=== PATIENT | male | born 1940 | race Caucasian/White ===

== ENCOUNTER 2020-05-22 09:50 | Outpatient (REF) | payer MEDICARE, SELFPAY ==
[2020-05-22 11:51] LABS: Basophils Percent Auto 0.8 % (0-2); Eosinophils Absolute Auto 0.2 X10*3/uL (0.0-0.4); Eosinophils Percent Auto 3.9 % (0-4); Hematocrit 28.3 % (42-52); Hemoglobin 9.2 g/dl (14.0-18.0); Imm Gran Abs Auto 0.03 X10*3/uL (0.00-0.03); Imm Gran Pct Auto 0.8 % (0.0-0.4); Lymphocytes Absolute Auto 0.6 X10*3/uL (1.2-4.9); Lymphocytes Percent Auto 16.5 % (20-40); MANUAL DIFF FLAG SCAN; Mean Corpuscular HGB Conc 32.5 g/dl (31.0-36.0); Mean Corpuscular Hemoglobin 33.9 pg (27.0-33.0); Mean Corpuscular Volume 104.4 fL (80-98); Monocytes Absolute Auto 0.5 X10*3/uL (0.1-1.2); Monocytes Percent Auto 13.7 % (2-11); Neutrophils Absolute Auto 2.5 X10*3/uL (2.0-8.3); Neutrophils Percent Auto 64.3 % (45-73); Platelet Count 172 X10*3/uL (160-400); Red Blood Count 2.71 X10*6/uL (4.60-5.80); Red Cell Distribution Width 13.2 % (11.0-16.0); SCAN SMEAR FLAG 1; White Blood Count 3.9 X10*3/uL (4.8-10.8)
[2020-05-22 12:10] LABS: Alanine Aminotransferase 42 U/L (0-40); Albumin Level 3.9 g/dL (3.5-5.0); Alkaline Phosphatase 77 U/L (39-117); Anion Gap 13 (12-20); Aspartate Amino Transferase 56 U/L (5-37); Bilirubin Total 0.8 mg/dL (0.0-1.0); Blood Urea Nitrogen 24 mg/dL (9-16); Calcium 8.2 mg/dL (8.4-10.2); Carbon Dioxide 23 mmol/L (22-29); Chloride 103 mmol/L (96-108); Cholesterol 113 mg/dL; Estimated Glomerular Filt Rate 24; Glucose Fasting 160 mg/dL (60-99); HDL Cholesterol 25 mg/dL; LDL Cholesterol Calculated 61 mg/dl; Potassium 4.8 mmol/l (3.3-5.1); Sodium 134 mmol/L (135-145); Total Protein 7.3 g/dL (6.5-8.0); Triglycerides 139 mg/dL
[2020-05-22 12:13] LABS: B Type Natriuretic Peptide 275 pg/mL (<100)
[2020-05-22 12:34] LABS: Creatinine Urine 33.93 mg/dL; Microalbum/Creatinine Ratio Ur 144.4 ug/mg cr
[2020-05-22 12:36] LABS: T4 Thyroxine 9.7 ug/dL (4.5-12.0); Thyroid Stimulating Hormone 4.71 uIU/mL (0.32-4.0); Vitamin D 25-OH Total 29.8 ng/mL (>30)
[2020-05-22 12:41] LABS: Folate 3.5 ng/mL (> or = 4.0); Vitamin B12 301 pg/mL (200-900)
[2020-05-22 13:14] LABS: SLIDE REVIEW VERIFIED
[2020-05-23 12:17] LABS: Free Prostate Spec Ag 0.9 ng/mL; Percent Free Prostate Spec Ag 16 % (calc) (>25); Prostate Specific Ag Total 5.8 ng/mL (< OR = 4.0)
== END 2020-05-22 09:51 | disposition home or self-care (01) ==
LOC: HO.HMGCLDS 09:50
PROVIDERS: PCP Internal Medicine; Visit Provider Urology
DX: R94.6 Abnormal results of thyroid function studies (principal); E11.65 Type 2 diabetes mellitus with hyperglycemia; I13.0 Hypertensive heart and chronic kidney disease with heart failure and stage 1 through stage 4 chronic kidney disease, or unspecified chronic kidney disease; I50.9 Heart failure, unspecified; N18.4 Chronic kidney disease, stage 4 (severe); E11.22 Type 2 diabetes mellitus with diabetic chronic kidney disease; I25.10 Atherosclerotic heart disease of native coronary artery without angina pectoris; E66.9 Obesity, unspecified; E78.00 Pure hypercholesterolemia, unspecified; I48.91 Unspecified atrial fibrillation
CPT/HCPCS: 36415; 80053; 80061; 82043; 82306; 82607; 82746; 83880; 84153; 84436; 84443; 85025

== ENCOUNTER 2020-10-03 14:58 | Outpatient (REF) | payer MEDICARE, SELFPAY ==
--- NOTE | ~2020-10-03 | XR_ITS ---
EXAMINATION: XR CHEST XR RIBS, RIGHT CLINICAL INFORMATION: Fall, trauma, right rib pain. COMPARISON: Chest radiographs 09/15/2019, 10/12/2018 TECHNIQUE: Frontal and lateral views of the chest are obtained along with 3 views of the right ribs for a total of 5 views. FINDINGS: There is minimally displaced fracture distal end right ninth rib. There is questionable hairline fracture distal eighth rib on one of the views. A lucency overlying the distal right 11th rib on one of the views may be related to skin fold artifact rather than fracture. There is no destructive process. The lungs are clear. There is no pneumothorax or pleural reaction or effusion. No airspace consolidation. There is bipolar pacemaker again noted. The cardiac and hilar and mediastinal contours are stable. Mild degenerative changes again seen thoracic spine. XR/XR ribs RT 2V IMPRESSION: 1. Minimally displaced fracture distal end right 9th rib. Questionable hairline fracture 8th rib. Probable skin fold artifact overlying distal right 11th rib rather than fracture. 2. No pneumothorax, airspace consolidation, pleural reaction, or effusion.
--- NOTE | ~2020-10-03 | XR_ITS ---
EXAMINATION: XR CHEST XR RIBS, RIGHT CLINICAL INFORMATION: Fall, trauma, right rib pain. COMPARISON: Chest radiographs 09/15/2019, 10/12/2018 TECHNIQUE: Frontal and lateral views of the chest are obtained along with 3 views of the right ribs for a total of 5 views. FINDINGS: There is minimally displaced fracture distal end right ninth rib. There is questionable hairline fracture distal eighth rib on one of the views. A lucency overlying the distal right 11th rib on one of the views may be related to skin fold artifact rather than fracture. There is no destructive process. The lungs are clear. There is no pneumothorax or pleural reaction or effusion. No airspace consolidation. There is bipolar pacemaker again noted. The cardiac and hilar and mediastinal contours are stable. Mild degenerative changes again seen thoracic spine. XR/XR chest 2V IMPRESSION: 1. Minimally displaced fracture distal end right 9th rib. Questionable hairline fracture 8th rib. Probable skin fold artifact overlying distal right 11th rib rather than fracture. 2. No pneumothorax, airspace consolidation, pleural reaction, or effusion.
[2020-10-03 16:38] LABS: Glucose Urine UA NEG (NEG); Leukocyte Esterase Urine NEG (NEG); Nitrite Urine NEG (NEG); Urine Blood 3+ (NEG); Urine Ketones NEG (NEG); Urine Protein 1+ MG/DL (NEG-TRACE)
[2020-10-03 16:39] LABS: Appearance Urine CLEAR; Color Urine YELLOW
[2020-10-03 16:47] LABS: Basophils Percent Auto 0.5 % (0-2); Eosinophils Absolute Auto 0.1 X10*3/uL (0.0-0.4); Eosinophils Percent Auto 2.3 % (0-4); Imm Gran Abs Auto 0.05 X10*3/uL (0.00-0.03); Imm Gran Pct Auto 1.1 % (0.0-0.4); Lymphocytes Absolute Auto 0.5 X10*3/uL (1.2-4.9); MANUAL DIFF FLAG SCAN; Mean Corpuscular HGB Conc 32.7 g/dl (31.0-36.0); Mean Platelet Volume 10.5 fL (9.4-12.4); Monocytes Absolute Auto 0.8 X10*3/uL (0.1-1.2); Monocytes Percent Auto 18.8 % (2-11); Neutrophils Absolute Auto 2.9 X10*3/uL (2.0-8.3); Neutrophils Percent Auto 65.3 % (45-73); Platelet Count 102 X10*3/uL (160-400); Red Cell Distribution Width 16.3 % (11.0-16.0); SCAN SMEAR FLAG 1; White Blood Count 4.4 X10*3/uL (4.8-10.8)
[2020-10-03 16:52] LABS: Bacteria Urine TRACE /LPF; RBC Urine 30-49 /HPF (0); Squamous Epithelial Cell Urine 1+ /LPF
[2020-10-03 16:53] LABS: Mucus Urine 2+ /LPF
[2020-10-03 17:03] LABS: Alanine Aminotransferase 72 U/L (0-40); Albumin Level 3.4 g/dL (3.5-5.0); Alkaline Phosphatase 181 U/L (39-117); Anion Gap 19 (12-20); Aspartate Amino Transferase 118 U/L (5-37); Bilirubin Total 1.4 mg/dL (0.0-1.0); Blood Urea Nitrogen 36 mg/dL (9-16); Calcium 8.6 mg/dL (8.4-10.2); Carbon Dioxide 23 mmol/L (22-29); Chloride 103 mmol/L (96-108); Estimated Glomerular Filt Rate 26; Glucose Random 168 mg/dL (60-115); Potassium 4.2 mmol/L (3.3-5.1); Sodium 141 mmol/L (135-145); Total Protein 7.6 g/dL (6.5-8.0)
[2020-10-03 17:27] LABS: Creatinine Urine 77.61 mg/dL; Microalbum/Creatinine Ratio Ur 144.3 ug/mg cr
[2020-10-03 17:30] LABS: Hemoglobin 6.8 g/dl (14.0-18.0)
[2020-10-03 17:31] LABS: Hematocrit 20.8 % (42-52)
[2020-10-03 17:42] LABS: SLIDE REVIEW VERIFIED
[2020-10-04 08:09] LABS: Estimated Average Glucose 120 mg/dL; Hemoglobin A1c % 5.8 %
== END 2020-10-03 14:59 | disposition home or self-care (01) ==
LOC: HO.HMGCX 14:58
PROVIDERS: PCP Internal Medicine; Visit Provider Nurse Practitioner Family
DX: Z13.89 Encounter for screening for other disorder (principal)
CPT/HCPCS: 36415; 71046; 71100; 80053; 81001; 82043; 83036; 85025; 87086

== ENCOUNTER 2020-10-03 18:12 | Inpatient (IN) | payer MEDICARE, SELFPAY ==
[2020-10-03] VITALS (8 sets, daily range): BP systolic 113–135; BP diastolic 41–59; PULSE 90–105; RESP 16–22; TEMP 36.4–37.1; O2SAT 93–100; BMI 27.8
[2020-10-03 18:27] LABS: Glucose, Whole Blood 143 mg/dL (60-115)
--- NOTE | 2020-10-03 18:50 | ECG_ITS ---
Test Reason : RECHECK Blood Pressure : / mmHG Vent. Rate : 094 BPM Atrial Rate : 094 BPM P-R Int : 208 ms QRS Dur : 098 ms QT Int : 422 ms P-R-T Axes : 119 -01 106 degrees QTc Int : 527 ms Normal sinus rhythm Left ventricular hypertrophy with repolarization abnormality ST depression in anterior, lateral leads, LVH vs ischemia; Prolonged QT Abnormal ECG When compared with ECG of 06-MAY-2018 09:40, Sinus rhythm has replaced Electronic ventricular pacemaker Referred By: Tomasz Sarmiento Electronically Signed By:LILIYA FUENTES
--- NOTE | 2020-10-03 18:52 | ED_ITS ---
HPI - General Adult General Chief complaint: Recheck/Abnormal Lab/Rx Stated complaint: light headed Time Seen by Provider: 10/03/20 18:38 Source: patient Mode of arrival: EMS Limitations: no limitations History of Present Illness HPI narrative: Patient with history of atrial fibrillation on Eliquis with recent admission in [facility] for gross hematuria hemoccult was also positive requiring 5 units of blood transfusion patient refused colonoscopy at that time comes here from outpatient clinic for hemoglobin of 6.8 patient been feeling weak and tired for last few days denies any chest pain or shortness of breath just feels exhausted patient denies any melena or gross hematuria Patient's old records were reviewed from [facility] patient been going in and out at [facility] since July for hematuria does have a complex medical history includes hypertension hyperlipidemia congestive heart failure grade 2 diastolic dysfunction coronary artery disease status post stent placement diabetes mellitus paroxysmal AFib on Eliquis with pacemaker, chronic renal disease stage III history of bilateral renal artery stenosis post stenting history of prostate cancer status post prostatectomy nephrolithiasis with hydronephrosis status post left ureteral stent placement and gross hematuria from 08/17 till 08/27 patient also had enterococcal bacteremia during admission patient required 5 units of blood transfusion for hemoglobin of 7.6 patient discharged on Zyvox until 09/28 Related Data Home Medications Medication Instructions Recorded Confirmed albuterol sulfate 90 mcg/actuation 2 puff INHALATION Q4-6H PRN 05/29/20 10/03/20 aerosol inhaler amiodarone 200 mg tablet 200 mg PO DAILY 05/29/20 10/03/20 cetirizine 10 mg capsule 10 mg PO QPM cap 05/29/20 10/03/20 insulin degludec 100 unit/mL (3 30 unit SUBCUT DAILY ml 05/29/20 10/03/20 mL) subcutaneous pen linagliptin 5 mg tablet 5 mg PO DAILY 05/29/20 10/03/20 omega 7-tlb-wzo-fish oil 1,200 mg 1 cap PO DAILY cap 05/29/20 10/03/20 (144 mg-216 mg) capsule rosuvastatin 20 mg tablet 20 mg PO QPM 05/29/20 10/03/20 apixaban 5 mg tablet 2.5 mg PO BID tab 10/03/20 10/03/20 metoprolol succinate 100 mg 100 mg PO QAM 10/03/20 10/03/20 capsule sprinkle, ext. release 24 hr torsemide 20 mg tablet 20 mg PO BID 10/03/20 10/03/20 Previous Rx's Medication Instructions Recorded zolpidem 5 mg tablet 5 mg PO BEDTIME PRN #90 tab 05/29/20 hydrocortisone 2.5 % topical cream 1 ea KS BID-QID PRN #30 g 08/02/20 with perineal applicator Allergies Allergy/AdvReac Type Severity Reaction Status Date / Time No Known Allergies Allergy Verified 10/03/20 18:33 [No Known Allergies*] Review of Systems Review of Systems: Constitutional : No Weight loss, No Fever, No Chills weakness++ ENT/Mouth : No sore throat, No Rhinorrhea Eyes: No Eye Pain, No Swelling Cardiovascular : No Chest Pain, no palpitations Respiratory : No Cough, No Sputum, no shortness of breath Gastrointestinal : no Nausea, No Vomiting, No Diarrhea, No abdominal Pain, no black stools Genitourinary : No Dysuria, No Urinary Frequency Musculoskeletal : No joint pain, No Myalgias, No Joint Swelling Skin : No Skin Lesions, No rash Neuro : No Weakness, No Numbness, No Dizziness, No Headache Psych : No Anxiety/Panic, No Depression Heme/Lymph: No Bruising, No Lymphadenopathy Endocrine : No Polyuria, No Polydipsia All other systems reviewed and are negative [facility] Past Medical History Medical History Abdominal aortic aneurysm Atrial fibrillation Chronic kidney disease (CKD) stage G4/A1, severely decreased glomerular filtration rate (GFR) between 15-29 mL/min/1.73 square meter and albuminuria creatinine ratio less than 30 mg/g Congestive heart failure Coronary artery disease History of CVA (cerebrovascular accident) History of prostate cancer Hypercholesterolemia Hypertension Insomnia Legally blind in right eye, as defined in [place] Obesity (BMI 30-39.9) Peripheral vascular disease Renal artery stenosis Retinal detachment Type 2 diabetes mellitus with hyperglycemia Surgical History History of cataract surgery History of pacemaker History of prostatectomy History of thumb surgery History of tonsillectomy Renal calculi Family History Family History Father No problems noted. Mother No problems noted. Social History Social History Household Members: Spouse Housing: Condominium Do you presently have visiting nurse or other home services: Yes Smoking Status: Never smoker Use of substances other than those prescribed or required for medical reasons: No Have you been hit, kicked, punched, or otherwise hurt by someone within the past year? If so, by whom?: No Do you feel safe in your current relationship?: Yes Is there a partner from a previous relationship who is making you feel unsafe now?: No Are you made to feel afraid or neglected: No Advance Directives: No Advance Directives Information Provided: No Do you have thoughts of harming others: None Do you have a plan to hurt others: No Plan Recently lost weight without trying: No Physical Exam Vital Signs: Vital Signs: Last Vital Signs Temp 97.5 F 10/04/20 00:09 Pulse 90 10/04/20 00:09 Resp 16 10/04/20 00:09 BP 116/48 L 10/04/20 00:09 Pulse Ox 93 10/03/20 23:36 Body Mass Index 27.8 Const: General: no acute distress, well developed and other (Pale looking) Nutritional Appearance: well nourished HENMT: Head: Yes normocephalic and Yes atraumatic Ears: hearing grossly normal bilaterally General nose exam: Normal external nose present Mouth: Normal oral and palatal mucosa present Teeth and gingiva: dentition normal Eyes: Conjunctivae: conjunctival abnormal (Pallor) Sclerae: sclerae normal Corneas: corneas normal Pupils: Equal, round and reactive pupils present Neck: Neck: Yes normal visual inspection and Yes no JVD Thyroid: Thyroid normal Chest: Chest palpation & inspection: normal inspection of the chest Resp: Effort & Inspection: normal respiratory effort Auscultation: clear to auscultation bilaterally and crackles (Bilateral at bases) Cardio: Jugular venous distension: no JVD Palpation: normal PMI Rate: regular rate Rhythm: regular rhythm Heart sounds: S1 normal heart sound present and S2 normal heart sound present GI: Inspection: Yes normal to inspection Auscultation: normal bowel sounds Rectal Exam - Male: Yes visual inspection normal, Yes heme positive stool and Yes other (Brown stool) Neuro: Cranial nerves: Yes Equal, round and reactive pupils present Medical Decision Making MDM Narrative Medical decision making narrative: Patient with significant anemia him hemoglobin at the time of discharge from [facility] was 10.2 at that time patient deferred colonoscopy since discharge patient denies any black stool or gross hematuria and hemoglobin is still dropped with his baseline hemoglobin of about 12. Also has decreased white count and platelet count possible patient has bone marrow suppression secondary to possible medication/infection /stress /myelofibrosis Patient will receive blood transfusions and plan to see rn infusion Lab Data Lab results reviewed: Yes I reviewed the patient's lab results. Result diagrams: 10/04/20 00:52 10/04/20 00:53 Labs: Lab Results 10/03/20 10/03/20 10/03/20 Range/Units 18:24 18:49 18:49 PT (10.8-13.0) SEC INR (0.9-1.1) APTT (24.1-38.0) SEC POC Glucose 143 H (60-115) mg/dL Troponin I High Sens (<3.5-35.0) ng/L B-Natriuretic Peptide (<100) pg/mL Stool Occult Blood POSITIVE (NEGATIVE) COVID-19 (NATACHA) (Negative) [employer] Blood Type O Negative Antibody Screen NEGATIVE Crossmatch See Detail 10/03/20 10/03/20 10/03/20 Range/Units 19:10 19:10 19:10 PT 16.6 H (10.8-13.0) SEC INR 1.4 H (0.9-1.1) APTT 32.7 (24.1-38.0) SEC POC Glucose (60-115) mg/dL Troponin I High Sens 159.1 H (<3.5-35.0) ng/L B-Natriuretic Peptide (<100) pg/mL Stool Occult Blood (NEGATIVE) COVID-19 (NATACHA) Negative (Negative) [employer] See Note Blood Type Antibody Screen Crossmatch 10/03/20 Range/Units 19:10 PT (10.8-13.0) SEC INR (0.9-1.1) APTT (24.1-38.0) SEC POC Glucose (60-115) mg/dL Troponin I High Sens (<3.5-35.0) ng/L B-Natriuretic Peptide 886 H (<100) pg/mL Stool Occult Blood (NEGATIVE) COVID-19 (NATACHA) (Negative) COVID-19 Clin Com Blood Type Antibody Screen Crossmatch ECG Data Attestation: I personally reviewed and interpreted this ECG as follows: Interpretation: Normal sinus rhythm LVH heart rate 94 beats per minute normal intervals normal axis no acute ischemic changes Discharge Plan Discharge Clinical Impression: Severe anemia, Occult GI bleeding Patient Disposition: Admitted As Inpatient Interventions: Admission Worksheet (ED) Last Done: 10/04/20 00:44 Discharge Date/Time: 10/03/20 23:00
[2020-10-03] MEDS: Pantoprazole Sodium 40 MG/10 ML VIAL IVPUSH (18:59)
[2020-10-03 19:03] LABS: OBS Int Ctl Valid YES; OBS1 POSITIVE (NEGATIVE)
[2020-10-03 19:38] LABS: INTERNATIONAL NORM RATIO 1.4 (0.9-1.1); Prothrombin Time 16.6 SEC (10.8-13.0)
[2020-10-03 19:40] LABS: Partial Thromboplastin Time 32.7 SEC (24.1-38.0)
[2020-10-03 19:42] LABS: COVID-19 Test Negative (Negative)
[2020-10-03 19:47] LABS: B Type Natriuretic Peptide 886 pg/mL (<100)
[2020-10-03 20:00] LABS: Troponin-I High Sensitivity 159.1 ng/L (<3.5-35.0)
--- NOTE | 2020-10-03 20:39 | PC.NURSE ---
pt tolerating first transfusion well. skin colour improving. remains slightly sob at rest. hospitalist to bedside. awaiting bed assignment.
--- NOTE | 2020-10-03 21:40 | P.HPHOSP_ITS ---
History of Present Illness Date of Service: 10/03/20 Chief Complaint: abnormal lab This is a 80-year-old male with extensive past medical history that includes hypertension, type 2 diabetes, CHF preserved ejection fraction, AFib, CVA, prostate cancer status post prostatectomy, HLD, who presents to the hospital sta ting that he had abnormal labs. Of note patient had an extensive hospital stay at [facility] in August and in September for various reasons including in August for acute hypoxic respiratory failure secondary to decompensated CHF as well as lower GI bleed as well as hematuria secondary to left ureteral stone, he was managed with placement of ureteral stent and was sent home. In early September patient once again return to the hospital after removal of the ureteral stent resulted in hematuria but he also had sepsis secondary to Enterococcus bacteremia. Patient was discharged from the hospital on September 18 and has been doing well. He comes from home today stating that he had routine lab work done for his doctor which showed hemoglobin was low and therefore he was asked to come to the hospital. He denies any melena, he denies any martinez hematuria, denies any bright red blood per rectum. He has no hemoptysis, hematochezia, or hematemesis. He had refused colonoscopy at [facility]. He denies any nausea vomiting, no abdominal pain, no diarrhea constipation. He denies any headache, no change in vision, no chest pain or shortness of breath. He denies any cough, and no lower extremity edema. No orthopnea or PND. He has been feeling fatigued and slightly dizzy today otherwise doing well. On arrival to the ED patient's vital significant for 98.4, heart rate of 99, respiratory rate of 20, blood pressure 135/59, satting 100% on room air WBC count 3.8, hemoglobin of 6.8 status post 1 unit of PRBC in the ED, discharge hemoglobin from [facility] was 7.6 on September 18, PT of 16.6, INR 1.4, sodium of 136, potassium of 4.2, high sensitivity troponin of 159.1, and BNP of 886, UA that is positive for blood and RBC, COVID-19 negative, stool occult blood positive Past medical history as below and confirmed with patient Review of Systems Review of Systems: Yes all other systems are reviewed and are negative [facility] Medical History Abdominal aortic aneurysm Atrial fibrillation Chronic kidney disease (CKD) stage G4/A1, severely decreased glomerular filtration rate (GFR) between 15-29 mL/min/1.73 square meter and albuminuria creatinine ratio less than 30 mg/g Congestive heart failure Coronary artery disease History of CVA (cerebrovascular accident) History of prostate cancer Hypercholesterolemia Hypertension Insomnia Legally blind in right eye, as defined in [place] Obesity (BMI 30-39.9) Peripheral vascular disease Renal artery stenosis Retinal detachment Type 2 diabetes mellitus with hyperglycemia Family History Father No problems noted. Mother No problems noted. Surgical History History of cataract surgery History of pacemaker History of prostatectomy History of thumb surgery History of tonsillectomy Renal calculi Social History Household Members: Spouse [facility] Do you presently have visiting nurse or other home services: Yes Smoking Status: Never smoker Use of substances other than those prescribed or required for medical reasons: No Have you been hit, kicked, punched, or otherwise hurt by someone within the past year? If so, by whom?: No Do you feel safe in your current relationship?: Yes Is there a partner from a previous relationship who is making you feel unsafe now?: No Are you made to feel afraid or neglected: No Advance Directives: No Advance Directives Information Provided: No Do you have thoughts of harming others: None Do you have a plan to hurt others: No Plan Recently lost weight without trying: No Meds Allergies Allergy/AdvReac Type Severity Reaction Status Date / Time No Known Allergies Allergy Verified 10/03/20 18:33 [No Known Allergies*] Active Medications: Current Medications Generic Name Dose Route Start Last Admin Trade Name Freq PRN Reason Stop Dose Admin Pantoprazole Sodium 40 mg 10/04/20 06:30 Pantoprazole Sodium 40 Mg/10 Ml Vial IVPUSH [id number] [facility] Consult 1 each 10/03/20 19:43 Consult Rx Perform Med Rec MISCELLANE ONCE PRN Consult order Home Medications Medication Instructions Recorded Confirmed Last Taken Type albuterol sulfate 90 mcg/actuation 2 puff INHALATION Q4-6H PRN 05/29/20 10/03/20 Unknown History aerosol inhaler amiodarone 200 mg tablet 200 mg PO DAILY 05/29/20 10/03/20 Unknown History cetirizine 10 mg capsule 10 mg PO QPM cap 05/29/20 10/03/20 Unknown History insulin degludec 100 unit/mL (3 30 unit SUBCUT DAILY ml 05/29/20 10/03/20 Unknown History mL) subcutaneous pen linagliptin 5 mg tablet 5 mg PO DAILY 05/29/20 10/03/20 Unknown History omega 2-nhl-cli-fish oil 1,200 mg 1 cap PO DAILY cap 05/29/20 10/03/20 Unknown History (144 mg-216 mg) capsule rosuvastatin 20 mg tablet 20 mg PO QPM 05/29/20 10/03/20 Unknown History apixaban 5 mg tablet 2.5 mg PO BID tab 10/03/20 10/03/20 Unknown History metoprolol succinate 100 mg 100 mg PO QAM 10/03/20 10/03/20 Unknown History capsule sprinkle, ext. release 24 hr torsemide 20 mg tablet 20 mg PO BID 10/03/20 10/03/20 Unknown History Physical Exam Vital Signs and Narrative: Vital Signs: Last Vital Signs Temp 98.8 F 10/03/20 20:38 Pulse 97 10/03/20 20:38 Resp 22 H 10/03/20 20:38 BP 113/45 L 10/03/20 20:38 Pulse Ox 99 10/03/20 20:20 Body Mass Index 27.8 Const: General: cooperative and no acute distress Orientation/consciousness: patient oriented x3 Eyes: Other: legally blind in right eye General: appearance normal, both eyes and all related structures Resp: Effort & Inspection: normal respiratory effort and able to speak in complete sentences Auscultation: clear to auscultation bilaterally Cardio: Rate: regular rate Rhythm: regular rhythm GI: Palpation (GI): Soft to palpation Auscultation: normal bowel sounds Skin: General skin exam: no rashes or lesions noted Neuro: General: patient oriented x3 Cognition (Neuro): normal cognition Extrem: General: Yes normal to inspection and Yes no pedal edema Results Labs CBC and Chem 7: 10/04/20 00:52 10/04/20 00:53 Labs: Laboratory Results - last 24 hr 10/03/20 10/03/20 10/03/20 18:24 18:49 18:49 PT INR APTT POC Glucose 143 H Troponin I High Sens B-Natriuretic Peptide Stool Occult Blood POSITIVE COVID-19 ([facility]ACHA) COVID-19 Clin Com Blood Type O Negative Antibody Screen NEGATIVE Crossmatch See Detail 10/03/20 10/03/20 10/03/20 19:10 19:10 19:10 PT 16.6 H INR 1.4 H APTT 32.7 POC Glucose Troponin I High Sens 159.1 H B-Natriuretic Peptide Stool Occult Blood COVID-19 (NATACHA) Negative COVID-19 Clin Com See Note Blood Type Antibody Screen Crossmatch 10/03/20 19:10 PT INR APTT POC Glucose Troponin I High Sens B-Natriuretic Peptide 886 H Stool Occult Blood COVID-19 (NATACHA) COVID-19 Clin Com Blood Type Antibody Screen Crossmatch Assessment and Plan (1) Severe anemia: Status: Acute (2) Occult GI bleeding: Status: Acute (3) Acquired pancytopenia: Status: Acute 80-year-old male with past medical history of AFib on apixaban, CHF with preserved ejection fraction, hypertension, diabetes, CAD who presents to the hospital with low hemoglobin # macrocytic anemia - patient had anemia at [facility] as well but at that time refused colonoscopy - placental hemoglobin of 6.9 with positive stool occult blood - received 1 unit of PRBC in the - denies using NSAIDs, no melena, no bright red blood per rectum plan: - will consult GI - started on 40 IV of pantoprazole b.i.d. - NPO for potential EGD/colonoscopy - transfusion threshold with a hemoglobin less than 7 # pancytopenia - patient has leukopenia, platelets also low - no acute evidence of infection - will monitor with repeat CBC # GI bleed - hemodynamically stable, with no large bleed - at this time will start him on pantoprazole, consult GI, make NPO # CHF - although patient has elevated BNP, he clinically does not have any evidence of CHF - has no dyspnea, no lower extremity edema, no orthopnea, no PND - will continue home dose of torsemide 20 mg b.i.d. - daily weight, and monitor I&O # atrial fibrillation - continue metoprolol, amiodarone, hold apixaban # diabetes - hold oral antihyperglycemic - start low-dose sliding scale insulin and continue home dose of insulin degludec - diabetic diet # hypertension - stable DVT prophylaxis: SCDs
--- NOTE | 2020-10-03 22:27 | PC.NURSE ---
PT TOLERATING 2ND BLOOD TRANSFUSION WELL. CALL MADE UP TO FLOOR FOR REPORT.
--- NOTE | 2020-10-03 23:25 | PC.NURSE ---
PTTRANSPORTED TO FLOOR, BLOOD STILL INFUSING.
[2020-10-04] VITALS (13 sets, daily range): BP systolic 102–119; BP diastolic 47–55; PULSE 65–92; RESP 16–20; TEMP 36.1–37.2; O2SAT 94–99
--- NOTE | 2020-10-04 | ECG_ITS ---
Test Reason : ELEVATED TROPONIN Blood Pressure : / mmHG Vent. Rate : 089 BPM Atrial Rate : 089 BPM P-R Int : 212 ms QRS Dur : 098 ms QT Int : 444 ms P-R-T Axes : 104 -02 127 degrees QTc Int : 540 ms Sinus rhythm with 1st degree A-V block Left ventricular hypertrophy with repolarization abnormality ST depression in anterior and lateral leads- LVH vs ischemia; Prolonged QT Abnormal ECG When compared with ECG of 03-OCT-2020 20:56, No significant change was found Referred By: Tomasz Sarmiento Electronically Signed By:LILIYA FUENTES
[2020-10-04] MEDS: Furosemide 20 MG/2 ML VIAL IVPUSH (00:06)
[2020-10-04] MEDS: 0.9 % Sodium Chloride Flush 3 ML SYRINGE IVFLUSH ×4 (00:07→23:47)
[2020-10-04 00:55] LABS: Glucose, Whole Blood 149 mg/dL (60-115)
[2020-10-04 01:08] LABS: Basophils Percent Auto 0.3 % (0-2); Eosinophils Absolute Auto 0.1 X10*3/uL (0.0-0.4); Eosinophils Percent Auto 2.9 % (0-4); Hematocrit 23.5 % (42-52); Hemoglobin 7.9 g/dl (14.0-18.0); Imm Gran Abs Auto 0.08 X10*3/uL (0.00-0.03); Imm Gran Pct Auto 2.1 % (0.0-0.4); Lymphocytes Absolute Auto 0.5 X10*3/uL (1.2-4.9); Lymphocytes Percent Auto 14.2 % (20-40); MANUAL DIFF FLAG SCAN; Mean Corpuscular HGB Conc 33.6 g/dl (31.0-36.0); Mean Corpuscular Hemoglobin 32.4 pg (27.0-33.0); Mean Corpuscular Volume 96.3 fL (80-98); Mean Platelet Volume 10.3 fL (9.4-12.4); Monocytes Absolute Auto 0.7 X10*3/uL (0.1-1.2); Monocytes Percent Auto 19.4 % (2-11); Neutrophils Absolute Auto 2.3 X10*3/uL (2.0-8.3); Neutrophils Percent Auto 61.1 % (45-73); Platelet Count 89 X10*3/uL (160-400); Red Blood Count 2.44 X10*6/uL (4.60-5.80); Red Cell Distribution Width 18.5 % (11.0-16.0); SCAN SMEAR FLAG 1; White Blood Count 3.8 X10*3/uL (4.8-10.8)
[2020-10-04 01:24] LABS: SLIDE REVIEW VERIFIED
[2020-10-04 01:37] LABS: Anion Gap 17 (12-20); Blood Urea Nitrogen 32 mg/dL (9-16); Calcium 8.1 mg/dL (8.4-10.2); Carbon Dioxide 22 mmol/L (22-29); Chloride 101 mmol/L (96-108); Creatinine Clr Calc Pharmacy 26.4; Estimated Glomerular Filt Rate 27; Glucose Random 165 mg/dL (60-115); Potassium 3.6 mmol/L (3.3-5.1); Sodium 136 mmol/L (135-145)
[2020-10-04 02:26] LABS: Glucose Urine UA NEG (NEG); Leukocyte Esterase Urine NEG (NEG); Nitrite Urine NEG (NEG); Specific Gravity - Urine 1.015 (1.005-1.025); Urine Blood 1+ (NEG); Urine Ketones NEG (NEG); Urine Protein TRACE MG/DL (NEG-TRACE)
[2020-10-04 02:28] LABS: Appearance Urine CLEAR; Color Urine YELLOW
[2020-10-04 02:32] LABS: Bacteria Urine 1+ /LPF; Squamous Epithelial Cell Urine 1+ /LPF
[2020-10-04 05:02] LABS: MANUAL DIFF FLAG NO
[2020-10-04 05:06] LABS: Basophils Percent Auto 0.8 % (0-2); Eosinophils Absolute Auto 0.1 X10*3/uL (0.0-0.4); Eosinophils Percent Auto 3.3 % (0-4); Hematocrit 23.2 % (42-52); Hemoglobin 7.7 g/dl (14.0-18.0); Imm Gran Abs Auto 0.08 X10*3/uL (0.00-0.03); Lymphocytes Absolute Auto 0.8 X10*3/uL (1.2-4.9); Lymphocytes Percent Auto 20.2 % (20-40); Mean Corpuscular HGB Conc 33.2 g/dl (31.0-36.0); Mean Corpuscular Volume 96.3 fL (80-98); Mean Platelet Volume 10.2 fL (9.4-12.4); Monocytes Absolute Auto 0.7 X10*3/uL (0.1-1.2); Monocytes Percent Auto 18.7 % (2-11); Neutrophils Absolute Auto 2.2 X10*3/uL (2.0-8.3); Red Blood Count 2.41 X10*6/uL (4.60-5.80); Red Cell Distribution Width 18.6 % (11.0-16.0); White Blood Count 3.9 X10*3/uL (4.8-10.8)
[2020-10-04 05:15] LABS: Platelet Count 83 X10*3/uL (160-400)
[2020-10-04 05:51] LABS: Anion Gap 14 (12-20); Blood Urea Nitrogen 31 mg/dL (9-16); Calcium 7.8 mg/dL (8.4-10.2); Carbon Dioxide 24 mmol/L (22-29); Chloride 102 mmol/L (96-108); Creatinine Clr Calc Pharmacy 27.2; Estimated Glomerular Filt Rate 28; Glucose Random 134 mg/dL (60-115); Potassium 3.4 mmol/L (3.3-5.1); Sodium 137 mmol/L (135-145)
[2020-10-04 06:10] LABS: Troponin-I High Sensitivity 229.6 ng/L (<3.5-35.0)
[2020-10-04 06:13] LABS: Thyroid Stimulating Hormone 3.83 uIU/mL (0.32-4.0)
[2020-10-04] MEDS: Pantoprazole Sodium 40 MG/10 ML VIAL IVPUSH ×2 (06:27→16:01)
[2020-10-04 07:52] LABS: Glucose, Whole Blood 137 mg/dL (60-115)
[2020-10-04] MEDS: Amiodarone HCL 200 MG TABLET PO (07:55)
[2020-10-04] MEDS: Metoprolol Succinate ER 100 MG TAB.ER.24H PO (07:56)
[2020-10-04] MEDS: Atorvastatin Calcium 80 MG TABLET PO (07:56)
[2020-10-04] MEDS: Torsemide 20 MG TABLET PO ×2 (07:58→20:51)
[2020-10-04 08:49] LABS: Folate 2.6 ng/mL (> or = 4.0); Vitamin B12 426 pg/mL (200-900)
--- NOTE | 2020-10-04 09:00 | P.CDIC_ITS ---
CDI Concurrent Query Service Date: 10/04/20 Documentation Clarification: Please clarify if you are treating a proba ble/suspected/likely or confirmed: Acute Blood Loss Anemia No Acute Blood Loss Anemia Provider Response: Acute Blood Loss Anemia PLEASE DO NOT DELETE/MODIFY EXISTING CONTENT Additional information is needed in order to code to the highest accuracy and appropriate Severity of Illness (SOI). Please clarify the information noted below in your progress notes and discharge summary. Risk Factors/Clinical Indicators/Treatments 80 year old male admitted with abnormal labs, weak. Per H&P: Severe Anemia, Occult GIB, Acquired Pancytopenia stool occult blood + received blood transfusion, IV PPI H/H 6.8/20.8 CDS: Deb Carty RN Contact Number: [phone] Please Review the information above and exercise your independent professional judgment in responding to the query. If you concur, pleas document in the PROGRESS NOTES and DISCHARGE SUMMARY. If you do not agree with the query, please document in the query above. THIS QUERY IS PART OF THE PERMANENT MEDICAL RECORD
[2020-10-04 11:33] LABS: Glucose, Whole Blood 142 mg/dL (60-115)
--- NOTE | 2020-10-04 13:42 | MHC.CM.PN ---
IMM 10/04/20, EMR REVIEWED, PT ADMITTED W/GI BLEED, CM MET W/PT WHO IS ALERT AND ORIENTED, PT'S REPORTS HE SOUNDED CONFUSED ON THE PHONE HOWEVER PT WAS ABLE TO ANSWER ALL OF CM'S QUESTIONS EXCEPT WHICH [facility] COMPANY HE IS USING, PER PT HE LIVES W/ NEGRITO MARCUM, PT REPORTS HE IS INDEPENDENT WITH ALL CARE AT HOME, PT REPORTS HE USES A FRONT WHEELED WALKER AND HAS RAILS BY DOOR TO HOUSE FROM GARAGE AND IN BATHROOM, PT RERPORTS HE HAS WEEKLY VNA AND PER THEY ASSESS HIS VITAL SIGNS AND ASK HIM SEVERAL QUESTIONS, PLAN IS TO START PT ON HOME PT WHEN FRACTURED RIBS HAVE HEALED MORE, PT HAS NO OTHER SERVICES AT HOME. DISCHARGE PLAN: HOME W/RESUMP OF [facility]ERTIN [facility]ACHU[facility], TO TRANSPORT PCP: MU SALAZAR HCP: NEGRITO DEVI () [phone]
--- NOTE | 2020-10-04 14:03 | P.PNIM_ITS ---
Subjective Subjective Date of Service: 10/04/20 Interval History: Seen in f/u for anemia, positive occult blood, no dizziness, no chest pain and no sob at this time, transfused overnight and does feel better Review of Systems Gen: no fever Resp: no sob, no cough CV: no chest, no WRIGHT, no leg edema GI: No n/v, no abd pain, no active bleed Neuro: No confusion Physical Exam Vital Signs: Vital Signs: Last Vital Signs Temp 98.2 F 10/04/20 11:40 Pulse 76 10/04/20 11:40 Resp 19 10/04/20 11:40 BP 102/54 L 10/04/20 11:40 Pulse Ox 95 10/04/20 11:40 Body Mass Index 27.8 General: AO X 3, no acute distress Resp: CTA bilateral CVS: S1,S2,RRR GI: +BS, NT, no distention, rectal exam defered Skin: No rash Neuro: motor grossly intact Psych: appropriate affect Objective Data Current Medications Generic Name Dose Route Start Last Admin Trade Name Petersonq PRN Reason Stop Dose Admin Acetaminophen 650 mg 10/03/20 22:47 Acetaminophen 325 Mg Tablet PO Q6H PRN Pain, Mild (Pain Scale 1-3) Albuterol Sulfate 2 puff 10/03/20 22:47 Albuterol Sulfate 90 Mcg 8 Gm Inhaler INHALE Q4H PRN Wheezing Amiodarone HCl 200 mg 10/04/20 09:00 10/04/20 07:55 Amiodarone Hcl 200 Mg Tablet PO 200 mg DAILY JEANETTE Administration Atorvastatin Calcium 80 mg 10/04/20 09:00 10/04/20 07:56 Atorvastatin Calcium 80 Mg Tablet PO 80 mg DAILY JEANETTE Administration Docusate Sodium 100 mg 10/03/20 22:47 Docusate Sodium 100 Mg Capsule PO DAILY PRN Constipation Hydrocortisone 1 appl 10/03/20 22:47 Hydrocortisone 2.5 % Rectal Cr [address] QID PRN hemorrhoids Insulin Glargine 21 unit 10/04/20 09:00 10/04/20 07:58 Insulin Glargine,Hum.Rec.Anlog 100 Unit/Ml 10 Ml Vial SUBCUT Not Given DAILY [facility] Insulin Human Lispro 0 unit 10/04/20 07:30 10/04/20 11:35 Insulin Lispro 100 Unit/Ml 3 Ml Vial SUBCUT Not Given QIDACHS [facility] Protocol Loratadine 10 mg 10/03/20 22:47 10/04/20 00:08 Loratadine 10 Mg Tablet PO Not Given DAILY@1700 [facility] Metoprolol Succinate 100 mg 10/04/20 09:00 10/04/20 07:56 Metoprolol Succinate Er 100 Mg Tab.Er.24h PO 100 mg DAILY [facility] Administration Protocol Ondansetron HCl 4 mg 10/03/20 22:47 Ondansetron Hcl 4 Mg/2 Ml Vial IVPUSH Q8H PRN Nausea and Vomiting Pantoprazole Sodium 40 mg 10/04/20 06:30 10/04/20 06:27 Pantoprazole Sodium 40 Mg/10 Ml Vial IVPUSH 40 mg BID@0630,1630 [facility] Administration Pharmacy Consult 1 each 10/03/20 19:43 Consult Rx Perform Med Rec MISCELLANE ONCE PRN Consult order Sodium Chloride 3 ml 10/04/20 00:00 10/04/20 07:55 0.9 % Sodium Chloride Flush 3 Ml Syringe IVFLUSH 3 ml QSHIFT [facility] Administration Torsemide 20 mg 10/04/20 09:00 10/04/20 07:58 Torsemide 20 Mg Tablet PO 20 mg BID [facility] Administration Protocol Zolpidem Tartrate 5 mg 10/03/20 22:47 Zolpidem Tartrate 5 Mg Tablet PO BEDTIME PRN sleep Labs CBC & Chem 7: 10/04/20 04:43 10/04/20 04:43 Assessment and Plan (1) Severe anemia: Status: Acute (2) Occult GI bleeding: Status: Acute (3) Acquired pancytopenia: Status: Acute Assessment and Plan: 80-year-old male with past medical history of AFib on apixaban, CHF with preserved ejection fraction, hypertension, diabetes, CKD, CAD who presents to the hospital with much lower hemoglobin than baseline anemia # Acute blood loss anemia/macrocytic anemia/+occult blood - He has previously declined colonocopy at [facility] Presented with Hgb of 6.9 with positive stool occult blood - received 1 unit of PRBC in the and hgb now 7.7 and no active blee - denies using NSAIDs, no melena, no bright red blood per rectum - Consult GI - 40mg IV of pantoprazole b.i.d. - NPO for potential EGD/colonoscopy - transfusion threshold with a hemoglobin less than 7 # pancytopenia - patient has leukopenia, platelets also low -May benefit from outpatient heme w/u - will monitor with repeat CBC # CHF-compensated despite high BNP, continue torsemide # Atrial fibrillation - continue metoprolol, amiodarone, hold apixaban d/t anemia and likely gib # diabetes - hold oral antihyperglycemic - sliding scale insulin and continue home dose of insulin degludec - diabetic diet # hypertension - stable CKD 3, stable DVT prophylaxis: SCDs
--- NOTE | 2020-10-04 15:23 | MHC.SHP ---
Pre-Procedural Eval Section A The patient is an INPATIENT: Yes Changes since office visit: No Cold of Flu in the past 2 weeks, No New Medical Problems, No Changes in Medication and No Patient answered all questions The History & Physical has been completed within 30 days and I have reviewed it.: Yes Section B Chief Complaint: GI Bleed Allergies: Allergies Allergy/AdvReac Type Severity Reaction Status Date / Time No Known Allergies Allergy Verified 10/03/20 18:33 [No Known Allergies*] Plan I have reviewed the history and physical and performed a pertinent physical examination on my patient. No changes have occurred unless specified.
--- NOTE | 2020-10-04 15:24 | PM.EVENT ---
Event Note Date of Service: 10/04/20 Event Note: consult dictated Discussed egd/colonoscopy with patient for further evaluation of heme positive stool. He is agreeable, scheduled for 10/05.
[2020-10-04] MEDS: Loratadine 10 MG TABLET PO (16:01)
[2020-10-04 16:27] LABS: Glucose, Whole Blood 124 mg/dL (60-115)
[2020-10-04] MEDS: PEG 3350/Na Sulf,Bicarb,Cl/KCL 4,000 ML SOLN.RECON 4000 ML PO (18:01)
[2020-10-04] MEDS: Phytonadione (Vit K1) 10 MG in 0.9 % Sodium Chloride 50 ML 51 MG IV (18:07)
[2020-10-04 20:36] LABS: Glucose, Whole Blood 142 mg/dL (60-115)
--- NOTE | 2020-10-04 21:33 | CONS_ITS ---
DATE OF SERVICE: 10/04/2020 REFERRING PHYSICIAN: Deandre Kearney MD REASON FOR CONSULTATION: Anemia with Hemoccult-positive stools. HISTORY OF PRESENT ILLNESS: The patient is a pleasant 80-year-old man, who was admitted to the hospital after he was called by his provider for a low blood count. He has had a recent hospitalization at [facility] for multiple issues including congestive heart failure, kidney stone with hematuria and lower GI bleeding. He was seen in followup by his provider, who did blood work and documented a hematocrit of 20.8 and he was advised to come to the emergency room. He received 1 unit of packed red blood cells with improvement in his hematocrit to 23.5. Examination in the emergency room showed Hemoccult-positive stools. He denies any melena, hematemesis, or hematochezia. While at [facility], he did have lower GI bleeding and was seen and scheduled for colonoscopy, but could not tolerate the prep. He believes his last colonoscopy was 10 years ago or more by Dr. Ferrell. He has had no change in his bowel habits and has no upper GI symptoms. He is on Eliquis for atrial fibrillation. Last dose was 10/03 in the a.m. PAST MEDICAL HISTORY: 1. Atrial fibrillation. 2. Diabetes mellitus. 3. Hypertension. 4. Elevated cholesterol. 5. Coronary artery disease with stent placement and congestive heart failure. 6. Prostate cancer, status post prostatectomy. 7. CVA. 8. Chronic kidney disease. 9. Peripheral vascular disease with lower extremity stent placement and renal artery stent placement for renal artery stenosis. CURRENT MEDICATIONS: Current medication list is reviewed in the chart. ALLERGIES: THERE ARE NONE REPORTED. FAMILY HISTORY: This is reviewed with the patient and is positive for prostate cancer in his father. He denies any family history of GI malignancy. SOCIAL HISTORY: He does not smoke and there is no history of alcohol abuse. REVIEW OF SYSTEMS: SKIN: No pruritus. HEENT: Negative. CARDIOPULMONARY: No shortness of breath or chest pain. GASTROINTESTINAL: As above. GENITOURINARY: Negative. NEUROPSYCHIATRIC: Negative. PHYSICAL EXAMINATION: GENERAL: Shows a pleasant male, in no acute distress. VITAL SIGNS: Stable. SKIN: Pale. HEENT: Shows no scleral icterus. NECK: Without lymphadenopathy or thyromegaly. LUNGS: Clear. HEART: Irregular, S1, S2. No murmur. ABDOMEN: Soft without focal masses or tenderness. Bowel sounds are present. No organomegaly is noted. EXTREMITIES: Without edema. LABORATORY DATA: Remarkable for white blood cell count of 3.9, platelet count 83, hematocrit 23.2. IMPRESSION: Anemia with Hemoccult-positive stools. I discussed the differential diagnosis with him including GI tract blood loss from an upper or lower source. I have recommended further evaluation with endoscopy and colonoscopy. We discussed risks and benefits of both procedures today. He understands these and agrees to proceed. This will be arranged for tomorrow. I would recommend transfusing him 1 more unit of packed red blood cells given his multiple comorbid conditions. Thanks for asking me to see him. I will follow him in the hospital with you. MD GUSTABO Shukla/ALLISON / [phone]
[2020-10-05] VITALS (9 sets, daily range): BP systolic 98–127; BP diastolic 48–69; PULSE 63–84; RESP 16–20; TEMP 36.2–37.1; O2SAT 94–97
[2020-10-05] MEDS: Pantoprazole Sodium 40 MG/10 ML VIAL IVPUSH ×2 (06:03→17:03)
[2020-10-05 06:39] LABS: Hematocrit 26.7 % (42-52); Mean Corpuscular HGB Conc 33.7 g/dl (31.0-36.0); Mean Corpuscular Hemoglobin 32.1 pg (27.0-33.0); Mean Corpuscular Volume 95.4 fL (80-98); Mean Platelet Volume 10.4 fL (9.4-12.4); NRBC Pct Auto 0.7 /100WBC (0.0-0.2); Platelet Count 114 X10*3/uL (160-400); Red Cell Distribution Width 17.4 % (11.0-16.0); White Blood Count 4.4 X10*3/uL (4.8-10.8)
[2020-10-05 06:45] LABS: INTERNATIONAL NORM RATIO 1.2 (0.9-1.1); Prothrombin Time 13.8 SEC (10.8-13.0)
[2020-10-05 08:28] LABS: Glucose, Whole Blood 142 mg/dL (60-115)
[2020-10-05] MEDS: Amiodarone HCL 200 MG TABLET PO (08:34)
[2020-10-05] MEDS: Torsemide 20 MG TABLET PO ×2 (08:34→20:55)
[2020-10-05] MEDS: Metoprolol Succinate ER 100 MG TAB.ER.24H PO (08:34)
[2020-10-05] MEDS: 0.9 % Sodium Chloride Flush 3 ML SYRINGE IVFLUSH ×3 (08:35→20:56)
[2020-10-05] MEDS: Atorvastatin Calcium 80 MG TABLET PO (08:35)
--- NOTE | 2020-10-05 11:02 | P.CONAN_ITS ---
[facility] Active Problems Active Problems: All Active Problems (Updated 10/04/20 @ 01:23 by Bebeto Duque MD) Severe anemia (Acute) Occult GI bleeding (Acute) Acquired pancytopenia (Acute) Fall (Acute) Sepsis (Acute) Hypercholesterolemia (Acute) Atrial fibrillation (Acute) Obesity (BMI 30-39.9) (Acute) Chronic kidney disease (CKD) stage G4/A1, severely decreased glomerular filtration rate (GFR) between 15-29 mL/min/1.73 square meter and albuminuria creatinine ratio less than 30 mg/g (Acute) Hypertension (Acute) Type 2 diabetes mellitus with hyperglycemia (Acute) Insomnia (Acute) Congestive heart failure (Acute) Rectal bleed (Acute) Past Medical History Medical History Abdominal aortic aneurysm Atrial fibrillation Chronic kidney disease (CKD) stage G4/A1, severely decreased glomerular filtration rate (GFR) between 15-29 mL/min/1.73 square meter and albuminuria creatinine ratio less than 30 mg/g Congestive heart failure Coronary artery disease History of CVA (cerebrovascular accident) History of prostate cancer Hypercholesterolemia Hypertension Insomnia Legally blind in right eye, as defined in [place] Obesity (BMI 30-39.9) Peripheral vascular disease Renal artery stenosis Retinal detachment Type 2 diabetes mellitus with hyperglycemia Family History Family History Father No problems noted. Mother No problems noted. Surgical History Surgical History History of cataract surgery History of pacemaker History of prostatectomy History of thumb surgery History of tonsillectomy Renal calculi Social History Social History Household Members: Spouse Housing: [facility] Smoking Status: Never smoker service: Yes Current occupational status: retired Meds Allergies Allergy/AdvReac Type Severity Reaction Status Date / Time No Known Allergies Allergy Verified 10/03/20 18:33 [No Known Allergies*] Active Medications: Current Medications Generic Name Dose Route Start Last Admin Trade Name Freq PRN Reason Stop Dose Admin Acetaminophen 650 mg 10/03/20 22:47 Acetaminophen 325 Mg Tablet PO Q6H PRN Pain, Mild (Pain Scale 1-3) Albuterol Sulfate 2 puff 10/03/20 22:47 Albuterol Sulfate 90 Mcg 8 Gm Inhaler INHALE Q4H PRN Wheezing Amiodarone HCl 200 mg 10/04/20 09:00 10/05/20 08:34 Amiodarone Hcl 200 Mg Tablet PO 200 mg DAILY [facility] Administration Atorvastatin Calcium 80 mg 10/04/20 09:00 10/05/20 08:35 Atorvastatin Calcium 80 Mg Tablet PO 80 mg DAILY JEANETTE Administration Docusate Sodium 100 mg 10/03/20 22:47 Docusate Sodium 100 Mg Capsule PO DAILY PRN Constipation Hydrocortisone 1 appl 10/03/20 22:47 Hydrocortisone 2.5 % Rectal Cr 30 Gm Tube TN QID PRN hemorrhoids Insulin Glargine 21 unit 10/04/20 09:00 10/05/20 08:37 Insulin Glargine,Hum.Rec.Anlog 100 Unit/Ml 10 Ml Vial SUBCUT Not Given DAILY [facility] Insulin Human Lispro 0 unit 10/04/20 07:30 10/05/20 08:15 Insulin Lispro 100 Unit/Ml 3 Ml Vial SUBCUT Not Given QIDACHS [facility] Protocol Loratadine 10 mg 10/03/20 22:47 10/04/20 16:01 Loratadine 10 Mg Tablet PO 10 mg DAILY@1700 [facility] Administration Metoprolol Succinate 100 mg 10/04/20 09:00 10/05/20 08:34 Metoprolol Succinate Er 100 Mg Tab.Er.24h PO 100 mg DAILY [facility] Administration Protocol Ondansetron HCl 4 mg 10/03/20 22:47 Ondansetron Hcl 4 Mg/2 Ml Vial IVPUSH Q8H PRN Nausea and Vomiting Pantoprazole Sodium 40 mg 10/04/20 06:30 10/05/20 06:03 Pantoprazole Sodium 40 Mg/10 Ml Vial IVPUSH 40 mg BID@0630,1630 [facility] Administration Pharmacy Consult 1 each 10/03/20 19:43 Consult Rx Perform Med Rec MISCELLANE ONCE PRN Consult order Sodium Chloride 3 ml 10/04/20 00:00 10/05/20 08:35 0.9 % Sodium Chloride Flush 3 Ml Syringe IVFLUSH 3 ml QSHIFT [facility] Administration Torsemide 20 mg 10/04/20 09:00 10/05/20 08:34 Torsemide 20 Mg Tablet PO 20 mg BID [facility] Administration Protocol Zolpidem Tartrate 5 mg 10/03/20 22:47 Zolpidem Tartrate 5 Mg Tablet PO BEDTIME PRN sleep Home Medications Medication Instructions Recorded Confirmed Last Taken Type albuterol sulfate 90 mcg/actuation 2 puff INHALATION Q4-6H PRN 05/29/20 10/03/20 Unknown History aerosol inhaler amiodarone 200 mg tablet 200 mg PO DAILY 05/29/20 10/03/20 Unknown History cetirizine 10 mg capsule 10 mg PO QPM cap 05/29/20 10/03/20 Unknown History insulin degludec 100 unit/mL (3 30 unit SUBCUT DAILY ml 05/29/20 10/03/20 Unknown History mL) subcutaneous pen linagliptin 5 mg tablet 5 mg PO DAILY 05/29/20 10/03/20 Unknown History omega 6-nck-qmg-fish oil 1,200 mg 1 cap PO DAILY cap 05/29/20 10/03/20 Unknown History (144 mg-216 mg) capsule rosuvastatin 20 mg tablet 20 mg PO QPM 05/29/20 10/03/20 Unknown History apixaban 5 mg tablet 2.5 mg PO BID tab 10/03/20 10/03/20 Unknown History metoprolol succinate 100 mg 100 mg PO QAM 10/03/20 10/03/20 Unknown History capsule sprinkle, ext. release 24 hr torsemide 20 mg tablet 20 mg PO BID 10/03/20 10/03/20 Unknown History Exam Exam Date and Time: October 05, 2020 1102 Height,Weight and Vital Signs: Height 5 ft 7 in Weight 80.739 kg Last Vital Signs Temp 98.8 F 10/05/20 10:49 Pulse 69 10/05/20 10:49 Resp 16 10/05/20 10:49 BP 116/48 L 10/05/20 10:49 Pulse Ox 94 10/05/20 10:49 Pertinent Lab Results Pertinent Lab Results: Laboratory Tests 10/03/20 10/03/20 10/03/20 18:24 18:49 18:49 WBC RBC Hgb Hct MCV MCH MCHC RDW Plt Count MPV Immature Gran % (Auto) Neut % (Auto) Lymph % (Auto) Amelia % (Auto) Eos % (Auto) Baso % (Auto) Lymph # (Auto) Amelia # (Auto) Eos # (Auto) Baso # (Auto) Abs Immat Gran (auto) Absolute Neuts (auto) Absolute Nucleated RBC Nucleated RBC % (auto) Smear Tech's Comments PT INR APTT Sodium Potassium Chloride Carbon Dioxide Anion Gap BUN Creatinine Estim Creat Clear Calc Estimated GFR POC Glucose 143 H Random Glucose Calcium Troponin I High Sens B-Natriuretic Peptide Vitamin B12 Folate TSH Urine Color Urine Appearance Urine pH Ur Specific [place] Urine Protein Urine Glucose (UA) Urine Ketones Urine Blood Urine Nitrite Ur Leukocyte Esterase Urine RBC Urine WBC Ur Squamous Epith Cells Urine Bacteria Stool Occult Blood POSITIVE COVID-19 (NATACHA) COVID-[employer] Com Blood Type O Negative Antibody Screen NEGATIVE Crossmatch See Detail 10/03/20 10/03/20 10/03/20 19:10 19:10 19:10 WBC RBC Hgb Hct MCV MCH MCHC RDW Plt Count MPV Immature Gran % (Auto) Neut % (Auto) Lymph % (Auto) Amelia % (Auto) Eos % (Auto) Baso % (Auto) Lymph # (Auto) Amelia # (Auto) Eos # (Auto) Baso # (Auto) Abs Immat Gran (auto) Absolute Neuts (auto) Absolute Nucleated RBC Nucleated RBC % (auto) Smear Tech's Comments PT 16.6 H INR 1.4 H APTT 32.7 Sodium Potassium Chloride Carbon Dioxide Anion Gap BUN Creatinine Estim Creat Clear Calc Estimated GFR POC Glucose Random Glucose Calcium Troponin I High Sens 159.1 H B-Natriuretic Peptide Vitamin B12 Folate TSH Urine Color Urine Appearance Urine pH Ur Specific [place] Urine Protein Urine Glucose (UA) Urine Ketones Urine Blood Urine Nitrite Ur Leukocyte Esterase Urine RBC Urine WBC Ur Squamous Epith Cells Urine Bacteria Stool Occult Blood COVID-19 (NATACHA) Negative [employer] [facility] Com See Note Blood Type Antibody Screen Crossmatch 10/03/20 10/04/20 10/04/20 19:10 00:50 00:52 WBC 3.8 L RBC 2.44 L D Hgb 7.9 L Hct 23.5 L MCV 96.3 D MCH 32.4 MCHC 33.6 RDW 18.5 H Plt Count 89 L MPV 10.3 Immature Gran % (Auto) 2.1 H Neut % (Auto) 61.1 Lymph % (Auto) 14.2 L Amelia % (Auto) 19.4 H Eos % (Auto) 2.9 Baso % (Auto) 0.3 Lymph # (Auto) 0.5 L Amelia # (Auto) 0.7 Eos # (Auto) 0.1 Baso # (Auto) 0.0 Abs Immat Gran (auto) 0.08 H Absolute Neuts (auto) 2.3 Absolute Nucleated RBC 0.000 Nucleated RBC % (auto) 0.0 Smear Tech's Comments VERIFIED PT INR APTT Sodium Potassium Chloride Carbon Dioxide Anion Gap BUN Creatinine Estim Creat Clear Calc Estimated GFR POC Glucose 149 H Random Glucose Calcium Troponin I High Sens B-Natriuretic Peptide 886 H Vitamin B12 Folate TSH Urine Color Urine Appearance Urine pH Ur Specific [place] Urine Protein Urine Glucose (UA) Urine Ketones Urine Blood Urine Nitrite Ur Leukocyte Esterase Urine RBC Urine WBC Ur Squamous Epith Cells Urine Bacteria Stool Occult Blood COVID-19 (NATACHA) COVID-19 Clin Com Blood Type Antibody Screen Crossmatch 10/04/20 10/04/20 10/04/20 00:53 02:13 04:43 WBC 3.9 L RBC 2.41 L Hgb 7.7 L Hct 23.2 L MCV 96.3 MCH 32.0 MCHC 33.2 RDW 18.6 H Plt Count 83 L MPV 10.2 Immature Gran % (Auto) 2.0 H Neut % (Auto) 55.0 Lymph % (Auto) 20.2 Amelia % (Auto) 18.7 H Eos % (Auto) 3.3 Baso % (Auto) 0.8 Lymph # (Auto) 0.8 L Amelia # (Auto) 0.7 Eos # (Auto) 0.1 Baso # (Auto) 0.0 Abs Immat Gran (auto) 0.08 H Absolute Neuts (auto) 2.2 Absolute Nucleated RBC 0.000 Nucleated RBC % (auto) 0.0 Smear Tech's Comments PT INR APTT Sodium 136 Potassium 3.6 Chloride 101 Carbon Dioxide 22 Anion Gap 17 BUN 32 H Creatinine 2.34 H Estim Creat Clear Calc 26.4 Estimated GFR 27 POC Glucose Random Glucose 165 H Calcium 8.1 L Troponin I High Sens B-Natriuretic Peptide Vitamin B12 Folate TSH Urine Color YELLOW Urine Appearance CLEAR Urine pH 7.0 Ur Specific [place] 1.015 Urine Protein TRACE Urine Glucose (UA) NEG Urine Ketones NEG Urine Blood 1+ H Urine Nitrite NEG Ur Leukocyte Esterase NEG Urine RBC 5-9 H Urine WBC 1-4 Ur Squamous Epith Cells 1+ Urine Bacteria 1+ Stool Occult Blood COVID-19 (NATACHA) COVID-19 Clin Com Blood Type Antibody Screen Crossmatch 10/04/20 10/04/20 10/04/20 04:43 04:43 04:43 WBC RBC Hgb Hct MCV MCH MCHC RDW Plt Count MPV Immature Gran % (Auto) Neut % (Auto) Lymph % (Auto) Amelia % (Auto) Eos % (Auto) Baso % (Auto) Lymph # (Auto) Amelia # (Auto) Eos # (Auto) Baso # (Auto) Abs Immat Gran (auto) Absolute Neuts (auto) Absolute Nucleated RBC Nucleated RBC % (auto) Smear Tech's Comments PT INR APTT Sodium 137 Potassium 3.4 Chloride 102 Carbon Dioxide 24 Anion Gap 14 BUN 31 H Creatinine 2.27 H Estim Creat Clear Calc 27.2 Estimated GFR 28 POC Glucose Random Glucose 134 H Calcium 7.8 L Troponin I High Sens 229.6 H B-Natriuretic Peptide Vitamin B12 426 Folate 2.6 L TSH 3.83 Urine Color Urine Appearance Urine pH Ur Specific [place] Urine Protein Urine Glucose (UA) Urine Ketones Urine Blood Urine Nitrite Ur Leukocyte Esterase Urine RBC Urine WBC Ur Squamous Epith Cells Urine Bacteria Stool Occult Blood COVID-19 (NATACHA) TORCH.sh Blood Type Antibody Screen Crossmatch 10/04/20 10/04/20 10/04/20 07:27 11:28 16:18 WBC RBC Hgb Hct MCV MCH MCHC RDW Plt Count MPV Immature Gran % (Auto) Neut % (Auto) Lymph % (Auto) Amelia % (Auto) Eos % (Auto) Baso % (Auto) Lymph # (Auto) Amelia # (Auto) Eos # (Auto) Baso # (Auto) Abs Immat Gran (auto) Absolute Neuts (auto) Absolute Nucleated RBC Nucleated RBC % (auto) Smear Tech's Comments PT INR APTT Sodium Potassium Chloride Carbon Dioxide Anion Gap BUN Creatinine Estim Creat Clear Calc Estimated GFR POC Glucose 137 H 142 H 124 H Random Glucose Calcium Troponin I High Sens B-Natriuretic Peptide Vitamin B12 Folate TSH Urine Color Urine Appearance Urine pH Ur Specific [place] Urine Protein Urine Glucose (UA) Urine Ketones Urine Blood Urine Nitrite Ur Leukocyte Esterase Urine RBC Urine WBC Ur Squamous Epith Cells Urine Bacteria Stool Occult Blood COVID-19 (NATACHA) [facility] Blood Type Antibody Screen Crossmatch 10/04/20 10/05/20 10/05/20 20:30 05:50 05:50 WBC 4.4 L RBC 2.80 L Hgb 9.0 L Hct 26.7 L MCV 95.4 MCH 32.1 MCHC 33.7 RDW 17.4 H Plt Count 114 L D MPV 10.4 Immature Gran % (Auto) Neut % (Auto) Lymph % (Auto) Amelia % (Auto) Eos % (Auto) Baso % (Auto) Lymph # (Auto) Amelia # (Auto) Eos # (Auto) Baso # (Auto) Abs Immat Gran (auto) Absolute Neuts (auto) Absolute Nucleated RBC 0.030 H Nucleated RBC % (auto) 0.7 H Smear Tech's Comments PT 13.8 H INR 1.2 H APTT Sodium Potassium Chloride Carbon Dioxide Anion Gap BUN Creatinine Estim Creat Clear Calc Estimated GFR POC Glucose 142 H Random Glucose Calcium Troponin I High Sens B-Natriuretic Peptide Vitamin B12 Folate TSH Urine Color Urine Appearance Urine pH Ur Specific [place] Urine Protein Urine Glucose (UA) Urine Ketones Urine Blood Urine Nitrite Ur Leukocyte Esterase Urine RBC Urine WBC Ur Squamous Epith Cells Urine Bacteria Stool Occult Blood COVID-19 (NATACHA) [facility] Blood Type Antibody Screen Crossmatch 10/05/20 08:11 WBC RBC Hgb Hct MCV MCH MCHC RDW Plt Count MPV Immature Gran % (Auto) Neut % (Auto) Lymph % (Auto) Amelia % (Auto) Eos % (Auto) Baso % (Auto) Lymph # (Auto) Amelia # (Auto) Eos # (Auto) Baso # (Auto) Abs Immat Gran (auto) Absolute Neuts (auto) Absolute Nucleated RBC Nucleated RBC % (auto) Smear Tech's Comments PT INR APTT Sodium Potassium Chloride Carbon Dioxide Anion Gap BUN Creatinine Estim Creat Clear Calc Estimated GFR POC Glucose 142 H Random Glucose Calcium Troponin I High Sens B-Natriuretic Peptide Vitamin B12 Folate TSH Urine Color Urine Appearance Urine pH Ur Specific [place] Urine Protein Urine Glucose (UA) Urine Ketones Urine Blood Urine Nitrite Ur Leukocyte Esterase Urine RBC Urine WBC Ur Squamous Epith Cells Urine Bacteria Stool Occult Blood COVID-19 (NATACHA) [facility] Blood Type Antibody Screen Crossmatch Airway Mallampati Class: II TM Dist: >3cm Neck ROM: Full Loose/Missing/Broken Teeth: No Heart: RRR Lungs: NL Assessment and Plan Assessment Anesthesia Assessment: Anesthesia Plan Discussed and Chart Reviewed Final Anesthetic Review NPO: Yes ASA Class: IV Final Preanesthetic Review: No Changes in Pt Med Stat, Meds/Allgs Chart Reviewed, Consent Obtained/Reviewed and Anes Risks/Benef Reviewed Patient Risk: High Procedure Risk: Low Anesthetic Plan Anesthetic Plan: MAC: Disposition: Standard PACU
--- NOTE | 2020-10-05 12:04 | PM.OP ---
Brief Operative Note Date of Service: 10/05/20 Pre-op diagnosis: anemia, heme pos Post-op diagnosis: same (colon polyps) Surgeon: Vasquez Larson Anesthesia: MAC Estimated blood loss (mL): 10 Pathology: other (polyps, rectal bxs) Condition: stable Disposition: PACU
--- NOTE | 2020-10-05 12:05 | PM.EVENT ---
Event Note Date of Service: 10/05/20 Event Note: egd/colon dictated EGD basically normal multiple colon polyps, snared and biopsied rectal bxs obtained to r/o radiation proctitis advance diet hold eliquis x 1 week
--- NOTE | 2020-10-05 12:43 | OP_ITS ---
SURGEON: Vasquez Larson MD INDICATIONS: Anemia and Hemoccult-positive stools. PREOPERATIVE DIAGNOSIS: POSTOPERATIVE DIAGNOSIS: PROCEDURE PERFORMED: Upper endoscopy, colonoscopy to the terminal ileum with biopsy and snare polypectomy. ESTIMATED BLOOD LOSS: COMPLICATIONS: ANESTHESIA: ASSISTANTS: SPECIMENS: MEDICATIONS: Monitored anesthesia care. DESCRIPTION OF PROCEDURE: History and physical performed. The risks and benefits of the procedure were explained to the patient. Informed consent was obtained. The patient was placed in the left lateral decubitus position. The Olympus video gastroscope was introduced into the esophagus, stomach, and duodenum. Examination was performed and the scope was removed. He was repositioned for colonoscopy. A digital rectal exam was performed and was found to be normal. The Olympus pediatric video colonoscope was introduced into the rectum and advanced to the cecum without difficulty. The cecum was identified by transillumination, palpation, and identification of ileocecal valve. Examination was performed and the scope was removed. He tolerated both procedures well and was transferred to recovery area in stable condition. FINDINGS: UPPER ENDOSCOPY: ESOPHAGUS: The esophagus showed multiple venous lakes. There was no esophagitis. There was a nonobstructive partial Schatzki ring at the EG junction. STOMACH: The stomach was normal. DUODENUM: The bulb and second portion were normal. COLONOSCOPY: The terminal ileum was examined and appeared normal. The visualized colonic mucosa was normal. There was a large amount of liquid and formed stool present, limiting the examination for detection of small polyps. This was washed and suctioned as best possible. Multiple polyps were identified and removed using biopsy forceps and snare cautery. The largest of these measured approximately 10 mm. Polyps were located in the cecum at 70 cm, 60 cm, 45 cm, 25 cm and in the rectum. There was sigmoid diverticulosis. There appeared to be some telangiectasias in the rectum consistent with prior radiation therapy. Rectal biopsies were obtained. Retroflexed examination showed internal hemorrhoids. IMPRESSION: 1. Normal upper endoscopy. 2. Colon polyps. RECOMMENDATIONS: 1. Advanced diet. 2. Follow up the biopsy results. 3. Hold anticoagulation for 1 week. MD GUSTABO Shukal/NOAHL / [id number]
--- NOTE | 2020-10-05 13:31 | P.PNIM_ITS ---
Subjective Subjective Date of Service: 10/05/20 Interval History: Seen in f/u for anemia, positive occult blood, no dizziness, no chest pain and no sob at this time. No bleeding Review of Systems Gen: no fever Resp: no sob, no cough CV: no chest, no WRIGHT, no leg edema GI: No n/v, no abd pain, no active bleed Neuro: No confusion Physical Exam Vital Signs: Vital Signs: Last Vital Signs Temp 97.1 F 10/05/20 13:21 Pulse 68 10/05/20 13:21 Resp 17 10/05/20 13:21 BP 122/56 L 10/05/20 13:21 Pulse Ox 94 10/05/20 13:21 Body Mass Index 27.8 General: AO X 3, no acute distress Resp: CTA bilateral CVS: S1,S2,RRR GI: +BS, NT, no distention Skin: No rash Neuro: motor grossly intact Psych: appropriate affect Objective Data Current Medications Generic Name Dose Route Start Last Admin Trade Name Freq PRN Reason Stop Dose Admin Acetaminophen 650 mg 10/03/20 22:47 Acetaminophen 325 Mg Tablet PO Q6H PRN Pain, Mild (Pain Scale 1-3) Albuterol Sulfate 2 puff 10/03/20 22:47 Albuterol Sulfate 90 Mcg 8 Gm Inhaler INHALE Q4H PRN Wheezing Amiodarone HCl 200 mg 10/04/20 09:00 10/05/20 08:34 Amiodarone Hcl 200 Mg Tablet PO 200 mg DAILY JEANETTE Administration Atorvastatin Calcium 80 mg 10/04/20 09:00 10/05/20 08:35 Atorvastatin Calcium 80 Mg Tablet PO 80 mg DAILY JEANETTE Administration Docusate Sodium 100 mg 10/03/20 22:47 Docusate Sodium 100 Mg Capsule PO DAILY PRN Constipation Hydrocortisone 1 appl 10/03/20 22:47 Hydrocortisone 2.5 % Rectal Cr 30 Gm Tube ME QID PRN hemorrhoids Insulin Glargine 21 unit 10/04/20 09:00 10/05/20 08:37 Insulin Glargine,Hum.Rec.Anlog 100 Unit/Ml 10 Ml Vial SUBCUT Not Given DAILY [facility] Insulin Human Lispro 0 unit 10/04/20 07:30 10/05/20 11:20 Insulin Lispro 100 Unit/Ml 3 Ml Vial SUBCUT Not Given QIDACHS [facility] Protocol Loratadine 10 mg 10/03/20 22:47 10/04/20 16:01 Loratadine 10 Mg Tablet PO 10 mg DAILY@1700 [facility] Administration Metoprolol Succinate 100 mg 10/04/20 09:00 10/05/20 08:34 Metoprolol Succinate Er 100 Mg Tab.Er.24h PO 100 mg DAILY [facility] Administration Protocol Ondansetron HCl 4 mg 10/03/20 22:47 Ondansetron Hcl 4 Mg/2 Ml Vial IVPUSH Q8H PRN Nausea and Vomiting Pantoprazole Sodium 40 mg 10/04/20 06:30 10/05/20 06:03 Pantoprazole Sodium 40 Mg/10 Ml Vial IVPUSH 40 mg BID@0630,1630 [facility] Administration Pharmacy Consult 1 each 10/03/20 19:43 Consult Rx Perform Med Rec MISCELLANE ONCE PRN Consult order Sodium Chloride 3 ml 10/04/20 00:00 10/05/20 08:35 0.9 % Sodium Chloride Flush 3 Ml Syringe IVFLUSH 3 ml QSHIFT [facility] Administration Torsemide 20 mg 10/04/20 09:00 10/05/20 08:34 Torsemide 20 Mg Tablet PO 20 mg BID [facility] Administration Protocol Zolpidem Tartrate 5 mg 10/03/20 22:47 Zolpidem Tartrate 5 Mg Tablet PO BEDTIME PRN sleep Labs CBC & Chem 7: 10/05/20 05:50 10/04/20 04:43 Assessment and Plan (1) Severe anemia: Status: Acute (2) Occult GI bleeding: Status: Acute (3) Acquired pancytopenia: Status: Acute Assessment and Plan: 80-year-old male with past medical history of AFib on apixaban, CHF with preserved ejection fraction, hypertension, diabetes, CKD, CAD who presents to the hospital with much lower hemoglobin than baseline anemia # Acute blood loss anemia/macrocytic anemia/+occult blood - He has previously declined colonocopy at [facility] Presented with Hgb of 6.9 with positive stool occult blood - received 1 unit of PRBC in the and hgb now 7.7 and no active blee - denies using NSAIDs, no melena, no bright red blood per rectum - Consult GI did EGD today normal -Colonoscopy today showed multiple colon polyps, snared and biopsied rectal bxs obtained to r/o radiation proctitis - change to PO PPI, advance to regular diet and hold Eliquis x 1 week, H/H is better today # pancytopenia - patient has leukopenia, platelets also low -May benefit from outpatient heme w/u - will monitor with repeat CBC # CHF-compensated despite high BNP, continue torsemide # Atrial fibrillation - continue metoprolol, amiodarone, hold apixaban d/t anemia and likely gib # diabetes - hold oral antihyperglycemic - sliding scale insulin and continue home dose of insulin degludec - diabetic diet # hypertension - stable CKD 3, stable DC home later today if not tomorrow. DVT prophylaxis: SCDs
[2020-10-05 16:48] LABS: Glucose, Whole Blood 155 mg/dL (60-115)
[2020-10-05] MEDS: Insulin Lispro 100 UNIT/ML 3 ML VIAL SUBCUT (17:02)
[2020-10-05] MEDS: Loratadine 10 MG TABLET PO (17:03)
[2020-10-05 20:24] LABS: Glucose, Whole Blood 143 mg/dL (60-115)
[2020-10-06] VITALS: PULSE 16
[2020-10-06 03:51] VITALS: BP 119/55; PULSE 74; RESP 16; TEMP 37.4; O2SAT 94
[2020-10-06] MEDS: Pantoprazole Sodium 40 MG/10 ML VIAL IVPUSH (05:49)
[2020-10-06 07:31] VITALS: BP 119/52; PULSE 74; RESP 17; TEMP 37.1; O2SAT 94
[2020-10-06 07:45] LABS: Glucose, Whole Blood 150 mg/dL (60-115)
--- NOTE | 2020-10-06 08:31 | PM.DS ---
DS: Providers Provider Date of Service: 11/11/20 Date of admission: 10/03/20 21:33 Primary care physician: Cammy Rice MD Consults: 10/03/20 22:47 Consult to Gastroenterology Routine Consulting Provider: Valerie Alicea Reason for consultation: GI bleed Has provider been notified: No Consult to Gastroenterology Routine Consulting Provider: Valerie Alicea Reason for consultation: GIU bleed Has provider been notified: No DS: Diagnosis Discharge Diagnosis (1) Severe anemia: Status: Acute (2) Occult GI bleeding: Status: Acute (3) Acquired pancytopenia: Status: Acute DS: Medications Discharge Medications Home Medications: Home Medications Medication Instructions Recorded Confirmed albuterol sulfate 90 mcg/actuation 2 puff INHALATION Q4-6H PRN 05/29/20 10/03/20 aerosol inhaler amiodarone 200 mg tablet 200 mg PO DAILY 05/29/20 10/03/20 cetirizine 10 mg capsule 10 mg PO QPM cap 05/29/20 10/03/20 insulin degludec 100 unit/mL (3 30 unit SUBCUT DAILY ml 05/29/20 10/03/20 mL) subcutaneous pen linagliptin 5 mg tablet 5 mg PO DAILY 05/29/20 10/03/20 omega 6-ule-lyt-fish oil 1,200 mg 1 cap PO DAILY cap 05/29/20 10/03/20 (144 mg-216 mg) capsule rosuvastatin 20 mg tablet 20 mg PO QPM 05/29/20 10/03/20 apixaban 5 mg tablet 2.5 mg PO BID tab 10/03/20 10/03/20 metoprolol succinate 100 mg 100 mg PO QAM 10/03/20 10/03/20 capsule sprinkle, ext. release 24 hr torsemide 20 mg tablet 20 mg PO BID 10/03/20 10/03/20 Previous Rx's Medication Instructions Recorded zolpidem 5 mg tablet 5 mg PO BEDTIME PRN #90 tab 05/29/20 hydrocortisone 2.5 % topical cream 1 ea ND BID-QID PRN #30 g 08/02/20 with perineal applicator DS: Summary Hospital Course Hospital Course: Chief Complaint: abnormal lab This is a 80-year-old male with extensive past medical history that includes hypertension, type 2 diabetes, CHF preserved ejection fraction, AFib, CVA, prostate cancer status post prostatectomy, HLD, who presents to the hospital stating that he had abnormal labs. Of note patient had an extensive hospital stay at [facility] in August and in September for various reasons including in August for acute hypoxic respiratory failure secondary to decompensated CHF as well as lower GI bleed as well as hematuria secondary to left ureteral stone, he was managed with placement of ureteral stent and was sent home. In early September patient once again return to the hospital after removal of the ureteral stent resulted in hematuria but he also had sepsis secondary to Enterococcus bacteremia. Patient was discharged from the hospital on September 18 and has been doing well. He comes from home today stating that he had routine lab work done for his doctor which showed hemoglobin was low and therefore he was asked to come to the hospital. He denies any melena, he denies any martinez hematuria, denies any bright red blood per rectum. He has no hemoptysis, hematochezia, or hematemesis. He had refused colonoscopy at [facility]. He denies any nausea vomiting, no abdominal pain, no diarrhea constipation. He denies any headache, no change in vision, no chest pain or shortness of breath. He denies any cough, and no lower extremity edema. No orthopnea or PND. He has been feeling fatigued and slightly dizzy today otherwise doing well. On arrival to the ED patient's vital significant for 98.4, heart rate of 99, respiratory rate of 20, blood pressure 135/59, satting 100% on room air WBC count 3.8, hemoglobin of 6.8 status post 1 unit of PRBC in the ED, discharge hemoglobin from [facility] was 7.6 on September 18, PT of 16.6, INR 1.4, sodium of 136, potassium of 4.2, high sensitivity troponin of 159.1, and BNP of 886, UA that is positive for blood and RBC, COVID-19 negative, stool occult blood positive Hospital course: # Acute blood loss anemia/macrocytic anemia/+occult blood - He has previously declined colonocopy at [facility] Presented with Hgb of 6.9 with positive stool occult blood - received 1 unit of PRBC in the and hgb now 7.7 and no active bleed - denies using NSAIDs, no melena, no bright red blood per rectum - GI performed EGD and colonoscopy on 10/06 and noted to have multiple colon polyps, snared and biopsied rectal bxs obtained to r/o radiation proctitis .changed to PO PPI, advance to regular diet and hold Eliquis x 1 week, H/H is better today # pancytopenia - patient has leukopenia, platelets also low -May benefit from outpatient heme w/u - will monitor with repeat CBC # CHF-compensated despite high BNP, continue torsemide # Atrial fibrillation - continue metoprolol, amiodarone, hold apixaban for one week, resume October 12 # diabetes--resume home insulin # hypertension--continue metoprolol # continue rosuvastatin for hyperlipidemia CKD 3, stable Time Spent with Patient Time attestation: Total time spent providing and/or coordinating discharge services: Discharge coordination time: Greater than 30 minutes Physical Exam Vital Signs: Vital Signs: Last Vital Signs Temp 98.8 F 10/06/20 07:31 Pulse 74 10/06/20 07:31 Resp 17 10/06/20 07:31 BP 119/52 L 10/06/20 07:31 Pulse Ox 94 10/06/20 07:31 Body Mass Index 27.8 General: AO X 3, no acute distress Resp: CTA bilateral CVS: S1,S2,RRR GI: +BS, NT, no distention Skin: No rash Neuro: motor grossly intact Psych: appropriate affect DS: Data Data Completed and Pending Pending studies at discharge: Pending at discharge 10/05/20 11:39 Surgical [PTH] Routine Labs on day of discharge: Laboratory Results - last 24 hr 10/05/20 10/05/20 10/06/20 16:40 20:15 07:28 POC Glucose 155 H 143 H 150 H Discharge Plan Discharge Anticipated Discharge Date/Time: 10/06/20 08:26 Patient Disposition: Home Health Service Discharge Diagnosis: Anemia, pancytopenia Referrals: [facility] [Outside] Po,Cammy Hatfield MD [Primary Care Provider] - Discharge Medications: Continued hydrocortisone [Proctosol HC] 2.5 % cream with perineal applicator 1 ea ND BID-QID PRN (Reason: hemorrhoids) Qty: 30 RF: 5 omega 3-uzw-spn-fish oil [Fish Oil] 1,200 (144-216) mg capsule 1 cap PO DAILY RF: 0 Zyrtec 10 mg capsule 10 mg PO QPM RF: 0 albuterol sulfate 90 mcg/actuation HFA aerosol inhaler 2 puff inhalation Q4-6H PRN (Reason: Wheezing) RF: 0 rosuvastatin 20 mg tablet 20 mg PO QPM RF: 0 amiodarone 200 mg tablet 200 mg PO DAILY RF: 0 Tresiba FlexTouch U-100 100 unit/mL (3 mL) insulin pen 30 unit subcut DAILY RF: 0 Tradjenta 5 mg tablet 5 mg PO DAILY RF: 0 zolpidem [Ambien] 5 mg tablet 5 mg PO BEDTIME PRN (Reason: sleep) Qty: 90 RF: 0 metoprolol succinate 100 mg capsule,sprinkle,ER 24hr 100 mg PO QAM RF: 0 torsemide 20 mg tablet 20 mg PO BID RF: 0 Held Eliquis 5 mg tablet 2.5 mg PO BID RF: 0 Hold Instructions: Resume on 10/13/20. Hold for 1 week, start taking again on October 13 No Action omeprazole 20 mg tablet,delayed release (DR/EC) 20 mg PO DAILY Qty: 90 RF: 3 Discharge Orders: Discharge Order (Routine); Ordered 10/06/20 Ordered By: Deandre Kearney Diet: advance to usual diet Activity on Discharge: As tolerated Stand Alone Forms: Patient Portal Discharge page Care Plan Goals: follow on biopsy result and locate source of bleed Health Concerns: anemia, gib Plan of Treatment: hold Eliquis for 1 week, take Prilosec as recommended and follow up with your Doctor in a week, call for appointment Assessment: Anemia, occult blood, pancytopenia. Discharge Date/Time: 10/06/20 11:20
--- NOTE | 2020-10-06 08:39 | MHC.CM.PN ---
Addendum entered by Dayana Schwartz 10/06/20 10:23: CORRECTION - PATIENT WAS ACTIVE WITH [facility] PRIOR TO ADMISSION AND AGENCY IS WILLING TO RESUME SERVICES Original Note: PATIENT IS DISCHARGED HOME WITH NO NEED FOR SERVICES. TO TRANSPORT. RN AWARE OF PLAN. IMM 10/05 IN CHART
--- NOTE | 2020-10-06 09:02 | HO.POSTANES ---
Post Anesthesia Evaluation Post Anesthesia Evaluation Vital Signs: Vital Signs Temp Pulse Resp BP Pulse Ox 10/06/20 07:31 98.8 F 74 17 119/52 L 94 10/06/20 03:51 99.3 F 74 16 119/55 L 94 10/06/20 00:00 16 L 10/05/20 23:16 98.5 F 77 18 116/58 L 97 Anesthesia: Monitored Mental Status: Awake Pain Control: Satisfactory Hydration: Adequate Anesthesia-Related Issues: No Anes. Related Issues
[2020-10-06 09:25] LABS: Hematocrit 27.3 % (42-52); Hemoglobin 8.9 g/dl (14.0-18.0); Mean Corpuscular HGB Conc 32.6 g/dl (31.0-36.0); Mean Corpuscular Volume 98.2 fL (80-98); Mean Platelet Volume 10.2 fL (9.4-12.4); NRBC Pct Auto 0.5 /100WBC (0.0-0.2); Platelet Count 125 X10*3/uL (160-400); Red Blood Count 2.78 X10*6/uL (4.60-5.80); Red Cell Distribution Width 17.2 % (11.0-16.0); White Blood Count 4.3 X10*3/uL (4.8-10.8)
[2020-10-06] MEDS: Amiodarone HCL 200 MG TABLET PO (10:04)
[2020-10-06] MEDS: 0.9 % Sodium Chloride Flush 3 ML SYRINGE IVFLUSH (10:04)
[2020-10-06] MEDS: Atorvastatin Calcium 80 MG TABLET PO (10:05)
[2020-10-06] MEDS: Torsemide 20 MG TABLET PO (10:05)
[2020-10-06] MEDS: Metoprolol Succinate ER 100 MG TAB.ER.24H PO (10:05)
[2020-10-06] MEDS: Insulin Glargine,Hum.rec.anlog 100 UNIT/ML 10 ML VIAL 21 UNIT SUBCUT (10:05)
== END 2020-10-06 11:20 | disposition home health service (06) | DRG 378 ==
LOC: HO.ED 19:16 → HO.EDOVER 21:42 → HO.S3 22:04
PROVIDERS: Internal Medicine Gastroenterology; Admitting Provider Internal Medicine; Emergency Provider Internal Medicine; PCP Internal Medicine; Visit Provider Internal Medicine
PROC: 0DJ08ZZ Inspection of Upper Intestinal Tract, Via Natural or Artificial Opening Endoscopic (ICD-10-PCS; principal; 2020-10-05 10:50)
DX: K92.2 Gastrointestinal hemorrhage, unspecified (principal); I13.0 Hypertensive heart and chronic kidney disease with heart failure and stage 1 through stage 4 chronic kidney disease, or unspecified chronic kidney disease; I50.32 Chronic diastolic (congestive) heart failure; D61.818 Other pancytopenia; D62 Acute posthemorrhagic anemia; I48.91 Unspecified atrial fibrillation; I25.10 Atherosclerotic heart disease of native coronary artery without angina pectoris; Z95.5 Presence of coronary angioplasty implant and graft; K62.1 Rectal polyp; D12.0 Benign neoplasm of cecum; K22.2 Esophageal obstruction; K64.8 Other hemorrhoids; E11.22 Type 2 diabetes mellitus with diabetic chronic kidney disease; E78.5 Hyperlipidemia, unspecified; K62.7 Radiation proctitis; N18.30 Chronic kidney disease, stage 3 unspecified; Z20.822 Contact with and (suspected) exposure to COVID-19; Z95.0 Presence of cardiac pacemaker; Z79.4 Long term (current) use of insulin; Z79.01 Long term (current) use of anticoagulants; Z79.899 Other long term (current) drug therapy
CPT/HCPCS: 36415; 71046; 71100; 80048; 80053; 81001; 82043; 82272; 82607; 82746; 82947; 83036; 83880; 84443; 84484; 85014; 85018; 85025; 85027; 85060; 85610; 85730; 86850; 86900; 86923; 87086; 87635; 88305; 93005; 96374; 99285; J1940; J2370; J3430; P9016

== ENCOUNTER 2020-10-17 12:23 | Outpatient (REF) | payer MEDICARE, SELFPAY ==
[2020-10-17 14:12] LABS: Glucose Urine UA NEG (NEG); Leukocyte Esterase Urine TRACE (NEG); Nitrite Urine NEG (NEG); PH 6.5 (5.0-8.0); Urine Blood 1+ (NEG); Urine Ketones NEG (NEG); Urine Protein 2+ MG/DL (NEG-TRACE)
[2020-10-17 14:16] LABS: Appearance Urine CLEAR; Color Urine YELLOW
[2020-10-17 14:30] LABS: Squamous Epithelial Cell Urine TRACE /LPF; WBC Clumps Urine NOTED
[2020-10-17 14:32] LABS: Basophils Percent Auto 0.7 % (0-2); Eosinophils Absolute Auto 0.2 X10*3/uL (0.0-0.4); Eosinophils Percent Auto 3.7 % (0-4); Hematocrit 29.7 % (42-52); Hemoglobin 9.5 g/dl (14.0-18.0); Imm Gran Abs Auto 0.05 X10*3/uL (0.00-0.03); Imm Gran Pct Auto 1.2 % (0.0-0.4); Lymphocytes Absolute Auto 0.6 X10*3/uL (1.2-4.9); Lymphocytes Percent Auto 14.4 % (20-40); MANUAL DIFF FLAG SCAN; Mean Corpuscular Hemoglobin 33.5 pg (27.0-33.0); Mean Corpuscular Volume 104.6 fL (80-98); Mean Platelet Volume 10.6 fL (9.4-12.4); Monocytes Absolute Auto 0.6 X10*3/uL (0.1-1.2); Monocytes Percent Auto 14.6 % (2-11); Neutrophils Absolute Auto 2.6 X10*3/uL (2.0-8.3); Neutrophils Percent Auto 65.4 % (45-73); Platelet Count 194 X10*3/uL (160-400); Red Blood Count 2.84 X10*6/uL (4.60-5.80); SCAN SMEAR FLAG 1
[2020-10-17 14:41] LABS: Estimated Average Glucose 111 mg/dL; Hemoglobin A1c % 5.5 %
[2020-10-17 14:52] LABS: SLIDE REVIEW VERIFIED
[2020-10-17 15:05] LABS: Alanine Aminotransferase 55 U/L (0-40); Albumin Level 3.2 g/dL (3.5-5.0); Alkaline Phosphatase 184 U/L (39-117); Anion Gap 14 (12-20); Aspartate Amino Transferase 106 U/L (5-37); Bilirubin Total 1.7 mg/dL (0.0-1.0); Blood Urea Nitrogen 26 mg/dL (9-16); Calcium 8.4 mg/dL (8.4-10.2); Carbon Dioxide 27 mmol/L (22-29); Chloride 100 mmol/L (96-108); Estimated Glomerular Filt Rate 24; Glucose Random 167 mg/dL (60-115); Potassium 3.8 mmol/L (3.3-5.1); Sodium 137 mmol/L (135-145); Total Protein 7.3 g/dL (6.5-8.0)
== END 2020-10-17 12:24 | disposition home or self-care (01) ==
LOC: HO.HMGCLDS 12:23
PROVIDERS: PCP Nurse Practitioner Family; Visit Provider Nurse Practitioner Family
DX: R19.5 Other fecal abnormalities (principal); D64.9 Anemia, unspecified; N39.0 Urinary tract infection, site not specified; A41.9 Sepsis, unspecified organism
CPT/HCPCS: 36415; 80053; 81001; 83036; 85025

== ENCOUNTER 2020-10-19 10:52 | Outpatient (REF) | payer MEDICARE, SELFPAY ==
[2020-10-19 17:16] LABS: Alanine Aminotransferase 55 U/L (0-40); Albumin Level 3.1 g/dL (3.5-5.0); Alkaline Phosphatase 193 U/L (39-117); Aspartate Amino Transferase 113 U/L (5-37); Bilirubin Direct 0.9 mg/dL (0.0-0.5); Bilirubin Total 1.7 mg/dL (0.0-1.0); Gamma Glutamyl Transpeptidase 304 U/L (11-51); Total Protein 7.1 g/dL (6.5-8.0)
[2020-10-20 04:37] LABS: HBc Num1 0.27 S/CO (0.00-0.79); Hepatitis A Antibody IgM 0.25 Index (0-0.79); Hepatitis B Core Antibody Nonreactive (Nonreactive); ~HepC Num1 0.14 S/CO (0.00-0.79); ~Hepatitis A Antibody IgM Nonreactive (Nonreactive); ~Hepatitis C Antibody Nonreactive (Nonreactive)
[2020-10-20 04:59] LABS: HBS Num1 1.04 mIU/mL (0-7.99); HBsAGNum1 0.48 S/CO (0.00-0.99); Hepatitis B Surface Antigen Negative (Negative); ~Hepatitis B Surface Antibody NONREACTIVE (Nonreactive)
[2020-10-20 13:57] LABS: Alpha 1 Anti-trypsin 168 mg/dL (83-199); Ceruloplasmin 43 mg/dL (18-36)
[2020-10-20 22:42] LABS: Anti Nuclear Antibody Pattern Mitotic, Centrosome; Anti Nuclear Antibody Screen POSITIVE (NEGATIVE); Prot Elec - Albumin 3.1 g/dL (3.8-4.8); Prot Elec - Alpha1 0.4 g/dL (0.2-0.3); Prot Elec - Alpha2 0.7 g/dL (0.5-0.9); Prot Elec - Beta 1 0.5 g/dL (0.4-0.6); Prot Elec - Beta 2 0.5 g/dL (0.2-0.5); Prot Elec - Gamma 1.8 g/dL (0.8-1.7); Prot Elec - Total Protein 6.9 g/dL (6.1-8.1)
[2020-10-26 01:12] LABS: Liver Kidney Microsomal Ab <=20.0 U (<=20.0)
[2020-10-26 11:07] LABS: Smooth Muscle Antibody <20 U (<20)
== END 2020-10-19 10:53 | disposition home or self-care (01) ==
LOC: HO.LAB 10:52
PROVIDERS: PCP Internal Medicine; Visit Provider Nurse Practitioner Family
DX: N39.0 Urinary tract infection, site not specified (principal); R74.8 Abnormal levels of other serum enzymes
CPT/HCPCS: 36415; 80076; 82103; 82390; 82977; 84155; 84165; 86038; 86039; 86255; 86376; 86704; 86706; 86709; 86803; 87340

== ENCOUNTER 2020-10-20 10:12 | Outpatient (REF) | payer MEDICARE, SELFPAY ==
[2020-10-20 11:45] LABS: Glucose Urine UA NEG (NEG); Leukocyte Esterase Urine NEG (NEG); Nitrite Urine NEG (NEG); PH 7.5 (5.0-8.0); Specific Gravity - Urine 1.015 (1.005-1.025); Urine Blood TRACE (NEG); Urine Ketones NEG (NEG); Urine Protein 1+ MG/DL (NEG-TRACE)
[2020-10-20 11:53] LABS: Appearance Urine CLEAR; Color Urine YELLOW
[2020-10-20 12:08] LABS: Mucus Urine 1+ /LPF; Squamous Epithelial Cell Urine 1+ /LPF
== END 2020-10-20 10:13 | disposition home or self-care (01) ==
LOC: HO.HMGCLNP 10:12
PROVIDERS: Visit Provider Nurse Practitioner Family
DX: N39.0 Urinary tract infection, site not specified (principal)
CPT/HCPCS: 81001; 87086

== ENCOUNTER 2020-11-06 08:55 | Outpatient (REF) | payer MEDICARE, SELFPAY ==
--- NOTE | ~2020-11-06 | US_ITS ---
EXAMINATION: US ABDOMEN COMPLETE CLINICAL INFORMATION: Abdominal pain.. COMPARISON: Previous abdominal ultrasound August 2019 TECHNIQUE: Real-time imaging of the abdominal viscera. FINDINGS: PANCREAS: Normal. 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 This is similar to previous exam. INFERIOR VENA CAVA: Visualized portions are normal. LIVER: There is a 1.5 x 1.2 x 1.7 cm complex cyst in the left lobe of the liver with septations and wall calcification. The liver is normal in size, shape and contour. No other focal liver lesion is seen. There is no intrahepatic biliary duct dilatation seen. GALLBLADDER: There is a large amount of sludge seen in the gallbladder. The gallbladder is upper normal in size. The gallbladder wall is slightly thickened measuring 0.5 cm. There is no gallbladder wall edema or pericholecystic fluid. COMMON BILE DUCT: Normal in caliber measuring 0.6 cm in diameter. RIGHT KIDNEY: There is renal cortical thinning. There is a 5 mm cyst in the upper pole.. No hydronephrosis. No renal calculi. The kidney measures 10 cm in maximum dimension. LEFT KIDNEY: Renal cortical thinning. No hydronephrosis. No renal calculi or focal parenchymal lesions. The kidney measures 12.6 cm in maximum dimension. SPLEEN: The spleen is enlarged. The spleen measures 16.8 cm in maximum dimension. This is increased in size from 13 cm on prior exam. There are 2 splenules. FREE FLUID: None. US/US abdomen complete IMPRESSION: Upper normal-size gallbladder. Large amount of sludge in the gallbladder. Thickened gallbladder wall. If there is clinical suspicion of cholecystitis, HIDA scan would be recommended. Small complex cyst in the left lobe of the liver. Dilated distal abdominal aorta measuring 3.3 x 3.7 cm similar to previous exam. Enlarged spleen increased in size from previous exam.
== END 2020-11-06 08:56 | disposition home or self-care (01) ==
LOC: HO.HMGCX 08:55
PROVIDERS: PCP Nurse Practitioner Family; Visit Provider Nurse Practitioner Family
DX: R74.8 Abnormal levels of other serum enzymes (principal)
CPT/HCPCS: 76700

== ENCOUNTER 2020-11-23 13:05 | Outpatient (REF) | payer MEDICARE, SELFPAY ==
[2020-11-23 13:59] LABS: Glucose Urine UA NEG (NEG); Leukocyte Esterase Urine TRACE (NEG); Nitrite Urine NEG (NEG); PH 6.5 (5.0-8.0); Urine Blood TRACE (NEG); Urine Ketones NEG (NEG); Urine Protein TRACE MG/DL (NEG-TRACE)
[2020-11-23 14:00] LABS: Appearance Urine CLEAR; Color Urine YELLOW
[2020-11-23 14:15] LABS: Bacteria Urine TRACE /LPF; RBC Urine 0-2 /HPF (0); Squamous Epithelial Cell Urine TRACE /LPF
[2020-11-23 14:51] LABS: Prostate Specific Antigen 27.08 ng/mL (<0.05-4.0)
== END 2020-11-23 13:06 | disposition home or self-care (01) ==
LOC: HO.HMGCLDS 13:05
PROVIDERS: PCP Nurse Practitioner Family; Visit Provider Urology
DX: Z12.5 Encounter for screening for malignant neoplasm of prostate (principal); C61 Malignant neoplasm of prostate
CPT/HCPCS: 36415; 81001; 84153

== ENCOUNTER 2020-11-28 12:01 | Outpatient (REF) | payer MEDICARE, SELFPAY ==
[2020-11-28 14:29] LABS: Alanine Aminotransferase 37 U/L (0-40); Albumin Level 3.2 g/dL (3.5-5.0); Alkaline Phosphatase 159 U/L (39-117); Anion Gap 13 (12-20); Aspartate Amino Transferase 97 U/L (5-37); Bilirubin Total 1.8 mg/dL (0.0-1.0); Blood Urea Nitrogen 23 mg/dL (9-16); Calcium 8.2 mg/dL (8.4-10.2); Carbon Dioxide 25 mmol/L (22-29); Chloride 103 mmol/L (96-108); Estimated Glomerular Filt Rate 25; Glucose Random 220 mg/dL (60-115); Potassium 3.7 mmol/L (3.3-5.1); Sodium 137 mmol/L (135-145); Total Protein 7.3 g/dL (6.5-8.0)
== END 2020-11-28 12:02 | disposition home or self-care (01) ==
LOC: HO.HMGCLDS 12:01
PROVIDERS: PCP Nurse Practitioner Family; Visit Provider Nurse Practitioner Family
DX: N39.0 Urinary tract infection, site not specified (principal)
CPT/HCPCS: 36415; 80053; 87086; 87088; 87186

== ENCOUNTER 2020-12-12 09:50 | Outpatient (REF) | payer MEDICARE, SELFPAY ==
[2020-12-12 14:16] LABS: Basophils Percent Auto 0.5 % (0-2); Eosinophils Absolute Auto 0.1 X10*3/uL (0.0-0.4); Eosinophils Percent Auto 1.9 % (0-4); Hematocrit 28.3 % (42-52); Hemoglobin 9.2 g/dl (14.0-18.0); Imm Gran Abs Auto 0.04 X10*3/uL (0.00-0.03); Imm Gran Pct Auto 1.1 % (0.0-0.4); Lymphocytes Absolute Auto 0.5 X10*3/uL (1.2-4.9); MANUAL DIFF FLAG SCAN; Mean Corpuscular HGB Conc 32.5 g/dl (31.0-36.0); Mean Corpuscular Hemoglobin 35.1 pg (27.0-33.0); Mean Platelet Volume 10.5 fL (9.4-12.4); Monocytes Absolute Auto 0.5 X10*3/uL (0.1-1.2); Monocytes Percent Auto 12.5 % (2-11); Neutrophils Absolute Auto 2.7 X10*3/uL (2.0-8.3); Platelet Count 159 X10*3/uL (160-400); Red Blood Count 2.62 X10*6/uL (4.60-5.80); SCAN SMEAR FLAG 1; White Blood Count 3.8 X10*3/uL (4.8-10.8)
[2020-12-12 14:43] LABS: SLIDE REVIEW VERIFIED
[2020-12-12 14:46] LABS: Alanine Aminotransferase 38 U/L (0-40); Albumin Level 3.2 g/dL (3.5-5.0); Alkaline Phosphatase 166 U/L (39-117); Anion Gap 14 (12-20); Aspartate Amino Transferase 120 U/L (5-37); Bilirubin Total 2.6 mg/dL (0.0-1.0); Blood Urea Nitrogen 28 mg/dL (9-16); Calcium 8.5 mg/dL (8.4-10.2); Carbon Dioxide 24 mmol/L (22-29); Chloride 102 mmol/L (96-108); Estimated Glomerular Filt Rate 23; Glucose Random 178 mg/dL (60-115); Potassium 4.1 mmol/L (3.3-5.1); Sodium 136 mmol/L (135-145); Total Protein 7.5 g/dL (6.5-8.0)
[2020-12-12 15:05] LABS: Ferritin 194 ng/mL (20-250); Vitamin D 25-OH Total 38.8 ng/mL (>30)
[2020-12-12 15:15] LABS: Erythrocyte Sedimentation Rate 107 MM/HR (0-15)
[2020-12-12 15:26] LABS: Folate 8.4 ng/mL (> or = 4.0); Vitamin B12 565 pg/mL (200-900)
[2020-12-13 14:52] LABS: Immunoglobulin G 1940 mg/dL (600-1540)
[2020-12-14 19:06] LABS: Alpha 1 Anti-trypsin 198 mg/dL (83-199)
[2020-12-14 22:17] LABS: Gliadin Deamidated IgA Ab >100 Units; Gliadin Deamidated IgG Ab 4 Units
[2020-12-15 12:06] LABS: Soluble Liver Ag Autoantibody <20.1 U (0.0-20.0)
[2020-12-15 14:56] LABS: Transglutaminase Ab IgG 7 U/mL; Transglutaminase IgA 8 U/mL
[2020-12-18 12:31] LABS: Smooth Muscle Antibody 24 U (<20)
== END 2020-12-12 09:51 | disposition home or self-care (01) ==
LOC: HO.HMGCLDS 09:50
PROVIDERS: PCP Nurse Practitioner Family; Referring Provider Nurse Practitioner Family; Visit Provider Internal Medicine Gastroenterology
DX: D64.9 Anemia, unspecified (principal); R19.5 Other fecal abnormalities; R74.8 Abnormal levels of other serum enzymes; R94.5 Abnormal results of liver function studies; E11.65 Type 2 diabetes mellitus with hyperglycemia; I12.9 Hypertensive chronic kidney disease with stage 1 through stage 4 chronic kidney disease, or unspecified chronic kidney disease; E78.5 Hyperlipidemia, unspecified; C61 Malignant neoplasm of prostate; N18.9 Chronic kidney disease, unspecified; I73.9 Peripheral vascular disease, unspecified; Z86.73 Personal history of transient ischemic attack (TIA), and cerebral infarction without residual deficits
CPT/HCPCS: 36415; 80053; 82103; 82306; 82607; 82728; 82746; 82784; 83516; 83520; 85025; 85652; 86140; 86255; 99202

== ENCOUNTER 2021-01-09 09:23 | Outpatient (REF) | payer MEDICARE, SELFPAY ==
[2021-01-09 11:08] LABS: MANUAL DIFF FLAG NO
[2021-01-09 11:12] LABS: Basophils Percent Auto 0.2 % (0-2); Eosinophils Absolute Auto 0.1 X10*3/uL (0.0-0.4); Eosinophils Percent Auto 1.5 % (0-4); Hematocrit 26.1 % (42-52); Hemoglobin 8.7 g/dl (14.0-18.0); Imm Gran Abs Auto 0.02 X10*3/uL (0.00-0.03); Imm Gran Pct Auto 0.5 % (0.0-0.4); Lymphocytes Absolute Auto 0.5 X10*3/uL (1.2-4.9); Lymphocytes Percent Auto 11.9 % (20-40); Mean Corpuscular HGB Conc 33.3 g/dl (31.0-36.0); Mean Corpuscular Hemoglobin 35.1 pg (27.0-33.0); Mean Corpuscular Volume 105.2 fL (80-98); Monocytes Absolute Auto 0.5 X10*3/uL (0.1-1.2); Monocytes Percent Auto 12.7 % (2-11); Neutrophils Percent Auto 73.2 % (45-73); Platelet Count 132 X10*3/uL (160-400); Red Blood Count 2.48 X10*6/uL (4.60-5.80); Red Cell Distribution Width 14.6 % (11.0-16.0)
[2021-01-09 12:03] LABS: Erythrocyte Sedimentation Rate 108 MM/HR (0-15)
[2021-01-09 12:08] LABS: Iron 85 mcg/dL (45-160); Percent Iron Saturation 28 % (15-50); Total Iron Binding Capacity 307 mcg/dL (228-428); Unsaturated Iron Binding 222 ug/dL
[2021-01-09 12:10] LABS: Alanine Aminotransferase 41 U/L (0-40); Alkaline Phosphatase 152 U/L (39-117); Anion Gap 15 (12-20); Aspartate Amino Transferase 125 U/L (5-37); Bilirubin Total 2.4 mg/dL (0.0-1.0); Blood Urea Nitrogen 30 mg/dL (9-16); C Reactive Protein 3.03 mg/dL (< or = 0.50); Calcium 8.4 mg/dL (8.4-10.2); Carbon Dioxide 23 mmol/L (22-29); Chloride 104 mmol/L (96-108); Estimated Glomerular Filt Rate 21; Glucose Random 134 mg/dL (60-115); Potassium 4.1 mmol/L (3.3-5.1); Sodium 138 mmol/L (135-145); Total Protein 7.4 g/dL (6.5-8.0)
[2021-01-09 12:12] LABS: Thyroid Stimulating Hormone 3.67 uIU/mL (0.32-4.0)
[2021-01-09 12:22] LABS: Rheumatoid Factor < 15.0 IU/mL (<15.0)
[2021-01-09 14:02] LABS: Glucose Urine UA NEG (NEG); Leukocyte Esterase Urine NEG (NEG); Nitrite Urine NEG (NEG); Urine Blood TRACE (NEG); Urine Ketones NEG (NEG); Urine Protein TRACE MG/DL (NEG-TRACE)
[2021-01-09 14:06] LABS: Appearance Urine CLEAR; Color Urine YELLOW
[2021-01-09 14:18] LABS: Mucus Urine TRACE /LPF; RBC Urine 0-2 /HPF (0); Squamous Epithelial Cell Urine TRACE /LPF; WBC Urine 0-2 /HPF (0-4)
[2021-01-10 10:01] LABS: Thyroglobulin Antibodies <1 IU/mL (< or = 1); Thyroid Peroxidase Antibodies <1 IU/mL (<9)
[2021-01-10 12:51] LABS: Complement C3 133 mg/dL (82-185)
[2021-01-12 14:27] LABS: Anti DNA DS Antibody 1 IU/mL; Antibody to SS-A Antigen <1.0 NEG AI (<1.0 NEG); Antibody to SS-B Antigen <1.0 NEG AI (<1.0 NEG); SM/Ribonucleoprotein Ab <1.0 NEG AI (<1.0 NEG); Smith Protein <1.0 NEG AI (<1.0 NEG)
[2021-01-12 14:51] LABS: Cyclic Citrullinated Peptide <16 UNITS
[2021-01-12 16:51] LABS: Zinc 43 mcg/dL (60-130)
[2021-01-12 17:42] LABS: Vitamin K1 782 pg/mL (130-1500)
[2021-01-12 20:06] LABS: Vitamin C 0.2 mg/dL (0.2-2.1)
[2021-01-13 17:12] LABS: Vitamin B5 (Pantothenic Acid) 138 ng/mL (<275)
[2021-01-13 18:46] LABS: Nicotinamide 44 ng/mL; Vit B3 - Nicotinic Acid <20 ng/mL
[2021-01-14 20:27] LABS: Vitamin A 13 mcg/dL (38-98)
[2021-01-16 17:12] LABS: Alpha-Tocopherol 10.3 mg/L (5.7-19.9); Beta-Gamma Tocopherol 1.7 mg/L (<=4.3)
== END 2021-01-09 09:24 | disposition home or self-care (01) ==
LOC: HO.LAB 09:23
PROVIDERS: Internal Medicine Gastroenterology; PCP Nurse Practitioner Family; Visit Provider Student in an Organized Health Care Education/Training Program
DX: D64.9 Anemia, unspecified (principal); R19.5 Other fecal abnormalities; R74.8 Abnormal levels of other serum enzymes; R76.8 Other specified abnormal immunological findings in serum; Z79.899 Other long term (current) drug therapy
CPT/HCPCS: 36415; 80053; 81001; 82180; 83540; 84207; 84443; 84446; 84590; 84591; 84597; 84630; 85025; 85652; 86140; 86160; 86200; 86225; 86235; 86376; 86431; 86800; 99202

== ENCOUNTER 2021-01-11 12:45 | Day surgery (SDC) | payer MEDICARE, SELFPAY ==
[2021-01-08 10:28] VITALS: BMI 28.3
--- NOTE | 2021-01-08 13:20 | HO.ANESPROP2 ---
Documented by User: Kait Mendoza 01/08/21 15:11 HPI - Anesthesia Eval Consult details Narrative: 80yo M for Upper Endoscopy s/p Upper Endo and [place] 09/2020 with MAC GIB requiring 5+ units of PRBC Eliquis for afib Pacer in situ PMFSH Active Problems Active Problems: All Active Problems (Updated 12/12/20 @ 11:59 by Bhakti Ballard NP) Rectal bleed (Acute) Sepsis (Acute) Fall (Acute) Severe anemia (Acute) Occult GI bleeding (Acute) Acquired pancytopenia (Acute) UTI (urinary tract infection) (Acute) Elevated liver enzymes (Acute) Elevated liver enzymes (Acute) DIRK positive (Acute) Liver cyst (Acute) UTI (urinary tract infection) (Acute) Herpes zoster (Acute) Hypercholesterolemia (Acute) Atrial fibrillation (Acute) Obesity (BMI 30-39.9) (Acute) Chronic kidney disease (CKD) stage G4/A1, severely decreased glomerular filtration rate (GFR) between 15-29 mL/min/1.73 square meter and albuminuria creatinine ratio less than 30 mg/g (Acute) Hypertension (Acute) Type 2 diabetes mellitus with hyperglycemia (Acute) Insomnia (Acute) Congestive heart failure (Acute) Past Medical History Medical History AAA (abdominal aortic aneurysm) Abdominal aortic aneurysm Atrial fibrillation Chronic kidney disease (CKD) stage 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, severely decreased glomerular filtration rate (GFR) between 15-29 mL/min/1.73 square meter and albuminuria creatinine ratio less than 30 mg/g Congestive heart failure Coronary artery disease History of CVA (cerebrovascular accident) History of prostate cancer Hypercholesterolemia Hypertension Insomnia Legally blind in right eye, as defined in [place] Obesity (BMI 30-39.9) Peripheral vascular disease Renal artery stenosis Retinal detachment Sick sinus syndrome Type 2 diabetes mellitus with hyperglycemia Family History Family History Father Heart problem Diabetes Prostate cancer Mother Acute leukemia Surgical History Surgical History H/O colonoscopy H/O esophagogastroduodenoscopy History of cataract surgery History of pacemaker History of prostatectomy History of thumb surgery History of tonsillectomy Hx of cystoscopy Renal calculi Social History Social History Household Members: Spouse Housing: Condominium Do you presently have visiting nurse or other home services: Yes Patient Tobacco Use Status: Former Tobacco user Quit Date: 2004 Cigarettes Per Day: 15 Years Smoked: Cannot remember e-Cigarette/Vaping Use: Never Used Are you DNR?: No Advance Directives: No Advance Directives Information Provided: No Advance Directives on File: No service: Yes Current occupational status: retired [employer] Allergies Allergy/AdvReac Type Severity Reaction Status Date / Time No Known Allergies Allergy Verified 01/11/21 13:12 [No Known Allergies*] Home Medications Medication Instructions Recorded Confirmed Last Taken Type amiodarone 200 mg tablet 200 mg PO DAILY 05/29/20 01/09/21 Unknown History cetirizine 10 mg capsule 5 mg PO QPM PRN cap 05/29/20 01/09/21 Unknown History linagliptin 5 mg tablet 5 mg PO DAILY 05/29/20 01/09/21 Unknown History omega 3-mtm-xqz-fish oil 1,200 mg 1 cap PO DAILY cap 05/29/20 01/09/21 Unknown History (144 mg-216 mg) capsule rosuvastatin 20 mg tablet 20 mg PO QPM 05/29/20 01/09/21 Unknown History apixaban 5 mg tablet 2.5 mg PO BID tab 10/03/20 01/09/21 Unknown History metoprolol succinate 100 mg 100 mg PO QAM 10/03/20 01/09/21 Unknown History capsule sprinkle, ext. release 24 hr torsemide 20 mg tablet 20 mg PO BID 10/03/20 01/09/21 Unknown History polyethylene glycol 3350 17 17 g PO DAILY 12/12/20 01/09/21 Unknown History gram/dose oral powder insulin degludec [Tresiba 30 unit SUBCUT DAILY@1700 01/08/21 01/09/21 Unknown History FlexTouch U-100] Exam Exam Date and Time: January 08, 2021 1320 Height,Weight and Vital Signs: Height 5 ft 7 in Weight 82.1 kg Pertinent Lab Results Pertinent Lab Results: Laboratory Tests 12/12/20 12/12/20 12:08 12:08 WBC 3.8 L Hgb 9.2 L Hct 28.3 L Plt Count 159 L Sodium 136 Potassium 4.1 Chloride 102 Carbon Dioxide 24 BUN 28 H Creatinine 2.72 H Narrative Narrative: US abdomen complete 10/2020 IMPRESSION: Upper normal-size gallbladder. Large amount of sludge in the gallbladder. Thickened gallbladder wall. If there is clinical suspicion of cholecystitis, HIDA scan would be recommended. Small complex cyst in the left lobe of the liver. Dilated distal abdominal aorta measuring 3.3 x 3.7 cm similar to previous exam. Enlarged spleen increased in size from previous exam. EKG 09/2020 Vent. Rate : 089 BPM Atrial Rate : 089 BPM P-R Int : 212 ms QRS Dur : 098 ms QT Int : 444 ms P-R-T Axes : 104 -02 127 degrees QTc Int : 540 ms Sinus rhythm with 1st degree A-V block Left ventricular hypertrophy with repolarization abnormality ST depression in anterior and lateral leads- LVH vs ischemia; Prolonged QT Abnormal ECG When compared with ECG of 03-OCT-2020 20:56, No significant change was found Pacer Interr 10/2020 AAI <-> DDD, 60 Battery OK ECHO 09/2020 (per cardiac note) LV size is normal. LV wall thickness is mildly increased. The LV systolic function is normal. LVEF 55-60%. No definite R WMA. LA is severely dilated. Aortic valve appears moderately to severely thickened. AV leaflet opening is mildly decreased. There is partial fusion of the commisure between the right and left coronary cusps. There is mod AR. Mild . RV is normal in size. RV systolic function appears preserved. A pacer/ICD wire is seen in the RV RA is dilated. RA pacer lead is present. Documented by User: Caio Shields MD 01/11/21 13:23 [facility] Past Medical History Medical History AAA (abdominal aortic aneurysm) Abdominal aortic aneurysm Atrial fibrillation Chronic kidney disease (CKD) stage G4/A1, severely decreased glomerular filtration rate (GFR) between 15-29 mL/min/1.73 square meter and albuminuria creatinine ratio less than 30 mg/g Congestive heart failure Coronary artery disease History of CVA (cerebrovascular accident) History of prostate cancer Hypercholesterolemia Hypertension Insomnia Legally blind in right eye, as defined in [place] Obesity (BMI 30-39.9) Peripheral vascular disease Renal artery stenosis Retinal detachment Sick sinus syndrome Type 2 diabetes mellitus with hyperglycemia Family History Family History Father Heart problem Diabetes Prostate cancer Mother Acute leukemia Surgical History Surgical History H/O colonoscopy H/O esophagogastroduodenoscopy History of cataract surgery History of pacemaker History of prostatectomy History of thumb surgery History of tonsillectomy Hx of cystoscopy Renal calculi Social History Social History Household Members: Spouse Housing: [facility] Do you presently have visiting nurse or other home services: Yes Patient Tobacco Use Status: Former Tobacco user Quit Date: 2004 Cigarettes Per Day: 15 Years Smoked: Cannot remember e-Cigarette/Vaping Use: Never Used Are you DNR?: No Advance Directives: No Advance Directives Information Provided: No Advance Directives on File: No service: Yes Current occupational status: retired Meds Allergies Allergy/AdvReac Type Severity Reaction Status Date / Time No Known Allergies Allergy Verified 01/11/21 13:12 [No Known Allergies*] Home Medications Medication Instructions Recorded Confirmed Last Taken Type amiodarone 200 mg tablet 200 mg PO DAILY 05/29/20 01/09/21 Unknown History cetirizine 10 mg capsule 5 mg PO QPM PRN cap 05/29/20 01/09/21 Unknown History linagliptin 5 mg tablet 5 mg PO DAILY 05/29/20 01/09/21 Unknown History omega 3-yyn-rjc-fish oil 1,200 mg 1 cap PO DAILY cap 05/29/20 01/09/21 Unknown History (144 mg-216 mg) capsule rosuvastatin 20 mg tablet 20 mg PO QPM 05/29/20 01/09/21 Unknown History apixaban 5 mg tablet 2.5 mg PO BID tab 10/03/20 01/09/21 Unknown History metoprolol succinate 100 mg 100 mg PO QAM 10/03/20 01/09/21 Unknown History capsule sprinkle, ext. release 24 hr torsemide 20 mg tablet 20 mg PO BID 10/03/20 01/09/21 Unknown History polyethylene glycol 3350 17 17 g PO DAILY 12/12/20 01/09/21 Unknown History gram/dose oral powder insulin degludec [Tresiba 30 unit SUBCUT DAILY@1700 01/08/21 01/09/21 Unknown History FlexTouch U-100] Exam Airway Mallampati Class: II TM Dist: >3cm Neck ROM: Full Loose/Missing/Broken Teeth: No Heart: RRRNL Assessment and Plan Assessment Anesthesia Assessment: Anesthesia Plan Discussed and Chart Reviewed Final Anesthetic Review NPO: Yes ASA Class: IV Final Preanesthetic Review: No Changes in Pt Med Stat, Meds/Allgs Chart Reviewed, Consent Obtained/Reviewed and Anes Risks/Benef Reviewed Patient Risk: High Procedure Risk: Low Anesthetic Plan Anesthetic Plan: MAC: Disposition: Standard PACU
[2021-01-11 13:23] VITALS: BP 130/49; PULSE 60; RESP 18; TEMP 36.2; O2SAT 99
[2021-01-11] MEDS: 0.9 % Sodium Chloride 500 ML 20 ML IVCONT (13:43)
--- NOTE | 2021-01-11 13:52 | P.HPSUR_ITS ---
Pre-Procedural Eval Section A Date of Service: 01/11/21 Section B Chief Complaint: Severe anemia,Elevated Liver Enzymes,GI Bleed Details of Present Illness: concern for celiac with pos celiac Ab tests Relevant Family History (Specify if Yes): No Relevant Social History: None Present Medications: see Short Stay Collaborative assessment Medical History: Significant History (AAA (abdominal aortic aneurysm) Abdominal aortic aneurysm Atrial fibrillation Chronic kidney disease (CKD) stage G4/A1, severely decreased glomerular filtration rate (GFR) between 15-29 mL/min/1.73 square meter and albuminuria creatinine ratio less than 30 mg/g Congestive heart failure Coronary shirley) History of Previous Operations: Relevant previous surgery/procedure and date(s) (H/O colonoscopy H/O esophagogastroduodenoscopy History of cataract surgery History of pacemaker History of prostatectomy History of thumb surgery History of tonsillectomy Hx of cystoscopy Renal calculi) Allergies: Allergies Allergy/AdvReac Type Severity Reaction Status Date / Time No Known Allergies Allergy Verified 01/11/21 13:12 [No Known Allergies*] Review of Systems Sugical H&P ROS: Negative: Constitution, Cardiovascular, Respiratory, Zachariah rological, Psychiatric, Hem-Onc, Allergic/Immunologic, Gastrointestinal, Genitourinary, Musculoskeletal, Integumentary, Endocrine and Eyes/Ears/Nose/Throat Exam Surgical H&P Exam: Normal: HEENT, Normal: Heart, Normal: Lungs, Normal: Extremities, Normal: Abdomen, Normal: Skin and Normal: Neurological Plan Diagnosis/Plan: Unchanged I have reviewed the history and physical and performed a pertinent physical examination on my patient. No changes have occurred unless specified.
--- NOTE | 2021-01-11 13:54 | PM.OP ---
Brief Operative Note Date of Service: 01/11/21 Pre-op diagnosis: anemia, pos celiac Ab, EGD for bx to confirm dx Post-op diagnosis: same Procedure: see op note Surgeon: Xuan Sandhu MD Anesthesia: MAC Was an Pourer Buggy Ladle used for this Procedure?: No Estimated blood loss (mL): 0 Condition: stable Disposition: PACU
--- NOTE | 2021-01-11 13:55 | W.PM.OPN ---
Operative Note Operative Note Date of Service: 01/11/21 Narrative: Procedure Description: EGD FLEXIBLE TRANSORAL UPPER GASTROINTESTINAL ENDOSCOPY UPPER ENDOSCOPY Consent: Indications for the procedure and potential complications of bleeding, perforation, reaction to medications and missed diagnosis were discussed with the patient and informed consent was obtained. Instrument: Olympus GIF H 190 J mid size upper endoscope Monitoring: Vital signs and clinical assessment, continuous EKG monitoring, Pulse oximetry, Carbon Dioxide monitoring and blood pressure monitoring were done throughout the procedure. Procedure: The patient was placed in the left lateral decubitis position and pre-procedure medications were administered and a bite block was placed. The endoscope was inserted into the mouth and advanced under direct vision to the third part of duodenum. A careful inspection was made as the upper endoscope was withdrawn including a retroflexed examination of the proximal stomach; Findings and interventions are described below. Findings: Larynx:normal Esophagus: GE junction at 40 cm, diaphragm hiatus at 40 cm, small flat varices without any high risk stigmata noted, mild esophagitis and non obstructive schatzki ring Stomach: Patchy gastric erythema at the antrum consistent with mild gastric antral vascular ectasia (GAVE). Biopsies were obtained. Grade 2 flap valve on retroflexed examination of the cardia. Duodenum: There appear to be some mucosal atrophy, bx taken from bulb and second part of duodenum Intervention: Biopsies as noted above Impression/Findings: non obstructive schatzki ring esophageal varices esophagitis GAVE PLAN: await bx results, if neg then MRI of liver, possible liver bx
[2021-01-11 14:06] LABS: Glucose, Whole Blood 112 mg/dL (60-115)
[2021-01-11 14:27] VITALS: BP 91/40; PULSE 60; RESP 16; TEMP 36.1; O2SAT 100
[2021-01-11 14:44] VITALS: BP 104/44; PULSE 60; RESP 16; O2SAT 99
[2021-01-11 15:00] VITALS: BP 129/57; PULSE 60; RESP 16; TEMP 36.1; O2SAT 100
[2021-01-11 15:15] VITALS: BP 137/49; PULSE 60; RESP 16; O2SAT 100
[2021-01-11 15:30] VITALS: BP 130/68; PULSE 60; RESP 16; TEMP 36.1; O2SAT 100
== END 2021-01-11 16:00 | disposition home or self-care (01) ==
PROVIDERS: PCP Nurse Practitioner Family; Visit Provider Internal Medicine Gastroenterology
PROC: 0DJ08ZZ Inspection of Upper Intestinal Tract, Via Natural or Artificial Opening Endoscopic (ICD-10-PCS; CPT 43235; principal; 2021-01-11 14:10)
DX: D64.9 Anemia, unspecified (principal); R74.8 Abnormal levels of other serum enzymes; R19.5 Other fecal abnormalities; I85.00 Esophageal varices without bleeding; K44.9 Diaphragmatic hernia without obstruction or gangrene; K22.2 Esophageal obstruction; K20.80 Other esophagitis without bleeding; R76.8 Other specified abnormal immunological findings in serum; K31.819 Angiodysplasia of stomach and duodenum without bleeding; I71.4 Abdominal aortic aneurysm, without rupture; I48.91 Unspecified atrial fibrillation; I49.5 Sick sinus syndrome; E11.65 Type 2 diabetes mellitus with hyperglycemia; E11.22 Type 2 diabetes mellitus with diabetic chronic kidney disease; I13.0 Hypertensive heart and chronic kidney disease with heart failure and stage 1 through stage 4 chronic kidney disease, or unspecified chronic kidney disease; N18.4 Chronic kidney disease, stage 4 (severe); Z87.891 Personal history of nicotine dependence; Z79.4 Long term (current) use of insulin; Z79.01 Long term (current) use of anticoagulants; Z79.899 Other long term (current) drug therapy; Z86.73 Personal history of transient ischemic attack (TIA), and cerebral infarction without residual deficits; Z85.46 Personal history of malignant neoplasm of prostate; Z85.89 Personal history of malignant neoplasm of other organs and systems; Z95.0 Presence of cardiac pacemaker
CPT/HCPCS: 43239; 82947; 88305; 88342; J2370

== ENCOUNTER → 2021-01-19 08:27 | Outpatient (BNVA) | payer MEDICARE, SELFPAY | PROVIDERS: PCP Nurse Practitioner Family; Visit Provider Internal Medicine Gastroenterology | DX: R74.8 Abnormal levels of other serum enzymes (principal); R19.5 Other fecal abnormalities; D61.818 Other pancytopenia | CPT/HCPCS: Q3014 ==

== ENCOUNTER → 2021-01-25 08:32 | Outpatient (BNVA) | payer MEDICARE, SELFPAY | PROVIDERS: PCP Internal Medicine Endocrinology, Diabetes & Metabolism; Visit Provider Student in an Organized Health Care Education/Training Program | DX: R76.8 Other specified abnormal immunological findings in serum (principal) | CPT/HCPCS: 99212 ==

== ENCOUNTER 2021-01-29 09:28 | Emergency (ER) | payer MEDICARE, SELFPAY ==
--- NOTE | ~2021-01-29 | XR_ITS ---
EXAMINATION: XR CHEST CLINICAL INFORMATION: Shortness of breath. COMPARISON: 10/03/2020 chest radiographs. TECHNIQUE: Frontal view of the chest was obtained. FINDINGS: The lungs are clear. The heart and mediastinal structures are unremarkable. A left-sided dual-lead pacemaker seen with leads in the right atrium and right ventricle. XR/XR chest 1V IMPRESSION: No acute cardiopulmonary process.
[2021-01-29 09:36] VITALS: BP 141/65; PULSE 65; RESP 18; TEMP 36.9; O2SAT 97; BMI 27.4
[2021-01-29 10:22] LABS: Hematocrit 26.6 % (42-52); Hemoglobin 8.8 g/dl (14.0-18.0); Mean Corpuscular HGB Conc 33.1 g/dl (31.0-36.0); Mean Corpuscular Hemoglobin 35.1 pg (27.0-33.0); Mean Platelet Volume 9.4 fL (9.4-12.4); Platelet Count 131 X10*3/uL (160-400); Red Blood Count 2.51 X10*6/uL (4.60-5.80); Red Cell Distribution Width 14.9 % (11.0-16.0); White Blood Count 4.8 X10*3/uL (4.8-10.8)
[2021-01-29 11:01] LABS: Anion Gap 14 (12-20); Blood Urea Nitrogen 39 mg/dL (9-16); Calcium 8.5 mg/dL (8.4-10.2); Carbon Dioxide 23 mmol/L (22-29); Chloride 104 mmol/L (96-108); Creatinine Clr Calc Pharmacy 16.7; Estimated Glomerular Filt Rate 18; Glucose Random 169 mg/dL (60-115); Potassium 4.1 mmol/L (3.3-5.1); Sodium 137 mmol/L (135-145)
[2021-01-29 11:03] LABS: B Type Natriuretic Peptide 573 pg/mL (<100); Troponin-I High Sensitivity 9.6 ng/L (<3.5-35.0)
[2021-01-29 11:29] VITALS: PULSE 60
--- NOTE | 2021-01-29 11:39 | ED_ITS ---
HPI - SOB/Dyspnea General Chief Complaint: Dyspnea Stated Complaint: difficulty breathing Time Seen by Provider: 01/29/21 11:20 Source: patient and family Mode of arrival: ambulatory History of Present Illness HPI Narrative: 80-year-old male w/ past medical history of AAA, AFib on Eliquis, CKD, CHF, CAD, CVA, prostate CA, HLD, HTN, insomnia, obesity, PVD, renal artery stenosis, SSS, DM, presenting to the ED complaining of acute onset shortness of breath waking him from sleep around 3:00 a.m. Admits symptoms improved at present, was seen at [facility] and instructed to go to ED for further eval. Reports when symptoms began were exacerbated by anxiety/nerves. Denies associated CP, cough, LE edema, fever, chills, nausea/vomiting, abdominal pain, recent travel MD elicited complaint: shortness of breath Related Data Home Medications Medication Instructions Recorded Confirmed amiodarone 200 mg tablet 200 mg PO DAILY 05/29/20 01/29/21 cetirizine 10 mg capsule 5 mg PO QPM PRN cap 05/29/20 01/29/21 linagliptin 5 mg tablet 5 mg PO DAILY 05/29/20 01/29/21 omega 6-pzs-frt-fish oil 1,200 mg 1 cap PO DAILY cap 05/29/20 01/29/21 (144 mg-216 mg) capsule rosuvastatin 20 mg tablet 20 mg PO QPM 05/29/20 01/29/21 apixaban 5 mg tablet 2.5 mg PO BID tab 10/03/20 01/29/21 metoprolol succinate 100 mg 100 mg PO QAM 10/03/20 01/29/21 capsule sprinkle, ext. release 24 hr torsemide 20 mg tablet 20 mg PO BID 10/03/20 01/29/21 polyethylene glycol 3350 17 17 g PO DAILY 12/12/20 01/29/21 gram/dose oral powder insulin degludec [Tresiba 30 unit SUBCUT DAILY@1700 01/08/21 01/29/21 FlexTouch U-100] Previous Rx's Medication Instructions Recorded zolpidem 5 mg tablet 5 mg PO BEDTIME PRN #90 tab 05/29/20 hydrocortisone 2.5 % topical cream 1 ea MD BID-QID PRN #30 g 08/02/20 with perineal applicator omeprazole 20 mg capsule,delayed 20 mg PO DAILY #90 cap 11/13/20 release pen needle, diabetic 31 gauge x #100 ea 11/28/2009/26 vitamin A palmitate 10,000 unit 10,000 unit PO DAILY 28 Days #28 01/25/21 capsule cap zinc 50 mg tablet 50 mg PO BID #60 tab 01/25/21 blood sugar diagnostic #3 box 01/26/21 Allergies Allergy/AdvReac Type Severity Reaction Status Date / Time No Known Allergies Allergy Verified 01/29/21 09:08 [No Known Allergies*] Review of Systems Review of Systems: Constitutional: No Fever, No Chills, No Fatigue, No Malaise Cardiovascular: No Chest Pain, + SOB, No Dyspnea on Exertion, No Orthopnea, No Edema Respiratory: No Cough, No Dyspnea Gastrointestinal: No Nausea, No Vomiting, No Diarrhea, No Constipation, No A bdominal pain Genitourinary: No Dysuria, No Urinary Frequency, No Hematuria Musculoskeletal: No joint pain, No Myalgias Skin: No Skin Lesions, No rash Neuro: No Weakness, No Numbness, No Paresthesias, No Headache Yes all other systems are reviewed and are negative [facility] Past Medical History Attestation statement: The following information was validated with the patient. Medical History AAA (abdominal aortic aneurysm) Abdominal aortic aneurysm Atrial fibrillation Chronic kidney disease (CKD) stage G4/A1, severely decreased glomerular filtration rate (GFR) between 15-29 mL/min/1.73 square meter and albuminuria creatinine ratio less than 30 mg/g Congestive heart failure Coronary artery disease History of CVA (cerebrovascular accident) History of prostate cancer Hypercholesterolemia Hypertension Insomnia Legally blind in right eye, as defined in [place] Obesity (BMI 30-39.9) Peripheral vascular disease Renal artery stenosis Retinal detachment Sick sinus syndrome Type 2 diabetes mellitus with hyperglycemia Surgical History H/O colonoscopy H/O esophagogastroduodenoscopy History of cataract surgery History of pacemaker History of prostatectomy History of thumb surgery History of tonsillectomy Hx of cystoscopy Renal calculi Family History Family History Father Heart problem Diabetes Prostate cancer Mother Acute leukemia Social History Social History Household Members: Spouse Housing: Condominium Do you presently have visiting nurse or other home services: Yes Patient Tobacco Use Status: Former Tobacco user Quit Date: 2004 Cigarettes Per Day: 15 Years Smoked: Cannot remember e-Cigarette/Vaping Use: Never Used Advance Directives: Yes Advance Directives on File: Yes Advance Directives Date on File: 10/06/20 service: Yes Current occupational status: retired Physical Exam Vital Signs: Vital Signs: Last Vital Signs Temp 98.4 F 01/29/21 09:36 Pulse 60 01/29/21 13:55 Resp 18 01/29/21 13:55 BP 127/47 L 01/29/21 13:55 Pulse Ox 99 01/29/21 13:55 Body Mass Index 27.4 Const: General: cooperative, healthy appearing and no acute distress Orientation/consciousness: patient oriented x3 Limitations: no limitations HENMT: Head: Yes normal to inspection Ears: hearing grossly normal bilaterally General nose exam: Normal external nose present Face and sinus: Yes normal facial exam Eyes: General: appearance normal, both eyes and all related structures EOM: EOMs intact bilaterally Neck: Neck: Yes normal visual inspection and Yes no meningeal signs Resp: Effort & Inspection: normal respiratory effort Auscultation: clear to auscultation bilaterally, no rales, no rhonchi and no wheezes Cardio: Rate: regular rate Heart sounds: S1 normal heart sound present and S2 normal heart sound present GI: Inspection: Yes normal to inspection Palpation (GI): Soft to palpation, nontender, no guarding and not rigid Skin: Rashes: no rashes Wounds: no wounds Neuro: General: patient oriented x3, tone normal and no meningeal signs Extrem: Other: +1 bilateral lower extremity pitting edema General: Yes normal to inspection Course Course Course Narrative: -no leukocytosis. H&H at patient's baseline, mild BHUMIKA with a creatinine 3.3, chronically elevated but slightly worse than priors -bilirubin/AST chronically elevated. BNP 573 chronically elevated, initial troponin 9.6 >will obtain 3 hour repeat XR chest 1V IMPRESSION: No acute cardiopulmonary process. -1453--repeat troponin without 50% rise, GA unlikely. Repeat BMP with creatinine 3.1 after 500 cc IVF >> results discussed with patient and family at bedside including worrisome signs and symptoms and strict return precautions, verbalized understanding feel safe for discharge home MDM - SOB/Dyspnea MDM Narrative Medical decision making narrative: 80-year-old male w/ past medical history of AAA, AFib on Eliquis, CKD, CHF, CAD, CVA, prostate CA, HLD, HTN, insomnia, obesity, PVD, renal artery stenosis, SSS, DM, presenting to the ED complaining of acute onset shortness of breath waking him from sleep around 3:00 a.m. On exam vital signs stable, NAD, nontoxic, asymptomatic at present, lungs CTA, 1+ bilateral lower extremity pitting edema. Concern for ACS vs CHF vs sleep apnea vs ?Infectious etiology. Rule out metabolic derangements. Symptoms atypical for PE Plan: EKG, labs, CXR, troponin x2, reassessed Medical Records Attestation: I reviewed the patient's medical records. Lab Data Attestation: I reviewed the patient's lab results. Result diagrams: 01/29/21 10:16 01/29/21 14:01 Labs: Lab Results 01/29/21 01/29/21 01/29/21 Range/Units 10:16 10:16 10:16 WBC 4.8 (4.8-10.8) X10*3/uL RBC 2.51 L (4.60-5.80) X10*6/uL Hgb 8.8 L (14.0-18.0) g/dl Hct 26.6 L (42-52) % MCV 106.0 H (80-98) fL MCH 35.1 H (27.0-33.0) pg MCHC 33.1 (31.0-36.0) g/dl RDW 14.9 (11.0-16.0) % Plt Count 131 L (160-400) X10*3/uL MPV 9.4 (9.4-12.4) fL Absolute Nucleated RBC 0.000 (0.0-0.012) X10*3/uL Nucleated RBC % (auto) 0.0 (0.0-0.2) /100WBC Sodium 137 (135-145) mmol/L Potassium 4.1 (3.3-5.1) mmol/L Chloride 104 (96-108) mmol/L Carbon Dioxide 23 (22-29) mmol/L Anion Gap 14 (12-20) BUN 39 H (9-16) mg/dL Creatinine 3.31 H (0.5-1.4) mg/dL Estim Creat Clear Calc 16.7 Estimated GFR 18 Random Glucose 169 H (60-115) mg/dL Calcium 8.5 (8.4-10.2) mg/dL Magnesium 2.6 (1.6-2.6) mg/dL Total Bilirubin 2.5 H (0.0-1.0) mg/dL Direct Bilirubin 1.5 H (0.0-0.5) mg/dL AST 93 H (5-37) U/L ALT 38 (0-40) U/L Alkaline Phosphatase 148 H (39-117) U/L Troponin I High Sens 9.6 (<3.5-35.0) ng/L B-Natriuretic Peptide 573 H (<100) pg/mL Total Protein 7.7 (6.5-8.0) g/dL Albumin 3.2 L (3.5-5.0) g/dL 01/29/21 01/29/21 Range/Units 14:01 14:01 WBC (4.8-10.8) X10*3/uL RBC (4.60-5.80) X10*6/uL Hgb (14.0-18.0) g/dl Hct (42-52) % MCV (80-98) fL MCH (27.0-33.0) pg MCHC (31.0-36.0) g/dl RDW (11.0-16.0) % Plt Count (160-400) X10*3/uL MPV (9.4-12.4) fL Absolute Nucleated RBC (0.0-0.012) X10*3/uL Nucleated RBC % (auto) (0.0-0.2) /100WBC Sodium 136 (135-145) mmol/L Potassium 3.8 (3.3-5.1) mmol/L Chloride 107 (96-108) mmol/L Carbon Dioxide 18 L (22-29) mmol/L Anion Gap 15 (12-20) BUN 38 H (9-16) mg/dL Creatinine 3.11 H (0.5-1.4) mg/dL Estim Creat Clear Calc 17.8 Estimated GFR 20 Random Glucose 154 H (60-115) mg/dL Calcium 8.2 L (8.4-10.2) mg/dL Magnesium (1.6-2.6) mg/dL Total Bilirubin (0.0-1.0) mg/dL Direct Bilirubin (0.0-0.5) mg/dL AST (5-37) U/L ALT (0-40) U/L Alkaline Phosphatase (39-117) U/L Troponin I High Sens 10.1 (<3.5-35.0) ng/L B-Natriuretic Peptide (<100) pg/mL Total Protein (6.5-8.0) g/dL Albumin (3.5-5.0) g/dL ECG Data Attestation: I personally reviewed and interpreted this ECG as follows: ECG interpretation date: 01/29/21 ECG interpretation time: 11:55 Prior ECG tracings: available for review Interpretation: EKG atrial paced with prolonged AV conduction, unchanged from prior of 10/04/2020. QTC 542 Discharge Plan Discharge Clinical Impression: Dyspnea Patient Disposition: Home, Self-Care Instructions: Shortness of Breath (ED) Additional Instructions: Your chest x-ray was unremarkable Your blood work was otherwise reassuring, your kidney function is higher than normal but close to your baseline, your creatinine is 3.1, you need to follow-up with your auto radiator specialist, I will refer you to our auto radiator specialist as well, Dr. Lowe If her symptoms persist or worsen, become constant, developed chest pain, swelling in her legs, fever, chills, cough please return to the ED immediately Please call your primary care doctor for follow-up Prescriptions: No Action hydrocortisone [Proctosol HC] 2.5 % cream with perineal applicator 1 ea MD BID-QID PRN (Reason: hemorrhoids) Qty: 30 RF: 5 omeprazole 20 mg capsule,delayed release(DR/EC) 20 mg PO DAILY Qty: 90 RF: 3 vitamin A palmitate 10,000 unit capsule 10,000 unit PO DAILY 28 Days Qty: 28 RF: 0 zinc 50 mg tablet 50 mg PO BID Qty: 60 RF: 0 (DME) OneTouch Verio test strips Strip See Rx Instructions .ROUTE .MEDSUPPLY Qty: 3 RF: 3 Tresiba FlexTouch U-100 100 unit/mL (3 mL) insulin pen 30 unit subcut DAILY@1700 RF: 0 omega 1-mrl-lvm-fish oil [Fish Oil] 1,200 (144-216) mg capsule 1 cap PO DAILY RF: 0 Zyrtec 10 mg capsule 5 mg PO QPM PRN (Reason: Allergy Symptoms) RF: 0 rosuvastatin 20 mg tablet 20 mg PO QPM RF: 0 amiodarone 200 mg tablet 200 mg PO DAILY RF: 0 Tradjenta 5 mg tablet 5 mg PO DAILY RF: 0 zolpidem [Ambien] 5 mg tablet 5 mg PO BEDTIME PRN (Reason: sleep) Qty: 90 RF: 0 Eliquis 5 mg tablet 2.5 mg PO BID RF: 0 Hold Instructions: Resume on 10/13/20. Hold for 1 week, start taking again on October 13 metoprolol succinate 100 mg capsule,sprinkle,ER 24hr 100 mg PO QAM RF: 0 torsemide 20 mg tablet 20 mg PO BID RF: 0 (DME) pen needle, diabetic [BD Ultra-Fine Mini Pen Needle] 31 gauge x 3/16 needle See Rx Instructions .ROUTE .MEDSUPPLY Qty: 100 RF: 0 polyethylene glycol 3350 [Miralax] 17 gram/dose powder 17 g PO DAILY RF: 0 Referrals: Jewel Mosquera FNP-GUSTABO [Primary Care Provider] - 2 days Herve Lowe MD [Physician] - 5 days
--- NOTE | 2021-01-29 11:42 | ECG_ITS ---
Test Reason : DIFF BREATHING Blood Pressure : / mmHG Vent. Rate : 060 BPM Atrial Rate : 258 BPM P-R Int : 294 ms QRS Dur : 112 ms QT Int : 542 ms P-R-T Axes : 000 192 042 degrees QTc Int : 542 ms Atrial-paced rhythm with prolonged AV conduction Suspect limb lead reversal, interpretation assumes no reversal Nonspecific ST and T wave abnormality Prolonged QT Abnormal ECG When compared with ECG of 04-OCT-2020 05:52, Atrial-paced rhythm has replaced Normal sinus rhythm Repeat EKG with proper limb lead placement Referred By: Luanne Melvin Electronically Signed By:LISS MCLEOD MD
[2021-01-29 12:08] LABS: Alanine Aminotransferase 38 U/L (0-40); Albumin Level 3.2 g/dL (3.5-5.0); Alkaline Phosphatase 148 U/L (39-117); Aspartate Amino Transferase 93 U/L (5-37); Bilirubin Direct 1.5 mg/dL (0.0-0.5); Bilirubin Total 2.5 mg/dL (0.0-1.0); Magnesium 2.6 mg/dL (1.6-2.6); Total Protein 7.7 g/dL (6.5-8.0)
[2021-01-29] MEDS: 0.9 % Sodium Chloride 500 ML 999 ML IV (12:11)
[2021-01-29 13:55] VITALS: BP 127/47; PULSE 60; RESP 18; O2SAT 99
[2021-01-29 14:34] LABS: Anion Gap 15 (12-20); Blood Urea Nitrogen 38 mg/dL (9-16); Calcium 8.2 mg/dL (8.4-10.2); Carbon Dioxide 18 mmol/L (22-29); Chloride 107 mmol/L (96-108); Creatinine Clr Calc Pharmacy 17.8; Estimated Glomerular Filt Rate 20; Glucose Random 154 mg/dL (60-115); Potassium 3.8 mmol/L (3.3-5.1); Sodium 136 mmol/L (135-145)
[2021-01-29 14:38] LABS: Troponin-I High Sensitivity 10.1 ng/L (<3.5-35.0)
== END 2021-01-29 15:46 | disposition home or self-care (01) ==
PROVIDERS: Physician Assistant; Emergency Provider Emergency Medicine; PCP Nurse Practitioner Family
DX: R06.00 Dyspnea, unspecified (principal); R06.02 Shortness of breath; I48.91 Unspecified atrial fibrillation; I13.0 Hypertensive heart and chronic kidney disease with heart failure and stage 1 through stage 4 chronic kidney disease, or unspecified chronic kidney disease; I50.9 Heart failure, unspecified; E11.22 Type 2 diabetes mellitus with diabetic chronic kidney disease; N18.4 Chronic kidney disease, stage 4 (severe); H54.61 Unqualified visual loss, right eye, normal vision left eye; Z86.73 Personal history of transient ischemic attack (TIA), and cerebral infarction without residual deficits; Z79.4 Long term (current) use of insulin; Z79.01 Long term (current) use of anticoagulants; Z79.899 Other long term (current) drug therapy
CPT/HCPCS: 36415; 71045; 80048; 80076; 83735; 83880; 84484; 85027; 93005; 96360; 99284

== ENCOUNTER 2021-02-12 13:28 | Outpatient (REF) | payer MEDICARE, SELFPAY ==
--- NOTE | ~2021-02-12 | MR_ITS ---
EXAMINATION: MR ABDOMEN WITHOUT AND WITH CONTRAST CLINICAL INFORMATION: K76.89 - Other specified diseases of liver. Complex cyst left hepatic lobe under 2 cm on ultrasound. COMPARISON: Ultrasound abdomen 11/06/2020, 08/26/2019, CT chest noncontrast 05/06/2018 TECHNIQUE: MR abdomen was performed without and with use of 8.5 mL intravenous Gadavist gadolinium contrast. Postcontrast images are performed in multiphase dynamic sequences. Imaging was performed in 3 planes. FINDINGS: LUNG BASES: Disc atelectasis left posterior base. No airspace consolidation or effusion. LIVER, GALLBLADDER, AND BILIARY TREE: The liver is normal in size and smooth in contour and uniform in signal. There is no definite significant signal drop on out of phase imaging to suggest hepatic steatosis. There is no intrahepatic ductal dilatation. There is a benign-appearing small macrolobulated cyst left hepatic lobe measuring approximately 1.5 x 1.8 x 1.2 cm. Margins are circumscribed. Lesion is uniformly high signal on T2. There is a questionable fine thin avascular internal septation. Otherwise, no solid component or fluid fluid level. No peripheral or internal enhancement following gadolinium. In retrospect, cyst is present on CT chest 05/06/2018 with prior measurements approximately 1.3 x 1.7 x 1.0 cm. The remainder of the liver is homogeneous. There is no arterial enhancing lesion or lesion with delayed washout. There is layering sludge in the dependent gallbladder. There may be some fine gravel-like calculi as well. No gallbladder dilatation or wall thickening or pericholecystic fluid. The common duct is unremarkable. PANCREAS: Unremarkable. SPLEEN: Spleen measures 15 cm in sagittal plane and 16.4 cm in coronal plane. The parenchyma areas uniform in signal. There are 2 splenules left upper quadrant, the larger approximately 1.7 x 2.5 cm. ADRENAL GLANDS: Normal. KIDNEYS AND URETERS: The kidneys are normal in size and cortical thickness. There is no hydronephrosis. Subcentimeter cyst present lateral upper pole left kidney and lateral lower pole right kidney. GASTROINTESTINAL TRACT: No bowel obstruction. No ascites or fluid collection. ABDOMINAL WALL: No significant hernia is appreciated. LYMPH NODES: No lymphadenopathy. VASCULAR: Small distal abdominal aortic aneurysm under 4 cm, better appreciated on recent ultrasound. OSSEOUS STRUCTURES: Mild loss of height superior endplate T12 with probable Schmorl's node. No paraspinal soft tissue swelling. MR/MR abdomen wo/w con IMPRESSION: 1. Hepatic cyst left lobe under 2 cm without significant change in size from CT 05/06/2018. Question fine avascular internal septation. No solid component or enhancement. 2. Sludge in the dependent gallbladder with possible fine gravel-like calculi. No gallbladder wall thickening or ductal dilatation. 3. Mild splenomegaly. No adenopathy or ascites.
[2021-02-12 14:02] LABS: Blood Urea Nitrogen 26 mg/dL (9-16); Estimated Glomerular Filt Rate 23
== END 2021-02-12 13:29 | disposition home or self-care (01) ==
LOC: HO.MRI 13:28
PROVIDERS: PCP Nurse Practitioner Family; Visit Provider Internal Medicine Gastroenterology
DX: K76.89 Other specified diseases of liver (principal)
CPT/HCPCS: 36415; 74183; 82565; 84520; A9585

== ENCOUNTER 2021-02-20 12:00 | Outpatient (REF) | payer MEDICARE, SELFPAY ==
--- NOTE | ~2021-02-20 | XR_ITS ---
EXAMINATION: XR CHEST CLINICAL INFORMATION: Cough. COMPARISON: Chest 01/29/2021 TECHNIQUE: 2 views. FINDINGS: There is borderline cardiomegaly with a pacer electrodes in right atrium and right ventricle. Pulmonary vascularity is slightly prominent suspicious for mild congestion. The lungs are expanded and clear. There is mild superior endplate deformity T12 vertebra. It is new since previous chest x-ray 10/03/2020. XR/XR chest 2V IMPRESSION: Suspect mild pulmonary vascular congestion with mild cardiomegaly. No change in the pacer electrodes. Suspect mild compression fracture T12 vertebra. It is new since lateral chest x-ray 10/03/2020
[2021-02-20 14:11] LABS: Alanine Aminotransferase 36 U/L (0-40); Albumin Level 3.1 g/dL (3.5-5.0); Alkaline Phosphatase 190 U/L (39-117); Anion Gap 14 (12-20); Aspartate Amino Transferase 92 U/L (5-37); Blood Urea Nitrogen 25 mg/dL (9-16); Calcium 8.3 mg/dL (8.4-10.2); Carbon Dioxide 24 mmol/L (22-29); Chloride 102 mmol/L (96-108); Estimated Glomerular Filt Rate 20; Glucose Random 150 mg/dL (60-115); Potassium 3.6 mmol/L (3.3-5.1); Sodium 136 mmol/L (135-145); Total Protein 7.6 g/dL (6.5-8.0)
[2021-02-20 14:15] LABS: Estimated Average Glucose 114 mg/dL; Hemoglobin A1c % 5.6 %
[2021-02-20 14:43] LABS: B Type Natriuretic Peptide 762 pg/mL (<100)
== END 2021-02-20 12:01 | disposition home or self-care (01) ==
LOC: HO.HMGCX 12:00
PROVIDERS: PCP Nurse Practitioner Family; Visit Provider Nurse Practitioner Family
DX: R05 Cough (principal); E11.65 Type 2 diabetes mellitus with hyperglycemia
CPT/HCPCS: 36415; 71046; 80053; 83036; 83880

== ENCOUNTER 2021-02-26 12:00 | Emergency (ER) | payer MEDICARE, SELFPAY ==
[2021-02-26 12:43] VITALS: BP 114/53; PULSE 61; RESP 18; TEMP 36.7; O2SAT 100; BMI 28.1
--- NOTE | 2021-02-26 13:16 | ED_ITS ---
HPI - Skin/Abscess/Foreign Bdy General Chief complaint: Skin/Abscess/Foreign Body Stated complaint: pressure sore Time Seen by Provider: 02/26/21 13:16 Source: patient Mode of arrival: wheelchair Limitations: no limitations History of Present Illness HPI narrative: Patient brought by his for decubital ulcer on left buttock for last few days. Patient had multiple medical issues lately and been feeling weak unable to ambulate so lays in the bed or Recliner for most of the time. No fever no pus discharge no swelling no other decubs patient supposed to have visiting nurse has not arrived yet Related Data Home Medications Medication Instructions Recorded Confirmed amiodarone 200 mg tablet 200 mg PO DAILY 05/29/20 02/20/21 cetirizine 10 mg capsule (Zyrtec) 5 mg PO QPM PRN cap 05/29/20 02/20/21 omega 3-ukb-zne-fish oil 1,200 mg 1 cap PO DAILY cap 05/29/20 02/20/21 (144 mg-216 mg) capsule (Fish Oil) apixaban 5 mg tablet (Eliquis) 2.5 mg PO BID tab 10/03/20 02/20/21 metoprolol succinate 100 mg 100 mg PO QAM 10/03/20 02/20/21 capsule sprinkle, ext. release 24 hr torsemide 20 mg tablet 20 mg PO BID 10/03/20 02/20/21 polyethylene glycol 3350 17 17 g PO DAILY 12/12/20 02/20/21 gram/dose oral powder (Miralax) insulin degludec 100 unit/mL (3 30 unit SUBCUT DAILY@1700 01/08/21 02/20/21 mL) subcutaneous pen (Tresiba FlexTouch U-100 insulin) Vitamin D3 1,000 mcg PO DAILY 02/09/21 02/20/21 lancets 30 gauge (OneTouch Delica 02/20/21 Plus Lancet) Previous Rx's Medication Instructions Recorded zolpidem 5 mg tablet (Ambien) 5 mg PO BEDTIME PRN #90 tab 05/29/20 hydrocortisone 2.5 % topical cream 1 ea FL BID-QID PRN #30 g 08/02/20 with perineal applicator (Proctosol HC) omeprazole 20 mg capsule,delayed 20 mg PO DAILY #90 cap 11/13/20 release vitamin A palmitate 10,000 unit 10,000 unit PO DAILY 28 Days #28 02/06/21 capsule cap zinc 50 mg tablet 50 mg PO BID #60 tab 02/06/21 blood sugar diagnostic (OneTouch #3 02/20/21 Verio test strips) linagliptin 5 mg tablet (Tradjenta) 5 mg PO DAILY 90 Days #90 tab 02/20/21 pen needle, diabetic 31 gauge x #100 ea 02/20/2109/26 (BD Ultra-Fine Mini Pen Needle) rosuvastatin 20 mg tablet 20 mg PO QPM 90 Days #90 tab 02/20/21 cephalexin 500 mg capsule 500 mg PO BID 10 Days #20 cap 02/26/21 Allergies Allergy/AdvReac Type Severity Reaction Status Date / Time No Known Allergies Allergy Verified 02/20/21 11:32 [No Known Allergies*] Review of Systems Review of Systems: Yes all other systems are reviewed and are negative [facility] Past Medical History Medical History AAA (abdominal aortic aneurysm) Abdominal aortic aneurysm Atrial fibrillation Chronic kidney disease (CKD) stage G4/A1, severely decreased glomerular filtration rate (GFR) between 15-29 mL/min/1.73 square meter and albuminuria creatinine ratio less than 30 mg/g Congestive heart failure Coronary artery disease History of CVA (cerebrovascular accident) History of prostate cancer Hypercholesterolemia Hypertension Insomnia Legally blind in right eye, as defined in [place] Obesity (BMI 30-39.9) Peripheral vascular disease Renal artery stenosis Retinal detachment Sick sinus syndrome Type 2 diabetes mellitus with hyperglycemia Surgical History H/O colonoscopy H/O esophagogastroduodenoscopy History of cataract surgery History of pacemaker History of prostatectomy History of thumb surgery History of tonsillectomy Hx of cystoscopy Renal calculi Family History Family History Father Heart problem Diabetes Prostate cancer Mother Acute leukemia Social History Social History Household Members: Spouse Housing: Condominium Do you presently have visiting nurse or other home services: Yes Patient Tobacco Use Status: Former Tobacco user Quit Date: 2004 Years Smoked: Cannot remember e-Cigarette/Vaping Use: Never Used Advance Directives: Yes Advance Directives on File: Yes Advance Directives Date on File: 10/06/20 service: Yes Current occupational status: retired Physical Exam Vital Signs: Vital Signs: Last Vital Signs Temp 98.1 F 02/26/21 12:43 Pulse 61 02/26/21 12:43 Resp 18 02/26/21 12:43 BP 114/53 L 02/26/21 12:43 Pulse Ox 100 02/26/21 12:43 Body Mass Index 28.1 Const: General: comfortable, no acute distress and well developed HENMT: Head: Yes normocephalic Eyes: Conjunctivae: conjunctival abnormal (pallor) Neck: Neck: Yes normal visual inspection and Yes full ROM Resp: Effort & Inspection: normal respiratory effort Auscultation: clear to auscultation bilaterally Cardio: Palpation: normal PMI Rate: regular rate Rhythm: regular rhythm Heart sounds: S1 normal heart sound present and S2 normal heart sound present GI: Inspection: Yes normal to inspection Palpation (GI): Soft to palpation and nontender Auscultation: normal bowel sounds : General: Yes no CVA tenderness Back/Spine/Pelvis: Back: no CVA tenderness Thoracic/Lumbar Spine: No thoraco-lumbar spasm, No thoracic spinal tenderness and No lumbar spinal tenderness Skin: Full body images: 1. Second stage decubitus ulcer without any significant pus discharge, slight surrounding erythema MDM - Skin/Abscess/Foreign Bdy MDM Narrative Medical decision making narrative: Patient with stage II decubitus ulcer local care was provided dressing was applied patient will be following up with his diagnosis will give a short course of Keflex antibiotic Discharge Plan Discharge Clinical Impression: Decubital ulcer Qualifiers: Pressure injury location: buttock Pressure injury stage: stage 2 Laterality: left Qualified Code(s): L89.322 - Pressure ulcer of left buttock, stage 2 Patient Disposition: Home, Self-Care Instructions: How to Prevent Pressure Injuries (ED) Additional Instructions: Local care of decubitus as advised Use air tube to sit Antibiotics as prescribed Prescriptions: New cephalexin 500 mg capsule 500 mg PO BID 10 Days Qty: 20 RF: 0 No Action hydrocortisone [Proctosol HC] 2.5 % cream with perineal applicator 1 ea FL BID-QID PRN (Reason: hemorrhoids) Qty: 30 RF: 5 omeprazole 20 mg capsule,delayed release(DR/EC) 20 mg PO DAILY Qty: 90 RF: 3 zinc 50 mg tablet 50 mg PO BID Qty: 60 RF: 0 vitamin A palmitate 10,000 unit capsule 10,000 unit PO DAILY 28 Days Qty: 28 RF: 0 (DME) OneTouch Verio test strips Strip See Rx Instructions .ROUTE .MEDSUPPLY Qty: 3 RF: 3 Tradjenta 5 mg tablet 5 mg PO DAILY 90 Days Qty: 90 RF: 1 (DME) pen needle, diabetic [BD Ultra-Fine Mini Pen Needle] 31 gauge x 3/16 needle See Rx Instructions .ROUTE .MEDSUPPLY Qty: 100 RF: 0 rosuvastatin 20 mg tablet 20 mg PO QPM 90 Days Qty: 90 RF: 1 Tresiba FlexTouch U-100 100 unit/mL (3 mL) insulin pen 30 unit subcut DAILY@1700 RF: 0 Vitamin D3 1,000 mcg PO DAILY RF: 0 omega 1-zer-qqz-fish oil [Fish Oil] 1,200 (144-216) mg capsule 1 cap PO DAILY RF: 0 Zyrtec 10 mg capsule 5 mg PO QPM PRN (Reason: Allergy Symptoms) RF: 0 amiodarone 200 mg tablet 200 mg PO DAILY RF: 0 zolpidem [Ambien] 5 mg tablet 5 mg PO BEDTIME PRN (Reason: sleep) Qty: 90 RF: 0 Eliquis 5 mg tablet 2.5 mg PO BID RF: 0 Hold Instructions: Resume on 10/13/20. Hold for 1 week, start taking again on October 13 metoprolol succinate 100 mg capsule,sprinkle,ER 24hr 100 mg PO QAM RF: 0 torsemide 20 mg tablet 20 mg PO BID RF: 0 polyethylene glycol 3350 [Miralax] 17 gram/dose powder 17 g PO DAILY RF: 0 Interventions: ED Discharge Assessment Last Done: 02/26/21 14:29 Discharge Date/Time: 02/26/21 14:31
--- NOTE | 2021-02-26 13:53 | PC.NURSE ---
pt arrived to ed with complaint of wound on buttock, grade 2 pea sized opening noted on the to inner close to gluteal fold. Portective cream and allyven dsg applied, plan for dc on po abx
== END 2021-02-26 14:31 | disposition home or self-care (01) ==
PROVIDERS: Emergency Provider Internal Medicine; PCP Nurse Practitioner Family
DX: L89.322 Pressure ulcer of left buttock, stage 2 (principal); E11.22 Type 2 diabetes mellitus with diabetic chronic kidney disease; I13.0 Hypertensive heart and chronic kidney disease with heart failure and stage 1 through stage 4 chronic kidney disease, or unspecified chronic kidney disease; N18.4 Chronic kidney disease, stage 4 (severe); I50.9 Heart failure, unspecified
CPT/HCPCS: 99283

== ENCOUNTER 2021-03-05 09:30 | Outpatient (RCR) | payer MEDICARE, SELFPAY ==
[2021-02-09 13:03] VITALS: BP 122/60; PULSE 64; RESP 12; TEMP 36.2; O2SAT 98; BMI 29.2
--- NOTE | 2021-02-09 13:41 | PM.HEMONCCN ---
Subjective - Subjective Chief complaint: Low blood counts Patient: new to practice Consult date: 02/09/21 Primary Care Provider: SAMUEL Ye HPI - Consult Narrative Reason for consult: Anemia/thrombocytopenia Narrative: Florencio Rosales is a 80 year old male referred for evaluation of worsening cytopenias. Patient has multiple medical problems but most recently he developed a serious infection after surgery for kidney stones at [facility] in August 2020. Subsequently in September 2020 he was admitted to [facility] [place] with severe anemia requiring blood transfusion. He underwent both EGD and colonoscopy which revealed colonic polyps. He is on long-term anticoagulation with Eliquis for atrial fibrillation. He was found to have positive DIRK and underwent a rheumatological workup, he was ruled out for lupus and rheumatoid arthritis. Blood work showed persistent anemia with hemoglobin under 9 gram/dL. In the last year patient has had multiple problems including sepsis/bacteremia after surgery for ureteral stone. He has chronic renal insufficiency and is followed by binding machine operator. Recently he was noted to have worsening liver enzymes and elevated bilirubin, he is followed by Dr. Sandhu from Gastroenterology. He is scheduled to undergo abdominal MRI next week. Patient admits to having hematochezia almost daily which he attributes to hemorrhoids. He is using hydrocortisone cream. He is on Eliquis 2.5 mg b.i.d.. He reports easy skin bruising. He denies any chest pain or shortness of breath at this time. Review of Systems - Constitutional Reports as per HPI, Reports fatigue, Denies fever(s), Reports malaise - Cardiovascular Reports no additional cardiovascular complaints - Respiratory Reports no additional respiratory complaints - Gastrointestinal Reports no additional gastrointestinal complaints Oncology Screenings - ECOG Performance Status ECOG Performance Status: 2 [facility] Medical History: Medical History (Last Reviewed 02/09/21 @ 13:09 by Blanca Bruce) AAA (abdominal aortic aneurysm) Abdominal aortic aneurysm Atrial fibrillation Chronic kidney disease (CKD) stage G4/A1, severely decreased glomerular filtration rate (GFR) between 15-29 mL/min/1.73 square meter and albuminuria creatinine ratio less than 30 mg/g Congestive heart failure Coronary artery disease History of CVA (cerebrovascular accident) History of prostate cancer Hypercholesterolemia Hypertension Insomnia Legally blind in right eye, as defined in [place] Obesity (BMI 30-39.9) Peripheral vascular disease Renal artery stenosis Retinal detachment Sick sinus syndrome Type 2 diabetes mellitus with hyperglycemia Family History: Family History (Last Reviewed 02/09/21 @ 13:11 by Blanca Bruce) Father Heart problem Diabetes Prostate cancer Mother Acute leukemia Surgical History: Surgical History (Last Reviewed 02/09/21 @ 13:10 by Blanca Bruce) H/O colonoscopy H/O esophagogastroduodenoscopy History of cataract surgery History of pacemaker History of prostatectomy History of thumb surgery History of tonsillectomy Hx of cystoscopy Renal calculi Social History: Social History (Last Reviewed 02/09/21 @ 13:11 by Blanca Bruce) Living Situation History: Household Members: [facility] Do you presently have visiting nurse or other home services: Yes Alcohol History Details: Alcohol intake frequency: does not drink Tobacco History: Patient Tobacco Use Status: Former Tobacco user Years Smoked: Cannot remember Smoke Quit Date: 2004 e-Cigarette/Vaping Use: Never Used Advance Directives: Advance Directives Date on File: 10/06/20 Occupation Assessmet: service: Yes Current occupational status: retired Home Medications and Allergies Home Medications Medication Instructions Recorded Confirmed Type amiodarone 200 mg tablet 200 mg PO DAILY 05/29/20 02/09/21 History cetirizine 10 mg capsule (Zyrtec) 5 mg PO QPM PRN cap 05/29/20 02/09/21 History linagliptin 5 mg tablet (Tradjenta) 5 mg PO DAILY 05/29/20 02/09/21 History omega 9-kls-zxr-fish oil 1,200 mg 1 cap PO DAILY cap 05/29/20 02/09/21 History (144 mg-216 mg) capsule (Fish Oil) rosuvastatin 20 mg tablet 20 mg PO QPM 05/29/20 02/09/21 History apixaban 5 mg tablet (Eliquis) 2.5 mg PO BID tab 10/03/20 02/09/21 History metoprolol succinate 100 mg 100 mg PO QAM 10/03/20 02/09/21 History capsule sprinkle, ext. release 24 hr torsemide 20 mg tablet 20 mg PO BID 10/03/20 02/09/21 History polyethylene glycol 3350 17 17 g PO DAILY 12/12/20 02/09/21 History gram/dose oral powder (Miralax) insulin degludec 100 unit/mL (3 30 unit SUBCUT DAILY@1700 01/08/21 02/09/21 History mL) subcutaneous pen (Tresiba FlexTouch U-100 insulin) Vitamin D3 1,000 mcg PO DAILY 02/09/21 02/09/21 History Allergies Allergy/AdvReac Type Severity Reaction Status Date / Time No Known Allergies Allergy Verified 01/29/21 09:08 [No Known Allergies*] Physical Exam Vital signs: Vital Signs Temp 97.2 F 02/09/21 13:03 Pulse 64 02/09/21 13:03 Resp 12 02/09/21 13:03 BP 122/60 02/09/21 13:03 Pulse Ox 98 02/09/21 13:03 Intake & Output 02/08/21 02/09/21 02/09/21 18:59 06:59 18:59 Other: Weight 84.9 kg Weight in Grams [id number] Weight 84.9 kg - Constitutional Present: no acute distress, chronically ill appearing - Routine HEENT Exam Eye: Present: conjunctivae pale - Routine Neck Exam Present: supple. Absent: lymphadenopathy - Routine Respiratory Exam Present: CTAB - Routine Cardiovascular Exam Cardiovascular: Present: S1, S2 - Routine Extremities Exam Present: pulses intact, pedal edema Hem/Onc Consult Result - Labs CBC & Chem 7: 02/09/21 13:33 Assessment and Plan (1) Severe anemia Status: Acute 1. This is a pleasant 80-year-old male with multiple medical problems presenting with worsening macrocytic anemia. He also has mild chronic thrombocytopenia. His anemia is probably multifactorial. He has chronic kidney disease, blood loss as he is on Eliquis and has daily hematochezia, recently worsening liver functions and history of folic acid deficiency. He has never received Procrit therapy but he is a candidate for it as he has advanced chronic kidney disease. Macrocytosis could be related to his liver disease, megaloblastic anemia or underlying bone marrow disorder such as myelodysplastic syndrome. Further blood tests which includes vitamin B12, folic acid levels, serum protein electrophoresis and immunofixation has been submitted. He is already scheduled for liver MRI next week. I will transfuse blood, 1 unit today and 1 unit next week as he has a history of congestive heart failure. I have advised him to hold Eliquis for a few days until his hematochezia resolves. He was advised to go to the ER if he has any severe bleeding or new symptoms. Follow-up in 3 weeks.
[2021-02-09 13:47] LABS: MANUAL DIFF FLAG NO
[2021-02-09 13:53] LABS: Basophils Percent Auto 0.2 % (0-2); Eosinophils Absolute Auto 0.1 X10*3/uL (0.0-0.4); Eosinophils Percent Auto 2.3 % (0-4); Hematocrit 22.9 % (42-52); Hemoglobin 7.5 g/dl (14.0-18.0); Imm Gran Abs Auto 0.02 X10*3/uL (0.00-0.03); Imm Gran Pct Auto 0.5 % (0.0-0.4); Immature Retic Fraction 21.4 % (2.3-13.4); Lymphocytes Absolute Auto 0.7 X10*3/uL (1.2-4.9); Lymphocytes Percent Auto 14.8 % (20-40); Mean Corpuscular HGB Conc 32.8 g/dl (31.0-36.0); Mean Corpuscular Hemoglobin 34.9 pg (27.0-33.0); Mean Corpuscular Volume 106.5 fL (80-98); Mean Platelet Volume 9.6 fL (9.4-12.4); Monocytes Absolute Auto 0.6 X10*3/uL (0.1-1.2); Monocytes Percent Auto 13.7 % (2-11); Neutrophils Percent Auto 68.5 % (45-73); Platelet Count 140 X10*3/uL (160-400); Red Blood Count 2.15 X10*6/uL (4.60-5.80); Red Cell Distribution Width 15.3 % (11.0-16.0); Retic HGB Equivalent 36.5 pg (30.0-35.0); Reticulocyte Percent 5.1 % (0.5-1.8); Reticulocytes Absolute 0.109 X10*6/uL (0.026-0.095); White Blood Count 4.4 X10*3/uL (4.8-10.8)
[2021-02-09 14:58] VITALS: BP 124/60; PULSE 61; RESP 18; TEMP 36.3
[2021-02-09 15:07] LABS: Folate 8.9 ng/mL (> or = 4.0); Vitamin B12 637 pg/mL (200-900)
[2021-02-09 15:14] VITALS: BP 121/58; PULSE 60; RESP 18; TEMP 36.2
--- NOTE | 2021-02-09 16:20 | MHC.HEMONC ---
Hem consult with Dr. Rain. H/H 7.5/.9 order for type and screen and one unit RBCS. Consent obtained. Lungs clear, faint fine crackles to right lower base. No respiratory distress noted. No signs of transfusion reaction noted. #20 RAC. Patient to return next Friday for second unit. Patient instructed to keep blood bank band on.
[2021-02-09 17:08] VITALS: BP 138/60; PULSE 60; RESP 16; TEMP 36.2
[2021-02-09 17:24] VITALS: BP 126/59; PULSE 78; RESP 21; TEMP 36.2
[2021-02-12 09:17] VITALS: BP 152/64; PULSE 65; RESP 24; TEMP 35.9; O2SAT 100; BMI 29.0
[2021-02-12 10:28] VITALS: BP 126/59; PULSE 60; RESP 22; TEMP 36.1
[2021-02-12 13:15] VITALS: BP 128/56; PULSE 63; RESP 18; TEMP 36.1
--- NOTE | 2021-02-12 13:23 | MHC.HEMONC ---
Addendum entered by Heike Mansfield RN 02/12/21 13:56: Call placed to Dr. Grayson Rao (Weld Inspector at [facility] [phone]) Updated office that patient is currently holding Eliquis. They will inform shipping coordinator and make appt with patient. Original Note: Second unit of RBC well tolerated. No signs of transfusion reaction. VSS, no respiratory distress noted. #20RAC. Patient voided 400mls prior to discharge. IV angio left for MRI access. MRI updated and will remove after test. Patient to return in 3 weeks for follow up and labs. Patient and encouraged to call office if any new symptoms arise. Patient will continue to hold Eliquis as he reports rectal bleeding per Dr. Rain.
[2021-02-12 17:27] LABS: Erythropoietin (EPO) 46.1 mIU/mL (2.6-18.5)
--- NOTE | 2021-02-13 14:30 | HO.HEMONCPA ---
NO PA REQUIRED FOR PROCRIT. DRUG COVERED UNDER INSURANCE MEDICAL BENITS.
[2021-02-15 14:44] LABS: MANUAL DIFF FLAG NO
[2021-02-15 14:48] LABS: Basophils Percent Auto 0.2 % (0-2); Eosinophils Absolute Auto 0.1 X10*3/uL (0.0-0.4); Eosinophils Percent Auto 1.8 % (0-4); Imm Gran Abs Auto 0.03 X10*3/uL (0.00-0.03); Imm Gran Pct Auto 0.7 % (0.0-0.4); Lymphocytes Absolute Auto 0.6 X10*3/uL (1.2-4.9); Lymphocytes Percent Auto 14.3 % (20-40); Mean Corpuscular HGB Conc 33.3 g/dl (31.0-36.0); Mean Corpuscular Hemoglobin 34.1 pg (27.0-33.0); Mean Corpuscular Volume 102.3 fL (80-98); Mean Platelet Volume 9.7 fL (9.4-12.4); Monocytes Absolute Auto 0.6 X10*3/uL (0.1-1.2); Monocytes Percent Auto 14.3 % (2-11); Neutrophils Absolute Auto 3.1 X10*3/uL (2.0-8.3); Neutrophils Percent Auto 68.7 % (45-73); Platelet Count 132 X10*3/uL (160-400); Red Blood Count 2.64 X10*6/uL (4.60-5.80); Red Cell Distribution Width 17.1 % (11.0-16.0); White Blood Count 4.5 X10*3/uL (4.8-10.8)
[2021-02-15 15:15] VITALS: BP 130/50; PULSE 60; RESP 22; TEMP 36.5; O2SAT 99
[2021-02-15] MEDS: Epoetin Alfa 40,000 UNIT/ML VIAL 40000 UNIT SUBCUT (15:25)
--- NOTE | 2021-02-15 15:35 | MHC.HEMONC ---
Procrit administered to left upper arm and well tolerated. H/H 9.0/27.0- Patient to return next week for labs and possible Procrit.
[2021-02-16 11:46] LABS: IgA 892 mg/dL (70-320); IgG 1833 mg/dL (600-1540); IgM 179 mg/dL (50-300)
[2021-02-21 14:39] LABS: MANUAL DIFF FLAG NO
[2021-02-21 14:43] LABS: Basophils Percent Auto 0.2 % (0-2); Eosinophils Absolute Auto 0.1 X10*3/uL (0.0-0.4); Hematocrit 27.9 % (42-52); Hemoglobin 9.4 g/dl (14.0-18.0); Imm Gran Abs Auto 0.04 X10*3/uL (0.00-0.03); Imm Gran Pct Auto 0.9 % (0.0-0.4); Lymphocytes Absolute Auto 0.6 X10*3/uL (1.2-4.9); Lymphocytes Percent Auto 12.1 % (20-40); Mean Corpuscular HGB Conc 33.7 g/dl (31.0-36.0); Mean Corpuscular Hemoglobin 35.3 pg (27.0-33.0); Mean Corpuscular Volume 104.9 fL (80-98); Mean Platelet Volume 9.8 fL (9.4-12.4); Monocytes Absolute Auto 0.7 X10*3/uL (0.1-1.2); Monocytes Percent Auto 15.4 % (2-11); Neutrophils Absolute Auto 3.2 X10*3/uL (2.0-8.3); Neutrophils Percent Auto 69.4 % (45-73); Platelet Count 134 X10*3/uL (160-400); Red Blood Count 2.66 X10*6/uL (4.60-5.80); White Blood Count 4.6 X10*3/uL (4.8-10.8)
[2021-02-21 15:18] VITALS: BP 122/60; PULSE 60; RESP 18; TEMP 36.4; O2SAT 99
[2021-02-21] MEDS: Epoetin Alfa 40,000 UNIT/ML VIAL 40000 UNIT SUBCUT (15:18)
--- NOTE | 2021-02-21 15:26 | MHC.HEMONC ---
HGB 9.4- Procit administered to right upper arm. VSS. Patient to return in one week for injection, 2 weeks for exam.
[2021-02-28 14:14] LABS: Hematocrit 28.9 % (42-52); Hemoglobin 9.7 g/dl (14.0-18.0); Mean Corpuscular HGB Conc 33.6 g/dl (31.0-36.0); Mean Corpuscular Hemoglobin 34.5 pg (27.0-33.0); Mean Corpuscular Volume 102.8 fL (80-98); Mean Platelet Volume 9.4 fL (9.4-12.4); Platelet Count 155 X10*3/uL (160-400); Red Blood Count 2.81 X10*6/uL (4.60-5.80); Red Cell Distribution Width 15.1 % (11.0-16.0)
[2021-02-28] MEDS: Epoetin Alfa 40,000 UNIT/ML VIAL 40000 UNIT SUBCUT (14:42)
--- NOTE | 2021-02-28 15:04 | MHC.HEMONC ---
Patient arrived for Procrit injection, his was present. Hgb=9.7 and UE=101/53. Medication administered in FERNANDO, patient tolerated it well. Next injection scheduled for 03/05/21.
[2021-03-05 09:09] VITALS: BP 127/60; PULSE 64; RESP 14; TEMP 36.1; O2SAT 99
--- NOTE | 2021-03-05 09:12 | PM.HEMONCPN ---
Medical Summary - Medical Summary Date of Service: 03/05/21 Chief complaint: Follow-up Medical Summary: Diagnosis: Anemia September 2020 he was admitted to [facility] with severe anemia requiring blood transfusion. He underwent both EGD and colonoscopy which revealed colonic polyps. He is on long-term anticoagulation with Eliquis for atrial fibrillation. He was found to have positive DIRK and underwent a rheumatological workup, he was ruled out for lupus and rheumatoid arthritis. Blood work showed persistent anemia with hemoglobin under 9 gram/dL. In the last year patient has had multiple problems including sepsis/bacteremia after surgery for ureteral stone. He has chronic renal insufficiency and is followed by socket puller. In 2020 he was noted to have worsening liver enzymes and elevated bilirubin, he is followed by Dr. Sandhu from Gastroenterology. Patient admits to having hematochezia almost daily which he attributes to hemorrhoids. Interval History Interval history: Patient is here in follow-up. Other than fatigue he has no new complaints. He has been receiving Procrit injections and tolerating it well. He denies any headache, dizziness, chest pain or shortness of breath. Review of Systems - Constitutional Reports as per HPI, Reports no additional constitutional complaints, Reports fatigue - Cardiovascular Reports no additional cardiovascular complaints - Respiratory Reports no additional respiratory complaints - Gastrointestinal Reports no additional gastrointestinal complaints COUNT INCLUDES THE [facility] Medical History: Medical History (Last Reviewed 03/05/21 @ 09:10 by Blanca Bruce) AAA (abdominal aortic aneurysm) Abdominal aortic aneurysm Atrial fibrillation Chronic kidney disease (CKD) stage G4/A1, severely decreased glomerular filtration rate (GFR) between 15-29 mL/min/1.73 square meter and albuminuria creatinine ratio less than 30 mg/g Congestive heart failure Coronary artery disease History of CVA (cerebrovascular accident) History of prostate cancer Hypercholesterolemia Hypertension Insomnia Legally blind in right eye, as defined in [place] Obesity (BMI 30-39.9) Peripheral vascular disease Renal artery stenosis Retinal detachment Sick sinus syndrome Type 2 diabetes mellitus with hyperglycemia Family History: Family History (Last Reviewed 03/05/21 @ 09:10 by Blanca Bruce) Father Heart problem Diabetes Prostate cancer Mother Acute leukemia Surgical History: Surgical History (Last Reviewed 03/05/21 @ 09:10 by Blanca Bruce) H/O colonoscopy H/O esophagogastroduodenoscopy History of cataract surgery History of pacemaker History of prostatectomy History of thumb surgery History of tonsillectomy Hx of cystoscopy Renal calculi Social History: Social History (Last Reviewed 03/05/21 @ 09:10 by Blanca Bruce) Living Situation History: Household Members: Spouse Housing: Condominium Do you presently have visiting nurse or other home services: Yes Alcohol History Details: Alcohol intake frequency: does not drink Tobacco History: Patient Tobacco Use Status: Former Tobacco user Years Smoked: Cannot remember Smoke Quit Date: 2004 e-Cigarette/Vaping Use: Never Used Advance Directives: Advance Directives Date on File: 10/06/20 Occupation Assessmet: service: Yes Current occupational status: retired Oncology Screenings - ECOG Performance Status ECOG Performance Status: 2 Home Medications and Allergies Home Medications Medication Instructions Recorded Confirmed Type amiodarone 200 mg tablet 200 mg PO DAILY 05/29/20 03/05/21 History cetirizine 10 mg capsule (Zyrtec) 5 mg PO QPM PRN cap 05/29/20 03/05/21 History omega 4-cli-frx-fish oil 1,200 mg 1 cap PO DAILY cap 05/29/20 03/05/21 History (144 mg-216 mg) capsule (Fish Oil) apixaban 5 mg tablet (Eliquis) 2.5 mg PO BID tab 10/03/20 03/05/21 History metoprolol succinate 100 mg 100 mg PO QAM 10/03/20 03/05/21 History capsule sprinkle, ext. release 24 hr torsemide 20 mg tablet 20 mg PO BID 10/03/20 03/05/21 History polyethylene glycol 3350 17 17 g PO DAILY 12/12/20 03/05/21 History gram/dose oral powder (Miralax) insulin degludec 100 unit/mL (3 30 unit SUBCUT DAILY@1700 01/08/21 03/05/21 History mL) subcutaneous pen (Tresiba FlexTouch U-100 insulin) Vitamin D3 1,000 mcg PO DAILY 02/09/21 03/05/21 History Allergies Allergy/AdvReac Type Severity Reaction Status Date / Time No Known Allergies Allergy Verified 02/20/21 11:32 [No Known Allergies*] Exam Vital signs: Vital Signs Temp 97 F 03/05/21 09:09 Pulse 64 03/05/21 09:09 Resp 14 03/05/21 09:09 BP 127/60 03/05/21 09:09 Pulse Ox 99 03/05/21 09:09 Weight 84 kg Body Mass Index 29.0 - Constitutional Present: no acute distress, chronically ill appearing - Routine Respiratory Exam Present: CTAB - Routine Cardiovascular Exam Cardiovascular: Present: S1, S2 - Routine Extremities Exam Present: pulses intact, pedal edema Data - Labs CBC & Chem 7: 03/05/21 09:35 03/05/21 09:35 Labs: 02/09/21 13:33 Red Blood Cells Routine Type and Screen Routine Complete Blood Count Auto Diff Routine Erythropoietin (EPO) Routine Immunofixation Pnl, Serum Routine Reticulocyte Count Routine Vitamin B12 and Folate Routine 02/15/21 14:43 CBC W/AUTO DIFF [Complete Blood Count Auto Diff] Routine 02/15/21 15:30 Epoetin Joe [Procrit] 40,000 unit SUBCUT ONCE ONE 02/21/21 14:34 CBC W/AUTO DIFF [Complete Blood Count Auto Diff] Routine 02/21/21 15:04 Epoetin Joe [Procrit] 40,000 unit SUBCUT NOW STA 02/28/21 14:05 Complete Blood Count no Diff Routine 02/28/21 14:45 Epoetin Joe [Procrit] 40,000 unit SUBCUT ONCE ONE Laboratory Last Values WBC 5.0 X10*3/uL (4.8-10.8) 02/28/21 14:05 RBC 2.81 X10*6/uL (4.60-5.80) L 02/28/21 14:05 Hgb 9.7 g/dl (14.0-18.0) L 02/28/21 14:05 Hct 28.9 % (42-52) L 02/28/21 14:05 MCV 102.8 fL (80-98) H 02/28/21 14:05 MCH 34.5 pg (27.0-33.0) H 02/28/21 14:05 MCHC 33.6 g/dl (31.0-36.0) 02/28/21 14:05 RDW 15.1 % (11.0-16.0) 02/28/21 14:05 Plt Count 155 X10*3/uL (160-400) L 02/28/21 14:05 MPV 9.4 fL (9.4-12.4) 02/28/21 14:05 Immature Gran % (Auto) 0.9 % (0.0-0.4) H 02/21/21 14:34 Neut % (Auto) 69.4 % (45-73) 02/21/21 14:34 Lymph % (Auto) 12.1 % (20-40) L 02/21/21 14:34 [place] % (Auto) 15.4 % (2-11) H 02/21/21 14:34 Eos % (Auto) 2.0 % (0-4) 02/21/21 14:34 Baso % (Auto) 0.2 % (0-2) 02/21/21 14:34 Lymph # (Auto) 0.6 X10*3/uL (1.2-4.9) L 02/21/21 14:34 [place] # (Auto) 0.7 X10*3/uL (0.1-1.2) 02/21/21 14:34 Eos # (Auto) 0.1 X10*3/uL (0.0-0.4) 02/21/21 14:34 Baso # (Auto) 0.0 X10*3/uL (0.0-0.2) 02/21/21 14:34 Abs Immat Gran (auto) 0.04 X10*3/uL (0.00-0.03) H 02/21/21 14:34 Absolute Neuts (auto) 3.2 X10*3/uL (2.0-8.3) 02/21/21 14:34 Absolute Nucleated RBC 0.000 X10*3/uL (0.0-0.012) 02/28/21 14:05 Nucleated RBC % (auto) 0.0 /100WBC (0.0-0.2) 02/28/21 14:05 Absolute Retic 0.109 X10*6/uL (0.026-0.095) H 02/09/21 13:33 Percent Retic 5.1 % (0.5-1.8) H 02/09/21 13:33 Immature Retic Fraction 21.4 % (2.3-13.4) H 02/09/21 13:33 Retic Hgb Equivalent 36.5 pg (30.0-35.0) H 02/09/21 13:33 Erythropoietin 46.1 mIU/mL (2.6-18.5) H 02/09/21 13:33 Vitamin B12 637 pg/mL (200-900) 02/09/21 13:33 Folate 8.9 ng/mL (> or = 4.0) 02/09/21 13:33 IgG Total 1833 mg/dL (600-1540) H 02/09/21 13:33 IgA Total 892 mg/dL (70-320) H 02/09/21 13:33 IgM 179 mg/dL (50-300) 02/09/21 13:33 BIBIANA Interpretation 02/09/21 13:33 Blood Type Cancelled 02/28/21 14:05 Antibody Screen Cancelled 02/28/21 14:05 Crossmatch See Detail 02/09/21 13:33 Progress Note: A/P (1) Severe anemia Status: Acute Assessment and plan: 1. This is a pleasant 81-year-old male with multiple medical problems presenting with worsening macrocytic anemia. He also has mild chronic thrombocytopenia. His anemia is probably multifactorial. He has chronic kidney disease, blood loss as he is on Eliquis and has daily hematochezia, recently worsening liver functions and history of folic acid deficiency. Macrocytosis could be related to his liver disease, megaloblastic anemia or underlying bone marrow disorder such as myelodysplastic syndrome. Further blood tests revealed normal vitamin B12, folic acid levels, serum protein electrophoresis and immunofixation. He is on Procrit for chronic kidney disease stage 4, he is responding and anemia has improved. Administer Procrit 17301 units subQ x1 today. Follow-up in 3 weeks. - Time Spent With Patient Time Spent with Patient (in minutes): 15
[2021-03-05 09:50] LABS: Hematocrit 30.2 % (42-52); Mean Corpuscular HGB Conc 33.1 g/dl (31.0-36.0); Mean Corpuscular Hemoglobin 33.8 pg (27.0-33.0); Mean Platelet Volume 9.4 fL (9.4-12.4); Platelet Count 165 X10*3/uL (160-400); Red Blood Count 2.96 X10*6/uL (4.60-5.80); Red Cell Distribution Width 14.9 % (11.0-16.0); White Blood Count 5.5 X10*3/uL (4.8-10.8)
[2021-03-05 10:39] LABS: Anion Gap 16 (12-20); Blood Urea Nitrogen 30 mg/dL (9-16); Carbon Dioxide 24 mmol/L (22-29); Chloride 99 mmol/L (96-108); Potassium 3.5 mmol/L (3.3-5.1); Sodium 135 mmol/L (135-145)
[2021-03-05 10:40] LABS: Alanine Aminotransferase 47 U/L (0-40); Alkaline Phosphatase 189 U/L (39-117); Aspartate Amino Transferase 117 U/L (5-37); Bilirubin Total 3.5 mg/dL (0.0-1.0); Calcium 8.3 mg/dL (8.4-10.2); Creatinine Clr Calc Pharmacy 18.4; Estimated Glomerular Filt Rate 18; Glucose Random 190 mg/dL (60-115); Total Protein 7.4 g/dL (6.5-8.0)
--- NOTE | 2021-03-05 11:50 | MHC.HEMONC ---
Hgb 10.0 Dr. Rain mad aware 20,000 units procrit given and follow up booked in 3 weeks for next injection per MD.
[2021-04-02 10:44] LABS: Glucose, Whole Blood 230 mg/dL (60-115)
== END 2021-06-01 | disposition home or self-care (01) ==
LOC: HO.ONC 09:30
PROVIDERS: PCP Nurse Practitioner Family; Referring Provider Student in an Organized Health Care Education/Training Program; Visit Provider Internal Medicine
DX: N18.4 Chronic kidney disease, stage 4 (severe) (principal); D63.1 Anemia in chronic kidney disease; E11.22 Type 2 diabetes mellitus with diabetic chronic kidney disease; D69.6 Thrombocytopenia, unspecified; K92.1 Melena; I48.91 Unspecified atrial fibrillation; Z79.01 Long term (current) use of anticoagulants
CPT/HCPCS: 36415; 36430; 80053; 82607; 82668; 82746; 82784; 82947; 85025; 85027; 85045; 86334; 86850; 86900; 86901; 86923; 96372; 99204; 99214; J0885; P9016

== ENCOUNTER 2021-03-17 17:29 | Emergency (ER) | payer MEDICARE, SELFPAY ==
--- NOTE | ~2021-03-17 | XR_ITS ---
EXAMINATION: PORTABLE CHEST 1 VIEW CLINICAL INFORMATION: sob . COMPARISON: 02/20/2021. TECHNIQUE: Portable frontal view of the chest was obtained. FINDINGS: Patient is rotated to the right but otherwise the lungs are mildly hypoexpanded. No focal infiltrate, effusion, edema, or pneumothorax. Cardiac and mediastinal silhouettes are within normal limits for this degree of rotation. Dual-lead pacemaker again noted. No acute bony abnormality seen. XR/XR chest 1V IMPRESSION: Rotated and hypoexpanded but no acute process otherwise.
--- NOTE | 2021-03-17 17:39 | ED_ITS ---
HPI - General Adult General Chief complaint: Dyspnea Stated complaint: weakness Time Seen by Provider: 03/17/21 17:38 Source: patient Mode of arrival: EMS History of Present Illness HPI narrative: Patient is 81 years old male with extensive past medical history of hypertension, diabetes, CHF, AFib, CVA, prostate cancer, pancytopenia. Comes now for 3- 4 week of generalized weakness no nausea no vomiting no abdominal pain no chest pain no shortness of breath no chest pain, patient lives with his without any other help used to work with walker last time he walked was 1 month ago. Patient had labs drawn on 03/05 which shows improvement H&H was 10, BUN 30 creatinine 3.37. Related Data Home Medications Medication Instructions Recorded Confirmed amiodarone 200 mg tablet 200 mg PO DAILY 05/29/20 03/05/21 cetirizine 10 mg capsule (Zyrtec) 5 mg PO QPM PRN cap 05/29/20 03/05/21 omega 7-grq-mgn-fish oil 1,200 mg 1 cap PO DAILY cap 05/29/20 03/05/21 (144 mg-216 mg) capsule (Fish Oil) apixaban 5 mg tablet (Eliquis) 2.5 mg PO BID tab 10/03/20 03/05/21 metoprolol succinate 100 mg 100 mg PO QAM 10/03/20 03/05/21 capsule sprinkle, ext. release 24 hr torsemide 20 mg tablet 20 mg PO BID 10/03/20 03/05/21 polyethylene glycol 3350 17 17 g PO DAILY 12/12/20 03/05/21 gram/dose oral powder (Miralax) insulin degludec 100 unit/mL (3 30 unit SUBCUT DAILY@1700 01/08/21 03/05/21 mL) subcutaneous pen (Tresiba FlexTouch U-100 insulin) Vitamin D3 1,000 mcg PO DAILY 02/09/21 03/05/21 Previous Rx's Medication Instructions Recorded zolpidem 5 mg tablet (Ambien) 5 mg PO BEDTIME PRN #90 tab 05/29/20 hydrocortisone 2.5 % topical cream 1 ea HI BID-QID PRN #30 g 08/02/20 with perineal applicator (Proctosol HC) omeprazole 20 mg capsule,delayed 20 mg PO DAILY #90 cap 11/13/20 release pen needle, diabetic 31 gauge x #100 ea 02/20/21 3/16 (BD Ultra-Fine Mini Pen Needle) rosuvastatin 20 mg tablet 20 mg PO QPM 90 Days #90 tab 02/20/21 cephalexin 500 mg capsule 500 mg PO BID 10 Days #20 cap 02/26/21 vitamin A 10,000 unit capsule 1 cap PO DAILY #28 cap 02/27/21 zinc sulfate 50 mg zinc (220 mg) 50 mg PO BID #60 tab 03/01/21 tablet blood sugar diagnostic (OneTouch #3 03/05/21 Verio test strips) lancets 30 gauge (OneTouch Delica #300 ea 03/05/21 Plus Lancet) linagliptin 5 mg tablet (Tradjenta) 5 mg PO DAILY 90 Days #90 tab 03/05/21 Allergies Allergy/AdvReac Type Severity Reaction Status Date / Time No Known Allergies Allergy Verified 03/17/21 17:45 [No Known Allergies*] Review of Systems Review of Systems: Yes all other systems are reviewed and are negative [facility] Past Medical History Medical History AAA (abdominal aortic aneurysm) Abdominal aortic aneurysm Atrial fibrillation Chronic kidney disease (CKD) stage G4/A1, severely decreased glomerular filtration rate (GFR) between 15-29 mL/min/1.73 square meter and albuminuria creatinine ratio less than 30 mg/g Congestive heart failure Coronary artery disease History of CVA (cerebrovascular accident) History of prostate cancer Hypercholesterolemia Hypertension Insomnia Legally blind in right eye, as defined in [place] Obesity (BMI 30-39.9) Peripheral vascular disease Renal artery stenosis Retinal detachment Sick sinus syndrome Type 2 diabetes mellitus with hyperglycemia Surgical History H/O colonoscopy H/O esophagogastroduodenoscopy History of cataract surgery History of pacemaker History of prostatectomy History of thumb surgery History of tonsillectomy Hx of cystoscopy Renal calculi Family History Family History Father Heart problem Diabetes Prostate cancer Mother Acute leukemia Social History Social History Household Members: Spouse Housing: Condominium Do you presently have visiting nurse or other home services: Yes Alcohol intake: never Patient Tobacco Use Status: Former Tobacco user Quit Date: 2004 Years Smoked: Cannot remember e-Cigarette/Vaping Use: Never Used Use of substances other than those prescribed or required for medical reasons: No Advance Directives: Yes Advance Directives on File: Yes Advance Directives Date on File: 10/06/20 service: Yes Current occupational status: retired Physical Exam Vital Signs: Vital Signs: Last Vital Signs Temp 98.0 F 03/17/21 17:55 Pulse 63 03/17/21 17:55 Resp 22 H 03/17/21 17:55 BP 118/37 L 03/17/21 17:55 Pulse Ox 98 03/17/21 17:55 Body Mass Index 28.1 Appearance: Alert. Oriented X3. No acute distress. Eyes: PERRLA, No Nystagmus, pallor++ ENT: Pharynx normal. Oral Mucosa moist Neck: Normal inspection. Neck supple. CVS: Normal heart rate and rhythm. Pulses normal. Respiratory: No respiratory distress. Equal air entry bilateral, bilateral diffuse crackles at bases Abdomen: Soft and nontender. Bowel sounds are present, no mass palpable, no CVA tenderness Skin: Skin warm and dry. Normal skin color. Normal skin turgor. Extremities: 2+ pedal edema. No calf tenderness Neuro: Oriented X 3. No motor deficit. No sensory deficit.No cerebellar signs , cranial nerves II-XII intact Medical Decision Making MDM Narrative Medical decision making narrative: Patient with mild hyperkalemia with chronic renal failure generalized weakness for weeks and able to be managed at home per family and per himself like to go to rehab. Potassium was replaced. Will consult case management for placement Lab Data Lab results reviewed: Yes I reviewed the patient's lab results. Result diagrams: 03/17/21 18:29 03/17/21 18:29 Labs: Lab Results 03/17/21 03/17/21 03/17/21 Range/Units 18:29 18:29 18:29 WBC 4.8 (4.8-10.8) X10*3/uL RBC 2.93 L (4.60-5.80) X10*6/uL Hgb 9.8 L (14.0-18.0) g/dl Hct 29.1 L (42-52) % MCV 99.3 H (80-98) fL MCH 33.4 H (27.0-33.0) pg MCHC 33.7 (31.0-36.0) g/dl RDW 14.6 (11.0-16.0) % Plt Count 139 L (160-400) X10*3/uL MPV 10.6 (9.4-12.4) fL Immature Gran % (Auto) 0.4 (0.0-0.4) % Neut % (Auto) 74.4 H (45-73) % Lymph % (Auto) 9.9 L (20-40) % [place] % (Auto) 13.9 H (2-11) % Eos % (Auto) 1.0 (0-4) % Baso % (Auto) 0.4 (0-2) % Lymph # (Auto) 0.5 L (1.2-4.9) X10*3/uL [place] # (Auto) 0.7 (0.1-1.2) X10*3/uL Eos # (Auto) 0.1 (0.0-0.4) X10*3/uL Baso # (Auto) 0.0 (0.0-0.2) X10*3/uL Abs Immat Gran (auto) 0.02 (0.00-0.03) X10*3/uL Absolute Neuts (auto) 3.6 (2.0-8.3) X10*3/uL Absolute Nucleated RBC 0.000 (0.0-0.012) X10*3/uL Nucleated RBC % (auto) 0.0 (0.0-0.2) /100WBC Sodium 134 L (135-145) mmol/L Potassium 2.8 L (3.3-5.1) mmol/L Chloride 98 (96-108) mmol/L Carbon Dioxide 23 (22-29) mmol/L Anion Gap 16 (12-20) BUN 38 H (9-16) mg/dL Creatinine 3.07 H (0.5-1.4) mg/dL Estim Creat Clear Calc 19.9 Estimated GFR 20 Random Glucose 207 H (60-115) mg/dL Calcium 8.1 L (8.4-10.2) mg/dL Magnesium 2.9 H (1.6-2.6) mg/dL Total Bilirubin 3.5 H (0.0-1.0) mg/dL AST 153 H (5-37) U/L ALT 63 H (0-40) U/L Alkaline Phosphatase 200 H (39-117) U/L B-Natriuretic Peptide 543 H (<100) pg/mL Total Protein 6.8 (6.5-8.0) g/dL Albumin 2.7 L (3.5-5.0) g/dL TSH (0.32-4.0) uIU/mL COVID-19 (NATACHA) (Negative) COVID-19 Clin Com 03/17/21 03/17/21 Range/Units 18:29 21:50 WBC (4.8-10.8) X10*3/uL RBC (4.60-5.80) X10*6/uL Hgb (14.0-18.0) g/dl Hct (42-52) % MCV (80-98) fL MCH (27.0-33.0) pg MCHC (31.0-36.0) g/dl RDW (11.0-16.0) % Plt Count (160-400) X10*3/uL MPV (9.4-12.4) fL Immature Gran % (Auto) (0.0-0.4) % Neut % (Auto) (45-73) % Lymph % (Auto) (20-40) % [place] % (Auto) (2-11) % Eos % (Auto) (0-4) % Baso % (Auto) (0-2) % Lymph # (Auto) (1.2-4.9) X10*3/uL [place] # (Auto) (0.1-1.2) X10*3/uL Eos # (Auto) (0.0-0.4) X10*3/uL Baso # (Auto) (0.0-0.2) X10*3/uL Abs Immat Gran (auto) (0.00-0.03) X10*3/uL Absolute Neuts (auto) (2.0-8.3) X10*3/uL Absolute Nucleated RBC (0.0-0.012) X10*3/uL Nucleated RBC % (auto) (0.0-0.2) /100WBC Sodium (135-145) mmol/L Potassium (3.3-5.1) mmol/L Chloride (96-108) mmol/L Carbon Dioxide (22-29) mmol/L Anion Gap (12-20) BUN (9-16) mg/dL Creatinine (0.5-1.4) mg/dL Estim Creat Clear Calc Estimated GFR Random Glucose (60-115) mg/dL Calcium (8.4-10.2) mg/dL Magnesium (1.6-2.6) mg/dL Total Bilirubin (0.0-1.0) mg/dL AST (5-37) U/L ALT (0-40) U/L Alkaline Phosphatase (39-117) U/L B-Natriuretic Peptide (<100) pg/mL Total Protein (6.5-8.0) g/dL Albumin (3.5-5.0) g/dL TSH 3.70 (0.32-4.0) uIU/mL COVID-19 (NATACHA) Negative (Negative) COVID-19 Clin Com See Note ECG Data Attestation: I personally reviewed and interpreted this ECG as follows: Interpretation: Normal sinus rhythm heart rate 63 beats per minute first-degree heart block LVH no acute ischemic changes Discharge Plan Discharge Clinical Impression: Weakness, Hypokalemia Heart failure Qualifiers: Heart failure type: diastolic Heart failure chronicity: chronic Qualified Code(s): I50.32 - Chronic diastolic (congestive) heart failure Prescriptions: No Action hydrocortisone [Proctosol HC] 2.5 % cream with perineal applicator 1 ea HI BID-QID PRN (Reason: hemorrhoids) Qty: 30 RF: 5 omeprazole 20 mg capsule,delayed release(DR/EC) 20 mg PO DAILY Qty: 90 RF: 3 (DME) pen needle, diabetic [BD Ultra-Fine Mini Pen Needle] 31 gauge x 3/16 needle See Rx Instructions .ROUTE .MEDSUPPLY Qty: 100 RF: 0 rosuvastatin 20 mg tablet 20 mg PO QPM 90 Days Qty: 90 RF: 1 vitamin A 10,000 unit capsule 1 cap PO DAILY Qty: 28 RF: 0 zinc sulfate 50 mg zinc (220 mg) tablet 50 mg PO BID Qty: 60 RF: 0 (DME) lancets [OneTouch Delica Plus Lancet] 30 gauge misc See Rx Instructions .Route Qty: 300 RF: 0 (DME) OneTouch Verio test strips Strip See Rx Instructions .ROUTE .MEDSUPPLY Qty: 3 RF: 3 Tradjenta 5 mg tablet 5 mg PO DAILY 90 Days Qty: 90 RF: 1 Tresiba FlexTouch U-100 100 unit/mL (3 mL) insulin pen 30 unit subcut DAILY@1700 RF: 0 Vitamin D3 1,000 mcg PO DAILY RF: 0 cephalexin 500 mg capsule 500 mg PO BID 10 Days Qty: 20 RF: 0 omega 2-jmc-uor-fish oil [Fish Oil] 1,200 (144-216) mg capsule 1 cap PO DAILY RF: 0 Zyrtec 10 mg capsule 5 mg PO QPM PRN (Reason: Allergy Symptoms) RF: 0 amiodarone 200 mg tablet 200 mg PO DAILY RF: 0 zolpidem [Ambien] 5 mg tablet 5 mg PO BEDTIME PRN (Reason: sleep) Qty: 90 RF: 0 Eliquis 5 mg tablet 2.5 mg PO BID RF: 0 Hold Instructions: Resume on 10/13/20. Hold for 1 week, start taking again on October 13 metoprolol succinate 100 mg capsule,sprinkle,ER 24hr 100 mg PO QAM RF: 0 torsemide 20 mg tablet 20 mg PO BID RF: 0 polyethylene glycol 3350 [Miralax] 17 gram/dose powder 17 g PO DAILY RF: 0
[2021-03-17 17:45] VITALS: BP 118/37; BP 130/70; PULSE 63; RESP 22; TEMP 36.7; O2SAT 97; O2SAT 98; BMI 28.1
--- NOTE | 2021-03-17 17:53 | ECG_ITS ---
Test Reason : DYSPNEA Blood Pressure : / mmHG Vent. Rate : 063 BPM Atrial Rate : 063 BPM P-R Int : 222 ms QRS Dur : 120 ms QT Int : 570 ms P-R-T Axes : 106 -14 074 degrees QTc Int : 583 ms Sinus rhythm with 1st degree A-V block Left ventricular hypertrophy with QRS widening and repolarization abnormality Abnormal ECG When compared with ECG of 29-JAN-2021 11:55, Sinus rhythm has replaced Electronic atrial pacemaker QRS axis Shifted left ST now depressed in Lateral leads Referred By: Bebeto Mcwilliams Electronically Signed By:SOCORRO JACKSON
[2021-03-17 17:55] VITALS: BP 118/37; PULSE 63; RESP 22; TEMP 36.7; O2SAT 98
--- NOTE | 2021-03-17 18:01 | PC.NURSE ---
pt from home, EMS has been called to his home 3 times this week to help the pt get up from a chair and up from bed. HE states he has been increasingly weak, also states his ankles are swollen mote than baseline. EMS put pt on 2L oxygen, sats were 97%. Pt on room air on arrival to ER, sats remain 97%. Pt states he is unable to walk lately, states it has been almost a month since he was able to walk. MD to bedside
[2021-03-17 18:34] LABS: MANUAL DIFF FLAG NO
[2021-03-17 19:09] LABS: Alanine Aminotransferase 63 U/L (0-40); Albumin Level 2.7 g/dL (3.5-5.0); Alkaline Phosphatase 200 U/L (39-117); Anion Gap 16 (12-20); Aspartate Amino Transferase 153 U/L (5-37); Bilirubin Total 3.5 mg/dL (0.0-1.0); Blood Urea Nitrogen 38 mg/dL (9-16); Calcium 8.1 mg/dL (8.4-10.2); Carbon Dioxide 23 mmol/L (22-29); Chloride 98 mmol/L (96-108); Creatinine Clr Calc Pharmacy 19.9; Estimated Glomerular Filt Rate 20; Glucose Random 207 mg/dL (60-115); Magnesium 2.9 mg/dL (1.6-2.6); Potassium 2.8 mmol/L (3.3-5.1); Sodium 134 mmol/L (135-145); Total Protein 6.8 g/dL (6.5-8.0)
[2021-03-17 19:10] LABS: B Type Natriuretic Peptide 543 pg/mL (<100)
[2021-03-17 19:20] LABS: Basophils Percent Auto 0.4 % (0-2); Eosinophils Absolute Auto 0.1 X10*3/uL (0.0-0.4); Hematocrit 29.1 % (42-52); Hemoglobin 9.8 g/dl (14.0-18.0); Imm Gran Abs Auto 0.02 X10*3/uL (0.00-0.03); Imm Gran Pct Auto 0.4 % (0.0-0.4); Lymphocytes Absolute Auto 0.5 X10*3/uL (1.2-4.9); Lymphocytes Percent Auto 9.9 % (20-40); Mean Corpuscular HGB Conc 33.7 g/dl (31.0-36.0); Mean Corpuscular Hemoglobin 33.4 pg (27.0-33.0); Mean Corpuscular Volume 99.3 fL (80-98); Mean Platelet Volume 10.6 fL (9.4-12.4); Monocytes Absolute Auto 0.7 X10*3/uL (0.1-1.2); Monocytes Percent Auto 13.9 % (2-11); Neutrophils Absolute Auto 3.6 X10*3/uL (2.0-8.3); Neutrophils Percent Auto 74.4 % (45-73); Platelet Count 139 X10*3/uL (160-400); Red Blood Count 2.93 X10*6/uL (4.60-5.80); Red Cell Distribution Width 14.6 % (11.0-16.0); White Blood Count 4.8 X10*3/uL (4.8-10.8)
[2021-03-17] MEDS: Potassium Chloride/H20 10 MEQ/100 ML PIGGYBACK 100 MEQ IV (20:04)
[2021-03-17] MEDS: Potassium Bicarbonate/Cit AC 25 MEQ TABLET.EFF PO (20:06)
[2021-03-17 22:24] LABS: COVID-19 Test Negative (Negative)
[2021-03-18] VITALS (7 sets, daily range): BP systolic 111–138; BP diastolic 40–54; PULSE 60–68; RESP 14–18; TEMP 36.5–36.6; O2SAT 95–98
[2021-03-18 06:32] LABS: Anion Gap 15 (12-20); Blood Urea Nitrogen 38 mg/dL (9-16); Calcium 8.3 mg/dL (8.4-10.2); Carbon Dioxide 23 mmol/L (22-29); Chloride 102 mmol/L (96-108); Estimated Glomerular Filt Rate 20; Glucose Random 108 mg/dL (60-115); Potassium 2.8 mmol/L (3.3-5.1); Sodium 137 mmol/L (135-145)
--- NOTE | 2021-03-18 09:42 | PC.NURSE ---
pt was sleeping since 7am at this RN arrival. jaundice, visable chest rise, at 1030 wakes and stands with 2 assists. present. both aware that potassium level remained the same after supplimental potassium. Pt has no pain but c/o general weakness i couldn't take more than 2 steps skin integrity is good, bed mobility is limited. axox3.
[2021-03-18 10:27] LABS: Glucose, Whole Blood 99 mg/dL (60-115)
--- NOTE | 2021-03-18 10:47 | PC.NURSE ---
this rn has spoken with both and daughter at bedside. awaiting plan of care from MD re: low potassium.
--- NOTE | 2021-03-18 10:55 | MHC.CM.ED ---
Received case management consult overnight. Patient has been experiencing increased weakness over the past couple of weeks. Physical therapy eval is ordered and pending. Met with patient in regards to discharge planning. Patient lives with his , geetha with a walker and had no services prior to coming to the ER. PCP verified. Copy of HCP verified to be on file. Patient has been to [facility]. For the 2 weeks he was there, he only received 5 therapies sessions and does not want to return. Spoke with patient's , Sallie, via telephone. Patient received Coull vaccines on 11/02 and 11/23. List of facility choices provided from [facility] via email. Both patient and Sallie aware patient will spend the night in the ER. Continue to monitor for d/c needs.
[2021-03-18] MEDS: Amiodarone HCL 200 MG TABLET PO (11:01)
[2021-03-18] MEDS: Torsemide 20 MG TABLET PO ×2 (11:03→20:50)
[2021-03-18] MEDS: Omeprazole 20 MG CAPSULE.DR PO (11:03)
[2021-03-18] MEDS: Zinc Sulfate 220 MG CAPSULE PO (11:03)
[2021-03-18] MEDS: Cholecalciferol (Vitamin D3) 25 MCG TABLET PO (11:03)
[2021-03-18] MEDS: Metoprolol Succinate ER 100 MG TAB.ER.24H PO (11:03)
[2021-03-18] MEDS: polyethylene glycoL 3350 17 GM POWD.PACK PO (11:04)
--- NOTE | 2021-03-18 11:29 | PC.NURSE ---
md reminded to look over labs. pt is jaundice, no abd distention. eating/drinking w/o diff.
[2021-03-18] MEDS: Potassium Bicarbonate/Cit AC 25 MEQ TABLET.EFF PO ×2 (12:36→20:50)
[2021-03-18 16:58] LABS: Glucose, Whole Blood 130 mg/dL (60-115)
[2021-03-18] MEDS: Insulin Glargine,Hum.rec.anlog 100 UNIT/ML 10 ML VIAL 21 UNIT SUBCUT (17:56)
--- NOTE | 2021-03-18 17:57 | PC.NURSE ---
resting quietly. no complaints. nsr on monitor aware that he will be in ed overnight. labs and PT in the am. remains jaundice. unlaboredresp.
--- NOTE | 2021-03-18 20:08 | PC.NURSE ---
pt able to stand and pivot with assist of 1 to bedside commode. pt not interested in dinner tray, had a late lunch around 4pm.
[2021-03-18 20:42] LABS: Glucose, Whole Blood 184 mg/dL (60-115)
[2021-03-18] MEDS: Atorvastatin Calcium 80 MG TABLET PO (20:50)
[2021-03-19] VITALS: BP 106/40; PULSE 63; RESP 20; O2SAT 96
--- NOTE | 2021-03-19 05:51 | PC.NURSE ---
Pt resting quietly, no complaints, rang once to get help with repositioning. NSR on monitor, jaundice noted, unlabored respirations. Pt to have Physical Therapy eval in the morning. Will continue to monitor.
[2021-03-19 08:31] VITALS: BP 109/42; PULSE 60; RESP 17; TEMP 36.4
[2021-03-19 09:09] VITALS: BP 108/43; PULSE 61
[2021-03-19 09:09] LABS: Alanine Aminotransferase 56 U/L (0-40); Albumin Level 2.4 g/dL (3.5-5.0); Alkaline Phosphatase 146 U/L (39-117); Anion Gap 13 (12-20); Aspartate Amino Transferase 129 U/L (5-37); Bilirubin Total 3.6 mg/dL (0.0-1.0); Blood Urea Nitrogen 40 mg/dL (9-16); Calcium 8.1 mg/dL (8.4-10.2); Carbon Dioxide 24 mmol/L (22-29); Chloride 100 mmol/L (96-108); Creatinine Clr Calc Pharmacy 20.3; Estimated Glomerular Filt Rate 20; Glucose Random 182 mg/dL (60-115); Potassium 3.2 mmol/L (3.3-5.1); Sodium 134 mmol/L (135-145); Total Protein 5.9 g/dL (6.5-8.0)
[2021-03-19] MEDS: Metoprolol Succinate ER 100 MG TAB.ER.24H PO (09:09)
[2021-03-19 09:12] VITALS: BP 108/43; PULSE 60
[2021-03-19] MEDS: Omeprazole 20 MG CAPSULE.DR PO (09:12)
[2021-03-19] MEDS: Amiodarone HCL 200 MG TABLET PO (09:12)
[2021-03-19] MEDS: Cholecalciferol (Vitamin D3) 25 MCG TABLET PO (09:12)
[2021-03-19] MEDS: Potassium Bicarbonate/Cit AC 25 MEQ TABLET.EFF PO (09:15)
[2021-03-19] MEDS: Torsemide 20 MG TABLET PO ×2 (09:18→20:36)
--- NOTE | 2021-03-19 09:20 | PC.NURSE ---
Pt ate breakfast, meds given. no c/o pain/sob/dizziness/headache. Pt resting quietly. vss.
[2021-03-19 10:24] VITALS: BP 108/43; PULSE 60
--- NOTE | 2021-03-19 10:55 | MHC.CM.ED ---
Addendum entered by Jordyn Martínez 03/19/21 15:34: No bed offers could be made today. Beds are expected to open up tomorrow. Patient and Sallie aware. Patient will spend another night in the ER. Original Note: Patient remains in ER. Physical therapy eval completed. Met with patient and Sallie. Facility choices are: 1)[facility] 2) [facility] 3) [facility] [address]. Referrals made via [employer]. Continue to monitor for d/c needs.
[2021-03-19 17:10] VITALS: BP 114/41; PULSE 61; RESP 18; O2SAT 95
--- NOTE | 2021-03-19 17:12 | PC.NURSE ---
Pt resting quietly. VSS. Pt updated on plan for placement. Possible tx to SNF tomorrow pending insurance per case management.
[2021-03-19] MEDS: Insulin Glargine,Hum.rec.anlog 100 UNIT/ML 10 ML VIAL 21 UNIT SUBCUT (18:27)
[2021-03-19] MEDS: Atorvastatin Calcium 80 MG TABLET PO (20:36)
--- NOTE | 2021-03-19 20:40 | PC.NURSE ---
pt medicated as per emar. pt refused to drink K+.
[2021-03-19 22:40] LABS: Glucose, Whole Blood 173 mg/dL (60-115)
[2021-03-20 00:53] VITALS: BP 127/49; PULSE 62; RESP 18; O2SAT 97
--- NOTE | 2021-03-20 00:57 | PC.NURSE ---
PT WAS RELAXING IN RECLINER CHAIR AND RETURNS TO STRETCHER WITH ASSISTANCE. PT UNSTEADY ON FEET, PT DENIES ANY COMPLAINTS AT THIS TIME. VS OBTAINED. PT AWAITING FOR CASE MGT IN AM.
--- NOTE | 2021-03-20 01:30 | PC.NURSE ---
PT RESTING IN HOSPITAL BED IN NAD. RESPIRATIONS EASY, N/L. SKIN W/D. WILL CONTINUE TO MONITOR PT.
--- NOTE | 2021-03-20 03:58 | PC.NURSE ---
Helped pt with urinal, 200 ml. Got pt comfortable in bed again.
[2021-03-20 08:23] VITALS: BP 111/36; PULSE 60; RESP 16; TEMP 36.7; O2SAT 96
[2021-03-20] MEDS: Metoprolol Succinate ER 100 MG TAB.ER.24H PO (08:27)
[2021-03-20] MEDS: Potassium Bicarbonate/Cit AC 25 MEQ TABLET.EFF PO (08:27)
[2021-03-20] MEDS: Torsemide 20 MG TABLET PO (08:27)
[2021-03-20] MEDS: Cholecalciferol (Vitamin D3) 25 MCG TABLET PO (08:28)
[2021-03-20] MEDS: Omeprazole 20 MG CAPSULE.DR PO (08:28)
[2021-03-20] MEDS: Amiodarone HCL 200 MG TABLET PO (08:28)
[2021-03-20] MEDS: polyethylene glycoL 3350 17 GM POWD.PACK PO (08:28)
--- NOTE | 2021-03-20 10:06 | MHC.CM.ED ---
Patient remains in ER. [facility]. Continue to monitor for d/c needs.
--- NOTE | 2021-03-20 10:10 | MHC.CM.ED ---
Patient remains in ER. [facility] does not have a bed. Waiting to hear from Alhaji Johnston and [facility] on [place]. Continue to monitor for d/c needs.
[2021-03-20] MEDS: Zinc Sulfate 220 MG CAPSULE PO (10:39)
[2021-03-20 11:53] LABS: COVID-19 Test Negative (Negative); IDNOW Serial# 9DD0AD1C
--- NOTE | 2021-03-20 12:11 | MHC.CM.ED ---
[facility] is able to offer a bed today. They are requesting a new Covid swab. Ordered by Toni MCGHEE. Patient can leave at 3pm. [facility] booked. [facility] with chart. Patient aware. Attempted to let Sallie know via telephone at [phone]. Left voicemail with above information. Toni MCGHEE aware. Continue to monitor for d/c needs.
[2021-03-20 14:00] VITALS: BP 101/69; PULSE 64; RESP 14; TEMP 36.8; O2SAT 96
[2021-03-20 14:15] LABS: Glucose, Whole Blood 174 mg/dL (60-115)
== END 2021-03-20 15:03 | disposition skilled nursing facility (03) ==
PROVIDERS: Emergency Medicine Emergency Medical Services; Physician Assistant; Emergency Provider Internal Medicine; PCP Nurse Practitioner Family
DX: R53.1 Weakness (principal); E87.6 Hypokalemia; E11.22 Type 2 diabetes mellitus with diabetic chronic kidney disease; I13.0 Hypertensive heart and chronic kidney disease with heart failure and stage 1 through stage 4 chronic kidney disease, or unspecified chronic kidney disease; N18.4 Chronic kidney disease, stage 4 (severe); I50.32 Chronic diastolic (congestive) heart failure; I48.91 Unspecified atrial fibrillation; Z86.73 Personal history of transient ischemic attack (TIA), and cerebral infarction without residual deficits; Z85.46 Personal history of malignant neoplasm of prostate; Z79.01 Long term (current) use of anticoagulants; Z79.4 Long term (current) use of insulin; Z79.899 Other long term (current) drug therapy; Z20.822 Contact with and (suspected) exposure to COVID-19; Z79.02 Long term (current) use of antithrombotics/antiplatelets
CPT/HCPCS: 36415; 71045; 80048; 80053; 82947; 83735; 83880; 84443; 85025; 87635; 93005; 96365; 97162; 99285

== ENCOUNTER 2021-03-26 13:37 | Inpatient (IN) | payer MEDICARE, SELFPAY ==
[2021-03-26] VITALS (7 sets, daily range): BP systolic 99–116; BP diastolic 39–43; PULSE 60–64; RESP 14–21; TEMP 36.5–37.2; O2SAT 98–99; BMI 27.4
--- NOTE | ~2021-03-26 | CT_ITS ---
EXAMINATION: CT HEAD WITHOUT CONTRAST CLINICAL INFORMATION: Confusion COMPARISON: None TECHNIQUE: Contiguous axial imaging was performed from the skull base to vertex without intravenous administration of contrast. This CT examination was performed using dose optimization techniques as appropriate, variously including the following: *Automated exposure control *Adjustment of mA and/or kV according to patient size (this includes techniques or standardized protocols for targeted exams where dose is matched to indication/reason for exam; i.e. extremities or head) *Use of iterative reconstruction technique DLP: 759 mGy-cm FINDINGS: There is no evidence of acute intracranial hemorrhage or territorial infarction. No abnormal mass effect or midline shift is seen. Harmon to white matter differentiation is well preserved. No extra-axial fluid collections are identified. The ventricles are normal in size. Mild volume loss is noted. The osseous structures and soft tissues are normal. The mastoid air cells and visualized portions of the paranasal sinuses are well aerated. CT/CT head/brain wo con IMPRESSION: No acute intracranial pathology.
--- NOTE | ~2021-03-26 | XR_ITS ---
EXAMINATION: XR CHEST CLINICAL INFORMATION: Shortness of breath COMPARISON: 03/17/2021 TECHNIQUE: Frontal view of the chest was obtained. FINDINGS: Left-sided pacemaker lead tips overlie the right atrium and right ventricle. Lung volumes are symmetric. There is mild diffuse interstitial prominence and suggestion of mild bibasilar atelectasis. No evidence of pneumothorax or significant pleural effusion. Cardiac silhouette remains enlarged. Calcification is present at the aortic arch. No acute osseous findings are seen. XR/XR chest 1V IMPRESSION: Mild diffuse interstitial prominence may reflect a degree of vascular congestion. No dense consolidation.
--- NOTE | ~2021-03-26 | XR_ITS ---
EXAMINATION: XR CHEST CLINICAL INFORMATION: Shortness of breath COMPARISON: Previous chest x-ray most recent from earlier the same day TECHNIQUE: Frontal view of the chest was obtained. FINDINGS: The cardiac silhouette is enlarged. There is a left subclavian dual chamber pacemaker in satisfactory position. There is pulmonary venous redistribution and increased bilateral central lung markings. Findings are questionable for mild CHF versus pneumonia. There is no pleural effusion. There is no pneumothorax. XR/XR chest 1V IMPRESSION: Stable enlargement of the cardiac silhouette. Pulmonary venous redistribution and increased perihilar markings questionable for mild pulmonary edema versus pneumonia.
--- NOTE | 2021-03-26 13:49 | ED.GIBLEED ---
HPI - GI Bleed General Chief complaint: General Medical Stated complaint: BLOOD IN STOOL Time Seen by Provider: 03/26/21 13:47 Source: patient, EMS and old records reviewed Mode of arrival: EMS Limitations: no limitations History of Present Illness MD complaint: gross hematochezia Onset (ago): day(s) (2) Pain Consistency: intermittent Severity: similar to previous episodes Relieving factors: none Exacerbating factors: bowel movement Context: history of GI bleed (colon polyps in past has required blood transfusion, has not been on his eliquis for 3 weeks, also off ASA) Associated symptoms: other (diarrhea, weakness) Related Data Home Medications Medication Instructions Recorded Confirmed amiodarone 200 mg tablet 200 mg PO DAILY 05/29/20 03/18/21 omega 3-dla-tgs-fish oil 1,200 mg 1 cap PO DAILY cap 05/29/20 03/18/21 (144 mg-216 mg) capsule (Fish Oil) metoprolol succinate 100 mg 100 mg PO QAM 10/03/20 03/18/21 capsule sprinkle, ext. release 24 hr torsemide 20 mg tablet 20 mg PO BID 10/03/20 03/18/21 polyethylene glycol 3350 17 17 g PO DAILY 12/12/20 03/18/21 gram/dose oral powder (Miralax) insulin degludec 100 unit/mL (3 30 unit SUBCUT DAILY@1700 01/08/21 03/18/21 mL) subcutaneous pen (Tresiba FlexTouch U-100 insulin) Vitamin D3 1,000 mcg PO DAILY 02/09/21 03/18/21 Previous Rx's Medication Instructions Recorded zolpidem 5 mg tablet (Ambien) 5 mg PO BEDTIME PRN #90 tab 05/29/20 omeprazole 20 mg capsule,delayed 20 mg PO DAILY #90 cap 11/13/20 release pen needle, diabetic 31 gauge x #100 ea 02/20/2109/26 (BD Ultra-Fine Mini Pen Needle) rosuvastatin 20 mg tablet 20 mg PO QPM 90 Days #90 tab 02/20/21 vitamin A 10,000 unit capsule 1 cap PO DAILY #28 cap 02/27/21 zinc sulfate 50 mg zinc (220 mg) 50 mg PO BID #60 tab 03/01/21 tablet blood sugar diagnostic (OneTouch #3 03/05/21 Verio test strips) lancets 30 gauge ([employer] Cloud SuperstructureTouch Delica #300 ea 03/05/21 Plus Lancet) Allergies Allergy/AdvReac Type Severity Reaction Status Date / Time No Known Allergies Allergy Verified 03/17/21 17:45 [No Known Allergies*] Review of Systems Review of Systems: Constitutional : No Weight loss, No Fever, No Chills ENT/Mouth : No sore throat, No Rhinorrhea Eyes: No Swelling, No Redness Cardiovascular : No Chest Pain, No SOB, NoEdema Respiratory : No Cough, No Sputum, No Wheezing Gastrointestinal : no Nausea,no Vomiting, positive Diarrhea, no abdominal Pain,pos Hematochezia, No Melena Genitourinary : No Dysuria, No Urinary Frequency, No Hematuria, No Urgency Musculoskeletal : No joint pain, No Myalgias, No Joint Swelling Skin : No Skin Lesions, No rash Neuro : pos Weakness, No Numbness, No Dizziness, No Headache Psych : No Anxiety/Panic, No Depression Heme/Lymph: No Bruising, No Lymphadenopathy Endocrine : No Polyuria, No Polydipsia All other systems reviewed and are negative. [facility] Past Medical History Attestation statement: The following information was validated with the patient. Medical History AAA (abdominal aortic aneurysm) Abdominal aortic aneurysm Atrial fibrillation Chronic kidney disease (CKD) stage G4/A1, severely decreased glomerular filtration rate (GFR) between 15-29 mL/min/1.73 square meter and albuminuria creatinine ratio less than 30 mg/g Congestive heart failure Coronary artery disease History of CVA (cerebrovascular accident) History of prostate cancer Hypercholesterolemia Hypertension Insomnia Legally blind in right eye, as defined in [place] Obesity (BMI 30-39.9) Peripheral vascular disease Renal artery stenosis Retinal detachment Sick sinus syndrome Type 2 diabetes mellitus with hyperglycemia Surgical History H/O colonoscopy H/O esophagogastroduodenoscopy History of cataract surgery History of pacemaker History of prostatectomy History of thumb surgery History of tonsillectomy Hx of cystoscopy Renal calculi Family History Family History Father Heart problem Diabetes Prostate cancer Mother Acute leukemia Social History Social History Household Members: Spouse Housing: [facility] Do you presently have visiting nurse or other home services: Yes Alcohol intake: never Patient Tobacco Use Status: Former Tobacco user Quit Date: 2004 Years Smoked: Cannot remember e-Cigarette/Vaping Use: Never Used Advance Directives: Yes Advance Directives on File: Yes Advance Directives Date on File: 10/06/20 service: Yes Current occupational status: retired Physical Exam Vital Signs: Vital Signs: Last Vital Signs Temp 98.3 F 03/26/21 14:11 Pulse 61 03/26/21 14:11 Resp 15 03/26/21 14:11 BP 116/41 L 03/26/21 14:11 Pulse Ox 98 03/26/21 14:11 Body Mass Index 27.4 Appearance: Alert. Oriented X3. No acute distress. Eyes: Pupils equal, round and reactive to light. ENT: Pharynx normal. Neck: Normal inspection. Neck supple. CVS: Normal heart rate and rhythm. Pulses normal. Respiratory: No respiratory distress. Breath sounds normal. Abdomen: Soft and nontender. Rectal: grossly bloody stool noted on exam Skin: Skin warm and dry. Normal skin color. Normal skin turgor. Extremities: No lower extremity edema. No calf ttp Neuro: Oriented X 3. No motor deficit. No sensory deficit. Course Course Course Narrative: will transfuse he will need admission message to Dr. Snow - aware will follow lactic acidosis and HTN due to chronic kidney disease as well as GIB and not infection or severe sepsis MDM - GI Bleed MDM Narrative Medical decision making narrative: 81 yo male with rectal bleed in past from polyps no longer on eliquis or aspirin, anemia, CKD, HLD, UTI, PAF comes in with 2 days of gross hematochezia no clots no abd pain. He notes 3 episodes today. At this time will need labs, type and screen, likely admission to hospital sees Dr. Sandhu from GI Lab Data Result diagrams: 03/26/21 14:44 03/26/21 14:44 Labs: Lab Results 03/26/21 03/26/21 03/26/21 Range/Units 14:44 14:44 14:44 WBC 4.7 L (4.8-10.8) X10*3/uL RBC 2.14 L D (4.60-5.80) X10*6/uL Hgb 7.3 L D (14.0-18.0) g/dl Hct 21.8 L D (42-52) % MCV 101.9 H (80-98) fL MCH 34.1 H (27.0-33.0) pg MCHC 33.5 (31.0-36.0) g/dl RDW 15.4 (11.0-16.0) % Plt Count 108 L (160-400) X10*3/uL MPV 10.5 (9.4-12.4) fL Immature Gran % (Auto) 0.6 H (0.0-0.4) % Neut % (Auto) 64.5 (45-73) % Lymph % (Auto) 14.4 L (20-40) % [place] % (Auto) 18.1 H (2-11) % Eos % (Auto) 2.2 (0-4) % Baso % (Auto) 0.2 (0-2) % Lymph # (Auto) 0.7 L (1.2-4.9) X10*3/uL [place] # (Auto) 0.8 (0.1-1.2) X10*3/uL Eos # (Auto) 0.1 (0.0-0.4) X10*3/uL Baso # (Auto) 0.0 (0.0-0.2) X10*3/uL Abs Immat Gran (auto) 0.03 (0.00-0.03) X10*3/uL Absolute Neuts (auto) 3.0 (2.0-8.3) X10*3/uL Absolute Nucleated RBC 0.000 (0.0-0.012) X10*3/uL Nucleated RBC % (auto) 0.0 (0.0-0.2) /100WBC PT (9.9-13.0) SEC INR (0.9-1.1) APTT (24.1-38.0) SEC Sodium 136 (135-145) mmol/L Potassium 3.5 (3.3-5.1) mmol/L Chloride 105 (96-108) mmol/L Carbon Dioxide 22 (22-29) mmol/L Anion Gap 13 (12-20) BUN 39 H (9-16) mg/dL Creatinine 3.31 H (0.5-1.4) mg/dL Estim Creat Clear Calc 18.2 Estimated GFR 18 Random Glucose 247 H D (60-115) mg/dL Lactic Acid 2.3 H* (0.5-2.0) mmol/L Calcium 7.8 L (8.4-10.2) mg/dL Magnesium 2.5 (1.6-2.6) mg/dL Total Bilirubin 2.8 H (0.0-1.0) mg/dL Direct Bilirubin 1.8 H (0.0-0.5) mg/dL AST 120 H (5-37) U/L ALT 60 H (0-40) U/L Alkaline Phosphatase 176 H D (39-117) U/L Troponin I High Sens (<3.5-35.0) ng/L B-Natriuretic Peptide (<100) pg/mL Total Protein 5.5 L (6.5-8.0) g/dL Albumin 2.2 L (3.5-5.0) g/dL Lipase 36 (8-78) U/L Stool Occult Blood (NEGATIVE) COVID-19 (NATACHA) (Negative) COVID-19 Clin Com 03/26/21 03/26/21 03/26/21 Range/Units 14:44 14:44 14:44 WBC (4.8-10.8) X10*3/uL RBC (4.60-5.80) X10*6/uL Hgb (14.0-18.0) g/dl Hct (42-52) % MCV (80-98) fL MCH (27.0-33.0) pg MCHC (31.0-36.0) g/dl RDW (11.0-16.0) % Plt Count (160-400) X10*3/uL MPV (9.4-12.4) fL Immature Gran % (Auto) (0.0-0.4) % Neut % (Auto) (45-73) % Lymph % (Auto) (20-40) % [place] % (Auto) (2-11) % Eos % (Auto) (0-4) % Baso % (Auto) (0-2) % Lymph # (Auto) (1.2-4.9) X10*3/uL [place] # (Auto) (0.1-1.2) X10*3/uL Eos # (Auto) (0.0-0.4) X10*3/uL Baso # (Auto) (0.0-0.2) X10*3/uL Abs Immat Gran (auto) (0.00-0.03) X10*3/uL Absolute Neuts (auto) (2.0-8.3) X10*3/uL Absolute Nucleated RBC (0.0-0.012) X10*3/uL Nucleated RBC % (auto) (0.0-0.2) /100WBC PT 15.7 H (9.9-13.0) SEC INR 1.4 H (0.9-1.1) APTT 38.5 H (24.1-38.0) SEC Sodium (135-145) mmol/L Potassium (3.3-5.1) mmol/L Chloride (96-108) mmol/L Carbon Dioxide (22-29) mmol/L Anion Gap (12-20) BUN (9-16) mg/dL Creatinine (0.5-1.4) mg/dL Estim Creat Clear Calc Estimated GFR Random Glucose (60-115) mg/dL Lactic Acid (0.5-2.0) mmol/L Calcium (8.4-10.2) mg/dL Magnesium (1.6-2.6) mg/dL Total Bilirubin (0.0-1.0) mg/dL Direct Bilirubin (0.0-0.5) mg/dL AST (5-37) U/L ALT (0-40) U/L Alkaline Phosphatase (39-117) U/L Troponin I High Sens 23.7 D (<3.5-35.0) ng/L B-Natriuretic Peptide 936 H (<100) pg/mL Total Protein (6.5-8.0) g/dL Albumin (3.5-5.0) g/dL Lipase (8-78) U/L Stool Occult Blood (NEGATIVE) COVID-19 (NATACHA) (Negative) COVID-19 Clin Com 03/26/21 03/26/21 Range/Units 15:01 15:01 WBC (4.8-10.8) X10*3/uL RBC (4.60-5.80) X10*6/uL Hgb (14.0-18.0) g/dl Hct (42-52) % MCV (80-98) fL MCH (27.0-33.0) pg MCHC (31.0-36.0) g/dl RDW (11.0-16.0) % Plt Count (160-400) X10*3/uL MPV (9.4-12.4) fL Immature Gran % (Auto) (0.0-0.4) % Neut % (Auto) (45-73) % Lymph % (Auto) (20-40) % [place] % (Auto) (2-11) % Eos % (Auto) (0-4) % Baso % (Auto) (0-2) % Lymph # (Auto) (1.2-4.9) X10*3/uL [place] # (Auto) (0.1-1.2) X10*3/uL Eos # (Auto) (0.0-0.4) X10*3/uL Baso # (Auto) (0.0-0.2) X10*3/uL Abs Immat Gran (auto) (0.00-0.03) X10*3/uL Absolute Neuts (auto) (2.0-8.3) X10*3/uL Absolute Nucleated RBC (0.0-0.012) X10*3/uL Nucleated RBC % (auto) (0.0-0.2) /100WBC PT (9.9-13.0) SEC INR (0.9-1.1) APTT (24.1-38.0) SEC Sodium (135-145) mmol/L Potassium (3.3-5.1) mmol/L Chloride (96-108) mmol/L Carbon Dioxide (22-29) mmol/L Anion Gap (12-20) BUN (9-16) mg/dL Creatinine (0.5-1.4) mg/dL Estim Creat Clear Calc Estimated GFR Random Glucose (60-115) mg/dL Lactic Acid (0.5-2.0) mmol/L Calcium (8.4-10.2) mg/dL Magnesium (1.6-2.6) mg/dL Total Bilirubin (0.0-1.0) mg/dL Direct Bilirubin (0.0-0.5) mg/dL AST (5-37) U/L ALT (0-40) U/L Alkaline Phosphatase (39-117) U/L Troponin I High Sens (<3.5-35.0) ng/L B-Natriuretic Peptide (<100) pg/mL Total Protein (6.5-8.0) g/dL Albumin (3.5-5.0) g/dL Lipase (8-78) U/L Stool Occult Blood POSITIVE (NEGATIVE) COVID-19 (NATACHA) Negative (Negative) COVID-19 Clin Com See Note ECG Data Attestation: I personally reviewed and interpreted this ECG as follows: ECG interpretation date: 03/26/21 ECG interpretation time: 14:56 Interpretation: Rate: 61 Rhythm: sinus rhythm with 1st degree AV block [place]: left Normal P waves. Normal KARENA. Normal QRS complex. ST T wave : non specific ST depressions in lateral leads qTC: 543 prolonged prior studies: changed from prior 2019 The study has been interpreted contemporaneously by me. . Critical Care Time Critical Care Time Critical Care Time: Yes Total Critical Care Time: 45 Attestation: review of records, medical consult, blood transfusion I attest to this time spent taking care of the patient Discharge Plan Discharge Clinical Impression: Rectal bleed Anemia Qualifiers: Anemia type: other cause Other causes of anemia: acute posthemorrhagic Qualified Code(s): D62 - Acute posthemorrhagic anemia Patient Disposition: Admitted As Inpatient
--- NOTE | 2021-03-26 13:51 | ECG_ITS ---
Test Reason : GIB Blood Pressure : / mmHG Vent. Rate : 061 BPM Atrial Rate : 061 BPM P-R Int : 232 ms QRS Dur : 116 ms QT Int : 540 ms P-R-T Axes : 072 -07 117 degrees QTc Int : 543 ms Sinus rhythm with 1st degree A-V block Left ventricular hypertrophy with QRS widening and repolarization abnormality Prolonged QT Abnormal ECG When compared with ECG of 17-MAR-2021 18:03, T wave inversion no longer evident in Inferior leads T wave inversion now evident in Lateral leads Referred By: Flori Gomez Electronically Signed By:SOCORRO JACKSON
[2021-03-26 14:51] LABS: MANUAL DIFF FLAG NO
[2021-03-26 14:55] LABS: Basophils Percent Auto 0.2 % (0-2); Eosinophils Absolute Auto 0.1 X10*3/uL (0.0-0.4); Eosinophils Percent Auto 2.2 % (0-4); Hematocrit 21.8 % (42-52); Hemoglobin 7.3 g/dl (14.0-18.0); Imm Gran Abs Auto 0.03 X10*3/uL (0.00-0.03); Imm Gran Pct Auto 0.6 % (0.0-0.4); Lymphocytes Absolute Auto 0.7 X10*3/uL (1.2-4.9); Lymphocytes Percent Auto 14.4 % (20-40); Mean Corpuscular HGB Conc 33.5 g/dl (31.0-36.0); Mean Corpuscular Hemoglobin 34.1 pg (27.0-33.0); Mean Corpuscular Volume 101.9 fL (80-98); Mean Platelet Volume 10.5 fL (9.4-12.4); Monocytes Absolute Auto 0.8 X10*3/uL (0.1-1.2); Monocytes Percent Auto 18.1 % (2-11); Neutrophils Percent Auto 64.5 % (45-73); Platelet Count 108 X10*3/uL (160-400); Red Blood Count 2.14 X10*6/uL (4.60-5.80); Red Cell Distribution Width 15.4 % (11.0-16.0); White Blood Count 4.7 X10*3/uL (4.8-10.8)
[2021-03-26] MEDS: 0.9 % Sodium Chloride 500 ML IV (14:58)
[2021-03-26 15:00] LABS: INTERNATIONAL NORM RATIO 1.4 (0.9-1.1); Prothrombin Time 15.7 SEC (9.9-13.0)
[2021-03-26 15:03] LABS: Partial Thromboplastin Time 38.5 SEC (24.1-38.0)
[2021-03-26 15:12] LABS: OBS Int Ctl Valid YES; OBS1 POSITIVE (NEGATIVE)
[2021-03-26 15:14] LABS: B Type Natriuretic Peptide 936 pg/mL (<100); Troponin-I High Sensitivity 23.7 ng/L (<3.5-35.0)
[2021-03-26 15:16] LABS: Alanine Aminotransferase 60 U/L (0-40); Albumin Level 2.2 g/dL (3.5-5.0); Alkaline Phosphatase 176 U/L (39-117); Anion Gap 13 (12-20); Aspartate Amino Transferase 120 U/L (5-37); Bilirubin Direct 1.8 mg/dL (0.0-0.5); Bilirubin Total 2.8 mg/dL (0.0-1.0); Blood Urea Nitrogen 39 mg/dL (9-16); Calcium 7.8 mg/dL (8.4-10.2); Carbon Dioxide 22 mmol/L (22-29); Chloride 105 mmol/L (96-108); Creatinine Clr Calc Pharmacy 18.2; Estimated Glomerular Filt Rate 18; Glucose Random 247 mg/dL (60-115); Lipase 36 U/L (8-78); Magnesium 2.5 mg/dL (1.6-2.6); Potassium 3.5 mmol/L (3.3-5.1); Sodium 136 mmol/L (135-145); Total Protein 5.5 g/dL (6.5-8.0)
[2021-03-26 15:19] LABS: Lactic Acid 2.3 mmol/L (0.5-2.0)
[2021-03-26 15:25] LABS: COVID-19 Test Negative (Negative)
--- NOTE | 2021-03-26 15:32 | PM.GICN ---
History of Present Illness Data of Consult Service Date: 03/26/21 <Kate Snow MD - Last Filed: 10/20/21 15:58> Requesting physician: Flori Gomez <Kate Snow MD - Last Filed: 10/20/21 15:58> Primary Care Provider: ANGELIQUE Ye- <Kate Snow MD - Last Filed: 10/20/21 15:58> HPI Reason for consult: Recurrent acute on chronic anemia <Kate Snow MD - Last Filed: 10/20/21 15:58> 81 YM with AF, DM, HTN, HLP, prostate ca, CVA, CKD, PVD, kidney stones presented to [facility] with 2 day hx of hematochezia: Pain Consistency: intermittent Severity: similar to previous episodes Relieving factors: none Exacerbating factors: bowel movement Context: history of GI bleed (colon polyps in past has required blood transfusion, has not been on his eliquis for 3 weeks, also off ASA) Associated symptoms: other (diarrhea, weakness) Pt reports episodes of hematochezia since 03/22/21 consisting of BRBPR. He denies abdominal or rectal pain. Last episode of hematochezia was yesterday and he reports having a non bloody BM at 9 am today. Patient denies symptoms of heartburn, dysphagia, nausea, vomiting, He admits to wt loss of 5 lbs - base line weight is 180 lbs. Patient has CHF and is status post pacemaker placement for sick sinus syndrome Denies problems with anesthesia in the past. Pt was on a baby aspirin and Eliquis which were discontinued a month ago. Family history is noncontributory due to advanced age. no alcohol intake LABS:H& H of 7.3 & 21.8, (decreased from 9.8 and 29.1 on 03/17/21) Plt 108 Elevated LFTs IMAGING STUDIES: 02/12/21 ABD MRI SHOWED: 1. Hepatic cyst left lobe under 2 cm without significant change in size from CT 05/06/2018. Question fine avascular internal septation. No solid component or enhancement. 2. Sludge in the dependent gallbladder with possible fine gravel-like calculi. No gallbladder wall thickening or ductal dilatation. 3. Mild splenomegaly. No adenopathy or ascites. US 10/2020--sludge in GB, thickened GB wall, complex cyst left lobe of liver, Dilated distal abdominal aorta measuring 3.3 x 3.7 cm similar to previous exam. Enlarged spleen increased in size from previous exam. ENDOSCOPIC STUDIES: 01/11/21 EGD WAS PERFORMED BY DR EVANS: Esophagus: GE junction at 40? cm, diaphragm hiatus at 40 cm, small flat varices without any high risk stigmata noted, mild esophagitis and non obstructive schatzki ring Stomach: Patchy gastric erythema at the antrum consistent with mild gastric antral vascular ectasia (GAVE). Biopsies were obtained. Grade 2 flap valve on retroflexed examination of the cardia. Duodenum: There appear to be some mucosal atrophy, bx taken from bulb and second part of duodenum Impression/Findings: non obstructive schatzki ring esophageal varices esophagitis GAVE PLAN: await bx results, if neg then MRI of liver, possible liver bx 09/2020 EGD & Colon were performed by Dr Larson: EGD was normal, COLONOSCOPY SHOWED: There was a large amount of liquid and formed stool present, limiting the examination for detection of small polyps. This was washed and suctioned as best possible.? Multiple polyps were identified and removed using biopsy forceps and snare cautery.? The largest of these measured approximately 10 mm.? Polyps were located in the cecum at 70 cm, 60 cm, 45 cm, 25 cm and in the rectum.? There was sigmoid diverticulosis. There appeared to be some telangiectasias in the rectum consistent with prior radiation therapy.? Rectal biopsies were obtained.? Retroflexed examination showed internal hemorrhoids.colonoscopy with multiple polyps (TA and one TV polyp), fair prep <Kate Snow MD - Last Filed: 10/20/21 15:58> Review of Systems Constitutional: Constitutional: Denies fever(s), Denies headache(s) and Reports weight loss <Kate Snow MD - Last Filed: 10/20/21 15:58> Eyes: Eyes: Denies eye discharge and Denies irritation <Kate Snow MD - Last Filed: 10/20/21 15:58> ENT: Reports Normal hearing present, Denies dysphagia, Denies dizziness and Denies headache(s) <Kate Snow MD - Last Filed: 10/20/21 15:58> Cardiovascular: Cardiovascular: Denies chest pain, Denies leg edema and Reports dyspnea on exertion <Kate Snow MD - Last Filed: 10/20/21 15:58> Respiratory: Respiratory: Denies cough, Reports dyspnea on exertion and Denies wheezing <Kate Snow MD - Last Filed: 10/20/21 15:58> Gastrointestinal: Gastrointestinal: Denies abdominal pain, Reports hematochezia, Denies change in bowel habits, Denies dysphagia and Denies heartburn <Kate Snow MD - Last Filed: 10/20/21 15:58> Genitourinary: Genitourinary: Denies dysuria <Kate Snow MD - Last Filed: 10/20/21 15:58> Musculoskeletal: Musculoskeletal: Reports back pain and Denies arthralgias <Kate Snow MD - Last Filed: 10/20/21 15:58> Integumentary/Breasts: Skin/Breast: Denies pruritus, Denies rash and Denies jaundice <Kate Snow MD - Last Filed: 10/20/21 15:58> Neurologic: Reports Normal hearing present, Denies Abnormal speech present, Denies dizziness, Denies headache(s) and Denies seizure-like activity <Kate Snow MD - Last Filed: 10/20/21 15:58> Psychiatric: Psychiatric: Denies anxiety, Denies depression and Denies panic attacks <Kate Snow MD - Last Filed: 10/20/21 15:58> Endocrine: Endocrine: Denies cold intolerance, Denies flushing and Denies heat intolerance <Kate Snow MD - Last Filed: 10/20/21 15:58> Hematologic/Lymphatic: Hematologic/Lymphatic: Denies easy bleeding and Denies easy bruising <Kate Snow MD - Last Filed: 10/20/21 15:58> Allergic/Immunologic: Allergic/Immunologic: Denies wheezing <Kate Snow MD - Last Filed: 10/20/21 15:58> PMFSH Past Medical History Medical History: Medical History AAA (abdominal aortic aneurysm) Abdominal aortic aneurysm Atrial fibrillation Chronic kidney disease (CKD) stage G4/A1, severely decreased glomerular filtration rate (GFR) between 15-29 mL/min/1.73 square meter and albuminuria creatinine ratio less than 30 mg/g Congestive heart failure Coronary artery disease History of CVA (cerebrovascular accident) History of prostate cancer Hypercholesterolemia Hypertension Insomnia Legally blind in right eye, as defined in [place] Obesity (BMI 30-39.9) Peripheral vascular disease Renal artery stenosis Retinal detachment Sick sinus syndrome Type 2 diabetes mellitus with hyperglycemia Venous bleed <Kate Snow MD - Last Filed: 10/20/21 15:58> Family History Family History: Family History Father Heart problem Diabetes Prostate cancer Mother Acute leukemia <Kate Snow MD - Last Filed: 10/20/21 15:58> Surgical History Surgical History: Surgical History H/O colonoscopy H/O esophagogastroduodenoscopy History of cataract surgery History of pacemaker History of prostatectomy History of thumb surgery History of tonsillectomy Hx of cystoscopy Renal calculi <Kate Snow MD - Last Filed: 10/20/21 15:58> Social History Social History: Social History Household Members: Other Household Members Other:: SNF Housing: Custodial Do you presently have visiting nurse or other home services: Yes (fromSNF) Alcohol intake: never Patient Tobacco Use Status: Former Tobacco user Quit Date: 2005 Years Smoked: Cannot remember e-Cigarette/Vaping Use: Never Used Second Hand Smoke Exposure: No Use of substances other than those prescribed or required for medical reasons: No Currently Displaying Signs/Symptoms of Drug Intoxication Withdrawal: No Have you been hit, kicked, punched, or otherwise hurt by someone within the past year? If so, by whom?: No Do you feel safe in your current relationship?: Yes Is there a partner from a previous relationship who is making you feel unsafe now?: No Are you made to feel afraid or neglected: No Advance Directives: No Advance Directives Information Provided: No Advance Directives on File: No Advance Directives Date on File: 10/06/20 Do you have thoughts of harming others: None Do you have a plan to hurt others: No Plan Recently lost weight without trying: No How much weight loss: Not applicable Eating poorly because of decreased appetite: No Nutrition screen score: 0 Nutrition Risks: No Nutritional Risk Poor oral hygiene: No service: Yes ([employer] ABOUT [employer]) Current occupational status: retired <Kate Snow MD - Last Filed: 10/20/21 15:58> Meds Allergies/Adverse reactions: Allergies Allergy/AdvReac Type Severity Reaction Status Date / Time No Known Allergies Allergy Verified 03/17/21 17:45 [No Known Allergies*] <Kate Snow MD - Last Filed: 10/20/21 15:58> Home medications: Home Medications Medication Instructions Recorded Confirmed Last Taken Type omega 7-aqi-jbz-fish oil 1,200 mg 1 cap PO DAILY cap 05/29/20 05/18/21 03/17/21 History (144 mg-216 mg) capsule (Fish Oil) torsemide 20 mg tablet 20 mg PO BID 10/03/20 05/18/21 03/17/21 History polyethylene glycol 3350 17 17 g PO DAILY 12/12/20 05/18/21 03/17/21 History gram/dose oral powder (Miralax) insulin degludec 100 unit/mL (3 30 unit SUBCUT DAILY@1700 01/08/21 05/18/21 03/17/21 History mL) subcutaneous pen (Tresiba FlexTouch U-100 insulin) acetaminophen 325 mg tablet 650 mg PO Q4H PRN 03/26/21 05/18/21 Unknown History cetirizine 5 mg tablet 5 mg PO BEDTIME 03/26/21 05/18/21 Unknown History cholecalciferol (vitamin D3) 25 25 mcg PO DAILY 03/26/21 05/18/21 Unknown History mcg (1,000 unit) tablet docusate sodium 100 mg capsule 100 mg PO DAILY 04/28/21 05/18/21 Unknown History (Colace) hydrocortisone 2.5 % topical cream 1 appl [place] BID 04/28/21 05/19/21 Unknown History with perineal applicator (Procto-Med HC) omeprazole 20 mg capsule,delayed 40 mg PO DAILY 04/28/21 05/18/21 Unknown History release zinc sulfate 220 mg capsule 220 mg PO DAILY 04/28/21 05/19/21 Unknown History <Kate Snow MD - Last Filed: 10/20/21 15:58> Physical Exam Vital Signs: Vital Signs: Last Vital Signs Temp 98.3 F 03/26/21 14:11 Pulse 61 03/26/21 14:11 Resp 15 03/26/21 14:11 BP 116/41 L 03/26/21 14:11 Pulse Ox 98 03/26/21 14:11 Body Mass Index 27.4 <Kate Snow MD - Last Filed: 10/20/21 15:58> Const: General: no acute distress and ill appearing <Kate Snow MD - Last Filed: 10/20/21 15:58> Nutritional Appearance: overweight <Kate Snow MD - Last Filed: 10/20/21 15:58> Orientation/consciousness: patient oriented x3 <Kate Snow MD - Last Filed: 10/20/21 15:58> Limitations: no limitations <Kate Snow MD - Last Filed: 10/20/21 15:58> HENMT: Head: Yes normal to inspection <Kate Snow MD - Last Filed: 10/20/21 15:58> Ears: hearing grossly normal bilaterally <Kate Snow MD - Last Filed: 10/20/21 15:58> Mouth: Normal oral and palatal mucosa present <Kate Snow MD - Last Filed: 10/20/21 15:58> Eyes: Sclerae: sclerae normal <Kate Snow MD - Last Filed: 10/20/21 15:58> Pupils: Equal, round and reactive pupils present <Kate Snow MD - Last Filed: 10/20/21 15:58> Neck: Neck: Yes normal visual inspection <Kate Snow MD - Last Filed: 10/20/21 15:58> Chest: Chest palpation & inspection: normal inspection of the chest <Kate Snow MD - Last Filed: 10/20/21 15:58> Resp: Effort & Inspection: normal respiratory effort <Kate Snow MD - Last Filed: 10/20/21 15:58> Auscultation: clear to auscultation bilaterally <Kate Snow MD - Last Filed: 10/20/21 15:58> Cardio: Palpation: normal PMI <Kate Snow MD - Last Filed: 10/20/21 15:58> Rate: regular rate <Kate Snow MD - Last Filed: 10/20/21 15:58> Rhythm: regular rhythm <Kate Snow MD - Last Filed: 10/20/21 15:58> Heart sounds: S1 normal heart sound present, S2 normal heart sound present and no murmurs <Kate Snow MD - Last Filed: 10/20/21 15:58> GI: Palpation (GI): Soft to palpation, nontender and No hepatosplenomegaly present <Kate Snow MD - Last Filed: 10/20/21 15:58> Auscultation: normal bowel sounds <Kate Snow MD - Last Filed: 10/20/21 15:58> Rectal Exam - Male: Yes deferred <Kate Snow MD - Last Filed: 10/20/21 15:58> Skin: General skin exam: no rashes or lesions noted <Kate Snow MD - Last Filed: 10/20/21 15:58> Neuro: General: patient oriented x3, gait normal and moves all extremities <Kate Snow MD - Last Filed: 10/20/21 15:58> Cranial nerves: Yes Equal, round and reactive pupils present and Yes Normal hearing present <Kate Snow MD - Last Filed: 10/20/21 15:58> Speech: No Abnormal speech present <Kate Snow MD - Last Filed: 10/20/21 15:58> Extrem: General: Yes pedal edema (Trace pitting edema bilaterally) and Yes other (Changes of stasis dermatitis on both lower extremities.) <Kate Snow MD - Last Filed: 10/20/21 15:58> Psych: Appearance: grossly normal <Kate Snow MD - Last Filed: 10/20/21 15:58> Mental Status: mental status grossly normal <Kate Snow MD - Last Filed: 10/20/21 15:58> Results Labs CBC & Chem 7: : 04/11/21 06:16 04/12/21 05:55 <Kate Snow MD - Last Filed: 10/20/21 15:58> Labs: Short CBC 03/26/21 Range/Units 14:44 WBC 4.7 L (4.8-10.8) X10*3/uL Hgb 7.3 L D (14.0-18.0) g/dl Hct 21.8 L D (42-52) % Plt Count 108 L (160-400) X10*3/uL BMP 03/26/21 14:44 Sodium 136 Potassium 3.5 Chloride 105 Carbon Dioxide 22 BUN 39 H Creatinine 3.31 H Calcium 7.8 L Liver Function 03/26/21 Range/Units 14:44 Total Bilirubin 2.8 H (0.0-1.0) mg/dL Direct Bilirubin 1.8 H (0.0-0.5) mg/dL AST 120 H (5-37) U/L ALT 60 H (0-40) U/L Alkaline Phosphatase 176 H D (39-117) U/L Albumin 2.2 L (3.5-5.0) g/dL <Kate Snow MD - Last Filed: 10/20/21 15:58> Assessment and Plan (1) Anemia: Qualifiers: Anemia type: other cause Other causes of anemia: acute posthemorrhagic Qualified Code(s): D62 - Acute posthemorrhagic anemia <Kate Snow MD - Last Filed: 10/20/21 15:58> Status: Acute <Kate Snow MD - Last Filed: 10/20/21 15:58> (2) Rectal bleed: Status: Acute <Kate Snow MD - Last Filed: 10/20/21 15:58> (3) Elevated liver enzymes: Status: Acute <Kate Snow MD - Last Filed: 10/20/21 15:58> Plan 81 YM with AF, DM, HTN, HLP, prostate ca, CVA, CKD, PVD, kidney stones presented to [facility] with 2 day hx of hematochezia and recurrent acute on chronic anemia. Past evaluation with EGD showed early esophageal varices and GAVE. Colonoscopy - multiple colon polyps were removed and rectal telangiectasias noted suggestive of radiation proctitis. Suspect recurrent hematochezia/anemia is likely from radiation proctitis or missed polyp due to sub optimal prep during previous colonoscopy Etiology for elevated LFTs is unclear, pt has a positive DIRK - ratliff is in progress by Dr Evans (pt's primary GI) RECOMMENDATIONS: 1. Monitor H & H post blood transfusion 2. Start on a clear liquid diet and Colyte prep tomorrow afternoon for repeat Colonoscopy on 03/28/[address] Evans 3. If no source for anemia is found on repeat colon, he will likely need a Capsule Endoscopy. <Kate Snow MD - Last Filed: 10/20/21 15:58> Procedures Date of Service Date of Service: 03/26/21 <Kate Snow MD - Last Filed: 10/20/21 15:58>
[2021-03-26 16:51] LABS: Reflex Lactate? Lactic Acid Added
--- NOTE | 2021-03-26 16:58 | P.HPHOSP_ITS ---
History of Present Illness Date of Service: 03/26/21 <Irasema Moya NP - Last Filed: 03/26/21 18:15> 81-year-old man presenting to the ER with blood in his stools over the l ast 2 days. He denied abdominal pain, nausea, vomiting, chest pain, shortness of breath. He has history of GI bleed in the past With history of polyps. He also has a history of atrial fibrillation had been on Eliquis and aspirin but had stopped approximately 3 weeks ago. He reports 3 episodes of hematochezia. 1 unit of packed red blood cells was ordered. He has remained hemodynamically stable. He has a history of chronic kidney disease and chronic transaminitis. BNP is elevated 936 however he does not appear to be in fluid overload. <Irasema Moya NP - Last Filed: 03/26/21 18:15> Review of Systems Review of Systems: Denies any recent fever chills or decrease in appetite respiratory denies any shortness of breath coverage production cardiovascular is adjustment of any PND or edema gastrointestinal denies any dysphagia abdominal pain nausea vomiting or delmy rrhea genitourinary denies any dysuria frequency or hematuria musculoskeletal denies any joint pain or swelling neuropsych denies any weakness or seizures all other systems reviewed are negative <Irasema Moya NP - Last Filed: 03/26/21 18:15> [facility] Medical History: Medical History AAA (abdominal aortic aneurysm) Abdominal aortic aneurysm Atrial fibrillation Chronic kidney disease (CKD) stage G4/A1, severely decreased glomerular filtration rate (GFR) between 15-29 mL/min/1.73 square meter and albuminuria creatinine ratio less than 30 mg/g Congestive heart failure Coronary artery disease History of CVA (cerebrovascular accident) History of prostate cancer Hypercholesterolemia Hypertension Insomnia Legally blind in right eye, as defined in [place] Obesity (BMI 30-39.9) Peripheral vascular disease Renal artery stenosis Retinal detachment Sick sinus syndrome Type 2 diabetes mellitus with hyperglycemia <Irasema Moya NP - Last Filed: 03/26/21 18:15> Family History: Family History Father Heart problem Diabetes Prostate cancer Mother Acute leukemia <Irasema Moya NP - Last Filed: 03/26/21 18:15> Surgical History: Surgical History H/O colonoscopy H/O esophagogastroduodenoscopy History of cataract surgery History of pacemaker History of prostatectomy History of thumb surgery History of tonsillectomy Hx of cystoscopy Renal calculi <Irasema Moya NP - Last Filed: 03/26/21 18:15> Social History: Social History Household Members: Other Housing: Skilled Nursing Do you presently have visiting nurse or other home services: No Alcohol intake: never Patient Tobacco Use Status: Former Tobacco user Quit Date: 2004 Years Smoked: Cannot remember e-Cigarette/Vaping Use: Never Used Use of substances other than those prescribed or required for medical reasons: No Have you been hit, kicked, punched, or otherwise hurt by someone within the past year? If so, by whom?: No Do you feel safe in your current relationship?: Yes Is there a partner from a previous relationship who is making you feel unsafe now?: No Are you made to feel afraid or neglected: No Advance Directives: Yes Advance Directives on File: Yes Advance Directives Date on File: 10/06/20 Do you have thoughts of harming others: None Do you have a plan to hurt others: No Plan Recently lost weight without trying: Yes How much weight loss: Unsure Eating poorly because of decreased appetite: Yes Nutrition screen score: 5 Nutrition Risks: No Nutritional Risk service: Yes Current occupational status: retired <Irasema Moya NP - Last Filed: 03/26/21 18:15> Meds Allergies/Adverse reactions: Allergies Allergy/AdvReac Type Severity Reaction Status Date / Time No Known Allergies Allergy Verified 03/17/21 17:45 [No Known Allergies*] <Irasema Moya NP - Last Filed: 03/26/21 18:15> Home medications: Home Medications Medication Instructions Recorded Confirmed Last Taken Type amiodarone 200 mg tablet 200 mg PO DAILY 05/29/20 03/26/21 03/17/21 History omega 3-avi-yyn-fish oil 1,200 mg 1 cap PO DAILY cap 05/29/20 03/26/21 03/17/21 History (144 mg-216 mg) capsule (Fish Oil) torsemide 20 mg tablet 20 mg PO BID 10/03/20 03/26/21 03/17/21 History polyethylene glycol 3350 17 17 g PO DAILY 12/12/20 03/26/21 03/17/21 History gram/dose oral powder (Miralax) insulin degludec 100 unit/mL (3 30 unit SUBCUT DAILY@1700 01/08/21 03/26/21 03/17/21 History mL) subcutaneous pen (Tresiba FlexTouch U-100 insulin) acetaminophen 325 mg tablet 650 mg PO Q4H PRN 03/26/21 03/26/21 Unknown History cephalexin 500 mg capsule 500 mg PO BID 03/26/21 03/26/21 Unknown History cetirizine 5 mg tablet 5 mg PO BEDTIME 03/26/21 03/26/21 Unknown History cholecalciferol (vitamin D3) 25 25 mcg PO DAILY 03/26/21 03/26/21 Unknown Histor y mcg (1,000 unit) tablet dextrose 40 % oral gel (Glucose 10 g PO Q15M PRN 03/26/21 03/26/21 Unknown History Gel) hydrocortisone 2.5 % topical cream 1 appl ME DAILY PRN 03/26/21 03/26/21 Unknown History with perineal applicator (Procto-Med HC) linagliptin 5 mg tablet (Tradjenta) 1 tab PO DAILY 03/26/21 03/26/21 Unknown History metoprolol succinate 100 mg 100 mg PO DAILY 03/26/21 03/26/21 Unknown History tablet,extended release 24 hr <Irasema Moya NP - Last Filed: 03/26/21 18:15> Physical Exam Vital Signs and Narrative: Vital Signs: Last Vital Signs Temp 98.3 F 03/26/21 14:11 Pulse 64 03/26/21 16:17 Resp 18 03/26/21 16:17 BP 111/42 L 03/26/21 16:17 Pulse Ox 98 03/26/21 16:17 Body Mass Index 27.4 <Irasema Moya NP - Last Filed: 03/26/21 18:15> Appearing in no acute distress head is normocephalic atraumatic eyes pupils are PERRLA sclera is anicteric mouth throat mucous membranes are intact and moist neck is supple no lymphadenopathy, no JVD noted lung sounds are clear to auscultation heart regular rate rhythm, clear S1, S2 positive bowel sounds, abdomen is soft, nontender neuro patient is alert x3, no focal deficits <Irasema Moya NP - Last Filed: 03/26/21 18:15> Results Labs CBC and Chem 7: : 03/27/21 06:16 03/27/21 06:16 <Irasema Moya [employer] - Last Filed: 03/26/21 18:15> Labs: Laboratory Results - last 24 hr 03/26/21 03/26/21 03/26/21 14:44 14:44 14:44 MCV 101.9 H MCH 34.1 H MCHC 33.5 RDW 15.4 Plt Count 108 L MPV 10.5 Immature Gran % (Auto) 0.6 H Neut % (Auto) 64.5 Lymph % (Auto) 14.4 L [place] % (Auto) 18.1 H Eos % (Auto) 2.2 Baso % (Auto) 0.2 Lymph # (Auto) 0.7 L [place] # (Auto) 0.8 Eos # (Auto) 0.1 Baso # (Auto) 0.0 Abs Immat Gran (auto) 0.03 Absolute Neuts (auto) 3.0 Absolute Nucleated RBC 0.000 Nucleated RBC % (auto) 0.0 PT INR APTT Anion Gap 13 Estim Creat Clear Calc 18.2 Estimated GFR 18 Random Glucose 247 H D Lactic Acid 2.3 H* Calcium 7.8 L Magnesium 2.5 Total Bilirubin 2.8 H Direct Bilirubin 1.8 H AST 120 H ALT 60 H Alkaline Phosphatase 176 H D Troponin I High Sens B-Natriuretic Peptide Total Protein 5.5 L Albumin 2.2 L Lipase 36 Stool Occult Blood COVID-19 (NATACHA) COVID-19 Clin Com 03/26/21 03/26/21 03/26/21 14:44 14:44 14:44 MCV MCH MCHC RDW Plt Count MPV Immature Gran % (Auto) Neut % (Auto) Lymph % (Auto) [place] % (Auto) Eos % (Auto) Baso % (Auto) Lymph # (Auto) [place] # (Auto) Eos # (Auto) Baso # (Auto) Abs Immat Gran (auto) Absolute Neuts (auto) Absolute Nucleated RBC Nucleated RBC % (auto) PT 15.7 H INR 1.4 H APTT 38.5 H Anion Gap Estim Creat Clear Calc Estimated GFR Random Glucose Lactic Acid Calcium Magnesium Total Bilirubin Direct Bilirubin AST ALT Alkaline Phosphatase Troponin I High Sens 23.7 D B-Natriuretic Peptide 936 H Total Protein Albumin Lipase Stool Occult Blood COVID-19 (NATACHA) COVID-19 Clin Com 03/26/21 03/26/21 15:01 15:01 MCV MCH MCHC RDW Plt Count MPV Immature Gran % (Auto) Neut % (Auto) Lymph % (Auto) [place] % (Auto) Eos % (Auto) Baso % (Auto) Lymph # (Auto) [place] # (Auto) Eos # (Auto) Baso # (Auto) Abs Immat Gran (auto) Absolute Neuts (auto) Absolute Nucleated RBC Nucleated RBC % (auto) PT INR APTT Anion Gap Estim Creat Clear Calc Estimated GFR Random Glucose Lactic Acid Calcium Magnesium Total Bilirubin Direct Bilirubin AST ALT Alkaline Phosphatase Troponin I High Sens B-Natriuretic Peptide Total Protein Albumin Lipase Stool Occult Blood POSITIVE COVID-19 (NATACHA) Negative COVID-19 Clin Com See Note <Irasema Moay NP - Last Filed: 03/26/21 18:15> Assessment and Plan (1) Anemia: Qualifiers: Anemia type: other cause Other causes of anemia: acute posthemorrhagic Qualified Code(s): D62 - Acute posthemorrhagic anemia <Irasema Moya NP - Last Filed: 03/26/21 18:15> Status: Acute <Irasema Moya NP - Last Filed: 03/26/21 18:15> 81-year-old man admitted with GI bleed. GI bleed. Hematochezia at home History of esophageal varices HH 7.3/21.8 1 unit packed red blood cells ordered Check H and H post transfusion clear diet, prep tomorrow for colo on 03/28 PPI GI following CKD. Mildly elevated Follow closely Transfuse Transaminitis. Has been elevated for several months. Abdominal MRI in February showed hepatic cyst similar to previous imaging Atrial fibrillation. Controlled Hold anticoagulation Continue amiodarone Diabetes mellitus Sliding scale, clear liquid diet DVT prophylaxis with early ambulation, scd boots Attending Dr. Gutierrez <Irasema Moya NP - Last Filed: 03/26/21 18:15> 81-year-old man admitted with GI bleed. GI bleed. Hematochezia at home History of esophageal varices HH 7.3/21.8 1 unit packed red blood cells ordered Check H and H post transfusion clear diet, prep tomorrow for colo on 03/28 PPI GI following CKD. Mildly elevated Follow closely Transfuse Transaminitis. Has been elevated for several months. Abdominal MRI in February showed hepatic cyst similar to previous imaging Atrial fibrillation. Controlled Hold anticoagulation Continue amiodarone Diabetes mellitus Sliding scale, clear liquid diet DVT prophylaxis with early ambulation, scd boots Attending Dr. Gutierrez Attending Attestation: Patient seen and examined independently on 03/26/2021. I was present during devi portion of E/M service. Agree with Sary Moya NP's history, physical, ass essment, and plan. 81 yo being admitted for hematochezia. Has history of colonic polyps and esophag eal varices. Being transfused and will need GI work up <Rahul Gutierrez MD - Last Filed: 03/27/21 08:07> Quality Stroke Does the patient have a stroke diagnosis?: No <Irasema Moya NP - Last Filed: 03/26/21 18:15> VTE Prior VTE?: No <Irasema Moya NP - Last Filed: 03/26/21 18:15> VTE Risk Level:: Medical - moderate - high <Irasema Moya NP - Last Filed: 03/26/21 18:15> VTE Device Contraindication: N/A - Device Ordered <Irasema Moya NP - Last Filed: 03/26/21 18:15> VTE Drug Contraindication: Treatment Not Indicated <Irasema Moya NP - Last Filed: 03/26/21 18:15>
[2021-03-26 18:53] LABS: Appearance Urine CLEAR; Color Urine YELLOW; Glucose Urine UA NEG (NEG); Leukocyte Esterase Urine NEG (NEG); Nitrite Urine NEG (NEG); Specific Gravity - Urine 1.025 (1.005-1.025); UACC Culture Trigger NO; Urine Blood 2+ (NEG); Urine Ketones NEG (NEG); Urine Protein 1+ MG/DL (NEG-TRACE)
[2021-03-26 19:27] LABS: RBC Urine 0-2 /HPF (0); WBC Urine 0-2 /HPF (0-4)
[2021-03-26 19:28] LABS: Bacteria Urine TRACE /LPF; Granular Casts Urine 0-2 /LPF; Mucus Urine TRACE /LPF; Squamous Epithelial Cell Urine TRACE /LPF
[2021-03-26 21:27] LABS: Glucose, Whole Blood 188 mg/dL (60-115)
[2021-03-27] VITALS (8 sets, daily range): BP systolic 106–151; BP diastolic 40–66; PULSE 60–65; RESP 14–20; TEMP 36.2–37.3; O2SAT 96–99; BMI 28.3
--- NOTE | 2021-03-27 00:11 | PC.NURSE ---
Pt a&O, no sob or chest pain. Pt reports being weak and tired. Report given to receiving units.
[2021-03-27] MEDS: 0.9 % Sodium Chloride Flush 3 ML SYRINGE IVFLUSH ×4 (01:02→20:34)
[2021-03-27 06:58] LABS: MANUAL DIFF FLAG NO
[2021-03-27 07:14] LABS: Basophils Percent Auto 0.4 % (0-2); Eosinophils Absolute Auto 0.1 X10*3/uL (0.0-0.4); Eosinophils Percent Auto 2.1 % (0-4); Hematocrit 24.2 % (42-52); Imm Gran Abs Auto 0.03 X10*3/uL (0.00-0.03); Imm Gran Pct Auto 0.6 % (0.0-0.4); Lymphocytes Absolute Auto 0.8 X10*3/uL (1.2-4.9); Lymphocytes Percent Auto 17.1 % (20-40); Mean Corpuscular HGB Conc 33.1 g/dl (31.0-36.0); Mean Corpuscular Hemoglobin 32.7 pg (27.0-33.0); Mean Corpuscular Volume 98.8 fL (80-98); Mean Platelet Volume 10.6 fL (9.4-12.4); Monocytes Absolute Auto 0.7 X10*3/uL (0.1-1.2); Monocytes Percent Auto 14.8 % (2-11); Neutrophils Absolute Auto 3.1 X10*3/uL (2.0-8.3); Platelet Count 104 X10*3/uL (160-400); Red Blood Count 2.45 X10*6/uL (4.60-5.80); Red Cell Distribution Width 17.6 % (11.0-16.0); White Blood Count 4.8 X10*3/uL (4.8-10.8)
[2021-03-27 07:49] LABS: Anion Gap 11 (12-20); Blood Urea Nitrogen 37 mg/dL (9-16); Calcium 7.8 mg/dL (8.4-10.2); Carbon Dioxide 22 mmol/L (22-29); Chloride 108 mmol/L (96-108); Creatinine Clr Calc Pharmacy 21.5; Estimated Glomerular Filt Rate 22; Glucose Random 120 mg/dL (60-115); Potassium 3.6 mmol/L (3.3-5.1); Sodium 137 mmol/L (135-145)
[2021-03-27 09:46] LABS: Alanine Aminotransferase 51 U/L (0-40); Albumin Level 2.1 g/dL (3.5-5.0); Alkaline Phosphatase 150 U/L (39-117); Aspartate Amino Transferase 103 U/L (5-37); Bilirubin Direct 3.8 mg/dL (0.0-0.5); Total Protein 5.4 g/dL (6.5-8.0)
--- NOTE | 2021-03-27 10:41 | MHC.CM.PN ---
CM MET WITH PT WHO REPORTS HE LIVES AT HOME WITH HIS AND IS INDEPENDENT WITH ADLS. PT REPORTS HE USES A [employer] AND CURRENTLY HAS NO SERVICES. PT REPORTS HE HAD A VNA AFTER HIS LAST HOSPITAL DC A COUPLE MONTHS AGO, BUT DID NOT FIND THEM TO HE HELPFUL. PT REPORTS HIS PCP IS NANDO CHASE AND SAYS HE HAS A HCP PT REPORTS HE WAS DRIVING UP UNTIL AUGUST BUT STOPPED BECAUSE HIS REACTION TIMES BECAME TOO SLOW. PT REPORTS HIS CONTINUES TO DRIVE AND CAN TAKE HIM TO APPOINTMENTS CURRENT DC PLAN IS HOME WITH NO SERVICES PTS WILL TRANSPORT
--- NOTE | 2021-03-27 11:31 | PC.NURSE ---
Skin Assessment completed today. Patient's skin is jaundice with no open areas. No pressure areas noted at this time.
--- NOTE | 2021-03-27 11:55 | PM.IMPN ---
Progress Note: A&P (1) Anemia: Status: Acute (2) Rectal bleed: Status: Acute (3) Chronic kidney disease (CKD) stage G4/A1, severely decreased glomerular filtration rate (GFR) between 15-29 mL/min/1.73 square meter and albuminuria creatinine ratio less than 30 mg/g: Status: Acute Assessment and Plan: 81-year-old man admitted with GI bleed. GI bleed.? Hematochezia at home History of esophageal varices clear diet, prep tomorrow for colo on 03/28 PPI 2 espiodes of bloody stool this morning, repeat HH GI following Transaminitis.? Has been elevated for several months. Bili 8.0 today Do hemolysis workup consult heme Abdominal MRI in February showed hepatic cyst similar to previous CKD.? Mildly elevated Follow closely Transfuse Atrial fibrillation.? Controlled Hold anticoagulation Continue amiodarone Diabetes mellitus Sliding scale, clear liquid diet DVT prophylaxis with early ambulation, scd boots Attending Dr. Gutierrez Subjective Subjective Date of Service: 03/27/21 Review of Systems Follow up GI bleed Two more episodes of bleeding this morning Elevated bilirubin, noted jaundice Denies chest pain, shortness of breath, abdominal pain, nausea, vomiting, diarrhea All other systems are reviewed and are negative Physical Exam Vital Signs: Vital Signs: Last Vital Signs Temp 99.1 F 03/27/21 11:24 Pulse 61 03/27/21 11:24 Resp 18 03/27/21 11:24 BP 119/53 L 03/27/21 11:24 Pulse Ox 97 03/27/21 11:24 Body Mass Index 28.3 Appearing in no acute distress jaundice, sclera is icteric lung sounds are clear to auscultation heart regular rate rhythm, clear S1, S2 positive bowel sounds, abdomen is soft, nontender neuro patient is alert x3, no focal deficits Objective Data Current Medications Generic Name Dose Route Start Last Admin Trade Name Freq PRN Reason Stop Dose Admin Acetaminophen 650 mg 03/26/21 17:15 Acetaminophen 325 Mg Tablet PO Q6H PRN Pain, Mild (Pain Scale 1-3) Bisacodyl 10 mg 03/27/21 13:00 Bisacodyl [address] SALAZAR 03/27/21 13:01 ONCE ONE Pharmacy Consult 1 each 03/26/21 17:17 Consult Rx Perform Med Rec MISCELLANE ONCE PRN Consult order Polyethylene Glycol/Electrolytes 4,000 ml 03/27/21 14:00 Peg 3350/Na Sulf,Bicarb,Cl/Kcl 4,000 Ml Soln.Recon PO 03/27/21 14:01 ONCE ONE Sodium Chloride 3 ml 03/27/21 00:00 03/27/21 09:09 0.9 % Sodium Chloride Flush 3 Ml Syringe IVFLUSH 3 ml QSHIFT JEANETTE Administration Labs CBC & Chem 7: 03/27/21 06:16 03/27/21 06:16 Labs: Laboratory Results - last 24 hr 03/26/21 03/26/21 03/26/21 14:44 14:44 14:44 MCV 101.9 H MCH 34.1 H MCHC 33.5 RDW 15.4 Plt Count 108 L MPV 10.5 Immature Gran % (Auto) 0.6 H Neut % (Auto) 64.5 Lymph % (Auto) 14.4 L [place] % (Auto) 18.1 H Eos % (Auto) 2.2 Baso % (Auto) 0.2 Lymph # (Auto) 0.7 L [place] # (Auto) 0.8 Eos # (Auto) 0.1 Baso # (Auto) 0.0 Abs Immat Gran (auto) 0.03 Absolute Neuts (auto) 3.0 Absolute Nucleated RBC 0.000 Nucleated RBC % (auto) 0.0 PT INR APTT Anion Gap 13 Creatinine 3.31 H Estim Creat Clear Calc 18.2 Estimated GFR 18 POC Glucose Random Glucose 247 H D Lactic Acid 2.3 H* Lactic Acid Fup @ 2Hr Calcium 7.8 L Magnesium 2.5 Total Bilirubin 2.8 H Direct Bilirubin 1.8 H AST 120 H ALT 60 H Alkaline Phosphatase 176 H D Troponin I High Sens B-Natriuretic Peptide Total Protein 5.5 L Albumin 2.2 L Lipase 36 Urine Color Urine Appearance Urine pH Ur Specific [place] Urine Protein Urine Glucose (UA) Urine Ketones Urine Blood Urine Nitrite Ur Leukocyte Esterase Urine RBC Urine WBC Ur Squamous Epith Cells Urine Bacteria Granular Casts Urine Mucus Stool Occult Blood COVID-19 (NATACHA) COVID-19 Clin Com Blood Type Antibody Screen Crossmatch 03/26/21 03/26/21 03/26/21 14:44 14:44 14:44 MCV MCH MCHC RDW Plt Count MPV Immature Gran % (Auto) Neut % (Auto) Lymph % (Auto) [place] % (Auto) Eos % (Auto) Baso % (Auto) Lymph # (Auto) [place] # (Auto) Eos # (Auto) Baso # (Auto) Abs Immat Gran (auto) Absolute Neuts (auto) Absolute Nucleated RBC Nucleated RBC % (auto) PT 15.7 H INR 1.4 H APTT 38.5 H Anion Gap Creatinine Estim Creat Clear Calc Estimated GFR POC Glucose Random Glucose Lactic Acid Lactic Acid Fup @ 2Hr Calcium Magnesium Total Bilirubin Direct Bilirubin AST ALT Alkaline Phosphatase Troponin I High Sens 23.7 D B-Natriuretic Peptide 936 H Total Protein Albumin Lipase Urine Color Urine Appearance Urine pH Ur Specific [place] Urine Protein Urine Glucose (UA) Urine Ketones Urine Blood Urine Nitrite Ur Leukocyte Esterase Urine RBC Urine WBC Ur Squamous Epith Cells Urine Bacteria Granular Casts Urine Mucus Stool Occult Blood COVID-19 (NATACHA) BaiheIDSpectafy Blood Type Antibody Screen Crossmatch 03/26/21 03/26/21 03/26/21 15:01 15:01 16:34 MCV MCH MCHC RDW Plt Count MPV Immature Gran % (Auto) Neut % (Auto) Lymph % (Auto) [place] % (Auto) Eos % (Auto) Baso % (Auto) Lymph # (Auto) [place] # (Auto) Eos # (Auto) Baso # (Auto) Abs Immat Gran (auto) Absolute Neuts (auto) Absolute Nucleated RBC Nucleated RBC % (auto) PT INR APTT Anion Gap Creatinine Estim Creat Clear Calc Estimated GFR POC Glucose 188 H Random Glucose Lactic Acid Lactic Acid Fup @ 2Hr Calcium Magnesium Total Bilirubin Direct Bilirubin AST ALT Alkaline Phosphatase Troponin I High Sens B-Natriuretic Peptide Total Protein Albumin Lipase Urine Color Urine Appearance Urine pH Ur Specific [place] Urine Protein Urine Glucose (UA) Urine Ketones Urine Blood Urine Nitrite Ur Leukocyte Esterase Urine RBC Urine WBC Ur Squamous Epith Cells Urine Bacteria Granular Casts Urine Mucus Stool Occult Blood POSITIVE COVID-19 (NATACHA) Negative COVID-[employer] [facility] See Note Blood Type Antibody Screen Crossmatch 03/26/21 03/26/21 03/26/21 17:25 17:25 18:32 MCV MCH MCHC RDW Plt Count MPV Immature Gran % (Auto) Neut % (Auto) Lymph % (Auto) [place] % (Auto) Eos % (Auto) Baso % (Auto) Lymph # (Auto) [place] # (Auto) Eos # (Auto) Baso # (Auto) Abs Immat Gran (auto) Absolute Neuts (auto) Absolute Nucleated RBC Nucleated RBC % (auto) PT INR APTT Anion Gap Creatinine Estim Creat Clear Calc Estimated GFR POC Glucose Random Glucose Lactic Acid Lactic Acid Fup @ 2Hr 2.0 Calcium Magnesium Total Bilirubin Direct Bilirubin AST ALT Alkaline Phosphatase Troponin I High Sens B-Natriuretic Peptide Total Protein Albumin Lipase Urine Color YELLOW Urine Appearance CLEAR Urine pH 6.0 Ur Specific [place] 1.025 Urine Protein 1+ H Urine Glucose (UA) NEG Urine Ketones NEG Urine Blood 2+ H Urine Nitrite NEG Ur Leukocyte Esterase NEG Urine RBC 0-2 Urine WBC 0-2 Ur Squamous Epith Cells TRACE Urine Bacteria TRACE Granular Casts 0-2 Urine Mucus TRACE Stool Occult Blood COVID-19 (NATACHA) COVID-Hyperoptic Com Blood Type O Negative Antibody Screen NEGATIVE Crossmatch See Detail 03/27/21 03/27/21 06:16 06:16 MCV 98.8 H MCH 32.7 MCHC 33.1 RDW 17.6 H Plt Count 104 L MPV 10.6 Immature Gran % (Auto) 0.6 H Neut % (Auto) 65.0 Lymph % (Auto) 17.1 L [place] % (Auto) 14.8 H Eos % (Auto) 2.1 Baso % (Auto) 0.4 Lymph # (Auto) 0.8 L [place] # (Auto) 0.7 Eos # (Auto) 0.1 Baso # (Auto) 0.0 Abs Immat Gran (auto) 0.03 Absolute Neuts (auto) 3.1 Absolute Nucleated RBC 0.000 Nucleated RBC % (auto) 0.0 PT INR APTT Anion Gap 11 L Creatinine 2.85 H Estim Creat Clear Calc 21.5 Estimated GFR 22 POC Glucose Random Glucose 120 H D Lactic Acid Lactic Acid Fup @ 2Hr Calcium 7.8 L Magnesium Total Bilirubin 8.0 H Direct Bilirubin 3.8 H AST 103 H ALT 51 H Alkaline Phosphatase 150 H Troponin I High Sens B-Natriuretic Peptide Total Protein 5.4 L Albumin 2.1 L Lipase Urine Color Urine Appearance Urine pH Ur Specific [place] Urine Protein Urine Glucose (UA) Urine Ketones Urine Blood Urine Nitrite Ur Leukocyte Esterase Urine RBC Urine WBC Ur Squamous Epith Cells Urine Bacteria Granular Casts Urine Mucus Stool Occult Blood COVID-19 (NATACHA) COVID-19 [employer] Com Blood Type Antibody Screen Crossmatch Quality Stroke Does the patient have a stroke diagnosis?: No VTE Prior VTE?: No VTE Risk Level:: Medical - moderate - high VTE Device Contraindication: N/A - Device Ordered VTE Drug Contraindication: Treatment Not Indicated
[2021-03-27 12:43] LABS: Baso%MD 0.6 %; Eos%MD 1.9 %; Hematocrit 24.4 % (42-52); Hemoglobin 8.2 g/dl (14.0-18.0); IG%MD 0.6 %; Lymph%MD 12.7 %; Mean Corpuscular HGB Conc 33.6 g/dl (31.0-36.0); Mean Corpuscular Hemoglobin 33.5 pg (27.0-33.0); Mean Corpuscular Volume 99.6 fL (80-98); Mean Platelet Volume 10.6 fL (9.4-12.4); Neut%MD 68.2 %; Platelet Count 110 X10*3/uL (160-400); Red Blood Count 2.45 X10*6/uL (4.60-5.80); Red Cell Distribution Width 17.4 % (11.0-16.0); White Blood Count 4.8 X10*3/uL (4.8-10.8)
[2021-03-27 12:56] LABS: Glucose, Whole Blood 154 mg/dL (60-115)
[2021-03-27 13:03] LABS: Lactate Dehydrogenase 235 U/L (118-273)
[2021-03-27] MEDS: bisacodyL 5 MG TABLET.DR 10 MG PO (14:05)
[2021-03-27 14:22] LABS: Band Neutrophils Percent 1 % (3-5); Basophils Percent Manual 1 % (0-1); Eosinophils Absolute Manual 0.1 X10*3/UL (0.0-0.8); Eosinophils Percent Manual 2 % (0-4); Lymphocytes Absolute Manual 0.2 X10*3/uL (0.6-4.8); Lymphocytes Percent Manual 5 % (20-40); Monocytes Absolute Manual 0.4 X10*3/uL (0.0-1.2); Monocytes Percent Manual 8 % (2-11); Neutrophils Percent Manual 83 % (45-73)
[2021-03-27 14:24] LABS: Burr Cells 1+ (0-2) /OIF; Ovalocytes 1+ (5-14) /OIF; RBC Morphology NOTED
[2021-03-27 14:25] LABS: Acanthocytes 1+ (0-2) /OIF; Platelet Estimate DECREASED (NORMAL); Platelet Morphology Comment NORMAL
[2021-03-27] MEDS: PEG 3350/Na Sulf,Bicarb,Cl/KCL 4,000 ML SOLN.RECON 4000 ML PO (15:38)
[2021-03-27 16:00] LABS: Glucose, Whole Blood 151 mg/dL (60-115)
--- NOTE | 2021-03-27 18:32 | PC.NURSE ---
Patient started GoLytely Oral Solution 9905 - had three unsuccessful attempts to drink the prep. Patient was unable to keep in liquids, vomited, and refused to try after third time. Both Irasema Holcomb and Dr. Sandhu notified. Dr. Sandhu will order Miralax and Gatorade for patient to try. Patient in agreement with the plan.
[2021-03-27 20:02] LABS: Glucose, Whole Blood 132 mg/dL (60-115)
[2021-03-27] MEDS: polyethylene glycoL 3350 17 GM POWD.PACK 238 GM PO (20:34)
[2021-03-28] VITALS (11 sets, daily range): BP systolic 99–139; BP diastolic 40–63; PULSE 70–88; RESP 14–19; TEMP 36.2–37.1; O2SAT 94–98
--- NOTE | 2021-03-28 03:28 | PC.NURSE ---
Pt only tolerated 32 oz of miralax drink in prep for colonoscopy. Pt stated I just could not drink anymore. Pt has yet to have loose stool since drinking the prep.
[2021-03-28 07:14] LABS: Glucose, Whole Blood 101 mg/dL (60-115)
[2021-03-28 07:16] LABS: Hematocrit 23.5 % (42-52); Hemoglobin 7.7 g/dl (14.0-18.0); Mean Corpuscular HGB Conc 32.8 g/dl (31.0-36.0); Mean Corpuscular Hemoglobin 32.4 pg (27.0-33.0); Mean Corpuscular Volume 98.7 fL (80-98); Mean Platelet Volume 10.2 fL (9.4-12.4); Platelet Count 110 X10*3/uL (160-400); Red Blood Count 2.38 X10*6/uL (4.60-5.80); Red Cell Distribution Width 16.7 % (11.0-16.0); White Blood Count 4.4 X10*3/uL (4.8-10.8)
[2021-03-28 07:37] LABS: Alanine Aminotransferase 55 U/L (0-40); Albumin Level 2.2 g/dL (3.5-5.0); Alkaline Phosphatase 141 U/L (39-117); Anion Gap 14 (12-20); Aspartate Amino Transferase 105 U/L (5-37); Bilirubin Direct 3.1 mg/dL (0.0-0.5); Bilirubin Total 5.2 mg/dL (0.0-1.0); Blood Urea Nitrogen 33 mg/dL (9-16); Calcium 7.9 mg/dL (8.4-10.2); Carbon Dioxide 22 mmol/L (22-29); Chloride 105 mmol/L (96-108); Creatinine Clr Calc Pharmacy 23.9; Estimated Glomerular Filt Rate 24; Glucose Random 105 mg/dL (60-115); Potassium 3.6 mmol/L (3.3-5.1); Sodium 137 mmol/L (135-145); Total Protein 5.5 g/dL (6.5-8.0)
[2021-03-28] MEDS: ondansetron HCL 4 MG/2 ML VIAL IVPUSH ×2 (07:49→22:59)
[2021-03-28] MEDS: 0.9 % Sodium Chloride Flush 3 ML SYRINGE IVFLUSH ×3 (07:49→22:52)
[2021-03-28] MEDS: Sodium Phosphate,Mono-Dibasic 133 ML ENEMA 266 ML PR (11:08)
[2021-03-28 11:10] LABS: Glucose, Whole Blood 99 mg/dL (60-115)
--- NOTE | 2021-03-28 12:14 | HO.ANESPROP2 ---
PENDING SALE TO [facility] Active Problems Active Problems: All Active Problems (Updated 03/26/21 @ 15:08 by Flori Gomez DO) Anemia (Acute) Weakness (Acute) Cough (Acute) Elevated serum creatinine (Acute) Shortness of breath (Acute) Malnutrition (Acute) Rectal bleed (Acute) Sepsis (Acute) Fall (Acute) Severe anemia (Acute) Occult GI bleeding (Acute) Acquired pancytopenia (Acute) UTI (urinary tract infection) (Acute) Elevated liver enzymes (Acute) Elevated liver enzymes (Acute) DIRK positive (Acute) Liver cyst (Acute) UTI (urinary tract infection) (Acute) Herpes zoster (Acute) Hypercholesterolemia (Acute) Atrial fibrillation (Acute) Obesity (BMI 30-39.9) (Acute) Chronic kidney disease (CKD) stage G4/A1, severely decreased glomerular filtration rate (GFR) between 15-29 mL/min/1.73 square meter and albuminuria creatinine ratio less than 30 mg/g (Acute) Hypertension (Acute) Type 2 diabetes mellitus with hyperglycemia (Acute) Insomnia (Acute) Congestive heart failure (Acute) Past Medical History Medical History AAA (abdominal aortic aneurysm) Abdominal aortic aneurysm Atrial fibrillation Chronic kidney disease (CKD) stage G4/A1, severely decreased glomerular filtration rate (GFR) between 15-29 mL/min/1.73 square meter and albuminuria creatinine ratio less than 30 mg/g Congestive heart failure Coronary artery disease History of CVA (cerebrovascular accident) History of prostate cancer Hypercholesterolemia Hypertension Insomnia Legally blind in right eye, as defined in [place] Obesity (BMI 30-39.9) Peripheral vascular disease Renal artery stenosis Retinal detachment Sick sinus syndrome Type 2 diabetes mellitus with hyperglycemia Family History Family History Father Heart problem Diabetes Prostate cancer Mother Acute leukemia Family history of problems with anesthesia: No Surgical History Surgical History H/O colonoscopy H/O esophagogastroduodenoscopy History of cataract surgery History of pacemaker History of prostatectomy History of thumb surgery History of tonsillectomy Hx of cystoscopy Renal calculi History of Problems with Anesthesia: No Social History Social History Household Members: Other Housing: Assisted Do you presently have visiting nurse or other home services: No Alcohol intake: never Patient Tobacco Use Status: Former Tobacco user Quit Date: 2004 Years Smoked: Cannot remember e-Cigarette/Vaping Use: Never Used Second Hand Smoke Exposure: No Use of substances other than those prescribed or required for medical reasons: No Currently Displaying Signs/Symptoms of Drug Intoxication Withdrawal: No Have you been hit, kicked, punched, or otherwise hurt by someone within the past year? If so, by whom?: No Do you feel safe in your current relationship?: Yes Is there a partner from a previous relationship who is making you feel unsafe now?: No Are you made to feel afraid or neglected: No Are you DNR?: No Advance Directives: Yes Advance Directives Information Provided: Yes Advance Directives on File: Yes Advance Directives Date on File: 10/06/20 Do you have thoughts of harming others: None Do you have a plan to hurt others: No Plan Recently lost weight without trying: Yes How much weight loss: Unsure Eating poorly because of decreased appetite: Yes Nutrition screen score: 5 Nutrition Risks: No Nutritional Risk service: Yes (UNSURE ABOUT CONNECTION) Current occupational status: retired [employer] Allergies Allergy/AdvReac Type Severity Reaction Status Date / Time No Known Allergies Allergy Verified 03/17/21 17:45 [No Known Allergies*] Active Medications: Current Medications Generic Name Dose Route Start Last Admin Trade Name Freq PRN Reason Stop Dose Admin Acetaminophen 650 mg 03/26/21 17:15 Acetaminophen 325 Mg Tablet PO Q6H PRN Pain, Mild (Pain Scale 1-3) Ondansetron HCl 4 mg 03/28/21 07:20 03/28/21 07:49 Ondansetron Hcl 4 Mg/2 Ml Vial IVPUSH 4 mg Q4H PRN Administration GI Upset Pharmacy Consult 1 each 03/26/21 17:17 Consult Rx Perform Med Rec MISCELLANE ONCE PRN Consult order Sodium Chloride 3 ml 03/27/21 00:00 03/28/21 07:49 0.9 % Sodium Chloride Flush 3 Ml Syringe IVFLUSH 3 ml QSHIFT JEANETTE Administration Home Medications Medication Instructions Recorded Confirmed Last Taken Type amiodarone 200 mg tablet 200 mg PO DAILY 05/29/20 03/26/21 03/17/21 History omega 0-jwo-tlw-fish oil 1,200 mg 1 cap PO DAILY cap 05/29/20 03/26/21 03/17/21 History (144 mg-216 mg) capsule (Fish Oil) torsemide 20 mg tablet 20 mg PO BID 10/03/20 03/26/21 03/17/21 History polyethylene glycol 3350 17 17 g PO DAILY 12/12/20 03/26/21 03/17/21 History gram/dose oral powder (Miralax) insulin degludec 100 unit/mL (3 30 unit SUBCUT DAILY@1700 01/08/21 03/26/21 03/17/21 History mL) subcutaneous pen (Tresiba FlexTouch U-100 insulin) acetaminophen 325 mg tablet 650 mg PO Q4H PRN 03/26/21 03/26/21 Unknown History cephalexin 500 mg capsule 500 mg PO BID 03/26/21 03/26/21 Unknown History cetirizine 5 mg tablet 5 mg PO BEDTIME 03/26/21 03/26/21 Unknown History cholecalciferol (vitamin D3) 25 25 mcg PO DAILY 03/26/21 03/26/21 Unknown History mcg (1,000 unit) tablet dextrose 40 % oral gel (Glucose 10 g PO Q15M PRN 03/26/21 03/26/21 Unknown History Gel) hydrocortisone 2.5 % topical cream 1 appl [place] DAILY PRN 03/26/21 03/26/21 Unknown History with perineal applicator (Procto-Med HC) linagliptin 5 mg tablet (Tradjenta) 1 tab PO DAILY 03/26/21 03/26/21 Unknown History metoprolol succinate 100 mg 100 mg PO DAILY 03/26/21 03/26/21 Unknown History tablet,extended release 24 hr Exam Exam Date and Time: March 28, 2021 1214 Height,Weight and Vital Signs: Height 5 ft 7 in Weight 82 kg Last Vital Signs Temp 98.7 F 03/28/21 11:13 Pulse 76 03/28/21 11:13 Resp 18 03/28/21 11:13 BP 128/59 L 03/28/21 11:13 Pulse Ox 95 03/28/21 11:13 Pertinent Lab Results Pertinent Lab Results: Laboratory Tests 03/26/21 03/26/21 03/26/21 14:44 14:44 14:44 WBC 4.7 L RBC 2.14 L D Hgb 7.3 L D Hct 21.8 L D MCV 101.9 H MCH 34.1 H MCHC 33.5 RDW 15.4 Plt Count 108 L MPV 10.5 Immature Gran % (Auto) 0.6 H Neut % (Auto) 64.5 Lymph % (Auto) 14.[address] [facility] % (Auto) 18.1 H Eos % (Auto) 2.2 Baso % (Auto) 0.2 Lymph # (Auto) 0.[address] [facility] # (Auto) 0.8 Eos # (Auto) 0.1 Baso # (Auto) 0.0 Abs Immat Gran (auto) 0.03 Absolute Neuts (auto) 3.0 Absolute Nucleated RBC 0.000 Nucleated RBC % (auto) 0.0 Neutrophils % (Manual) Band Neutrophils % Lymphocytes % (Manual) Monocytes % (Manual) Eosinophils % (Manual) Basophils % (Manual) Abs Neuts (Manual) Lymphocytes # (Manual) Monocytes # (Manual) Eosinophils # (Manual) Platelet Estimate Plt Morphology Comment RBC Morphology Ovalocytes [place] Cells Acanthocytes (Spur) PT INR APTT Sodium 136 Potassium 3.5 Chloride 105 Carbon Dioxide 22 Anion Gap 13 BUN 39 H Creatinine 3.31 H Estim Creat Clear Calc 18.2 Estimated GFR 18 POC Glucose Random Glucose 247 H D Lactic Acid 2.3 H* Lactic Acid Fup @ 2Hr Calcium 7.8 L Magnesium 2.5 Total Bilirubin 2.8 H Direct Bilirubin 1.8 H AST 120 H ALT 60 H Alkaline Phosphatase 176 H D Lactate Dehydrogenase Troponin I High Sens B-Natriuretic Peptide Total Protein 5.5 L Albumin 2.2 L Lipase 36 Urine Color Urine Appearance Urine pH Ur Specific [place] Urine Protein Urine Glucose (UA) Urine Ketones Urine Blood Urine Nitrite Ur Leukocyte Esterase Urine RBC Urine WBC Ur Squamous Epith Cells Urine Bacteria Granular Casts Urine Mucus Stool Occult Blood COVID-19 (NATACHA) COVID-19 Clin Com Blood Type Antibody Screen Crossmatch 03/26/21 03/26/21 03/26/21 14:44 14:44 14:44 WBC RBC Hgb Hct MCV MCH MCHC RDW Plt Count MPV Immature Gran % (Auto) Neut % (Auto) Lymph % (Auto) [facility] % (Auto) Eos % (Auto) Baso % (Auto) Lymph # (Auto) [facility] # (Auto) Eos # (Auto) Baso # (Auto) Abs Immat Gran (auto) Absolute Neuts (auto) Absolute Nucleated RBC Nucleated RBC % (auto) Neutrophils % (Manual) Band Neutrophils % Lymphocytes % (Manual) Monocytes % (Manual) Eosinophils % (Manual) Basophils % (Manual) Abs Neuts (Manual) Lymphocytes # (Manual) Monocytes # (Manual) Eosinophils # (Manual) Platelet Estimate Plt Morphology Comment RBC Morphology Ovalocytes [place] Cells Acanthocytes (Spur) PT 15.7 H INR 1.4 H APTT 38.5 H Sodium Potassium Chloride Carbon Dioxide Anion Gap BUN Creatinine Estim Creat Clear Calc Estimated GFR POC Glucose Random Glucose Lactic Acid Lactic Acid Fup @ 2Hr Calcium Magnesium Total Bilirubin Direct Bilirubin AST ALT Alkaline Phosphatase Lactate Dehydrogenase Troponin I High Sens 23.7 D B-Natriuretic Peptide 936 H Total Protein Albumin Lipase Urine Color Urine Appearance Urine pH Ur Specific [place] Urine Protein Urine Glucose (UA) Urine Ketones Urine Blood Urine Nitrite Ur Leukocyte Esterase Urine RBC Urine WBC Ur Squamous Epith Cells Urine Bacteria Granular Casts Urine Mucus Stool Occult Blood COVID-19 (NATACHA) COVID-19 Clin [facility] Blood Type Antibody Screen Crossmatch 03/26/21 03/26/21 03/26/21 15:01 15:01 16:34 WBC RBC Hgb Hct MCV MCH MCHC RDW Plt Count MPV Immature Gran % (Auto) Neut % (Auto) Lymph % (Auto) [facility] % (Auto) Eos % (Auto) Baso % (Auto) Lymph # (Auto) [facility] # (Auto) Eos # (Auto) Baso # (Auto) Abs Immat Gran (auto) Absolute Neuts (auto) Absolute Nucleated RBC Nucleated RBC % (auto) Neutrophils % (Manual) Band Neutrophils % Lymphocytes % (Manual) Monocytes % (Manual) Eosinophils % (Manual) Basophils % (Manual) Abs Neuts (Manual) Lymphocytes # (Manual) Monocytes # (Manual) Eosinophils # (Manual) Platelet Estimate Plt Morphology Comment RBC Morphology Ovalocytes Shari Cells Acanthocytes (Spur) PT INR APTT Sodium Potassium Chloride Carbon Dioxide Anion Gap BUN Creatinine Estim Creat Clear Calc Estimated GFR POC Glucose 188 H Random Glucose Lactic Acid Lactic Acid Fup @ 2Hr Calcium Magnesium Total Bilirubin Direct Bilirubin AST ALT Alkaline Phosphatase Lactate Dehydrogenase Troponin I High Sens B-Natriuretic Peptide Total Protein Albumin Lipase Urine Color Urine Appearance Urine pH Ur Specific [place] Urine Protein Urine Glucose (UA) Urine Ketones Urine Blood Urine Nitrite Ur Leukocyte Esterase Urine RBC Urine WBC Ur Squamous Epith Cells Urine Bacteria Granular Casts Urine Mucus Stool Occult Blood POSITIVE COVID-19 (NATACHA) Negative COVID-19 Clin Com See Note Blood Type Antibody Screen Crossmatch 03/26/21 03/26/21 03/26/21 17:25 17:25 18:32 WBC RBC Hgb Hct MCV MCH MCHC RDW Plt Count MPV Immature Gran % (Auto) Neut % (Auto) Lymph % (Auto) [facility] % (Auto) Eos % (Auto) Baso % (Auto) Lymph # (Auto) [facility] # (Auto) Eos # (Auto) Baso # (Auto) Abs Immat Gran (auto) Absolute Neuts (auto) Absolute Nucleated RBC Nucleated RBC % (auto) Neutrophils % (Manual) Band Neutrophils % Lymphocytes % (Manual) Monocytes % (Manual) Eosinophils % (Manual) Basophils % (Manual) Abs Neuts (Manual) Lymphocytes # (Manual) Monocytes # (Manual) Eosinophils # (Manual) Platelet Estimate Plt Morphology Comment RBC Morphology Ovalocytes [place] Cells Acanthocytes (Spur) PT INR APTT Sodium Potassium Chloride Carbon Dioxide Anion Gap BUN Creatinine Estim Creat Clear Calc Estimated GFR POC Glucose Random Glucose Lactic Acid Lactic Acid Fup @ 2Hr 2.0 Calcium Magnesium Total Bilirubin Direct Bilirubin AST ALT Alkaline Phosphatase Lactate Dehydrogenase Troponin I High Sens B-Natriuretic Peptide Total Protein Albumin Lipase Urine Color YELLOW Urine Appearance CLEAR Urine pH 6.0 Ur Specific [place] 1.025 Urine Protein 1+ H Urine Glucose (UA) NEG Urine Ketones NEG Urine Blood 2+ H Urine Nitrite NEG Ur Leukocyte Esterase NEG Urine RBC 0-2 Urine WBC 0-2 Ur Squamous Epith Cells TRACE Urine Bacteria TRACE Granular Casts 0-2 Urine Mucus TRACE Stool Occult Blood COVID-19 (NATACHA) COVID-19 Clin Com Blood Type O Negative Antibody Screen NEGATIVE Crossmatch See Detail 03/27/21 03/27/21 03/27/21 06:16 06:16 12:25 WBC 4.8 4.8 RBC 2.45 L 2.45 L Hgb 8.0 L 8.2 L Hct 24.2 L 24.4 L MCV 98.8 H 99.6 H MCH 32.7 33.5 H MCHC 33.1 33.6 RDW 17.6 H 17.4 H Plt Count 104 L 110 L MPV 10.6 10.6 Immature Gran % (Auto) 0.6 H Neut % (Auto) 65.0 Lymph % (Auto) 17.[address] [facility] % (Auto) 14.8 H Eos % (Auto) 2.1 Baso % (Auto) 0.4 Lymph # (Auto) 0.[address] # (Auto) 0.7 Eos # (Auto) 0.1 Baso # (Auto) 0.0 Abs Immat Gran (auto) 0.03 Absolute Neuts (auto) 3.1 Absolute Nucleated RBC 0.000 0.000 Nucleated RBC % (auto) 0.0 0.0 Neutrophils % (Manual) 83 H Band Neutrophils % 1 L Lymphocytes % (Manual) 5 L Monocytes % (Manual) 8 Eosinophils % (Manual) 2 Basophils % (Manual) 1 Abs Neuts (Manual) 4.0 Lymphocytes # (Manual) 0.2 L Monocytes # (Manual) 0.4 Eosinophils # (Manual) 0.1 Platelet Estimate DECREASED Plt Morphology Comment NORMAL RBC Morphology NOTED Ovalocytes 1+ (5-14) Shari Cells 1+ (0-2) Acanthocytes (Spur) 1+ (0-2) PT INR APTT Sodium 137 Potassium 3.6 Chloride 108 Carbon Dioxide 22 Anion Gap 11 L BUN 37 H Creatinine 2.85 H Estim Creat Clear Calc 21.5 Estimated GFR 22 POC Glucose Random Glucose 120 H D Lactic Acid Lactic Acid Fup @ 2Hr Calcium 7.8 L Magnesium Total Bilirubin 8.0 H Direct Bilirubin 3.8 H AST 103 H ALT 51 H Alkaline Phosphatase 150 H Lactate Dehydrogenase Troponin I High Sens B-Natriuretic Peptide Total Protein 5.4 L Albumin 2.1 L Lipase Urine Color Urine Appearance Urine pH Ur Specific [place] Urine Protein Urine Glucose (UA) Urine Ketones Urine Blood Urine Nitrite Ur Leukocyte Esterase Urine RBC Urine WBC Ur Squamous Epith Cells Urine Bacteria Granular Casts Urine Mucus Stool Occult Blood COVID-19 (NATACHA) COVID-19 Clin Com Blood Type Antibody Screen Crossmatch 03/27/21 03/27/21 03/27/21 12:25 12:52 15:52 WBC RBC Hgb Hct MCV MCH MCHC RDW Plt Count MPV Immature Gran % (Auto) Neut % (Auto) Lymph % (Auto) [facility] % (Auto) Eos % (Auto) Baso % (Auto) Lymph # (Auto) [facility] # (Auto) Eos # (Auto) Baso # (Auto) Abs Immat Gran (auto) Absolute Neuts (auto) Absolute Nucleated RBC Nucleated RBC % (auto) Neutrophils % (Manual) Band Neutrophils % Lymphocytes % (Manual) Monocytes % (Manual) Eosinophils % (Manual) Basophils % (Manual) Abs Neuts (Manual) Lymphocytes # (Manual) Monocytes # (Manual) Eosinophils # (Manual) Platelet Estimate Plt Morphology Comment RBC Morphology Ovalocytes Shari Cells Acanthocytes (Spur) PT INR APTT Sodium Potassium Chloride Carbon Dioxide Anion Gap BUN Creatinine Estim Creat Clear Calc Estimated GFR POC Glucose 154 H 151 H Random Glucose Lactic Acid Lactic Acid Fup @ 2Hr Calcium Magnesium Total Bilirubin Direct Bilirubin AST ALT Alkaline Phosphatase Lactate Dehydrogenase 235 Troponin I High Sens B-Natriuretic Peptide Total Protein Albumin Lipase Urine Color Urine Appearance Urine pH Ur Specific [place] Urine Protein Urine Glucose (UA) Urine Ketones Urine Blood Urine Nitrite Ur Leukocyte Esterase Urine RBC Urine WBC Ur Squamous Epith Cells Urine Bacteria Granular Casts Urine Mucus Stool Occult Blood COVID-19 (NATACHA) COVID-19 Clin Com Blood Type Antibody Screen Crossmatch 03/27/21 03/28/21 03/28/21 19:59 06:28 06:28 WBC 4.4 L RBC 2.38 L Hgb 7.7 L Hct 23.5 L MCV 98.7 H MCH 32.4 MCHC 32.8 RDW 16.7 H Plt Count 110 L MPV 10.2 Immature Gran % (Auto) Neut % (Auto) Lymph % (Auto) [facility] % (Auto) Eos % (Auto) Baso % (Auto) Lymph # (Auto) [facility] # (Auto) Eos # (Auto) Baso # (Auto) Abs Immat Gran (auto) Absolute Neuts (auto) Absolute Nucleated RBC 0.000 Nucleated RBC % (auto) 0.0 Neutrophils % (Manual) Band Neutrophils % Lymphocytes % (Manual) Monocytes % (Manual) Eosinophils % (Manual) Basophils % (Manual) Abs Neuts (Manual) Lymphocytes # (Manual) Monocytes # (Manual) Eosinophils # (Manual) Platelet Estimate Plt Morphology Comment RBC Morphology Ovalocytes [place] Cells Acanthocytes (Spur) PT INR APTT Sodium 137 Potassium 3.6 Chloride 105 Carbon Dioxide 22 Anion Gap 14 BUN 33 H Creatinine 2.56 H Estim Creat Clear Calc 23.9 Estimated GFR 24 POC Glucose 132 H Random Glucose 105 Lactic Acid Lactic Acid Fup @ 2Hr Calcium 7.9 L Magnesium Total Bilirubin 5.2 H Direct Bilirubin 3.1 H AST 105 H ALT 55 H Alkaline Phosphatase 141 H Lactate Dehydrogenase Troponin I High Sens B-Natriuretic Peptide Total Protein 5.5 L Albumin 2.2 L Lipase Urine Color Urine Appearance Urine pH Ur Specific [place] Urine Protein Urine Glucose (UA) Urine Ketones Urine Blood Urine Nitrite Ur Leukocyte Esterase Urine RBC Urine WBC Ur Squamous Epith Cells Urine Bacteria Granular Casts Urine Mucus Stool Occult Blood COVID-19 (NATACHA) COVID-19 [facility] Com Blood Type Antibody Screen Crossmatch 03/28/21 03/28/21 07:02 10:59 WBC RBC Hgb Hct MCV MCH MCHC RDW Plt Count MPV Immature Gran % (Auto) Neut % (Auto) Lymph % (Auto) [facility] % (Auto) Eos % (Auto) Baso % (Auto) Lymph # (Auto) [facility] # (Auto) Eos # (Auto) Baso # (Auto) Abs Immat Gran (auto) Absolute Neuts (auto) Absolute Nucleated RBC Nucleated RBC % (auto) Neutrophils % (Manual) Band Neutrophils % Lymphocytes % (Manual) Monocytes % (Manual) Eosinophils % (Manual) Basophils % (Manual) Abs Neuts (Manual) Lymphocytes # (Manual) Monocytes # (Manual) Eosinophils # (Manual) Platelet Estimate Plt Morphology Comment RBC Morphology Ovalocytes [place] Cells Acanthocytes (Spur) PT INR APTT Sodium Potassium Chloride Carbon Dioxide Anion Gap BUN Creatinine Estim Creat Clear Calc Estimated GFR POC Glucose 101 99 Random Glucose Lactic Acid Lactic Acid Fup @ 2Hr Calcium Magnesium Total Bilirubin Direct Bilirubin AST ALT Alkaline Phosphatase Lactate Dehydrogenase Troponin I High Sens B-Natriuretic Peptide Total Protein Albumin Lipase Urine Color Urine Appearance Urine pH Ur Specific [place] Urine Protein Urine Glucose (UA) Urine Ketones Urine Blood Urine Nitrite Ur Leukocyte Esterase Urine RBC Urine WBC Ur Squamous Epith Cells Urine Bacteria Granular Casts Urine Mucus Stool Occult Blood COVID-19 (NATACHA) COVID-19 [facility] Blood Type Antibody Screen Crossmatch Airway Mallampati Class: II TM Dist: >3cm Neck ROM: Full Heart: rrr Assessment and Plan Assessment Anesthesia Assessment: Anesthesia Plan Discussed and Chart Reviewed Final Anesthetic Review Family History of Problems with Anesthesia: No History of Problems with Anesthesia: No NPO: Yes ASA Class: III Final Preanesthetic Review: No Changes in Pt Med Stat, Meds/Allgs Chart Reviewed and Consent Obtained/Reviewed Patient Risk: Intermediate Procedure Risk: Intermediate Anesthetic Plan Anesthetic Plan: MAC: Disposition: Standard PACU
--- NOTE | 2021-03-28 12:26 | MHC.SHP ---
Pre-Procedural Eval Section A Date of Service: 03/28/21 The patient is an INPATIENT: Yes The History & Physical has been completed within 30 days and I have reviewed it.: Yes Section B Chief Complaint: GI Bleed Allergies: Allergies Allergy/AdvReac Type Severity Reaction Status Date / Time No Known Allergies Allergy Verified 03/17/21 17:45 [No Known Allergies*] Plan Diagnosis/Plan: Unchanged I have reviewed the history and physical and performed a pertinent physical examination on my patient. No changes have occurred unless specified. 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
--- NOTE | 2021-03-28 12:50 | PM.IMPN ---
Progress Note: A&P (1) Anemia: Status: Acute (2) Occult GI bleeding: Status: Acute (3) Elevated liver enzymes: Status: Acute Assessment and Plan: 81-year-old man admitted with GI bleed. GI bleed.? Hematochezia at home History of esophageal varices colonoscopy PPI GI following Anemia. Secondary to GI bleed H&H down today to 7.7/23.5 Recheck H&H tomorrow it has dropped transfuse Transaminitis.? Has been elevated for several months. peak at 8.0, trending down Do hemolysis workup consult heme Abdominal MRI in February showed hepatic cyst similar to previous CKD.? Mildly elevated Follow closely Transfuse Atrial fibrillation.? Controlled Hold anticoagulation Continue amiodarone Diabetes mellitus Sliding scale, clear liquid diet DVT prophylaxis with early ambulation, scd boots Attending Dr. Gutierrez Subjective Subjective Date of Service: 03/28/21 Review of Systems Follow-up GI bleed No bleeding this morning Denies chest pain, shortness of breath, abdominal pain, nausea, vomiting, diarrhea All other systems are reviewed and are negative Physical Exam Vital Signs: Vital Signs: Last Vital Signs Temp 97.2 F 03/28/21 12:27 Pulse 74 03/28/21 12:27 Resp 16 03/28/21 12:27 BP 129/48 L 03/28/21 12:27 Pulse Ox 97 03/28/21 12:27 Body Mass Index 28.3 jaundiced, sclera icteric lung sounds are clear to auscultation heart regular rate rhythm, clear S1, S2 positive bowel sounds, abdomen is soft, nontender neuro patient is alert x3, no focal deficits Objective Data Current Medications Generic Name Dose Route Start Last Admin Trade Name Freq PRN Reason Stop Dose Admin Acetaminophen 650 mg 03/26/21 17:15 Acetaminophen 325 Mg Tablet PO Q6H PRN Pain, Mild (Pain Scale 1-3) Ondansetron HCl 4 mg 03/28/21 07:20 03/28/21 07:49 Ondansetron Hcl 4 Mg/2 Ml Vial IVPUSH 4 mg Q4H PRN Administration GI Upset Pharmacy Consult 1 each 03/26/21 17:17 Consult Rx Perform Med Rec MISCELLANE ONCE PRN Consult order Sodium Chloride 3 ml 03/27/21 00:00 03/28/21 07:49 0.9 % Sodium Chloride Flush 3 Ml Syringe IVFLUSH 3 ml QSHIFT JEANETTE Administration Labs CBC & Chem 7: 03/28/21 06:28 03/28/21 06:28 Labs: Laboratory Results - last 24 hr 03/27/21 03/27/21 03/27/21 12:25 12:25 12:52 MCV 99.6 H MCH 33.5 H MCHC 33.6 RDW 17.4 H Plt Count 110 L MPV 10.6 Absolute Nucleated RBC 0.000 Nucleated RBC % (auto) 0.0 Neutrophils % (Manual) 83 H Band Neutrophils % 1 L Lymphocytes % (Manual) 5 L Monocytes % (Manual) 8 Eosinophils % (Manual) 2 Basophils % (Manual) 1 Abs Neuts (Manual) 4.0 Lymphocytes # (Manual) 0.2 L Monocytes # (Manual) 0.4 Eosinophils # (Manual) 0.1 Platelet Estimate DECREASED Plt Morphology Comment NORMAL RBC Morphology NOTED Ovalocytes 1+ (5-14) [place] Cells 1+ (0-2) Acanthocytes (Spur) 1+ (0-2) Anion Gap Estim Creat Clear Calc Estimated GFR POC Glucose 154 H Random Glucose Calcium Total Bilirubin Direct Bilirubin AST ALT Alkaline Phosphatase Lactate Dehydrogenase 235 Total Protein Albumin 03/27/21 03/27/21 03/28/21 15:52 19:59 06:28 MCV 98.7 H MCH 32.4 MCHC 32.8 RDW 16.7 H Plt Count 110 L MPV 10.2 Absolute Nucleated RBC 0.000 Nucleated RBC % (auto) 0.0 Neutrophils % (Manual) Band Neutrophils % Lymphocytes % (Manual) Monocytes % (Manual) Eosinophils % (Manual) Basophils % (Manual) Abs Neuts (Manual) Lymphocytes # (Manual) Monocytes # (Manual) Eosinophils # (Manual) Platelet Estimate Plt Morphology Comment RBC Morphology Ovalocytes Shari Cells Acanthocytes (Spur) Anion Gap Estim Creat Clear Calc Estimated GFR POC Glucose 151 H 132 H Random Glucose Calcium Total Bilirubin Direct Bilirubin AST ALT Alkaline Phosphatase Lactate Dehydrogenase Total Protein Albumin 03/28/21 03/28/21 03/28/21 06:28 07:02 10:59 MCV MCH MCHC RDW Plt Count MPV Absolute Nucleated RBC Nucleated RBC % (auto) Neutrophils % (Manual) Band Neutrophils % Lymphocytes % (Manual) Monocytes % (Manual) Eosinophils % (Manual) Basophils % (Manual) Abs Neuts (Manual) Lymphocytes # (Manual) Monocytes # (Manual) Eosinophils # (Manual) Platelet Estimate Plt Morphology Comment RBC Morphology Ovalocytes Shari Cells Acanthocytes (Spur) Anion Gap 14 Estim Creat Clear Calc 23.9 Estimated GFR 24 POC Glucose 101 99 Random Glucose 105 Calcium 7.9 L Total Bilirubin 5.2 H Direct Bilirubin 3.1 H AST 105 H ALT 55 H Alkaline Phosphatase 141 H Lactate Dehydrogenase Total Protein 5.5 L Albumin 2.2 L Quality Stroke Does the patient have a stroke diagnosis?: No VTE Prior VTE?: No VTE Risk Level:: Medical - moderate - high VTE Device Contraindication: N/A - Device Ordered VTE Drug Contraindication: Treatment Not Indicated
--- NOTE | 2021-03-28 12:53 | P.BOP_ITS ---
Brief Operative Note Date of Service: 03/28/21 Pre-op diagnosis: anemia Post-op diagnosis: same Procedure: see op note Surgeon: Xuan Sandhu MD Anesthesia: MAC Was an Washing Machine Repairer used for this Procedure?: No Estimated blood loss (mL): 0 Condition: stable Disposition: PACU
--- NOTE | 2021-03-28 12:54 | W.PM.OPN ---
Operative Note Operative Note Date of Service: 03/28/21 Narrative: Operative Information Procedure Description: EGD, Colonoscopy FLEXIBLE TRANSORAL UPPER GASTROINTESTINAL ENDOSCOPY AND COLONOSCOPY PROCEDURE NOTE UPPER ENDOSCOPY Consent: Indications for the procedure and potential complications of bleeding, perforation, reaction to medications and missed diagnosis were discussed with the patient and informed consent was obtained. Instrument: Olympus GIF H 190 J mid size upper endoscope Monitoring: Vital signs and clinical assessment, continuous EKG monitoring, Pulse oximetry, Carbon Dioxide monitoring and blood pressure monitoring were done throughout the procedure. Procedure: The patient was placed in the left lateral decubitis position and pre-procedure medications were administered and a bite block was placed. The endoscope was inserted into the mouth and advanced under direct vision to the third part of duodenum. A careful inspection was made as the upper endoscope was withdrawn including a retroflexed examination of the proximal stomach; Findings and interventions are described below. Findings: Larynx-normal Esophagus: GE junction at 40? cm, diaphragm hiatus at 40 cm, small flat varices without any high risk stigmata noted, mild esophagitis and non obstructive schatzki ring. Few patches of white plaque consistent with marilu. Stomach: Patchy gastric erythema at the antrum consistent with mild gastric antral vascular ectasia (GAVE). Grade 2 flap valve on retroflexed examination of the cardia. Duodenum: normal No active bleeding noted. Intervention: none COLONOSCOPY Instrument: Olympus variable stiffness adult scope 190L Colonoscopy Monitoring: Vital signs and clinical assessment, continuous EKG monitoring, Pulse oximetry, Carbon Dioxide monitoring and blood pressure monitoring were done throughout the procedure. Procedure: The patient was placed in the left lateral decubitis position and pre-procedure medications were administered. After a digital rectal examination of the ano-rectum, the video colonoscope was inserted into the rectum and advanced through the colon to the ascending colon The colonoscope was slowly withdrawn in a retrograde panoramic fashion and the colon mucosa was carefully examined. Retroflexion not done. Findings and interventions are described below. Procedure Difficulty:moderate There was persistent oozing of blood from the ectatic lesions in the rectum. Some external hemorrhoids noted which were non bleeding. Marked diverticulosis noted thru out colon. Few sessile polyps noted 8-10 mm but not removed. Prep was very poor. Due to poor prep the rectal bleeding was treated with hemospray and APC was not used. Thsi appeared to be successful. Impression and Post Procedure Diagnosis: Endoscopy Findings: mild GAVE varicies candidiasis Colonoscopy Findings: actively bleeding radiation proctitis hemorrhoids polyps diverticular disease Plan: Recommend using steroid supps or proctofoam BID for 4 weeks from tomorrow if ongoing bleeding then re prep and treat with APC but i am hopeful that the hemospray will have done the trick today. Above findings were reviewed with the patient and relevant handouts were provided if indicated.
--- NOTE | 2021-03-28 14:50 | MHC.CM.PN ---
Male 81 DX GIB. No discharge today. H/H has decreased. Patient is scheduled for a colonoscopy and EGD today. CM will follow. DP is home no services family transport.
[2021-03-28] MEDS: cefTRIAXone sodium 2 GM in 0.9 % Sodium Chloride 50 ML IV (16:24)
[2021-03-28 16:34] LABS: Hemoglobin 8.1 g/dl (14.0-18.0)
[2021-03-28] MEDS: Famotidine/PF 20 MG/2 ML VIAL IVPUSH (19:36)
[2021-03-28] MEDS: Calcium Carbonate 750 MG TAB.CHEW PO (19:37)
[2021-03-28 20:25] LABS: Glucose, Whole Blood 210 mg/dL (60-115)
[2021-03-29] VITALS (9 sets, daily range): BP systolic 98–128; BP diastolic 54–66; PULSE 88–95; RESP 15–18; TEMP 35.9–36.6; O2SAT 92–98
[2021-03-29 06:47] LABS: Hemoglobin 7.5 g/dl (14.0-18.0); Mean Corpuscular HGB Conc 32.6 g/dl (31.0-36.0); Mean Corpuscular Hemoglobin 33.2 pg (27.0-33.0); Mean Corpuscular Volume 101.8 fL (80-98); Mean Platelet Volume 10.7 fL (9.4-12.4); Platelet Count 198 X10*3/uL (160-400); Red Blood Count 2.26 X10*6/uL (4.60-5.80); Red Cell Distribution Width 17.2 % (11.0-16.0); White Blood Count 12.3 X10*3/uL (4.8-10.8)
[2021-03-29 07:12] LABS: Anion Gap 20 (12-20); Blood Urea Nitrogen 40 mg/dL (9-16); Calcium 8.3 mg/dL (8.4-10.2); Carbon Dioxide 16 mmol/L (22-29); Chloride 100 mmol/L (96-108); Creatinine Clr Calc Pharmacy 20.9; Estimated Glomerular Filt Rate 21; Glucose Random 231 mg/dL (60-115); Potassium 4.1 mmol/L (3.3-5.1); Sodium 132 mmol/L (135-145)
[2021-03-29 07:20] LABS: Glucose, Whole Blood 213 mg/dL (60-115)
--- NOTE | 2021-03-29 07:24 | HO.POSTANES ---
Post Anesthesia Evaluation Post Anesthesia Evaluation Vital Signs: Vital Signs Temp Pulse Resp BP Pulse Ox 03/29/21 03:06 97.7 F 93 18 121/57 L 96 03/28/21 23:39 97.6 F 88 18 139/63 97 03/28/21 19:48 98 F 84 18 116/56 L 98 Anesthesia: Monitored Mental Status: Awake Pain Control: Satisfactory Nausea/Vomiting: None Hydration: Adequate Anesthesia-Related Issues: No Anes. Related Issues
[2021-03-29] MEDS: Famotidine/PF 20 MG/2 ML VIAL IVPUSH (08:57)
[2021-03-29] MEDS: 0.9 % Sodium Chloride Flush 3 ML SYRINGE IVFLUSH ×3 (08:57→20:44)
[2021-03-29 11:26] LABS: Glucose, Whole Blood 310 mg/dL (60-115)
[2021-03-29 11:27] LABS: Haptoglobin 44 mg/dL (43-212)
[2021-03-29] MEDS: Omeprazole 20 MG CAPSULE.DR PO (11:51)
[2021-03-29] MEDS: Insulin Lispro 100 UNIT/ML 3 ML VIAL SUBCUT ×3 (11:51→20:44)
--- NOTE | 2021-03-29 12:49 | HO.PM.IMPN ---
Subjective Subjective Date of Service: 03/29/21 Interval History: Seen and examined this morning Follow-up for GI bleed Status post EGD/colonoscopy yesterday Reporting acid reflux today. No nausea, no vomiting Review of Systems Review of Systems: Yes all other systems are reviewed and are negative Constitutional Constitutional: Denies chills and Denies fever(s) Cardiovascular Cardiovascular: Denies chest pain Respiratory Respiratory: Denies cough Gastrointestinal Gastrointestinal: Denies abdominal pain Physical Exam Vital Signs: Vital Signs: Last Vital Signs Temp 96.7 F L 03/29/21 11:48 Pulse 90 03/29/21 11:48 Resp 18 03/29/21 11:48 BP 126/66 03/29/21 11:48 Pulse Ox 98 03/29/21 11:43 Body Mass Index 28.3 Const: General: comfortable, alert and awake Nutritional Appearance: well nourished Orientation/consciousness: patient oriented x3 HENMT: Head: Yes normocephalic and Yes atraumatic Eyes: Sclerae: sclerae normal Pupils: Equal, round and reactive pupils present Chest: Chest palpation & inspection: normal inspection of the chest Resp: Effort & Inspection: normal respiratory effort and no respiratory distress Cardio: Rate: regular rate Rhythm: regular rhythm GI: Palpation (GI): Soft to palpation and nontender Neuro: General: patient oriented x3 Cranial nerves: Yes CN's II-XII intact bilaterally, Yes Equal, round and reactive pupils present and Yes Bilaterally intact EOM present Objective Data Active Medications Acetaminophen (Acetaminophen 325 Mg Tablet) 650 mg PO Q6H PRN PRN Reason: Pain, Mild (Pain Scale 1-3) Dextrose (Dextrose 50 % 25 Gm/50 Ml Vial) 25 gm IVPUSH Q15M PRN; Protocol PRN Reason: per Hypoglycemia Standing Ord. Glucose (Glucose Gel 15 Gm Gel..Gram.) 15 gm PO Q15M PRN; Protocol PRN Reason: per Hypoglycemia Standing Ord. Insulin Human Lispro (Insulin Lispro 100 Unit/Ml 3 Ml Vial) 0 unit SUBCUT QIDACHS [facility]; Protocol Last Admin: 03/29/21 11:51 Dose: 8 unit Documented by: RADHA Omeprazole (Omeprazole 20 Mg Capsule.) 20 mg PO DAILY@0630 [facility] Last Admin: 03/29/21 11:51 Dose: 20 mg Documented by: RADHA Ondansetron HCl (Ondansetron Hcl 4 Mg/2 Ml Vial) 4 mg IVPUSH Q4H PRN PRN Reason: GI Upset Last Admin: 03/28/21 07:49 Dose: 4 mg Documented by: MEGHAN Ondansetron HCl (Ondansetron Hcl 4 Mg/2 Ml Vial) 4 mg IVPUSH ONCE PRN PRN Reason: Nausea and Vomiting Last Admin: 03/28/21 22:59 Dose: 4 mg Documented by: WILL Pharmacy Consult (Consult Rx Perform Med Rec) 1 each MISCELLANE ONCE PRN PRN Reason: Consult order Sodium Chloride (0.9 % Sodium Chloride Flush 3 Ml Syringe) 3 ml IVFLUSH QSHIFT [facility] Last Admin: 03/29/21 08:57 Dose: 3 ml Documented by: RADHA Labs CBC & Chem 7: 03/29/21 05:59 03/29/21 05:59 Labs: Laboratory Results - last 24 hr 03/26/21 03/27/21 03/28/21 17:25 12:25 20:15 MCV MCH MCHC RDW Plt Count MPV Absolute Nucleated RBC Nucleated RBC % (auto) Haptoglobin 44 Anion Gap Estim Creat Clear Calc Estimated GFR POC Glucose 210 H Random Glucose Calcium Blood Type O Negative Antibody Screen NEGATIVE Crossmatch See Detail 03/29/21 03/29/21 03/29/21 05:59 05:59 07:02 MCV 101.8 H MCH 33.2 H MCHC 32.6 RDW 17.2 H Plt Count 198 D MPV 10.7 Absolute Nucleated RBC 0.000 Nucleated RBC % (auto) 0.0 Haptoglobin Anion Gap 20 Estim Creat Clear Calc 20.9 Estimated GFR 21 POC Glucose 213 H Random Glucose 231 H D Calcium 8.3 L Blood Type Antibody Screen Crossmatch 03/29/21 11:11 MCV MCH MCHC RDW Plt Count MPV Absolute Nucleated RBC Nucleated RBC % (auto) Haptoglobin Anion Gap Estim Creat Clear Calc Estimated GFR POC Glucose 310 H Random Glucose Calcium Blood Type Antibody Screen Crossmatch Assessment and Plan (1) Anemia: Status: Acute Assessment and Plan: 81-year-old man admitted with GI bleed. GI bleed.? Hematochezia at home History of esophageal varices s/p endoscopy and colonoscopy 03/29 results below Endoscopy findings showed mild GAVE, varices, candidiasis Colonoscopy findings showed actively bleeding radiation proctitis, there was persistent oozing of blood from the ectatic lesion in the rectum, rectal bleeding was treated with hemo spray -proctofoam BID x 4 weeks -follow up biopsy results to determine need for treatment for candidiasis Anemia. Secondary to GI bleed H&H down today to 7.5/23.0 Will transfuse 1 unit RBCs Follow CBC Transaminitis.? Has been elevated for several months. Abdominal MRI in February showed hepatic cyst similar to previous although the liver is normal in size, smooth and no evidence of hepatic steatosis. ?r/t amiodorone - will discuss with cardiology Consider heme evaluation as outpatient CKD4 Creatinine within baseline Atrial fibrillation.? Controlled Hold Eliquis Resume metoprolol Amiodorone on hold since admission Diabetes mellitus ADA diet, Sliding scale DVT prophylaxis with early ambulation, scd boots Attending Dr. Gutierrez Quality Stroke Does the patient have a stroke diagnosis?: No VTE Prior VTE?: No VTE Risk Level:: Medical - moderate - high VTE Device Contraindication: N/A - Device Ordered VTE Drug Contraindication: Treatment Not Indicated
[2021-03-29 16:18] LABS: Glucose, Whole Blood 258 mg/dL (60-115)
[2021-03-29 20:15] LABS: Glucose, Whole Blood 242 mg/dL (60-115)
[2021-03-30] VITALS (13 sets, daily range): BP systolic 94–114; BP diastolic 44–65; PULSE 81–98; RESP 12–19; TEMP 35.7–36.7; O2SAT 90–95
[2021-03-30] MEDS: Omeprazole 20 MG CAPSULE.DR PO (05:51)
[2021-03-30 07:10] LABS: Hematocrit 23.5 % (42-52); Hemoglobin 7.8 g/dl (14.0-18.0); Mean Corpuscular HGB Conc 33.2 g/dl (31.0-36.0); Mean Corpuscular Hemoglobin 32.9 pg (27.0-33.0); Mean Corpuscular Volume 99.2 fL (80-98); Mean Platelet Volume 10.5 fL (9.4-12.4); Platelet Count 123 X10*3/uL (160-400); Red Blood Count 2.37 X10*6/uL (4.60-5.80); Red Cell Distribution Width 16.3 % (11.0-16.0); White Blood Count 9.4 X10*3/uL (4.8-10.8)
[2021-03-30 07:25] LABS: Alanine Aminotransferase 52 U/L (0-40); Albumin Level 2.4 g/dL (3.5-5.0); Alkaline Phosphatase 153 U/L (39-117); Aspartate Amino Transferase 80 U/L (5-37); Bilirubin Direct 3.5 mg/dL (0.0-0.5); Bilirubin Total 5.6 mg/dL (0.0-1.0); Total Protein 5.7 g/dL (6.5-8.0)
[2021-03-30 07:37] LABS: Glucose, Whole Blood 217 mg/dL (60-115)
[2021-03-30] MEDS: Insulin Lispro 100 UNIT/ML 3 ML VIAL SUBCUT ×4 (08:13→21:16)
[2021-03-30] MEDS: polyethylene glycoL 3350 17 GM POWD.PACK PO (08:13)
[2021-03-30] MEDS: Cholecalciferol (Vitamin D3) 25 MCG TABLET PO (08:13)
[2021-03-30] MEDS: 0.9 % Sodium Chloride Flush 3 ML SYRINGE IVFLUSH ×3 (08:14→21:18)
[2021-03-30] MEDS: Pramoxine HCl 1 % Rectal Foam 15 GM 1 APPL PR ×2 (08:14→21:20)
[2021-03-30 12:16] LABS: Glucose, Whole Blood 221 mg/dL (60-115)
--- NOTE | 2021-03-30 12:28 | PM.CNCAR ---
History of Present Illness History of Present Illness Date of Service: 03/30/21 Requesting physician: Rahul Gutierrez Chief complaint: Abnormal LFTs, on amiodarone. Narrative: 81-year-old gentleman was background history of atrial fibrillation, chronic kidney disease, hypertension, diabetes, congestive heart failure, liver cyst and rectal bleeding. He is here with bleeding and anemia. He has radiation proctitis. His anticoagulation is on hold. He is anemic. He gets short of breath when he walks. His liver enzymes are abnormal. We have been asked whether amiodarone is a cause for that. Currently amiodarone is on hold. He is denying any orthopnea or PND. Only dyspnea with exertion. Review of Systems Review of Systems: Bleeding, shortness of breath PMFSH Past Medical History Medical History AAA (abdominal aortic aneurysm) Abdominal aortic aneurysm Atrial fibrillation Chronic kidney disease (CKD) stage G4/A1, severely decreased glomerular filtration rate (GFR) between 15-29 mL/min/1.73 square meter and albuminuria creatinine ratio less than 30 mg/g Congestive heart failure Coronary artery disease History of CVA (cerebrovascular accident) History of prostate cancer Hypercholesterolemia Hypertension Insomnia Legally blind in right eye, as defined in [place] Obesity (BMI 30-39.9) Peripheral vascular disease Renal artery stenosis Retinal detachment Sick sinus syndrome Type 2 diabetes mellitus with hyperglycemia Family History Family History Father Heart problem Diabetes Prostate cancer Mother Acute leukemia Surgical History Surgical History H/O colonoscopy H/O esophagogastroduodenoscopy History of cataract surgery History of pacemaker History of prostatectomy History of thumb surgery History of tonsillectomy Hx of cystoscopy Renal calculi Social History Social History Household Members: Other Housing: Retirement Do you presently have visiting nurse or other home services: No Alcohol intake: never Patient Tobacco Use Status: Former Tobacco user Quit Date: 2005 Years Smoked: Cannot remember e-Cigarette/Vaping Use: Never Used Second Hand Smoke Exposure: No Use of substances other than those prescribed or required for medical reasons: No Currently Displaying Signs/Symptoms of Drug Intoxication Withdrawal: No Have you been hit, kicked, punched, or otherwise hurt by someone within the past year? If so, by whom?: No Do you feel safe in your current relationship?: Yes Is there a partner from a previous relationship who is making you feel unsafe now?: No Are you made to feel afraid or neglected: No Are you DNR?: No Advance Directives: Yes Advance Directives Information Provided: Yes Advance Directives on File: Yes Advance Directives Date on File: 10/06/20 Do you have thoughts of harming others: None Do you have a plan to hurt others: No Plan Recently lost weight without trying: Yes How much weight loss: Unsure Eating poorly because of decreased appetite: Yes Nutrition screen score: 5 Nutrition Risks: No Nutritional Risk service: Yes (UNSURE ABOUT CONNECTION) Current occupational status: retired [employer] Allergies Allergy/AdvReac Type Severity Reaction Status Date / Time No Known Allergies Allergy Verified 03/17/21 17:45 [No Known Allergies*] Active Medications: Current Medications Acetaminophen (Acetaminophen 325 Mg Tablet) 650 mg PO Q6H PRN PRN Reason: Pain, Mild (Pain Scale 1-3) Dextrose (Dextrose 50 % 25 Gm/50 Ml Vial) 25 gm IVPUSH Q15M PRN; Protocol PRN Reason: per Hypoglycemia Standing Ord. Glucose (Glucose Gel 15 Gm Gel..Gram.) 15 gm PO Q15M PRN; Protocol PRN Reason: per Hypoglycemia Standing Ord. Insulin Human Lispro (Insulin Lispro 100 Unit/Ml 3 Ml Vial) 0 unit SUBCUT QIDACHS [facility]; Protocol Last Admin: 03/30/21 12:20 Dose: 4 unit Documented by: Omeprazole (Omeprazole 20 Mg Capsule.) 20 mg PO DAILY@0630 [facility] Last Admin: 03/30/21 05:51 Dose: 20 mg Documented by: Ondansetron HCl (Ondansetron Hcl 4 Mg/2 Ml Vial) 4 mg IVPUSH Q4H PRN PRN Reason: GI Upset Last Admin: 03/28/21 07:49 Dose: 4 mg Documented by: Ondansetron HCl (Ondansetron Hcl 4 Mg/2 Ml Vial) 4 mg IVPUSH ONCE PRN PRN Reason: Nausea and Vomiting Last Admin: 03/28/21 22:59 Dose: 4 mg Documented by: Pharmacy Consult (Consult Rx Perform Med Rec) 1 each MISCELLANE ONCE PRN PRN Reason: Consult order Polyethylene Glycol (Polyethylene Glycol 3350 17 Gm Powd.Pack) 17 gm PO DAILY [facility] Last Admin: 03/30/21 08:13 Dose: 17 gm Documented by: Pramoxine HCl (Pramoxine Hcl 1 % Rectal Foam 15 Gm) 1 appl UT BID [facility] Last Admin: 03/30/21 08:14 Dose: 1 appl Documented by: Sodium Chloride (0.9 % Sodium Chloride Flush 3 Ml Syringe) 3 ml IVFLUSH QSHIFT [facility] Last Admin: 03/30/21 08:14 Dose: 3 ml Documented by: Vitamin D (Cholecalciferol (Vitamin D3) 25 Mcg Tablet) 25 mcg PO DAILY [facility] Last Admin: 03/30/21 08:13 Dose: 25 mcg Documented by: Home Medications Medication Instructions Recorded Confirmed Last Taken Type amiodarone 200 mg tablet 200 mg PO DAILY 05/29/20 03/26/21 03/17/21 History omega 2-oyq-yhb-fish oil 1,200 mg 1 cap PO DAILY cap 05/29/20 03/26/21 03/17/21 History (144 mg-216 mg) capsule (Fish Oil) torsemide 20 mg tablet 20 mg PO BID 10/03/20 03/26/21 03/17/21 History polyethylene glycol 3350 17 17 g PO DAILY 12/12/20 03/26/21 03/17/21 History gram/dose oral powder (Miralax) insulin degludec 100 unit/mL (3 30 unit SUBCUT DAILY@1700 01/08/21 03/26/21 03/17/21 History mL) subcutaneous pen (Tresiba FlexTouch U-100 insulin) acetaminophen 325 mg tablet 650 mg PO Q4H PRN 03/26/21 03/26/21 Unknown History cephalexin 500 mg capsule 500 mg PO BID 03/26/21 03/26/21 Unknown History cetirizine 5 mg tablet 5 mg PO BEDTIME 03/26/21 03/26/21 Unknown History cholecalciferol (vitamin D3) 25 25 mcg PO DAILY 03/26/21 03/26/21 Unknown History mcg (1,000 unit) tablet dextrose 40 % oral gel (Glucose 10 g PO Q15M PRN 03/26/21 03/26/21 Unknown History Gel) hydrocortisone 2.5 % topical cream 1 appl UT DAILY PRN 03/26/21 03/26/21 Unknown History with perineal applicator (Procto-Med HC) linagliptin 5 mg tablet (Tradjenta) 1 tab PO DAILY 03/26/21 03/26/21 Unknown History metoprolol succinate 100 mg 100 mg PO DAILY 03/26/21 03/26/21 Unknown History tablet,extended release 24 hr Physical Exam Vital Signs: Vital Signs: Last Vital Signs Temp 98.1 F 03/30/21 11:42 Pulse 86 03/30/21 11:42 Resp 19 03/30/21 11:42 BP 99/44 L 03/30/21 11:42 Pulse Ox 91 L 03/30/21 11:42 Body Mass Index 28.3 GENERAL APPEARANCE: in no acute distress, pleasant. NECK: no carotid bruit, no jugular venous distention. SKIN: no suspicious lesions, warm and dry. HEART: no murmurs, irregular rate and rhythm. LUNGS: clear to auscultation bilaterally. ABDOMEN: soft, nontender. EXTREMITIES: no edema. PERIPHERAL PULSES: equal. NEUROLOGIC: No gross deficits, AAO X 3 Results Labs and Meds Result diagrams: 03/30/21 06:58 03/29/21 05:59 Lab results: Laboratory Results - last 24 hr 03/29/21 03/29/21 03/30/21 16:06 20:00 06:58 WBC 9.4 RBC 2.37 L Hgb 7.8 L Hct 23.5 L MCV 99.2 H MCH 32.9 MCHC 33.2 RDW 16.3 H Plt Count 123 L D MPV 10.5 Absolute Nucleated RBC 0.000 Nucleated RBC % (auto) 0.0 POC Glucose 258 H 242 H Total Bilirubin Direct Bilirubin AST ALT Alkaline Phosphatase Total Protein Albumin 03/30/21 03/30/21 03/30/21 06:58 07:21 12:13 WBC RBC Hgb Hct MCV MCH MCHC RDW Plt Count MPV Absolute Nucleated RBC Nucleated RBC % (auto) POC Glucose 217 H 221 H Total Bilirubin 5.6 H Direct Bilirubin 3.5 H AST 80 H ALT 52 H Alkaline Phosphatase 153 H Total Protein 5.7 L Albumin 2.4 L Assessment and Plan (1) Anemia: Qualifiers: Anemia type: other cause Other causes of anemia: acute posthemorrhagic Qualified Code(s): D62 - Acute posthemorrhagic anemia Status: Acute (2) Elevated liver enzymes: Status: Acute (3) Malnutrition: Status: Acute (4) Atrial fibrillation: Qualifiers: Atrial fibrillation type: paroxysmal Qualified Code(s): I48.0 - Paroxysmal atrial fibrillation Status: Acute Pleasant 81-year-old gentleman with background of atrial fibrillation and has been on amiodarone and Eliquis. He is presenting with rectal bleeding due to radiation proctitis and anemia. He has some dyspnea on exertion which is likely due to anemia but overall not in congestive heart failure. I think it is this is appropriate to hold his Eliquis at this stage. He had elevated liver enzymes. I think we should hold amiodarone for now. Amiodarone has a long half-life. I think we should repeat LFTs to see if they were improving because if they improve is a next few days then there are unlikely to be related with amiodarone because amiodarone has a long half-life for approximately 60 days and is still present in his body. Thank you for allowing me to participate in the care of your patient. Please feel free to contact me if you have any questions. Procedures Date of Service Date of Service: 03/30/21
--- NOTE | 2021-03-30 12:39 | P.PNIM_ITS ---
Subjective Subjective Date of Service: 03/30/21 Interval History: Seen and examined this morning, follow up for GI bleeding Had some blood streaks on toilet paper earlier this morning Urine noticed to be rust colored, no urinary symptoms Patient reports improvement in epigastric abdominal pain Review of Systems Review of Systems: Yes all other systems are reviewed and are negative Constitutional Constitutional: Denies chills and Denies fever(s) Cardiovascular Cardiovascular: Denies chest pain Respiratory Respiratory: Denies cough Gastrointestinal Gastrointestinal: Denies abdominal pain Physical Exam Vital Signs: Vital Signs: Last Vital Signs Temp 98.1 F 03/30/21 11:42 Pulse 86 03/30/21 11:42 Resp 19 03/30/21 11:42 BP 99/44 L 03/30/21 11:42 Pulse Ox 91 L 03/30/21 11:42 Body Mass Index 28.3 Const: General: comfortable, alert and awake Nutritional Appearance: well nourished Orientation/consciousness: patient oriented x3 HENMT: Head: Yes normocephalic and Yes atraumatic Eyes: Sclerae: sclerae normal Pupils: Equal, round and reactive pupils present Chest: Chest palpation & inspection: normal inspection of the chest Resp: Effort & Inspection: normal respiratory effort and no respiratory distress Cardio: Rate: regular rate Rhythm: regular rhythm GI: Palpation (GI): Soft to palpation and nontender Skin: Other: pale Neuro: General: patient oriented x3 Cranial nerves: Yes CN's II-XII intact bilaterally, Yes Equal, round and reactive pupils present and Yes Bilaterally intact EOM present Objective Data Active Medications Acetaminophen (Acetaminophen 325 Mg Tablet) 650 mg PO Q6H PRN PRN Reason: Pain, Mild (Pain Scale 1-3) Dextrose (Dextrose 50 % 25 Gm/50 Ml Vial) 25 gm IVPUSH Q15M PRN; Protocol PRN Reason: per Hypoglycemia Standing Ord. Glucose (Glucose Gel 15 Gm Gel..Gram.) 15 gm PO Q15M PRN; Protocol PRN Reason: per Hypoglycemia Standing Ord. Insulin Human Lispro (Insulin Lispro 100 Unit/Ml 3 Ml Vial) 0 unit SUBCUT QIDACHS [facility]; Protocol Last Admin: 03/30/21 12:20 Dose: 4 unit Documented by: RADHA Omeprazole (Omeprazole 20 Mg Alex.) 20 mg PO DAILY@0630 [facility] Last Admin: 03/30/21 05:51 Dose: 20 mg Documented by: MARILIN Ondansetron HCl (Ondansetron Hcl 4 Mg/2 Ml Vial) 4 mg IVPUSH Q4H PRN PRN Reason: GI Upset Last Admin: 03/28/21 07:49 Dose: 4 mg Documented by: MEGHAN Ondansetron HCl (Ondansetron Hcl 4 Mg/2 Ml Vial) 4 mg IVPUSH ONCE PRN PRN Reason: Nausea and Vomiting Last Admin: 03/28/21 22:59 Dose: 4 mg Documented by: WILL Pharmacy Consult (Consult Rx Perform Med Rec) 1 each MISCELLANE ONCE PRN PRN Reason: Consult order Polyethylene Glycol (Polyethylene Glycol 3350 17 Gm Powd.Pack) 17 gm PO DAILY [facility] Last Admin: 03/30/21 08:13 Dose: 17 gm Documented by: RADHA Pramoxine HCl (Pramoxine Hcl 1 % Rectal Foam 15 Gm) 1 appl NM BID [facility] Last Admin: 03/30/21 08:14 Dose: 1 appl Documented by: RADHA Sodium Chloride (0.9 % Sodium Chloride Flush 3 Ml Syringe) 3 ml IVFLUSH QSHIFT [facility] Last Admin: 03/30/21 08:14 Dose: 3 ml Documented by: RADHA Vitamin D (Cholecalciferol (Vitamin D3) 25 Mcg Tablet) 25 mcg PO DAILY [facility] Last Admin: 03/30/21 08:13 Dose: 25 mcg Documented by: RADHA Labs CBC & Chem 7: 03/30/21 06:58 03/29/21 05:59 Labs: Laboratory Results - last 24 hr 03/29/21 03/29/21 03/30/21 16:06 20:00 06:58 MCV 99.2 H MCH 32.9 MCHC 33.2 RDW 16.3 H Plt Count 123 L D MPV 10.5 Absolute Nucleated RBC 0.000 Nucleated RBC % (auto) 0.0 POC Glucose 258 H 242 H Total Bilirubin Direct Bilirubin AST ALT Alkaline Phosphatase Total Protein Albumin 03/30/21 03/30/21 03/30/21 06:58 07:21 12:13 MCV MCH MCHC RDW Plt Count MPV Absolute Nucleated RBC Nucleated RBC % (auto) POC Glucose 217 H 221 H Total Bilirubin 5.6 H Direct Bilirubin 3.5 H AST 80 H ALT 52 H Alkaline Phosphatase 153 H Total Protein 5.7 L Albumin 2.4 L Assessment and Plan (1) Anemia: Status: Acute (2) Rectal bleed: Status: Acute (3) Elevated liver enzymes: Status: Acute Assessment and Plan: 81-year-old man admitted with GI bleed. GI bleed.? H/H trending down s/p endoscopy and colonoscopy 03/29 results below Endoscopy findings showed mild GAVE, varices, candidiasis Colonoscopy findings showed actively bleeding radiation proctitis, there was persistent oozing of blood from the ectatic lesion in the rectum, rectal bleeding was treated with hemo spray -proctofoam BID x 4 weeks -follow up biopsy results to determine need for treatment for candidiasis If H&H continues to trend down despite transfusion, GI recommends re-prep on Friday night for repeat colonoscopy on Friday Anemia. Secondary to GI bleed H&H similar to yesterday despite blood transfusion on 03/29 Will transfuse 2 units Follow CBC Transaminitis.? Has been elevated for several months. Abdominal MRI in February showed hepatic cyst similar to previous although the liver is normal in size, smooth and no evidence of hepatic steatosis. May be r/t amiodorone use - cardiology recommends to continue to hold amio Consider heme evaluation as outpatient CKD4 Creatinine within baseline Follow BMP Atrial fibrillation.? Controlled Hold Eliquis Hold metoprolol due to soft BP Amiodorone on hold since admission Diabetes mellitus ADA diet, Sliding scale DVT prophylaxis with early ambulation, scd boots Attending Dr. Gutierrez Quality Stroke Does the patient have a stroke diagnosis?: No VTE Prior VTE?: No VTE Risk Level:: Medical - moderate - high VTE Device Contraindication: N/A - Device Ordered VTE Drug Contraindication: Treatment Not Indicated
--- NOTE | 2021-03-30 12:55 | MHC.CM.PN ---
per tommy ,pt is bleeding and not ready for dc
[2021-03-30 17:03] LABS: Glucose, Whole Blood 232 mg/dL (60-115)
[2021-03-30 20:33] LABS: Glucose, Whole Blood 273 mg/dL (60-115)
--- NOTE | 2021-03-30 23:44 | P.EN_ITS ---
Event Note Date of Service: 03/30/21 Event Note: Confusion: Question . Will obtain CT head. Fall preca utions. Spoke to the RN for safety precautions.
--- NOTE | 2021-03-30 23:44 | PM.EVENT ---
Event Note Date of Service: 03/30/21 Event Note: Confusion: Question . Will obtain CT head. Fall precautions. Spoke to the RN for safety precautions.
[2021-03-31 04:00] VITALS: BP 101/53; PULSE 84; RESP 18; TEMP 36.6; O2SAT 93
[2021-03-31] MEDS: Omeprazole 20 MG CAPSULE.DR PO (05:51)
[2021-03-31 06:31] LABS: Hematocrit 27.4 % (42-52); Hemoglobin 9.3 g/dl (14.0-18.0); Mean Corpuscular HGB Conc 33.9 g/dl (31.0-36.0); Mean Corpuscular Volume 97.2 fL (80-98); Mean Platelet Volume 10.4 fL (9.4-12.4); NRBC Pct Auto 0.2 /100WBC (0.0-0.2); Platelet Count 115 X10*3/uL (160-400); Red Blood Count 2.82 X10*6/uL (4.60-5.80); Red Cell Distribution Width 15.9 % (11.0-16.0); White Blood Count 8.2 X10*3/uL (4.8-10.8)
[2021-03-31 06:56] LABS: Appearance Urine HAZY; Color Urine DK YELLOW; Glucose Urine UA NEG (NEG); Leukocyte Esterase Urine NEG (NEG); Nitrite Urine NEG (NEG); PH 5.5 (5.0-8.0); Specific Gravity - Urine 1.025 (1.005-1.025); UACC Culture Trigger NO; Urine Blood NEG (NEG); Urine Ketones NEG (NEG); Urine Protein 1+ MG/DL (NEG-TRACE)
[2021-03-31 07:03] LABS: Anion Gap 15 (12-20); Blood Urea Nitrogen 55 mg/dL (9-16); Calcium 8.6 mg/dL (8.4-10.2); Carbon Dioxide 20 mmol/L (22-29); Chloride 97 mmol/L (96-108); Creatinine Clr Calc Pharmacy 19.9; Estimated Glomerular Filt Rate 20; Glucose Random 238 mg/dL (60-115); Potassium 4.1 mmol/L (3.3-5.1); Sodium 128 mmol/L (135-145)
[2021-03-31 07:11] LABS: RBC Urine 0-2 /HPF (0); WBC Urine 0 /HPF (0-4)
[2021-03-31 07:12] LABS: Amorphous Sediment Urine 1+ /LPF
[2021-03-31 07:22] VITALS: BP 105/53; PULSE 84; RESP 18; TEMP 36.1; O2SAT 91
[2021-03-31 07:22] LABS: Glucose, Whole Blood 254 mg/dL (60-115)
[2021-03-31] MEDS: polyethylene glycoL 3350 17 GM POWD.PACK PO (07:54)
[2021-03-31] MEDS: 0.9 % Sodium Chloride Flush 3 ML SYRINGE IVFLUSH ×2 (07:54→17:22)
[2021-03-31] MEDS: Insulin Lispro 100 UNIT/ML 3 ML VIAL SUBCUT ×4 (07:54→21:42)
[2021-03-31] MEDS: Cholecalciferol (Vitamin D3) 25 MCG TABLET PO (07:54)
[2021-03-31] MEDS: Pramoxine HCl 1 % Rectal Foam 15 GM 1 APPL PR ×2 (07:54→21:44)
[2021-03-31 10:50] LABS: Osmolality, Serum 300 mosm/kg (281-305)
[2021-03-31] MEDS: 0.9 % Sodium Chloride 1,000 ML 75 ML IVCONT ×2 (10:50→21:46)
[2021-03-31 11:15] LABS: Anion Gap 15 (12-20); Blood Urea Nitrogen 54 mg/dL (9-16); Calcium 8.3 mg/dL (8.4-10.2); Carbon Dioxide 20 mmol/L (22-29); Chloride 96 mmol/L (96-108); Creatinine Clr Calc Pharmacy 19.8; Estimated Glomerular Filt Rate 20; Glucose Random 256 mg/dL (60-115); Potassium 4.3 mmol/L (3.3-5.1); Sodium 127 mmol/L (135-145)
[2021-03-31 11:15] LABS: Glucose, Whole Blood 225 mg/dL (60-115)
[2021-03-31 11:25] VITALS: BP 100/48; PULSE 85; RESP 18; TEMP 36.2; O2SAT 92
--- NOTE | 2021-03-31 13:09 | P.PNIM_ITS ---
Progress Note: A&P (1) Anemia: Status: Acute (2) Occult GI bleeding: Status: Acute Assessment and Plan: 81-year-old man admitted with GI bleed. GI bleed.? H/H better today s/p endoscopy and colonoscopy 03/29 results below Endoscopy findings showed mild GAVE, varices, candidiasis Colonoscopy findings showed actively bleeding radiation proctitis, there was persistent oozing of blood from the ectatic lesion in the rectum, rectal ble eding was treated with hemo spray -proctofoam BID x 4 weeks -follow up biopsy results to determine need for treatment for candidiasis If H&H continues to trend down despite transfusion, GI recommends re-prep on Friday night for repeat colonoscopy on Friday Anemia.? Secondary to GI bleed Has received 5 units of packed red blood cells since admission Follow CBC and transfuse as necessary Transaminitis.? Has been elevated for several months. Abdominal MRI in February showed hepatic cyst similar to previous although the liver is normal in size, smooth and no evidence of hepatic steatosis. May be r/t amiodorone use - cardiology recommends to continue to hold amio Consider heme evaluation as outpatient CKD4 Creatinine within baseline Follow BMP Atrial fibrillation.? Controlled Hold Eliquis Hold metoprolol due to soft BP Amiodorone on hold since admission Diabetes mellitus ADA diet, Sliding scale DVT prophylaxis with early ambulation, scd boots Attending Dr. Kearney Subjective Subjective Date of Service: 04/01/21 Review of Systems Follow up GI bleed, anemia Feeling okay today Denies chest pain, shortness of breath, nausea, vomiting, diarrhea, abdominal pain Physical Exam Vital Signs: Vital Signs: Last Vital Signs Temp 97.1 F 03/31/21 11:25 Pulse 85 03/31/21 11:25 Resp 18 03/31/21 11:25 BP 100/48 L 03/31/21 11:25 Pulse Ox 92 03/31/21 11:25 Body Mass Index 28.3 Appearing in no acute distress lung sounds are clear to auscultation heart regular rate rhythm, clear S1, S2 positive bowel sounds, abdomen is soft, nontender neuro patient is alert x3, no focal deficits Objective Data Current Medications Acetaminophen (Acetaminophen 325 Mg Tablet) 650 mg PO Q6H PRN PRN Reason: Pain, Mild (Pain Scale 1-3) Dextrose (Dextrose 50 % 25 Gm/50 Ml Vial) 25 gm IVPUSH Q15M PRN; Protocol PRN Reason: per Hypoglycemia Standing Ord. Glucose (Glucose Gel 15 Gm Gel..Gram.) 15 gm PO Q15M PRN; Protocol PRN Reason: per Hypoglycemia Standing Ord. Sodium Chloride (Ns) 1,000 mls @ 75 mls/hr IVCONT .[id number] [facility] Last Admin: 03/31/21 10:50 Dose: 75 mls/hr Documented by: Insulin Human Lispro (Insulin Lispro 100 Unit/Ml 3 Ml Vial) 0 unit SUBCUT QIDACHS [facility]; Protocol Last Admin: 03/31/21 12:00 Dose: 6 unit Documented by: Omeprazole (Omeprazole 20 Mg Capsule.Dr) 20 mg PO DAILY@0630 [facility] Last Admin: 03/31/21 05:51 Dose: 20 mg Documented by: Ondansetron HCl (Ondansetron Hcl 4 Mg/2 Ml Vial) 4 mg IVPUSH Q4H PRN PRN Reason: GI Upset Last Admin: 03/28/21 07:49 Dose: 4 mg Documented by: Ondansetron HCl (Ondansetron Hcl 4 Mg/2 Ml Vial) 4 mg IVPUSH ONCE PRN PRN Reason: Nausea and Vomiting Last Admin: 03/28/21 22:59 Dose: 4 mg Documented by: Pharmacy Consult (Consult Rx Perform Med Rec) 1 each MISCELLANE ONCE PRN PRN Reason: Consult order Polyethylene Glycol (Polyethylene Glycol 3350 17 Gm Powd.Pack) 17 gm PO DAILY [facility] Last Admin: 03/31/21 07:54 Dose: 17 gm Documented by: Pramoxine HCl (Pramoxine Hcl 1 % Rectal Foam 15 Gm) 1 appl [place] BID [facility] Last Admin: 03/31/21 07:54 Dose: 1 appl Documented by: Sodium Chloride (0.9 % Sodium Chloride Flush 3 Ml Syringe) 3 ml IVFLUSH QSHIFT [facility] Last Admin: 03/31/21 07:54 Dose: 3 ml Documented by: Vitamin D (Cholecalciferol (Vitamin D3) 25 Mcg Tablet) 25 mcg PO DAILY [facility] Last Admin: 03/31/21 07:54 Dose: 25 mcg Documented by: Labs CBC & Chem 7: 04/01/21 08:36 04/01/21 08:36 Labs: Laboratory Results - last 24 hr 03/30/21 03/30/21 03/30/21 13:01 16:37 20:26 MCV MCH MCHC RDW Plt Count MPV Absolute Nucleated RBC Nucleated RBC % (auto) Anion Gap Estim Creat Clear Calc Estimated GFR POC Glucose 232 H 273 H Random Glucose Osmolality Calcium Urine Color Urine Appearance Urine pH Ur Specific [place] Urine Protein Urine Glucose (UA) Urine Ketones Urine Blood Urine Nitrite Ur Leukocyte Esterase Urine RBC Urine WBC Ur Squamous Epith Cells Amorphous Sediment Urine Bacteria Granular Casts Blood Type O Negative Antibody Screen NEGATIVE Crossmatch See Detail 03/31/21 03/31/21 03/31/21 06:00 06:05 06:05 MCV 97.2 MCH 33.0 MCHC 33.9 RDW 15.9 Plt Count 115 L MPV 10.4 Absolute Nucleated RBC 0.020 H Nucleated RBC % (auto) 0.2 Anion Gap 15 Estim Creat Clear Calc 19.9 Estimated GFR 20 POC Glucose Random Glucose 238 H Osmolality Calcium 8.6 Urine Color DK YELLOW Urine Appearance HAZY Urine pH 5.5 Ur Specific [place] 1.025 Urine Protein 1+ H Urine Glucose (UA) NEG Urine Ketones NEG Urine Blood NEG Urine Nitrite NEG Ur Leukocyte Esterase NEG Urine RBC 0-2 Urine WBC 0 Ur Squamous Epith Cells NONE Amorphous Sediment 1+ Urine Bacteria NONE Granular Casts 1-4 Blood Type Antibody Screen Crossmatch 03/31/21 03/31/21 03/31/21 06:05 07:04 10:38 MCV MCH MCHC RDW Plt Count MPV Absolute Nucleated RBC Nucleated RBC % (auto) Anion Gap 15 Estim Creat Clear Calc 19.8 Estimated GFR 20 POC Glucose 254 H Random Glucose 256 H Osmolality 300 Calcium 8.3 L Urine Color Urine Appearance Urine pH Ur Specific [place] Urine Protein Urine Glucose (UA) Urine Ketones Urine Blood Urine Nitrite Ur Leukocyte Esterase Urine RBC Urine WBC Ur Squamous Epith Cells Amorphous Sediment Urine Bacteria Granular Casts Blood Type Antibody Screen Crossmatch 03/31/21 11:01 MCV MCH MCHC RDW Plt Count MPV Absolute Nucleated RBC Nucleated RBC % (auto) Anion Gap Estim Creat Clear Calc Estimated GFR POC Glucose 225 H Random Glucose Osmolality Calcium Urine Color Urine Appearance Urine pH Ur Specific [place] Urine Protein Urine Glucose (UA) Urine Ketones Urine Blood Urine Nitrite Ur Leukocyte Esterase Urine RBC Urine WBC Ur Squamous Epith Cells Amorphous Sediment Urine Bacteria Granular Casts Blood Type Antibody Screen Crossmatch Quality Stroke Does the patient have a stroke diagnosis?: No VTE Prior VTE?: No VTE Risk Level:: Medical - moderate - high VTE Device Contraindication: N/A - Device Ordered VTE Drug Contraindication: Treatment Not Indicated
[2021-03-31 15:21] LABS: Anion Gap 13 (12-20); Blood Urea Nitrogen 52 mg/dL (9-16); Calcium 8.1 mg/dL (8.4-10.2); Carbon Dioxide 20 mmol/L (22-29); Chloride 97 mmol/L (96-108); Creatinine Clr Calc Pharmacy 20.6; Estimated Glomerular Filt Rate 20; Glucose Random 218 mg/dL (60-115); Potassium 3.9 mmol/L (3.3-5.1); Sodium 126 mmol/L (135-145)
[2021-03-31 16:00] VITALS: BP 107/54; PULSE 84; RESP 18; TEMP 36.4; O2SAT 93
[2021-03-31 17:03] LABS: Glucose, Whole Blood 219 mg/dL (60-115)
[2021-03-31 20:00] VITALS: BP 108/54; PULSE 85; RESP 20; TEMP 36.8; O2SAT 94
[2021-03-31 21:08] LABS: Glucose, Whole Blood 213 mg/dL (60-115)
[2021-03-31 23:29] VITALS: BP 108/51; PULSE 84; RESP 14; TEMP 36.9; O2SAT 92
[2021-04-01 03:27] VITALS: BP 112/56; PULSE 86; RESP 18; TEMP 36.9; O2SAT 94
[2021-04-01 04:44] LABS: Potassium Urine Random 44.1 mmol/L; Sodium Urine Random < 20.0 mmol/L
[2021-04-01 04:48] LABS: Osmolality Urine 521 mosm/kg (373-1093)
[2021-04-01 05:08] LABS: Chloride Urine Random < 20.0 mmol/L
[2021-04-01] MEDS: Omeprazole 20 MG CAPSULE.DR PO (06:16)
[2021-04-01 07:08] LABS: Glucose, Whole Blood 132 mg/dL (60-115)
[2021-04-01 07:21] VITALS: BP 110/56; PULSE 84; RESP 18; O2SAT 93
--- NOTE | 2021-04-01 07:42 | PC.NURSE ---
Overnight, patient became SOB while talking. O2 sat 94%. Fine crackles in the bases. BL LE +1 pitting edema. Hx of CHF. Patient had NS running at 75mls/hr, which began yesterday for a low sodium. MD notified, IV fluids paused and stat chest xray ordered
[2021-04-01 08:57] LABS: Hematocrit 27.6 % (42-52); Hemoglobin 9.2 g/dl (14.0-18.0); Mean Corpuscular HGB Conc 33.3 g/dl (31.0-36.0); Mean Corpuscular Hemoglobin 33.2 pg (27.0-33.0); Mean Corpuscular Volume 99.6 fL (80-98); Mean Platelet Volume 10.8 fL (9.4-12.4); Platelet Count 119 X10*3/uL (160-400); Red Blood Count 2.77 X10*6/uL (4.60-5.80); Red Cell Distribution Width 16.1 % (11.0-16.0); White Blood Count 8.2 X10*3/uL (4.8-10.8)
[2021-04-01 09:19] LABS: Alanine Aminotransferase 45 U/L (0-40); Albumin Level 2.4 g/dL (3.5-5.0); Alkaline Phosphatase 192 U/L (39-117); Anion Gap 13 (12-20); Aspartate Amino Transferase 73 U/L (5-37); Bilirubin Direct 4.4 mg/dL (0.0-0.5); Bilirubin Total 6.6 mg/dL (0.0-1.0); Blood Urea Nitrogen 54 mg/dL (9-16); Calcium 8.2 mg/dL (8.4-10.2); Carbon Dioxide 21 mmol/L (22-29); Chloride 98 mmol/L (96-108); Estimated Glomerular Filt Rate 22; Glucose Random 180 mg/dL (60-115); Potassium 4.5 mmol/L (3.3-5.1); Sodium 127 mmol/L (135-145); Total Protein 5.8 g/dL (6.5-8.0)
[2021-04-01 09:24] LABS: B Type Natriuretic Peptide 4448 pg/mL (<100)
[2021-04-01] MEDS: Cholecalciferol (Vitamin D3) 25 MCG TABLET PO (09:52)
[2021-04-01] MEDS: Furosemide 20 MG/2 ML VIAL IVPUSH ×2 (09:52→17:07)
[2021-04-01] MEDS: 0.9 % Sodium Chloride Flush 3 ML SYRINGE IVFLUSH ×3 (09:53→21:29)
[2021-04-01] MEDS: Pramoxine HCl 1 % Rectal Foam 15 GM 1 APPL PR ×2 (09:53→21:13)
[2021-04-01 11:08] LABS: Glucose, Whole Blood 161 mg/dL (60-115)
[2021-04-01 11:10] VITALS: BP 111/53; PULSE 86; RESP 18; TEMP 36.3; O2SAT 94
--- NOTE | 2021-04-01 12:27 | P.PNIM_ITS ---
Progress Note: A&P (1) Anemia: Status: Acute (2) Acute congestive heart failure: Status: Acute (3) Hyponatremia: Status: Acute (4) Rectal bleed: Status: Acute Assessment and Plan: 81-year-old man admitted with GI bleed. Acute congestive heart failure. Likely from IV fluids Lasix 20 mg IV twice daily Follow intake and output closely Daily weights echo Hyponatremia. May be secondary to heart failure. Continue diuresis and follow BMP closely GI bleed.? H/H better today, reports 1 episode of bloody stool today s/p endoscopy and colonoscopy 03/29 results below Endoscopy findings showed mild GAVE, varices, candidiasis Colonoscopy findings showed actively bleeding radiation proctitis, there was persistent oozing of blood from the ectatic lesion in the rectum, rectal bleeding was treated with hemo spray -proctofoam BID x 4 weeks -follow up biopsy results to determine need for treatment for candidiasis If H&H continues to trend down despite transfusion, GI recommends re-prep on Friday night for repeat colonoscopy on Friday Anemia.? Secondary to GI bleed Has received 5 units of packed red blood cells since admission Follow CBC and transfuse as necessary Transaminitis.? Has been elevated for several months. Abdominal MRI in February showed hepatic cyst similar to previous although the liver is normal in size, smooth and no evidence of hepatic steatosis. May be r/t amiodorone use - cardiology recommends to continue to hold amio Consider heme evaluation as outpatient CKD4 Creatinine within baseline Follow BMP Atrial fibrillation.? Controlled Hold Eliquis, discussed with GI when to continue Hold metoprolol due to soft BP Amiodorone on hold since admission Diabetes mellitus ADA diet, Sliding scale DVT prophylaxis with early ambulation, scd boots Attending Dr. Kearney Subjective Subjective Date of Service: 04/01/21 Review of Systems follow-up anemia, GI bleed, Hyponatremia, now with congestive heart failure Had some shortness of breath Denied chest pain, nausea, vomiting, diarrhea Physical Exam Vital Signs: Vital Signs: Last Vital Signs Temp 97.4 F 04/01/21 11:10 Pulse 86 04/01/21 11:10 Resp 18 04/01/21 11:10 BP 111/53 L 04/01/21 11:10 Pulse Ox 94 04/01/21 11:10 Body Mass Index 28.3 Appearing in no acute distress lung sounds rales heart regular rate rhythm, clear S1, S2 positive bowel sounds, abdomen is soft, nontender neuro patient is alert x3, no focal deficits Objective Data Current Medications Acetaminophen (Acetaminophen 325 Mg Tablet) 650 mg PO Q6H PRN PRN Reason: Pain, Mild (Pain Scale 1-3) Dextrose (Dextrose 50 % 25 Gm/50 Ml Vial) 25 gm IVPUSH Q15M PRN; Protocol PRN Reason: per Hypoglycemia Standing Ord. Furosemide (Furosemide 20 Mg/2 Ml Vial) 20 mg IVPUSH BID@0900,1800 [facility]; Protoco l Glucose (Glucose Gel 15 Gm Gel..Gram.) 15 gm PO Q15M PRN; Protocol PRN Reason: per Hypoglycemia Standing Ord. Insulin Human Lispro (Insulin Lispro 100 Unit/Ml 3 Ml Vial) 0 unit SUBCUT QIDACHS [facility]; Protocol Last Admin: 04/01/21 11:25 Dose: Not Given Documented by: Omeprazole (Omeprazole 20 Mg Capsule.) 20 mg PO DAILY@0630 [facility] Last Admin: 04/01/21 06:16 Dose: 20 mg Documented by: Ondansetron HCl (Ondansetron Hcl 4 Mg/2 Ml Vial) 4 mg IVPUSH Q4H PRN PRN Reason: GI Upset Last Admin: 03/28/21 07:49 Dose: 4 mg Documented by: Ondansetron HCl (Ondansetron Hcl 4 Mg/2 Ml Vial) 4 mg IVPUSH ONCE PRN PRN Reason: Nausea and Vomiting Last Admin: 03/28/21 22:59 Dose: 4 mg Documented by: Pharmacy Consult (Consult Rx Perform Med Rec) 1 each MISCELLANE ONCE PRN PRN Reason: Consult order Polyethylene Glycol (Polyethylene Glycol 3350 17 Gm Powd.Pack) 17 gm PO DAILY [facility] Last Admin: 04/01/21 09:53 Dose: Not Given Documented by: Pramoxine HCl (Pramoxine Hcl 1 % Rectal Foam 15 Gm) 1 appl [place] BID [facility] Last Admin: 04/01/21 09:53 Dose: 1 appl Documented by: Sodium Chloride (0.9 % Sodium Chloride Flush 3 Ml Syringe) 3 ml IVFLUSH QSHIFT [facility] Last Admin: 04/01/21 09:53 Dose: 3 ml Documented by: Vitamin D (Cholecalciferol (Vitamin D3) 25 Mcg Tablet) 25 mcg PO DAILY [facility] Last Admin: 04/01/21 09:52 Dose: 25 mcg Documented by: Labs CBC & Chem 7: 04/01/21 08:36 04/01/21 08:36 Labs: Laboratory Results - last 24 hr 03/31/21 03/31/21 03/31/21 14:56 16:55 20:37 MCV MCH MCHC RDW Plt Count MPV Absolute Nucleated RBC Nucleated RBC % (auto) Anion Gap 13 Estim Creat Clear Calc 20.6 Estimated GFR 20 POC Glucose 219 H 213 H Random Glucose 218 H Calcium 8.1 L Total Bilirubin Direct Bilirubin AST ALT Alkaline Phosphatase B-Natriuretic Peptide Total Protein Albumin Urine Osmolality Ur Random Sodium Ur Random Potassium Ur Random Chloride 04/01/21 04/01/21 04/01/21 03:20 03:20 06:56 MCV MCH MCHC RDW Plt Count MPV Absolute Nucleated RBC Nucleated RBC % (auto) Anion Gap Estim Creat Clear Calc Estimated GFR POC Glucose 132 H Random Glucose Calcium Total Bilirubin Direct Bilirubin AST ALT Alkaline Phosphatase B-Natriuretic Peptide Total Protein Albumin Urine Osmolality 521 Ur Random Sodium < 20.0 Ur Random Potassium 44.1 Ur Random Chloride < 20.0 04/01/21 04/01/21 04/01/21 08:36 08:36 08:36 MCV 99.6 H MCH 33.2 H MCHC 33.3 RDW 16.1 H Plt Count 119 L MPV 10.8 Absolute Nucleated RBC 0.000 Nucleated RBC % (auto) 0.0 Anion Gap 13 Estim Creat Clear Calc 22.0 Estimated GFR 22 POC Glucose Random Glucose 180 H Calcium 8.2 L Total Bilirubin 6.6 H Direct Bilirubin 4.4 H AST 73 H ALT 45 H Alkaline Phosphatase 192 H D B-Natriuretic Peptide 4448 H Total Protein 5.8 L Albumin 2.4 L Urine Osmolality Ur Random Sodium Ur Random Potassium Ur Random Chloride 04/01/21 10:57 MCV MCH MCHC RDW Plt Count MPV Absolute Nucleated RBC Nucleated RBC % (auto) Anion Gap Estim Creat Clear Calc Estimated GFR POC Glucose 161 H Random Glucose Calcium Total Bilirubin Direct Bilirubin AST ALT Alkaline Phosphatase B-Natriuretic Peptide Total Protein Albumin Urine Osmolality Ur Random Sodium Ur Random Potassium Ur Random Chloride Quality Stroke Does the patient have a stroke diagnosis?: No VTE Prior VTE?: No VTE Risk Level:: Medical - moderate - high VTE Device Contraindication: N/A - Device Ordered VTE Drug Contraindication: Treatment Not Indicated
[2021-04-01 15:07] VITALS: BP 109/57; PULSE 85; RESP 20; TEMP 36.3; O2SAT 94
[2021-04-01 16:50] LABS: Glucose, Whole Blood 184 mg/dL (60-115)
[2021-04-01] MEDS: Insulin Lispro 100 UNIT/ML 3 ML VIAL SUBCUT (17:07)
[2021-04-01 19:22] VITALS: BP 106/52; PULSE 82; RESP 18; TEMP 36.4; O2SAT 95
[2021-04-01 20:22] LABS: Glucose, Whole Blood 143 mg/dL (60-115)
[2021-04-02] VITALS (9 sets, daily range): BP systolic 99–129; BP diastolic 46–61; PULSE 81–92; RESP 17–20; TEMP 36.7–37.2; O2SAT 93–97
[2021-04-02 05:48] LABS: Hematocrit 27.3 % (42-52); Hemoglobin 9.2 g/dl (14.0-18.0); Mean Corpuscular HGB Conc 33.7 g/dl (31.0-36.0); Mean Corpuscular Hemoglobin 33.5 pg (27.0-33.0); Mean Corpuscular Volume 99.3 fL (80-98); Mean Platelet Volume 10.5 fL (9.4-12.4); Platelet Count 124 X10*3/uL (160-400); Red Blood Count 2.75 X10*6/uL (4.60-5.80); Red Cell Distribution Width 17.2 % (11.0-16.0)
[2021-04-02 06:04] LABS: Anion Gap 13 (12-20); B Type Natriuretic Peptide 3839 pg/mL (<100); Blood Urea Nitrogen 51 mg/dL (9-16); Carbon Dioxide 20 mmol/L (22-29); Chloride 98 mmol/L (96-108); Creatinine Clr Calc Pharmacy 22.8; Estimated Glomerular Filt Rate 23; Glucose Random 210 mg/dL (60-115); Potassium 4.4 mmol/L (3.3-5.1); Sodium 127 mmol/L (135-145)
[2021-04-02] MEDS: Omeprazole 20 MG CAPSULE.DR PO (06:26)
[2021-04-02 07:33] LABS: Glucose, Whole Blood 174 mg/dL (60-115)
[2021-04-02] MEDS: 0.9 % Sodium Chloride Flush 3 ML SYRINGE IVFLUSH ×3 (08:01→20:38)
[2021-04-02] MEDS: Insulin Lispro 100 UNIT/ML 3 ML VIAL SUBCUT ×4 (08:01→20:37)
[2021-04-02] MEDS: Furosemide 20 MG/2 ML VIAL IVPUSH ×2 (08:02→17:42)
[2021-04-02] MEDS: Cholecalciferol (Vitamin D3) 25 MCG TABLET PO (08:02)
[2021-04-02] MEDS: Pramoxine HCl 1 % Rectal Foam 15 GM 1 APPL PR ×2 (08:14→20:37)
--- NOTE | 2021-04-02 11:27 | PM.IMPN ---
Progress Note: A&P (1) Hyponatremia: Status: Acute (2) Acute congestive heart failure: Status: Acute (3) Anemia: Status: Acute (4) Rectal bleed: Status: Acute Assessment and Plan: 81-year-old man admitted with GI bleed. Acute congestive heart failure.? Likely from IV fluids Lasix 20 mg IV twice daily Follow intake and output closely Daily weights echo cardio to follow Hyponatremia.? May be secondary to heart failure.? Continue diuresis and follow BMP closely Nephrology consult GI bleed.? H/H better today s/p endoscopy and colonoscopy 03/29 results below Endoscopy findings showed mild GAVE, varices, candidiasis Colonoscopy findings showed actively bleeding radiation proctitis, there was persistent oozing of blood from the ectatic lesion in the rectum, rectal bleeding was treated with hemo spray -proctofoam BID x 4 weeks -follow up biopsy results to determine need for treatment for candidiasis If H&H continues to trend down despite transfusion, GI recommends re-prep on Friday night for repeat colonoscopy on Friday Anemia.? Secondary to GI bleed. Stable HH Has received 5 units of packed red blood cells since admission Follow CBC and transfuse as necessary Transaminitis.? Has been elevated for several months. Abdominal MRI in February showed hepatic cyst similar to previous although the liver is normal in size, smooth and no evidence of hepatic steatosis. May be r/t amiodorone use - cardiology recommends to continue to hold amio Consider heme evaluation as outpatient CKD4 Creatinine within baseline Follow BMP Atrial fibrillation.? Controlled Hold Eliquis, discussed with GI when to continue Hold metoprolol due to soft BP Amiodorone on hold since admission Diabetes mellitus ADA diet, Sliding scale DVT prophylaxis with early ambulation, scd boots Attending Dr. Gutierrez Subjective Subjective Date of Service: 04/02/21 Review of Systems Follow up GI bleed, hyponatremia, congestive heart failure Feeling better today, not short of breath Denies chest pain, abdominal pain, nausea, vomiting, diarrhea Physical Exam Vital Signs: Vital Signs: Last Vital Signs Temp 98.6 F 04/02/21 10:57 Pulse 82 04/02/21 10:57 Resp 18 04/02/21 10:57 BP 105/53 L 04/02/21 10:57 Pulse Ox 97 04/02/21 10:57 Body Mass Index 28.3 Appearing in no acute distress JVD lung sounds are clear to auscultation heart regular rate rhythm, clear S1, S2 positive bowel sounds, abdomen is soft, nontender neuro patient is alert x3, no focal deficits LE edema Objective Data Current Medications Acetaminophen (Acetaminophen 325 Mg Tablet) 650 mg PO Q6H PRN PRN Reason: Pain, Mild (Pain Scale 1-3) Dextrose (Dextrose 50 % 25 Gm/50 Ml Vial) 25 gm IVPUSH Q15M PRN; Protocol PRN Reason: per Hypoglycemia Standing Ord. Furosemide (Furosemide 20 Mg/2 Ml Vial) 20 mg IVPUSH BID@0900,1800 [facility]; Protocol Last Admin: 04/02/21 08:02 Dose: 20 mg Documented by: Glucose (Glucose Gel 15 Gm Gel..Gram.) 15 gm PO Q15M PRN; Protocol PRN Reason: per Hypoglycemia Standing Ord. Insulin Human Lispro (Insulin Lispro 100 Unit/Ml 3 Ml Vial) 0 unit SUBCUT QIDACHS [facility]; Protocol Last Admin: 04/02/21 08:01 Dose: 2 unit Documented by: Omeprazole (Omeprazole 20 Mg Capsule.) 20 mg PO DAILY@0630 [facility] Last Admin: 04/02/21 06:26 Dose: 20 mg Documented by: Ondansetron HCl (Ondansetron Hcl 4 Mg/2 Ml Vial) 4 mg IVPUSH Q4H PRN PRN Reason: GI Upset Last Admin: 03/28/21 07:49 Dose: 4 mg Documented by: Ondansetron HCl (Ondansetron Hcl 4 Mg/2 Ml Vial) 4 mg IVPUSH ONCE PRN PRN Reason: Nausea and Vomiting Last Admin: 03/28/21 22:59 Dose: 4 mg Documented by: Pharmacy Consult (Consult Rx Perform Med Rec) 1 each MISCELLANE ONCE PRN PRN Reason: Consult order Polyethylene Glycol (Polyethylene Glycol 3350 17 Gm Powd.Pack) 17 gm PO DAILY [facility] Last Admin: 04/02/21 08:13 Dose: Not Given Documented by: Pramoxine HCl (Pramoxine Hcl 1 % Rectal Foam 15 Gm) 1 appl [place] BID [facility] Last Admin: 04/02/21 08:14 Dose: 1 appl Documented by: Sodium Chloride (0.9 % Sodium Chloride Flush 3 Ml Syringe) 3 ml IVFLUSH QSHIFT [facility] Last Admin: 04/02/21 08:01 Dose: 3 ml Documented by: Vitamin D (Cholecalciferol (Vitamin D3) 25 Mcg Tablet) 25 mcg PO DAILY [facility] Last Admin: 04/02/21 08:02 Dose: 25 mcg Documented by: Labs CBC & Chem 7: 04/02/21 05:24 04/02/21 05:24 Labs: Laboratory Results - last 24 hr 04/01/21 04/01/21 04/02/21 16:44 20:18 05:24 MCV 99.3 H MCH 33.5 H MCHC 33.7 RDW 17.2 H Plt Count 124 L MPV 10.5 Absolute Nucleated RBC 0.000 Nucleated RBC % (auto) 0.0 Anion Gap Estim Creat Clear Calc Estimated GFR POC Glucose 184 H 143 H Random Glucose Calcium B-Natriuretic Peptide 04/02/21 04/02/21 04/02/21 05:24 05:24 07:10 MCV MCH MCHC RDW Plt Count MPV Absolute Nucleated RBC Nucleated RBC % (auto) Anion Gap 13 Estim Creat Clear Calc 22.8 Estimated GFR 23 POC Glucose 174 H Random Glucose 210 H Calcium 8.0 L B-Natriuretic Peptide 3839 H Quality Stroke Does the patient have a stroke diagnosis?: No VTE Prior VTE?: No VTE Risk Level:: Medical - moderate - high VTE Device Contraindication: N/A - Device Ordered VTE Drug Contraindication: Treatment Not Indicated
[2021-04-02 12:15] LABS: Glucose, Whole Blood 153 mg/dL (60-115)
--- NOTE | 2021-04-02 13:34 | MHC.CM.PN ---
per rounds no expected dc date at this time pt remains in heart failure and low sodium
[2021-04-02 13:36] LABS: Glucose, Whole Blood 157 mg/dL (60-115)
[2021-04-02 16:16] LABS: Glucose, Whole Blood 240 mg/dL (60-115)
[2021-04-02 20:06] LABS: Glucose, Whole Blood 196 mg/dL (60-115)
[2021-04-02] MEDS: Benzonatate 100 MG CAPSULE PO (20:37)
[2021-04-02] MEDS: ondansetron HCL 4 MG/2 ML VIAL IVPUSH (22:02)
[2021-04-03] VITALS (7 sets, daily range): BP systolic 113–122; BP diastolic 56–62; PULSE 18–85; RESP 18–20; TEMP 36.5–37.2; O2SAT 94–97
[2021-04-03] MEDS: Omeprazole 20 MG CAPSULE.DR PO (06:22)
[2021-04-03] MEDS: Benzonatate 100 MG CAPSULE PO ×2 (06:22→14:59)
[2021-04-03 06:23] LABS: Hematocrit 27.8 % (42-52); Hemoglobin 9.5 g/dl (14.0-18.0); Mean Corpuscular HGB Conc 34.2 g/dl (31.0-36.0); Mean Corpuscular Hemoglobin 34.1 pg (27.0-33.0); Mean Corpuscular Volume 99.6 fL (80-98); Mean Platelet Volume 10.4 fL (9.4-12.4); Platelet Count 110 X10*3/uL (160-400); Red Blood Count 2.79 X10*6/uL (4.60-5.80); Red Cell Distribution Width 17.1 % (11.0-16.0); White Blood Count 6.2 X10*3/uL (4.8-10.8)
[2021-04-03 06:32] LABS: Anion Gap 13 (12-20); Blood Urea Nitrogen 49 mg/dL (9-16); Calcium 7.9 mg/dL (8.4-10.2); Carbon Dioxide 20 mmol/L (22-29); Chloride 100 mmol/L (96-108); Creatinine Clr Calc Pharmacy 25.3; Estimated Glomerular Filt Rate 26; Glucose Random 140 mg/dL (60-115); Potassium 4.2 mmol/L (3.3-5.1); Sodium 129 mmol/L (135-145)
[2021-04-03 06:36] LABS: B Type Natriuretic Peptide 3389 pg/mL (<100)
[2021-04-03 07:38] LABS: Glucose, Whole Blood 126 mg/dL (60-115)
--- NOTE | 2021-04-03 08:30 | CA_ITS ---
Transthoracic Echocardiogram Patient (Last, First, Middle): Florencio Rosales T Gender: Male Date of : 1940 Age: 81 Procedure Date: 04/03/2021 Procedure Type: Transthoracic Echocardiogram [place] [facility] [place]: 170.18 cm Weight: 81.65 kg BSA: 1.93 m2 Heart Rate: bpm BP: 115 / 58 mmHg Commercial Producer: ISAI Referring MD: Irasema Moya NP Lab Clerk: Kyler Horn MD Symptoms: chf Study Quality: Fair ECG Rhythm: Sinus Conclusions: - 1. Normal LV systolic function with pseudonormal filling pattern 2. Severely dilated left atrium 3. Mild aortic and mitral regurgitation 4. Moderate aortic stenosis 5. Mildly elevated right ventricular systolic pressure 6. No gross pericardial effusion Findings Left Ventricle Normal left ventricular size and systolic function. There is mildly increased left ventricular wall thickness. The visually estimated ejection fraction is between 55-60%. Spectral Doppler is indicative of a pseudonormal filling pattern. E/E prime ratio is >15, consistent with elevated filling pressures. Evidence suggests grade II (moderate) diastolic dysfunction. Right Ventricle Normal right ventricular cavity size and systolic function. There is a pacemaker wire seen in the right ventricle. Atria The left atrium is severely dilated. Interatrial shunt cannot be excluded. The right atrium is mildly dilated. A pacemaker wire is identified in the right atrium. Aortic Valve There is moderate calcification of the aortic valve. There is moderate thickening of the aortic valve. There is moderate aortic valve stenosis. The peak aortic gradient is 31 mmHg.The mean gradient is 15 mmHg. The aortic valve area is 1.30 cm2. There is mild aortic valve regurgitation. Mitral Valve There is mild anterior and posterior mitral leaflet thickening. There is mild mitral annular calcification. There is mild mitral valve regurgitation. There is no mitral valve stenosis. Pulmonic Valve The pulmonic valve is likely normal. There is trace to mild pulmonic valve regurgitation. Tricuspid Valve There is mild tricuspid valve regurgitation. The right ventricular systolic pressure is 41 mmHg. Mildly elevated right atrial pressure. Mild pulmonary hypertension is present. Great Vessels All visible segments of the aorta are normal in size. The pulmonary artery was not well visualized. Venous The inferior vena cava is normal in size and collapses greater than 50% with inspiration. Pericardium/Pleural There is no evidence of pericardial effusion. Measurements 2D Linear Measurements IVSd: 1.30 0.6-0.9/0.6-1.0 cm LVIDd: 5.18 3.9-5.3/4.2-5.9 cm LVIDd Index: 2.68 2.4-3.2/2.2-3.1 cm/m2 LVIDs: 3.52 2.0-3.6 cm LVPWd: 1.32 0.7-1.1 cm Ao Root: 3.70 2.1-3.5 cm LA Diam: 5.10 2.7-3.8/3.0-4.0 cm LAIDs Index: 2.64 1.5-2.3 cm/m2 LV Mass: 348.98 67-162/88-224 g LV Mass Index: 180.82 43-95/49-115 g/m2 LVOT Diam: 2.00 3.0+(-)1.3 cm 2D Systolic Function EF 4C: 56.90 >55% EF 2C: 58.90 >55% EF BiP: 56.00 >55% Mitral Valve MV VTI: 0.47 MV Pk Niko: 1.72 MV Mn Niko: 0.83 MV Pk Grad: 12.00 MV Mn Grad: 4.00 MV Pk E: 1.05 MV PK A: 0.72 MV Decel Time: 181.00 E/A: 1.50 E'Lateral: 11.70 E'Medial: 4.68 E/E' Med: 22.40 E/E' Lat: 9.00 PHT: 53.00 MVA PHT: 4.15 MVA Continuity: 1.60 Decel [place]: 5.82 Aortic Valve AoV Pk Niko: 2.77 AoV Mn Niko: 1.76 AoV VTI: 0.58 AoV Pk Grad: 31.00 Aov Mn Grad: 15.00 SHANNAN Cont.VTI: 1.30 AI Pk Niko: 3.61 AI [place]: 3.17 LVOT LVOT Pk Niko: 1.02 LVOT Mn Niko: 0.68 LVOT VTI: 0.24 LVOT Pk Grad: 4.00 LVOT Mn Grad: 2.00 LVOT Diam: 2.00 LVOT Area: 3.14 Diastolic Function MV Pk E: 1.05 MV Pk A: 0.72 E/A: 1.50 E'Medial: 4.68 E/E' Med: 22.40 E' Laterial: 11.70 E/E' Lat: 9.00 Tricuspid Valve TR Pk Niko: 2.87 TR Pk Grad: 33.00 RA Press: 8.00 RVSP: 41.00 Great Vessels Aorta Ao Root-2D: 3.70 2.0-3.7 cm Ao Asc: 3.80 2.1-3.4 cm Pulmonary Valve PV Pk Niko: 0.83 Peak PV Grad: 3.00 Updated in Other Vendor System with Status of Final Kyler Horn MD electronically signed on 04/03/2021 4:05:48 PM with status of Final
--- NOTE | 2021-04-03 08:43 | PM.PNNEP ---
Subjective Subjective Date of Service: 04/03/21 Interval history: Events noted Lying flat and comfortable Physical Exam Vital Signs: Vital Signs: Last Vital Signs Temp 98.3 F 04/03/21 08:00 Pulse 76 04/03/21 08:00 Resp 20 04/03/21 08:00 BP 113/56 L 04/03/21 08:00 Pulse Ox 95 04/03/21 08:00 Body Mass Index 28.3 Const: General: comfortable Neck: Neck: Yes supple and Yes no JVD Cardio: Jugular venous distension: no JVD Palpation: no palpable S3 Heart sounds: no rubs GI: Inspection: Yes normal to inspection Palpation (GI): Soft to palpation Auscultation: normal bowel sounds Neuro: Motor exam (neuro): No Asterixis during motor activity present Objective Data Labs CBC & Chem 7: 04/03/21 05:40 04/03/21 05:40 Labs: Laboratory Results - last 24 hr 04/02/21 04/02/21 04/02/21 10:55 12:12 16:10 WBC RBC Hgb Hct MCV MCH MCHC RDW Plt Count MPV Absolute Nucleated RBC Nucleated RBC % (auto) Sodium Potassium Chloride Carbon Dioxide Anion Gap BUN Creatinine Estim Creat Clear Calc Estimated GFR POC Glucose 157 H 153 H 240 H Random Glucose Calcium B-Natriuretic Peptide 04/02/21 04/03/21 04/03/21 20:03 05:40 05:40 WBC 6.2 RBC 2.79 L Hgb 9.5 L Hct 27.8 L MCV 99.6 H MCH 34.1 H MCHC 34.2 RDW 17.1 H Plt Count 110 L MPV 10.4 Absolute Nucleated RBC 0.000 Nucleated RBC % (auto) 0.0 Sodium 129 L Potassium 4.2 Chloride 100 Carbon Dioxide 20 L Anion Gap 13 BUN 49 H Creatinine 2.42 H Estim Creat Clear Calc 25.3 Estimated GFR 26 POC Glucose 196 H Random Glucose 140 H Calcium 7.9 L B-Natriuretic Peptide 04/03/21 04/03/21 05:40 07:25 WBC RBC Hgb Hct MCV MCH MCHC RDW Plt Count MPV Absolute Nucleated RBC Nucleated RBC % (auto) Sodium Potassium Chloride Carbon Dioxide Anion Gap BUN Creatinine Estim Creat Clear Calc Estimated GFR POC Glucose 126 H Random Glucose Calcium B-Natriuretic Peptide 3389 H Procedures Date of Service Date of Service: 04/03/21 Assessment & Plan Assessment and plan (1) Hyponatremia: Status: Acute Assessment and Plan: Hypervolemic hyponatremia Keep Lasix and O > I Restrict PO Water intake (2) Chronic kidney disease (CKD) stage G4/A1, severely decreased glomerular filtration rate (GFR) between 15-29 mL/min/1.73 square meter and albuminuria creatinine ratio less than 30 mg/g: Status: Acute Assessment and Plan: Renal function is marginally better No indication for dialysis Time Spent With Patient Time: Total time spent is greater than 50% in coordination of care (as documented) at patient's floor/unit and/or counseling patient: Progress Note: Quality Stroke Does the patient have a stroke diagnosis?: No
[2021-04-03] MEDS: Furosemide 20 MG/2 ML VIAL IVPUSH (10:09)
[2021-04-03] MEDS: Cholecalciferol (Vitamin D3) 25 MCG TABLET PO (10:09)
[2021-04-03] MEDS: 0.9 % Sodium Chloride Flush 3 ML SYRINGE IVFLUSH ×3 (10:09→23:50)
[2021-04-03] MEDS: polyethylene glycoL 3350 17 GM POWD.PACK PO (10:09)
[2021-04-03] MEDS: Pramoxine HCl 1 % Rectal Foam 15 GM 1 APPL PR ×2 (10:10→21:01)
--- NOTE | 2021-04-03 11:20 | CONS_ITS ---
DATE OF SERVICE: 04/02/2021 REASON FOR CONSULTATION: I was called to see this patient to assist in the management of acute kidney injury. HISTORY OF PRESENT ILLNESS: To summarize, Florencio is a 81-year-old man who is known to my associate and he is being actively followed for chronic kidney disease. He has a history of atrial fibrillation, diabetes mellitus, hypertension, chronic kidney disease and a history of bilateral renal artery stenosis status post intervention, actually participant in the CORAL trial. He had stenting of the renal arteries. He comes in because of GI bleed and is currently being managed for the same in the meantime. During this admission, he developed acute kidney injury. His serum creatinine was 3.37 in February and at present it is 2.69. He also developed hyponatremia with a serum sodium of 127 and at the time of admission, sodium was 137 mmol. He did receive some IV fluids. At present, he has fluid overload, IV fluids have been discontinued and this consultation is requested. PAST MEDICAL HISTORY: Ongoing medical problems include history of chronic kidney disease stage 4, renal artery stenosis status post stent placement, hypertension, atrial fibrillation, status post pacemaker placement, diabetes mellitus, stroke. PAST SURGICAL HISTORY: Include prostatectomy, tonsillectomy, and bilateral renal artery stenosis with stent placement. FAMILY HISTORY: Noncontributory to this admission. MEDICATIONS: No other home medications reviewed. Current medications were reviewed as well. REVIEW OF SYSTEMS: Revealed leg edema. No Shortness of breath, no chest pain, nausea, vomiting. No abdominal pain. All other systems were reviewed. PHYSICAL EXAMINATION: GENERAL: Florencio is a 81-year-old man who is lying flat, comfortable, not in any distress. NECK: Supple. LUNGS: Few basilar crackles. HEART: S1, S2 irregular, no gallop. ABDOMEN: Soft, nontender. EXTREMITIES: With 1+ edema bilaterally. No rash. No clubbing. VITAL SIGNS: Blood pressure today was 105/53, pulse 82, temperature 98.6. All the current medications are reviewed. LABORATORY DATA: Sodium 127, potassium 4.4, BUN 51, creatinine 2.69. Hemoglobin 9.2 and platelets 124,000. IMPRESSION: A 81-year-old man with acute kidney injury superimposed on chronic kidney disease with hyponatremia. Florencio has stage 4 chronic kidney disease, renal function close to baseline at this point. Hyponatremia due to excessive free water. I would check the urine for sodium, creatinine osmolality and serum osmolality. RECOMMENCATIONS: My recommendation would be to obtain the above lab work and keep on oral free water restriction of 1 L per 24 hours. I would keep on the loop diuretics, Lasix to increase a free water clearance and to keep him on a slight negative fluid balance, continue to avoid hypotension. We will follow him closely along with the team. Jorje Anne MD BPA/MODL / [phone]
--- NOTE | 2021-04-03 11:26 | PM.IMPN ---
Progress Note: A&P (1) Hyponatremia: Status: Acute (2) Acute congestive heart failure: Status: Acute (3) Anemia: Status: Acute Assessment and Plan: 81-year-old man admitted with GI bleed. Acute congestive heart failure.? Likely from IV fluids Still needs more diuresis, cardio rec lasix 5mg/hr continuous Follow intake and output closely Daily weights echo cardio to follow Hyponatremia.? May be secondary to heart failure.? Continue diuresis and follow BMP closely Nephrology consult GI bleed.? H/H better today s/p endoscopy and colonoscopy 03/29 results below Endoscopy findings showed mild GAVE, varices, candidiasis Colonoscopy findings showed actively bleeding radiation proctitis, there was persistent oozing of blood from the ectatic lesion in the rectum, rectal bleeding was treated with hemo spray -proctofoam BID x 4 weeks -follow up biopsy results to determine need for treatment for candidiasis If H&H continues to trend down despite transfusion, GI recommends re-prep on Friday night for repeat colonoscopy on Friday Anemia.? Secondary to GI bleed. Stable HH Has received 5 units of packed red blood cells since admission Follow CBC and transfuse as necessary Transaminitis.? Has been elevated for several months. Abdominal MRI in February showed hepatic cyst similar to previous although the liver is normal in size, smooth and no evidence of hepatic steatosis. May be r/t amiodorone use - cardiology recommends to continue to hold amio Consider heme evaluation as outpatient CKD4 Creatinine within baseline Follow BMP Atrial fibrillation.? Controlled Hold Eliquis, discussed with GI when to continue Hold metoprolol due to soft BP Amiodorone on hold since admission Diabetes mellitus ADA diet, Sliding scale DVT prophylaxis with early ambulation, scd boots Attending Dr. Gutierrez Subjective Subjective Date of Service: 04/03/21 Review of Systems follow-up anemia, GI bleed, congestive heart failure Still was some mild shortness of breath Feels tired today Denies chest pain, abdominal pain, nausea, vomiting, fever Physical Exam Vital Signs: Vital Signs: Last Vital Signs Temp 98.3 F 04/03/21 08:00 Pulse 76 04/03/21 10:00 Resp 20 04/03/21 08:00 BP 113/56 L 04/03/21 10:00 Pulse Ox 95 04/03/21 10:00 Body Mass Index 28.3 Appearing in no acute distress lung sounds rales heart regular rate rhythm, clear S1, S2 positive bowel sounds, abdomen is soft, nontender neuro patient is alert x3, no focal deficits Objective Data Current Medications Acetaminophen (Acetaminophen 325 Mg Tablet) 650 mg PO Q6H PRN PRN Reason: Pain, Mild (Pain Scale 1-3) Benzonatate (Benzonatate 100 Mg Capsule) 100 mg PO TID PRN PRN Reason: Cough Last Admin: 04/03/21 06:22 Dose: 100 mg Documented by: Dextrose (Dextrose 50 % 25 Gm/50 Ml Vial) 25 gm IVPUSH Q15M PRN; Protocol PRN Reason: per Hypoglycemia Standing Ord. Furosemide (Furosemide 20 Mg/2 Ml Vial) 20 mg IVPUSH BID@0900,1800 [facility]; Protocol Last Admin: 04/03/21 10:09 Dose: 20 mg Documented by: Glucose (Glucose Gel 15 Gm Gel..Gram.) 15 gm PO Q15M PRN; Protocol PRN Reason: per Hypoglycemia Standing Ord. Insulin Human Lispro (Insulin Lispro 100 Unit/Ml 3 Ml Vial) 0 unit SUBCUT QIDACHS [facility]; Protocol Last Admin: 04/03/21 07:43 Dose: Not Given Documented by: Omeprazole (Omeprazole 20 Mg Capsule.) 20 mg PO DAILY@0630 [facility] Last Admin: 04/03/21 06:22 Dose: 20 mg Documented by: Ondansetron HCl (Ondansetron Hcl 4 Mg/2 Ml Vial) 4 mg IVPUSH Q4H PRN PRN Reason: GI Upset Last Admin: 04/02/21 22:02 Dose: 4 mg Documented by: Ondansetron HCl (Ondansetron Hcl 4 Mg/2 Ml Vial) 4 mg IVPUSH ONCE PRN PRN Reason: Nausea and Vomiting Last Admin: 03/28/21 22:59 Dose: 4 mg Documented by: Pharmacy Consult (Consult Rx Perform Med Rec) 1 each MISCELLANE ONCE PRN PRN Reason: Consult order Polyethylene Glycol (Polyethylene Glycol 3350 17 Gm Powd.Pack) 17 gm PO DAILY [facility] Last Admin: 04/03/21 10:09 Dose: 17 gm Documented by: Pramoxine HCl (Pramoxine Hcl 1 % Rectal Foam 15 Gm) 1 appl [place] BID [facility] Last Admin: 04/03/21 10:10 Dose: 1 appl Documented by: Sodium Chloride (0.9 % Sodium Chloride Flush 3 Ml Syringe) 3 ml IVFLUSH QSHIFT [facility] Last Admin: 04/03/21 10:09 Dose: 3 ml Documented by: Vitamin D (Cholecalciferol (Vitamin D3) 25 Mcg Tablet) 25 mcg PO DAILY [facility] Last Admin: 04/03/21 10:09 Dose: 25 mcg Documented by: Labs CBC & Chem 7: 04/03/21 05:40 04/03/21 05:40 Labs: Laboratory Results - last 24 hr 04/02/21 04/02/21 04/02/21 10:55 12:12 16:10 MCV MCH MCHC RDW Plt Count MPV Absolute Nucleated RBC Nucleated RBC % (auto) Anion Gap Estim Creat Clear Calc Estimated GFR POC Glucose 157 H 153 H 240 H Random Glucose Calcium B-Natriuretic Peptide 04/02/21 04/03/21 04/03/21 20:03 05:40 05:40 MCV 99.6 H MCH 34.1 H MCHC 34.2 RDW 17.1 H Plt Count 110 L MPV 10.4 Absolute Nucleated RBC 0.000 Nucleated RBC % (auto) 0.0 Anion Gap 13 Estim Creat Clear Calc 25.3 Estimated GFR 26 POC Glucose 196 H Random Glucose 140 H Calcium 7.9 L B-Natriuretic Peptide 04/03/21 04/03/21 05:40 07:25 MCV MCH MCHC RDW Plt Count MPV Absolute Nucleated RBC Nucleated RBC % (auto) Anion Gap Estim Creat Clear Calc Estimated GFR POC Glucose 126 H Random Glucose Calcium B-Natriuretic Peptide 3389 H Quality Stroke Does the patient have a stroke diagnosis?: No VTE Prior VTE?: No VTE Risk Level:: Medical - moderate - high VTE Device Contraindication: N/A - Device Ordered VTE Drug Contraindication: Treatment Not Indicated
[2021-04-03 11:41] LABS: Glucose, Whole Blood 153 mg/dL (60-115)
--- NOTE | 2021-04-03 11:41 | PM.PNCARD ---
Subjective Subjective Date of Service: 04/03/21 <ELE Gil - Last Filed: 04/03/21 12:49> 04/03/21 <Kyler Horn MD - Last Filed: 04/03/21 14:20> Principal diagnosis: CHF, PAF, GIB, anemia <ELE Gil - Last Filed: 04/03/21 12:49> Interval history: Cardiology follow up for CHF. Seen at 1030. Today he reports that he has sob with movement. His breathing is comfortable at rest. No chest pains, palpitations, dizziness. Denies abdominal discomfort. Has bilateral leg edema. Denies known active bleeding at present. Tells me he has never had hx of CHF. Has hx of prior coronary angioplasty, pacemaker and newer diagnosis of atrial fibrillation. <ELE Gil - Last Filed: 04/03/21 12:49> Review of Systems Review of Systems as above <ELE Gil - Last Filed: 04/03/21 12:49> Yes all other systems are reviewed and are negative <ELE Gil - Last Filed: 04/03/21 12:49> Physical Exam Vital Signs: Last Vital Signs Temp 98.3 F 04/03/21 08:00 Pulse 76 04/03/21 10:00 Resp 20 04/03/21 08:00 BP 113/56 L 04/03/21 10:00 Pulse Ox 95 04/03/21 10:00 Body Mass Index 28.3 <ELE Gil - Last Filed: 04/03/21 12:49> Const General: cooperative, no acute distress, alert and awake <ELE Gil - Last Filed: 04/03/21 12:49> Orientation/consciousness: patient oriented x3 <ELE Gil - Last Filed: 04/03/21 12:49> Neck Neck: Yes JVD <ELE Gil - Last Filed: 04/03/21 12:49> Resp Effort & Inspection: normal respiratory effort and able to speak in complete sentences <ELE Gil - Last Filed: 04/03/21 12:49> Auscultation: rales (lower lobes bilaterally), no rhonchi and no wheezes <Daniellechadd Echevarria [facility] - Last Filed: 04/03/21 12:49> Cardio Jugular venous distension: JVD present and JVD <Danielle Swathi [facility] - Last Filed: 04/03/21 12:49> Palpation: normal PMI <Danielle Swathi [facility] - Last Filed: 04/03/21 12:49> Rate: regular rate <[facility] Swathi [facility] Last Filed: 04/03/21 12:49> Rhythm: regular rhythm <[facility] Swathi [facility] - Last Filed: 04/03/21 12:49> Heart sounds: S1 normal heart sound present and S2 normal heart sound present <[facility] Swathi [facility] - Last Filed: 04/03/21 12:49> Peripheral pulses: Peripheral pulses 2+ throughout <[facility] Swathi [facility] Last Filed: 04/03/21 12:49> GI Inspection: Yes normal to inspection <[facility] Swathi [facility] - Last Filed: 04/03/21 12:49> Skin Other: jaundice <[facility] Swathi [facility] Last Filed: 04/03/21 12:49> Neuro General: patient oriented x3 <Danielle Swathi [facility] Last Filed: 04/03/21 12:49> Extrem Other: Pitting edema to legs bilaterally to level above knee, posterior thigh <Danielle Swathi [facility] - Last Filed: 04/03/21 12:49> Results Labs and Meds Result diagrams: : 04/03/21 05:40 04/03/21 05:40 <Danielle Swathi [facility] - Last Filed: 04/03/21 12:49> Lab results: Laboratory Results - last 24 hr 04/02/21 04/02/21 04/02/21 10:55 12:12 16:10 WBC RBC Hgb Hct MCV MCH MCHC RDW Plt Count MPV Absolute Nucleated RBC Nucleated RBC % (auto) Sodium Potassium Chloride Carbon Dioxide Anion Gap BUN Creatinine Estim Creat Clear Calc Estimated GFR POC Glucose 157 H 153 H 240 H Random Glucose Calcium B-Natriuretic Peptide 04/02/21 04/03/21 04/03/21 20:03 05:40 05:40 WBC 6.2 RBC 2.79 L Hgb 9.5 L Hct 27.8 L MCV 99.6 H MCH 34.1 H MCHC 34.2 RDW 17.1 H Plt Count 110 L MPV 10.4 Absolute Nucleated RBC 0.000 Nucleated RBC % (auto) 0.0 Sodium 129 L Potassium 4.2 Chloride 100 Carbon Dioxide 20 L Anion Gap 13 BUN 49 H Creatinine 2.42 H Estim Creat Clear Calc 25.3 Estimated GFR 26 POC Glucose 196 H Random Glucose 140 H Calcium 7.9 L B-Natriuretic Peptide 04/03/21 04/03/21 04/03/21 05:40 07:25 11:34 WBC RBC Hgb Hct MCV MCH MCHC RDW Plt Count MPV Absolute Nucleated RBC Nucleated RBC % (auto) Sodium Potassium Chloride Carbon Dioxide Anion Gap BUN Creatinine Estim Creat Clear Calc Estimated GFR POC Glucose 126 H 153 H Random Glucose Calcium B-Natriuretic Peptide 3389 H <ELE Gil - Last Filed: 04/03/21 12:49> Progress Note: A&P Assessment and plan (1) Acute congestive heart failure: Status: Acute <ELE Gil - Last Filed: 04/03/21 12:49> Assessment and Plan: Admit with GIB, anemia. During this admit he has developed fluid overload, acute CHF. Notes indicate he has received 5 units of packed cells. BNP had gone from 500s on admit, up to 4448. He denies any known hx of CHF or CMP in past. He does take torsemide at home. He is currently being diuresed with low dose IV lasix and fluid balance remains positive. He has shorntess of breath with movement. + JVD, rales and edema on exam. Will change Lasix to a drip at 5mg / hr. Ongoing strict I+O monitoring. Close monitoring of electrolyte and kidney function. Electrolyte replacement as warranted. Echo is pending. We will follow. <ANASTASIYA GilC - Last Filed: 04/03/21 12:49> Admit with GIB, anemia. During this admit he has developed fluid overload, acute CHF. Notes indicate he has received 5 units of packed cells. BNP had gone from 500s on admit, up to 4448. He denies any known hx of CHF or CMP in past. He does take torsemide at home. He is currently being diuresed with low dose IV lasix and fluid balance remains positive. He has shorntess of breath with movement. + JVD, rales and edema on exam. Will change Lasix to a drip at 5mg / hr. Ongoing strict I+O monitoring. Close monitoring of electrolyte and kidney function. Electrolyte replacement as warranted. Echo is pending. We will follow. Patient seen and examined. Case discussed with Danielle Echevarria. Patient developed fluid overload related to aggressive hydration as well as blood transfusions. Clinically in heart failure with significantly elevated BNP. Start on Lasix drip 5 mg an hour. Strict intake and output chart. Blood pressure is optimized. Echocardiogram to assess LV systolic and diastolic function. Continue monitor hematocrit. <Kyler Horn MD - Last Filed: 04/03/21 14:20> (2) Hyponatremia: Status: Acute <ELE Gil - Last Filed: 04/03/21 12:49> Assessment and Plan: Nephrology has evaluated. We are starting Lasix drip <ELE Gil - Last Filed: 04/03/21 12:49> (3) Atrial fibrillation: Status: Acute <ELE Gil - Last Filed: 04/03/21 12:49> Assessment and Plan: Hx of PAF. Had been on Amiodarone and Metoprolol. Amiodarone stopped due to elevated LFTs. He levels have improved some since admit. He has elevated Bilirubin and has jaundice on exam today. GI is already following for his GIB. of note, abominal MRI from 02/12/21 shows Sludge in the dependent gallbladder with possible fine gravel-like calculi. No gallbladder wall thickening or ductal dilatation . LFT elevation seems less likely to be related to Amiodarone. Since his levels are still abnormal - will continue to hold Amiodarone at this time. He is off his Metoprolol at present, unclear why, could be related to BPs on the low side. Continue to hold at present. He is off Eliquis due to GIB. 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 Can plan to restart Eliquis only if clear by GI to do so. May need to consider Watchman device in future if he is unable to tolerate anticoagulation. Tele has been showing only SR, controlled rates. Ongoing tele monitoring. <ELE Gil - Last Filed: 04/03/21 12:49> Hx of PAF. Had been on Amiodarone and Metoprolol. Amiodarone stopped due to elevated LFTs. He levels have improved some since admit. He has elevated Bilirubin and has jaundice on exam today. GI is already following for his GIB. of note, abominal MRI from 02/12/21 shows Sludge in the dependent gallbladder with possible fine gravel-like calculi. No gallbladder wall thickening or ductal dilatation . LFT elevation seems less likely to be related to Amiodarone. Since his levels are still abnormal - will continue to hold Amiodarone at this time. He is off his Metoprolol at present, unclear why, could be related to BPs on the low side. Continue to hold at present. He is off Eliquis due to GIB. 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 Can plan to restart Eliquis only if clear by GI to do so. May need to consider Watchman device in future if he is unable to tolerate anticoagulation. Tele has been showing only SR, controlled rates. Ongoing tele monitoring. Paroxysmal atrial fibrillation. Currently suppressed. Off amiodarone therapy due to elevated liver enzymes. Continue to hold off on the same. Echo cardiograms above. Significant GI bleed related to radiation proctitis. Avoid oral anticoagulant therapy. Will need to discuss alternative therapy such as Watchman device as outpatient. Will follow the patient. <Kyler Horn MD - Last Filed: 04/03/21 14:20> (4) Elevated liver enzymes: Status: Acute <ELE Gil - Last Filed: 04/03/21 12:49> Fall Risk Details Current Medications: Current Medications Acetaminophen (Acetaminophen 325 Mg Tablet) 650 mg PO Q6H PRN PRN Reason: Pain, Mild (Pain Scale 1-3) Benzonatate (Benzonatate 100 Mg Capsule) 100 mg PO TID PRN PRN Reason: Cough Last Admin: 04/03/21 06:22 Dose: 100 mg Documented by: Dextrose (Dextrose 50 % 25 Gm/50 Ml Vial) 25 gm IVPUSH Q15M PRN; Protocol PRN Reason: per Hypoglycemia Standing Ord. Furosemide (Furosemide 20 Mg/2 Ml Vial) 20 mg IVPUSH BID@0900,1800 [facility]; Protocol Last Admin: 04/03/21 10:09 Dose: 20 mg Documented by: Glucose (Glucose Gel 15 Gm Gel..Gram.) 15 gm PO Q15M PRN; Protocol PRN Reason: per Hypoglycemia Standing Ord. Insulin Human Lispro (Insulin Lispro 100 Unit/Ml 3 Ml Vial) 0 unit SUBCUT QIDACHS [facility]; Protocol Last Admin: 04/03/21 07:43 Dose: Not Given Documented by: Omeprazole (Omeprazole 20 Mg Capsule.Dr) 20 mg PO DAILY@0630 [facility] Last Admin: 04/03/21 06:22 Dose: 20 mg Documented by: Ondansetron HCl (Ondansetron Hcl 4 Mg/2 Ml Vial) 4 mg IVPUSH Q4H PRN PRN Reason: GI Upset Last Admin: 04/02/21 22:02 Dose: 4 mg Documented by: Ondansetron HCl (Ondansetron Hcl 4 Mg/2 Ml Vial) 4 mg IVPUSH ONCE PRN PRN Reason: Nausea and Vomiting Last Admin: 03/28/21 22:59 Dose: 4 mg Documented by: Pharmacy Consult (Consult Rx Perform Med Rec) 1 each MISCELLANE ONCE PRN PRN Reason: Consult order Polyethylene Glycol (Polyethylene Glycol 3350 17 Gm Powd.Pack) 17 gm PO DAILY [facility] Last Admin: 04/03/21 10:09 Dose: 17 gm Documented by: Pramoxine HCl (Pramoxine Hcl 1 % Rectal Foam 15 Gm) 1 appl [place] BID [facility] Last Admin: 04/03/21 10:10 Dose: 1 appl Documented by: Sodium Chloride (0.9 % Sodium Chloride Flush 3 Ml Syringe) 3 ml IVFLUSH QSHIFT [facility] Last Admin: 04/03/21 10:09 Dose: 3 ml Documented by: Vitamin D (Cholecalciferol (Vitamin D3) 25 Mcg Tablet) 25 mcg PO DAILY [facility] Last Admin: 04/03/21 10:09 Dose: 25 mcg Documented by: <ELE Gil - Last Filed: 04/03/21 12:49> Time Spent With Patient Time: Total time spent is greater than 50% in coordination of care (as documented) at patient's floor/unit and/or counseling patient: <ELE Gil - Last Filed: 04/03/21 12:49> Time with patient: 15 - 24 minutes <ELE Gil - Last Filed: 04/03/21 12:49> Progress Note: Quality Stroke Does the patient have a stroke diagnosis?: No <ELE Gil - Last Filed: 04/03/21 12:49> Procedures Date of Service Date of Service: 04/03/21 <ELE Gil - Last Filed: 04/03/21 12:49>
[2021-04-03] MEDS: Insulin Lispro 100 UNIT/ML 3 ML VIAL SUBCUT ×3 (12:53→20:58)
[2021-04-03] MEDS: Furosemide 200 MG in 0.9 % Sodium Chloride 80 ML IVCONT (14:59)
[2021-04-03 16:35] LABS: Glucose, Whole Blood 164 mg/dL (60-115)
[2021-04-03 20:50] LABS: Glucose, Whole Blood 189 mg/dL (60-115)
[2021-04-04] VITALS (7 sets, daily range): BP systolic 107–116; BP diastolic 51–57; PULSE 73–81; RESP 18–20; TEMP 36.4–36.9; O2SAT 93–97
--- NOTE | 2021-04-04 | ECG_ITS ---
Test Reason : QTC CHECK Blood Pressure : / mmHG Vent. Rate : 078 BPM Atrial Rate : 078 BPM P-R Int : 232 ms QRS Dur : 112 ms QT Int : 456 ms P-R-T Axes : 067 -12 158 degrees QTc Int : 519 ms Sinus rhythm with 1st degree A-V block Left ventricular hypertrophy with repolarization abnormality Abnormal ECG When compared with ECG of 26-MAR-2021 14:44, QT has shortened Referred By: Danielle Echevarria Electronically Signed By:SOCORRO JACKSON
[2021-04-04] MEDS: Omeprazole 20 MG CAPSULE.DR PO (06:07)
[2021-04-04 07:29] LABS: Glucose, Whole Blood 136 mg/dL (60-115)
--- NOTE | 2021-04-04 10:06 | P.PNIM_ITS ---
Subjective Subjective Date of Service: 04/04/21 Interval History: seen and examined this AM just waking up no issues reported by nurse staff community health Review of Systems denies cp, sob reports breathing improved denies any gi bleeding Review of Systems: Yes all other systems are reviewed and are negative Physical Exam Vital Signs: Vital Signs: Last Vital Signs Temp 98.4 F 04/04/21 07:45 Pulse 73 04/04/21 07:45 Resp 20 04/04/21 07:45 BP 109/53 L 04/04/21 07:45 Pulse Ox 95 04/04/21 07:45 Body Mass Index 28.3 Const: Other: General - no acute distress, appears comfortable Cardiovascular - s1s2; +JVD; 2+ b/l pitting edema Lungs - trace rales Abdomen - soft, nontender, no rebound or guarding Extremities - no edema bilaterally Neuro - awake and alert, no focal deficits Objective Data Active Medications Acetaminophen (Acetaminophen 325 Mg Tablet) 650 mg PO Q6H PRN PRN Reason: Pain, Mild (Pain Scale 1-3) Benzonatate (Benzonatate 100 Mg Capsule) 100 mg PO TID PRN PRN Reason: Cough Last Admin: 04/03/21 14:59 Dose: 100 mg Documented by: SUZY Dextrose (Dextrose 50 % 25 Gm/50 Ml Vial) 25 gm IVPUSH Q15M PRN; Protocol PRN Reason: per Hypoglycemia Standing Ord. Glucose (Glucose Gel 15 Gm Gel..Gram.) 15 gm PO Q15M PRN; Protocol PRN Reason: per Hypoglycemia Standing Ord. Furosemide 200 mg/ Sodium (Chloride) 100 mls @ 2.5 mls/hr IVCONT .Q24H [facility] [place] Last Admin: 04/03/21 14:59 Dose: 5 mg/hr, 2.5 mls/hr Documented by: SUZY Insulin Human Lispro (Insulin Lispro 100 Unit/Ml 3 Ml Vial) 0 unit SUBCUT QIDACHS [facility] [place]; Protocol Last Admin: 04/04/21 07:56 Dose: Not Given Documented by: CHANDRIKA Non-Admin Reason: No Insulin Coverage Omeprazole (Omeprazole 20 Mg Alex.) 20 mg PO DAILY@0630 [facility] [place] Last Admin: 04/04/21 06:07 Dose: 20 mg Documented by: RADHA Ondansetron HCl (Ondansetron Hcl 4 Mg/2 Ml Vial) 4 mg IVPUSH Q4H PRN PRN Reason: GI Upset Last Admin: 04/02/21 22:02 Dose: 4 mg Documented by: KAREN Ondansetron HCl (Ondansetron Hcl 4 Mg/2 Ml Vial) 4 mg IVPUSH ONCE PRN PRN Reason: Nausea and Vomiting Last Admin: 03/28/21 22:59 Dose: 4 mg Documented by: WILL Pharmacy Consult (Consult Rx Perform Med Rec) 1 each MISCELLANE ONCE PRN PRN Reason: Consult order Polyethylene Glycol (Polyethylene Glycol 3350 17 Gm Powd.Pack) 17 gm PO DAILY [facility] [place] Last Admin: 04/03/21 10:09 Dose: 17 gm Documented by: SUZY Pramoxine HCl (Pramoxine Hcl 1 % Rectal Foam 15 Gm) 1 appl MA BID [facility] [place] Last Admin: 04/03/21 21:01 Dose: 1 appl Documented by: TUMASY Sodium Chloride (0.9 % Sodium Chloride Flush 3 Ml Syringe) 3 ml IVFLUSH QSHIFT [facility] [place] Last Admin: 04/03/21 23:50 Dose: 3 ml Documented by: RADHA Vitamin D (Cholecalciferol (Vitamin D3) 25 Mcg Tablet) 25 mcg PO DAILY [facility] [place] Last Admin: 04/03/21 10:09 Dose: 25 mcg Documented by: SUZY Labs CBC & Chem 7: 04/03/21 05:40 04/03/21 05:40 Labs: Laboratory Results - last 24 hr 04/03/21 04/03/21 04/03/21 11:34 16:13 20:37 POC Glucose 153 H 164 H 189 H 04/04/21 07:10 POC Glucose 136 H Assessment and Plan (1) Acute congestive heart failure: Status: Acute Assessment and Plan: 81 yo M who initially presented on 03/26 with complaints of lower GI bleed. His course has been complicated by multiple issues. Acute on Chronic HFpEF suspected secondary to multiple PRBCs with baseline of chronic HF + A. 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 Fib rates controlled without any rate controlling drugs -- add rate control drugs if rec. by cardiology not on OAC currently due to Gi bleed Hepatitis chronic, cause unclear follows with GI -- will need OP f/u Full Code DVT pptx, Mechanical due to GI bleed. Quality Stroke Does the patient have a stroke diagnosis?: No VTE Prior VTE?: No VTE Risk Level:: Medical - moderate - high VTE Device Contraindication: N/A - Device Ordered VTE Drug Contraindication: Treatment Not Indicated
[2021-04-04 10:20] LABS: Anion Gap 14 (12-20); Blood Urea Nitrogen 44 mg/dL (9-16); Calcium 7.7 mg/dL (8.4-10.2); Carbon Dioxide 22 mmol/L (22-29); Chloride 101 mmol/L (96-108); Creatinine Clr Calc Pharmacy 27.2; Estimated Glomerular Filt Rate 28; Glucose Random 153 mg/dL (60-115); Sodium 133 mmol/L (135-145)
--- NOTE | 2021-04-04 10:30 | PM.PNCARD ---
Subjective Subjective Date of Service: 04/04/21 <ELE Gil - Last Filed: 04/04/21 11:16> 04/04/21 <Kyler Horn MD - Last Filed: 04/04/21 11:32> Principal diagnosis: CHF, PAF, GIB, anemia <ELE Gil - Last Filed: 04/04/21 11:16> Interval history: Cardiology follow up for CHF. Seen at 0840. Today he reports breathing comfortable at rest. He has not been up yet to eval sob with activity. No chest pains, palpitations, dizziness. He is oriented but upset over hurting the babies which may have been a dream he had. Legs still have swelling. Voiding into urinal. <ELE Gil - Last Filed: 04/04/21 11:16> Review of Systems Review of Systems as above <ELE Gil - Last Filed: 04/04/21 11:16> Yes all other systems are reviewed and are negative <ELE Gil - Last Filed: 04/04/21 11:16> Physical Exam Vital Signs: Last Vital Signs Temp 98.4 F 04/04/21 07:45 Pulse 73 04/04/21 07:45 Resp 20 04/04/21 07:45 BP 109/53 L 04/04/21 07:45 Pulse Ox 95 04/04/21 07:45 Body Mass Index 28.3 <ELE Gil - Last Filed: 04/04/21 11:16> Const Other: oriented to questions, some mild confusion which could be a dream he had <ELE Gil - Last Filed: 04/04/21 11:16> General: cooperative, no acute distress, alert and awake <ELE Gil - Last Filed: 04/04/21 11:16> Orientation/consciousness: patient oriented x3 <ELE Gil - Last Filed: 04/04/21 11:16> HENMT Other: facial, mild scleral jaundice <ELE Gil - Last Filed: 04/04/21 11:16> Head: Yes normal to inspection <ANASTASIYA Gil - Last Filed: 04/04/21 11:16> Neck Neck: Yes normal visual inspection and Yes JVD <ANASTASIYA Gil - Last Filed: 04/04/21 11:16> Resp Effort & Inspection: normal respiratory effort, able to speak in complete sentences and not labored <ANASTASIYA iGl - Last Filed: 04/04/21 11:16> Auscultation: rales (each lower lobe), no rhonchi and no wheezes <Danielle Echevarria NP - Last Filed: 04/04/21 11:16> Cardio Jugular venous distension: JVD present <ANASTASIYA Gil - Last Filed: 04/04/21 11:16> Palpation: normal PMI <ANASTASIYA Gil - Last Filed: 04/04/21 11:16> Rate: regular rate <ANASTASIYA Gli - Last Filed: 04/04/21 11:16> Rhythm: regular rhythm <Danielle Echevarria NP - Last Filed: 04/04/21 11:16> Heart sounds: S1 normal heart sound present and S2 normal heart sound present <Danielle Echevarria NP- - Last Filed: 04/04/21 11:16> Peripheral pulses: Peripheral pulses 2+ throughout <ANASTASIYA Gil - Last Filed: 04/04/21 11:16> GI Inspection: Yes normal to inspection <ANASTASIYA Gil - Last Filed: 04/04/21 11:16> Skin General skin exam: no rashes or lesions noted <Danielle Echevarria NP - Last Filed: 04/04/21 11:16> Neuro General: patient oriented x3 <ANASTASIYA Gil - Last Filed: 04/04/21 11:16> Extrem Other: pitting edema to level of posterior lower thighs <Danielle Echevarria NP- - Last Filed: 04/04/21 11:16> Results Labs and Meds Result diagrams: : 04/03/21 05:40 04/04/21 09:45 <Danielle Echevarria [employer]LECTION [employer]ENT - Last Filed: 04/04/21 11:16> Lab results: Laboratory Results - last 24 hr 04/03/21 04/03/21 04/03/21 11:34 16:13 20:37 Sodium Potassium Chloride Carbon Dioxide Anion Gap BUN Creatinine Estim Creat Clear Calc Estimated GFR POC Glucose 153 H 164 H 189 H Random Glucose Calcium 04/04/21 04/04/21 07:10 09:45 Sodium 133 L Potassium 4.0 Chloride 101 Carbon Dioxide 22 Anion Gap 14 BUN 44 H Creatinine 2.25 H Estim Creat Clear Calc 27.2 Estimated GFR 28 POC Glucose 136 H Random Glucose 153 H Calcium 7.7 L <ELE Gil - Last Filed: 04/04/21 11:16> Progress Note: A&P Assessment and plan (1) Acute congestive heart failure: Status: Acute <ELE Gil - Last Filed: 04/04/21 11:16> Assessment and Plan: Admit with GIB, anemia. During this admit he has developed fluid overload, acute CHF. Notes indicate he has received 5 units of packed cells. BNP had gone from 500s on admit, up to 4448. He denies any known hx of CHF or CMP in past. He does take torsemide at home. He is currently being diuresed with IV Lasix drip at 5mg/hr. Fluid balance Neg 1 liter yesterday. Still has signs of fluid overload with JVD, rales and edema on exam. Echo yesterday shows normal EF, Mod , mild increase RVSP, grade II diastolic dysfunction. Acute diastolic HF. Continue Lasix drip. Ongoing strict I+O monitoring. Close monitoring of electrolyte and kidney function. Electrolyte replacement as warranted. Echo is pending. We will follow. <ELE Gil - Last Filed: 04/04/21 11:16> Admit with GIB, anemia. During this admit he has developed fluid overload, acute CHF. Notes indicate he has received 5 units of packed cells. BNP had gone from 500s on admit, up to 4448. He denies any known hx of CHF or CMP in past. He does take torsemide at home. He is currently being diuresed with IV Lasix drip at 5mg/hr. Fluid balance Neg 1 liter yesterday. Still has signs of fluid overload with JVD, rales and edema on exam. Echo yesterday shows normal EF, Mod , mild increase RVSP, grade II diastolic dysfunction. Acute diastolic HF. Continue Lasix drip. Ongoing strict I+O monitoring. Close monitoring of electrolyte and kidney function. Electrolyte replacement as warranted. We will follow. Patient seen and examined. Case discussed with Danielle. Patient remains in heart failure. Continue diuresis with Lasix drip. Strict intake and output chart is very important. Continue to monitor BMP. Continue monitor blood pressure which is well optimized. Low-salt diet. Does have underlying diastolic dysfunction and had received significant amount of fluid as well as packed RBCs. Continue rhythm control approach. Currently amiodarone has been withheld due to elevated LFTs. <Kyler Horn MD - Last Filed: 04/04/21 11:32> (2) Atrial fibrillation: Status: Acute <ELE Gil - Last Filed: 04/04/21 11:16> Assessment and Plan: Hx of PAF. Had been on Amiodarone and Metoprolol. Amiodarone stopped on admit due to elevated LFTs. Tele showing SR, rates 70 up to 120. Will continue to hold Amiodarone at this time.?He is off his Metoprolol at present, unclear why, could be related to BPs on the low side. Can restart if needed for elevated HR..? He is off Eliquis due to GIB. 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 Can plan to restart Eliquis Only if clear by GI to do so. May need to discuss Watchman device in future if he is unable to tolerate anticoagulation. Ongoing tele monitoring. - He follows with Dr Melton as outpt <ELE Gil - Last Filed: 04/04/21 11:16> Hx of PAF. Had been on Amiodarone and Metoprolol. Amiodarone stopped on admit due to elevated LFTs. Tele showing SR, rates 70 up to 120. Will continue to hold Amiodarone at this time.?He is off his Metoprolol at present, unclear why, could be related to BPs on the low side. Can restart if needed for elevated HR..? He is off Eliquis due to GIB. 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 Can plan to restart Eliquis Only if clear by GI to do so. May need to discuss Watchman device in future if he is unable to tolerate anticoagulation. Ongoing tele monitoring. - He follows with Dr Melton as outpt Patient remains in sinus rhythm. Off amiodarone therapy. Off oral anticoagulation due to GI bleed with significant anemia. Will need to discuss options as outpatient. <Kyler Horn MD - Last Filed: 04/04/21 11:32> (3) Aortic stenosis: Status: Acute <ELE Gil - Last Filed: 04/04/21 11:16> Assessment and Plan: Moderate on echo. mean gradiant 15mmhg, SHANNAN 1.3 cm2. Needs to be followed as outpt <ELE Gil - Last Filed: 04/04/21 11:16> (4) Prolonged Q-T interval on ECG: Status: Acute <ELE Gil - Last Filed: 04/04/21 11:16> Assessment and Plan: EKG 03/26/21 shows QTc 543ms. Tele monitor visably showing long QT. Labs this am show K 4.0. Mg 2.5 on 03/26. Will recheck Mg today. Will order EKG for today. Avoid meds that prolong QT interval. <ELE Gil - Last Filed: 04/04/21 11:16> Fall Risk Details Current Medications: Current Medications Acetaminophen (Acetaminophen 325 Mg Tablet) 650 mg PO Q6H PRN PRN Reason: Pain, Mild (Pain Scale 1-3) Benzonatate (Benzonatate 100 Mg Capsule) 100 mg PO TID PRN PRN Reason: Cough Last Admin: 04/03/21 14:59 Dose: 100 mg Documented by: Dextrose (Dextrose 50 % 25 Gm/50 Ml Vial) 25 gm IVPUSH Q15M PRN; Protocol PRN Reason: per Hypoglycemia Standing Ord. Glucose (Glucose Gel 15 Gm Gel..Gram.) 15 gm PO Q15M PRN; Protocol PRN Reason: per Hypoglycemia Standing Ord. Furosemide 200 mg/ Sodium (Chloride) 100 mls @ 2.5 mls/hr IVCONT .Q24H [facility] Last Admin: 04/03/21 14:59 Dose: 5 mg/hr, 2.5 mls/hr Documented by: Insulin Human Lispro (Insulin Lispro 100 Unit/Ml 3 Ml Vial) 0 unit SUBCUT QIDACHS [facility]; Protocol Last Admin: 04/04/21 07:56 Dose: Not Given Documented by: Omeprazole (Omeprazole 20 Mg Capsule.) 20 mg PO DAILY@0630 [facility] Last Admin: 04/04/21 06:07 Dose: 20 mg Documented by: Ondansetron HCl (Ondansetron Hcl 4 Mg/2 Ml Vial) 4 mg IVPUSH Q4H PRN PRN Reason: GI Upset Last Admin: 04/02/21 22:02 Dose: 4 mg Documented by: Ondansetron HCl (Ondansetron Hcl 4 Mg/2 Ml Vial) 4 mg IVPUSH ONCE PRN PRN Reason: Nausea and Vomiting Last Admin: 03/28/21 22:59 Dose: 4 mg Documented by: Pharmacy Consult (Consult Rx Perform Med Rec) 1 each MISCELLANE ONCE PRN PRN Reason: Consult order Polyethylene Glycol (Polyethylene Glycol 3350 17 Gm Powd.Pack) 17 gm PO DAILY [facility] Last Admin: 04/03/21 10:09 Dose: 17 gm Documented by: Pramoxine HCl (Pramoxine Hcl 1 % Rectal Foam 15 Gm) 1 appl SC BID [facility] Last Admin: 04/03/21 21:01 Dose: 1 appl Documented by: Sodium Chloride (0.9 % Sodium Chloride Flush 3 Ml Syringe) 3 ml IVFLUSH QSHIFT [facility] Last Admin: 04/03/21 23:50 Dose: 3 ml Documented by: Vitamin D (Cholecalciferol (Vitamin D3) 25 Mcg Tablet) 25 mcg PO DAILY [facility] Last Admin: 04/03/21 10:09 Dose: 25 mcg Documented by: <ELE Gil - Last Filed: 04/04/21 11:16> Time Spent With Patient Time: Total time spent is greater than 50% in coordination of care (as documented) at patient's floor/unit and/or counseling patient: <ELE Gil - Last Filed: 04/04/21 11:16> Time with patient: 25 - 35 minutes <ELE Gil - Last Filed: 04/04/21 11:16> Progress Note: Quality Stroke Does the patient have a stroke diagnosis?: No <ELE Gil - Last Filed: 04/04/21 11:16> Procedures Date of Service Date of Service: 04/04/21 <ELE Gil - Last Filed: 04/04/21 11:16>
--- NOTE | 2021-04-04 11:25 | PM.PNNEP ---
Subjective Subjective Date of Service: 04/04/21 Principal diagnosis: CHF, PAF, GIB, anemia Interval history: Evens noted Responding to IV LAsix Physical Exam Vital Signs: Vital Signs: Last Vital Signs Temp 98.4 F 04/04/21 07:45 Pulse 73 04/04/21 07:45 Resp 20 04/04/21 07:45 BP 109/53 L 04/04/21 07:45 Pulse Ox 95 04/04/21 07:45 Body Mass Index 28.3 Const: General: comfortable Neck: Neck: Yes supple and Yes no JVD Cardio: Jugular venous distension: no JVD Palpation: no palpable S3 Heart sounds: no rubs GI: Inspection: Yes normal to inspection Palpation (GI): Soft to palpation Auscultation: normal bowel sounds Neuro: Motor exam (neuro): No Asterixis during motor activity present Objective Data Labs CBC & Chem 7: 04/03/21 05:40 04/04/21 09:45 Labs: Laboratory Results - last 24 hr 04/03/21 04/03/21 04/03/21 11:34 16:13 20:37 Sodium Potassium Chloride Carbon Dioxide Anion Gap BUN Creatinine Estim Creat Clear Calc Estimated GFR POC Glucose 153 H 164 H 189 H Random Glucose Calcium 04/04/21 04/04/21 07:10 09:45 Sodium 133 L Potassium 4.0 Chloride 101 Carbon Dioxide 22 Anion Gap 14 BUN 44 H Creatinine 2.25 H Estim Creat Clear Calc 27.2 Estimated GFR 28 POC Glucose 136 H Random Glucose 153 H Calcium 7.7 L Procedures Date of Service Date of Service: 04/04/21 Assessment & Plan Assessment and plan (1) Hyponatremia: Status: Acute Assessment and Plan: Hypervolemic hyponatremia Na is improving Keep Lasix and O > I Restrict PO Water intake (2) Chronic kidney disease (CKD) stage G4/A1, severely decreased glomerular filtration rate (GFR) between 15-29 mL/min/1.73 square meter and albuminuria creatinine ratio less than 30 mg/g: Status: Acute Assessment and Plan: Renal function is better No indication for dialysis Time Spent With Patient Time with patient: 15 - 24 minutes Progress Note: Quality Stroke Does the patient have a stroke diagnosis?: No
[2021-04-04 11:27] LABS: Glucose, Whole Blood 161 mg/dL (60-115)
[2021-04-04] MEDS: Pramoxine HCl 1 % Rectal Foam 15 GM 1 APPL PR ×2 (11:27→21:06)
[2021-04-04] MEDS: 0.9 % Sodium Chloride Flush 3 ML SYRINGE IVFLUSH (11:31)
[2021-04-04] MEDS: polyethylene glycoL 3350 17 GM POWD.PACK PO (11:31)
[2021-04-04] MEDS: Cholecalciferol (Vitamin D3) 25 MCG TABLET PO (11:31)
[2021-04-04] MEDS: Insulin Lispro 100 UNIT/ML 3 ML VIAL SUBCUT ×3 (11:59→21:05)
--- NOTE | 2021-04-04 15:21 | MHC.CM.PN ---
per rounds possible dc 1 to 2 days pt is recommending str spoke with pt and his 1st [facility] where is was recently dcd from then luz and mona to[facility]
[2021-04-04 16:29] LABS: Glucose, Whole Blood 215 mg/dL (60-115)
[2021-04-04 20:24] LABS: Glucose, Whole Blood 207 mg/dL (60-115)
[2021-04-04] MEDS: Furosemide 200 MG in 0.9 % Sodium Chloride 80 ML IVCONT (21:06)
[2021-04-05] VITALS (8 sets, daily range): BP systolic 102–139; BP diastolic 51–65; PULSE 67–80; RESP 16–17; TEMP 35.8–37.3; O2SAT 92–96
[2021-04-05] MEDS: Omeprazole 20 MG CAPSULE.DR PO (06:25)
[2021-04-05 06:50] LABS: Hemoglobin 9.7 g/dl (14.0-18.0); Mean Platelet Volume 10.1 fL (9.4-12.4); PLT CLUMP 1; Red Cell Distribution Width 17.3 % (11.0-16.0)
[2021-04-05 06:52] LABS: Hematocrit 28.3 % (42-52); Mean Corpuscular HGB Conc 34.3 g/dl (31.0-36.0); Mean Corpuscular Hemoglobin 34.5 pg (27.0-33.0); Mean Corpuscular Volume 100.7 fL (80-98); Platelet Count 110 X10*3/uL (160-400); Red Blood Count 2.81 X10*6/uL (4.60-5.80); White Blood Count 5.6 X10*3/uL (4.8-10.8)
[2021-04-05 07:10] LABS: B Type Natriuretic Peptide 1888 pg/mL (<100)
[2021-04-05 07:12] LABS: Anion Gap 13 (12-20); Blood Urea Nitrogen 41 mg/dL (9-16); Calcium 7.6 mg/dL (8.4-10.2); Carbon Dioxide 23 mmol/L (22-29); Chloride 100 mmol/L (96-108); Creatinine Clr Calc Pharmacy 30.2; Estimated Glomerular Filt Rate 32; Glucose Random 141 mg/dL (60-115); Potassium 3.6 mmol/L (3.3-5.1); Sodium 132 mmol/L (135-145)
[2021-04-05 07:36] LABS: Glucose, Whole Blood 134 mg/dL (60-115)
--- NOTE | 2021-04-05 08:30 | P.PNCA_ITS ---
Subjective Subjective Date of Service: 04/05/21 <ELE Gil - Last Filed: 04/05/21 10:09> 04/05/21 <Kyler Horn MD - Last Filed: 04/05/21 12:17> Principal diagnosis: CHF, PAF, GIB, anemia <ELE Gil - Last Filed: 04/05/21 10:09> Interval history: Cardiology follow up for the CHF, PAF hx. Seen at 0815. Today he reports feeling OK. He states he slept well. Breathing comfortable at rest. He recalls having some sob when getting up to a chair yesterday. No chest pains, palpitations. Still has leg swelling but less. Able to feed self breakfast. Oriented and appropriate this am. <ELE Gil - Last Filed: 04/05/21 10:09> Review of Systems Review of Systems as above <ELE Gil - Last Filed: 04/05/21 10:09> Yes all other systems are reviewed and are negative <ELE Gil - Last Filed: 04/05/21 10:09> Physical Exam Vital Signs: Last Vital Signs Temp 96.4 F L 04/05/21 07:16 Pulse 77 04/05/21 07:16 Resp 17 04/05/21 04:00 BP 139/65 04/05/21 07:16 Pulse Ox 95 04/05/21 07:16 Body Mass Index 28.3 <ELE Gil - Last Filed: 04/05/21 10:09> Const General: cooperative, no acute distress, alert and awake <ELE Gil - Last Filed: 04/05/21 10:09> Orientation/consciousness: patient oriented x3 <ELE Gil - Last Filed: 04/05/21 10:09> HENMT Other: Seems to have less jaundice then prior days <ELE Gil - Last Filed: 04/05/21 10:09> Neck Neck: Yes normal visual inspection and Yes JVD (mild elevation, improving) <ELE Gil - Last Filed: 04/05/21 10:09> Resp Effort & Inspection: normal respiratory effort, able to speak in complete sentences and not labored <Danielle Echevarria NP-C - Last Filed: 04/05/21 10:09> Auscultation: clear to auscultation bilaterally, rales (Left base, less in right base), no rhonchi and no wheezes <Danielle Echevarria NPC - Last Filed: 04/05/21 10:09> Cardio Jugular venous distension: JVD present <Danielle Echevarria NPC - Last Filed: 04/05/21 10:09> Palpation: normal PMI <[facility]varria [facility] - Last Filed: 04/05/21 10:09> Rate: regular rate <Danielle Echevarria NP - Last Filed: 04/05/21 10:09> Rhythm: regular rhythm <Danielle Echevarria NP - Last Filed: 04/05/21 10:09> Heart sounds: S1 normal heart sound present, S2 normal heart sound present and Murmur heart sound present (systolic) <Danielle Echevarria NP-C - Last Filed: 04/05/21 10:09> Peripheral pulses: Peripheral pulses 2+ throughout <Danielle Echevarria [employer]ISTH[employer] INSTRUCTOR-C - Last Filed: 04/05/21 10:09> GI Inspection: Yes normal to inspection <Danielle Echevarria NP-C - Last Filed: 04/05/21 10:09> Neuro General: patient oriented x3 <Danielle Echevarria NPC - Last Filed: 04/05/21 10:09> Extrem Other: soft pitting edema to posterior thighs - less overall <Danielle Echevarria NP-C - Last Filed: 04/05/21 10:09> Results Labs and Meds Result diagrams: : 04/05/21 05:45 04/05/21 05:45 <Danielle Echevarria NP - Last Filed: 04/05/21 10:09> Lab results: Laboratory Results - last 24 hr 04/04/21 04/04/21 04/04/21 09:45 11:10 16:24 WBC RBC Hgb Hct MCV MCH MCHC RDW Plt Count MPV Absolute Nucleated RBC Nucleated RBC % (auto) Sodium 133 L Potassium 4.0 Chloride 101 Carbon Dioxide 22 Anion Gap 14 BUN 44 H Creatinine 2.25 H Estim Creat Clear Calc 27.2 Estimated GFR 28 POC Glucose 161 H 215 H Random Glucose 153 H Calcium 7.7 L Magnesium 2.0 B-Natriuretic Peptide 04/04/21 04/05/21 04/05/21 20:10 05:45 05:45 WBC 5.6 RBC 2.81 L Hgb 9.7 L Hct 28.3 L MCV 100.7 H MCH 34.5 H MCHC 34.3 RDW 17.3 H Plt Count 110 L MPV 10.1 Absolute Nucleated RBC 0.000 Nucleated RBC % (auto) 0.0 Sodium 132 L Potassium 3.6 Chloride 100 Carbon Dioxide 23 Anion Gap 13 BUN 41 H Creatinine 2.03 H Estim Creat Clear Calc 30.2 Estimated GFR 32 POC Glucose 207 H Random Glucose 141 H Calcium 7.6 L Magnesium B-Natriuretic Peptide 04/05/21 04/05/21 05:45 07:26 WBC RBC Hgb Hct MCV MCH MCHC RDW Plt Count MPV Absolute Nucleated RBC Nucleated RBC % (auto) Sodium Potassium Chloride Carbon Dioxide Anion Gap BUN Creatinine Estim Creat Clear Calc Estimated GFR POC Glucose 134 H Random Glucose Calcium Magnesium B-Natriuretic Peptide 1888 H <ELE Gil - Last Filed: 04/05/21 10:09> Progress Note: A&P Assessment and plan (1) Congestive heart failure: Status: Acute <ELE Gil - Last Filed: 04/05/21 10:09> Assessment and Plan: Acute on Chronic diastolic CHF following IV fluids and blood transfusions earlier this admit. Being diuresed with IV lasix drip 5 mg hr. Urine outpts inaccurate - he tells me that he wet the bed during the night. BNP down to 1888 this am, from 4448 04/01. His BNP had been in 500s on admit. JVD, edema, rales are less, but still present. O2 sat 95% on RA. Cr down to 2.03 today, from 2.25 yesterday. Echo shows normal EF, mild increase in RSVP, grade II diastolic dysfunction. Needs ongoing diuresis with IV Lasix drip. Strict I+O monitoring. Recommend use of Condom catheter to assist with accurate I+Os. Close monitoring of electrolyte and kidney function with electrolyte replacement as warranted. Today he does tell me that he now recalls having a history of CHF. We will follow. <ELE Gil - Last Filed: 04/05/21 10:09> Acute on Chronic diastolic CHF following IV fluids and blood transfusions earlier this admit. Being diuresed with IV lasix drip 5 mg hr. Urine outpts inaccurate - he tells me that he wet the bed during the night. BNP down to 1888 this am, from 4448 04/01. His BNP had been in 500s on admit. JVD, edema, rales are less, but still present. O2 sat 95% on RA. Cr down to 2.03 today, from 2.25 yesterday. Echo shows normal EF, mild increase in RSVP, grade II diastolic dysfunction. Needs ongoing diuresis with IV Lasix drip. Strict I+O monitoring. Recommend use of Condom catheter to assist with accurate I+Os. Close monitoring of electrolyte and kidney function with electrolyte replacement as wa rranted. Today he does tell me that he now recalls having a history of CHF. We will follow. Patient seen and examined. Case discussed with Danielle Echevarria. Patient continues to remain fluid overloaded heart failure. Continue IV diuresis with Lasix. Strict intake and output chart needs to be pursued, output is not well maintain on this gentleman. Importance of this was discussed with the staff. Blood pressure is optimized. Start low-dose metoprolol therapy. Continue Lasix drip. Follow BMP and BNP. Out of bed to chair. Replace electrolytes as needed. <Kyler Horn MD - Last Filed: 04/05/21 12:17> (2) Atrial fibrillation: Status: Acute <ELE Gil - Last Filed: 04/05/21 10:09> Assessment and Plan: Hx of PAF. Had been on Amiodarone and Metoprolol. Amiodarone stopped on admit due to elevated LFTs. Tele showing SR, rates 70 to 80s. Metoprolol has been held, likely due to soft BP and CHF. Will now restart on low dose Metoprolol tartrate 12.5mg bid. His Eliquis remains on hold due to GIB on admit. He has bleeding from radiation proctitis. Has recieved transfusions this admit. Hgb 9.7 Plan to restart Eliquis ONLY if cleared by GI to do so. May need to discuss Watchman device as outpt if unable to take anticoagulation. Stroke with while off anticoagulation reviewed with him. <ELE Gil - Last Filed: 04/05/21 10:09> Hx of PAF. Had been on Amiodarone and Metoprolol. Amiodarone stopped on admit due to elevated LFTs. Tele showing SR, rates 70 to 80s. Metoprolol has been held, likely due to soft BP and CHF. Will now restart on low dose Metoprolol tartrate 12.5mg bid. His Eliquis remains on hold due to GIB on admit. He has bleeding from radiation proctitis. Has recieved transfusions this admit. Hgb 9.7 Plan to restart Eliquis ONLY if cleared by GI to do so. May need to discuss Watchman device as outpt if unable to take anticoagulation. Stroke with while off anticoagulation reviewed with him. Atrial fibrillation currently suppressed. Start metoprolol therapy, low-dose. Off anticoagulation due to significant GI bleed and anemia. Need GI input in to initiation of oral anticoagulants. <Kyler Horn MD - Last Filed: 04/05/21 12:17> (3) Prolonged Q-T interval on ECG: Status: Acute <ELE Gil - Last Filed: 04/05/21 10:09> Assessment and Plan: EKG 03/26/21 shows QTc 543ms.? EKG yesterday shows SR, ist degree avb, QTc 519ms. Labs this am show K 3.7, Mg 2. Keep off amiodarone. Avoid meds that prolong QT interval.? <ELE Gil - Last Filed: 04/05/21 10:09> (4) Aortic stenosis: Status: Acute <ELE Gil - Last Filed: 04/05/21 10:09> Assessment and Plan: Moderate on echo. mean gradiant 15mmhg, SHANNAN 1.3 cm2.? Needs to be followed as outpt. Follows with Dr Melton. <ELE Gil - Last Filed: 04/05/21 10:09> (5) Anemia: Status: Acute <Danielle Echevarria ELE - Last Filed: 04/05/21 10:09> (6) Elevated liver enzymes: Status: Acute <Danielle Echevarria NPMadeleine - Last Filed: 04/05/21 10:09> Assessment and Plan: Elevated LFT, including bilirubin on admit. Recommend further evaluation. <Danielle Echevarria ELE - Last Filed: 04/05/21 10:09> Fall Risk Details Current Medications: Current Medications Acetaminophen (Acetaminophen 325 Mg Tablet) 650 mg PO Q6H PRN PRN Reason: Pain, Mild (Pain Scale 1-3) Benzonatate (Benzonatate 100 Mg Capsule) 100 mg PO TID PRN PRN Reason: Cough Last Admin: 04/03/21 14:59 Dose: 100 mg Documented by: Dextrose (Dextrose 50 % 25 Gm/50 Ml Vial) 25 gm IVPUSH Q15M PRN; Protocol PRN Reason: per Hypoglycemia Standing Ord. Glucose (Glucose Gel 15 Gm Gel..Gram.) 15 gm PO Q15M PRN; Protocol PRN Reason: per Hypoglycemia Standing Ord. Furosemide 200 mg/ Sodium (Chloride) 100 mls @ 2.5 mls/hr IVCONT .Q24H [facility] Last Admin: 04/04/21 21:06 Dose: 5 mg/hr, 2.5 mls/hr Documented by: Insulin Human Lispro (Insulin Lispro 100 Unit/Ml 3 Ml Vial) 0 unit SUBCUT QIDACHS [facility]; Protocol Last Admin: 04/05/21 07:43 Dose: Not Given Documented by: Omeprazole (Omeprazole 20 Mg Capsule.) 20 mg PO DAILY@0630 [facility] Last Admin: 04/05/21 06:25 Dose: 20 mg Documented by: Ondansetron HCl (Ondansetron Hcl 4 Mg/2 Ml Vial) 4 mg IVPUSH Q4H PRN PRN Reason: GI Upset Last Admin: 04/02/21 22:02 Dose: 4 mg Documented by: Ondansetron HCl (Ondansetron Hcl 4 Mg/2 Ml Vial) 4 mg IVPUSH ONCE PRN PRN Reason: Nausea and Vomiting Last Admin: 03/28/21 22:59 Dose: 4 mg Documented by: Pharmacy Consult (Consult Rx Perform Med Rec) 1 each MISCELLANE ONCE PRN PRN Reason: Consult order Polyethylene Glycol (Polyethylene Glycol 3350 17 Gm Powd.Pack) 17 gm PO DAILY [facility] Last Admin: 04/04/21 11:31 Dose: 17 gm Documented by: Pramoxine HCl (Pramoxine Hcl 1 % Rectal Foam 15 Gm) 1 appl NV BID [facility] Last Admin: 04/04/21 21:06 Dose: 1 appl Documented by: Sodium Chloride (0.9 % Sodium Chloride Flush 3 Ml Syringe) 3 ml IVFLUSH QSHIFT [facility] Last Admin: 04/04/21 21:08 Dose: Not Given Documented by: Vitamin D (Cholecalciferol (Vitamin D3) 25 Mcg Tablet) 25 mcg PO DAILY [facility] Last Admin: 04/04/21 11:31 Dose: 25 mcg Documented by: <ELE Gil - Last Filed: 04/05/21 10:09> Time Spent With Patient Time: Total time spent is greater than 50% in coordination of care (as documented) at patient's floor/unit and/or counseling patient: <ELE Gil - Last Filed: 04/05/21 10:09> Time with patient: 25 - 35 minutes <ELE Gil - Last Filed: 04/05/21 10:09> Progress Note: Quality Stroke Does the patient have a stroke diagnosis?: No <ELE Gil - Last Filed: 04/05/21 10:09> Procedures Date of Service Date of Service: 04/05/21 <ELE Gil - Last Filed: 04/05/21 10:09>
[2021-04-05] MEDS: Cholecalciferol (Vitamin D3) 25 MCG TABLET PO (09:42)
[2021-04-05] MEDS: Pramoxine HCl 1 % Rectal Foam 15 GM 1 APPL PR ×2 (09:42→21:42)
[2021-04-05 11:06] LABS: Glucose, Whole Blood 154 mg/dL (60-115)
[2021-04-05] MEDS: Metoprolol Tartrate 12.5 MG HALFTAB PO ×2 (11:43→21:37)
[2021-04-05] MEDS: Insulin Lispro 100 UNIT/ML 3 ML VIAL SUBCUT ×3 (11:44→21:38)
--- NOTE | 2021-04-05 12:43 | HO.PM.IMPN ---
Subjective Subjective Date of Service: 04/05/21 Interval History: Seen examined Follow-up for CHF, still with lower extremity edema. Reports feeling short of breath when getting up to the chair yesterday. No shortness of breath at rest. Denies shortness of breath overnight although always sleeps slightly elevated. Denies chest pain Review of Systems Review of Systems: Yes all other systems are reviewed and are negative Constitutional Constitutional: Denies chills and Denies fever(s) Cardiovascular Cardiovascular: Denies chest pain Respiratory Respiratory: Denies cough Gastrointestinal Gastrointestinal: Denies abdominal pain Physical Exam Vital Signs: Vital Signs: Last Vital Signs Temp 98.6 F 04/05/21 11:22 Pulse 77 04/05/21 11:43 Resp 17 04/05/21 04:00 BP 121/59 L 04/05/21 11:43 Pulse Ox 94 04/05/21 11:22 Body Mass Index 28.3 Const: General: alert, awake and ill appearing Nutritional Appearance: well nourished Orientation/consciousness: patient oriented x3 HENMT: Head: Yes normocephalic and Yes atraumatic Eyes: Sclerae: sclerae normal Pupils: Equal, round and reactive pupils present Chest: Chest palpation & inspection: normal inspection of the chest Resp: Effort & Inspection: normal respiratory effort and no respiratory distress Auscultation: rales Cardio: Jugular venous distension: JVD Rate: regular rate Rhythm: regular rhythm GI: Palpation (GI): Soft to palpation and nontender Neuro: General: patient oriented x3 Cranial nerves: Yes CN's II-XII intact bilaterally, Yes Equal, round and reactive pupils present and Yes Bilaterally intact EOM present Extrem: Other: Bilateral leg edema Objective Data Active Medications Acetaminophen (Acetaminophen 325 Mg Tablet) 650 mg PO Q6H PRN PRN Reason: Pain, Mild (Pain Scale 1-3) Benzonatate (Benzonatate 100 Mg Capsule) 100 mg PO TID PRN PRN Reason: Cough Last Admin: 04/03/21 14:59 Dose: 100 mg Documented by: SUZY Dextrose (Dextrose 50 % 25 Gm/50 Ml Vial) 25 gm IVPUSH Q15M PRN; Protocol PRN Reason: per Hypoglycemia Standing Ord. Glucose (Glucose Gel 15 Gm Gel..Gram.) 15 gm PO Q15M PRN; Protocol PRN Reason: per Hypoglycemia Standing Ord. Furosemide 200 mg/ Sodium (Chloride) 100 mls @ 2.5 mls/hr IVCONT .Q24H [facility] Last Admin: 04/04/21 21:06 Dose: 5 mg/hr, 2.5 mls/hr Documented by: RADHA Insulin Human Lispro (Insulin Lispro 100 Unit/Ml 3 Ml Vial) 0 unit SUBCUT QIDACHS [facility]; Protocol Last Admin: 04/05/21 11:44 Dose: 2 unit Documented by: SZUY Metoprolol Tartrate (Metoprolol Tartrate 12.5 Mg Halftab) 12.5 mg PO BID [facility]; Protocol Last Admin: 04/05/21 11:43 Dose: 12.5 mg Documented by: SUZY Omeprazole (Omeprazole 20 Mg Capsule.Dr) 20 mg PO DAILY@0630 [facility] Last Admin: 04/05/21 06:25 Dose: 20 mg Documented by: RADHA Ondansetron HCl (Ondansetron Hcl 4 Mg/2 Ml Vial) 4 mg IVPUSH Q4H PRN PRN Reason: GI Upset Last Admin: 04/02/21 22:02 Dose: 4 mg Documented by: KAREN Ondansetron HCl (Ondansetron Hcl 4 Mg/2 Ml Vial) 4 mg IVPUSH ONCE PRN PRN Reason: Nausea and Vomiting Last Admin: 03/28/21 22:59 Dose: 4 mg Documented by: WILL Pharmacy Consult (Consult Rx Perform Med Rec) 1 each MISCELLANE ONCE PRN PRN Reason: Consult order Polyethylene Glycol (Polyethylene Glycol 3350 17 Gm Powd.Pack) 17 gm PO DAILY [facility] Last Admin: 04/05/21 09:41 Dose: Not Given Documented by: SUZY Non-Admin Reason: Patient Refused Pramoxine HCl (Pramoxine Hcl 1 % Rectal Foam 15 Gm) 1 appl NC BID [facility] Last Admin: 04/05/21 09:42 Dose: 1 appl Documented by: SUZY Sodium Chloride (0.9 % Sodium Chloride Flush 3 Ml Syringe) 3 ml IVFLUSH QSHIFT [facility] Last Admin: 04/05/21 09:43 Dose: Not Given Documented by: SUZY Non-Admin Reason: IV Running Vitamin D (Cholecalciferol (Vitamin D3) 25 Mcg Tablet) 25 mcg PO DAILY [facility] Last Admin: 04/05/21 09:42 Dose: 25 mcg Documented by: SUZY Labs CBC & Chem 7: 04/05/21 05:45 04/05/21 05:45 Labs: Laboratory Results - last 24 hr 04/04/21 04/04/21 04/05/21 16:24 20:10 05:45 MCV MCH MCHC RDW Plt Count MPV Absolute Nucleated RBC Nucleated RBC % (auto) Anion Gap 13 Estim Creat Clear Calc 30.2 Estimated GFR 32 POC Glucose 215 H 207 H Random Glucose 141 H Calcium 7.6 L B-Natriuretic Peptide 04/05/21 04/05/21 04/05/21 05:45 05:45 07:26 MCV 100.7 H MCH 34.5 H MCHC 34.3 RDW 17.3 H Plt Count 110 L MPV 10.1 Absolute Nucleated RBC 0.000 Nucleated RBC % (auto) 0.0 Anion Gap Estim Creat Clear Calc Estimated GFR POC Glucose 134 H Random Glucose Calcium B-Natriuretic Peptide 1888 H 04/05/21 10:50 MCV MCH MCHC RDW Plt Count MPV Absolute Nucleated RBC Nucleated RBC % (auto) Anion Gap Estim Creat Clear Calc Estimated GFR POC Glucose 154 H Random Glucose Calcium B-Natriuretic Peptide Assessment and Plan (1) Acute congestive heart failure: Status: Acute (2) Severe anemia: Status: Acute Assessment and Plan: 81 yo M who initially presented on 03/26 with complaints of lower GI bleed. His course has been complicated by multiple issues. Acute on Chronic HFpEF suspected secondary to multiple PRBCs with baseline of chronic HF + A. fib on lasix gtt at 5mg/hr improving, but clinically still overloaded i/o, daily labs cardiology following HypoNa suspected hypervoluemic improving with diuresis monitor prolonged qt amiodorone on hold Avoid QT prolonging medication Acute blood loss anemia due to GI bleed -- see GI notes for full details s/p EGD (mild GAVE, varices + cadidiasis (no biposy seen -- will d/w GI) + Colonoscopy (which showed active bleeding from radiation proc. site) h/h stable >48 hours now with no clinical evidence of blood loss proctofoam BID x 4 weeks per GI CKD4 renal function improving with diuretics, monitor daily Nephrology input appreciated A. Fib rates controlled without any rate controlling drugs -- add rate control drugs if rec. by cardiology not on OAC currently due to Gi bleed Hepatitis chronic, cause unclear possibly r/t amiodorone, on hold per cardiology rec follows with GI -- will need OP f/u Full Code DVT pptx, Mechanical due to GI bleed. Attending-Dr. Gutierrez Quality Stroke Does the patient have a stroke diagnosis?: No VTE Prior VTE?: No VTE Risk Level:: Medical - moderate - high VTE Device Contraindication: N/A - Device Ordered VTE Drug Contraindication: Treatment Not Indicated
--- NOTE | 2021-04-05 13:30 | PM.PNNEP ---
Subjective Subjective Date of Service: 04/05/21 Principal diagnosis: CHF, PAF, GIB, anemia Interval history: Seen examined Follow-up for CHF, still with lower extremity edema. Reports feeling short of breath when getting up to the chair yesterday. No shortness of breath at rest. Denies shortness of breath overnight although always sleeps slightly elevated. Denies chest pain Physical Exam Vital Signs: Vital Signs: Last Vital Signs Temp 98.6 F 04/05/21 11:22 Pulse 77 04/05/21 11:43 Resp 17 04/05/21 04:00 BP 121/59 L 04/05/21 11:43 Pulse Ox 94 04/05/21 11:22 Body Mass Index 28.3 Const: General: comfortable Neck: Neck: Yes supple and Yes no JVD Cardio: Jugular venous distension: no JVD Palpation: no palpable S3 Heart sounds: no rubs GI: Inspection: Yes normal to inspection Palpation (GI): Soft to palpation Auscultation: normal bowel sounds Neuro: Motor exam (neuro): No Asterixis during motor activity present Objective Data Labs CBC & Chem 7: 04/05/21 05:45 04/05/21 05:45 Labs: Laboratory Results - last 24 hr 04/04/21 04/04/21 04/05/21 16:24 20:10 05:45 WBC RBC Hgb Hct MCV MCH MCHC RDW Plt Count MPV Absolute Nucleated RBC Nucleated RBC % (auto) Sodium 132 L Potassium 3.6 Chloride 100 Carbon Dioxide 23 Anion Gap 13 BUN 41 H Creatinine 2.03 H Estim Creat Clear Calc 30.2 Estimated GFR 32 POC Glucose 215 H 207 H Random Glucose 141 H Calcium 7.6 L B-Natriuretic Peptide 04/05/21 04/05/21 04/05/21 05:45 05:45 07:26 WBC 5.6 RBC 2.81 L Hgb 9.7 L Hct 28.3 L MCV 100.7 H MCH 34.5 H MCHC 34.3 RDW 17.3 H Plt Count 110 L MPV 10.1 Absolute Nucleated RBC 0.000 Nucleated RBC % (auto) 0.0 Sodium Potassium Chloride Carbon Dioxide Anion Gap BUN Creatinine Estim Creat Clear Calc Estimated GFR POC Glucose 134 H Random Glucose Calcium B-Natriuretic Peptide 1888 H 04/05/21 10:50 WBC RBC Hgb Hct MCV MCH MCHC RDW Plt Count MPV Absolute Nucleated RBC Nucleated RBC % (auto) Sodium Potassium Chloride Carbon Dioxide Anion Gap BUN Creatinine Estim Creat Clear Calc Estimated GFR POC Glucose 154 H Random Glucose Calcium B-Natriuretic Peptide Procedures Date of Service Date of Service: 04/05/21 Assessment & Plan Assessment and plan (1) Hyponatremia: Status: Acute Assessment and Plan: Hypervolemic hyponatremia Na is improving Keep Lasix and O > I Can switch to intermitent LASIX Restrict PO Water intake (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
[2021-04-05 16:10] LABS: Glucose, Whole Blood 207 mg/dL (60-115)
[2021-04-05 20:06] LABS: Glucose, Whole Blood 180 mg/dL (60-115)
[2021-04-05] MEDS: Benzonatate 100 MG CAPSULE PO (21:37)
[2021-04-06] VITALS (8 sets, daily range): BP systolic 106–121; BP diastolic 55–68; PULSE 63–70; RESP 14–18; TEMP 36.7–36.9; O2SAT 94–97
[2021-04-06] MEDS: Omeprazole 20 MG CAPSULE.DR PO (05:14)
[2021-04-06 06:45] LABS: Hemoglobin 9.4 g/dl (14.0-18.0); Mean Corpuscular HGB Conc 33.6 g/dl (31.0-36.0); Mean Corpuscular Hemoglobin 33.8 pg (27.0-33.0); Mean Corpuscular Volume 100.7 fL (80-98); Mean Platelet Volume 10.2 fL (9.4-12.4); Platelet Count 102 X10*3/uL (160-400); Red Blood Count 2.78 X10*6/uL (4.60-5.80); Red Cell Distribution Width 17.4 % (11.0-16.0); White Blood Count 5.4 X10*3/uL (4.8-10.8)
[2021-04-06 06:53] LABS: Anion Gap 12 (12-20); Blood Urea Nitrogen 42 mg/dL (9-16); Calcium 7.4 mg/dL (8.4-10.2); Carbon Dioxide 22 mmol/L (22-29); Chloride 102 mmol/L (96-108); Creatinine Clr Calc Pharmacy 30.3; Estimated Glomerular Filt Rate 32; Glucose Random 145 mg/dL (60-115); Potassium 3.3 mmol/L (3.3-5.1); Sodium 133 mmol/L (135-145)
[2021-04-06 07:38] LABS: Glucose, Whole Blood 137 mg/dL (60-115)
[2021-04-06] MEDS: Metoprolol Tartrate 12.5 MG HALFTAB PO ×2 (09:21→22:17)
[2021-04-06] MEDS: polyethylene glycoL 3350 17 GM POWD.PACK PO (09:21)
[2021-04-06] MEDS: Cholecalciferol (Vitamin D3) 25 MCG TABLET PO (09:22)
[2021-04-06] MEDS: Pramoxine HCl 1 % Rectal Foam 15 GM 1 APPL PR ×2 (09:23→22:20)
[2021-04-06 11:26] LABS: Glucose, Whole Blood 148 mg/dL (60-115)
--- NOTE | 2021-04-06 11:38 | PM.PNNEP ---
Subjective Subjective Date of Service: 04/06/21 Principal diagnosis: CHF, PAF, GIB, anemia Interval history: Seen examined Follow-up for CHF, still with lower extremity edema. Reports feeling short of breath when getting up to the chair yesterday. No shortness of breath at rest. Denies shortness of breath overnight although always sleeps slightly elevated. Denies chest pain Physical Exam Vital Signs: Vital Signs: Last Vital Signs Temp 98.4 F 04/06/21 11:14 Pulse 63 04/06/21 11:19 Resp 18 04/06/21 11:14 BP 113/56 L 04/06/21 11:19 Pulse Ox 95 04/06/21 11:19 Body Mass Index 28.3 Const: General: comfortable Neck: Neck: Yes supple and Yes no JVD Cardio: Jugular venous distension: no JVD Palpation: no palpable S3 Heart sounds: no rubs GI: Inspection: Yes normal to inspection Palpation (GI): Soft to palpation Auscultation: normal bowel sounds Neuro: Motor exam (neuro): No Asterixis during motor activity present Objective Data Labs CBC & Chem 7: 04/06/21 06:05 04/06/21 06:05 Labs: Laboratory Results - last 24 hr 04/05/21 04/05/21 04/06/21 16:07 20:02 06:05 WBC 5.4 RBC 2.78 L Hgb 9.4 L Hct 28.0 L MCV 100.7 H MCH 33.8 H MCHC 33.6 RDW 17.4 H Plt Count 102 L MPV 10.2 Absolute Nucleated RBC 0.000 Nucleated RBC % (auto) 0.0 Sodium Potassium Chloride Carbon Dioxide Anion Gap BUN Creatinine Estim Creat Clear Calc Estimated GFR POC Glucose 207 H 180 H Random Glucose Calcium 04/06/21 04/06/21 04/06/21 06:05 07:31 11:16 WBC RBC Hgb Hct MCV MCH MCHC RDW Plt Count MPV Absolute Nucleated RBC Nucleated RBC % (auto) Sodium 133 L Potassium 3.3 Chloride 102 Carbon Dioxide 22 Anion Gap 12 BUN 42 H Creatinine 2.02 H Estim Creat Clear Calc 30.3 Estimated GFR 32 POC Glucose 137 H 148 H Random Glucose 145 H Calcium 7.4 L Procedures Date of Service Date of Service: 04/06/21 Assessment & Plan Assessment and plan (1) Hyponatremia: Status: Acute Assessment and Plan: Hypervolemic hyponatremia Na is improving Keep Lasix and O > I Can switch to intermitent LASIX Restrict PO Water intake (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
--- NOTE | 2021-04-06 12:44 | MHC.CM.PN ---
per multi dis rounds pt not expected to dc till possible friday
[2021-04-06] MEDS: Furosemide 200 MG in 0.9 % Sodium Chloride 80 ML IVCONT (12:49)
--- NOTE | 2021-04-06 13:03 | P.PNCA_ITS ---
Subjective Subjective Date of Service: 04/06/21 Principal diagnosis: CHF, PAF, GIB, anemia Interval history: Patient denying any significant symptoms. No palpitations. Remains in sinus rhythm. Still getting Lasix 5 mg an hour. Output chart incontinent. Review of Systems Constitutional: Reports no additional constitutional complaints Cardiovascular: Reports no additional cardiovascular complaints Respiratory: Reports no additional respiratory complaints Gastrointestinal: Reports no additional gastrointestinal complaints Musculoskeletal: Reports no additional musculoskeletal complaints Reports system reviewed and no additional complaints, except as documented Psychiatric: Reports no additional psychiatric complaints Endocrine: Reports no additional endocrine complaints Hematologic/Lymphatic: Reports no additional hematologic/lymphatic complaints Physical Exam Vital Signs: Last Vital Signs Temp 98.4 F 04/06/21 11:14 Pulse 63 04/06/21 11:19 Resp 18 04/06/21 11:14 BP 113/56 L 04/06/21 11:19 Pulse Ox 95 04/06/21 11:19 Body Mass Index 28.3 Const Orientation/consciousness: patient oriented x3 Neck Neck: Yes normal visual inspection, Yes trachea midline, Yes supple and Yes JVD Resp Effort & Inspection: decreased respiratory effort Auscultation: crackles bilateral 1/[address] way up Cardio Jugular venous distension: JVD Palpation: normal PMI Rate: regular rate Rhythm: regular rhythm Heart sounds: S1 normal heart sound present, S2 normal heart sound present, no click, no gallops and Murmur heart sound present systolic mid, decrescendo and crescendo GI Auscultation: normal bowel sounds Neuro General: patient oriented x3 and no focal motor deficits Extrem General: No clubbing, No cyanosis and Yes edema Results Labs and Meds Result diagrams: 04/06/21 06:05 04/06/21 06:05 Lab results: Laboratory Results - last 24 hr 04/05/21 04/05/21 04/06/21 16:07 20:02 06:05 WBC 5.4 RBC 2.78 L Hgb 9.4 L Hct 28.0 L MCV 100.7 H MCH 33.8 H MCHC 33.6 RDW 17.4 H Plt Count 102 L MPV 10.2 Absolute Nucleated RBC 0.000 Nucleated RBC % (auto) 0.0 Sodium Potassium Chloride Carbon Dioxide Anion Gap BUN Creatinine Estim Creat Clear Calc Estimated GFR POC Glucose 207 H 180 H Random Glucose Calcium 04/06/21 04/06/21 04/06/21 06:05 07:31 11:16 WBC RBC Hgb Hct MCV MCH MCHC RDW Plt Count MPV Absolute Nucleated RBC Nucleated RBC % (auto) Sodium 133 L Potassium 3.3 Chloride 102 Carbon Dioxide 22 Anion Gap 12 BUN 42 H Creatinine 2.02 H Estim Creat Clear Calc 30.3 Estimated GFR 32 POC Glucose 137 H 148 H Random Glucose 145 H Calcium 7.4 L Progress Note: A&P Assessment and plan (1) Acute congestive heart failure: Status: Acute Assessment and Plan: Patient with congestive heart failure still has crackles and signs of fluid overload. However output chart is poorly maintain due to patient's inconti nence. This is difficult to manage. Not sure as to overall diuretic will continue IV diuresis with Lasix drip. Strict intake and output chart needs to be pursued. Continue to trend BMP and BNP which may be a way to monitor his heart failure response. Blood pressure is optimized. Maintaining sinus rhythm. (2) Atrial fibrillation: Status: Acute Assessment and Plan: Atrial fibrillation maintaining sinus rhythm. Check LFTs. If LFTs are improved, may need to consider amiodarone therapy again if he has recurrent atrial fibrillation. Not a candidate for oral anticoagulation due to admission with GI bleed and possible active source of bleeding from radiation proctitis. Consider GI input on this matter. Hold off on oral anticoagulation therapy. Will need to consider outpatient follow-up with Cardiology in consideration for Watchman device. Will follow the patient Fall Risk Details Current Medications: Current Medications Acetaminophen (Acetaminophen 325 Mg Tablet) 650 mg PO Q6H PRN PRN Reason: Pain, Mild (Pain Scale 1-3) Benzonatate (Benzonatate 100 Mg Capsule) 100 mg PO TID PRN PRN Reason: Cough Last Admin: 04/05/21 21:37 Dose: 100 mg Documented by: Dextrose (Dextrose 50 % 25 Gm/50 Ml Vial) 25 gm IVPUSH Q15M PRN; Protocol PRN Reason: per Hypoglycemia Standing Ord. Glucose (Glucose Gel 15 Gm Gel..Gram.) 15 gm PO Q15M PRN; Protocol PRN Reason: per Hypoglycemia Standing Ord. Furosemide 200 mg/ Sodium (Chloride) 100 mls @ 2.5 mls/hr IVCONT .Q24H [facility] Last Admin: 04/06/21 12:49 Dose: 5 mg/hr, 2.5 mls/hr Documented by: Insulin Human Lispro (Insulin Lispro 100 Unit/Ml 3 Ml Vial) 0 unit SUBCUT QI [facility]; Protocol Last Admin: 04/06/21 12:35 Dose: Not Given Documented by: Metoprolol Tartrate (Metoprolol Tartrate 12.5 Mg Halftab) 12.5 mg PO BID REPLACED BY [facility]; Protocol Last Admin: 04/06/21 09:21 Dose: 12.5 mg Documented by: Omeprazole (Omeprazole 20 Mg Capsule.) 20 mg PO DAILY@0630 REPLACED BY [facility] Last Admin: 04/06/21 05:14 Dose: 20 mg Documented by: Ondansetron HCl (Ondansetron Hcl 4 Mg/2 Ml Vial) 4 mg IVPUSH Q4H PRN PRN Reason: GI Upset Last Admin: 04/02/21 22:02 Dose: 4 mg Documented by: Ondansetron HCl (Ondansetron Hcl 4 Mg/2 Ml Vial) 4 mg IVPUSH ONCE PRN PRN Reason: Nausea and Vomiting Last Admin: 03/28/21 22:59 Dose: 4 mg Documented by: Pharmacy Consult (Consult Rx Perform Med Rec) 1 each MISCELLANE ONCE PRN PRN Reason: Consult order Polyethylene Glycol (Polyethylene Glycol 3350 17 Gm Powd.Pack) 17 gm PO DAILY REPLACED BY [facility] Last Admin: 04/06/21 09:21 Dose: 17 gm Documented by: Pramoxine HCl (Pramoxine Hcl 1 % Rectal Foam 15 Gm) 1 appl [place] BID REPLACED BY [facility] Last Admin: 04/06/21 09:23 Dose: 1 appl Documented by: Sodium Chloride (0.9 % Sodium Chloride Flush 3 Ml Syringe) 3 ml IVFLUSH QSHIFT REPLACED BY [facility] Last Admin: 04/06/21 09:23 Dose: Not Given Documented by: Vitamin D (Cholecalciferol (Vitamin D3) 25 Mcg Tablet) 25 mcg PO DAILY REPLACED BY [facility] Last Admin: 04/06/21 09:22 Dose: 25 mcg Documented by: Time Spent With Patient Time: Total time spent is greater than 50% in coordination of care (as documented) at patient's floor/unit and/or counseling patient: Time with patient: 25 - 35 minutes Progress Note: Quality Stroke Does the patient have a stroke diagnosis?: No Procedures Date of Service Date of Service: 04/06/21
--- NOTE | 2021-04-06 13:12 | HO.PM.IMPN ---
Subjective Subjective Date of Service: 04/06/21 Interval History: Seen and examined this morning Follow-up for GI bleed, CHF No further GI bleeding. Continues with IV Lasix drip. No chest pain. Was not out of bed yesterday, no shortness of breath at rest Review of Systems Review of Systems: Yes all other systems are reviewed and are negative Constitutional Constitutional: Denies chills and Denies fever(s) Cardiovascular Cardiovascular: Denies chest pain Respiratory Respiratory: Denies cough Gastrointestinal Gastrointestinal: Denies abdominal pain Physical Exam Vital Signs: Vital Signs: Last Vital Signs Temp 98.4 F 04/06/21 11:14 Pulse 63 04/06/21 11:19 Resp 18 04/06/21 11:14 BP 113/56 L 04/06/21 11:19 Pulse Ox 95 04/06/21 11:19 Body Mass Index 28.3 Const: General: comfortable, alert, awake and ill appearing Nutritional Appearance: well nourished Orientation/consciousness: patient oriented x3 HENMT: Head: Yes normocephalic and Yes atraumatic Eyes: Sclerae: sclerae normal Pupils: Equal, round and reactive pupils present Chest: Chest palpation & inspection: normal inspection of the chest Resp: Effort & Inspection: normal respiratory effort and no respiratory distress Auscultation: rales Cardio: Rate: regular rate Rhythm: regular rhythm Heart sounds: Murmur heart sound present GI: Palpation (GI): Soft to palpation and nontender Skin: Other: pale Neuro: General: patient oriented x3 Cranial nerves: Yes CN's II-XII intact bilaterally, Yes Equal, round and reactive pupils present and Yes Bilaterally intact EOM present Extrem: Other: Bilateral leg edema, improving Objective Data Active Medications Acetaminophen (Acetaminophen 325 Mg Tablet) 650 mg PO Q6H PRN PRN Reason: Pain, Mild (Pain Scale 1-3) Benzonatate (Benzonatate 100 Mg Capsule) 100 mg PO TID PRN PRN Reason: Cough Last Admin: 04/05/21 21:37 Dose: 100 mg Documented by: MELLISSA Dextrose (Dextrose 50 % 25 Gm/50 Ml Vial) 25 gm IVPUSH Q15M PRN; Protocol PRN Reason: per Hypoglycemia Standing Ord. Glucose (Glucose Gel 15 Gm Gel..Gram.) 15 gm PO Q15M PRN; Protocol PRN Reason: per Hypoglycemia Standing Ord. Furosemide 200 mg/ Sodium (Chloride) 100 mls @ 2.5 mls/hr IVCONT .Q24H [facility] Last Admin: 04/06/21 12:49 Dose: 5 mg/hr, 2.5 mls/hr Documented by: STEVEN Insulin Human Lispro (Insulin Lispro 100 Unit/Ml 3 Ml Vial) 0 unit SUBCUT QIDACHS [facility]; Protocol Last Admin: 04/06/21 12:35 Dose: Not Given Documented by: SUZY Non-Admin Reason: No Insulin Coverage Metoprolol Tartrate (Metoprolol Tartrate 12.5 Mg Halftab) 12.5 mg PO BID [facility]; Protocol Last Admin: 04/06/21 09:21 Dose: 12.5 mg Documented by: STEVEN Omeprazole (Omeprazole 20 Mg Capsule.Dr) 20 mg PO DAILY@0630 [facility] Last Admin: 04/06/21 05:14 Dose: 20 mg Documented by: MELLISSA Ondansetron HCl (Ondansetron Hcl 4 Mg/2 Ml Vial) 4 mg IVPUSH Q4H PRN PRN Reason: GI Upset Last Admin: 04/02/21 22:02 Dose: 4 mg Documented by: KAREN Ondansetron HCl (Ondansetron Hcl 4 Mg/2 Ml Vial) 4 mg IVPUSH ONCE PRN PRN Reason: Nausea and Vomiting Last Admin: 03/28/21 22:59 Dose: 4 mg Documented by: WILL Pharmacy Consult (Consult Rx Perform Med Rec) 1 each MISCELLANE ONCE PRN PRN Reason: Consult order Polyethylene Glycol (Polyethylene Glycol 3350 17 Gm Powd.Pack) 17 gm PO DAILY [facility] Last Admin: 04/06/21 09:21 Dose: 17 gm Documented by: STEVEN Pramoxine HCl (Pramoxine Hcl 1 % Rectal Foam 15 Gm) 1 appl [place] BID [facility] Last Admin: 04/06/21 09:23 Dose: 1 appl Documented by: STEVEN Sodium Chloride (0.9 % Sodium Chloride Flush 3 Ml Syringe) 3 ml IVFLUSH QSHIFT [facility] Last Admin: 04/06/21 09:23 Dose: Not Given Documented by: STEEVN Non-Admin Reason: IV Running Vitamin D (Cholecalciferol (Vitamin D3) 25 Mcg Tablet) 25 mcg PO DAILY [facility] Last Admin: 04/06/21 09:22 Dose: 25 mcg Documented by: STEVEN Labs CBC & Chem 7: 04/06/21 06:05 04/06/21 06:05 Labs: Laboratory Results - last 24 hr 04/05/21 04/05/21 04/06/21 16:07 20:02 06:05 MCV 100.7 H MCH 33.8 H MCHC 33.6 RDW 17.4 H Plt Count 102 L MPV 10.2 Absolute Nucleated RBC 0.000 Nucleated RBC % (auto) 0.0 Anion Gap Estim Creat Clear Calc Estimated GFR POC Glucose 207 H 180 H Random Glucose Calcium 04/06/21 04/06/21 04/06/21 06:05 07:31 11:16 MCV MCH MCHC RDW Plt Count MPV Absolute Nucleated RBC Nucleated RBC % (auto) Anion Gap 12 Estim Creat Clear Calc 30.3 Estimated GFR 32 POC Glucose 137 H 148 H Random Glucose 145 H Calcium 7.4 L Assessment and Plan (1) Prolonged Q-T interval on ECG: Status: Acute Assessment and Plan: 81 yo M who initially presented on 03/26 with complaints of lower GI bleed. His course has been complicated by multiple issues. Acute on Chronic HFpEF suspected secondary to multiple PRBCs with baseline of chronic HF + A. fib still with evidence of fluid overload continue lasix gtt at 5mg/hr i/o, daily labs cardiology following HypoNa suspected hypervoluemic improving with diuresis monitor prolonged qt amiodorone on hold Avoid QT prolonging medication Acute blood loss anemia due to GI bleed -- see GI notes for full details s/p EGD (mild GAVE, varices + cadidiasis (no biposy seen -- will d/w GI) + Colonoscopy (which showed active bleeding from radiation proc. site) h/h stable >48 hours now with no clinical evidence of blood loss proctofoam BID x 4 weeks per GI CKD4 renal function improving with diuretics, monitor daily Nephrology input appreciated A. Fib continue metoprolol not on OAC currently due to Gi bleed. will discuss with GI regarding resuming anticoagulation. As an alternative may need Watchman in the future Hepatitis chronic, cause unclear possibly r/t amiodorone, on hold per cardiology rec will repeat LFTs follows with GI -- will need OP f/u Full Code DVT pptx, Mechanical due to GI bleed. Attending-Dr. Gutierrez Quality Stroke Does the patient have a stroke diagnosis?: No VTE Prior VTE?: No VTE Risk Level:: Medical - moderate - high VTE Device Contraindication: N/A - Device Ordered VTE Drug Contraindication: Treatment Not Indicated
[2021-04-06 13:50] LABS: Alanine Aminotransferase 39 U/L (0-40); Albumin Level 2.2 g/dL (3.5-5.0); Alkaline Phosphatase 182 U/L (39-117); Aspartate Amino Transferase 82 U/L (5-37); Bilirubin Direct 2.6 mg/dL (0.0-0.5); Bilirubin Total 4.2 mg/dL (0.0-1.0); Total Protein 5.4 g/dL (6.5-8.0)
[2021-04-06 16:18] LABS: Glucose, Whole Blood 162 mg/dL (60-115)
[2021-04-06] MEDS: Insulin Lispro 100 UNIT/ML 3 ML VIAL SUBCUT ×2 (16:45→22:19)
[2021-04-06 20:19] LABS: Glucose, Whole Blood 180 mg/dL (60-115)
[2021-04-07] VITALS (9 sets, daily range): BP systolic 96–118; BP diastolic 40–58; PULSE 66–80; RESP 18–20; TEMP 36.1–36.9; O2SAT 93–98
[2021-04-07] MEDS: Omeprazole 20 MG CAPSULE.DR PO (05:31)
[2021-04-07 07:38] LABS: Glucose, Whole Blood 147 mg/dL (60-115)
[2021-04-07 09:21] LABS: Hematocrit 32.1 % (42-52); Hemoglobin 10.6 g/dl (14.0-18.0); Mean Corpuscular Volume 102.9 fL (80-98); Mean Platelet Volume 10.3 fL (9.4-12.4); Platelet Count 130 X10*3/uL (160-400); Red Blood Count 3.12 X10*6/uL (4.60-5.80); Red Cell Distribution Width 17.8 % (11.0-16.0); White Blood Count 7.2 X10*3/uL (4.8-10.8)
[2021-04-07 09:33] LABS: B Type Natriuretic Peptide 1882 pg/mL (<100)
[2021-04-07 09:37] LABS: Anion Gap 16 (12-20); Blood Urea Nitrogen 41 mg/dL (9-16); Calcium 7.6 mg/dL (8.4-10.2); Carbon Dioxide 22 mmol/L (22-29); Chloride 101 mmol/L (96-108); Creatinine Clr Calc Pharmacy 31.1; Estimated Glomerular Filt Rate 33; Glucose Random 141 mg/dL (60-115); Potassium 3.5 mmol/L (3.3-5.1); Sodium 135 mmol/L (135-145)
--- NOTE | 2021-04-07 10:32 | PM.PNNEP ---
Subjective Subjective Date of Service: 04/07/21 Principal diagnosis: CHF, PAF, GIB, anemia Interval history: Seen and examined this morning Follow-up for GI bleed, CHF No further GI bleeding. Continues with IV Lasix drip. No chest pain. Was not out of bed yesterday, no shortness of breath at rest Feels much better Physical Exam Vital Signs: Vital Signs: Last Vital Signs Temp 97.7 F 04/07/21 08:00 Pulse 68 04/07/21 08:00 Resp 19 04/07/21 08:00 BP 113/55 L 04/07/21 08:00 Pulse Ox 95 04/07/21 08:00 Body Mass Index 28.3 Const: General: comfortable Neck: Neck: Yes supple and Yes no JVD Cardio: Jugular venous distension: no JVD Palpation: no palpable S3 Heart sounds: no rubs GI: Inspection: Yes normal to inspection Palpation (GI): Soft to palpation Auscultation: normal bowel sounds Neuro: Motor exam (neuro): No Asterixis during motor activity present Objective Data Labs CBC & Chem 7: 04/07/21 07:57 04/07/21 07:57 Labs: Laboratory Results - last 24 hr 04/06/21 04/06/21 04/06/21 06:05 11:16 16:13 WBC RBC Hgb Hct MCV MCH MCHC RDW Plt Count MPV Absolute Nucleated RBC Nucleated RBC % (auto) Sodium Potassium Chloride Carbon Dioxide Anion Gap BUN Creatinine Estim Creat Clear Calc Estimated GFR POC Glucose 148 H 162 H Random Glucose Calcium Total Bilirubin 4.2 H Direct Bilirubin 2.6 H AST 82 H ALT 39 Alkaline Phosphatase 182 H B-Natriuretic Peptide Total Protein 5.4 L Albumin 2.2 L 04/06/21 04/07/21 04/07/21 20:15 07:14 07:57 WBC 7.2 RBC 3.12 L Hgb 10.6 L Hct 32.1 L MCV 102.9 H MCH 34.0 H MCHC 33.0 RDW 17.8 H Plt Count 130 L D MPV 10.3 Absolute Nucleated RBC 0.000 Nucleated RBC % (auto) 0.0 Sodium Potassium Chloride Carbon Dioxide Anion Gap BUN Creatinine Estim Creat Clear Calc Estimated GFR POC Glucose 180 H 147 H Random Glucose Calcium Total Bilirubin Direct Bilirubin AST ALT Alkaline Phosphatase B-Natriuretic Peptide Total Protein Albumin 04/07/21 04/07/21 07:57 07:57 WBC RBC Hgb Hct MCV MCH MCHC RDW Plt Count MPV Absolute Nucleated RBC Nucleated RBC % (auto) Sodium 135 Potassium 3.5 Chloride 101 Carbon Dioxide 22 Anion Gap 16 BUN 41 H Creatinine 1.97 H Estim Creat Clear Calc 31.1 Estimated GFR 33 POC Glucose Random Glucose 141 H Calcium 7.6 L Total Bilirubin Direct Bilirubin AST ALT Alkaline Phosphatase B-Natriuretic Peptide 1882 H Total Protein Albumin Procedures Date of Service Date of Service: 04/07/21 Assessment & Plan Assessment and plan (1) Hyponatremia: Status: Acute Assessment and Plan: Hypervolemic hyponatremia Na is improving Keep Lasix and O > I Can switch to intermitent LASIX Restrict PO Water intake (2) Chronic kidney disease (CKD) stage G4/A1, severely decreased glomerular filtration rate (GFR) between 15-29 mL/min/1.73 square meter and albuminuria creatinine ratio less than 30 mg/g: Status: Acute Assessment and Plan: Renal function is better No indication for dialysis Time Spent With Patient Time with patient: 15 - 24 minutes Progress Note: Quality Stroke Does the patient have a stroke diagnosis?: No
[2021-04-07] MEDS: Metoprolol Tartrate 12.5 MG HALFTAB PO (10:48)
[2021-04-07] MEDS: Cholecalciferol (Vitamin D3) 25 MCG TABLET PO (10:49)
[2021-04-07] MEDS: polyethylene glycoL 3350 17 GM POWD.PACK PO (10:49)
[2021-04-07 11:47] LABS: Glucose, Whole Blood 146 mg/dL (60-115)
[2021-04-07] MEDS: Furosemide 200 MG in 0.9 % Sodium Chloride 80 ML IVCONT (13:21)
--- NOTE | 2021-04-07 13:35 | P.PNCA_ITS ---
Subjective Subjective Date of Service: 04/07/21 Principal diagnosis: CHF, PAF, GIB, anemia Interval history: Patient continues to remain short of breath. His output has been very difficult to measure. He is incontinent. His BNP has not but periods his creatinine is stable. Still remains short of breath and has crackles and leg edema. Review of Systems Constitutional: Reports no additional constitutional complaints Cardiovascular: Denies chest pain, Reports leg edema, Denies palpitations and Reports dyspnea Respiratory: Reports no additional respiratory complaints and Reports dyspnea Gastrointestinal: Reports no additional gastrointestinal complaints Musculoskeletal: Reports no additional musculoskeletal complaints Skin/Breast: Reports system reviewed and no additional complaints, except as docu Reports system reviewed and no additional complaints, except as documented Endocrine: Denies palpitations Physical Exam Vital Signs: Last Vital Signs Temp 97.3 F 04/07/21 11:24 Pulse 68 04/07/21 11:24 Resp 20 04/07/21 11:24 BP 118/47 L 04/07/21 11:24 Pulse Ox 97 04/07/21 11:24 Body Mass Index 28.3 Const General: cooperative, comfortable and tired appearing Nutritional Appearance: overweight Orientation/consciousness: patient oriented x3 Neck Neck: Yes trachea midline, Yes supple and Yes JVD Resp Effort & Inspection: normal respiratory effort Auscultation: rales bilateral Cardio Jugular venous distension: JVD Rate: regular rate Rhythm: regular rhythm Heart sounds: S1 normal heart sound present, S2 normal heart sound present, no click, no gallops and Murmur heart sound present systolic mid, decrescendo and crescendo Neuro General: patient oriented x3 Extrem General: No clubbing, No cyanosis and Yes edema Results Labs and Meds Result diagrams: 04/07/21 07:57 04/07/21 07:57 Lab results: Laboratory Results - last 24 hr 04/06/21 04/06/21 04/06/21 06:05 16:13 20:15 WBC RBC Hgb Hct MCV MCH MCHC RDW Plt Count MPV Absolute Nucleated RBC Nucleated RBC % (auto) Sodium Potassium Chloride Carbon Dioxide Anion Gap BUN Creatinine Estim Creat Clear Calc Estimated GFR POC Glucose 162 H 180 H Random Glucose Calcium Total Bilirubin 4.2 H Direct Bilirubin 2.6 H AST 82 H ALT 39 Alkaline Phosphatase 182 H B-Natriuretic Peptide Total Protein 5.4 L Albumin 2.2 L 04/07/21 04/07/2104/07/21 07:14 07:57 07:57 WBC 7.2 RBC 3.12 L Hgb 10.6 L Hct 32.1 L MCV 102.9 H MCH 34.0 H MCHC 33.0 RDW 17.8 H Plt Count 130 L D MPV 10.3 Absolute Nucleated RBC 0.000 Nucleated RBC % (auto) 0.0 Sodium 135 Potassium 3.5 Chloride 101 Carbon Dioxide 22 Anion Gap 16 BUN 41 H Creatinine 1.97 H Estim Creat Clear Calc 31.1 Estimated GFR 33 POC Glucose 147 H Random Glucose 141 H Calcium 7.6 L Total Bilirubin Direct Bilirubin AST ALT Alkaline Phosphatase B-Natriuretic Peptide Total Protein Albumin 04/07/21 04/07/21 07:57 11:08 WBC RBC Hgb Hct MCV MCH MCHC RDW Plt Count MPV Absolute Nucleated RBC Nucleated RBC % (auto) Sodium Potassium Chloride Carbon Dioxide Anion Gap BUN Creatinine Estim Creat Clear Calc Estimated GFR POC Glucose 146 H Random Glucose Calcium Total Bilirubin Direct Bilirubin AST ALT Alkaline Phosphatase B-Natriuretic Peptide 1882 H Total Protein Albumin Progress Note: A&P Assessment and plan (1) Acute congestive heart failure: Status: Acute Assessment and Plan: Patient with persistent leg edema and crackles with poor response to 5 mg of Lasix with BNP not improving. Creatinine is stable. Will maximize Lasix to 10 mg an hour. Better output needs to be monitored. Strict intake and output ch art. Continue to trend BMP. Blood pressure is well optimized. Continue low- dose metoprolol therapy. Prognosis overall guarded. (2) Atrial fibrillation: Status: Acute Assessment and Plan: Atrial fibrillation which has remained suppressed despite being of amiodarone therapy. Will continue to maintain rhythm control as much as possible. Aggressive management of heart failure as above. Continue metoprolol therapy. Off oral anticoagulation due to GI bleeding and severe anemia. Discussed with GI about resumption of oral anticoagulation therapy. Will follow with the patient Fall Risk Details Current Medications: Current Medications Acetaminophen (Acetaminophen 325 Mg Tablet) 650 mg PO Q6H PRN PRN Reason: Pain, Mild (Pain Scale 1-3) Benzonatate (Benzonatate 100 Mg Capsule) 100 mg PO TID PRN PRN Reason: Cough Last Admin: 04/05/21 21:37 Dose: 100 mg Documented by: Dextrose (Dextrose 50 % 25 Gm/50 Ml Vial) 25 gm IVPUSH Q15M PRN; Protocol PRN Reason: per Hypoglycemia Standing Ord. Glucose (Glucose Gel 15 Gm Gel..Gram.) 15 gm PO Q15M PRN; Protocol PRN Reason: per Hypoglycemia Standing Ord. Furosemide 200 mg/ Sodium (Chloride) 100 mls @ 2.5 mls/hr IVCONT .Q24H [facility] Last Admin: 04/07/21 13:21 Dose: 5 mg/hr, 2.5 mls/hr Documented by: Insulin Human Lispro (Insulin Lispro 100 Unit/Ml 3 Ml Vial) 0 unit SUBCUT QIDACHS [facility]; Protocol Last Admin: 04/07/21 12:10 Dose: Not Given Documented by: Metoprolol Tartrate (Metoprolol Tartrate 12.5 Mg Halftab) 12.5 mg PO BID [facility]; Protocol Last Admin: 04/07/21 10:48 Dose: 12.5 mg Documented by: Omeprazole (Omeprazole 20 Mg Capsule.Dr) 20 mg PO DAILY@0630 [facility] Last Admin: 04/07/21 05:31 Dose: 20 mg Documented by: Ondansetron HCl (Ondansetron Hcl 4 Mg/2 Ml Vial) 4 mg IVPUSH Q4H PRN PRN Reason: GI Upset Last Admin: 04/02/21 22:02 Dose: 4 mg Documented by: Ondansetron HCl (Ondansetron Hcl 4 Mg/2 Ml Vial) 4 mg IVPUSH ONCE PRN PRN Reason: Nausea and Vomiting Last Admin: 03/28/21 22:59 Dose: 4 mg Documented by: Pharmacy Consult (Consult Rx Perform Med Rec) 1 each MISCELLANE ONCE PRN PRN Reason: Consult order Polyethylene Glycol (Polyethylene Glycol 3350 17 Gm Powd.Pack) 17 gm PO DAILY [facility] Last Admin: 04/07/21 10:49 Dose: 17 gm Documented by: Pramoxine HCl (Pramoxine Hcl 1 % Rectal Foam 15 Gm) 1 appl [place] BID [facility] Last Admin: 04/06/21 22:20 Dose: 1 appl Documented by: Sodium Chloride (0.9 % Sodium Chloride Flush 3 Ml Syringe) 3 ml IVFLUSH QSHIFT [facility] Last Admin: 04/07/21 10:49 Dose: Not Given Documented by: Vitamin D (Cholecalciferol (Vitamin D3) 25 Mcg Tablet) 25 mcg PO DAILY [facility] Last Admin: 04/07/21 10:49 Dose: 25 mcg Documented by: Time Spent With Patient Time: Total time spent is greater than 50% in coordination of care (as documented) at patient's floor/unit and/or counseling patient: Time with patient: 15 - 24 minutes Progress Note: Quality Stroke Does the patient have a stroke diagnosis?: No Procedures Date of Service Date of Service: 04/07/21
--- NOTE | 2021-04-07 14:04 | HO.PM.IMPN ---
Subjective Subjective Date of Service: 04/07/21 <TAZ Massey - Last Filed: 04/07/21 14:48> 04/07/21 <Daniel Pearce MD - Last Filed: 04/07/21 16:19> Interval History: Seen and examined this morning Follow-up for CHF, GI bleed Up and walking around yesterday, reports feeling good No further bleeding No shortness of breath <TAZ Massey - Last Filed: 04/07/21 14:48> Review of Systems Review of Systems: Yes all other systems are reviewed and are negative <TAZ Massey - Last Filed: 04/07/21 14:48> Constitutional Constitutional: Denies chills and Denies fever(s) <TAZ Massey - Last Filed: 04/07/21 14:48> Cardiovascular Cardiovascular: Denies chest pain <TAZ Massey - Last Filed: 04/07/21 14:48> Respiratory Respiratory: Denies cough <TAZ Massey - Last Filed: 04/07/21 14:48> Gastrointestinal Gastrointestinal: Denies abdominal pain <TAZ Massey - Last Filed: 04/07/21 14:48> Physical Exam Vital Signs: Vital Signs: Last Vital Signs Temp 97.3 F 04/07/21 11:24 Pulse 68 04/07/21 11:24 Resp 20 04/07/21 11:24 BP 118/47 L 04/07/21 11:24 Pulse Ox 97 04/07/21 11:24 Body Mass Index 28.3 <TAZ Massey - Last Filed: 04/07/21 14:48> Const: General: comfortable, alert, awake and ill appearing <TAZ Massey Last Filed: 04/07/21 14:48> Nutritional Appearance: well nourished <TAZ Massey Last Filed: 04/07/21 14:48> Orientation/consciousness: patient oriented x3 <TAZ Massey Last Filed: 04/07/21 14:48> HENMT: Head: Yes normocephalic and Yes atraumatic <TAZ Massey - Last Filed: 04/07/21 14:48> Eyes: Sclerae: sclerae normal <TAZ Massey - Last Filed: 04/07/21 14:48> Pupils: Equal, round and reactive pupils present <TAZ Massey - Last Filed: 04/07/21 14:48> Chest: Chest palpation & inspection: normal inspection of the chest <TAZ Massey Last Filed: 04/07/21 14:48> Resp: Effort & Inspection: normal respiratory effort and no respiratory distress <TAZ Massey - Last Filed: 04/07/21 14:48> Auscultation: rales <TAZ Massey - Last Filed: 04/07/21 14:48> Cardio: Jugular venous distension: JVD <TAZ Massey Last Filed: 04/07/21 14:48> Rate: regular rate <TAZ Massey Last Filed: 04/07/21 14:48> Rhythm: regular rhythm <TAZ Massey Last Filed: 04/07/21 14:48> Heart sounds: Murmur heart sound present <TAZ Massey Last Filed: 04/07/21 14:48> GI: Palpation (GI): Soft to palpation and nontender <TAZ aMssey Last Filed: 04/07/21 14:48> Skin: Other: pale <TAZ Massey Last Filed: 04/07/21 14:48> Neuro: General: patient oriented x3 <TAZ Massey Last Filed: 04/07/21 14:48> Cranial nerves: Yes CN's II-XII intact bilaterally, Yes Equal, round and reactive pupils present and Yes Bilaterally intact EOM present <TAZ Massye - Last Filed: 04/07/21 14:48> Extrem: Other: Bilateral leg edema, improving <TAZ Massey - Last Filed: 04/07/21 14:48> Objective Data Active Medications Acetaminophen (Acetaminophen 325 Mg Tablet) 650 mg PO Q6H PRN PRN Reason: Pain, Mild (Pain Scale 1-3) Benzonatate (Benzonatate 100 Mg Capsule) 100 mg PO TID PRN PRN Reason: Cough Last Admin: 04/05/21 21:37 Dose: 100 mg Documented by: MELLISSA Dextrose (Dextrose 50 % 25 Gm/50 Ml Vial) 25 gm IVPUSH Q15M PRN; Protocol PRN Reason: per Hypoglycemia Standing Ord. Glucose (Glucose Gel 15 Gm Gel..Gram.) 15 gm PO Q15M PRN; Protocol PRN Reason: per Hypoglycemia Standing Ord. Furosemide 200 mg/ Sodium (Chloride) 100 mls @ 5 mls/hr IVCONT .Q20H [facility] Last Infusion: 04/07/21 13:47 Dose: 10 mg/hr, 5 mls/hr Documented by: PHILIP Insulin Human Lispro (Insulin Lispro 100 Unit/Ml 3 Ml Vial) 0 unit SUBCUT QIDACHS [facility]; Protocol Last Admin: 04/07/21 12:10 Dose: Not Given Documented by: PHILIP Non-Admin Reason: No Insulin Coverage Metoprolol Tartrate (Metoprolol Tartrate 12.5 Mg Halftab) 12.5 mg PO BID [facility]; Protocol Last Admin: 04/07/21 10:48 Dose: 12.5 mg Documented by: KIRSTEN Omeprazole (Omeprazole 20 Mg Capsule.Dr) 20 mg PO DAILY@0630 [facility] Last Admin: 04/07/21 05:31 Dose: 20 mg Documented by: MARILIN Ondansetron HCl (Ondansetron Hcl 4 Mg/2 Ml Vial) 4 mg IVPUSH Q4H PRN PRN Reason: GI Upset Last Admin: 04/02/21 22:02 Dose: 4 mg Documented by: KAREN Ondansetron HCl (Ondansetron Hcl 4 Mg/2 Ml Vial) 4 mg IVPUSH ONCE PRN PRN Reason: Nausea and Vomiting Last Admin: 03/28/21 22:59 Dose: 4 mg Documented by: WILL Pharmacy Consult (Consult Rx Perform Med Rec) 1 each MISCELLANE ONCE PRN PRN Reason: Consult order Polyethylene Glycol (Polyethylene Glycol 3350 17 Gm Powd.Pack) 17 gm PO DAILY [facility] Last Admin: 04/07/21 10:49 Dose: 17 gm Documented by: KIRSTEN Pramoxine HCl (Pramoxine Hcl 1 % Rectal Foam 15 Gm) 1 appl MA BID [facility] Last Admin: 04/06/21 22:20 Dose: 1 appl Documented by: MARILIN Sodium Chloride (0.9 % Sodium Chloride Flush 3 Ml Syringe) 3 ml IVFLUSH QSHIFT [facility] Last Admin: 04/07/21 10:49 Dose: Not Given Documented by: KIRSTEN Non-Admin Reason: IV Running Vitamin D (Cholecalciferol (Vitamin D3) 25 Mcg Tablet) 25 mcg PO DAILY [facility] Last Admin: 04/07/21 10:49 Dose: 25 mcg Documented by: KIRSTEN <TAZ Massey - Last Filed: 04/07/21 14:48> Labs CBC & Chem 7: : 04/07/21 07:57 04/07/21 07:57 <TAZ Massey - Last Filed: 04/07/21 14:48> Labs: Laboratory Results - last 24 hr 04/06/21 04/06/21 04/07/21 16:13 20:15 07:14 MCV MCH MCHC RDW Plt Count MPV Absolute Nucleated RBC Nucleated RBC % (auto) Anion Gap Estim Creat Clear Calc Estimated GFR POC Glucose 162 H 180 H 147 H Random Glucose Calcium B-Natriuretic Peptide 04/07/21 04/07/21 04/07/21 07:57 07:57 07:57 MCV 102.9 H MCH 34.0 H MCHC 33.0 RDW 17.8 H Plt Count 130 L D MPV 10.3 Absolute Nucleated RBC 0.000 Nucleated RBC % (auto) 0.0 Anion Gap 16 Estim Creat Clear Calc 31.1 Estimated GFR 33 POC Glucose Random Glucose 141 H Calcium 7.6 L B-Natriuretic Peptide 1882 H 04/07/21 11:08 MCV MCH MCHC RDW Plt Count MPV Absolute Nucleated RBC Nucleated RBC % (auto) Anion Gap Estim Creat Clear Calc Estimated GFR POC Glucose 146 H Random Glucose Calcium B-Natriuretic Peptide <TAZ Massey - Last Filed: 04/07/21 14:48> Assessment and Plan (1) Acute congestive heart failure: Status: Acute <TAZ Massey - Last Filed: 04/07/21 14:48> (2) Anemia: Status: Acute <TAZ Massey - Last Filed: 04/07/21 14:48> Assessment and Plan: 81 yo M who initially presented on 03/26 with complaints of lower GI bleed. His course has been complicated by multiple issues. Acute on Chronic HFpEF suspected secondary to multiple PRBCs with baseline of chronic HF + A. 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 Fib continue metoprolol not on OAC currently due to Gi bleed. ok to resume per GI but risk of bleeding. Patient does not want to resume AC at this time. May need eval for Watchman in the future CKD4 renal function improving with diuretics, monitor daily Nephrology input appreciated HypoNa resolved monitor Hepatitis chronic, cause unclear possibly r/t amiodorone, on hold per cardiology rec will repeat LFTs follows with GI -- will need OP f/u Thrombocytopenia Improving Follow CBC Full Code DVT pptx, Mechanical due to GI bleed. Attending-Dr. Pearce <TAZ Massey - Last Filed: 04/07/21 14:48> Quality Stroke Does the patient have a stroke diagnosis?: No <TAZ Massey - Last Filed: 04/07/21 14:48> VTE Prior VTE?: No <TAZ Massey - Last Filed: 04/07/21 14:48> VTE Risk Level:: Medical - moderate - high <TAZ Massey Last Filed: 04/07/21 14:48> VTE Device Contraindication: N/A - Device Ordered <TAZ Massey Last Filed: 04/07/21 14:48> VTE Drug Contraindication: Treatment Not Indicated <TAZ Massey - Last Filed: 04/07/21 14:48>
[2021-04-07 15:54] LABS: Glucose, Whole Blood 209 mg/dL (60-115)
[2021-04-07] MEDS: Pramoxine HCl 1 % Rectal Foam 15 GM 1 APPL PR ×2 (17:49→22:01)
[2021-04-07 21:14] LABS: Glucose, Whole Blood 192 mg/dL (60-115)
[2021-04-07] MEDS: Insulin Lispro 100 UNIT/ML 3 ML VIAL SUBCUT (22:00)
[2021-04-07] MEDS: 0.9 % Sodium Chloride Flush 3 ML SYRINGE IVFLUSH (22:02)
[2021-04-08] VITALS (9 sets, daily range): BP systolic 104–126; BP diastolic 44–67; PULSE 66–77; RESP 16–20; TEMP 36.2–37.2; O2SAT 93–97
[2021-04-08] MEDS: Omeprazole 20 MG CAPSULE.DR PO (05:33)
[2021-04-08 07:37] LABS: B Type Natriuretic Peptide 1579 pg/mL (<100)
[2021-04-08 07:46] LABS: Anion Gap 14 (12-20); Blood Urea Nitrogen 40 mg/dL (9-16); Calcium 7.7 mg/dL (8.4-10.2); Carbon Dioxide 23 mmol/L (22-29); Chloride 100 mmol/L (96-108); Estimated Glomerular Filt Rate 35; Glucose Random 142 mg/dL (60-115); Potassium 3.3 mmol/L (3.3-5.1); Sodium 134 mmol/L (135-145)
[2021-04-08 08:06] LABS: Glucose, Whole Blood 136 mg/dL (60-115)
[2021-04-08] MEDS: polyethylene glycoL 3350 17 GM POWD.PACK PO (09:44)
[2021-04-08] MEDS: Cholecalciferol (Vitamin D3) 25 MCG TABLET PO (09:44)
[2021-04-08] MEDS: Metoprolol Tartrate 12.5 MG HALFTAB PO ×2 (09:44→20:35)
[2021-04-08] MEDS: Pramoxine HCl 1 % Rectal Foam 15 GM 1 APPL PR ×2 (09:45→20:36)
[2021-04-08] MEDS: 0.9 % Sodium Chloride Flush 3 ML SYRINGE IVFLUSH ×3 (09:45→20:36)
--- NOTE | 2021-04-08 09:49 | PM.PNNEP ---
Subjective Subjective Date of Service: 04/08/21 Principal diagnosis: CHF, PAF, GIB, anemia Interval history: Events ntoed c/o abdominal discomfort Difficulty urinating Penile edema Bladder scan shows 400 cc Physical Exam Vital Signs: Vital Signs: Last Vital Signs Temp 97.2 F 04/08/21 07:14 Pulse 71 04/08/21 09:44 Resp 17 04/08/21 07:14 BP 111/54 L 04/08/21 09:44 Pulse Ox 96 04/08/21 07:14 Body Mass Index 28.3 Const: General: comfortable Neck: Neck: Yes supple and Yes no JVD Cardio: Jugular venous distension: no JVD Palpation: no palpable S3 Heart sounds: no rubs GI: Inspection: Yes normal to inspection and Yes distended Palpation (GI): Soft to palpation Auscultation: normal bowel sounds : Penis: edematous Neuro: Motor exam (neuro): No Asterixis during motor activity present Objective Data Labs CBC & Chem 7: 04/07/21 07:57 04/08/21 06:17 Labs: Laboratory Results - last 24 hr 04/07/21 04/07/21 04/07/21 11:08 15:47 19:46 Sodium Potassium Chloride Carbon Dioxide Anion Gap BUN Creatinine Estim Creat Clear Calc Estimated GFR POC Glucose 146 H 209 H 192 H Random Glucose Calcium B-Natriuretic Peptide 04/08/21 04/08/21 04/08/21 06:17 06:17 07:17 Sodium 134 L Potassium 3.3 Chloride 100 Carbon Dioxide 23 Anion Gap 14 BUN 40 H Creatinine 1.86 H Estim Creat Clear Calc 33.0 Estimated GFR 35 POC Glucose 136 H Random Glucose 142 H Calcium 7.7 L B-Natriuretic Peptide 1579 H Procedures Date of Service Date of Service: 04/08/21 Assessment & Plan Assessment and plan (1) Hyponatremia: Status: Acute Assessment and Plan: Hypervolemic hyponatremia Na is improving Keep Lasix and O > I IV LASIX Restrict PO Water intake Insert prado due to retention (2) Chronic kidney disease (CKD) stage G4/A1, severely decreased glomerular filtration rate (GFR) between 15-29 mL/min/1.73 square meter and albuminuria creatinine ratio less than 30 mg/g: Status: Acute Assessment and Plan: Renal function is better No indication for dialysis Time Spent With Patient Time: Total time spent is greater than 50% in coordination of care (as documented) at patient's floor/unit and/or counseling patient: Time with patient: 15 - 24 minutes Progress Note: Quality Stroke Does the patient have a stroke diagnosis?: No
[2021-04-08] MEDS: Furosemide 200 MG in 0.9 % Sodium Chloride 80 ML IVCONT (10:02)
[2021-04-08 11:16] LABS: Glucose, Whole Blood 166 mg/dL (60-115)
--- NOTE | 2021-04-08 12:10 | P.PNIM_ITS ---
Subjective Subjective Date of Service: 04/08/21 <TAZ Massey - Last Filed: 04/08/21 12:29> 04/08/21 <Daniel Pearce MD - Last Filed: 04/08/21 18:29> Interval History: Seen and examined this morning Follow-up for CHF, GI bleed This morning patient complains of scrotal and penile pain. Unable to urinate. States that his breathing is unchanged but appears more short of breath <TAZ Massey - Last Filed: 04/08/21 12:29> Review of Systems Review of Systems: Yes all other systems are reviewed and are negative <TAZ Massey - Last Filed: 04/08/21 12:29> Constitutional Constitutional: Denies chills and Denies fever(s) <TAZ Massey - Last Filed: 04/08/21 12:29> Cardiovascular Cardiovascular: Denies chest pain <TAZ Massey - Last Filed: 04/08/21 12:29> Respiratory Respiratory: Denies cough <TAZ Massey - Last Filed: 04/08/21 12:29> Gastrointestinal Gastrointestinal: Denies abdominal pain <TAZ Massey - Last Filed: 04/08/21 12:29> Physical Exam Vital Signs: Vital Signs: Last Vital Signs Temp 97.2 F 04/08/21 07:14 Pulse 71 04/08/21 09:44 Resp 17 04/08/21 07:14 BP 111/54 L 04/08/21 09:44 Pulse Ox 96 04/08/21 07:14 Body Mass Index 28.3 <TAZ Massey - Last Filed: 04/08/21 12:29> Const: General: comfortable, alert, awake and ill appearing <TAZ Massey Last Filed: 04/08/21 12:29> Nutritional Appearance: well nourished <TAZ Massey - Last Filed: 04/08/21 12:29> Orientation/consciousness: patient oriented x3 <TAZ Massey Last Filed: 04/08/21 12:29> HENMT: Head: Yes normocephalic and Yes atraumatic <TAZ Massey - Last Filed: 04/08/21 12:29> Eyes: Sclerae: sclerae normal <TAZ Massey - Last Filed: 03/15 01/01 12:29> Pupils: Equal, round and reactive pupils present <TAZ Massey - Last Filed: 04/08/21 12:29> Chest: Chest palpation & inspection: normal inspection of the chest <TAZ Massey - Last Filed: 04/08/21 12:29> Resp: Effort & Inspection: no cough and labored <TAZ Massey - Last Filed: 04/08/21 12:29> Auscultation: rales <TAZ Massey - Last Filed: 04/08/21 12:29> Cardio: Jugular venous distension: JVD <ATZ Massey - Last Filed: 04/08/21 12:29> Rate: regular rate <TAZ Massey - Last Filed: 04/08/21 12:29> Rhythm: regular rhythm <TAZ Massey - Last Filed: 04/08/21 12:29> Heart sounds: Murmur heart sound present <TAZ Massey - Last Filed: 04/08/21 12:29> GI: Palpation (GI): Soft to palpation and nontender <TAZ Massey - Last Filed: 04/08/21 12:29> Skin: Other: pale <TAZ Massey - Last Filed: 04/08/21 12:29> Neuro: General: patient oriented x3 <TAZ Massey - Last Filed: 04/08/21 12:29> Cranial nerves: Yes CN's II-XII intact bilaterally, Yes Equal, round and reactive pupils present and Yes Bilaterally intact EOM present <TAZ Massey - Last Filed: 04/08/21 12:29> Extrem: Other: Bilateral leg edema <TAZ Massey - Last Filed: 04/08/21 12:29> Objective Data Active Medications Acetaminophen (Acetaminophen 325 Mg Tablet) 650 mg PO Q6H PRN PRN Reason: Pain, Mild (Pain Scale 1-3) Benzonatate (Benzonatate 100 Mg Capsule) 100 mg PO TID PRN PRN Reason: Cough Last Admin: 04/05/21 21:37 Dose: 100 mg Documented by: MELLISSA Dextrose (Dextrose 50 % 25 Gm/50 Ml Vial) 25 gm IVPUSH Q15M PRN; Protocol PRN Reason: per Hypoglycemia Standing Ord. Glucose (Glucose Gel 15 Gm Gel..Gram.) 15 gm PO Q15M PRN; Protocol PRN Reason: per Hypoglycemia Standing Ord. Furosemide 200 mg/ Sodium (Chloride) 100 mls @ 5 mls/hr IVCONT .Q20H [facility] Last Admin: 04/08/21 10:02 Dose: 10 mg/hr, 5 mls/hr Documented by: PHILIP Insulin Human Lispro (Insulin Lispro 100 Unit/Ml 3 Ml Vial) 0 unit SUBCUT QIDACHS [facility]; Protocol Last Admin: 04/08/21 08:12 Dose: Not Given Documented by: PHILIP Non-Admin Reason: No Insulin Coverage Metoprolol Tartrate (Metoprolol Tartrate 12.5 Mg Halftab) 12.5 mg PO BID [facility]; Protocol Last Admin: 04/08/21 09:44 Dose: 12.5 mg Documented by: PHILIP Nystatin (Nystatin Powder 15 Gm Bottle) 1 appl TOPICAL BID [facility]; Protocol Omeprazole (Omeprazole 20 Mg Capsule.Dr) 20 mg PO DAILY@0630 [facility] Last Admin: 04/08/21 05:33 Dose: 20 mg Documented by: MARILIN Ondansetron HCl (Ondansetron Hcl 4 Mg/2 Ml Vial) 4 mg IVPUSH Q4H PRN PRN Reason: GI Upset Last Admin: 04/02/21 22:02 Dose: 4 mg Documented by: KAREN Ondansetron HCl (Ondansetron Hcl 4 Mg/2 Ml Vial) 4 mg IVPUSH ONCE PRN PRN Reason: Nausea and Vomiting Last Admin: 03/28/21 22:59 Dose: 4 mg Documented by: WILL Pharmacy Consult (Consult Rx Perform Med Rec) 1 each MISCELLANE ONCE PRN PRN Reason: Consult order Polyethylene Glycol (Polyethylene Glycol 3350 17 Gm Powd.Pack) 17 gm PO DAILY [facility] Last Admin: 04/08/21 09:44 Dose: 17 gm Documented by: PHILIP Pramoxine HCl (Pramoxine Hcl 1 % Rectal Foam 15 Gm) 1 appl MO BID [facility] Last Admin: 04/08/21 09:45 Dose: 1 appl Documented by: PHILIP Sodium Chloride (0.9 % Sodium Chloride Flush 3 Ml Syringe) 3 ml IVFLUSH QSHIFT [facility] Last Admin: 04/08/21 09:45 Dose: 3 ml Documented by: PHILIP Vitamin D (Cholecalciferol (Vitamin D3) 25 Mcg Tablet) 25 mcg PO DAILY [facility] Last Admin: 04/08/21 09:44 Dose: 25 mcg Documented by: PHILIP <TAZ Massey - Last Filed: 04/08/21 12:29> Labs CBC & Chem 7: : 04/07/21 07:57 04/08/21 06:17 <TAZ Massey - Last Filed: 04/08/21 12:29> Labs: Laboratory Results - last 24 hr 04/07/21 04/07/21 04/08/21 15:47 19:46 06:17 Anion Gap 14 Estim Creat Clear Calc 33.0 Estimated GFR 35 POC Glucose 209 H 192 H Random Glucose 142 H Calcium 7.7 L B-Natriuretic Peptide 04/08/21 04/08/21 04/08/21 06:17 07:17 10:58 Anion Gap Estim Creat Clear Calc Estimated GFR POC Glucose 136 H 166 H Random Glucose Calcium B-Natriuretic Peptide 1579 H <TAZ Massey - Last Filed: 04/08/21 12:29> Assessment and Plan (1) Urinary retention: Status: Acute <TAZ Massey - Last Filed: 04/08/21 12:29> Assessment and Plan: 81 yo M who initially presented on 03/26 with complaints of lower GI bleed. His course has been complicated by multiple issues. Acute on Chronic HFpEF suspected secondary to multiple PRBCs with baseline of chronic HF + A. 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 Fib continue metoprolol not on OAC currently due to Gi bleed. ok to resume per GI but risk of bleeding. Patient does not want to resume AC at this time. May need eval for Watchman in t he future CKD4 renal function improving with diuretics, monitor daily Nephrology input appreciated HypoNa resolved monitor Hepatitis chronic, cause unclear possibly r/t amiodorone, on hold per cardiology rec LFTs trending up and down since admission. Component of hepatic congestion likely follows with GI -- will need OP f/u Thrombocytopenia Improving Follow CBC Full Code DVT pptx, Mechanical due to GI bleed. Attending-Dr. Pearce <TAZ Massey - Last Filed: 04/08/21 12:29> Quality Stroke Does the patient have a stroke diagnosis?: No <TAZ Massey - Last Filed: 04/08/21 12:29> VTE Prior VTE?: No <TAZ Massey - Last Filed: 04/08/21 12:29> VTE Risk Level:: Medical - moderate - high <TAZ Massey - Last Filed: 04/08/21 12:29> VTE Device Contraindication: N/A - Device Ordered <TAZ Massey - Last Filed: 04/08/21 12:29> VTE Drug Contraindication: Treatment Not Indicated <TAZ Massey - Last Filed: 04/08/21 12:29>
--- NOTE | 2021-04-08 12:14 | PM.PNCARD ---
Subjective Subjective Date of Service: 04/08/21 Principal diagnosis: CHF, PAF, GIB, anemia Interval history: Patient continues to remain short of breath, however has diuresed better with higher dose of Lasix. BNP is finally somewhat down trending. Still having lot of difficulty monitoring his eyes and nose. He had urinary retention this morning is not feeling well because of that. No chest pain or palpitations. Overnight remains in sinus rhythm. Review of Systems Constitutional: Reports no additional constitutional complaints Cardiovascular: Denies chest pain, Denies lightheadedness, Denies palpitations and Reports dyspnea Respiratory: Reports dyspnea Gastrointestinal: Reports no additional gastrointestinal complaints Genitourinary: Reports difficulty urinating Musculoskeletal: Reports no additional musculoskeletal complaints Reports system reviewed and no additional complaints, except as documented Psychiatric: Reports no additional psychiatric complaints Endocrine: Reports no additional endocrine complaints and Denies palpitations Physical Exam Vital Signs: Last Vital Signs Temp 97.2 F 04/08/21 07:14 Pulse 71 04/08/21 09:44 Resp 17 04/08/21 07:14 BP 111/54 L 04/08/21 09:44 Pulse Ox 96 04/08/21 07:14 Body Mass Index 28.3 Const General: cooperative, comfortable, alert, awake and tired appearing Orientation/consciousness: patient oriented x3 Neck Neck: Yes trachea midline, Yes supple and Yes JVD Resp Effort & Inspection: normal respiratory effort Auscultation: crackles bilateral at the base Cardio Jugular venous distension: JVD Palpation: normal PMI Rate: regular rate Rhythm: regular rhythm Heart sounds: S1 normal heart sound present, S2 normal heart sound present and Murmur heart sound present systolic mid, decrescendo and crescendo GI Auscultation: normal bowel sounds Skin General skin exam: no rashes or lesions noted Neuro General: patient oriented x3 and no focal motor deficits Extrem General: No clubbing, No cyanosis and Yes edema Results Labs and Meds Result diagrams: 04/07/21 07:57 04/08/21 06:17 Lab results: Laboratory Results - last 24 hr 04/07/21 04/07/21 04/08/21 15:47 19:46 06:17 Sodium 134 L Potassium 3.3 Chloride 100 Carbon Dioxide 23 Anion Gap 14 BUN 40 H Creatinine 1.86 H Estim Creat Clear Calc 33.0 Estimated GFR 35 POC Glucose 209 H 192 H Random Glucose 142 H Calcium 7.7 L B-Natriuretic Peptide 04/08/21 04/08/21 04/08/21 06:17 07:17 10:58 Sodium Potassium Chloride Carbon Dioxide Anion Gap BUN Creatinine Estim Creat Clear Calc Estimated GFR POC Glucose 136 H 166 H Random Glucose Calcium B-Natriuretic Peptide 1579 H Progress Note: A&P Assessment and plan (1) Acute congestive heart failure: Status: Acute Assessment and Plan: Congestive heart failure, resistant to IV diuretic therapy. Has responded better to higher dose of Lasix. BNP is down trending, however remains fluid overloaded. Give a dose of metolazone today. Continue strict intake and output chart which has been difficult in his case. Continue to trend BMP and BNP. Will follow with you tomorrow. Continue low-dose metoprolol therapy and rhythm management. Replace electrolytes. (2) Atrial fibrillation: Status: Acute Assessment and Plan: Atrial fibrillation has remained in sinus rhythm. Off amiodarone therapy. Continue metoprolol therapy. Off oral anticoagulation due to significant GI bleed and anemia. 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 Will follow with you juan Fall Risk Details Current Medications: Current Medications Acetaminophen (Acetaminophen 325 Mg Tablet) 650 mg PO Q6H PRN PRN Reason: Pain, Mild (Pain Scale 1-3) Benzonatate (Benzonatate 100 Mg Capsule) 100 mg PO TID PRN PRN Reason: Cough Last Admin: 04/05/21 21:37 Dose: 100 mg Documented by: Dextrose (Dextrose 50 % 25 Gm/50 Ml Vial) 25 gm IVPUSH Q15M PRN; Protocol PRN Reason: per Hypoglycemia Standing Ord. Glucose (Glucose Gel 15 Gm Gel..Gram.) 15 gm PO Q15M PRN; Protocol PRN Reason: per Hypoglycemia Standing Ord. Furosemide 200 mg/ Sodium (Chloride) 100 mls @ 5 mls/hr IVCONT .Q20H [facility] Last Admin: 04/08/21 10:02 Dose: 10 mg/hr, 5 mls/hr Documented by: Insulin Human Lispro (Insulin Lispro 100 Unit/Ml 3 Ml Vial) 0 unit SUBCUT QIDACHS [facility]; Protocol Last Admin: 04/08/21 08:12 Dose: Not Given Documented by: Metoprolol Tartrate (Metoprolol Tartrate 12.5 Mg Halftab) 12.5 mg PO BID [facility]; Protocol Last Admin: 04/08/21 09:44 Dose: 12.5 mg Documented by: Nystatin (Nystatin Powder 15 Gm Bottle) 1 appl TOPICAL BID [facility]; Protocol Omeprazole (Omeprazole 20 Mg Capsule.Dr) 20 mg PO DAILY@0630 [facility] Last Admin: 04/08/21 05:33 Dose: 20 mg Documented by: Ondansetron HCl (Ondansetron Hcl 4 Mg/2 Ml Vial) 4 mg IVPUSH Q4H PRN PRN Reason: GI Upset Last Admin: 04/02/21 22:02 Dose: 4 mg Documented by: Ondansetron HCl (Ondansetron Hcl 4 Mg/2 Ml Vial) 4 mg IVPUSH ONCE PRN PRN Reason: Nausea and Vomiting Last Admin: 03/28/21 22:59 Dose: 4 mg Documented by: Pharmacy Consult (Consult Rx Perform Med Rec) 1 each MISCELLANE ONCE PRN PRN Reason: Consult order Polyethylene Glycol (Polyethylene Glycol 3350 17 Gm Powd.Pack) 17 gm PO DAILY [facility] Last Admin: 04/08/21 09:44 Dose: 17 gm Documented by: Pramoxine HCl (Pramoxine Hcl 1 % Rectal Foam 15 Gm) 1 appl [place] BID [facility] Last Admin: 04/08/21 09:45 Dose: 1 appl Documented by: Sodium Chloride (0.9 % Sodium Chloride Flush 3 Ml Syringe) 3 ml IVFLUSH QSHIFT [facility] Last Admin: 04/08/21 09:45 Dose: 3 ml Documented by: Vitamin D (Cholecalciferol (Vitamin D3) 25 Mcg Tablet) 25 mcg PO DAILY [facility] Last Admin: 04/08/21 09:44 Dose: 25 mcg Documented by: Time Spent With Patient Time: Total time spent is greater than 50% in coordination of care (as documented) at patient's floor/unit and/or counseling patient: Time with patient: 25 - 35 minutes Progress Note: Quality Stroke Does the patient have a stroke diagnosis?: No Procedures Date of Service Date of Service: 04/08/21
[2021-04-08] MEDS: Insulin Lispro 100 UNIT/ML 3 ML VIAL SUBCUT ×3 (12:20→20:35)
[2021-04-08] MEDS: metOLazone 2.5 MG TABLET PO (12:20)
[2021-04-08 16:26] LABS: Glucose, Whole Blood 165 mg/dL (60-115)
[2021-04-08] MEDS: Nystatin Powder 15 GM BOTTLE 1 APPL TOPICAL (20:36)
[2021-04-08 20:43] LABS: Glucose, Whole Blood 182 mg/dL (60-115)
[2021-04-09] VITALS (8 sets, daily range): BP systolic 102–131; BP diastolic 40–62; PULSE 71–88; RESP 18–19; TEMP 36.4–37.3; O2SAT 90–96
[2021-04-09] MEDS: Furosemide 200 MG in 0.9 % Sodium Chloride 80 ML IVCONT ×2 (02:16→21:46)
[2021-04-09] MEDS: Omeprazole 20 MG CAPSULE.DR PO (05:48)
[2021-04-09 07:34] LABS: Glucose, Whole Blood 143 mg/dL (60-115)
[2021-04-09] MEDS: Cholecalciferol (Vitamin D3) 25 MCG TABLET PO ×2 (08:59→09:05)
[2021-04-09] MEDS: polyethylene glycoL 3350 17 GM POWD.PACK PO (08:59)
[2021-04-09] MEDS: Metoprolol Tartrate 12.5 MG HALFTAB PO ×2 (09:04→20:59)
[2021-04-09] MEDS: Nystatin Powder 15 GM BOTTLE 1 APPL TOPICAL ×2 (09:06→21:00)
[2021-04-09] MEDS: Pramoxine HCl 1 % Rectal Foam 15 GM 1 APPL PR ×2 (09:06→21:00)
--- NOTE | 2021-04-09 10:42 | HO.PM.IMPN ---
Subjective Subjective Date of Service: 04/09/21 Interval History: cc: blood in stools interval history: denies further bleeding, denies sob, feeling terrible , lower extremity edema Cardiovascular Cardiovascular: Reports no additional cardiovascular complaints Respiratory Respiratory: Reports no additional respiratory complaints Physical Exam Vital Signs: Vital Signs: Last Vital Signs Temp 97.5 F 04/09/21 07:39 Pulse 75 04/09/21 09:04 Resp 18 04/09/21 07:39 BP 131/53 L 04/09/21 09:04 Pulse Ox 93 04/09/21 07:39 Body Mass Index 28.3 Const General:?comfortable, alert, awake and ill appearing Nutritional Appearance:?well nourished Orientation/consciousness:?[facility]:?Yes normocephalic and Yes atraumatic Eyes Sclerae:?sclerae normal Pupils:?Equal, round and reactive pupils present Chest Chest palpation & inspection:?normal inspection of the chest Resp Effort & Inspection:?no cough and labored Auscultation:?rales Cardio Jugular venous distension:?JVD Rate:?regular rate Rhythm:?regular rhythm Heart sounds:?Murmur heart sound present GI Palpation (GI):?Soft to palpation and nontender Skin Other:?pale Neuro General:?patient oriented x3 Cranial nerves:?Yes CN's II-XII intact bilaterally, Yes Equal, round and reactive pupils present and Yes Bilaterally intact EOM present Extrem Other:?Bilateral leg edema Objective Data Active Medications Acetaminophen (Acetaminophen 325 Mg Tablet) 650 mg PO Q6H PRN PRN Reason: Pain, Mild (Pain Scale 1-3) Benzonatate (Benzonatate 100 Mg Capsule) 100 mg PO TID PRN PRN Reason: Cough Last Admin: 04/05/21 21:37 Dose: 100 mg Documented by: MELLISSA Dextrose (Dextrose 50 % 25 Gm/50 Ml Vial) 25 gm IVPUSH Q15M PRN; Protocol PRN Reason: per Hypoglycemia Standing Ord. Glucose (Glucose Gel 15 Gm Gel..Gram.) 15 gm PO Q15M PRN; Protocol PRN Reason: per Hypoglycemia Standing Ord. Furosemide 200 mg/ Sodium (Chloride) 100 mls @ 5 mls/hr IVCONT .Q20H [facility] Last Admin: 04/09/21 02:16 Dose: 10 mg/hr, 5 mls/hr Documented by: NANETTE Insulin Human Lispro (Insulin Lispro 100 Unit/Ml 3 Ml Vial) 0 unit SUBCUT QIDACHS [facility]; Protocol Last Admin: 04/09/21 09:00 Dose: Not Given Documented by: EDWIGE Non-Admin Reason: GLUCOSE OUT of range Metoprolol Tartrate (Metoprolol Tartrate 12.5 Mg Halftab) 12.5 mg PO BID [facility]; Protocol Last Admin: 04/09/21 09:04 Dose: 12.5 mg Documented by: EDWIGE Nystatin (Nystatin Powder 15 Gm Bottle) 1 appl TOPICAL BID [facility]; Protocol Last Admin: 04/09/21 09:06 Dose: 1 appl Documented by: EDWIGE Omeprazole (Omeprazole 20 Mg Capsule.Dr) 20 mg PO DAILY@0630 [facility] Last Admin: 04/09/21 05:48 Dose: 20 mg Documented by: NANETTE Ondansetron HCl (Ondansetron Hcl 4 Mg/2 Ml Vial) 4 mg IVPUSH Q4H PRN PRN Reason: GI Upset Last Admin: 04/02/21 22:02 Dose: 4 mg Documented by: KAREN Ondansetron HCl (Ondansetron Hcl 4 Mg/2 Ml Vial) 4 mg IVPUSH ONCE PRN PRN Reason: Nausea and Vomiting Last Admin: 03/28/21 22:59 Dose: 4 mg Documented by: WILL Pharmacy Consult (Consult Rx Perform Med Rec) 1 each MISCELLANE ONCE PRN PRN Reason: Consult order Polyethylene Glycol (Polyethylene Glycol 3350 17 Gm Powd.Pack) 17 gm PO DAILY [facility] Last Admin: 04/09/21 08:59 Dose: 17 gm Documented by: EDWIGE Pramoxine HCl (Pramoxine Hcl 1 % Rectal Foam 15 Gm) 1 appl HI BID [facility] Last Admin: 04/09/21 09:06 Dose: 1 appl Documented by: EDWIGE Sodium Chloride (0.9 % Sodium Chloride Flush 3 Ml Syringe) 3 ml IVFLUSH QSHIFT [facility] Last Admin: 04/09/21 09:04 Dose: Not Given Documented by: EDWIGE Non-Admin Reason: iv lasix infusing Vitamin D (Cholecalciferol (Vitamin D3) 25 Mcg Tablet) 25 mcg PO DAILY [facility] Last Admin: 04/09/21 09:05 Dose: 25 mcg Documented by: EDWIGE Labs CBC & Chem 7: 04/07/21 07:57 04/08/21 06:17 Labs: Laboratory Results - last 24 hr 03/26/21 03/27/21 03/28/21 14:44 06:16 06:28 Creatinine 3.31 H 2.85 H 2.56 H POC Glucose 03/29/21 03/31/21 03/31/21 05:59 06:05 10:38 Creatinine 2.93 H 3.07 H 3.09 H POC Glucose 03/31/21 04/01/21 04/02/21 14:56 08:36 05:24 Creatinine 2.98 H 2.78 H 2.69 H POC Glucose 04/03/21 04/04/21 04/05/21 05:40 09:45 05:45 Creatinine 2.42 H 2.25 H 2.03 H POC Glucose 04/06/21 04/07/21 04/08/21 06:05 07:57 06:17 Creatinine 2.02 H 1.97 H 1.86 H POC Glucose 04/08/21 04/08/21 04/08/21 10:58 16:05 20:26 Creatinine POC Glucose 166 H 165 H 182 H 04/09/21 07:01 Creatinine POC Glucose 143 H Assessment and Plan (1) Urinary retention: Status: Acute Assessment and Plan: 81 yo M who initially presented on 03/26 with complaints of lower GI bleed. His course has been complicated by multiple issues. 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 Fib continue metoprolol not on OAC currently due to Gi bleed. ok to resume per GI but risk of bleeding. Patient does not want to resume AC at this time. May need eval for Watchman in the future Thad on CKD4 renal function improving with diuretics, monitor daily Nephrology input appreciated was 3.31 on admission, now 1.86 HypoNa resolved monitor Hepatitis chronic, cause unclear, had varix on EGD possibly r/t amiodorone, on hold per cardiology rec LFTs trending up and down since admission. Component of hepatic congestion likely follows with GI -- will need OP f/u Thrombocytopenia Improving Follow CBC Full Code DVT pptx, Mechanical due to GI bleed. Quality Stroke Does the patient have a stroke diagnosis?: No VTE Prior VTE?: No VTE Risk Level:: Medical - moderate - high VTE Device Contraindication: N/A - Device Ordered VTE Drug Contraindication: Treatment Not Indicated
[2021-04-09] MEDS: Insulin Lispro 100 UNIT/ML 3 ML VIAL SUBCUT ×2 (11:25→20:59)
[2021-04-09 11:35] LABS: Glucose, Whole Blood 169 mg/dL (60-115)
--- NOTE | 2021-04-09 12:15 | MHC.CM.PN ---
Per rounds no dc date at this time pt needs to diuressed cm will continue to follow
[2021-04-09] MEDS: 0.9 % Sodium Chloride Flush 3 ML SYRINGE IVFLUSH ×2 (16:06→21:00)
[2021-04-09 17:07] LABS: Glucose, Whole Blood 146 mg/dL (60-115)
--- NOTE | 2021-04-09 19:20 | PM.PNNEP ---
Subjective Subjective Date of Service: 04/09/21 Principal diagnosis: CHF, PAF, GIB, anemia Interval history: cc: blood in stools interval history: denies further bleeding, denies sob, feeling terrible , lower extremity edema Physical Exam Vital Signs: Vital Signs: Last Vital Signs Temp 99.1 F 04/09/21 19:12 Pulse 72 04/09/21 19:12 Resp 18 04/09/21 19:12 BP 108/55 L 04/09/21 19:12 Pulse Ox 93 04/09/21 19:12 Body Mass Index 28.3 Const: General: comfortable Neck: Neck: Yes supple and Yes no JVD Cardio: Jugular venous distension: no JVD Palpation: no palpable S3 Heart sounds: no rubs GI: Inspection: Yes normal to inspection and Yes distended Palpation (GI): Soft to palpation Auscultation: normal bowel sounds : Penis: edematous Neuro: Motor exam (neuro): No Asterixis during motor activity present Objective Data Labs CBC & Chem 7: 04/07/21 07:57 04/08/21 06:17 Labs: Laboratory Results - last 24 hr 04/08/21 04/09/21 04/09/21 20:26 07:01 10:56 POC Glucose 182 H 143 H 169 H 04/09/21 16:56 POC Glucose 146 H Procedures Date of Service Date of Service: 04/09/21 Assessment & Plan Assessment and plan (1) Hyponatremia: Status: Acute Assessment and Plan: Hypervolemic hyponatremia Sna improved Keep Lasix and O > I IV LASIX Restrict PO Water intake CKD JOELLEN: f/u Renal ( Carol ) as outpt Insert [facility] due to retention (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
[2021-04-09 19:48] LABS: Glucose, Whole Blood 162 mg/dL (60-115)
[2021-04-09] MEDS: ondansetron HCL 4 MG/2 ML VIAL IVPUSH (21:03)
[2021-04-10] VITALS (9 sets, daily range): BP systolic 97–113; BP diastolic 44–56; PULSE 65–107; RESP 12–20; TEMP 36.3–36.8; O2SAT 90–97
[2021-04-10] MEDS: Omeprazole 20 MG CAPSULE.DR PO (06:06)
[2021-04-10 06:52] LABS: Hematocrit 29.1 % (42-52); Hemoglobin 9.8 g/dl (14.0-18.0); Mean Corpuscular HGB Conc 33.7 g/dl (31.0-36.0); Mean Corpuscular Hemoglobin 33.4 pg (27.0-33.0); Mean Corpuscular Volume 99.3 fL (80-98); Mean Platelet Volume 10.6 fL (9.4-12.4); Platelet Count 134 X10*3/uL (160-400); Red Blood Count 2.93 X10*6/uL (4.60-5.80); Red Cell Distribution Width 17.3 % (11.0-16.0); White Blood Count 6.3 X10*3/uL (4.8-10.8)
[2021-04-10 07:24] LABS: Anion Gap 16 (12-20); Blood Urea Nitrogen 41 mg/dL (9-16); Calcium 7.7 mg/dL (8.4-10.2); Carbon Dioxide 30 mmol/L (22-29); Chloride 92 mmol/L (96-108); Creatinine Clr Calc Pharmacy 29.9; Estimated Glomerular Filt Rate 31; Glucose Fasting 149 mg/dL (60-99); Potassium 3.1 mmol/L (3.3-5.1); Sodium 135 mmol/L (135-145)
[2021-04-10 07:34] LABS: Glucose, Whole Blood 141 mg/dL (60-115)
[2021-04-10] MEDS: 0.9 % Sodium Chloride Flush 3 ML SYRINGE IVFLUSH ×3 (07:56→21:31)
[2021-04-10] MEDS: Furosemide 40 MG/4 ML VIAL IVPUSH ×2 (09:27→16:44)
[2021-04-10] MEDS: Potassium Chloride ER 20 MEQ TAB.ER.PRT 40 MEQ PO (09:27)
[2021-04-10] MEDS: polyethylene glycoL 3350 17 GM POWD.PACK PO (09:28)
[2021-04-10] MEDS: Nystatin Powder 15 GM BOTTLE 1 APPL TOPICAL ×2 (09:28→21:31)
[2021-04-10] MEDS: Metoprolol Tartrate 12.5 MG HALFTAB PO ×2 (09:28→21:31)
[2021-04-10] MEDS: Pramoxine HCl 1 % Rectal Foam 15 GM 1 APPL PR ×2 (09:28→21:32)
--- NOTE | 2021-04-10 09:54 | HO.PM.IMPN ---
Subjective Subjective Date of Service: 04/10/21 Interval History: cc: gi bleed interval: feeling better, edema down Respiratory Respiratory: Reports no additional respiratory complaints Gastrointestinal Gastrointestinal: Reports no additional gastrointestinal complaints Physical Exam Vital Signs: Vital Signs: Last Vital Signs Temp 98.3 F 04/10/21 07:05 Pulse 76 04/10/21 09:28 Resp 17 04/10/21 07:05 BP 113/56 L 04/10/21 09:28 Pulse Ox 91 L 04/10/21 09:23 Body Mass Index 28.3 Objective Data Active Medications Acetaminophen (Acetaminophen 325 Mg Tablet) 650 mg PO Q6H PRN PRN Reason: Pain, Mild (Pain Scale 1-3) Benzonatate (Benzonatate 100 Mg Capsule) 100 mg PO TID PRN PRN Reason: Cough Last Admin: 04/05/21 21:37 Dose: 100 mg Documented by: MELLISSA Dextrose (Dextrose 50 % 25 Gm/50 Ml Vial) 25 gm IVPUSH Q15M PRN; Protocol PRN Reason: per Hypoglycemia Standing Ord. Furosemide (Furosemide 40 Mg/4 Ml Vial) 40 mg IVPUSH BID@0900,1800 [facility]; Protocol Last Admin: 04/10/21 09:27 Dose: 40 mg Documented by: CAMERON Glucose (Glucose Gel 15 Gm Gel..Gram.) 15 gm PO Q15M PRN; Protocol PRN Reason: per Hypoglycemia Standing Ord. Insulin Human Lispro (Insulin Lispro 100 Unit/Ml 3 Ml Vial) 0 unit SUBCUT QIDACHS [facility]; Protocol Last Admin: 04/10/21 07:43 Dose: Not Given Documented by: CAMERON Non-Admin Reason: No Insulin Coverage Metoprolol Tartrate (Metoprolol Tartrate 12.5 Mg Halftab) 12.5 mg PO BID [facility]; Protocol Last Admin: 04/10/21 09:28 Dose: 12.5 mg Documented by: CAMERON Nystatin (Nystatin Powder 15 Gm Bottle) 1 appl TOPICAL BID [facility]; Protocol Last Admin: 04/10/21 09:28 Dose: 1 appl Documented by: CAMERON Omeprazole (Omeprazole 20 Mg Capsule.) 20 mg PO DAILY@0630 [facility] Last Admin: 04/10/21 06:06 Dose: 20 mg Documented by: NANETTE Ondansetron HCl (Ondansetron Hcl 4 Mg/2 Ml Vial) 4 mg IVPUSH Q4H PRN PRN Reason: GI Upset Last Admin: 04/09/21 21:03 Dose: 4 mg Documented by: NANETTE Ondansetron HCl (Ondansetron Hcl 4 Mg/2 Ml Vial) 4 mg IVPUSH ONCE PRN PRN Reason: Nausea and Vomiting Last Admin: 03/28/21 22:59 Dose: 4 mg Documented by: WILL Pharmacy Consult (Consult Rx Perform Med Rec) 1 each MISCELLANE ONCE PRN PRN Reason: Consult order Polyethylene Glycol (Polyethylene Glycol 3350 17 Gm Powd.Pack) 17 gm PO DAILY [facility] Last Admin: 04/10/21 09:28 Dose: 17 gm Documented by: CAMERON Pramoxine HCl (Pramoxine Hcl 1 % Rectal Foam 15 Gm) 1 appl [place] BID [facility] Last Admin: 04/10/21 09:28 Dose: 1 appl Documented by: CAMERON Sodium Chloride (0.9 % Sodium Chloride Flush 3 Ml Syringe) 3 ml IVFLUSH QSHIFT [facility] Last Admin: 04/10/21 07:56 Dose: 3 ml Documented by: CAMERON Vitamin D (Cholecalciferol (Vitamin D3) 25 Mcg Tablet) 25 mcg PO DAILY [facility] Last Admin: 04/09/21 09:05 Dose: 25 mcg Documented by: EDWIGE Labs CBC & Chem 7: 04/10/21 06:03 04/10/21 06:03 Labs: Laboratory Results - last 24 hr 04/09/21 04/09/21 04/09/21 10:56 16:56 19:45 MCV MCH MCHC RDW Plt Count MPV Absolute Nucleated RBC Nucleated RBC % (auto) Anion Gap Estim Creat Clear Calc Estimated GFR POC Glucose 169 H 146 H 162 H Fasting Glucose Calcium 04/10/21 04/10/21 04/10/21 06:03 06:03 07:09 MCV 99.3 H MCH 33.4 H MCHC 33.7 RDW 17.3 H Plt Count 134 L MPV 10.6 Absolute Nucleated RBC 0.000 Nucleated RBC % (auto) 0.0 Anion Gap 16 Estim Creat Clear Calc 29.9 Estimated GFR 31 POC Glucose 141 H Fasting Glucose 149 H Calcium 7.7 L Assessment and Plan (1) Urinary retention: Status: Acute Assessment and Plan: 81 yo M who initially presented on 03/26 with complaints of lower GI bleed. His course has been complicated by multiple issues. 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 Fib continue metoprolol not on OAC currently due to Gi bleed. ok to resume per GI but risk of bleeding. Patient does not want to resume AC at this time. May need eval for Watchman in the future Thad on CKD4 renal function improving with diuretics, monitor daily Nephrology input appreciated was 3.31 on admission, now 2.05 HypoNa resolved monitor Hepatitis chronic, cause unclear, had varix on EGD possibly r/t amiodorone, on hold per cardiology rec LFTs trending up and down since admission. Component of hepatic congestion likely follows with GI -- will need OP f/u Thrombocytopenia Improving Follow CBC Full Code DVT pptx, Mechanical due to GI bleed. Quality Stroke Does the patient have a stroke diagnosis?: No VTE Prior VTE?: No VTE Risk Level:: Medical - moderate - high VTE Device Contraindication: N/A - Device Ordered VTE Drug Contraindication: Treatment Not Indicated
--- NOTE | 2021-04-10 10:44 | PM.PNNEP ---
Subjective Subjective Date of Service: 04/10/21 Principal diagnosis: CHF, PAF, GIB, anemia Interval history: Seen and examined, events noted Physical Exam Vital Signs: Vital Signs: Last Vital Signs Temp 98.3 F 04/10/21 07:05 Pulse 76 04/10/21 09:28 Resp 17 04/10/21 07:05 BP 113/56 L 04/10/21 09:28 Pulse Ox 91 L 04/10/21 09:23 Body Mass Index 28.3 Const: General: comfortable Neck: Neck: Yes supple and Yes no JVD Cardio: Jugular venous distension: no JVD Palpation: no palpable S3 Heart sounds: no rubs GI: Inspection: Yes normal to inspection and Yes distended Palpation (GI): Soft to palpation Auscultation: normal bowel sounds : Penis: edematous Neuro: Motor exam (neuro): No Asterixis during motor activity present Objective Data Labs CBC & Chem 7: 04/10/21 06:03 04/10/21 06:03 Labs: Laboratory Results - last 24 hr 04/09/21 04/09/21 04/09/21 10:56 16:56 19:45 WBC RBC Hgb Hct MCV MCH MCHC RDW Plt Count MPV Absolute Nucleated RBC Nucleated RBC % (auto) Sodium Potassium Chloride Carbon Dioxide Anion Gap BUN Creatinine Estim Creat Clear Calc Estimated GFR POC Glucose 169 H 146 H 162 H Fasting Glucose Calcium 04/10/21 04/10/21 04/10/21 06:03 06:03 07:09 WBC 6.3 RBC 2.93 L Hgb 9.8 L Hct 29.1 L MCV 99.3 H MCH 33.4 H MCHC 33.7 RDW 17.3 H Plt Count 134 L MPV 10.6 Absolute Nucleated RBC 0.000 Nucleated RBC % (auto) 0.0 Sodium 135 Potassium 3.1 L Chloride 92 L Carbon Dioxide 30 H Anion Gap 16 BUN 41 H Creatinine 2.05 H Estim Creat Clear Calc 29.9 Estimated GFR 31 POC Glucose 141 H Fasting Glucose 149 H Calcium 7.7 L Procedures Date of Service Date of Service: 04/10/21 Assessment & Plan Assessment and plan (1) Hyponatremia: Status: Acute Assessment and Plan: Hypervolemic hyponatremia Sna improved Keep Lasix and O > I IV LASIX Restrict PO Water intake CKD JOELLEN: f/u Renal ( Carol ) as outpt REC: replaceK., avoid NToxins, f/u as outpt with Dr Medina ( I will arrange) (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
[2021-04-10 11:06] LABS: Glucose, Whole Blood 152 mg/dL (60-115)
--- NOTE | 2021-04-10 11:10 | PC.NURSE ---
Skin assessment completed today. Patient has a skin tear to left arm, Woundres gel applied covered with foam dressing. Triad cream to groin and buttocks. No other skin issues at this time.
[2021-04-10] MEDS: Insulin Lispro 100 UNIT/ML 3 ML VIAL SUBCUT ×3 (11:35→21:31)
[2021-04-10 16:43] LABS: Glucose, Whole Blood 169 mg/dL (60-115)
[2021-04-10 21:00] LABS: Glucose, Whole Blood 194 mg/dL (60-115)
[2021-04-10] MEDS: Benzonatate 100 MG CAPSULE PO (21:31)
[2021-04-11] VITALS (9 sets, daily range): BP systolic 100–117; BP diastolic 47–55; PULSE 64–99; RESP 12–19; TEMP 36.1–37; O2SAT 91–98; BMI 29.0
[2021-04-11 06:30] LABS: Hematocrit 28.9 % (42-52); Hemoglobin 9.8 g/dl (14.0-18.0); Mean Corpuscular HGB Conc 33.9 g/dl (31.0-36.0); Mean Corpuscular Hemoglobin 34.3 pg (27.0-33.0); Mean Platelet Volume 10.2 fL (9.4-12.4); Platelet Count 128 X10*3/uL (160-400); Red Blood Count 2.86 X10*6/uL (4.60-5.80); Red Cell Distribution Width 17.4 % (11.0-16.0); White Blood Count 5.3 X10*3/uL (4.8-10.8)
[2021-04-11] MEDS: Omeprazole 20 MG CAPSULE.DR PO (06:35)
[2021-04-11 06:51] LABS: B Type Natriuretic Peptide 1296 pg/mL (<100)
[2021-04-11 07:05] LABS: Alanine Aminotransferase 32 U/L (0-40); Albumin Level 2.2 g/dL (3.5-5.0); Alkaline Phosphatase 144 U/L (39-117); Aspartate Amino Transferase 75 U/L (5-37); Bilirubin Direct 3.2 mg/dL (0.0-0.5); Blood Urea Nitrogen 44 mg/dL (9-16); Calcium 7.9 mg/dL (8.4-10.2); Creatinine Clr Calc Pharmacy 29.5; Estimated Glomerular Filt Rate 31; Glucose Fasting 147 mg/dL (60-99); Magnesium 2.1 mg/dL (1.6-2.6); Total Protein 5.8 g/dL (6.5-8.0)
[2021-04-11 07:21] LABS: Anion Gap 15 (12-20); Carbon Dioxide 32 mmol/L (22-29); Chloride 93 mmol/L (96-108); Potassium 2.8 mmol/L (3.3-5.1); Sodium 137 mmol/L (135-145)
[2021-04-11 08:27] LABS: Glucose, Whole Blood 134 mg/dL (60-115)
[2021-04-11] MEDS: Cholecalciferol (Vitamin D3) 25 MCG TABLET PO (10:09)
[2021-04-11] MEDS: Potassium Chloride ER 20 MEQ TAB.ER.PRT 40 MEQ PO ×2 (10:09→16:05)
[2021-04-11] MEDS: polyethylene glycoL 3350 17 GM POWD.PACK PO (10:09)
[2021-04-11] MEDS: Metoprolol Tartrate 12.5 MG HALFTAB PO ×2 (10:09→21:39)
[2021-04-11] MEDS: 0.9 % Sodium Chloride Flush 3 ML SYRINGE IVFLUSH ×3 (10:09→21:40)
[2021-04-11] MEDS: Pramoxine HCl 1 % Rectal Foam 15 GM 1 APPL PR ×2 (10:10→21:44)
[2021-04-11] MEDS: Nystatin Powder 15 GM BOTTLE 1 APPL TOPICAL ×2 (10:10→21:44)
--- NOTE | 2021-04-11 10:20 | HO.PM.IMPN ---
Subjective Subjective Date of Service: 04/11/21 Interval History: cc: gi bleed interval history: continues to feel better, improved edema Cardiovascular Cardiovascular: Reports no additional cardiovascular complaints Respiratory Respiratory: Reports no additional respiratory complaints Physical Exam Vital Signs: Vital Signs: Last Vital Signs Temp 98.6 F 04/11/21 07:32 Pulse 64 04/11/21 10:09 Resp 18 04/11/21 07:32 BP 117/52 L 04/11/21 10:09 Pulse Ox 98 04/11/21 07:32 Body Mass Index 29.0 General: AO X 3, no acute distress, juandiced Resp: CTA bilateral, no accessory muscles used CVS: S1,S2,RRR, edema improved GI: soft, non tender, non distended Neuro: motor grossly intact, alert Psych: appropriate affect, appropriate insight Objective Data Active Medications Acetaminophen (Acetaminophen 325 Mg Tablet) 650 mg PO Q6H PRN PRN Reason: Pain, Mild (Pain Scale 1-3) Benzonatate (Benzonatate 100 Mg Capsule) 100 mg PO TID PRN PRN Reason: Cough Last Admin: 04/10/21 21:31 Dose: 100 mg Documented by: OTIS Dextrose (Dextrose 50 % 25 Gm/50 Ml Vial) 25 gm IVPUSH Q15M PRN; Protocol PRN Reason: per Hypoglycemia Standing Ord. Glucose (Glucose Gel 15 Gm Gel..Gram.) 15 gm PO Q15M PRN; Protocol PRN Reason: per Hypoglycemia Standing Ord. Insulin Human Lispro (Insulin Lispro 100 Unit/Ml 3 Ml Vial) 0 unit SUBCUT QIDACHS [facility]; Protocol Last Admin: 04/11/21 08:28 Dose: Not Given Documented by: BRIT Non-Admin Reason: No Insulin Coverage Metoprolol Tartrate (Metoprolol Tartrate 12.5 Mg Halftab) 12.5 mg PO BID [facility]; Protocol Last Admin: 04/11/21 10:09 Dose: 12.5 mg Documented by: BRIT Nystatin (Nystatin Powder 15 Gm Bottle) 1 appl TOPICAL BID [facility]; Protocol Last Admin: 04/11/21 10:10 Dose: 1 appl Documented by: BIRT Omeprazole (Omeprazole 20 Mg Capsule.) 20 mg PO DAILY@0630 [facility] Last Admin: 04/11/21 06:35 Dose: 20 mg Documented by: OTIS Ondansetron HCl (Ondansetron Hcl 4 Mg/2 Ml Vial) 4 mg IVPUSH Q4H PRN PRN Reason: GI Upset Last Admin: 04/09/21 21:03 Dose: 4 mg Documented by: NANETTE Ondansetron HCl (Ondansetron Hcl 4 Mg/2 Ml Vial) 4 mg IVPUSH ONCE PRN PRN Reason: Nausea and Vomiting Last Admin: 03/28/21 22:59 Dose: 4 mg Documented by: WILL Pharmacy Consult (Consult Rx Perform Med Rec) 1 each MISCELLANE ONCE PRN PRN Reason: Consult order Polyethylene Glycol (Polyethylene Glycol 3350 17 Gm Powd.Pack) 17 gm PO DAILY [facility] Last Admin: 04/11/21 10:09 Dose: 17 gm Documented by: BRIT Potassium Chloride (Potassium Chloride Er 20 Meq Tab.Er.Prt) 40 meq PO ONCE ONE Stop: 04/11/21 16:01 Pramoxine HCl (Pramoxine Hcl 1 % Rectal Foam 15 Gm) 1 appl [place] BID [facility] Last Admin: 04/11/21 10:10 Dose: 1 appl Documented by: BRIT Sodium Chloride (0.9 % Sodium Chloride Flush 3 Ml Syringe) 3 ml IVFLUSH QSHIFT [facility] Last Admin: 04/11/21 10:09 Dose: 3 ml Documented by: BRIT Torsemide (Torsemide 20 Mg Tablet) 20 mg PO BID [facility]; Protocol Vitamin D (Cholecalciferol (Vitamin D3) 25 Mcg Tablet) 25 mcg PO DAILY [facility] Last Admin: 04/11/21 10:09 Dose: 25 mcg Documented by: BRIT Labs CBC & Chem 7: 04/11/21 06:16 04/11/21 06:16 Labs: Laboratory Results - last 24 hr 04/10/21 04/10/21 04/10/21 10:52 16:36 20:44 MCV MCH MCHC RDW Plt Count MPV Absolute Nucleated RBC Nucleated RBC % (auto) Anion Gap Estim Creat Clear Calc Estimated GFR POC Glucose 152 H 169 H 194 H Fasting Glucose Calcium Magnesium Total Bilirubin Direct Bilirubin AST ALT Alkaline Phosphatase B-Natriuretic Peptide Total Protein Albumin 04/11/21 04/11/21 04/11/21 06:16 06:16 06:16 MCV 101.0 H MCH 34.3 H MCHC 33.9 RDW 17.4 H Plt Count 128 L MPV 10.2 Absolute Nucleated RBC 0.000 Nucleated RBC % (auto) 0.0 Anion Gap 15 Estim Creat Clear Calc 29.5 Estimated GFR 31 POC Glucose Fasting Glucose 147 H Calcium 7.9 L Magnesium 2.1 Total Bilirubin 5.0 H Direct Bilirubin 3.2 H AST 75 H ALT 32 Alkaline Phosphatase 144 H D B-Natriuretic Peptide 1296 H Total Protein 5.8 L Albumin 2.2 L 04/11/21 08:09 MCV MCH MCHC RDW Plt Count MPV Absolute Nucleated RBC Nucleated RBC % (auto) Anion Gap Estim Creat Clear Calc Estimated GFR POC Glucose 134 H Fasting Glucose Calcium Magnesium Total Bilirubin Direct Bilirubin AST ALT Alkaline Phosphatase B-Natriuretic Peptide Total Protein Albumin Assessment and Plan (1) Urinary retention: Status: Acute Assessment and Plan: 81 yo M who initially presented on 03/26 with complaints of lower GI bleed. His course has been complicated by multiple issues. 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 Fib continue metoprolol not on OAC currently due to Gi bleed. ok to resume per GI but risk of bleeding. Patient does not want to resume AC at this time. May need eval for Watchman in the future Thad on CKD4 renal function improving with diuretics, monitor daily Nephrology input appreciated was 3.31 on admission, now 2.05 HypoNa resolved monitor Hepatitis chronic, cause unclear, had varix on EGD possibly r/t amiodorone, on hold per cardiology rec LFTs trending up and down since admission. Component of hepatic congestion likely follows with GI -- will need OP f/u Thrombocytopenia Improving Follow CBC Full Code DVT pptx, Mechanical due to GI bleed. Quality Stroke Does the patient have a stroke diagnosis?: No VTE Prior VTE?: No VTE Risk Level:: Medical - moderate - high VTE Device Contraindication: N/A - Device Ordered VTE Drug Contraindication: Treatment Not Indicated
--- NOTE | 2021-04-11 11:27 | P.PNNP_ITS ---
Subjective Subjective Date of Service: 04/11/21 Principal diagnosis: CHF, PAF, GIB, anemia Interval history: Seen and examined, events noted Physical Exam Vital Signs: Vital Signs: Last Vital Signs Temp 98.6 F 04/11/21 07:32 Pulse 64 04/11/21 10:17 Resp 18 04/11/21 07:32 BP 117/52 L 04/11/21 10:17 Pulse Ox 98 04/11/21 07:32 Body Mass Index 29.0 Const: General: comfortable Neck: Neck: Yes supple and Yes no JVD Cardio: Jugular venous distension: no JVD Palpation: no palpable S3 Heart sounds: no rubs GI: Inspection: Yes normal to inspection and Yes distended Palpation (GI): Soft to palpation Auscultation: normal bowel sounds : Penis: edematous Neuro: Motor exam (neuro): No Asterixis during motor activity present Objective Data Labs CBC & Chem 7: 04/11/21 06:16 04/11/21 06:16 Labs: Laboratory Results - last 24 hr 04/10/21 04/10/21 04/11/21 16:36 20:44 06:16 WBC 5.3 RBC 2.86 L Hgb 9.8 L Hct 28.9 L MCV 101.0 H MCH 34.3 H MCHC 33.9 RDW 17.4 H Plt Count 128 L MPV 10.2 Absolute Nucleated RBC 0.000 Nucleated RBC % (auto) 0.0 Sodium Potassium Chloride Carbon Dioxide Anion Gap BUN Creatinine Estim Creat Clear Calc Estimated GFR POC Glucose 169 H 194 H Fasting Glucose Calcium Magnesium Total Bilirubin Direct Bilirubin AST ALT Alkaline Phosphatase B-Natriuretic Peptide Total Protein Albumin 04/11/21 04/11/21 04/11/21 06:16 06:16 08:09 WBC RBC Hgb Hct MCV MCH MCHC RDW Plt Count MPV Absolute Nucleated RBC Nucleated RBC % (auto) Sodium 137 Potassium 2.8 L Chloride 93 L Carbon Dioxide 32 H Anion Gap 15 BUN 44 H Creatinine 2.10 H Estim Creat Clear Calc 29.5 Estimated GFR 31 POC Glucose 134 H Fasting Glucose 147 H Calcium 7.9 L Magnesium 2.1 Total Bilirubin 5.0 H Direct Bilirubin 3.2 H AST 75 H ALT 32 Alkaline Phosphatase 144 H D B-Natriuretic Peptide 1296 H Total Protein 5.8 L Albumin 2.2 L Procedures Date of Service Date of Service: 04/11/21 Assessment & Plan Assessment and plan (1) Hyponatremia: Status: Acute Assessment and Plan: CKD 3 JOELLEN: f/u Renal ( Carol ) as outpt HypoK:d/c lasix;getting replaced REC: replace K., d/c lasix; avoid NToxins, f/u as outpt with Dr Medina ( I will arrange) (2) Chronic kidney disease (CKD) stage G4/A1, severely decreased glomerular filtration rate (GFR) between 15-29 mL/min/1.73 square meter and albuminuria creatinine ratio less than 30 mg/g: Start date: 04/11/21 Start time: 11:31 Status: Acute Assessment and Plan: Renal function is better No indication for dialysis Time Spent With Patient Time: Total time spent is greater than 50% in coordination of care (as document ed) at patient's floor/unit and/or counseling patient: Progress Note: Quality Stroke Does the patient have a stroke diagnosis?: No
--- NOTE | 2021-04-11 11:41 | MHC.CM.PN ---
per kristin pt will be dcd to [facility] where he has been accepted will need covid which said he would order tomorrow
[2021-04-11 12:18] LABS: Glucose, Whole Blood 143 mg/dL (60-115)
--- NOTE | 2021-04-11 13:00 | PM.CNGS ---
History of Present Illness Consult details Consult date: 04/11/21 Narrative: 81-year-old male referred for bleeding from the scrotal skin. He was admitted 2 weeks ago for hematochezia. Was noted to have radiation proctitis on flexible sigmoidoscopy. He had to be transfused because of martinez anemia. He was also noted to have elevated LFTs consistent with hepatitis with the etiology of this is uncertain. He he has other multiple medical problems including CHF, aortic stenosis and atrial fibrillation and had been on anticoagulation recently. This morning, he was noted to have some area of bleeding on the scrotal skin. This appeared to be brisk as reported by the nurse. I was therefore asked to consult. Review of Systems Constitutional: Constitutional: Denies chills and Denies fever(s) Cardiovascular: Cardiovascular: Denies chest pain and Denies dyspnea on exertion Respiratory: Respiratory: Denies cough and Denies dyspnea on exertion Gastrointestinal: Gastrointestinal: Denies abdominal pain and Reports hematochezia Genitourinary: Genitourinary: Denies hematuria Musculoskeletal: Musculoskeletal: Denies abnormal gait Neurologic: Denies abnormal gait [facility] Past Medical History Medical History (Updated 04/11/21 @ 13:04 by Renato Mayes MD) AAA (abdominal aortic aneurysm) Abdominal aortic aneurysm Atrial fibrillation Chronic kidney disease (CKD) stage G4/A1, severely decreased glomerular filtration rate (GFR) between 15-29 mL/min/1.73 square meter and albuminuria creatinine ratio less than 30 mg/g Congestive heart failure Coronary artery disease History of CVA (cerebrovascular accident) History of prostate cancer Hypercholesterolemia Hypertension Insomnia Legally blind in right eye, as defined in [place] Obesity (BMI 30-39.9) Peripheral vascular disease Renal artery stenosis Retinal detachment Sick sinus syndrome Type 2 diabetes mellitus with hyperglycemia Venous bleed Family History Family History Father Heart problem Diabetes Prostate cancer Mother Acute leukemia Surgical History Surgical History H/O colonoscopy H/O esophagogastroduodenoscopy History of cataract surgery History of pacemaker History of prostatectomy History of thumb surgery History of tonsillectomy Hx of cystoscopy Renal calculi Social History Social History Household Members: Other Housing: Prison Do you presently have visiting nurse or other home services: No Alcohol intake: never Patient Tobacco Use Status: Former Tobacco user Quit Date: 2004 Years Smoked: Cannot remember e-Cigarette/Vaping Use: Never Used Second Hand Smoke Exposure: No Use of substances other than those prescribed or required for medical reasons: No Currently Displaying Signs/Symptoms of Drug Intoxication Withdrawal: No Have you been hit, kicked, punched, or otherwise hurt by someone within the past year? If so, by whom?: No Do you feel safe in your current relationship?: Yes Is there a partner from a previous relationship who is making you feel unsafe now?: No Are you made to feel afraid or neglected: No Are you DNR?: No Advance Directives: Yes Advance Directives Information Provided: Yes Advance Directives on File: Yes Advance Directives Date on File: 10/06/20 Do you have thoughts of harming others: None Do you have a plan to hurt others: No Plan Recently lost weight without trying: Yes How much weight loss: Unsure Eating poorly because of decreased appetite: Yes Nutrition screen score: 5 Nutrition Risks: No Nutritional Risk service: Yes (UNSURE ABOUT CONNECTION) Current occupational status: retired [employer] Allergies Allergy/AdvReac Type Severity Reaction Status Date / Time No Known Allergies Allergy Verified 03/17/21 17:45 [No Known Allergies*] Active Medications: Current Medications Acetaminophen (Acetaminophen 325 Mg Tablet) 650 mg PO Q6H PRN PRN Reason: Pain, Mild (Pain Scale 1-3) Benzonatate (Benzonatate 100 Mg Capsule) 100 mg PO TID PRN PRN Reason: Cough Last Admin: 04/10/21 21:31 Dose: 100 mg Documented by: Dextrose (Dextrose 50 % 25 Gm/50 Ml Vial) 25 gm IVPUSH Q15M PRN; Protocol PRN Reason: per Hypoglycemia Standing Ord. Glucose (Glucose Gel 15 Gm Gel..Gram.) 15 gm PO Q15M PRN; Protocol PRN Reason: per Hypoglycemia Standing Ord. Insulin Human Lispro (Insulin Lispro 100 Unit/Ml 3 Ml Vial) 0 unit SUBCUT QIDACHS [facility]; Protocol Last Admin: 04/11/21 12:22 Dose: Not Given Documented by: Metoprolol Tartrate (Metoprolol Tartrate 12.5 Mg Halftab) 12.5 mg PO BID [facility]; Protocol Last Admin: 04/11/21 10:09 Dose: 12.5 mg Documented by: Nystatin (Nystatin Powder 15 Gm Bottle) 1 appl TOPICAL BID JEANETTE; Protocol Last Admin: 04/11/21 10:10 Dose: 1 appl Documented by: Omeprazole (Omeprazole 20 Mg Capsule.) 20 mg PO DAILY@0630 [facility] Last Admin: 04/11/21 06:35 Dose: 20 mg Documented by: Ondansetron HCl (Ondansetron Hcl 4 Mg/2 Ml Vial) 4 mg IVPUSH Q4H PRN PRN Reason: GI Upset Last Admin: 04/09/21 21:03 Dose: 4 mg Documented by: Ondansetron HCl (Ondansetron Hcl 4 Mg/2 Ml Vial) 4 mg IVPUSH ONCE PRN PRN Reason: Nausea and Vomiting Last Admin: 03/28/21 22:59 Dose: 4 mg Documented by: Pharmacy Consult (Consult Rx Perform Med Rec) 1 each MISCELLANE ONCE PRN PRN Reason: Consult order Polyethylene Glycol (Polyethylene Glycol 3350 17 Gm Powd.Pack) 17 gm PO DAILY [facility] Last Admin: 04/11/21 10:09 Dose: 17 gm Documented by: Potassium Chloride (Potassium Chloride Er 20 Meq Tab.Er.Prt) 40 meq PO ONCE ONE Stop: 04/11/21 16:01 Pramoxine HCl (Pramoxine Hcl 1 % Rectal Foam 15 Gm) 1 appl [place] BID [facility] Last Admin: 04/11/21 10:10 Dose: 1 appl Documented by: Sodium Chloride (0.9 % Sodium Chloride Flush 3 Ml Syringe) 3 ml IVFLUSH QSHIFT [facility] Last Admin: 04/11/21 10:09 Dose: 3 ml Documented by: Torsemide (Torsemide 20 Mg Tablet) 20 mg PO BID [facility]; Protocol Vitamin D (Cholecalciferol (Vitamin D3) 25 Mcg Tablet) 25 mcg PO DAILY [facility] Last Admin: 04/11/21 10:09 Dose: 25 mcg Documented by: Home Medications Medication Instructions Recorded Confirmed Last Taken Type amiodarone 200 mg tablet 200 mg PO DAILY 05/29/20 03/26/21 03/17/21 History omega 3-smf-wkf-fish oil 1,200 mg 1 cap PO DAILY cap 05/29/20 03/26/21 03/17/21 History (144 mg-216 mg) capsule (Fish Oil) torsemide 20 mg tablet 20 mg PO BID 10/03/20 03/26/21 03/17/21 History polyethylene glycol 3350 17 17 g PO DAILY 12/12/20 03/26/21 03/17/21 History gram/dose oral powder (Miralax) insulin degludec 100 unit/mL (3 30 unit SUBCUT DAILY@1700 01/08/21 03/26/21 03/17/21 History mL) subcutaneous pen (Tresiba FlexTouch U-100 insulin) acetaminophen 325 mg tablet 650 mg PO Q4H PRN 03/26/21 03/26/21 Unknown History cephalexin 500 mg capsule 500 mg PO BID 03/26/21 03/26/21 Unknown History cetirizine 5 mg tablet 5 mg PO BEDTIME 03/26/21 03/26/21 Unknown History cholecalciferol (vitamin D3) 25 25 mcg PO DAILY 03/26/21 03/26/21 Unknown History mcg (1,000 unit) tablet dextrose 40 % oral gel (Glucose 10 g PO Q15M PRN 03/26/21 03/26/21 Unknown History Gel) hydrocortisone 2.5 % topical cream 1 appl [place] DAILY PRN 03/26/21 03/26/21 Unknown History with perineal applicator (Procto-Med HC) linagliptin 5 mg tablet (Tradjenta) 1 tab PO DAILY 03/26/21 03/26/21 Unknown History metoprolol succinate 100 mg 100 mg PO DAILY 03/26/21 03/26/21 Unknown History tablet,extended release 24 hr Physical Exam Vital Signs: Vital Signs: Last Vital Signs Temp 98.6 F 04/11/21 07:32 Pulse 64 04/11/21 10:17 Resp 18 04/11/21 07:32 BP 117/52 L 04/11/21 10:17 Pulse Ox 98 04/11/21 07:32 Body Mass Index 29.0 Const: Other: Appears jaundiced General: comfortable and no acute distress Orientation/consciousness: patient oriented x3 Neck: Neck: Yes no lymphadenopathy Resp: Auscultation: clear to auscultation bilaterally Cardio: Rhythm: abnormal rhythm GI: Palpation (GI): Soft to palpation, nontender and no guarding : Other: Scrotal skin on the left- stigmata of a recent skin break, no active bleeding, no cellulitis, no induration Neuro: General: patient oriented x3 Results Labs Result diagrams: 04/11/21 06:16 04/11/21 06:16 Labs: Abnormal lab results 04/10/21 04/10/21 04/11/21 Range/Units 16:36 20:44 06:16 RBC 2.86 L (4.60-5.80) X10*6/uL Hgb 9.8 L (14.0-18.0) g/dl Hct 28.9 L (42-52) % MCV 101.0 H (80-98) fL MCH 34.3 H (27.0-33.0) pg RDW 17.4 H (11.0-16.0) % Plt Count 128 L (160-400) X10*3/uL Potassium (3.3-5.1) mmol/L Chloride (96-108) mmol/L Carbon Dioxide (22-29) mmol/L BUN (9-16) mg/dL Creatinine (0.5-1.4) mg/dL POC Glucose 169 H 194 H (60-115) mg/dL Fasting Glucose (60-99) mg/dL Calcium (8.4-10.2) mg/dL Total Bilirubin (0.0-1.0) mg/dL Direct Bilirubin (0.0-0.5) mg/dL AST (5-37) U/L Alkaline Phosphatase (39-117) U/L B-Natriuretic Peptide (<100) pg/mL Total Protein (6.5-8.0) g/dL Albumin (3.5-5.0) g/dL 04/11/21 04/11/21 04/11/21 Range/Units 06:16 06:16 08:09 RBC (4.60-5.80) X10*6/uL Hgb (14.0-18.0) g/dl Hct (42-52) % MCV (80-98) fL MCH (27.0-33.0) pg RDW (11.0-16.0) % Plt Count (160-400) X10*3/uL Potassium 2.8 L (3.3-5.1) mmol/L Chloride 93 L (96-108) mmol/L Carbon Dioxide 32 H (22-29) mmol/L BUN 44 H (9-16) mg/dL Creatinine 2.10 H (0.5-1.4) mg/dL POC Glucose 134 H (60-115) mg/dL Fasting Glucose 147 H (60-99) mg/dL Calcium 7.9 L (8.4-10.2) mg/dL Total Bilirubin 5.0 H (0.0-1.0) mg/dL Direct Bilirubin 3.2 H (0.0-0.5) mg/dL AST 75 H (5-37) U/L Alkaline Phosphatase 144 H D (39-117) U/L B-Natriuretic Peptide 1296 H (<100) pg/mL Total Protein 5.8 L (6.5-8.0) g/dL Albumin 2.2 L (3.5-5.0) g/dL 04/11/21 Range/Units 11:50 RBC (4.60-5.80) X10*6/uL Hgb (14.0-18.0) g/dl Hct (42-52) % MCV (80-98) fL MCH (27.0-33.0) pg RDW (11.0-16.0) % Plt Count (160-400) X10*3/uL Potassium (3.3-5.1) mmol/L Chloride (96-108) mmol/L Carbon Dioxide (22-29) mmol/L BUN (9-16) mg/dL Creatinine (0.5-1.4) mg/dL POC Glucose 143 H (60-115) mg/dL Fasting Glucose (60-99) mg/dL Calcium (8.4-10.2) mg/dL Total Bilirubin (0.0-1.0) mg/dL Direct Bilirubin (0.0-0.5) mg/dL AST (5-37) U/L Alkaline Phosphatase (39-117) U/L B-Natriuretic Peptide (<100) pg/mL Total Protein (6.5-8.0) g/dL Albumin (3.5-5.0) g/dL Short CBC 04/11/21 Range/Units 06:16 WBC 5.3 (4.8-10.8) X10*3/uL Hgb 9.8 L (14.0-18.0) g/dl Hct 28.9 L (42-52) % Plt Count 128 L (160-400) X10*3/uL BMP 04/11/21 06:16 Sodium 137 Potassium 2.8 L Chloride 93 L Carbon Dioxide 32 H BUN 44 H Creatinine 2.10 H Calcium 7.9 L Liver Function 04/11/21 Range/Units 06:16 Total Bilirubin 5.0 H (0.0-1.0) mg/dL Direct Bilirubin 3.2 H (0.0-0.5) mg/dL AST 75 H (5-37) U/L ALT 32 (0-40) U/L Alkaline Phosphatase 144 H D (39-117) U/L Albumin 2.2 L (3.5-5.0) g/dL Urine 03/26/21 03/31/21 Range/Units 18:32 06:00 Urine Color YELLOW DK YELLOW Urine Appearance CLEAR HAZY Urine pH 6.0 5.5 (5.0-8.0) Ur Specific [place] 1.025 1.025 (1.005-1.025) Urine Protein 1+ H 1+ H (NEG-TRACE) MG/DL Urine Glucose (UA) NEG NEG (NEG) MG/DL All other labs normal. Assessment and Plan (1) Venous bleed: Status: Acute The area that had blood earlier this currently dry and not bleeding. This appears to be a hemorrhagic superficial skin bulla that may have ruptured earlier today. There are no obvious lesions or any induration at this time. He does not appear to require any surgical intervention to control bleeding nor to remove a lesion at this time. He may keep this current dressing on for at least 24 hours. This may be changed daily. Thank you for the courtesy of the referral. Procedures Date of Service Date of Service: 04/11/21
[2021-04-11 16:27] LABS: Glucose, Whole Blood 205 mg/dL (60-115)
[2021-04-11] MEDS: Insulin Lispro 100 UNIT/ML 3 ML VIAL SUBCUT ×2 (16:44→21:40)
[2021-04-11 19:59] LABS: Glucose, Whole Blood 192 mg/dL (60-115)
[2021-04-11] MEDS: Benzonatate 100 MG CAPSULE PO (21:40)
[2021-04-11] MEDS: Torsemide 20 MG TABLET PO (21:40)
[2021-04-12 03:49] VITALS: BP 103/53; PULSE 67; RESP 18; TEMP 36.6; O2SAT 91
[2021-04-12] MEDS: Omeprazole 20 MG CAPSULE.DR PO (05:40)
[2021-04-12 05:52] VITALS: BMI 28.2
[2021-04-12 07:10] VITALS: BP 110/56; PULSE 66; RESP 16; TEMP 36.9; O2SAT 91
[2021-04-12 07:43] LABS: Glucose, Whole Blood 137 mg/dL (60-115)
[2021-04-12 07:59] LABS: Anion Gap 14 (12-20); Blood Urea Nitrogen 43 mg/dL (9-16); Carbon Dioxide 31 mmol/L (22-29); Chloride 94 mmol/L (96-108); Creatinine Clr Calc Pharmacy 28.5; Estimated Glomerular Filt Rate 30; Glucose Fasting 145 mg/dL (60-99); Magnesium 2.2 mg/dL (1.6-2.6); Potassium 3.5 mmol/L (3.3-5.1); Sodium 135 mmol/L (135-145)
[2021-04-12] MEDS: Torsemide 20 MG TABLET PO (09:30)
[2021-04-12] MEDS: 0.9 % Sodium Chloride Flush 3 ML SYRINGE IVFLUSH (09:30)
[2021-04-12 09:35] VITALS: BP 110/56; PULSE 66
[2021-04-12] MEDS: Metoprolol Tartrate 12.5 MG HALFTAB PO (09:35)
[2021-04-12] MEDS: Nystatin Powder 15 GM BOTTLE 1 APPL TOPICAL (09:35)
[2021-04-12] MEDS: Cholecalciferol (Vitamin D3) 25 MCG TABLET PO (09:35)
[2021-04-12] MEDS: Pramoxine HCl 1 % Rectal Foam 15 GM 1 APPL PR (09:36)
[2021-04-12 11:13] LABS: Glucose, Whole Blood 167 mg/dL (60-115)
--- NOTE | 2021-04-12 11:13 | MHC.CM.PN ---
Patient has been medically cleared for dc to [facility] today. Patient will dc to [facility] today at 2PM, via [facility]. Patient and his /Sallie @ [phone] are aware of and in agreement with the dc plan. Last IMM addressed on 04/10/21.
--- NOTE | 2021-04-12 11:14 | P.DS_ITS ---
DS: Providers Provider Date of Service: 04/12/21 Date of admission: 03/26/21 17:15 Primary care physician: SAMUEL Ye Consults: 03/26/21 15:24 Consult to Gastroenterology Routine Consulting Provider: Kate Snow Reason for consultation: GIB Has provider been notified: Yes 03/26/21 17:15 Consult to Gastroenterology Routine Consulting Provider: Xuan Sandhu Reason for consultation: GI bleed Has provider been notified: No 03/29/21 13:43 Consult to Cardiology Routine Consulting Provider: Jack Cronin Reason for consultation: abnormal LFTs ?r/t amiodorone Has provider been notified: No 04/02/21 08:26 Consult to Nephrology Routine Consulting Provider: Orestes Jenkins Reason for consultation: hyponatremia 04/03/21 07:37 Consult to Cardiology Routine Consulting Provider: Kyler Horn Reason for consultation: CHF Has provider been notified: No DS: Diagnosis Discharge Diagnosis (1) Venous bleed: Status: Acute (2) Acute congestive heart failure: Status: Acute (3) Elevated liver enzymes: Status: Acute DS: Summary Hospital Course Hospital Course: Patient prolonged course, for full summary please see medical record. Patient was admitted for complaints of lower GI bleed found to have acute blood loss anemia, required multiple blood transfusions. Underwent EGD which showed mild gave, varices, candidiasis and colonoscopy which showed active bleeding from radiation proctitis. Recommendations were for Proctofoam b.i.d. for 4 weeks. His hemoglobin remained stable the rest of course. Course was then complicated by acute on chronic heart failure with preserved ejection fraction and moderate aortic stenosis and grade 2 diastolic dysfunction. Patient was diuresed with IV Lasix and metolazone. Symptoms significantly improved and he was transitioned back to p.o. torsemide. Patient had acute kidney injury on CKD 4. It was 3.31 on admission, creatinine down to 2.15 at discharge. For patient's atrial fibrillation is metoprolol was decreased to Lopressor 12.5 mg b.i.d., He is not on anticoagulation due to GI bleed, per GI okay to rechallenge however patient is not interested. Patient was noted to have elevated transaminases and bilirubin. This was felt to be possibly due to amiodarone toxicity which was discontinued. Patient is now medically stable and will be [facility] to [facility]. Time Spent with Patient Time attestation: Total time spent providing and/or coordinating discharge services: Discharge coordination time: Greater than 30 minutes Quality: Stroke Does the patient have a stroke diagnosis?: No Physical Exam Vital Signs: Vital Signs: Last Vital Signs Temp 98.4 F 04/12/21 07:10 Pulse 66 04/12/21 09:35 Resp 16 04/12/21 07:10 BP 110/56 L 04/12/21 09:35 Pulse Ox 91 L 04/12/21 07:10 Body Mass Index 28.2 Const Other:?Appears jaundiced General:?comfortable and no acute distress Orientation/consciousness:?patient oriented x3 Neck Neck:?Yes no lymphadenopathy Resp Auscultation:?clear to auscultation bilaterally Cardio Rhythm:?abnormal rhythm GI Palpation (GI):?Soft to palpation, nontender and no guarding Other:?Scrotal skin on the left- stigmata of a recent skin break, no active bleeding, no cellulitis, no induration Neuro General:?patient oriented x3 DS: Data Data Completed and Pending Completed studies during hospitalization [Text1]: Procedures Excision of Cecum, Via Natural or Artificial Opening Endoscopic, Diagnostic (10/03/20) Excision of Rectum, Via Natural or Artificial Opening Endoscopic, Diagnostic (10/03/20) Inspection of Upper Intestinal Tract, Via Natural or Artificial Opening Endoscopic (10/03/20) Transfusion of Nonautologous Red Blood Cells into Peripheral Vein, Percutaneous Approach (10/03/20) Labs on day of discharge: Laboratory Results - last 24 hr 04/11/21 04/11/21 04/11/21 11:50 16:17 19:29 Sodium Potassium Chloride Carbon Dioxide Anion Gap BUN Creatinine Estim Creat Clear Calc Estimated GFR POC Glucose 143 H 205 H 192 H Fasting Glucose Calcium Magnesium 04/12/21 04/12/21 04/12/21 05:55 07:15 11:01 Sodium 135 Potassium 3.5 D Chloride 94 L Carbon Dioxide 31 H Anion Gap 14 BUN 43 H Creatinine 2.15 H Estim Creat Clear Calc 28.5 Estimated GFR 30 POC Glucose 137 H 167 H Fasting Glucose 145 H Calcium 8.0 L Magnesium 2.2 Discharge Plan Discharge Patient Disposition: [facility] Discharge Diagnosis: gi bleed, chf Referrals: [facility] [place] [Outside] - 1 Week Jewel Mosquera FNP- [Primary Care Provider] - 1 Week Discharge Medications: New metoprolol tartrate 25 mg tablet 12.5 mg PO BID Qty: 60 RF: 0 Continued omeprazole 20 mg capsule,delayed release(DR/EC) 20 mg PO DAILY Qty: 90 RF: 3 (DME) pen needle, diabetic [BD Ultra-Fine Mini Pen Needle] 31 gauge x 3/16 needle See Rx Instructions .ROUTE .MEDSUPPLY Qty: 100 RF: 0 zinc sulfate 50 mg zinc (220 mg) tablet 50 mg PO BID Qty: 60 RF: 0 (DME) lancets [OneTouch Delica Plus Lancet] 30 gauge misc See Rx Instructions .Route Qty: 300 RF: 0 (DME) OneTouch Verio test strips Strip See Rx Instructions .ROUTE .MEDSUPPLY Qty: 3 RF: 3 vitamin A 10,000 unit capsule 1 cap PO DAILY Qty: 28 RF: 0 Tresiba FlexTouch U-100 100 unit/mL (3 mL) insulin pen 30 unit subcut DAILY@1700 RF: 0 Tradjenta 5 mg tablet 1 tab PO DAILY RF: 0 acetaminophen 325 mg Tablet 650 mg PO Q4H PRN (Reason: Pain (Scale Score 1-3)) RF: 0 cetirizine 5 mg Tablet 5 mg PO BEDTIME RF: 0 dextrose [Glucose Gel] 40 % Gel 10 g PO Q15M PRN (Reason: Hypoglycemia) RF: 0 hydrocortisone [Procto-Med HC] 2.5 % Cream With Perineal Applicator [address] DAILY PRN (Reason: Hemorrhoids) RF: 0 cholecalciferol (vitamin D3) 25 mcg (1,000 unit) Tablet 25 mcg PO DAILY RF: 0 omega 6-zml-vsz-fish oil [Fish Oil] 1,200 (144-216) mg capsule 1 cap PO DAILY RF: 0 zolpidem [Ambien] 5 mg tablet 5 mg PO BEDTIME PRN (Reason: sleep) Qty: 90 RF: 0 torsemide 20 mg tablet 20 mg PO BID RF: 0 polyethylene glycol 3350 [Miralax] 17 gram/dose powder 17 g PO DAILY RF: 0 Discontinued metoprolol succinate 100 mg Tablet Extended Release 24 Hr 100 mg PO DAILY RF: 0 cephalexin 500 mg Capsule 500 mg PO BID RF: 0 amiodarone 200 mg tablet 200 mg PO DAILY RF: 0 Discharge Orders: Discharge Order (Routine); Ordered 04/12/21 Ordered By: Joshua Snow Activity on Discharge: As tolerated Stand Alone Forms: Patient Portal Discharge page Care Plan Goals: recovery Health Concerns: chf, gi bleed, hepatitis Plan of Treatment: stop amio, decrease metoprolol, rehab Assessment: see above
[2021-04-12 11:36] VITALS: BP 113/57; PULSE 65; RESP 16; O2SAT 93
[2021-04-12] MEDS: Insulin Lispro 100 UNIT/ML 3 ML VIAL SUBCUT (12:32)
[2021-04-12 12:33] LABS: COVID-19 Test Negative (Negative)
== END 2021-04-12 14:51 | disposition skilled nursing facility (03) | DRG 377 ==
LOC: HO.ED 15:08 → HO.EDOVER 17:26 → HO.IMC 23:10
PROVIDERS: Family Medicine; Internal Medicine Gastroenterology; Nurse Practitioner Family; Physician Assistant Medical; Admitting Provider Nurse Practitioner Acute Care; Emergency Provider Emergency Medicine; PCP Nurse Practitioner Family; Visit Provider Internal Medicine
PROC: 0DJD8ZZ Inspection of Lower Intestinal Tract, Via Natural or Artificial Opening Endoscopic (ICD-10-PCS; CPT 45378; principal; 2021-03-28 12:40)
DX: K57.31 Diverticulosis of large intestine without perforation or abscess with bleeding (principal); I50.33 Acute on chronic diastolic (congestive) heart failure; D62 Acute posthemorrhagic anemia; I85.00 Esophageal varices without bleeding; B37.81 Candidal esophagitis; N18.4 Chronic kidney disease, stage 4 (severe); I13.0 Hypertensive heart and chronic kidney disease with heart failure and stage 1 through stage 4 chronic kidney disease, or unspecified chronic kidney disease; E87.1 Hypo-osmolality and hyponatremia; K62.7 Radiation proctitis; K31.811 Angiodysplasia of stomach and duodenum with bleeding; I48.0 Paroxysmal atrial fibrillation; E11.22 Type 2 diabetes mellitus with diabetic chronic kidney disease; R94.31 Abnormal electrocardiogram [ECG] [EKG]; D69.6 Thrombocytopenia, unspecified; K73.9 Chronic hepatitis, unspecified; R23.8 Other skin changes; I35.0 Nonrheumatic aortic (valve) stenosis; I49.5 Sick sinus syndrome; K64.4 Residual hemorrhoidal skin tags; K63.5 Polyp of colon; Z20.822 Contact with and (suspected) exposure to COVID-19; Z95.0 Presence of cardiac pacemaker; Z87.891 Personal history of nicotine dependence; Z79.899 Other long term (current) drug therapy
CPT/HCPCS: 36415; 36430; 70450; 71045; 80048; 80076; 81001; 82272; 82436; 82947; 83010; 83605; 83615; 83690; 83735; 83880; 83930; 83935; 84133; 84300; 84484; 85007; 85014; 85018; 85025; 85027; 85610; 85730; 86850; 86900; 86901; 86923; 87635; 93005; 93306; 96360; 97110; 97116; 97162; 99284; 99291; J0696; J1940; J2405; P9016

== ENCOUNTER 2021-04-28 03:52 | Inpatient (IN) | payer MEDICARE, SELFPAY ==
[2021-04-28] VITALS (9 sets, daily range): BP systolic 93–138; BP diastolic 37–90; PULSE 60–122; RESP 12–18; TEMP 36.3–36.7; O2SAT 94–97; BMI 27.2
--- NOTE | ~2021-04-28 | US_ITS ---
EXAMINATION: US LIVER BIOPSY CLINICAL INFORMATION: Liver failure. COMPARISON: None. TECHNIQUE: Following explaining ultrasound-guided liver biopsy procedure, benefits and risks, a written consent was obtained. Patient was placed supine on ultrasound stretcher and preliminary ultrasound imaging was obtained and recorded through the liver. An optimal site was selected along the right lateral upper abdomen and the site was marked. The marked site was cleaned and draped with 2% chlorhexidine solution. 1% lidocaine was injected at the puncture site. Through a small skin incision, a 20-gauge guide needle was advanced into the right hepatic lobe. Coaxially, a biopsy gun was inserted and a 2-pass core biopsy of the liver was performed. Adequate sample was collected. The guide needle was withdrawn and complete hemostasis was achieved at the puncture site. Sterile dressing was applied postprocedure. Patient tolerated the procedure extremely well. Conscious sedation was administered by IR nursing and patient monitored during the exam. SEDATION TIME: 10 minutes. FINDINGS: On preliminary ultrasound imaging, there is diffuse echogenic liver. No focal lesion seen. No intrahepatic ductal dilatation. Ultrasound-guided right hepatic lobe. 2 core biopsies performed. Adequate tissue sampling was collected and sent to lab for further analysis. US/US biopsy liver IMPRESSION: Successful ultrasound-guided right hepatic lobe core biopsy performed x 2.
--- NOTE | ~2021-04-28 | XR_ITS ---
EXAMINATION: XR CHEST CLINICAL INFORMATION: Cough COMPARISON: 04/01/2021 TECHNIQUE: Frontal view of the chest was obtained. FINDINGS: Stably enlarged cardiac silhouette. Pulmonary venous congestion without overt edema. There is prominence of the axial interstitium with bilateral perihilar bronchial wall thickening. Patchy opacity at left lung base partially obscures left hemidiaphragm. No pleural effusion or pneumothorax. XR/XR chest 1V IMPRESSION: * Bilateral parahilar bronchial wall thickening and prominence of the axial interstitium could be compatible with bronchitis or early interstitial edema. * Stably enlarged cardiac silhouette with pulmonary venous congestion. * Focal opacity at the left lung base partially obscuring the left hemidiaphragm could represent subsegmental atelectasis or infiltrate.
--- NOTE | 2021-04-28 04:37 | ECG_ITS ---
Test Reason : GENERAL Blood Pressure : / mmHG Vent. Rate : 074 BPM Atrial Rate : 000 BPM P-R Int : 000 ms QRS Dur : 098 ms QT Int : 520 ms P-R-T Axes : 000 004 164 degrees QTc Int : 577 ms Normal sinus rhythm with 1st degree A-V block RSR' or QR pattern in V1 suggests right ventricular conduction delay ST & T wave abnormality, consider inferior ischemia ST & T wave abnormality, consider anterolateral ischemia Prolonged QT Abnormal ECG No significant changes seen Referred By: Ana Santo Electronically Signed By:EMERY CEVALLOS MD
[2021-04-28 05:36] LABS: Basophils Percent Auto 0.3 % (0-2); Eosinophils Absolute Auto 0.1 X10*3/uL (0.0-0.4); Eosinophils Percent Auto 1.2 % (0-4); Hematocrit 25.3 % (42-52); Hemoglobin 8.3 g/dl (14.0-18.0); Imm Gran Abs Auto 0.02 X10*3/uL (0.00-0.03); Imm Gran Pct Auto 0.3 % (0.0-0.4); Lymphocytes Absolute Auto 0.6 X10*3/uL (1.2-4.9); Lymphocytes Percent Auto 9.8 % (20-40); MANUAL DIFF FLAG NO; Mean Corpuscular HGB Conc 32.8 g/dl (31.0-36.0); Mean Corpuscular Volume 106.8 fL (80-98); Mean Platelet Volume 10.1 fL (9.4-12.4); Monocytes Absolute Auto 0.8 X10*3/uL (0.1-1.2); Monocytes Percent Auto 14.3 % (2-11); Neutrophils Absolute Auto 4.3 X10*3/uL (2.0-8.3); Neutrophils Percent Auto 74.1 % (45-73); Platelet Count 116 X10*3/uL (160-400); Red Blood Count 2.37 X10*6/uL (4.60-5.80); Red Cell Distribution Width 19.4 % (11.0-16.0); White Blood Count 5.8 X10*3/uL (4.8-10.8)
[2021-04-28 05:50] LABS: INTERNATIONAL NORM RATIO 1.4 (0.9-1.1); Prothrombin Time 15.5 SEC (9.9-13.0)
[2021-04-28 05:54] LABS: Alanine Aminotransferase 23 U/L (0-40); Albumin Level 2.4 g/dL (3.5-5.0); Alkaline Phosphatase 131 U/L (39-117); Anion Gap 16 (12-20); Aspartate Amino Transferase 73 U/L (5-37); Bilirubin Total 6.3 mg/dL (0.0-1.0); Blood Urea Nitrogen 31 mg/dL (9-16); Calcium 8.1 mg/dL (8.4-10.2); Carbon Dioxide 24 mmol/L (22-29); Chloride 103 mmol/L (96-108); Creatinine Clr Calc Pharmacy 22.3; Estimated Glomerular Filt Rate 25; Glucose Random 127 mg/dL (60-115); Potassium 3.7 mmol/L (3.3-5.1); Sodium 139 mmol/L (135-145); Total Protein 6.4 g/dL (6.5-8.0)
[2021-04-28 05:56] LABS: B Type Natriuretic Peptide 1661 pg/mL (<100)
[2021-04-28 06:18] LABS: Influenza A PCR NEGATIVE (Negative); Influenza B PCR NEGATIVE (Negative); Resp Syncy Virus RNA Qual PCR NEGATIVE (Negative); SARS COV2 PCR INHOUSE NEGATIVE (Negative)
--- NOTE | 2021-04-28 06:27 | ED_ITS ---
HPI - General Adult General Chief complaint: General Medical Stated complaint: LOW O2 SAT Time Seen by Provider: 04/28/21 04:37 Source: patient Mode of arrival: EMS History of Present Illness HPI narrative: 81-year-old male brought in by EMS from rehab facility for staff complaints low oxygenation. On questioning the patient patient denies any feelings of shortness of breath, chest pain/palpitations, dizziness, headache, abdominal pain/nausea/vomiting/diarrhea. Patient also denies any sore throat, cough, fevers, or chills. Related Data Home Medications Medication Instructions Recorded Confirmed omega 2-nck-lne-fish oil 1,200 mg 1 cap PO DAILY cap 05/29/20 03/26/21 (144 mg-216 mg) capsule (Fish Oil) torsemide 20 mg tablet 20 mg PO BID 10/03/20 03/26/21 polyethylene glycol 3350 17 17 g PO DAILY 12/12/20 03/26/21 gram/dose oral powder (Miralax) insulin degludec 100 unit/mL (3 30 unit SUBCUT DAILY@1700 01/08/21 03/26/21 mL) subcutaneous pen (Tresiba FlexTouch U-100 insulin) acetaminophen 325 mg tablet 650 mg PO Q4H PRN 03/26/21 03/26/21 cetirizine 5 mg tablet 5 mg PO BEDTIME 03/26/21 03/26/21 cholecalciferol (vitamin D3) 25 25 mcg PO DAILY 03/26/21 03/26/21 mcg (1,000 unit) tablet dextrose 40 % oral gel (Glucose 10 g PO Q15M PRN 03/26/21 03/26/21 Gel) hydrocortisone 2.5 % topical cream 1 appl NV DAILY PRN 03/26/21 03/26/21 with perineal applicator (Procto-Med HC) linagliptin 5 mg tablet (Tradjenta) 1 tab PO DAILY 03/26/21 03/26/21 Previous Rx's Medication Instructions Recorded zolpidem 5 mg tablet (Ambien) 5 mg PO BEDTIME PRN #90 tab 05/29/20 omeprazole 20 mg capsule,delayed 20 mg PO DAILY #90 cap 11/13/20 release pen needle, diabetic 31 gauge x #100 ea 02/20/2109/26 (BD Ultra-Fine Mini Pen Needle) zinc sulfate 50 mg zinc (220 mg) 50 mg PO BID #60 tab 03/01/21 tablet blood sugar diagnostic (O&P ProTouch #3 03/05/21 Verio test strips) lancets 30 gauge (OneTouch Delica #300 ea 03/05/21 Plus Lancet) vitamin A 10,000 unit capsule 1 cap PO DAILY #28 cap 03/27/21 metoprolol tartrate 25 mg tablet 12.5 mg PO BID #60 tab 04/12/21 pramoxine 1 % topical foam 1 appl NV BID #15 g 04/12/21 Allergies Allergy/AdvReac Type Severity Reaction Status Date / Time No Known Allergies Allergy Verified 03/17/21 17:45 [No Known Allergies*] Review of Systems Review of Systems: Pertinent positives and negatives as stated in HPI 10 point review of systems is otherwise negative. [facility] Past Medical History Source: nursing notes reviewed Medical History AAA (abdominal aortic aneurysm) Abdominal aortic aneurysm Atrial fibrillation Chronic kidney disease (CKD) stage G4/A1, severely decreased glomerular filtration rate (GFR) between 15-29 mL/min/1.73 square meter and albuminuria creatinine ratio less than 30 mg/g Congestive heart failure Coronary artery disease History of CVA (cerebrovascular accident) History of prostate cancer Hypercholesterolemia Hypertension Insomnia Legally blind in right eye, as defined in [place] Obesity (BMI 30-39.9) Peripheral vascular disease Renal artery stenosis Retinal detachment Sick sinus syndrome Type 2 diabetes mellitus with hyperglycemia Venous bleed Surgical History H/O colonoscopy H/O esophagogastroduodenoscopy History of cataract surgery History of pacemaker History of prostatectomy History of thumb surgery History of tonsillectomy Hx of cystoscopy Renal calculi Family History Family History Father Heart problem Diabetes Prostate cancer Mother Acute leukemia Social History Social History Household Members: Other Housing: [facility] Do you presently have visiting nurse or other home services: No Alcohol intake: never Patient Tobacco Use Status: Former Tobacco user Quit Date: 2004 Years Smoked: Cannot remember e-Cigarette/Vaping Use: Never Used Second Hand Smoke Exposure: No Advance Directives: No Advance Directives Date on File: 10/06/20 service: Yes (UNSURE ABOUT CONNECTION) Current occupational status: retired Physical Exam Vital Signs: Vital Signs: Last Vital Signs Temp 97.7 F 04/28/21 05:39 Pulse 73 04/28/21 05:39 Resp 15 04/28/21 05:39 BP 98/44 L 04/28/21 05:39 Pulse Ox 95 04/28/21 05:39 Body Mass Index 27.2 VITAL SIGNS: Reviewed. GENERAL: Well developed, well nourished, in no acute distress. HEAD: Normocephalic/atraumatic EYES: PERRLA, EOMI with icterus OROPHARYNX: no oral lesions noted, posterior pharynx clear NECK: Supple, no adenopathy LUNGS: Good inspiratory effort and noted rales without wheeze, no tachypnea. SpO2<95> on room air CARDIOVASCULAR: Regular rate and rhythm without noted murmurs, no JVD and no bilateral lower extremity swelling ABDOMEN: Soft, non-tender, non-distended with bowel sounds. MUSCULOSKELETAL: No tenderness, deformities, or effusions noted on gross inspection. EXTREMITIES: No cyanosis, clubbing or edema. SKIN: Inspection of the skin reveals no rashes,jaundice NEUROLOGIC: Alert and oriented x 4. Strength and sensation to light touch were g rossly intact x 4. Course Course Course Narrative: 81-year-old male with history and clinical presentation in consistent with reports of patient's hypoxic episode and patient very upset that he was brought into the emergency room. He is however quite jaundice, but states that this is been an ongoing problem and he recently spent multiple days in this hospital for bleeding and subsequent weakness. Review of all investigations consistent with mild CHF with borderline blood pressure and diuretics were not administered anemia has mildly worsened with an BHUMIKA. This case was discussed with the inpatient hospitalist. Medical Decision Making Lab Data Result diagrams: 04/28/21 05:31 04/28/21 05:31 Labs: Lab Results 04/28/21 04/28/21 04/28/21 Range/Units 05:31 05:31 05:31 WBC 5.8 (4.8-10.8) X10*3/uL RBC 2.37 L (4.60-5.80) X10*6/uL Hgb 8.3 L (14.0-18.0) g/dl Hct 25.3 L (42-52) % MCV 106.8 H (80-98) fL MCH 35.0 H (27.0-33.0) pg MCHC 32.8 (31.0-36.0) g/dl RDW 19.4 H (11.0-16.0) % Plt Count 116 L (160-400) X10*3/uL MPV 10.1 (9.4-12.4) fL Immature Gran % (Auto) 0.3 (0.0-0.4) % Neut % (Auto) 74.1 H (45-73) % Lymph % (Auto) 9.8 L (20-40) % [place] % (Auto) 14.3 H (2-11) % Eos % (Auto) 1.2 (0-4) % Baso % (Auto) 0.3 (0-2) % Lymph # (Auto) 0.6 L (1.2-4.9) X10*3/uL [place] # (Auto) 0.8 (0.1-1.2) X10*3/uL Eos # (Auto) 0.1 (0.0-0.4) X10*3/uL Baso # (Auto) 0.0 (0.0-0.2) X10*3/uL Abs Immat Gran (auto) 0.02 (0.00-0.03) X10*3/uL Absolute Neuts (auto) 4.3 (2.0-8.3) X10*3/uL Absolute Nucleated RBC 0.000 (0.0-0.012) X10*3/uL Nucleated RBC % (auto) 0.0 (0.0-0.2) /100WBC PT (9.9-13.0) SEC INR (0.9-1.1) Sodium 139 (135-145) mmol/L Potassium 3.7 (3.3-5.1) mmol/L Chloride 103 (96-108) mmol/L Carbon Dioxide 24 (22-29) mmol/L Anion Gap 16 (12-20) BUN 31 H (9-16) mg/dL Creatinine 2.51 H (0.5-1.4) mg/dL Estim Creat Clear Calc 22.3 Estimated GFR 25 Random Glucose 127 H (60-115) mg/dL Calcium 8.1 L (8.4-10.2) mg/dL Magnesium 2.6 (1.6-2.6) mg/dL Total Bilirubin 6.3 H (0.0-1.0) mg/dL AST 73 H (5-37) U/L ALT 23 (0-40) U/L Alkaline Phosphatase 131 H (39-117) U/L B-Natriuretic Peptide 1661 H (<100) pg/mL Total Protein 6.4 L (6.5-8.0) g/dL Albumin 2.4 L (3.5-5.0) g/dL Coronavirus (PCR) (Negative) Influenza Type A (PCR) (Negative) Influenza Type B (PCR) (Negative) RSV RNA Qual (PCR) (Negative) 04/28/21 04/28/21 Range/Units 05:31 05:39 WBC (4.8-10.8) X10*3/uL RBC (4.60-5.80) X10*6/uL Hgb (14.0-18.0) g/dl Hct (42-52) % MCV (80-98) fL MCH (27.0-33.0) pg MCHC (31.0-36.0) g/dl RDW (11.0-16.0) % Plt Count (160-400) X10*3/uL MPV (9.4-12.4) fL Immature Gran % (Auto) (0.0-0.4) % Neut % (Auto) (45-73) % Lymph % (Auto) (20-40) % [place] % (Auto) (2-11) % Eos % (Auto) (0-4) % Baso % (Auto) (0-2) % Lymph # (Auto) (1.2-4.9) X10*3/uL [place] # (Auto) (0.1-1.2) X10*3/uL Eos # (Auto) (0.0-0.4) X10*3/uL Baso # (Auto) (0.0-0.2) X10*3/uL Abs Immat Gran (auto) (0.00-0.03) X10*3/uL Absolute Neuts (auto) (2.0-8.3) X10*3/uL Absolute Nucleated RBC (0.0-0.012) X10*3/uL Nucleated RBC % (auto) (0.0-0.2) /100WBC PT 15.5 H (9.9-13.0) SEC INR 1.4 H (0.9-1.1) Sodium (135-145) mmol/L Potassium (3.3-5.1) mmol/L Chloride (96-108) mmol/L Carbon Dioxide (22-29) mmol/L Anion Gap (12-20) BUN (9-16) mg/dL Creatinine (0.5-1.4) mg/dL Estim Creat Clear Calc Estimated GFR Random Glucose (60-115) mg/dL Calcium (8.4-10.2) mg/dL Magnesium (1.6-2.6) mg/dL Total Bilirubin (0.0-1.0) mg/dL AST (5-37) U/L ALT (0-40) U/L Alkaline Phosphatase (39-117) U/L B-Natriuretic Peptide (<100) pg/mL Total Protein (6.5-8.0) g/dL Albumin (3.5-5.0) g/dL Coronavirus (PCR) NEGATIVE (Negative) Influenza Type A (PCR) NEGATIVE (Negative) Influenza Type B (PCR) NEGATIVE (Negative) RSV RNA Qual (PCR) NEGATIVE (Negative) Discharge Plan Discharge Clinical Impression: CHF exacerbation, Anemia, BHUMIKA (acute kidney injury) Patient Disposition: Admitted As Inpatient Prescriptions: No Action omeprazole 20 mg capsule,delayed release(DR/EC) 20 mg PO DAILY Qty: 90 RF: 3 (DME) pen needle, diabetic [BD Ultra-Fine Mini Pen Needle] 31 gauge x 3/16 needle See Rx Instructions .ROUTE .MEDSUPPLY Qty: 100 RF: 0 zinc sulfate 50 mg zinc (220 mg) tablet 50 mg PO BID Qty: 60 RF: 0 (DME) lancets [OneTouch Delica Plus Lancet] 30 gauge misc See Rx Instructions .Route Qty: 300 RF: 0 (DME) OneTouch Verio test strips Strip See Rx Instructions .ROUTE .MEDSUPPLY Qty: 3 RF: 3 vitamin A 10,000 unit capsule 1 cap PO DAILY Qty: 28 RF: 0 Tresiba FlexTouch U-100 100 unit/mL (3 mL) insulin pen 30 unit subcut DAILY@1700 RF: 0 Tradjenta 5 mg tablet 1 tab PO DAILY RF: 0 acetaminophen 325 mg Tablet 650 mg PO Q4H PRN (Reason: Pain (Scale Score 1-3)) RF: 0 cetirizine 5 mg Tablet 5 mg PO BEDTIME RF: 0 dextrose [Glucose Gel] 40 % Gel 10 g PO Q15M PRN (Reason: Hypoglycemia) RF: 0 hydrocortisone [Procto-Med HC] 2.5 % Cream With Perineal Applicator 1 appl NV DAILY PRN (Reason: Hemorrhoids) RF: 0 cholecalciferol (vitamin D3) 25 mcg (1,000 unit) Tablet 25 mcg PO DAILY RF: 0 metoprolol tartrate 25 mg tablet 12.5 mg PO BID Qty: 60 RF: 0 pramoxine 1 % Foam 1 appl NV BID Qty: 15 RF: 0 omega 6-lro-ecc-fish oil [Fish Oil] 1,200 (144-216) mg capsule 1 cap PO DAILY RF: 0 zolpidem [Ambien] 5 mg tablet 5 mg PO BEDTIME PRN (Reason: sleep) Qty: 90 RF: 0 torsemide 20 mg tablet 20 mg PO BID RF: 0 polyethylene glycol 3350 [Miralax] 17 gram/dose powder 17 g PO DAILY RF: 0
[2021-04-28 06:51] LABS: Magnesium 2.6 mg/dL (1.6-2.6)
--- NOTE | 2021-04-28 08:57 | PC.NURSE ---
pt is a/o x 3, no sob/yordy noted, non-prod cough. pt skin is slightly jaundiced. voided 200ml in urinal and xlarge amt urine on bed sheets and hosp garmentmd aware.
--- NOTE | 2021-04-28 10:07 | PHA.MEDREC ---
Pharmacy Consult ? Medication Reconciliation Pharmacy has completed the medication reconciliation. There are no remarkable issues for provider's attention. Patient came from [facility][1]. Jade Bauer, RdD
--- NOTE | 2021-04-28 12:03 | P.HPHOSP_ITS ---
History of Present Illness Date of Service: 04/28/21 Chief Complaint: hypoxia 81M sent in from rehab facility for hypoxia. unclear the exact measurment. patient himself is vague but denies sob or any other symptoms. 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 in ED patient no longer hypoxic but noted to have bilateral opacities on CXR, elevated BNP, concern for chf. Review of Systems Review of Systems: Constitutional: Denies fever, denies Chills Eyes: denies blurry vision ENT: denies sore throat CVS: denies chest pain Respiratory: Denies dyspnea GI: no abdominal pain : denies dysuria MSK: denies neck pain Skin: denies rash Neuro: denies specific motor weakness Psych: denies suicidal ideation Endocrine: denies heat/cold intolerance Hematologic: denies easy bleeding Allergy: denies hives [facility] Medical History AAA (abdominal aortic aneurysm) Abdominal aortic aneurysm Atrial fibrillation Chronic kidney disease (CKD) stage 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, severely decreased glomerular filtration rate (GFR) between 15-29 mL/min/1.73 square meter and albuminuria creatinine ratio less than 30 mg/g Congestive heart failure Coronary artery disease History of CVA (cerebrovascular accident) History of prostate cancer Hypercholesterolemia Hypertension Insomnia Legally blind in right eye, as defined in [place] Obesity (BMI 30-39.9) Peripheral vascular disease Renal artery stenosis Retinal detachment Sick sinus syndrome Type 2 diabetes mellitus with hyperglycemia Venous bleed Family History Father Heart problem Diabetes Prostate cancer Mother Acute leukemia Pertinent family history: . Surgical History H/O colonoscopy H/O esophagogastroduodenoscopy History of cataract surgery History of pacemaker History of prostatectomy History of thumb surgery History of tonsillectomy Hx of cystoscopy Renal calculi Social History Household Members: Other Housing: [facility] Do you presently have visiting nurse or other home services: No Alcohol intake: never Patient Tobacco Use Status: Former Tobacco user Quit Date: 2004 Years Smoked: Cannot remember e-Cigarette/Vaping Use: Never Used Second Hand Smoke Exposure: No Advance Directives: No Advance Directives Date on File: 10/06/20 service: Yes (UNSURE ABOUT CONNECTION) Current occupational status: retired Meds Allergies Allergy/AdvReac Type Severity Reaction Status Date / Time No Known Allergies Allergy Verified 03/17/21 17:45 [No Known Allergies*] Active Medications: Current Medications Dextrose (Dextrose 50 % 25 Gm/50 Ml Vial) 25 gm IVPUSH Q15M PRN; Protocol PRN Reason: per Hypoglycemia Standing Ord. Docusate Sodium (Docusate Sodium 100 Mg Capsule) 100 mg PO DAILY COUNT [facility]CLUDES [facility] Furosemide (Furosemide 40 Mg/4 Ml Vial) 40 mg IVPUSH BID@0900,1800 [facility]CLUDES [facility]; Protocol Glucose (Glucose Gel 15 Gm Gel..Gram.) 15 gm PO Q15M PRN; Protocol PRN Reason: per Hypoglycemia Standing Ord. Heparin Sodium (Porcine) (Heparin Sodium,Porcine 5,000 Unit/Ml Vial) 5,000 unit SUBCUT Q8H COUNT INCLUDES THE [facility] Hydrocortisone (Hydrocortisone 2.5 % Rectal Cr 30 Gm Tube) 1 appl [place] BID COUNT INCLUDES THE [facility] Insulin Glargine (Insulin Glargine,Hum.Rec.Anlog 100 Unit/Ml 10 Ml Vial) 10 unit SUBCUT BEDTIME JEANETTE Insulin Human Lispro (Insulin Lispro 100 Unit/Ml 3 Ml Vial) 0 unit SUBCUT QIDACHS COUNT INCLUDES THE [facility]; Protocol Loratadine (Loratadine 10 Mg Tablet) 10 mg PO BEDTIME COUNT INCLUDES THE [facility] Metoprolol Tartrate (Metoprolol Tartrate 12.5 Mg Halftab) 12.5 mg PO BID COUNT INCLUDES THE [facility]; Protocol Non-Formulary Medication (Zinc Sulfate) 220 mg PO DAILY COUNT INCLUDES THE [facility] Non-Formulary Medication (Vitamin A) 1 cap PO DAILY COUNT INCLUDES THE [facility] Omeprazole (Omeprazole 40 Mg Capsule.Dr) 40 mg PO DAILY COUNT INCLUDES THE [facility] Pharmacy Consult (Consult Rx Perform Med Rec) 1 each MISCELLANE ONCE PRN PRN Reason: Consult order Polyethylene Glycol (Polyethylene Glycol 3350 17 Gm Powd.Pack) 17 gm PO DAILY COUNT INCLUDES THE [facility] Sodium Chloride (0.9 % Sodium Chloride Flush 3 Ml Syringe) 3 ml IVFLUSH QSHIFT COUNT INCLUDES THE [facility] Vitamin D (Cholecalciferol (Vitamin D3) 25 Mcg Tablet) 25 mcg PO DAILY COUNT INCLUDES THE [facility] Home Medications Medication Instructions Recorded Confirmed Last Taken Type omega 4-zhr-icd-fish oil 1,200 mg 1 cap PO DAILY cap 1104/28/21 03/17/21 History (144 mg-216 mg) capsule (Fish Oil) torsemide 20 mg tablet 20 mg PO BID 10/03/20 04/28/21 03/17/21 History polyethylene glycol 3350 17 17 g PO DAILY 12/12/20 04/28/21 03/17/21 History gram/dose oral powder (Miralax) insulin degludec 100 unit/mL (3 30 unit SUBCUT DAILY@1700 01/08/21 04/28/21 03/17/21 History mL) subcutaneous pen (Tresiba FlexTouch U-100 insulin) acetaminophen 325 mg tablet 650 mg PO Q4H PRN 03/26/21 04/28/21 Unknown History cetirizine 5 mg tablet 5 mg PO BEDTIME 03/26/21 04/28/21 Unknown History cholecalciferol (vitamin D3) 25 25 mcg PO DAILY 03/26/21 04/28/21 Unknown History mcg (1,000 unit) tablet docusate sodium 100 mg capsule 100 mg PO DAILY 04/28/21 04/28/21 Unknown History (Colace) hydrocortisone 2.5 % topical cream 1 appl PA BID 04/28/21 04/28/21 Unknown History with perineal applicator (Procto-Med HC) omeprazole 20 mg capsule,delayed 40 mg PO DAILY 04/28/21 04/28/21 Unknown History release zinc sulfate 220 mg capsule 220 mg PO DAILY 04/28/21 04/28/21 Unknown History Physical Exam Vital Signs and Narrative: Vital Signs: Last Vital Signs Temp 97.7 F 04/28/21 11:19 Pulse 68 04/28/21 11:19 Resp 16 04/28/21 11:19 BP 103/40 L 04/28/21 11:19 Pulse Ox 94 04/28/21 11:19 Body Mass Index 27.2 General: no acute distress HEENT: atraumatic Neck: normal to visual inspection CVS: S1, S2, RRR, murmur Resp: Crackles at bases Chest: non tender GI: soft, non tender, non distended : no CVA tenderness Skin: juandiced Extremities: no edema Neuro: Oriented X3, grossly intact Psych: cooperative Results Labs CBC and Chem 7: 04/28/21 05:31 04/28/21 05:31 Labs: Laboratory Results - last 24 hr 04/28/21 04/28/21 04/28/21 05:31 05:31 05:31 MCV 106.8 H MCH 35.0 H MCHC 32.8 RDW 19.4 H Plt Count 116 L MPV 10.1 Immature Gran % (Auto) 0.3 Neut % (Auto) 74.1 H Lymph % (Auto) 9.8 L [place] % (Auto) 14.3 H Eos % (Auto) 1.2 Baso % (Auto) 0.3 Lymph # (Auto) 0.6 L [place] # (Auto) 0.8 Eos # (Auto) 0.1 Baso # (Auto) 0.0 Abs Immat Gran (auto) 0.02 Absolute Neuts (auto) 4.3 Absolute Nucleated RBC 0.000 Nucleated RBC % (auto) 0.0 PT INR Anion Gap 16 Estim Creat Clear Calc 22.3 Estimated GFR 25 Random Glucose 127 H Calcium 8.1 L Magnesium 2.6 Total Bilirubin 6.3 H AST 73 H ALT 23 Alkaline Phosphatase 131 H B-Natriuretic Peptide 1661 H Total Protein 6.4 L Albumin 2.4 L Coronavirus (PCR) Influenza Type A (PCR) Influenza Type B (PCR) RSV RNA Qual (PCR) 04/28/21 04/28/21 05:31 05:39 MCV MCH MCHC RDW Plt Count MPV Immature Gran % (Auto) Neut % (Auto) Lymph % (Auto) Sevier % (Auto) Eos % (Auto) Baso % (Auto) Lymph # (Auto) [place] # (Auto) Eos # (Auto) Baso # (Auto) Abs Immat Gran (auto) Absolute Neuts (auto) Absolute Nucleated RBC Nucleated RBC % (auto) PT 15.5 H INR 1.4 H Anion Gap Estim Creat Clear Calc Estimated GFR Random Glucose Calcium Magnesium Total Bilirubin AST ALT Alkaline Phosphatase B-Natriuretic Peptide Total Protein Albumin Coronavirus (PCR) NEGATIVE Influenza Type A (PCR) NEGATIVE Influenza Type B (PCR) NEGATIVE RSV RNA Qual (PCR) NEGATIVE Imaging Radiologist's Impressions: Impressions Chest X-Ray 04/28/21 04:37 IMPRESSION: * Bilateral parahilar bronchial wall thickening and prominence of the axial interstitium could be compatible with bronchitis or early interstitial edema. * Stably enlarged cardiac silhouette with pulmonary venous congestion. * Focal opacity at the left lung base partially obscuring the left hemidiaphragm could represent subsegmental atelectasis or infiltrate. Assessment and Plan (1) CHF exacerbation: Status: Acute (2) Anemia: Status: Acute 81M sent in for hypoxia acute hypoxic respiratory failure due to acute on chronic diastolic chf IV lasix, is and os, montior now on room air, requires close inpatient monitoring while diuresing given renal function, hepatic function, and previous need for excalating diuresis on last admission recent echo - 04/03/21 normal EF, pseudonormal filling patter, lvh, g2dd, mod , mild elevated RVSP paroxysmal atrial fibrillation lopressor declined restarting anticoagulation after recent bleed juandice liver grossly normal appearing on recent imaging differential includes hepatic congestion from right sided chf vs amio toxicity diurese, amio was dced last admission, monitor CKD IV stable monitor macrocytic anemia check b12, folate, tsh DM basal bolus insulin mointior poc dvt prophylaxis - heparin sq full code Quality Stroke Does the patient have a stroke diagnosis?: No VTE Prior VTE?: No VTE Risk Level:: Medical - moderate - high VTE Device Contraindication: Treatment Not Indicated VTE Drug Contraindication: N/A - Med Ordered
[2021-04-28] MEDS: Heparin Sodium,Porcine 5,000 UNIT/ML VIAL 5000 UNIT SUBCUT ×2 (15:14→21:36)
--- NOTE | 2021-04-28 17:40 | PC.NURSE ---
pt continues to refuse cath- md aware
[2021-04-28] MEDS: 0.9 % Sodium Chloride Flush 3 ML SYRINGE IVFLUSH (17:44)
[2021-04-28 18:26] LABS: Glucose, Whole Blood 117 mg/dL (60-115)
[2021-04-28 18:32] LABS: Appearance Urine CLEAR; Color Urine DK YELLOW; Glucose Urine UA NEG (NEG); Leukocyte Esterase Urine TRACE (NEG); Nitrite Urine NEG (NEG); UACC Culture Trigger YES; Urine Blood 3+ (NEG); Urine Ketones NEG (NEG); Urine Protein TRACE MG/DL (NEG-TRACE)
[2021-04-28 18:41] LABS: RBC Urine 50-75 /HPF (0)
[2021-04-28 18:42] LABS: Bacteria Urine 2+ /LPF; Squamous Epithelial Cell Urine TRACE /LPF
[2021-04-28] MEDS: Furosemide 40 MG/4 ML VIAL IVPUSH (20:10)
[2021-04-28] MEDS: Insulin Lispro 100 UNIT/ML 3 ML VIAL SUBCUT (21:34)
[2021-04-28] MEDS: Metoprolol Tartrate 12.5 MG HALFTAB PO (21:34)
[2021-04-28] MEDS: Loratadine 10 MG TABLET PO (21:34)
[2021-04-28] MEDS: Insulin Glargine,Hum.rec.anlog 100 UNIT/ML 10 ML VIAL 10 UNIT SUBCUT (21:35)
[2021-04-28 22:19] LABS: Glucose, Whole Blood 84 mg/dL (60-115)
--- NOTE | 2021-04-28 22:30 | PC.NURSE ---
[LATE ENTRY]: 04/28/212044: THIS RN ASKING FOR PCT TO TAKE BLOOD SUGAR ON THIS PATIENT, CONFIRMING PATIENTS NAME AND ROOM NUMBER WITH PCT ORIENTING AND PRECEPTOR FOR THE ORIENTEE. PCT COLLECTING POC OF 254 AND REPORTED IT TO THIS RN. 04/28/212129: THIS RN SPEAKING WITH THE PCT TO CONFIRM THE POC BECAUSE IT HAS NOT BEEN DOCUMENTED IN THE CHART, REMINDING PCT TO RECORD THE BLOOD SUGAR, PCT RESPONDED THAT SHE WAS AND TURNED TO DOCUMENT IT IN THE COMPUTER. PATIENT WAS MEDICATED WITH INSULIN ACCORDING TO SLIDING SCALE PROTOCOL BY THIS RN, FOR A POC OF 254 6 UNITS WAS GIVEN. AFTER SEVERAL MINUTES THIS RN RECORDING THE REPORTED POC IN THE COMPUTER AND WHO IT WAS TAKEN BY AND REPORTED TO. PATIENT WAS GIVEN A BED ASSIGNMENT AND REPORT CALLED AND PATIENT SHORTLY TRANSFERRED [place] [facility] [place]. 04/28/212214 THEN THIS RN TALKING WITH THE PRECEPTOR TO MAKE SURE THAT THEY FOLLOW UP WITH PCT DOCUMENTATION IN THE FUTURE. PRECEPTOR GOING TO TALK WITH THE PCT. PCT STATING SHE NEVER SAW THE ORDER IN THE COMPUTER. THIS RN POINTED OUT THE ORDER TO THE PCT, PCT THEN REPORTING THAT THAT WAS NOT THE PATIENT SHE HAD DONE A BLOOD SUGAR ON, BUT ON SOMEONE WITH A SIMILAR NAME, CONFIRMING WITH POC MACHINE THAT IT WAS A DIFFERENT PATIENT THAT THE BLOOD SUGAR WAS TAKEN ON. THIS RN CALLING BOTH THE RPG PROGRAMMER YUMIKO TOURE, LORENA THE NEW PRIMARY RN ON [facility] CARING FOR PATIENT., AND THE HOSPITALIST DR. SANCHEZ. ORDERS FROM DR. SANCHEZ TO MONITOR BLOOD SUGAR EVERY 2 HOURS FOR 6 HOURS. LORENA TOURE REPORTING TO THIS RN THAT PATIENT WAS ALERT AND EATING A SNACK WITH A POINT OF CARE OF 83 AT 04/28/212229. INCIDENT REPORT FILED OUT PER HOSPITAL POLICY.
[2021-04-29] VITALS (10 sets, daily range): BP systolic 82–116; BP diastolic 34–73; PULSE 61–95; RESP 13–20; TEMP 36.6–36.8; O2SAT 92–98
--- NOTE | 2021-04-29 | ECG_ITS ---
Test Reason : qt Blood Pressure : / mmHG Vent. Rate : 079 BPM Atrial Rate : 079 BPM P-R Int : 248 ms QRS Dur : 108 ms QT Int : 350 ms P-R-T Axes : 079 007 160 degrees QTc Int : 401 ms Sinus rhythm with 1st degree A-V block Marked ST abnormality, possible lateral subendocardial injury RSR' or QR pattern in V1 suggests right ventricular conduction delay Abnormal ECG No significant changes seen Referred By: Joshua Snow Electronically Signed By:EMERY CEVALLOS MD
[2021-04-29 00:22] LABS: Glucose, Whole Blood 101 mg/dL (60-115)
[2021-04-29] MEDS: Heparin Sodium,Porcine 5,000 UNIT/ML VIAL 5000 UNIT SUBCUT ×2 (03:46→11:45)
[2021-04-29 03:53] LABS: Glucose, Whole Blood 66 mg/dL (60-115)
[2021-04-29 05:56] LABS: Glucose, Whole Blood 107 mg/dL (60-115)
--- NOTE | 2021-04-29 06:08 | PC.NURSE ---
when pt arrived to unit this rn made aware that a medication error occurred and pt received 6 units of insulin not intended for him. pt assessed for hypoglycemia, asymptomatic at this time poc taked 83 snack given at this time, md made aware advised to monitor poc thorughout night. 0000 poc was 101 0400 pt 66 juice given poc at 0530 107. will report to oncoming rn
[2021-04-29 07:16] LABS: Hematocrit 23.4 % (42-52); Hemoglobin 7.6 g/dl (14.0-18.0); Mean Corpuscular HGB Conc 32.5 g/dl (31.0-36.0); Mean Corpuscular Hemoglobin 34.4 pg (27.0-33.0); Mean Corpuscular Volume 105.9 fL (80-98); Mean Platelet Volume 10.3 fL (9.4-12.4); Platelet Count 127 X10*3/uL (160-400); Red Blood Count 2.21 X10*6/uL (4.60-5.80)
[2021-04-29 07:25] LABS: INTERNATIONAL NORM RATIO 1.3 (0.9-1.1); Prothrombin Time 15.2 SEC (9.9-13.0)
[2021-04-29 07:43] LABS: Glucose, Whole Blood 72 mg/dL (60-115)
[2021-04-29 07:51] LABS: Alanine Aminotransferase 19 U/L (0-40); Albumin Level 2.2 g/dL (3.5-5.0); Alkaline Phosphatase 119 U/L (39-117); Anion Gap 15 (12-20); Aspartate Amino Transferase 69 U/L (5-37); Bilirubin Direct 3.4 mg/dL (0.0-0.5); Bilirubin Total 5.6 mg/dL (0.0-1.0); Blood Urea Nitrogen 31 mg/dL (9-16); Calcium 8.1 mg/dL (8.4-10.2); Carbon Dioxide 24 mmol/L (22-29); Chloride 105 mmol/L (96-108); Creatinine Clr Calc Pharmacy 25.2; Estimated Glomerular Filt Rate 29; Glucose Fasting 82 mg/dL (60-99); Magnesium 2.5 mg/dL (1.6-2.6); Potassium 3.5 mmol/L (3.3-5.1); Sodium 140 mmol/L (135-145); Total Protein 5.8 g/dL (6.5-8.0)
[2021-04-29 08:03] LABS: TSH reflex Free T4 3.46 uIU/mL (0.32-4.0)
[2021-04-29] MEDS: Omeprazole 40 MG CAPSULE.DR PO (09:22)
[2021-04-29] MEDS: Cholecalciferol (Vitamin D3) 25 MCG TABLET PO (09:23)
[2021-04-29] MEDS: polyethylene glycoL 3350 17 GM POWD.PACK PO (09:23)
[2021-04-29] MEDS: 0.9 % Sodium Chloride Flush 3 ML SYRINGE IVFLUSH ×3 (09:23→21:46)
[2021-04-29] MEDS: Docusate Sodium 100 MG CAPSULE PO (09:23)
[2021-04-29] MEDS: Furosemide 40 MG/4 ML VIAL IVPUSH ×2 (09:23→17:12)
--- NOTE | 2021-04-29 10:12 | P.PNIM_ITS ---
Subjective Subjective Date of Service: 04/29/21 Interval History: cc: hypoxia noted incidentally interval history: no specific complaints Cardiovascular Cardiovascular: Reports no additional cardiovascular complaints Respiratory Respiratory: Reports no additional respiratory complaints Physical Exam Vital Signs: Vital Signs: Last Vital Signs Temp 98.3 F 04/29/21 07:19 Pulse 72 04/29/21 08:27 Resp 18 04/29/21 07:19 BP 90/46 L 04/29/21 08:27 Pulse Ox 94 04/29/21 07:19 Body Mass Index 27.2 General: AO X 3, no acute distress, juandiced Resp: CTA bilateral, no accessory muscles used CVS: S1,S2,RRR GI: soft, non tender, non distended Neuro: motor grossly intact, alert Psych: appropriate affect, appropriate insight Objective Data Active Medications Dextrose (Dextrose 50 % 25 Gm/50 Ml Vial) 25 gm IVPUSH Q15M PRN; Protocol PRN Reason: per Hypoglycemia Standing Ord. Docusate Sodium (Docusate Sodium 100 Mg Capsule) 100 mg PO DAILY [facility] Last Admin: 04/29/21 09:23 Dose: 100 mg Documented by: LEORA Furosemide (Furosemide 40 Mg/4 Ml Vial) 40 mg IVPUSH BID@0900,1800 [facility]; Protocol Last Admin: 04/29/21 09:23 Dose: 40 mg Documented by: LEORA Glucose (Glucose Gel 15 Gm Gel..Gram.) 15 gm PO Q15M PRN; Protocol PRN Reason: per Hypoglycemia Standing Ord. Heparin Sodium (Porcine) (Heparin Sodium,Porcine 5,000 Unit/Ml Vial) 5,000 unit SUBCUT Q8H [facility] Last Admin: 04/29/21 03:46 Dose: 5,000 unit Documented by: GAURANG Hydrocortisone (Hydrocortisone 2.5 % Rectal Cr 30 Gm Tube) 1 appl [place] BID [facility] Last Admin: 04/28/21 22:43 Dose: Not Given Documented by: GAURANG Non-Admin Reason: Med Not Available Insulin Glargine (Insulin Glargine,Hum.Rec.Anlog 100 Unit/Ml 10 Ml Vial) 10 unit SUBCUT BEDTIME [facility] Last Admin: 04/28/21 21:35 Dose: 10 unit Documented by: ROVERTO Insulin Human Lispro (Insulin Lispro 100 Unit/Ml 3 Ml Vial) 0 unit SUBCUT QIDACHS [facility]; Protocol Last Admin: 04/29/21 07:47 Dose: Not Given Documented by: LEORA Non-Admin Reason: No Insulin Coverage Loratadine (Loratadine 10 Mg Tablet) 10 mg PO BEDTIME [facility] Last Admin: 04/28/21 21:34 Dose: 10 mg Documented by: ROVERTO Metoprolol Tartrate (Metoprolol Tartrate 12.5 Mg Halftab) 12.5 mg PO BID [facility]; Protocol Last Admin: 04/29/21 09:23 Dose: Not Given Documented by: LEORA Non-Admin Reason: Decreased Blood Pressure Comments: MD Snow held med Omeprazole (Omeprazole 40 Mg Capsule.Dr) 40 mg PO DAILY [facility] Last Admin: 04/29/21 09:22 Dose: 40 mg Documented by: LEORA Pharmacy Consult (Consult Rx Perform Med Rec) 1 each MISCELLANE ONCE PRN PRN Reason: Consult order Polyethylene Glycol (Polyethylene Glycol 3350 17 Gm Powd.Pack) 17 gm PO DAILY [facility] Last Admin: 04/29/21 09:23 Dose: 17 gm Documented by: LEORA Sodium Chloride (0.9 % Sodium Chloride Flush 3 Ml Syringe) 3 ml IVFLUSH QSHIFT [facility] Last Admin: 04/29/21 09:23 Dose: 3 ml Documented by: LEORA Vitamin D (Cholecalciferol (Vitamin D3) 25 Mcg Tablet) 25 mcg PO DAILY [facility] Last Admin: 04/29/21 09:23 Dose: 25 mcg Documented by: LEORA Labs CBC & Chem 7: 04/29/21 06:44 04/29/21 06:44 Labs: Laboratory Results - last 24 hr 04/28/21 04/28/21 04/28/21 18:18 18:23 22:14 MCV MCH MCHC RDW Plt Count MPV Absolute Nucleated RBC Nucleated RBC % (auto) PT INR Anion Gap Estim Creat Clear Calc Estimated GFR POC Glucose 117 H 84 Fasting Glucose Calcium Magnesium Total Bilirubin Direct Bilirubin AST ALT Alkaline Phosphatase Total Protein Albumin TSH Urine Color DK YELLOW Urine Appearance CLEAR Urine pH 6.0 Ur Specific [place] 1.020 Urine Protein TRACE Urine Glucose (UA) NEG Urine Ketones NEG Urine Blood 3+ H Urine Nitrite NEG Ur Leukocyte Esterase TRACE H Urine RBC 50-75 H Urine WBC 5-9 H Ur Squamous Epith Cells TRACE Urine Bacteria 2+ 04/29/21 04/29/21 04/29/21 00:19 03:48 05:52 MCV MCH MCHC RDW Plt Count MPV Absolute Nucleated RBC Nucleated RBC % (auto) PT INR Anion Gap Estim Creat Clear Calc Estimated GFR POC Glucose 101 66 107 Fasting Glucose Calcium Magnesium Total Bilirubin Direct Bilirubin AST ALT Alkaline Phosphatase Total Protein Albumin TSH Urine Color Urine Appearance Urine pH Ur Specific [place] Urine Protein Urine Glucose (UA) Urine Ketones Urine Blood Urine Nitrite Ur Leukocyte Esterase Urine RBC Urine WBC Ur Squamous Epith Cells Urine Bacteria 04/29/21 04/29/21 04/29/21 06:44 06:44 06:44 MCV 105.9 H MCH 34.4 H MCHC 32.5 RDW 19.0 H Plt Count 127 L MPV 10.3 Absolute Nucleated RBC 0.000 Nucleated RBC % (auto) 0.0 PT 15.2 H INR 1.3 H Anion Gap 15 Estim Creat Clear Calc 25.2 Estimated GFR 29 POC Glucose Fasting Glucose 82 D Calcium 8.1 L Magnesium 2.5 Total Bilirubin 5.6 H Direct Bilirubin 3.4 H AST 69 H ALT 19 Alkaline Phosphatase 119 H Total Protein 5.8 L Albumin 2.2 L TSH 3.46 Urine Color Urine Appearance Urine pH Ur Specific [place] Urine Protein Urine Glucose (UA) Urine Ketones Urine Blood Urine Nitrite Ur Leukocyte Esterase Urine RBC Urine WBC Ur Squamous Epith Cells Urine Bacteria 04/29/21 07:18 MCV MCH MCHC RDW Plt Count MPV Absolute Nucleated RBC Nucleated RBC % (auto) PT INR Anion Gap Estim Creat Clear Calc Estimated GFR POC Glucose 72 Fasting Glucose Calcium Magnesium Total Bilirubin Direct Bilirubin AST ALT Alkaline Phosphatase Total Protein Albumin TSH Urine Color Urine Appearance Urine pH Ur Specific [place] Urine Protein Urine Glucose (UA) Urine Ketones Urine Blood Urine Nitrite Ur Leukocyte Esterase Urine RBC Urine WBC Ur Squamous Epith Cells Urine Bacteria Microbiology Microbiology Results: Microbiology 04/28/21 18:33 Urine Culture - Final Urine clean catch - Clean Catch Midstream Assessment and Plan (1) Acute congestive heart failure: Status: Acute (2) Chronic kidney disease (CKD) stage G4/A1, severely decreased glomerular filtration rate (GFR) between 15-29 mL/min/1.73 square meter and albuminuria creatinine ratio less than 30 mg/g: Status: Acute Assessment and Plan: 81M sent in for incidentally noted hypoxia, found to have acute on chronic diastolic chf acute hypoxic respiratory failure due to acute on chronic diastolic chf IV lasix, is and os, montior now on room air, richy guzman, reports diuresing well recent echo - 04/03/21 normal EF, pseudonormal filling patter, lvh, g2dd, mod , mild elevated RVSP paroxysmal atrial fibrillation lopressor declined restarting anticoagulation after recent bleed juandice, pancytopenia, splenomegaly, macrocytic anemia liver grossly normal appearing on recent imaging differential includes hepatic congestion from right sided chf, autoimmune hepatitis, amio toxicity, primary hematological disorder diurese, amio was dced last admission, monitor, hematology eval CKD IV stable monitor DM basal bolus insulin mointior poc dvt prophylaxis - heparin sq full code Quality Stroke Does the patient have a stroke diagnosis?: No VTE Prior VTE?: No VTE Risk Level:: Medical - moderate - high VTE Device Contraindication: Treatment Not Indicated VTE Drug Contraindication: N/A - Med Ordered
[2021-04-29 11:19] LABS: Glucose, Whole Blood 107 mg/dL (60-115)
[2021-04-29] MEDS: Hydrocortisone 2.5 % Rectal Cr 30 GM TUBE 1 APPL PR (11:45)
--- NOTE | 2021-04-29 13:01 | P.CNGI_ITS ---
History of Present Illness Data of Consult Service Date: 04/29/21 Requesting physician: Joshua Snow Primary Care Provider: Unknown Physician HPI Reason for consult: abn LFT 81-year-old man, w/ a-fib, DM, HTN, HLP, prostate ca, CVA, CKD, PVD, kidney stones who I am seeing for assessment He denies any sx except fatigue and annoyance at being admitted back to hospital after a recent prolonged stay and rehab and wants to go home. He was noted to be hypoxic at outside clinic and sent to hospital for further assessment but does not feel SOB, and denies cough, sputum, fever. CXR with possibel early pulm edema or bronchitis and given IV lasix. He denies rectal bleeding, melena. LAst admission he has EGD and colonoscopy with hemospray to rectum for radiation proctitis with advice for steroid enemas. He is anemia this time around but has macrocytosis as beofre as well as abn LFT and splenomegaly on imaging. prior labs with pos celiac serology, pos rosi and SMA. Amiodarone was stopped in case causing abn LFT or liver injury Review of Systems Review of Systems: Constitutional: Denies fever, denies Chills Eyes: denies blurry vision ENT: denies sore throat CVS: denies chest pain Respiratory: Denies dyspnea GI: no abdominal pain : denies dysuria MSK: denies neck pain Skin: denies rash Neuro: denies specific motor weakness Psych: denies suicidal ideation Endocrine: denies heat/cold intolerance Hematologic: denies easy bleeding Allergy: denies hives Cardiovascular: Cardiovascular: Reports no additional cardiovascular complaints Respiratory: Respiratory: Reports no additional respiratory complaints [facility] Past Medical History Medical History AAA (abdominal aortic aneurysm) Abdominal aortic aneurysm Atrial fibrillation Chronic kidney disease (CKD) stage G4/A1, severely decreased glomerular filtration rate (GFR) between 15-29 mL/min/1.73 square meter and albuminuria creatinine ratio less than 30 mg/g Congestive heart failure Coronary artery disease History of CVA (cerebrovascular accident) History of prostate cancer Hypercholesterolemia Hypertension Insomnia Legally blind in right eye, as defined in [place] Obesity (BMI 30-39.9) Peripheral vascular disease Renal artery stenosis Retinal detachment Sick sinus syndrome Type 2 diabetes mellitus with hyperglycemia Venous bleed Family History Family History Father Heart problem Diabetes Prostate cancer Mother Acute leukemia Pertinent family history: . Surgical History Surgical History H/O colonoscopy H/O esophagogastroduodenoscopy History of cataract surgery History of pacemaker History of prostatectomy History of thumb surgery History of tonsillectomy Hx of cystoscopy Renal calculi Social History Social History Household Members: Other Housing: [facility]pc Do you presently have visiting nurse or other home services: No Alcohol intake: never Patient Tobacco Use Status: Former Tobacco user Quit Date: 2004 Smoked: Cannot remember e-Cigarette/Vaping Use: Never Used Second Hand Smoke Exposure: No Advance Directives Date on File: 10/06/20 service: Yes (UNSURE ABOUT CONNECTION) Current occupational status: retired [employer] Allergies Allergy/AdvReac Type Severity Reaction Status Date / Time No Known Allergies Allergy Verified 03/17/21 17:45 [No Known Allergies*] Active Medications: Current Medications Dextrose (Dextrose 50 % 25 Gm/50 Ml Vial) 25 gm IVPUSH Q15M PRN; Protocol PRN Reason: per Hypoglycemia Standing Ord. Docusate Sodium (Docusate Sodium 100 Mg Capsule) 100 mg PO DAILY [facility] Last Admin: 04/29/21 09:23 Dose: 100 mg Documented by: Furosemide (Furosemide 40 Mg/4 Ml Vial) 40 mg IVPUSH BID@0900,1800 [facility]; Protocol Last Admin: 04/29/21 09:23 Dose: 40 mg Documented by: Glucose (Glucose Gel 15 Gm Gel..Gram.) 15 gm PO Q15M PRN; Protocol PRN Reason: per Hypoglycemia Standing Ord. Heparin Sodium (Porcine) (Heparin Sodium,Porcine 5,000 Unit/Ml Vial) 5,000 unit SUBCUT Q8H [facility] Last Admin: 04/29/21 11:45 Dose: 5,000 unit Documented by: Hydrocortisone (Hydrocortisone 2.5 % Rectal Cr 30 Gm Tube) 1 appl [place] BID [facility] Last Admin: 04/29/21 11:45 Dose: 1 appl Documented by: Insulin Glargine (Insulin Glargine,Hum.Rec.Anlog 100 Unit/Ml 10 Ml Vial) 10 unit SUBCUT BEDTIME [facility] Last Admin: 04/28/21 21:35 Dose: 10 unit Documented by: Insulin Human Lispro (Insulin Lispro 100 Unit/Ml 3 Ml Vial) 0 unit SUBCUT QIDACHS [facility]; Protocol Last Admin: 04/29/21 11:26 Dose: Not Given Documented by: Loratadine (Loratadine 10 Mg Tablet) 10 mg PO BEDTIME [facility] Last Admin: 04/28/21 21:34 Dose: 10 mg Documented by: Metoprolol Tartrate (Metoprolol Tartrate 12.5 Mg Halftab) 12.5 mg PO BID [facility]; Protocol Last Admin: 04/29/21 09:23 Dose: Not Given Documented by: Omeprazole (Omeprazole 40 Mg Capsule.Dr) 40 mg PO DAILY [facility] Last Admin: 04/29/21 09:22 Dose: 40 mg Documented by: Pharmacy Consult (Consult Rx Perform Med Rec) 1 each MISCELLANE ONCE PRN PRN Reason: Consult order Polyethylene Glycol (Polyethylene Glycol 3350 17 Gm Powd.Pack) 17 gm PO DAILY [facility] Last Admin: 04/29/21 09:23 Dose: 17 gm Documented by: Sodium Chloride (0.9 % Sodium Chloride Flush 3 Ml Syringe) 3 ml IVFLUSH QSHIFT [facility] Last Admin: 04/29/21 09:23 Dose: 3 ml Documented by: Vitamin D (Cholecalciferol (Vitamin D3) 25 Mcg Tablet) 25 mcg PO DAILY [facility] Last Admin: 04/29/21 09:23 Dose: 25 mcg Documented by: Home Medications Medication Instructions Recorded Confirmed Last Taken Type omega 6-xco-zdy-fish oil 1,200 mg 1 cap PO DAILY cap 05/29/20 04/28/21 03/17/21 History (144 mg-216 mg) capsule (Fish Oil) torsemide 20 mg tablet 20 mg PO BID 10/03/20 04/28/21 03/17/21 History polyethylene glycol 3350 17 17 g PO DAILY 12/12/20 04/28/21 03/17/21 History gram/dose oral powder (Miralax) insulin degludec 100 unit/mL (3 30 unit SUBCUT DAILY@1700 01/08/21 04/28/21 03/17/21 History mL) subcutaneous pen (Tresiba FlexTouch U-100 insulin) acetaminophen 325 mg tablet 650 mg PO Q4H PRN 03/26/21 04/28/21 Unknown History cetirizine 5 mg tablet 5 mg PO BEDTIME 03/26/21 04/28/21 Unknown History cholecalciferol (vitamin D3) 25 25 mcg PO DAILY 03/26/21 04/28/21 Unknown History mcg (1,000 unit) tablet docusate sodium 100 mg capsule 100 mg PO DAILY 04/28/21 04/28/21 Unknown History (Colace) hydrocortisone 2.5 % topical cream 1 appl [place] BID 04/28/21 04/28/21 Unknown History with perineal applicator (Procto-Med HC) omeprazole 20 mg capsule,delayed 40 mg PO DAILY 04/28/21 04/28/21 Unknown History release zinc sulfate 220 mg capsule 220 mg PO DAILY 04/28/21 04/28/21 Unknown History Physical Exam Vital Signs: Vital Signs: Last Vital Signs Temp 98.0 F 04/29/21 10:59 Pulse 76 04/29/21 10:59 Resp 13 04/29/21 10:59 BP 114/55 L 04/29/21 10:59 Pulse Ox 92 04/29/21 10:59 Body Mass Index 27.2 EXAM: GENERAL: The patient is weak and frail, mildly jaundiced VITAL SIGNS:see workflow HEENT: , PERRLA, EOMI. Oropharynx clear. Moist mucous membranes. Conjunctivae appear well perfused. No thyroid mass. CHEST: Chest wall is nontender. HEART: Regular rate and rhythm without murmurs. LUNGS: Clear to auscultation bilaterally. ABDOMEN: Soft, positive bowel sounds, nontender, no organomegaly.no flank tenderness SKIN: No rash, no excessive bruising, petechiae, or purpura. NEUROLOGIC: Cranial nerves II-XII intact without motor/sensory deficit. psych- slightly flat affect Results Labs CBC & Chem 7: 04/29/21 06:44 04/29/21 06:44 Labs: Short CBC 04/29/21 Range/Units 06:44 WBC 4.0 L (4.8-10.8) X10*3/uL Hgb 7.6 L (14.0-18.0) g/dl Hct 23.4 L (42-52) % Plt Count 127 L (160-400) X10*3/uL BMP 04/29/21 06:44 Sodium 140 Potassium 3.5 Chloride 105 Carbon Dioxide 24 BUN 31 H Creatinine 2.22 H Calcium 8.1 L Liver Function 04/29/21 Range/Units 06:44 Total Bilirubin 5.6 H (0.0-1.0) mg/dL Direct Bilirubin 3.4 H (0.0-0.5) mg/dL AST 69 H (5-37) U/L ALT 19 (0-40) U/L Alkaline Phosphatase 119 H (39-117) U/L Albumin 2.2 L (3.5-5.0) g/dL Urine 04/28/21 Range/Units 18:18 Urine Color DK YELLOW Urine Appearance CLEAR Urine pH 6.0 (5.0-8.0) Ur Specific Crowley 1.020 (1.005-1.025) Urine Protein TRACE (NEG-TRACE) MG/DL Urine Glucose (UA) NEG (NEG) MG/DL Microbiology Microbiology Results: Microbiology 04/28/21 18:33 Urine clean catch - Clean Catch Midstream Urine Culture - Fi nal Assessment and Plan (1) Anemia: Status: Acute (2) Elevated liver enzymes: Status: Acute (3) ROSI positive: Status: Acute 1/ Abn LFT with chronic anemia, multifactorial causes inlc CKD, hepatic congestion, splenic sequestration, nutritional, and possible hematological disease katherin myelodysplasia, or SLE. He had MRI liver earlier this year, with benign appearing cyst and nml appearing liver but splenomegaly. NO PVT or budd chiari. PLAN: 1/ cont to diurese and see if improves LFT. Would still recommend liver bx to determine if he has any infiltrative disease of the liver e.g lymphoma, sarcoid, amyloidosis or DILI, vs AIH given raised SMA, celiac markers, or SLE 2/ hematology input in case needs BM bx. 3/ high calorie diet and multi vitamin - note low albumin Procedures Date of Service Date of Service: 04/29/21
[2021-04-29] MEDS: ondansetron HCL 4 MG/2 ML VIAL IVPUSH (14:50)
--- NOTE | 2021-04-29 15:04 | MHC.CM.PN ---
CM MET WITH PT AND HIS , NEGRITO, WHO WAS AT BEDSIDE. PT LIVES AT HOME WITH HIS AND IS INDEPENDENT AT BASELINE STENOCAPTIONER PT WAS AT [facility] , PT AND WOULD LIKE HIM TO RETURN TO [facility] AT BASELINE, PT USES A FRONT WHEELED WALKER TO AMBULATE PT HAS A MOLST AND HCP ON FILE AN HIS PCP IS NANDO CHASE CURRENT DC PLAN IS RETURN TO [facility]. BLS TRANSPORT
[2021-04-29 16:26] LABS: Glucose, Whole Blood 153 mg/dL (60-115)
[2021-04-29] MEDS: Insulin Lispro 100 UNIT/ML 3 ML VIAL SUBCUT (17:12)
--- NOTE | 2021-04-29 17:53 | PC.NURSE ---
0400 Patient had bowel movement. Stool dark with visible blood. Stool also watery with a mix of hard stool. MD Snow Made aware. VSS. Pt complaining of feeling tired otherwise no complaints. Will continue to monitor, monitor H&H and transfuse as needed per MD. Will make oncoming nurse aware.
[2021-04-29 20:01] LABS: Hematocrit 22.8 % (42-52); Hemoglobin 7.4 g/dl (14.0-18.0)
[2021-04-29 20:09] LABS: Glucose, Whole Blood 166 mg/dL (60-115)
[2021-04-29] MEDS: Metoprolol Tartrate 12.5 MG HALFTAB PO (21:45)
[2021-04-29] MEDS: Loratadine 10 MG TABLET PO (21:46)
[2021-04-30] VITALS (14 sets, daily range): BP systolic 98–121; BP diastolic 41–60; PULSE 63–78; RESP 14–20; TEMP 36.1–37.2; O2SAT 92–94
[2021-04-30 04:26] LABS: Vitamin B12 1185 pg/mL (200-900)
[2021-04-30] MEDS: ondansetron HCL 4 MG/2 ML VIAL IVPUSH (06:24)
[2021-04-30 07:27] LABS: Glucose, Whole Blood 101 mg/dL (60-115)
[2021-04-30 07:52] LABS: Hematocrit 21.7 % (42-52); Hemoglobin 7.2 g/dl (14.0-18.0); Mean Corpuscular HGB Conc 33.2 g/dl (31.0-36.0); Mean Corpuscular Hemoglobin 35.1 pg (27.0-33.0); Mean Corpuscular Volume 105.9 fL (80-98); Platelet Count 116 X10*3/uL (160-400); Red Blood Count 2.05 X10*6/uL (4.60-5.80); White Blood Count 4.1 X10*3/uL (4.8-10.8)
[2021-04-30 07:59] LABS: Anion Gap 11 (12-20); Blood Urea Nitrogen 31 mg/dL (9-16); Calcium 8.3 mg/dL (8.4-10.2); Carbon Dioxide 27 mmol/L (22-29); Chloride 105 mmol/L (96-108); Estimated Glomerular Filt Rate 27; Glucose Fasting 109 mg/dL (60-99); Potassium 3.4 mmol/L (3.3-5.1); Sodium 140 mmol/L (135-145)
--- NOTE | 2021-04-30 08:35 | P.CNHO_ITS ---
Subjective - Subjective Chief complaint: None reported Patient: new to practice Consult date: 04/30/21 Requesting Physician: Dr. Snow Primary Care Provider: Unknown Physician HPI - Consult Narrative Reason for consult: Anemia Narrative: Florencio Rosales is a 81 year old male with a history of chronic anemia and multiple other medical problems admitted for hypoxia. Workup revealed chronic diastolic congestive heart failure, he was started on IV Lasix. On blood work he was noted to be anemic, slight deterioration of chronic anemia. In the last year patient has had multiple problems including sepsis/bacteremia after surgery for ureteral stone. He has chronic renal insufficiency and is followed by relay adjuster. In 2020 he was noted to have worsening liver enzymes and elevated bilirubin, he is followed by Dr. Sandhu from Gastroenterology. He underwent both EGD and colonoscopy which revealed colonic polyps. He is on long-term anticoagulation with Eliquis for atrial fibrillation. He was found to have positive DIRK and underwent a rheumatological workup, he was ruled out for lupus and rheumatoid arthritis. Blood work showed persistent anemia with hemoglobin under 9 gram/dL. Patient admits to having hematochezia almost daily which he attributes to hemorrhoids. Review of Systems - Constitutional Reports as per HPI, Reports no additional constitutional complaints, Denies anorexia - Eyes Denies blurry vision - Cardiovascular Reports no additional cardiovascular complaints, Denies chest pain - Respiratory Reports no additional respiratory complaints, Denies cough, Denies hemoptysis Oncology Screenings - ECOG Performance Status ECOG Performance Status: 3 [facility] Medical History: Medical History (Last Reviewed 04/28/21 @ 22:20 by Avelina Jay RN) AAA (abdominal aortic aneurysm) Abdominal aortic aneurysm Atrial fibrillation Chronic kidney disease (CKD) stage G4/A1, severely decreased glomerular filtration rate (GFR) between 15-29 mL/min/1.73 square meter and albuminuria creatinine ratio less than 30 mg/g Congestive heart failure Coronary artery disease History of CVA (cerebrovascular accident) History of prostate cancer Hypercholesterolemia Hypertension Insomnia Legally blind in right eye, as defined in [place] Obesity (BMI 30-39.9) Peripheral vascular disease Renal artery stenosis Retinal detachment Sick sinus syndrome Type 2 diabetes mellitus with hyperglycemia Venous bleed Family History: Family History (Last Reviewed 04/28/21 @ 12:06 by Joshua Snow MD) Father Heart problem Diabetes Prostate cancer Mother Acute leukemia Surgical History: Surgical History (Last Reviewed 04/28/21 @ 22:20 by Avelina Jay RN) H/O colonoscopy H/O esophagogastroduodenoscopy History of cataract surgery History of pacemaker History of prostatectomy History of thumb surgery History of tonsillectomy Hx of cystoscopy Renal calculi Social History: Social History (Last Reviewed 04/28/21 @ 12:06 by Joshua Snow MD) Living Situation History: Household Members: Other Housing: Custodial Do you presently have visiting nurse or other home services: No Alcohol History: Alcohol intake: never Alcohol History Details: Alcohol intake frequency: does not drink Tobacco History: Patient Tobacco Use Status: Former Tobacco user Years Smoked: Cannot remember Smoke Quit Date: 2004 e-Cigarette/Vaping Use: Never Used Second Hand Smoke Exposure: No Advance Directives: Advance Directives Date on File: 10/06/20 Occupation Assessmet: service: Yes service comment: UNSURE ABOUT CONNECTION Current occupational status: retired Home Medications and Allergies Current Medications: Current Medications Dextrose (Dextrose 50 % 25 Gm/50 Ml Vial) 25 gm IVPUSH Q15M PRN; Protocol PRN Reason: per Hypoglycemia Standing Ord. Docusate Sodium (Docusate Sodium 100 Mg Capsule) 100 mg PO DAILY [facility] Last Admin: 04/29/21 09:23 Dose: 100 mg Documented by: Glucose (Glucose Gel 15 Gm Gel..Gram.) 15 gm PO Q15M PRN; Protocol PRN Reason: per Hypoglycemia Standing Ord. Heparin Sodium (Porcine) (Heparin Sodium,Porcine 5,000 Unit/Ml Vial) 5,000 unit SUBCUT Q8H [facility] Last Admin: 04/29/21 11:45 Dose: 5,000 unit Documented by: Hydrocortisone (Hydrocortisone 2.5 % Rectal Cr 30 Gm Tube) 1 appl [place] BID [facility] Last Admin: 04/29/21 21:41 Dose: Not Given Documented by: Insulin Glargine (Insulin Glargine,Hum.Rec.Anlog 100 Unit/Ml 10 Ml Vial) 10 unit SUBCUT BEDTIME [facility] Last Admin: 04/29/21 21:53 Dose: Not Given Documented by: Insulin Human Lispro (Insulin Lispro 100 Unit/Ml 3 Ml Vial) 0 unit SUBCUT QIDACHS [facility]; Protocol Last Admin: 04/30/21 07:38 Dose: Not Given Documented by: Loratadine (Loratadine 10 Mg Tablet) 10 mg PO BEDTIME [facility] Last Admin: 04/29/21 21:46 Dose: 10 mg Documented by: Metoprolol Tartrate (Metoprolol Tartrate 12.5 Mg Halftab) 12.5 mg PO BID [facility]; Protocol Last Admin: 04/29/21 21:45 Dose: 12.5 mg Documented by: Omeprazole (Omeprazole 40 Mg Capsule.) 40 mg PO DAILY [facility] Last Admin: 04/29/21 09:22 Dose: 40 mg Documented by: Ondansetron HCl (Ondansetron Hcl 4 Mg/2 Ml Vial) 4 mg IVPUSH Q6H PRN PRN Reason: nausea Last Admin: 04/30/21 06:24 Dose: 4 mg Documented by: Pharmacy Consult (Consult Rx Perform Med Rec) 1 each MISCELLANE ONCE PRN PRN Reason: Consult order Polyethylene Glycol (Polyethylene Glycol 3350 17 Gm Powd.Pack) 17 gm PO DAILY [facility] Last Admin: 04/29/21 09:23 Dose: 17 gm Documented by: Sodium Chloride (0.9 % Sodium Chloride Flush 3 Ml Syringe) 3 ml IVFLUSH QSHIFT [facility] Last Admin: 04/29/21 21:46 Dose: 3 ml Documented by: Torsemide (Torsemide 20 Mg Tablet) 20 mg PO BID [facility]; Protocol Vitamin D (Cholecalciferol (Vitamin D3) 25 Mcg Tablet) 25 mcg PO DAILY [facility] Last Admin: 04/29/21 09:23 Dose: 25 mcg Documented by: Home Medications Medication Instructions Recorded Confirmed Type omega 8-aop-vfn-fish oil 1,200 mg 1 cap PO DAILY cap 05/29/20 04/28/21 History (144 mg-216 mg) capsule (Fish Oil) torsemide 20 mg tablet 20 mg PO BID 10/03/20 04/28/21 History polyethylene glycol 3350 17 17 g PO DAILY 12/12/20 04/28/21 History gram/dose oral powder (Miralax) insulin degludec 100 unit/mL (3 30 unit SUBCUT DAILY@1700 01/08/21 04/28/21 History mL) subcutaneous pen (Tresiba FlexTouch U-100 insulin) acetaminophen 325 mg tablet 650 mg PO Q4H PRN 03/26/21 04/28/21 History cetirizine 5 mg tablet 5 mg PO BEDTIME 03/26/21 04/28/21 History cholecalciferol (vitamin D3) 25 25 mcg PO DAILY 03/26/21 04/28/21 History mcg (1,000 unit) tablet docusate sodium 100 mg capsule 100 mg PO DAILY 04/28/21 04/28/21 History (Colace) hydrocortisone 2.5 % topical cream 1 appl [place] BID 04/28/21 04/28/21 History with perineal applicator (Procto-Med HC) omeprazole 20 mg capsule,delayed 40 mg PO DAILY 04/28/21 04/28/21 History release zinc sulfate 220 mg capsule 220 mg PO DAILY 04/28/21 04/28/21 History Allergies Allergy/AdvReac Type Severity Reaction Status Date / Time No Known Allergies Allergy Verified 03/17/21 17:45 [No Known Allergies*] Physical Exam Vital signs: Vital Signs Temp 97.9 F 04/30/21 07:40 Pulse 74 04/30/21 07:40 Resp 20 04/30/21 07:40 BP 104/41 L 04/30/21 07:40 Pulse Ox 92 04/30/21 07:40 Intake & Output 04/29/21 04/30/21 04/30/21 18:59 06:59 18:59 Intake Total 360 / 580 220 / 580 Output Total 600 / 1000 400 / 1000 175 / 175 Balance -240 / -420 -180 / -420 -175 / -175 Urine Output (Average ml/kg/hr) 0.63 0.42 0.18 Intake: Intake, Oral Amount 360 / 580 220 / 580 Output: Output, Urine Amount 600 / 1000 400 / 1000 175 / 175 Other: Breakfast % Eaten 100% Lunch % Eaten 25% Dinner % Eaten 0% Number of Bowel Movements 1 Number of Unmeasured Emesis 1 Episodes Urine Urinal Bedpan Urine Color Yellow Yellow Last Bowel Movement 04/30/21 Stool Incontinent Stool Amount Small Stool Color Blood Emesis Color Johnson Weight 78.925 kg - Constitutional Present: no acute distress, chronically ill appearing - Routine HEENT Exam Eye: Present: conjunctivae pale, scleral icterus - Routine Neck Exam Present: supple. Absent: lymphadenopathy - Routine Respiratory Exam Present: CTAB - Routine Cardiovascular Exam Cardiovascular: Present: S1, S2 - Routine Abdominal Exam Present: soft - Routine Extremities Exam Absent: calf tenderness, pedal edema Hem/Onc Consult Result - Labs CBC & Chem 7: 04/30/21 07:02 10/18/21 07:02 Labs: Short CBC 04/29/21 04/30/21 Range/Units 19:49 07:02 WBC 4.1 L (4.8-10.8) X10*3/uL Hgb 7.4 L 7.2 L (14.0-18.0) g/dl Hct 22.8 L 21.7 L (42-52) % Plt Count 116 L (160-400) X10*3/uL BMP 04/30/21 07:02 Sodium 140 Potassium 3.4 Chloride 105 Carbon Dioxide 27 BUN 31 H Creatinine 2.33 H Calcium 8.3 L Assessment and Plan Patient Active problem list reviewed?: Yes (1) Anemia Status: Chronic Assessment and plan: 1. This is a 81-year-old male with multiple medical problems with worsening chr onic macrocytic anemia. He also has mild chronic thrombocytopenia. His anemia is probably multifactorial. He has chronic kidney disease, blood loss as he is on Eliquis and has intermittent hematochezia, recently worsening liver functions and history of folic acid deficiency. He has had a hematological workup as outpatient recently. Macrocytosis could be related to his liver disease, myelodysplastic syndrome, lymphoma. 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 He has predominantly direct bilirubinemia with a normal haptoglobin a few weeks ago. LDH was not elevated. Further blood tests revealed normal vitamin B12, folic acid levels, serum protein electrophoresis and immunofixation. He was started on Procrit for chronic kidney disease stage 4. MRI abdomen in February revealed mild splenomegaly and no obvious liver pathology. Agree with liver biopsy. If inconclusive, further evaluation with a bone marrow biopsy will also be performed. I thank you very much for this consultation. - Time Spent With Patient Time Spent with Patient (in minutes): 20
[2021-04-30] MEDS: Metoprolol Tartrate 12.5 MG HALFTAB PO (08:47)
[2021-04-30] MEDS: Hydrocortisone 2.5 % Rectal Cr 30 GM TUBE 1 APPL PR ×2 (08:47→21:15)
[2021-04-30] MEDS: Torsemide 20 MG TABLET PO ×2 (08:47→21:08)
[2021-04-30] MEDS: Cholecalciferol (Vitamin D3) 25 MCG TABLET PO (08:47)
[2021-04-30] MEDS: 0.9 % Sodium Chloride Flush 3 ML SYRINGE IVFLUSH ×2 (08:48→23:26)
[2021-04-30] MEDS: Omeprazole 40 MG CAPSULE.DR PO (08:49)
[2021-04-30] MEDS: Docusate Sodium 100 MG CAPSULE PO (08:52)
[2021-04-30 11:07] LABS: Glucose, Whole Blood 106 mg/dL (60-115)
--- NOTE | 2021-04-30 11:14 | P.PNIM_ITS ---
Subjective Subjective Date of Service: 04/30/21 Interval History: cc: hypoxia interval history: RN noted red blood per rectum, patient did not see any, denies specific symptoms, overall weak and fed up being in hospital Cardiovascular Cardiovascular: Reports no additional cardiovascular complaints Respiratory Respiratory: Reports no additional respiratory complaints Physical Exam Vital Signs: Vital Signs: Last Vital Signs Temp 98.6 F 04/30/21 11:10 Pulse 65 04/30/21 11:10 Resp 20 04/30/21 11:10 BP 100/43 L 04/30/21 11:10 Pulse Ox 92 04/30/21 11:10 Body Mass Index 27.2 General: AO X 3, no acute distress, juandiced Resp:? CTA bilateral, no accessory muscles used CVS: S1,S2,RRR GI: soft, non tender, non distended Neuro:? motor grossly intact, alert Psych: appropriate affect, appropriate insight? Objective Data Active Medications Dextrose (Dextrose 50 % 25 Gm/50 Ml Vial) 25 gm IVPUSH Q15M PRN; Protocol PRN Reason: per Hypoglycemia Standing Ord. Docusate Sodium (Docusate Sodium 100 Mg Capsule) 100 mg PO DAILY [facility] Last Admin: 04/30/21 08:52 Dose: 100 mg Documented by: BRIT Glucose (Glucose Gel 15 Gm Gel..Gram.) 15 gm PO Q15M PRN; Protocol PRN Reason: per Hypoglycemia Standing Ord. Heparin Sodium (Porcine) (Heparin Sodium,Porcine 5,000 Unit/Ml Vial) 5,000 unit SUBCUT Q8H [facility] Last Admin: 04/29/21 11:45 Dose: 5,000 unit Documented by: LEORA Hydrocortisone (Hydrocortisone 2.5 % Rectal Cr 30 Gm Tube) 1 appl [place] BID [facility] Last Admin: 04/30/21 08:47 Dose: 1 appl Documented by: BRIT Insulin Glargine (Insulin Glargine,Hum.Rec.Anlog 100 Unit/Ml 10 Ml Vial) 10 unit SUBCUT BEDTIME [facility] Last Admin: 04/29/21 21:53 Dose: Not Given Documented by: SAUL Non-Admin Reason: will be npo at midno Insulin Human Lispro (Insulin Lispro 100 Unit/Ml 3 Ml Vial) 0 unit SUBCUT QIDACHS [facility]; Protocol Last Admin: 04/30/21 07:38 Dose: Not Given Documented by: BRIT Non-Admin Reason: No Insulin Coverage Loratadine (Loratadine 10 Mg Tablet) 10 mg PO BEDTIME [facility] Last Admin: 04/29/21 21:46 Dose: 10 mg Documented by: SAUL Metoprolol Tartrate (Metoprolol Tartrate 12.5 Mg Halftab) 12.5 mg PO BID [facility]; Protocol Last Admin: 04/30/21 08:47 Dose: 12.5 mg Documented by: BRIT Omeprazole (Omeprazole 40 Mg Capsule.Dr) 40 mg PO DAILY [facility] Last Admin: 04/30/21 08:49 Dose: 40 mg Documented by: BRIT Ondansetron HCl (Ondansetron Hcl 4 Mg/2 Ml Vial) 4 mg IVPUSH Q6H PRN PRN Reason: nausea Last Admin: 04/30/21 06:24 Dose: 4 mg Documented by: SAUL Pharmacy Consult (Consult Rx Perform Med Rec) 1 each MISCELLANE ONCE PRN PRN Reason: Consult order Polyethylene Glycol (Polyethylene Glycol 3350 17 Gm Powd.Pack) 17 gm PO DAILY [facility] Last Admin: 04/30/21 08:52 Dose: Not Given Documented by: BRIT Non-Admin Reason: Patient Refused Sodium Chloride (0.9 % Sodium Chloride Flush 3 Ml Syringe) 3 ml IVFLUSH QSHIFT [facility] Last Admin: 04/30/21 08:48 Dose: 3 ml Documented by: BRIT Torsemide (Torsemide 20 Mg Tablet) 20 mg PO BID [facility]; Protocol Last Admin: 04/30/21 08:47 Dose: 20 mg Documented by: BRIT Vitamin D (Cholecalciferol (Vitamin D3) 25 Mcg Tablet) 25 mcg PO DAILY [facility] Last Admin: 04/30/21 08:47 Dose: 25 mcg Documented by: BRIT Labs CBC & Chem 7: 04/30/21 07:02 04/30/21 07:02 Labs: Laboratory Results - last 24 hr 04/29/21 04/29/21 04/29/21 06:44 10:57 16:17 MCV MCH MCHC RDW Plt Count MPV Absolute Nucleated RBC Nucleated RBC % (auto) Anion Gap Estim Creat Clear Calc Estimated GFR POC Glucose 107 153 H Fasting Glucose Calcium Vitamin B12 1185 H Folate 7.0 Blood Type Antibody Screen Crossmatch 04/29/21 04/30/21 04/30/21 19:58 07:02 07:02 MCV 105.9 H MCH 35.1 H MCHC 33.2 RDW 19.0 H Plt Count 116 L MPV 10.0 Absolute Nucleated RBC 0.000 Nucleated RBC % (auto) 0.0 Anion Gap 11 L Estim Creat Clear Calc 24.0 Estimated GFR 27 POC Glucose 166 H Fasting Glucose 109 H Calcium 8.3 L Vitamin B12 Folate Blood Type Antibody Screen Crossmatch 04/30/21 04/30/21 04/30/21 07:19 09:52 10:56 MCV MCH MCHC RDW Plt Count MPV Absolute Nucleated RBC Nucleated RBC % (auto) Anion Gap Estim Creat Clear Calc Estimated GFR POC Glucose 101 106 Fasting Glucose Calcium Vitamin B12 Folate Blood Type O Negative Antibody Screen NEGATIVE Crossmatch See Detail Microbiology Microbiology Results: Microbiology 04/28/21 18:33 Urine Culture - Final Urine clean catch - Clean Catch Midstream Assessment and Plan (1) Acute congestive heart failure: Status: Acute (2) Chronic kidney disease (CKD) stage G4/A1, severely decreased glomerular filtration rate (GFR) between 15-29 mL/min/1.73 square meter and albuminuria creatinine ratio less than 30 mg/g: Status: Acute Assessment and Plan: 81M sent in for incidentally noted hypoxia, found to have acute on chronic diastolic chf acute hypoxic respiratory failure due to acute on chronic diastolic chf diuresed well, changed back to po torsemide, is and os, montior now on room air, recent echo - 04/03/21 normal EF, pseudonormal filling patter, lvh, g2dd, mod , mild elevated RVSP paroxysmal atrial fibrillation lopressor declined restarting anticoagulation after recent bleed BRBPR no further bleeding noted, was previously radiation proctitis continue proctozone, monitor h and h juandice, pancytopenia, splenomegaly, macrocytic anemia liver grossly normal appearing on recent imaging differential includes hepatic congestion from right sided chf, autoimmune hepatitis, amio toxicity, primary hematological disorder will transfuse 1 unit prbc today, monitor plan for liver biopsy amio was dced last admission, monitor, hematology appreciated - possible BM biopsy if liver biopsy inconclusive CKD IV stable monitor DM basal bolus insulin mointior poc dvt prophylaxis - mechanical due to reports of bleeding full code Quality Stroke Does the patient have a stroke diagnosis?: No VTE Prior VTE?: No VTE Risk Level:: Medical - moderate - high VTE Device Contraindication: Treatment Not Indicated VTE Drug Contraindication: N/A - Med Ordered
--- NOTE | 2021-04-30 11:53 | P.CDIC_ITS ---
CDI Concurrent Query Documentation Clarification: PHYSICIAN'S DOCUMENTATION REQUEST Date of Query: 04/30/21 1150 Patient Name: Florencio Rosales Admit Date: 04/28/21 Dear Doctor, A review of the medical record indicates additional documentation may be needed. Please review below and update the documentation accordingly. Risk Factors/Clinical Indicators/Treatments Albumin 2.2 L Total protein 5.8 History of malnutrition. ASPEN Criteria* Acute Illness Chronic Illness Clinical Characteristic Non-Severe (2 or more criteria present) Severe (2 or more criteria present) Non-Severe (2 or more criteria present) Severe (2 or more criteria present) Energy Intake <75% for >7 days <=50% for >=5 days <75% for >=1 month <=75% for >=1 month Weight Loss 1 week 1 ? 2% >2% N/A N/A 1 month 5% >5% 5% >5% 3 months 7.5 % >7.5% 7.5% >7.5% 6 months N/A N/A 10% >10% 1 year N/A N/A 20% >20% Body Fat Mild Moderate Mild Severe Muscle Mass Mild Moderate Mild Severe Fluid Accumulation Mild Moderate to Severe Mild Severe Reduced Computer Operations Technician Strength N/A Measurably Reduced N/A Measurably Reduced *[facility] Hospitalist, 2017 To ensure the quality of the medical record, based on the above information and the recognized standard for [specify severity] malnutrition, could you please verify in your progress notes which of the following diagnoses best reflects the patient's nutritional status. * [Specify severity] malnutrition is/was present and is a clinical diagnosis * No nutritional deficiency * Other (please specify) * Unable to determine Use of terms such as suspected, likely, concern for, or probable (associated with a specific diagnosis that is being evaluated, monitored, or treated as if it exists) are acceptable and can be coded in the inpatient setting, when documented at the time of discharge. Thank you, Beverley Sexton [facility], CDIS Extension: [phone] Please use your independent medical judgment in providing your response. THIS QUERY IS PART OF THE PERMANENT MEDICAL RECORD Provider Response: Other Other Diagnosis: low albumin and protein due to liver disease and inflammation not malnutrition
--- NOTE | 2021-04-30 12:44 | MHC.CM.PN ---
per rounds no anticipated dc date at this time
--- NOTE | 2021-04-30 12:59 | PC.NURSE ---
Patient to receive RBCs per orders, spoke with Ana Cardona in Radiology who was unaware patient needed tranfusion. Ana spoke with Dr Ibrahim, per [place] patient procedure to be postponed until tomorrow.
[2021-04-30 16:18] LABS: Glucose, Whole Blood 144 mg/dL (60-115)
[2021-04-30 20:05] LABS: Glucose, Whole Blood 202 mg/dL (60-115)
[2021-04-30] MEDS: Loratadine 10 MG TABLET PO (21:08)
[2021-04-30] MEDS: Insulin Lispro 100 UNIT/ML 3 ML VIAL SUBCUT (21:09)
[2021-04-30] MEDS: LORazepam 0.5 MG TABLET PO (23:26)
[2021-05-01] VITALS (9 sets, daily range): BP systolic 98–132; BP diastolic 36–64; PULSE 68–86; RESP 16–20; TEMP 35.5–37.1; O2SAT 90–96
[2021-05-01 06:50] LABS: Hematocrit 27.5 % (42-52); Hemoglobin 9.4 g/dl (14.0-18.0); Mean Corpuscular HGB Conc 34.2 g/dl (31.0-36.0); Mean Corpuscular Hemoglobin 34.8 pg (27.0-33.0); Mean Corpuscular Volume 101.9 fL (80-98); Platelet Count 123 X10*3/uL (160-400); Red Cell Distribution Width 20.6 % (11.0-16.0); White Blood Count 5.3 X10*3/uL (4.8-10.8)
[2021-05-01 07:00] LABS: Alanine Aminotransferase 20 U/L (0-40); Albumin Level 2.3 g/dL (3.5-5.0); Alkaline Phosphatase 126 U/L (39-117); Anion Gap 12 (12-20); Aspartate Amino Transferase 69 U/L (5-37); Bilirubin Direct 4.6 mg/dL (0.0-0.5); Bilirubin Total 7.5 mg/dL (0.0-1.0); Blood Urea Nitrogen 30 mg/dL (9-16); Calcium 8.1 mg/dL (8.4-10.2); Carbon Dioxide 26 mmol/L (22-29); Chloride 104 mmol/L (96-108); Creatinine Clr Calc Pharmacy 22.4; Estimated Glomerular Filt Rate 25; Glucose Fasting 156 mg/dL (60-99); Potassium 3.4 mmol/L (3.3-5.1); Sodium 139 mmol/L (135-145)
[2021-05-01 07:15] LABS: Glucose, Whole Blood 141 mg/dL (60-115)
[2021-05-01] MEDS: 0.9 % Sodium Chloride Flush 3 ML SYRINGE IVFLUSH ×3 (08:18→21:12)
[2021-05-01] MEDS: Hydrocortisone 2.5 % Rectal Cr 30 GM TUBE 1 APPL PR (08:19)
--- NOTE | 2021-05-01 09:20 | HO.PM.IMPN ---
Subjective Subjective Date of Service: 05/01/21 Interval History: cc: hypoxia interval history: no complaints, noted to be hypoxic again, no further bleeding noted Cardiovascular Cardiovascular: Reports no additional cardiovascular complaints Respiratory Respiratory: Reports no additional respiratory complaints Physical Exam Vital Signs: Vital Signs: Last Vital Signs Temp 98 F 05/01/21 06:56 Pulse 85 05/01/21 06:56 Resp 20 05/01/21 06:56 BP 111/58 L 05/01/21 06:56 Pulse Ox 90 L 05/01/21 06:56 Body Mass Index 27.2 General: AO X 3, no acute distress, juandiced Resp:? CTA bilateral, no accessory muscles used CVS: S1,S2,RRR GI: soft, non tender, non distended Neuro:? motor grossly intact, alert Psych: appropriate affect, impaired insight?(has some understanding but clearly has cognitive impairment, poor short term memory) Objective Data Active Medications Dextrose (Dextrose 50 % 25 Gm/50 Ml Vial) 25 gm IVPUSH Q15M PRN; Protocol PRN Reason: per Hypoglycemia Standing Ord. Docusate Sodium (Docusate Sodium 100 Mg Capsule) 100 mg PO DAILY [facility] Last Admin: 05/01/21 08:24 Dose: Not Given Documented by: MIRI Non-Admin Reason: Patient Refused Glucose (Glucose Gel 15 Gm Gel..Gram.) 15 gm PO Q15M PRN; Protocol PRN Reason: per Hypoglycemia Standing Ord. Hydrocortisone (Hydrocortisone 2.5 % Rectal Cr 30 Gm Tube) 1 appl [place] BID [facility] Last Admin: 05/01/21 08:19 Dose: 1 appl Documented by: MIRI Insulin Glargine (Insulin Glargine,Hum.Rec.Anlog 100 Unit/Ml 10 Ml Vial) 10 unit SUBCUT BEDTIME [facility] Last Admin: 04/30/21 21:10 Dose: Not Given Documented by: SAUL Non-Admin Reason: will be npo Insulin Human Lispro (Insulin Lispro 100 Unit/Ml 3 Ml Vial) 0 unit SUBCUT QIDACHS [facility]; Protocol Last Admin: 05/01/21 07:45 Dose: Not Given Documented by: MIRI Non-Admin Reason: No Insulin Coverage Loratadine (Loratadine 10 Mg Tablet) 10 mg PO BEDTIME [facility] Last Admin: 04/30/21 21:08 Dose: 10 mg Documented by: SAUL Metoprolol Tartrate (Metoprolol Tartrate 12.5 Mg Halftab) 12.5 mg PO BID [facility]; Protocol Last Admin: 05/01/21 08:23 Dose: Not Given Documented by: MIRI Non-Admin Reason: Patient Refused Omeprazole (Omeprazole 40 Mg Capsule.) 40 mg PO DAILY [facility] Last Admin: 05/01/21 08:24 Dose: Not Given Documented by: MIRI Non-Admin Reason: Patient Refused Ondansetron HCl (Ondansetron Hcl 4 Mg/2 Ml Vial) 4 mg IVPUSH Q6H PRN PRN Reason: nausea Last Admin: 04/30/21 06:24 Dose: 4 mg Documented by: SAUL Pharmacy Consult (Consult Rx Perform Med Rec) 1 each MISCELLANE ONCE PRN PRN Reason: Consult order Polyethylene Glycol (Polyethylene Glycol 3350 17 Gm Powd.Pack) 17 gm PO DAILY [facility] Last Admin: 05/01/21 08:18 Dose: Not Given Documented by: MIRI Non-Admin Reason: NPO Sodium Chloride (0.9 % Sodium Chloride Flush 3 Ml Syringe) 3 ml IVFLUSH QSHIFT [facility] Last Admin: 05/01/21 08:18 Dose: 3 ml Documented by: MIRI Torsemide (Torsemide 20 Mg Tablet) 20 mg PO BID [facility]; Protocol Last Admin: 05/01/21 08:24 Dose: Not Given Documented by: MIRI Non-Admin Reason: Patient Refused Vitamin D (Cholecalciferol (Vitamin D3) 25 Mcg Tablet) 25 mcg PO DAILY [facility] Last Admin: 05/01/21 08:24 Dose: Not Given Documented by: MIRI Non-Admin Reason: Patient Refused Labs CBC & Chem 7: 05/01/21 06:12 05/01/21 06:12 Labs: Laboratory Results - last 24 hr 04/30/21 04/30/21 04/30/21 09:52 10:56 16:12 MCV MCH MCHC RDW Plt Count MPV Absolute Nucleated RBC Nucleated RBC % (auto) Anion Gap Estim Creat Clear Calc Estimated GFR POC Glucose 106 144 H Fasting Glucose Calcium Total Bilirubin Direct Bilirubin AST ALT Alkaline Phosphatase Total Protein Albumin Blood Type O Negative Antibody Screen NEGATIVE Crossmatch See Detail 04/30/21 05/01/21 05/01/21 19:57 06:12 06:12 MCV 101.9 H MCH 34.8 H MCHC 34.2 RDW 20.6 H Plt Count 123 L MPV 10.0 Absolute Nucleated RBC 0.000 Nucleated RBC % (auto) 0.0 Anion Gap 12 Estim Creat Clear Calc 22.4 Estimated GFR 25 POC Glucose 202 H Fasting Glucose 156 H D Calcium 8.1 L Total Bilirubin 7.5 H Direct Bilirubin 4.6 H AST 69 H ALT 20 Alkaline Phosphatase 126 H Total Protein 6.0 L Albumin 2.3 L Blood Type Antibody Screen Crossmatch 05/01/21 06:56 MCV MCH MCHC RDW Plt Count MPV Absolute Nucleated RBC Nucleated RBC % (auto) Anion Gap Estim Creat Clear Calc Estimated GFR POC Glucose 141 H Fasting Glucose Calcium Total Bilirubin Direct Bilirubin AST ALT Alkaline Phosphatase Total Protein Albumin Blood Type Antibody Screen Crossmatch Assessment and Plan (1) Acute congestive heart failure: Status: Acute (2) Chronic kidney disease (CKD) stage G4/A1, severely decreased glomerular filtration rate (GFR) between 15-29 mL/min/1.73 square meter and albuminuria creatinine ratio less than 30 mg/g: Status: Acute Assessment and Plan: 81M sent in for incidentally noted hypoxia, found to have acute on chronic diastolic chf acute hypoxic respiratory failure due to acute on chronic diastolic chf will put back on IV lasix as still borderline hypoxia is and os, montior bmp recent echo - 04/03/21 normal EF, pseudonormal filling patter, lvh, g2dd, mod , mild elevated RVSP paroxysmal atrial fibrillation lopressor declined restarting anticoagulation after recent bleed BRBPR no further bleeding noted, was previously radiation proctitis continue proctozone, monitor h and h juandice, pancytopenia, splenomegaly, macrocytic anemia liver grossly normal appearing on recent imaging differential includes hepatic congestion from right sided chf, autoimmune hepatitis, amio toxicity, primary hematological disorder transfused 2 units prbc 04/30, hgb improved appropriately from 7.2 to 9.4 plan for liver biopsy today amio was dced last admission, monitor, hematology appreciated - possible BM biopsy if liver biopsy inconclusive CKD IV stable monitor DM basal bolus insulin mointior poc dvt prophylaxis - mechanical due to reports of bleeding full code Quality Stroke Does the patient have a stroke diagnosis?: No VTE Prior VTE?: No VTE Risk Level:: Medical - moderate - high VTE Device Contraindication: Treatment Not Indicated VTE Drug Contraindication: N/A - Med Ordered
--- NOTE | 2021-05-01 09:45 | P.CDIC_ITS ---
CDI Concurrent Query Documentation Clarification: PHYSICIAN'S DOCUMENTATION REQUEST Date of Query: 05/01/21 0946 Patient Name: Florencio Rosales Admit Date: 04/28/21 Dear Doctor, A review of the medical record indicates additional documentation may be needed. Please review below and update the documentation accordingly. Clinical Indicators: Risk Factors/Clinical Indicators/Treatments HGB 8.3 7.2 HCT 25.3 21.7 BP 82/34 BRBPR Transfuse 2 units blood. Monitor H/H. Based on the above, could you clarify in the Progress Notes which of the following is the most likely type of anemia you are evaluating, treating, and/or monitoring? * Acute blood loss anemia * Acute blood loss anemia with baseline chronic anemia (specify type) * Anemia of chronic disease- indicate if neoplastic disease, CKD, or other * Chronic iron deficiency anemia due to blood loss * Other ? please specify * Unable to determine Use of terms such as suspected, likely, concern for, or probable (associated with a specific diagnosis that is being evaluated, monitored, or treated as if it exists) are acceptable and can be coded in the inpatient setting, when documented at the time of discharge. Thank you, Beverley Sexton [facility], CDIS Extension: [phone] Please use your independent medical judgment in providing your response. THIS QUERY IS PART OF THE PERMANENT MEDICAL RECORD Provider Response: Other Other Diagnosis: no significant blood loss, cause of anemia still being worked up
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
[2021-05-01 11:27] LABS: Glucose, Whole Blood 142 mg/dL (60-115)
[2021-05-01 13:07] LABS: Glucose, Whole Blood 126 mg/dL (60-115)
[2021-05-01 16:19] LABS: Glucose, Whole Blood 134 mg/dL (60-115)
[2021-05-01] MEDS: Furosemide 40 MG/4 ML VIAL IVPUSH (17:02)
[2021-05-01 20:50] LABS: Glucose, Whole Blood 173 mg/dL (60-115)
[2021-05-01] MEDS: Insulin Glargine,Hum.rec.anlog 100 UNIT/ML 10 ML VIAL 10 UNIT SUBCUT (21:09)
[2021-05-01] MEDS: Metoprolol Tartrate 12.5 MG HALFTAB PO (21:09)
[2021-05-01] MEDS: Loratadine 10 MG TABLET PO (21:09)
[2021-05-02] VITALS (7 sets, daily range): BP systolic 103–117; BP diastolic 50–56; PULSE 67–76; RESP 18–20; TEMP 36.7–37; O2SAT 91–96
[2021-05-02 06:05] LABS: Hematocrit 26.8 % (42-52); Hemoglobin 8.8 g/dl (14.0-18.0); Mean Corpuscular HGB Conc 32.8 g/dl (31.0-36.0); Mean Corpuscular Hemoglobin 34.1 pg (27.0-33.0); Mean Corpuscular Volume 103.9 fL (80-98); Mean Platelet Volume 10.1 fL (9.4-12.4); Platelet Count 110 X10*3/uL (160-400); Red Blood Count 2.58 X10*6/uL (4.60-5.80); Red Cell Distribution Width 20.4 % (11.0-16.0); White Blood Count 4.6 X10*3/uL (4.8-10.8)
[2021-05-02 06:29] LABS: Anion Gap 12 (12-20); Blood Urea Nitrogen 28 mg/dL (9-16); Calcium 8.2 mg/dL (8.4-10.2); Carbon Dioxide 28 mmol/L (22-29); Chloride 105 mmol/L (96-108); Creatinine Clr Calc Pharmacy 22.8; Estimated Glomerular Filt Rate 26; Glucose Fasting 128 mg/dL (60-99); Potassium 3.3 mmol/L (3.3-5.1); Sodium 142 mmol/L (135-145)
[2021-05-02 07:22] LABS: Glucose, Whole Blood 121 mg/dL (60-115)
[2021-05-02] MEDS: Furosemide 40 MG/4 ML VIAL IVPUSH ×2 (08:58→18:21)
[2021-05-02] MEDS: polyethylene glycoL 3350 17 GM POWD.PACK PO (08:58)
[2021-05-02] MEDS: Cholecalciferol (Vitamin D3) 25 MCG TABLET PO (08:59)
[2021-05-02] MEDS: Metoprolol Tartrate 12.5 MG HALFTAB PO ×2 (08:59→21:25)
[2021-05-02] MEDS: Omeprazole 40 MG CAPSULE.DR PO (08:59)
[2021-05-02] MEDS: 0.9 % Sodium Chloride Flush 3 ML SYRINGE IVFLUSH ×3 (09:00→23:49)
[2021-05-02] MEDS: Docusate Sodium 100 MG CAPSULE PO (09:00)
[2021-05-02] MEDS: Hydrocortisone 2.5 % Rectal Cr 30 GM TUBE 1 APPL PR ×2 (09:19→21:25)
[2021-05-02 11:25] LABS: Glucose, Whole Blood 162 mg/dL (60-115)
--- NOTE | 2021-05-02 12:01 | PC.NURSE ---
Skin assessment completed. Patient has blanchable redness to buttocks. Barrier cream applied. No other skin issues noted at this time.
--- NOTE | 2021-05-02 14:18 | MHC.CM.PN ---
per rounds ptto have liver biopsy and gi to see pt
--- NOTE | 2021-05-02 14:19 | HO.PM.IMPN ---
Subjective Subjective Date of Service: 05/02/21 Interval History: No acute issues overnight. Status post liver biopsy without incidents Review of Systems Denies chest pain Denies shortness of breath Denies nausea vomiting diarrhea Physical Exam Vital Signs: Vital Signs: Last Vital Signs Temp 98.5 F 05/02/21 11:43 Pulse 74 05/02/21 11:43 Resp 20 05/02/21 11:43 BP 103/50 L 05/02/21 11:43 Pulse Ox 92 05/02/21 11:43 Body Mass Index 27.2 Const: Other: No acute distress Resp: Other: Clear to auscultation bilaterally no rales rhonchi past wheezes Cardio: Other: No S4 positive S1-S2 no S3 murmurs of gallops GI: Other: Soft nontender nondistended normoactive bowel sounds. No rebound guarding or tenderness Extrem: Other: No edema bilaterally Objective Data Active Medications Dextrose (Dextrose 50 % 25 Gm/50 Ml Vial) 25 gm IVPUSH Q15M PRN; Protocol PRN Reason: per Hypoglycemia Standing Ord. Docusate Sodium (Docusate Sodium 100 Mg Capsule) 100 mg PO DAILY [facility] Last Admin: 05/02/21 09:00 Dose: 100 mg Documented by: JACY Furosemide (Furosemide 40 Mg/4 Ml Vial) 40 mg IVPUSH BID@0900,1800 [facility]; Protocol Last Admin: 05/02/21 08:58 Dose: 40 mg Documented by: JACY Glucose (Glucose Gel 15 Gm Gel..Gram.) 15 gm PO Q15M PRN; Protocol PRN Reason: per Hypoglycemia Standing Ord. Hydrocortisone (Hydrocortisone 2.5 % Rectal Cr 30 Gm Tube) 1 appl [place] BID [facility] Last Admin: 05/02/21 09:19 Dose: 1 appl Documented by: JACY Insulin Glargine (Insulin Glargine,Hum.Rec.Anlog 100 Unit/Ml 10 Ml Vial) 10 unit SUBCUT BEDTIME [facility] Last Admin: 05/01/21 21:09 Dose: 10 unit Documented by: GAURANG Insulin Human Lispro (Insulin Lispro 100 Unit/Ml 3 Ml Vial) 0 unit SUBCUT QIDACHS [facility]; Protocol Last Admin: 05/02/21 11:19 Dose: Not Given Documented by: JACY Non-Admin Reason: pt minimal eating Loratadine (Loratadine 10 Mg Tablet) 10 mg PO BEDTIME [facility] Last Admin: 05/01/21 21:09 Dose: 10 mg Documented by: GAURANG Metoprolol Tartrate (Metoprolol Tartrate 12.5 Mg Halftab) 12.5 mg PO BID [facility]; Protocol Last Admin: 05/02/21 08:59 Dose: 12.5 mg Documented by: JACY Omeprazole (Omeprazole 40 Mg Capsule.Dr) 40 mg PO DAILY [facility] Last Admin: 05/02/21 08:59 Dose: 40 mg Documented by: JACY Ondansetron HCl (Ondansetron Hcl 4 Mg/2 Ml Vial) 4 mg IVPUSH Q6H PRN PRN Reason: nausea Last Admin: 04/30/21 06:24 Dose: 4 mg Documented by: SAUL Pharmacy Consult (Consult Rx Perform Med Rec) 1 each MISCELLANE ONCE PRN PRN Reason: Consult order Polyethylene Glycol (Polyethylene Glycol 3350 17 Gm Powd.Pack) 17 gm PO DAILY [facility] Last Admin: 05/02/21 08:58 Dose: 17 gm Documented by: JACY Sodium Chloride (0.9 % Sodium Chloride Flush 3 Ml Syringe) 3 ml IVFLUSH QSHIFT [facility] Last Admin: 05/02/21 09:00 Dose: 3 ml Documented by: JACY Vitamin D (Cholecalciferol (Vitamin D3) 25 Mcg Tablet) 25 mcg PO DAILY [facility] Last Admin: 05/02/21 08:59 Dose: 25 mcg Documented by: JACY Labs CBC & Chem 7: 05/02/21 05:19 05/02/21 05:19 Labs: Laboratory Results - last 24 hr 05/01/21 05/01/21 05/02/21 15:59 20:47 05:19 MCV 103.9 H MCH 34.1 H MCHC 32.8 RDW 20.4 H Plt Count 110 L MPV 10.1 Absolute Nucleated RBC 0.000 Nucleated RBC % (auto) 0.0 Anion Gap Estim Creat Clear Calc Estimated GFR POC Glucose 134 H 173 H Fasting Glucose Calcium 05/02/21 05/02/21 05/02/21 05:19 07:15 11:15 MCV MCH MCHC RDW Plt Count MPV Absolute Nucleated RBC Nucleated RBC % (auto) Anion Gap 12 Estim Creat Clear Calc 22.8 Estimated GFR 26 POC Glucose 121 H 162 H Fasting Glucose 128 H Calcium 8.2 L Assessment and Plan (1) CHF exacerbation: Status: Acute (2) Elevated liver enzymes: Status: Acute Assessment and Plan: 81M sent in from rehab facility for hypoxia. Unclear the exact measurment. patient himself is vague but denies sob or any other symptoms. 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 in ED patient no longer hypoxic but noted to have bilateral opacities on CXR, elevated BNP, concern for chf. 1.Acute hypoxic respiratory failure due to acute on chronic diastolic CHF Renal function at baseline; will repeat BNP in a.m.; if elevated will give additional dose of IV Lasix. ( Recent echo - 04/03/21 normal EF, pseudonormal filling patter, lvh, g2dd, mod , mild elevated RVSP) 2.Paroxysmal Atrial Fibrillation Continue beta-duke as ordered; no anticoagulation secondary to recent GI bleed 3. Abnormal LFTs Discussed with GI; reviewed with pathologist. 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 Amiodarone has been DC. At GIs request, will start prednisone taper 40/30/20 each for 1 week followed by 5 mg daily and follow-up with GI as outpatient. LFTs now normalized 4.CKD IV Renal function stable; at baseline. Continue to follow DVT prophylaxis: Venodyne boots Full code Quality Stroke Does the patient have a stroke diagnosis?: No VTE Prior VTE?: No VTE Risk Level:: Medical - moderate - high VTE Device Contraindication: Treatment Not Indicated VTE Drug Contraindication: N/A - Med Ordered
[2021-05-02 16:22] LABS: Glucose, Whole Blood 134 mg/dL (60-115)
[2021-05-02 20:22] LABS: Glucose, Whole Blood 166 mg/dL (60-115)
[2021-05-02] MEDS: Loratadine 10 MG TABLET PO (21:25)
[2021-05-02] MEDS: Insulin Glargine,Hum.rec.anlog 100 UNIT/ML 10 ML VIAL 10 UNIT SUBCUT (21:25)
[2021-05-03 03:07] VITALS: BP 100/48; PULSE 63; RESP 18; TEMP 36.9; O2SAT 92
[2021-05-03 06:41] LABS: MANUAL DIFF FLAG NO
[2021-05-03 06:46] LABS: Basophils Percent Auto 0.5 % (0-2); Eosinophils Absolute Auto 0.1 X10*3/uL (0.0-0.4); Eosinophils Percent Auto 2.6 % (0-4); Hematocrit 25.3 % (42-52); Hemoglobin 8.2 g/dl (14.0-18.0); Imm Gran Abs Auto 0.02 X10*3/uL (0.00-0.03); Imm Gran Pct Auto 0.5 % (0.0-0.4); Lymphocytes Absolute Auto 0.8 X10*3/uL (1.2-4.9); Lymphocytes Percent Auto 20.8 % (20-40); Mean Corpuscular HGB Conc 32.4 g/dl (31.0-36.0); Mean Corpuscular Hemoglobin 33.6 pg (27.0-33.0); Mean Corpuscular Volume 103.7 fL (80-98); Mean Platelet Volume 9.9 fL (9.4-12.4); Monocytes Absolute Auto 0.5 X10*3/uL (0.1-1.2); Neutrophils Absolute Auto 2.3 X10*3/uL (2.0-8.3); Neutrophils Percent Auto 61.6 % (45-73); Platelet Count 100 X10*3/uL (160-400); Red Blood Count 2.44 X10*6/uL (4.60-5.80); Red Cell Distribution Width 19.9 % (11.0-16.0); White Blood Count 3.8 X10*3/uL (4.8-10.8)
[2021-05-03 07:26] LABS: Glucose, Whole Blood 82 mg/dL (60-115)
[2021-05-03 07:31] LABS: Alanine Aminotransferase 21 U/L (0-40); Albumin Level 2.1 g/dL (3.5-5.0); Alkaline Phosphatase 108 U/L (39-117); Anion Gap 8 (12-20); Aspartate Amino Transferase 63 U/L (5-37); Bilirubin Total 7.2 mg/dL (0.0-1.0); Blood Urea Nitrogen 26 mg/dL (9-16); Calcium 8.1 mg/dL (8.4-10.2); Carbon Dioxide 30 mmol/L (22-29); Chloride 105 mmol/L (96-108); Estimated Glomerular Filt Rate 28; Glucose Fasting 88 mg/dL (60-99); Potassium 3.1 mmol/L (3.3-5.1); Sodium 140 mmol/L (135-145); Total Protein 5.5 g/dL (6.5-8.0)
[2021-05-03 07:37] VITALS: BP 107/48; PULSE 69; RESP 18; TEMP 36.7; O2SAT 94
[2021-05-03 11:03] LABS: Glucose, Whole Blood 152 mg/dL (60-115)
[2021-05-03] MEDS: Omeprazole 40 MG CAPSULE.DR PO (11:13)
[2021-05-03] MEDS: predniSONE 20 MG TABLET 40 MG PO (11:13)
[2021-05-03] MEDS: 0.9 % Sodium Chloride Flush 3 ML SYRINGE IVFLUSH ×2 (11:14→18:27)
[2021-05-03] MEDS: Docusate Sodium 100 MG CAPSULE PO (11:14)
[2021-05-03] MEDS: Furosemide 40 MG/4 ML VIAL IVPUSH ×2 (11:14→18:27)
[2021-05-03] MEDS: Cholecalciferol (Vitamin D3) 25 MCG TABLET PO (11:14)
[2021-05-03 11:15] VITALS: BP 100/41; PULSE 66; TEMP 36.5; O2SAT 94
[2021-05-03] MEDS: polyethylene glycoL 3350 17 GM POWD.PACK PO (11:17)
[2021-05-03 11:18] VITALS: BP 100/42; PULSE 66
[2021-05-03] MEDS: Hydrocortisone 2.5 % Rectal Cr 30 GM TUBE 1 APPL PR (11:18)
[2021-05-03] MEDS: Insulin Lispro 100 UNIT/ML 3 ML VIAL SUBCUT ×2 (12:14→18:26)
--- NOTE | 2021-05-03 12:21 | P.DS_ITS ---
DS: Providers Provider Date of Service: 05/03/21 Date of admission: 04/28/21 11:59 Date of discharge: 05/03/21 Primary care physician: Unknown Physician Consults: 04/29/21 07:47 Consult to Hematology / Oncology Routine Consulting Provider: Johnna Rain Reason for consultation: pancytopenia, splenomegaly, macrocytosis 04/29/21 10:21 Consult to Gastroenterology Routine Consulting Provider: Xuan Sandhu Reason for consultation: juandice over several months, splenomegaly, ?etiology DS: Diagnosis Discharge Diagnosis (1) CHF exacerbation: Status: Acute (2) Elevated liver enzymes: Status: Acute DS: Summary Hospital Course Hospital Course: 81M sent in from rehab facility for hypoxia. Unclear the exact measurment. patient himself is vague but denies sob or any other symptoms. 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 in ED patient no longer hypoxic but noted to have bilateral opacities on CXR, elevated BNP, concern for chf. 1.Acute hypoxic respiratory failure due to acute on chronic diastolic CHF ?? Renal function at baseline; will repeat BNP in a.m.; if elevated will give additional dose of IV Lasix. ? ( Recent echo - 04/03/21 normal EF, pseudonormal filling patter, lvh, g2dd, mod , mild elevated RVSP) Back to baseline on discharge 2.Paroxysmal Atrial Fibrillation ?? Continue beta-duke as ordered; no anticoagulation secondary to recent GI bleed No changes during admission 3. Abnormal LFTs ? ? Discussed with GI; reviewed with pathologist.? 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 Amiodarone has been DC. ? ? At GIs request, will start prednisone taper /02/05 each for 1 week followed by 5 mg daily and follow-up with GI as outpatient. ? ? LFTs now normalized 4.CKD IV ?? Renal function stable; at baseline.? Continue to follow Medically acceptable for transfer back to SNF Time Spent with Patient Time attestation: Total time spent providing and/or coordinating discharge services: Discharge coordination time: Greater than 30 minutes Quality: Stroke Does the patient have a stroke diagnosis?: No Physical Exam Vital Signs: Vital Signs: Last Vital Signs Temp 97.7 F 05/03/21 11:15 Pulse 66 05/03/21 11:18 Resp 18 05/03/21 07:37 BP 100/42 L 05/03/21 11:18 Pulse Ox 94 05/03/21 11:15 Body Mass Index 27.2 Const: Other: No acute distress Resp: Other: Clear auscultation bilaterally. No rales Cardio: Other: No S4 positive S1-S2 no S3 without murmurs or gallops GI: Other: Soft nontender nondistended with normoactive bowel sounds. No peritoneal signs Extrem: Other: No edema DS: Data Data Completed and Pending Completed studies during hospitalization [Text1]: Procedures Excision of Cecum, Via Natural or Artificial Opening Endoscopic, Diagnostic (10/03/20) Excision of Rectum, Via Natural or Artificial Opening Endoscopic, Diagnostic (10/03/20) Inspection of Upper Intestinal Tract, Via Natural or Artificial Opening Endoscopic (03/26/21) Introduction of Mineral-based Topical Hemostatic Agent into Lower GI, Via Natural or Artificial Opening Endoscopic, [employer] 6 (03/26/21) Transfusion of Nonautologous Red Blood Cells into Peripheral Vein, Percutaneous Approach (03/26/21) Labs on day of discharge: Laboratory Results - last 24 hr 05/02/21 05/02/21 05/03/21 16:19 20:12 06:08 WBC 3.8 L RBC 2.44 L Hgb 8.2 L Hct 25.3 L MCV 103.7 H MCH 33.6 H MCHC 32.4 RDW 19.9 H Plt Count 100 L MPV 9.9 Immature Gran % (Auto) 0.5 H Neut % (Auto) 61.6 Lymph % (Auto) 20.8 [place] % (Auto) 14.0 H Eos % (Auto) 2.6 Baso % (Auto) 0.5 Lymph # (Auto) 0.8 L [place] # (Auto) 0.5 Eos # (Auto) 0.1 Baso # (Auto) 0.0 Abs Immat Gran (auto) 0.02 Absolute Neuts (auto) 2.3 Absolute Nucleated RBC 0.000 Nucleated RBC % (auto) 0.0 Sodium Potassium Chloride Carbon Dioxide Anion Gap BUN Creatinine Estim Creat Clear Calc Estimated GFR POC Glucose 134 H 166 H Fasting Glucose Calcium Total Bilirubin AST ALT Alkaline Phosphatase Total Protein Albumin 05/03/21 05/03/21 05/03/21 06:08 07:19 10:54 WBC RBC Hgb Hct MCV MCH MCHC RDW Plt Count MPV Immature Gran % (Auto) Neut % (Auto) Lymph % (Auto) [place] % (Auto) Eos % (Auto) Baso % (Auto) Lymph # (Auto) [place] # (Auto) Eos # (Auto) Baso # (Auto) Abs Immat Gran (auto) Absolute Neuts (auto) Absolute Nucleated RBC Nucleated RBC % (auto) Sodium 140 Potassium 3.1 L Chloride 105 Carbon Dioxide 30 H Anion Gap 8 L BUN 26 H Creatinine 2.24 H Estim Creat Clear Calc 25.0 Estimated GFR 28 POC Glucose 82 152 H Fasting Glucose 88 Calcium 8.1 L Total Bilirubin 7.2 H AST 63 H ALT 21 Alkaline Phosphatase 108 Total Protein 5.5 L Albumin 2.1 L Discharge Plan Discharge Patient Disposition: Xfer Inpatient Rehab Fac Discharge Diagnosis: Abnormal LFTs Referrals: Physician,Unknown J [Primary Care Provider] - 1 Week Discharge Medications: New prednisone 10 mg tablet See Rx Instructions .Route .COMPLEX Qty: 75 RF: 0 Continued (DME) pen needle, diabetic [BD Ultra-Fine Mini Pen Needle] 31 gauge x 3/16 needle See Rx Instructions .ROUTE .MEDSUPPLY Qty: 100 RF: 0 (DME) lancets [OneTouch Delica Plus Lancet] 30 gauge misc See Rx Instructions .Route Qty: 300 RF: 0 (DME) OneTouch Verio test strips Strip See Rx Instructions .ROUTE .MEDSUPPLY Qty: 3 RF: 3 vitamin A 10,000 unit capsule 1 cap PO DAILY Qty: 28 RF: 0 Tresiba FlexTouch U-100 100 unit/mL (3 mL) insulin pen 30 unit subcut DAILY@1700 RF: 0 acetaminophen 325 mg Tablet 650 mg PO Q4H PRN (Reason: Pain (Scale Score 1-3)) RF: 0 cetirizine 5 mg Tablet 5 mg PO BEDTIME RF: 0 cholecalciferol (vitamin D3) 25 mcg (1,000 unit) Tablet 25 mcg PO DAILY RF: 0 metoprolol tartrate 25 mg tablet 12.5 mg PO BID Qty: 60 RF: 0 hydrocortisone [Procto-Med HC] 2.5 % Cream With Perineal Applicator 1 appl ME BID RF: 0 docusate sodium [Colace] 100 mg Capsule 100 mg PO DAILY RF: 0 zinc sulfate 220 mg Capsule 220 mg PO DAILY RF: 0 omeprazole 20 mg capsule,delayed release(DR/EC) 40 mg PO DAILY RF: 0 omega 8-azc-efs-fish oil [Fish Oil] 1,200 (144-216) mg capsule 1 cap PO DAILY RF: 0 torsemide 20 mg tablet 20 mg PO BID RF: 0 polyethylene glycol 3350 [Miralax] 17 gram/dose powder 17 g PO DAILY RF: 0 Discharge Orders: Discharge Order (Routine); Ordered 05/03/21 Ordered By: Samuel Jarrell Activity on Discharge: As tolerated Stand Alone Forms: Patient Portal Discharge page Care Plan Goals: Will retain highest level of function Health Concerns: Rehab as per facility Plan of Treatment: Maintain the else Assessment: Improved
[2021-05-03 14:09] VITALS: BP 100/42; PULSE 66
[2021-05-03 14:36] LABS: COVID-19 Test Negative (Negative); IDNOW Serial# 9DD0AD1C
[2021-05-03 15:06] VITALS: BP 103/42; PULSE 71; RESP 18; TEMP 36.8; O2SAT 92
--- NOTE | 2021-05-03 15:50 | MHC.CM.PN ---
PT CLEARED TO DC BACK TO [facility] TODAY. CM MET WITH PT AND HIS WHO ARE AWARE OF DC AND AGREEABLE TO CHAIR VAN TRANSPORT DUE TO TRANSPORT DELAYS, PT WILL DC AROUND 1800 HOURS.
[2021-05-03 16:03] LABS: Glucose, Whole Blood 229 mg/dL (60-115)
[2021-05-03] MEDS: Potassium Chloride Packet 20 MEQ PACKET 40 MEQ PO (18:26)
--- NOTE | 2021-05-03 18:55 | PC.NURSE ---
Patient was noted to have K of 3.1, discussed with PA, and new order for 40 meQ [place], administerered before discharge; Patient with jaundice on admission, discharge meds included vitamin A 10,000 Units daily, discussed with PA, med to be discontinued on discharge. Report given to RN at [facility] as well as to ambulance drivers
== END 2021-05-03 18:46 | DRG 441 ==
LOC: HO.ED 08:11 → HO.EDOVER 12:04 → HO.IMC 21:45
PROVIDERS: Radiology Diagnostic Radiology; Admitting Provider Internal Medicine; Emergency Provider Student in an Organized Health Care Education/Training Program; Visit Provider Hospitalist
PROC: 0FB13ZX Excision of Right Lobe Liver, Percutaneous Approach, Diagnostic (ICD-10-PCS; principal; 2021-05-01 13:00)
DX: K71.10 Toxic liver disease with hepatic necrosis, without coma (principal); J96.01 Acute respiratory failure with hypoxia; I50.33 Acute on chronic diastolic (congestive) heart failure; I13.2 Hypertensive heart and chronic kidney disease with heart failure and with stage 5 chronic kidney disease, or end stage renal disease; D61.818 Other pancytopenia; K62.5 Hemorrhage of anus and rectum; N18.4 Chronic kidney disease, stage 4 (severe); D63.1 Anemia in chronic kidney disease; R76.0 Raised antibody titer; T46.2X5A Adverse effect of other antidysrhythmic drugs, initial encounter; Y92.9 Unspecified place or not applicable; I48.0 Paroxysmal atrial fibrillation; E11.22 Type 2 diabetes mellitus with diabetic chronic kidney disease; Z20.822 Contact with and (suspected) exposure to COVID-19; Z87.891 Personal history of nicotine dependence; Z79.4 Long term (current) use of insulin; Z79.899 Other long term (current) drug therapy
CPT/HCPCS: 0241U; 36415; 47000; 71045; 76942; 80048; 80053; 80076; 81001; 82607; 82746; 82947; 83735; 83880; 84443; 85014; 85018; 85025; 85027; 85610; 86850; 86900; 86901; 86923; 87086; 87635; 88307; 88313; 93005; 97162; 99152; 99285; J1940; J2405; P9016

== ENCOUNTER 2021-05-08 10:39 | Emergency (ER) | payer MEDICARE, SELFPAY ==
[2021-05-08 10:51] VITALS: BP 116/64; O2SAT 96
[2021-05-08 10:58] VITALS: BP 115/47; PULSE 72; RESP 18; TEMP 36.8; O2SAT 93; BMI 26.3
--- NOTE | 2021-05-08 11:26 | ECG_ITS ---
Test Reason : GI BLEED Blood Pressure : / mmHG Vent. Rate : 070 BPM Atrial Rate : 070 BPM P-R Int : 224 ms QRS Dur : 100 ms QT Int : 538 ms P-R-T Axes : 063 013 164 degrees QTc Int : 581 ms Sinus rhythm with 1st degree A-V block ST & T wave abnormality, consider anterolateral ischemia Prolonged QT Abnormal ECG No significant changes seen Referred By: Mehreen Fitzgerald Electronically Signed By:EMERY CEVALLOS MD
--- NOTE | 2021-05-08 11:42 | ED.GIBLEED ---
HPI - GI Bleed General Chief complaint: GI Bleed Stated complaint: rectal bleed Time Seen by Provider: 05/08/21 11:19 Source: patient and EMS Mode of arrival: EMS Limitations: no limitations History of Present Illness HPI Narrative: 81-year-old male coming from a short-term rehab with complaints of rectal bleeding. Per patient this morning he had some abdominal cramping and when he went to the bathroom he had 3 episodes of rectal bleeding. Patient tells me it was stool mixed with blood.. After he moved his bowels 3 times his pain resolved. He no longer is complaining of pain in the abdomen. He denies any nausea or vomiting. No fevers or chills. He tells me he has not had any rectal bleeding the last few days until today. He is complaining of feeling weak and tired but tells me that he has felt this way the last few weeks. No shortness of breath or cough from baseline. No chest pain. 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 Patient is full code. Related Data Home Medications Medication Instructions Recorded Confirmed omega 9-bzp-haa-fish oil 1,200 mg 1 cap PO DAILY cap 05/29/20 04/28/21 (144 mg-216 mg) capsule (Fish Oil) torsemide 20 mg tablet 20 mg PO BID 10/03/20 04/28/21 polyethylene glycol 3350 17 17 g PO DAILY 12/12/20 04/28/21 gram/dose oral powder (Miralax) insulin degludec 100 unit/mL (3 30 unit SUBCUT DAILY@1700 01/08/21 04/28/21 mL) subcutaneous pen (Tresiba FlexTouch U-100 insulin) acetaminophen 325 mg tablet 650 mg PO Q4H PRN 03/26/21 04/28/21 cetirizine 5 mg tablet 5 mg PO BEDTIME 03/26/21 04/28/21 cholecalciferol (vitamin D3) 25 25 mcg PO DAILY 03/26/21 04/28/21 mcg (1,000 unit) tablet docusate sodium 100 mg capsule 100 mg PO DAILY 04/28/21 04/28/21 (Colace) hydrocortisone 2.5 % topical cream 1 appl MI BID 04/28/21 04/28/21 with perineal applicator (Procto-Med HC) omeprazole 20 mg capsule,delayed 40 mg PO DAILY 04/28/21 04/28/21 release zinc sulfate 220 mg capsule 220 mg PO DAILY 04/28/21 04/28/21 Previous Rx's Medication Instructions Recorded pen needle, diabetic 31 gauge x #100 ea 02/20/2109/26 (BD Ultra-Fine Mini Pen Needle) blood sugar diagnostic (OneTouch #3 03/05/21 Verio test strips) lancets 30 gauge (OneTouch Delica #300 ea 03/05/21 Plus Lancet) vitamin A 10,000 unit capsule 1 cap PO DAILY #28 cap 03/27/21 metoprolol tartrate 25 mg tablet 12.5 mg PO BID #60 tab 04/12/21 prednisone 10 mg tablet See Rx Instructions .ROUTE 05/03/21 .COMPLEX #75 tab Allergies Allergy/AdvReac Type Severity Reaction Status Date / Time No Known Allergies Allergy Verified 03/17/21 17:45 [No Known Allergies*] Review of Systems Review of Systems: Yes all other systems are reviewed and are negative Constitutional: Constitutional: Reports no additional constitutional complaints, Denies body ache(s), Denies chills, Reports fatigue, Denies fever(s), Denies headache(s) and Denies weakness Eyes: Eyes: Reports no additional eye complaints and Denies change in vision ENT: Reports system reviewed and no additional complaints, except as documented, Denies dizziness, Denies headache(s), Denies nasal congestion, Denies nasal discharge and Denies neck pain Cardiovascular: Cardiovascular: Reports no additional cardiovascular complaints, Denies chest pain, Denies leg edema and Denies dyspnea Respiratory: Respiratory: Reports no additional respiratory complaints, Denies cough and Denies dyspnea Gastrointestinal: Gastrointestinal: Reports no additional gastrointestinal complaints, Reports abdominal pain (now resolved ), Reports hematochezia, Denies diarrhea, Denies nausea and Denies vomiting Genitourinary: Genitourinary: Denies urinary incontinence Musculoskeletal: Musculoskeletal: Reports no additional musculoskeletal complaints, Denies back pain, Denies arthralgias, Denies joint swelling, Denies neck pain, Denies numbness and Denies tingling Integumentary/Breasts: Skin/Breast: Reports system reviewed and no additional complaints, except as docu and Denies rash Neurologic: Reports system reviewed and no additional complaints, except as documented, Denies Abnormal speech present, Denies dizziness, Denies headache(s), Denies numbness, Denies tingling and Denies weakness Endocrine: Endocrine: Reports fatigue [facility] Past Medical History Attestation statement: The following information was validated with the patient. Source: old records reviewed and nursing notes reviewed Medical History AAA (abdominal aortic aneurysm) Abdominal aortic aneurysm Atrial fibrillation Chronic kidney disease (CKD) stage G4/A1, severely decreased glomerular filtration rate (GFR) between 15-29 mL/min/1.73 square meter and albuminuria creatinine ratio less than 30 mg/g Congestive heart failure Coronary artery disease History of CVA (cerebrovascular accident) History of prostate cancer Hypercholesterolemia Hypertension Insomnia Legally blind in right eye, as defined in [place] Obesity (BMI 30-39.9) Peripheral vascular disease Renal artery stenosis Retinal detachment Sick sinus syndrome Type 2 diabetes mellitus with hyperglycemia Venous bleed Surgical History H/O colonoscopy H/O esophagogastroduodenoscopy History of cataract surgery History of pacemaker History of prostatectomy History of thumb surgery History of tonsillectomy Hx of cystoscopy Renal calculi Family History Family History Father Heart problem Diabetes Prostate cancer Mother Acute leukemia Social History Social History Household Members: Other Housing: [facility] Do you presently have visiting nurse or other home services: No Alcohol intake: never Patient Tobacco Use Status: Former Tobacco user Quit Date: 2004 Years Smoked: Cannot remember e-Cigarette/Vaping Use: Never Used Second Hand Smoke Exposure: No Use of substances other than those prescribed or required for medical reasons: No Advance Directives: Yes Advance Directives on File: Yes Advance Directives Date on File: 10/06/20 service: Yes (UNSURE ABOUT CONNECTION) Current occupational status: retired Physical Exam Vital Signs: Vital Signs: Last Vital Signs Temp 97.7 F 05/08/21 15:46 Pulse 74 05/08/21 15:46 Resp 18 05/08/21 15:46 BP 118/47 L 05/08/21 15:46 Pulse Ox 93 05/08/21 15:46 Body Mass Index 26.3 Const: General: cooperative, healthy appearing, comfortable and no acute distress Orientation/consciousness: patient oriented x3 Limitations: no limitations HENMT: Other: scleraral icterus Head: Yes normal to inspection Ears: hearing grossly normal bilaterally and TM's normal bilaterally General nose exam: Normal external nose present Face and sinus: Yes normal facial exam Mouth: Normal oral and palatal mucosa present Throat: Yes posterior oropharynx normal, Yes tonsils normal and Yes uvula midline Eyes: General: appearance normal, both eyes and all related structures Pupils: Equal, round and reactive pupils present Neck: Neck: Yes normal visual inspection Chest: Chest palpation & inspection: normal inspection of the chest Resp: Effort & Inspection: normal respiratory effort Auscultation: clear to auscultation bilaterally Cardio: Rate: regular rate Rhythm: regular rhythm Peripheral pulses: Peripheral pulses 2+ throughout GI: Other: Scant BRB by rectum (heme positive) Inspection: Yes normal to inspection Palpation (GI): Soft to palpation and nontender Auscultation: normal bowel sounds Back/Spine/Pelvis: Thoracic/Lumbar Spine: thoracic and lumbar spine normal to inspection Skin: General skin exam: no rashes or lesions noted Neuro: General: patient oriented x3, no focal motor deficits and normal sensation to monofilament Cranial nerves: Yes Equal, round and reactive pupils present Cognition (Neuro): normal cognition Speech: No Abnormal speech present Gait exam (Neuro): Normal gait present Motor exam (neuro): 5/5 motor strength present throughout Extrem: General: Yes normal to inspection, Yes no pedal edema and Yes no calf tenderness Course Course Course Narrative: 81-year-old male here with complaints of rectal bleeding with associated abdominal cramping this morning now resolved per patient. Of note patient has a history of radiation prostatitis with GI bleed associated with several admits for same. Also recent admit for elevated LFTs on a prednisone taper currently, respiratory failure secondary to acute on chronic CHF and paroxsymal afib. Not currently on AC. Last colonoscopy 03/[address] Sandhu which showed actively bleeding radiation proctitis with hemorrhoids treated with hemospray. On exam the patient is jaundice, pale conjunctiva. No focal abdominal pain. Will need labs, UA, occult stool, EKG. 1420-CBC shows a microcytic anemia and thrombocytopenia improved from previous. Patient had labs yesterday on May 07 that showed hemoglobin of 8.2 and hematocrit 25.6. Today his hemoglobin is 9.3 and his hematocrit is 28.2. Mild hypokalemia unchanged from previous. BUN is elevated from previous but creatinine is at baseline. Elevated lactic acid which is not from infection. Elevated LFTs at baseline. Troponin indeterminate. Plan to observe the patient until 16:00. Recheck CBC, renal function, lactic acid and troponin. Also monitor for additional stooling episodes. Will gently hydrate with normal saline. 1730-repeat CBC unchanged. Renal function unchanged. No delta troponin. BNP better then previous with no clinical findings concern for fluid overload. Mild hypokalemia will replace with oral potassium. Lactic acid is mildly elevated which is not from infection. The patient has had no additional episodes of rectal bleeding. Again no abdominal. Vitals are stable. Reviewed previous operative notes and GI notes from last admissions. I discussed the case with Dr. Snow at length. Bleeding is likely from the patient's radiation proctitis. There is not a large amount of bleeding today with a stable CBC and patient can therefore follow-up with Dr. Sandhu outpatient for sigmoidoscopy and possible APC treatment. In the meantime he can continue steroid supplements or Proctofoam. Patient will be discharged back to [facility]. I did discuss this with patient and his Sallie at length. MDM - GI Bleed Medical Records Attestation: I reviewed the patient's medical records. Lab Data Attestation: I reviewed the patient's lab results. Result diagrams: 05/08/21 16:03 05/08/21 16:03 Labs: Lab Results 05/08/21 05/08/21 05/08/21 Range/Units 12:19 12:19 13:07 WBC 7.6 (4.8-10.8) X10*3/uL RBC 2.63 L (4.60-5.80) X10*6/uL Hgb 9.3 L (14.0-18.0) g/dl Hct 28.2 L (42-52) % MCV 107.2 H (80-98) fL MCH 35.4 H (27.0-33.0) pg MCHC 33.0 (31.0-36.0) g/dl RDW 19.8 H (11.0-16.0) % Plt Count 124 L (160-400) X10*3/uL MPV 10.0 (9.4-12.4) fL Immature Gran % (Auto) 0.4 (0.0-0.4) % Neut % (Auto) 77.4 H (45-73) % Lymph % (Auto) 12.5 L (20-40) % Anderson % (Auto) 8.2 (2-11) % Eos % (Auto) 1.5 (0-4) % Baso % (Auto) 0.0 (0-2) % Lymph # (Auto) 1.0 L (1.2-4.9) X10*3/uL Anderson # (Auto) 0.6 (0.1-1.2) X10*3/uL Eos # (Auto) 0.1 (0.0-0.4) X10*3/uL Baso # (Auto) 0.0 (0.0-0.2) X10*3/uL Abs Immat Gran (auto) 0.03 (0.00-0.03) X10*3/uL Absolute Neuts (auto) 5.9 (2.0-8.3) X10*3/uL Absolute Nucleated RBC 0.000 (0.0-0.012) X10*3/uL Nucleated RBC % (auto) 0.0 (0.0-0.2) /100WBC PT 14.5 H (9.9-13.0) SEC INR 1.3 H (0.9-1.1) Sodium (135-145) mmol/L Potassium (3.3-5.1) mmol/L Chloride (96-108) mmol/L Carbon Dioxide (22-29) mmol/L Anion Gap (12-20) BUN (9-16) mg/dL Creatinine (0.5-1.4) mg/dL Estim Creat Clear Calc Estimated GFR Random Glucose (60-115) mg/dL Lactic Acid (0.5-2.0) mmol/L Calcium (8.4-10.2) mg/dL Total Bilirubin (0.0-1.0) mg/dL Direct Bilirubin (0.0-0.5) mg/dL AST (5-37) U/L ALT (0-40) U/L Alkaline Phosphatase (39-117) U/L Troponin I High Sens (<3.5-35.0) ng/L B-Natriuretic Peptide (<100) pg/mL Total Protein (6.5-8.0) g/dL Albumin (3.5-5.0) g/dL Stool Occult Blood POSITIVE (NEGATIVE) 05/08/21 05/08/21 05/08/21 Range/Units 13:07 13:07 13:07 WBC (4.8-10.8) X10*3/uL RBC (4.60-5.80) X10*6/uL Hgb (14.0-18.0) g/dl Hct (42-52) % MCV (80-98) fL MCH (27.0-33.0) pg MCHC (31.0-36.0) g/dl RDW (11.0-16.0) % Plt Count (160-400) X10*3/uL MPV (9.4-12.4) fL Immature Gran % (Auto) (0.0-0.4) % Neut % (Auto) (45-73) % Lymph % (Auto) (20-40) % Anderson % (Auto) (2-11) % Eos % (Auto) (0-4) % Baso % (Auto) (0-2) % Lymph # (Auto) (1.2-4.9) X10*3/uL Anderson # (Auto) (0.1-1.2) X10*3/uL Eos # (Auto) (0.0-0.4) X10*3/uL Baso # (Auto) (0.0-0.2) X10*3/uL Abs Immat Gran (auto) (0.00-0.03) X10*3/uL Absolute Neuts (auto) (2.0-8.3) X10*3/uL Absolute Nucleated RBC (0.0-0.012) X10*3/uL Nucleated RBC % (auto) (0.0-0.2) /100WBC PT (9.9-13.0) SEC INR (0.9-1.1) Sodium 142 (135-145) mmol/L Potassium 3.2 L (3.3-5.1) mmol/L Chloride 104 (96-108) mmol/L Carbon Dioxide 28 (22-29) mmol/L Anion Gap 13 (12-20) BUN 47 H D (9-16) mg/dL Creatinine 2.41 H (0.5-1.4) mg/dL Estim Creat Clear Calc 23.2 Estimated GFR 26 Random Glucose 78 D (60-115) mg/dL Lactic Acid 2.2 H* (0.5-2.0) mmol/L Calcium 8.2 L (8.4-10.2) mg/dL Total Bilirubin 6.8 H (0.0-1.0) mg/dL Direct Bilirubin 4.2 H (0.0-0.5) mg/dL AST 58 H (5-37) U/L ALT 30 (0-40) U/L Alkaline Phosphatase 132 H D (39-117) U/L Troponin I High Sens (<3.5-35.0) ng/L B-Natriuretic Peptide 1804 H (<100) pg/mL Total Protein 6.3 L (6.5-8.0) g/dL Albumin 2.5 L (3.5-5.0) g/dL Stool Occult Blood (NEGATIVE) 05/08/21 05/08/21 05/08/21 Range/Units 13:07 16:03 16:03 WBC 6.8 (4.8-10.8) X10*3/uL RBC 2.64 L (4.60-5.80) X10*6/uL Hgb 9.1 L (14.0-18.0) g/dl Hct 28.1 L (42-52) % MCV 106.4 H (80-98) fL MCH 34.5 H (27.0-33.0) pg MCHC 32.4 (31.0-36.0) g/dl RDW 19.9 H (11.0-16.0) % Plt Count 116 L (160-400) X10*3/uL MPV 9.7 (9.4-12.4) fL Immature Gran % (Auto) 0.4 (0.0-0.4) % Neut % (Auto) 75.1 H (45-73) % Lymph % (Auto) 14.3 L (20-40) % Anderson % (Auto) 8.3 (2-11) % Eos % (Auto) 1.8 (0-4) % Baso % (Auto) 0.1 (0-2) % Lymph # (Auto) 1.0 L (1.2-4.9) X10*3/uL Anderson # (Auto) 0.6 (0.1-1.2) X10*3/uL Eos # (Auto) 0.1 (0.0-0.4) X10*3/uL Baso # (Auto) 0.0 (0.0-0.2) X10*3/uL Abs Immat Gran (auto) 0.03 (0.00-0.03) X10*3/uL Absolute Neuts (auto) 5.1 (2.0-8.3) X10*3/uL Absolute Nucleated RBC 0.000 (0.0-0.012) X10*3/uL Nucleated RBC % (auto) 0.0 (0.0-0.2) /100WBC PT (9.9-13.0) SEC INR (0.9-1.1) Sodium 142 (135-145) mmol/L Potassium 3.0 L (3.3-5.1) mmol/L Chloride 104 (96-108) mmol/L Carbon Dioxide 27 (22-29) mmol/L Anion Gap 14 (12-20) BUN 44 H (9-16) mg/dL Creatinine 2.42 H (0.5-1.4) mg/dL Estim Creat Clear Calc 23.1 Estimated GFR 26 Random Glucose 89 (60-115) mg/dL Lactic Acid (0.5-2.0) mmol/L Calcium 7.9 L (8.4-10.2) mg/dL Total Bilirubin (0.0-1.0) mg/dL Direct Bilirubin (0.0-0.5) mg/dL AST (5-37) U/L ALT (0-40) U/L Alkaline Phosphatase (39-117) U/L Troponin I High Sens 26.4 (<3.5-35.0) ng/L B-Natriuretic Peptide (<100) pg/mL Total Protein (6.5-8.0) g/dL Albumin (3.5-5.0) g/dL Stool Occult Blood (NEGATIVE) 05/08/21 05/08/21 Range/Units 16:03 16:03 WBC (4.8-10.8) X10*3/uL RBC (4.60-5.80) X10*6/uL Hgb (14.0-18.0) g/dl Hct (42-52) % MCV (80-98) fL MCH (27.0-33.0) pg MCHC (31.0-36.0) g/dl RDW (11.0-16.0) % Plt Count (160-400) X10*3/uL MPV (9.4-12.4) fL Immature Gran % (Auto) (0.0-0.4) % Neut % (Auto) (45-73) % Lymph % (Auto) (20-40) % Anderson % (Auto) (2-11) % Eos % (Auto) (0-4) % Baso % (Auto) (0-2) % Lymph # (Auto) (1.2-4.9) X10*3/uL Anderson # (Auto) (0.1-1.2) X10*3/uL Eos # (Auto) (0.0-0.4) X10*3/uL Baso # (Auto) (0.0-0.2) X10*3/uL Abs Immat Gran (auto) (0.00-0.03) X10*3/uL Absolute Neuts (auto) (2.0-8.3) X10*3/uL Absolute Nucleated RBC (0.0-0.012) X10*3/uL Nucleated RBC % (auto) (0.0-0.2) /100WBC PT (9.9-13.0) SEC INR (0.9-1.1) Sodium (135-145) mmol/L Potassium (3.3-5.1) mmol/L Chloride (96-108) mmol/L Carbon Dioxide (22-29) mmol/L Anion Gap (12-20) BUN (9-16) mg/dL Creatinine (0.5-1.4) mg/dL Estim Creat Clear Calc Estimated GFR Random Glucose (60-115) mg/dL Lactic Acid 2.3 H* (0.5-2.0) mmol/L Calcium (8.4-10.2) mg/dL Total Bilirubin (0.0-1.0) mg/dL Direct Bilirubin (0.0-0.5) mg/dL AST (5-37) U/L ALT (0-40) U/L Alkaline Phosphatase (39-117) U/L Troponin I High Sens 25.6 (<3.5-35.0) ng/L B-Natriuretic Peptide (<100) pg/mL Total Protein (6.5-8.0) g/dL Albumin (3.5-5.0) g/dL Stool Occult Blood (NEGATIVE) ECG Data Attestation: I personally reviewed and interpreted this ECG as follows: ECG interpretation date: 05/08/21 ECG interpretation time: 11:57 Interpretation: Normal sinus rhythm with a first-degree AV block, normal MI, normal QRS, prolonged QT 5[address] ST depressions leads V1 through V3 unchanged from previous 04/29/2021 Discharge Plan Discharge Clinical Impression: Rectal bleed, Chronic kidney disease (CKD) stage G4/A1, severely decreased glomerular filtration rate (GFR) between 15-29 mL/min/1.73 square meter and albuminuria creatinine ratio less than 30 mg/g, Elevated liver enzymes, Anemia of chronic illness, Acquired pancytopenia Patient Disposition: [facility] Instructions: Rectal Bleeding (ED), Chronic Kidney Disease (ED), Anemia (ED), Pancytopenia (DC) Additional Instructions: Your blood counts are unchanged from previous You had no episodes of rectal bleeding while being here We spoke to the GI team and they recommended scheduling an outpatient sigmoidoscopy Continue the proctofoam Prescriptions: No Action (DME) pen needle, diabetic [BD Ultra-Fine Mini Pen Needle] 31 gauge x 3/16 needle See Rx Instructions .ROUTE .MEDSUPPLY Qty: 100 RF: 0 (DME) lancets [OneTouch Delica Plus Lancet] 30 gauge misc See Rx Instructions .Route Qty: 300 RF: 0 (DME) OneTouch Verio test strips Strip See Rx Instructions .ROUTE .MEDSUPPLY Qty: 3 RF: 3 vitamin A 10,000 unit capsule 1 cap PO DAILY Qty: 28 RF: 0 Tresiba FlexTouch U-100 100 unit/mL (3 mL) insulin pen 30 unit subcut DAILY@1700 RF: 0 acetaminophen 325 mg Tablet 650 mg PO Q4H PRN (Reason: Pain (Scale Score 1-3)) RF: 0 cetirizine 5 mg Tablet 5 mg PO BEDTIME RF: 0 cholecalciferol (vitamin D3) 25 mcg (1,000 unit) Tablet 25 mcg PO DAILY RF: 0 metoprolol tartrate 25 mg tablet 12.5 mg PO BID Qty: 60 RF: 0 hydrocortisone [Procto-Med HC] 2.5 % Cream With Perineal Applicator 1 appl MI BID RF: 0 docusate sodium [Colace] 100 mg Capsule 100 mg PO DAILY RF: 0 zinc sulfate 220 mg Capsule 220 mg PO DAILY RF: 0 omeprazole 20 mg capsule,delayed release(DR/EC) 40 mg PO DAILY RF: 0 prednisone 10 mg tablet See Rx Instructions .Route .COMPLEX Qty: 75 RF: 0 omega 1-uww-zvz-fish oil [Fish Oil] 1,200 (144-216) mg capsule 1 cap PO DAILY RF: 0 torsemide 20 mg tablet 20 mg PO BID RF: 0 polyethylene glycol 3350 [Miralax] 17 gram/dose powder 17 g PO DAILY RF: 0 Referrals: Xuan Sandhu MD [Physician] - 2 days
[2021-05-08 12:23] LABS: OBS1 POSITIVE (NEGATIVE)
[2021-05-08 12:24] LABS: OBS Int Ctl Valid YES
[2021-05-08 12:30] LABS: INTERNATIONAL NORM RATIO 1.3 (0.9-1.1); Prothrombin Time 14.5 SEC (9.9-13.0)
[2021-05-08 13:12] LABS: MANUAL DIFF FLAG NO
[2021-05-08 13:15] LABS: Eosinophils Absolute Auto 0.1 X10*3/uL (0.0-0.4); Eosinophils Percent Auto 1.5 % (0-4); Hematocrit 28.2 % (42-52); Hemoglobin 9.3 g/dl (14.0-18.0); Imm Gran Abs Auto 0.03 X10*3/uL (0.00-0.03); Imm Gran Pct Auto 0.4 % (0.0-0.4); Lymphocytes Percent Auto 12.5 % (20-40); Mean Corpuscular Hemoglobin 35.4 pg (27.0-33.0); Mean Corpuscular Volume 107.2 fL (80-98); Monocytes Absolute Auto 0.6 X10*3/uL (0.1-1.2); Monocytes Percent Auto 8.2 % (2-11); Neutrophils Absolute Auto 5.9 X10*3/uL (2.0-8.3); Neutrophils Percent Auto 77.4 % (45-73); Platelet Count 124 X10*3/uL (160-400); Red Blood Count 2.63 X10*6/uL (4.60-5.80); Red Cell Distribution Width 19.8 % (11.0-16.0); White Blood Count 7.6 X10*3/uL (4.8-10.8)
[2021-05-08 13:37] LABS: Alanine Aminotransferase 30 U/L (0-40); Albumin Level 2.5 g/dL (3.5-5.0); Alkaline Phosphatase 132 U/L (39-117); Anion Gap 13 (12-20); Aspartate Amino Transferase 58 U/L (5-37); Bilirubin Direct 4.2 mg/dL (0.0-0.5); Bilirubin Total 6.8 mg/dL (0.0-1.0); Blood Urea Nitrogen 47 mg/dL (9-16); Calcium 8.2 mg/dL (8.4-10.2); Carbon Dioxide 28 mmol/L (22-29); Chloride 104 mmol/L (96-108); Creatinine Clr Calc Pharmacy 23.2; Estimated Glomerular Filt Rate 26; Glucose Random 78 mg/dL (60-115); Potassium 3.2 mmol/L (3.3-5.1); Sodium 142 mmol/L (135-145); Total Protein 6.3 g/dL (6.5-8.0)
[2021-05-08 13:40] LABS: Lactic Acid 2.2 mmol/L (0.5-2.0)
[2021-05-08 13:42] LABS: Troponin-I High Sensitivity 26.4 ng/L (<3.5-35.0)
[2021-05-08 13:43] LABS: B Type Natriuretic Peptide 1804 pg/mL (<100)
[2021-05-08] MEDS: 0.9 % Sodium Chloride 500 ML 999 ML IV (14:35)
[2021-05-08 15:11] LABS: Reflex Lactate? Lactic Acid Added
[2021-05-08 15:46] VITALS: BP 118/47; PULSE 74; RESP 18; TEMP 36.5; O2SAT 93
[2021-05-08 16:13] LABS: MANUAL DIFF FLAG NO
[2021-05-08 16:15] LABS: Basophils Percent Auto 0.1 % (0-2); Eosinophils Absolute Auto 0.1 X10*3/uL (0.0-0.4); Eosinophils Percent Auto 1.8 % (0-4); Hematocrit 28.1 % (42-52); Hemoglobin 9.1 g/dl (14.0-18.0); Imm Gran Abs Auto 0.03 X10*3/uL (0.00-0.03); Imm Gran Pct Auto 0.4 % (0.0-0.4); Lymphocytes Percent Auto 14.3 % (20-40); Mean Corpuscular HGB Conc 32.4 g/dl (31.0-36.0); Mean Corpuscular Hemoglobin 34.5 pg (27.0-33.0); Mean Corpuscular Volume 106.4 fL (80-98); Mean Platelet Volume 9.7 fL (9.4-12.4); Monocytes Absolute Auto 0.6 X10*3/uL (0.1-1.2); Monocytes Percent Auto 8.3 % (2-11); Neutrophils Absolute Auto 5.1 X10*3/uL (2.0-8.3); Neutrophils Percent Auto 75.1 % (45-73); Platelet Count 116 X10*3/uL (160-400); Red Blood Count 2.64 X10*6/uL (4.60-5.80); Red Cell Distribution Width 19.9 % (11.0-16.0); White Blood Count 6.8 X10*3/uL (4.8-10.8)
[2021-05-08 16:30] LABS: Anion Gap 14 (12-20); Blood Urea Nitrogen 44 mg/dL (9-16); Calcium 7.9 mg/dL (8.4-10.2); Carbon Dioxide 27 mmol/L (22-29); Chloride 104 mmol/L (96-108); Creatinine Clr Calc Pharmacy 23.1; Estimated Glomerular Filt Rate 26; Glucose Random 89 mg/dL (60-115); Sodium 142 mmol/L (135-145)
[2021-05-08 16:34] LABS: Lactic Acid 2.3 mmol/L (0.5-2.0)
[2021-05-08 16:36] LABS: Troponin-I High Sensitivity 25.6 ng/L (<3.5-35.0)
[2021-05-08] MEDS: Potassium Chloride ER 20 MEQ TAB.ER.PRT PO (18:00)
[2021-05-08 18:11] LABS: Reflex Lactate? Lactic Acid Added
== END 2021-05-08 18:23 | disposition skilled nursing facility (03) ==
PROVIDERS: Nurse Practitioner Family; Emergency Provider Emergency Medicine; PCP Family Medicine Geriatric Medicine
DX: K62.5 Hemorrhage of anus and rectum (principal); E11.22 Type 2 diabetes mellitus with diabetic chronic kidney disease; I13.0 Hypertensive heart and chronic kidney disease with heart failure and stage 1 through stage 4 chronic kidney disease, or unspecified chronic kidney disease; N18.4 Chronic kidney disease, stage 4 (severe); I50.9 Heart failure, unspecified; D63.1 Anemia in chronic kidney disease; D61.818 Other pancytopenia; R17 Unspecified jaundice; R53.1 Weakness; I48.0 Paroxysmal atrial fibrillation; Z79.01 Long term (current) use of anticoagulants; Z23 Encounter for immunization
CPT/HCPCS: 36415; 80048; 80076; 82272; 83605; 83880; 84484; 85025; 85610; 90471; 90686; 93005; 96360; 99284

== ENCOUNTER 2021-05-18 15:45 | Inpatient (IN) | payer MEDICARE, SELFPAY ==
[2021-05-18] VITALS (8 sets, daily range): BP systolic 100–125; BP diastolic 27–53; PULSE 78–88; RESP 16–20; TEMP 36.6–36.9; O2SAT 96–100; BMI 26.7
--- NOTE | ~2021-05-18 | XR_ITS ---
EXAMINATION: XR CHEST CLINICAL INFORMATION: Central line placement COMPARISON: 05/21/2021 TECHNIQUE: Frontal view of the chest was obtained. FINDINGS: Dual lead left pectoral pacemaker terminates in the right atrium and right ventricle. Left IJ central venous catheter tip terminates in the SVC proximally. EKG leads overlie the chest. Unchanged mild cardiomegaly. Pulmonary venous congestion. No significant pulmonary edema. Persistent dense left intracardiac opacification. Probable left pleural effusion. Mild bibasilar atelectasis. No pneumothorax. No acute osseous findings. XR/XR chest 1V IMPRESSION: Left IJ central venous catheter tip terminates in the SVC. No pneumothorax. Unchanged left retrocardiac opacification. Probable small left pleural effusion. Cardiomegaly with pulmonary venous congestion.
--- NOTE | ~2021-05-18 | XR_ITS ---
EXAMINATION: XR CHEST CLINICAL INFORMATION: Shortness of breath. COMPARISON: 04/28/2021 TECHNIQUE: AP portable view of the chest was obtained. FINDINGS: Dual lead left pectoral pacemaker is unchanged with leads terminating in the right atrium and right right ventricle. EKG leads overlie the chest. Cardiac silhouette is borderline enlarged. There is persistent opacification at the left lung base, silhouetting left hemidiaphragm. Mild pulmonary venous congestion. No appreciable interstitial edema. Small left pleural effusion is possible. No right effusion. No pneumothorax. No new airspace consolidation. Calcific atherosclerosis is present in the thoracic aorta. Degenerative spondylosis is present in the thoracic spine. XR/XR chest 1V IMPRESSION: 1. No significant change in the persistent retrocardiac opacification at the left lung base which may correspond to a combination of atelectasis, consolidation, and/or effusion. 2. Pulmonary venous congestion and borderline cardiomegaly.
[2021-05-18 16:11] LABS: MANUAL DIFF FLAG NO
[2021-05-18 16:14] LABS: Eosinophils Absolute Auto 0.1 X10*3/uL (0.0-0.4); Eosinophils Percent Auto 2.3 % (0-4); Hematocrit 21.8 % (42.0-52.0); Hemoglobin 7.2 g/dl (14.0-18.0); Imm Gran Abs Auto 0.03 X10*3/uL (0.00-0.03); Imm Gran Pct Auto 0.5 % (0.0-0.4); Lymphocytes Absolute Auto 0.6 X10*3/uL (1.2-4.9); Lymphocytes Percent Auto 10.2 % (20-40); Mean Platelet Volume 10.3 fL (9.4-12.4); Monocytes Absolute Auto 0.5 X10*3/uL (0.1-1.2); Monocytes Percent Auto 7.3 % (2-11); Neutrophils Absolute Auto 4.9 x10*3/uL (2.0-8.3); Neutrophils Percent Auto 79.7 % (45-73); Platelet Count 110 X10*3/uL (160-400); White Blood Count 6.2 X10*3/uL (4.8-10.8)
[2021-05-18 16:19] LABS: INTERNATIONAL NORM RATIO 1.3 (0.9-1.1); Prothrombin Time 14.6 SEC (9.9-13.0)
[2021-05-18 16:34] LABS: Alanine Aminotransferase 60 U/L (0-40); Albumin Level 2.5 g/dL (3.5-5.0); Alkaline Phosphatase 126 U/L (39-117); Anion Gap 15 (12-20); Aspartate Amino Transferase 69 U/L (5-37); Bilirubin Total 6.7 mg/dL (0.0-1.0); Blood Urea Nitrogen 35 mg/dL (9-16); Calcium 7.4 mg/dL (8.4-10.2); Carbon Dioxide 24 mmol/L (22-29); Chloride 104 mmol/L (96-108); Creatinine Clr Calc Pharmacy 24.5; Estimated Glomerular Filt Rate 28; Glucose Random 76 mg/dL (60-115); Potassium 3.4 mmol/L (3.3-5.1); Sodium 140 mmol/L (135-145); Total Protein 5.6 g/dL (6.5-8.0)
--- NOTE | 2021-05-18 16:50 | ED_ITS ---
HPI - Recheck/Abnormal Lab/Rx General Chief Complaint: Recheck/Abnormal Lab/Rx Stated Complaint: abnormal labs Time Seen by Provider: 05/18/21 16:49 Source: patient and RN notes reviewed Mode of arrival: EMS History of Present Illness HPI narrative: Patient with history of recurrent GI bleed with significant anemia requiring blood transfusions, acquired pancytopenia aortic stenosis chronic renal disease sent [facility] for hemoglobin 7.2 hematocrit 21.8 . patient just feeling weak no other complaint no shortness of breath or chest pain no palpitation admitted here on 04/28 for same had rectal bleeding at that time secondary to radiation proctitis patient received 2 units of PRBC on 04/30 patient discharged on 05/03 with hemoglobin of 8.2. Had colonoscopy and endoscopy on 03/28 which showed small flat varices without any high-risk stigmata mild esophagitis with patchy gastric erythema with mild gastric antral vascular ectasia, no active bleeding fluoroscopy showed oozing of blood from actinic lesions in the rectum from radiation proctitis Related Data Home Medications Medication Instructions Recorded Confirmed omega 5-mps-gbu-fish oil 1,200 mg 1 cap PO DAILY cap 05/29/20 05/18/21 (144 mg-216 mg) capsule (Fish Oil) torsemide 20 mg tablet 20 mg PO BID 10/03/20 05/18/21 polyethylene glycol 3350 17 17 g PO DAILY 12/12/20 05/18/21 gram/dose oral powder (Miralax) insulin degludec 100 unit/mL (3 30 unit SUBCUT DAILY@1700 01/08/21 05/18/21 mL) subcutaneous pen (Tresiba FlexTouch U-100 insulin) acetaminophen 325 mg tablet 650 mg PO Q4H PRN 03/26/21 05/18/21 cetirizine 5 mg tablet 5 mg PO BEDTIME 03/26/21 05/18/21 cholecalciferol (vitamin D3) 25 25 mcg PO DAILY 03/26/21 05/18/21 mcg (1,000 unit) tablet docusate sodium 100 mg capsule 100 mg PO DAILY 04/28/21 05/18/21 (Colace) hydrocortisone 2.5 % topical cream 1 appl [place] BID 04/28/21 04/28/21 with perineal applicator (Procto-Med HC) omeprazole 20 mg capsule,delayed 40 mg PO DAILY 04/28/21 05/18/21 release zinc sulfate 220 mg capsule 220 mg PO DAILY 04/28/21 04/28/21 Previous Rx's Medication Instructions Recorded pen needle, diabetic 31 gauge x #100 ea 02/20/2109/26 (BD Ultra-Fine Mini Pen Needle) blood sugar diagnostic (OneTouch #3 03/05/21 Verio test strips) lancets 30 gauge (OneTouch Delica #300 ea 03/05/21 Plus Lancet) vitamin A 10,000 unit capsule 1 cap PO DAILY #28 cap 03/27/21 metoprolol tartrate 25 mg tablet 12.5 mg PO BID #60 tab 04/12/21 prednisone 10 mg tablet See Rx Instructions .ROUTE 05/03/21 .COMPLEX #75 tab Allergies Allergy/AdvReac Type Severity Reaction Status Date / Time No Known Allergies Allergy Verified 03/17/21 17:45 [No Known Allergies*] Review of Systems Review of Systems: Yes all other systems are reviewed and are negative [facility] Past Medical History Medical History AAA (abdominal aortic aneurysm) Abdominal aortic aneurysm Atrial fibrillation Chronic kidney disease (CKD) stage G4/A1, severely decreased glomerular filtration rate (GFR) between 15-29 mL/min/1.73 square meter and albuminuria creatinine ratio less than 30 mg/g Congestive heart failure Coronary artery disease History of CVA (cerebrovascular accident) History of prostate cancer Hypercholesterolemia Hypertension Insomnia Legally blind in right eye, as defined in [place] Obesity (BMI 30-39.9) Peripheral vascular disease Renal artery stenosis Retinal detachment Sick sinus syndrome Type 2 diabetes mellitus with hyperglycemia Venous bleed Surgical History H/O colonoscopy H/O esophagogastroduodenoscopy History of cataract surgery History of pacemaker History of prostatectomy History of thumb surgery History of tonsillectomy Hx of cystoscopy Renal calculi Family History Family History Father Heart problem Diabetes Prostate cancer Mother Acute leukemia Social History Social History Household Members: Other Housing: Shelter Do you presently have visiting nurse or other home services: No Alcohol intake: never Patient Tobacco Use Status: Former Tobacco user Quit Date: 2004 Years Smoked: Cannot remember e-Cigarette/Vaping Use: Never Used Second Hand Smoke Exposure: No Advance Directives: No Advance Directives Information Provided: No Advance Directives Date on File: 10/06/20 service: Yes (UNSURE ABOUT CONNECTION) Current occupational status: retired Physical Exam Vital Signs: Vital Signs: Last Vital Signs Temp 97.8 F 05/18/21 21:30 Pulse 78 05/18/21 21:30 Resp 16 05/18/21 21:30 BP 105/39 L 05/18/21 21:30 Pulse Ox 98 05/18/21 21:18 Body Mass Index 26.7 Appearance: Alert. Oriented X3. No acute distress. Eyes: PERRLA, No Nystagmus pallor++ ENT: Pharynx normal. Oral Mucosa moist Neck: Normal inspection. Neck supple. CVS: Irregularly irregular heart rate Systolic ejection murmur at base Pulses normal. Respiratory: No respiratory distress. Equal air entry bilateral, no wheezing/rales/rhonchi Abdomen: Soft and nontender. Bowel sounds are present, no mass palpable, no CVA tenderness Rectal: Black stools, guaiac positive Skin: Skin warm and dry. Normal skin color. Normal skin turgor. Extremities: trace lower extremity edema. No calf tenderness Neuro: Oriented X 3. No motor deficit. No sensory deficit.No cerebellar signs , cranial nerves II-XII intact MDM - Recheck/Abnormal Lab/Rx MDM Narrative Medical decision making narrative: Patient with recurrent GI bleed at this time patient has melena hemoglobin dropped from 9.4 to 7.2 within 2 weeks after 2 units of blood transfusion rectal exam showed black stools guaiac positive patient received 1 unit of blood in the ER will admit patient for further evaluation start on Protonix patient recently had colonoscopy and endoscopy on 03/28 Lab Data Attestation: I reviewed the patient's lab results. Result diagrams: 05/18/21 22:49 05/18/21 16:05 Labs: Lab Results 05/18/21 05/18/21 05/18/21 Range/Units 16:05 16:05 16:05 WBC 6.2 (4.8-10.8) X10*3/uL RBC 2.00 L (4.60-5.80) X10*6/uL Hgb 7.2 L (14.0-18.0) g/dl Hct 21.8 L (42.0-52.0) % MCV 109.0 H (80.0-98.0) fL MCH 36.0 H (27.0-33.0) pg MCHC 33.0 (31.0-36.0) g/dl RDW 18.0 H (11.0-16.0) % Plt Count 110 L (160-400) X10*3/uL MPV 10.3 (9.4-12.4) fL Immature Gran % (Auto) 0.5 H (0.0-0.4) % Neut % (Auto) 79.7 H (45-73) % Lymph % (Auto) 10.2 L (20-40) % [place] % (Auto) 7.3 (2-11) % Eos % (Auto) 2.3 (0-4) % Baso % (Auto) 0.0 (0-2) % Lymph # (Auto) 0.6 L (1.2-4.9) X10*3/uL [place] # (Auto) 0.5 (0.1-1.2) X10*3/uL Eos # (Auto) 0.1 (0.0-0.4) X10*3/uL Baso # (Auto) 0.0 (0.0-0.2) X10*3/uL Abs Immat Gran (auto) 0.03 (0.00-0.03) X10*3/uL Absolute Neuts (auto) 4.9 (2.0-8.3) x10*3/uL Absolute Nucleated RBC 0.000 (0.0-0.012) X10*3/uL Nucleated RBC % (auto) 0.0 (0.0-0.2) /100WBC PT 14.6 H (9.9-13.0) SEC INR 1.3 H (0.9-1.1) Sodium 140 (135-145) mmol/L Potassium 3.4 (3.3-5.1) mmol/L Chloride 104 (96-108) mmol/L Carbon Dioxide 24 (22-29) mmol/L Anion Gap 15 (12-20) BUN 35 H (9-16) mg/dL Creatinine 2.28 H (0.5-1.4) mg/dL Estim Creat Clear Calc 24.5 Estimated GFR 28 Random Glucose 76 (60-115) mg/dL Calcium 7.4 L D (8.4-10.2) mg/dL Total Bilirubin 6.7 H (0.0-1.0) mg/dL AST 69 H (5-37) U/L ALT 60 H (0-40) U/L Alkaline Phosphatase 126 H (39-117) U/L Total Protein 5.6 L (6.5-8.0) g/dL Albumin 2.5 L (3.5-5.0) g/dL Stool Occult Blood (NEGATIVE) Blood Type Antibody Screen Crossmatch 05/18/21 05/18/21 Range/Units 16:18 20:02 WBC (4.8-10.8) X10*3/uL RBC (4.60-5.80) X10*6/uL Hgb (14.0-18.0) g/dl Hct (42.0-52.0) % MCV (80.0-98.0) fL MCH (27.0-33.0) pg MCHC (31.0-36.0) g/dl RDW (11.0-16.0) % Plt Count (160-400) X10*3/uL MPV (9.4-12.4) fL Immature Gran % (Auto) (0.0-0.4) % Neut % (Auto) (45-73) % Lymph % (Auto) (20-40) % [place] % (Auto) (2-11) % Eos % (Auto) (0-4) % Baso % (Auto) (0-2) % Lymph # (Auto) (1.2-4.9) X10*3/uL [place] # (Auto) (0.1-1.2) X10*3/uL Eos # (Auto) (0.0-0.4) X10*3/uL Baso # (Auto) (0.0-0.2) X10*3/uL Abs Immat Gran (auto) (0.00-0.03) X10*3/uL Absolute Neuts (auto) (2.0-8.3) x10*3/uL Absolute Nucleated RBC (0.0-0.012) X10*3/uL Nucleated RBC % (auto) (0.0-0.2) /100WBC PT (9.9-13.0) SEC INR (0.9-1.1) Sodium (135-145) mmol/L Potassium (3.3-5.1) mmol/L Chloride (96-108) mmol/L Carbon Dioxide (22-29) mmol/L Anion Gap (12-20) BUN (9-16) mg/dL Creatinine (0.5-1.4) mg/dL Estim Creat Clear Calc Estimated GFR Random Glucose (60-115) mg/dL Calcium (8.4-10.2) mg/dL Total Bilirubin (0.0-1.0) mg/dL AST (5-37) U/L ALT (0-40) U/L Alkaline Phosphatase (39-117) U/L Total Protein (6.5-8.0) g/dL Albumin (3.5-5.0) g/dL Stool Occult Blood POSITIVE (NEGATIVE) Blood Type O Negative Antibody Screen NEGATIVE Crossmatch See Detail Discharge Plan Discharge Clinical Impression: Severe anemia GI (gastrointestinal bleed) Qualifiers: GI bleed type/associated pathology: melena Qualified Code(s): K92.1 - Melena Chronic kidney disease Qualifiers: Chronic kidney disease stage: stage 3 (moderate) Chronic kidney disease stage 3 subtype: stage 3b (GFR 30-44) Qualified Code(s): N18.32 - Chronic kidney disease, stage 3b Patient Disposition: Admitted As Inpatient
--- NOTE | 2021-05-18 19:59 | PC.NURSE ---
at bedside to obtain OBS. This RN as certified optician, pt tolerating procedure well. Sample sent to lab. Per MD, plan for admission. Pt aware.
[2021-05-18 20:13] LABS: OBS Int Ctl Valid YES; OBS1 POSITIVE (NEGATIVE)
[2021-05-18] MEDS: Pantoprazole Sodium 40 MG/10 ML VIAL IVPUSH (20:17)
--- NOTE | 2021-05-18 21:30 | PM.IMHP ---
History of Present Illness Date of Service: 05/18/21 Chief Complaint: Low hemoglobin 81-year-old male with extensive past medical history including AFib not on anticoagulation, history of AAA, CKD, CHF, CAD, CVA, prostate cancer status post prostatectomy, HTN, type 2 diabetes who [facility] the hospital [facility] after labs show low hemoglobin. Patient reports that he has not had any symptoms including no chest pain, some dizziness but no headache, no blurry vision, no shortness of breath, no abdominal pain nausea or vomiting, no diarrhea or constipation, he is not aware of any melena or bright red blood per rectum, no lower extremity edema more than usual. Of note patient was discharged from the hospital on and during that admission patient did require is blood transfusion for acute anemia. He was also evaluated by GI which felt that his anemia is most likely multifactorial including secondary to his history of CKD, hematological disease, as well as radiation proctitis. He on 03/28 for presenting with the same low hemoglobin, and found to have actively bleeding radiation proctitis, hemorrhoids, polyps, diverticular disease. On arrival to the ED patient hemodynamically stable with no significant abnormal vitals Labs are significant for 7.2 the dropped from 9.1 on 05/08, PT of 14.6, INR of 1.3, BUN of 35, creatinine of 2.28 which is around his baseline, elevated LFTs around his baseline, Patient's hemoglobin today 7.2, which dropped from 9 on discharge, he has melena, and positive occult stool. ED physician does not feel comfortable sending patient home as patient has black stools and is concerned about upper GI bleed Will admit patient for further management Review of Systems Review of Systems: Yes all other systems are reviewed and are negative [facility] Medical History AAA (abdominal aortic aneurysm) Abdominal aortic aneurysm Atrial fibrillation Chronic kidney disease (CKD) stage G4/A1, severely decreased glomerular filtration rate (GFR) between 15-29 mL/min/1.73 square meter and albuminuria creatinine ratio less than 30 mg/g Congestive heart failure Coronary artery disease History of CVA (cerebrovascular accident) History of prostate cancer Hypercholesterolemia Hypertension Insomnia Legally blind in right eye, as defined in [place] Obesity (BMI 30-39.9) Peripheral vascular disease Renal artery stenosis Retinal detachment Sick sinus syndrome Type 2 diabetes mellitus with hyperglycemia Venous bleed Family History Father Heart problem Diabetes Prostate cancer Mother Acute leukemia Pertinent family history: Diabetes, heart problem Surgical History H/O colonoscopy H/O esophagogastroduodenoscopy History of cataract surgery History of pacemaker History of prostatectomy History of thumb surgery History of tonsillectomy Hx of cystoscopy Renal calculi Social History Household Members: Other Housing: [facility] Do you presently have visiting nurse or other home services: No Alcohol intake: never Patient Tobacco Use Status: Former Tobacco user Quit Date: 2004 Smoked: Cannot remember e-Cigarette/Vaping Use: Never Used Second Hand Smoke Exposure: No Use of substances other than those prescribed or required for medical reasons: No Advance Directives: No Advance Directives Information Provided: No Advance Directives Date on File: 10/06/20 service: Yes (UNSURE ABOUT CONNECTION) Current occupational status: retired [employer] Allergies Allergy/AdvReac Type Severity Reaction Status Date / Time No Known Allergies Allergy Verified 03/17/21 17:45 [No Known Allergies*] Home Medications Medication Instructions Recorded Confirmed Last Taken Type omega 4-rnk-nty-fish oil 1,200 mg 1 cap PO DAILY cap 05/29/20 05/18/21 03/17/21 History (144 mg-216 mg) capsule (Fish Oil) torsemide 20 mg tablet 20 mg PO BID 10/03/20 05/18/21 03/17/21 History polyethylene glycol 3350 17 17 g PO DAILY 12/12/20 05/18/21 03/17/21 History gram/dose oral powder (Miralax) insulin degludec 100 unit/mL (3 30 unit SUBCUT DAILY@1700 01/08/21 05/18/21 03/17/21 History mL) subcutaneous pen (Tresiba FlexTouch U-100 insulin) acetaminophen 325 mg tablet 650 mg PO Q4H PRN 03/26/21 05/18/21 Unknown History cetirizine 5 mg tablet 5 mg PO BEDTIME 03/26/21 05/18/21 Unknown History cholecalciferol (vitamin D3) 25 25 mcg PO DAILY 03/26/21 05/18/21 Unknown History mcg (1,000 unit) tablet docusate sodium 100 mg capsule 100 mg PO DAILY 04/28/21 05/18/21 Unknown History (Colace) hydrocortisone 2.5 % topical cream 1 appl ND BID 04/28/21 04/28/21 Unknown History with perineal applicator (Procto-Med HC) omeprazole 20 mg capsule,delayed 40 mg PO DAILY 04/28/21 05/18/21 Unknown History release zinc sulfate 220 mg capsule 220 mg PO DAILY 04/28/21 04/28/21 Unknown History Physical Exam Vital Signs and Narrative: Vital Signs: Last Vital Signs Temp 97.8 F 05/18/21 19:06 Pulse 78 05/18/21 21:18 Resp 16 05/18/21 21:18 BP 105/39 L 05/18/21 21:18 Pulse Ox 98 05/18/21 21:18 Body Mass Index 26.7 Const: General: cooperative and no acute distress Orientation/consciousness: patient oriented x3 Eyes: General: appearance normal, both eyes and all related structures Resp: Effort & Inspection: normal respiratory effort Auscultation: clear to auscultation bilaterally Cardio: Rate: regular rate Rhythm: regular rhythm GI: Palpation (GI): Soft to palpation Skin: Other: Jaundiced Neuro: General: patient oriented x3 Cognition (Neuro): normal cognition Extrem: Other: 2+ pitting edema General: Yes normal to inspection Results Labs CBC and Chem 7: 05/18/21 22:49 05/18/21 16:05 Labs: Laboratory Results - last 24 hr 05/18/21 05/18/21 05/18/21 16:05 16:05 16:05 MCV 109.0 H MCH 36.0 H MCHC 33.0 RDW 18.0 H Plt Count 110 L MPV 10.3 Immature Gran % (Auto) 0.5 H Neut % (Auto) 79.7 H Lymph % (Auto) 10.[address] [place] % (Auto) 7.3 Eos % (Auto) 2.3 Baso % (Auto) 0.0 Lymph # (Auto) 0.[address] [place] # (Auto) 0.5 Eos # (Auto) 0.1 Baso # (Auto) 0.0 Abs Immat Gran (auto) 0.03 Absolute Neuts (auto) 4.9 Absolute Nucleated RBC 0.000 Nucleated RBC % (auto) 0.0 PT 14.6 H INR 1.3 H Anion Gap 15 Estim Creat Clear Calc 24.5 Estimated GFR 28 Random Glucose 76 Calcium 7.4 L D Total Bilirubin 6.7 H AST 69 H ALT 60 H Alkaline Phosphatase 126 H Total Protein 5.6 L Albumin 2.5 L Stool Occult Blood Blood Type Antibody Screen Crossmatch 05/18/21 05/18/21 16:18 20:02 MCV MCH MCHC RDW Plt Count MPV Immature Gran % (Auto) Neut % (Auto) Lymph % (Auto) [place] % (Auto) Eos % (Auto) Baso % (Auto) Lymph # (Auto) [place] # (Auto) Eos # (Auto) Baso # (Auto) Abs Immat Gran (auto) Absolute Neuts (auto) Absolute Nucleated RBC Nucleated RBC % (auto) PT INR Anion Gap Estim Creat Clear Calc Estimated GFR Random Glucose Calcium Total Bilirubin AST ALT Alkaline Phosphatase Total Protein Albumin Stool Occult Blood POSITIVE Blood Type O Negative Antibody Screen NEGATIVE Crossmatch See Detail Assessment and Plan (1) Severe anemia: Status: Acute (2) GI (gastrointestinal bleed): Qualifiers: GI bleed type/associated pathology: melena Qualified Code(s): K92.1 - Melena Status: Acute (3) Chronic kidney disease: Qualifiers: Chronic kidney disease stage: stage 3 (moderate) Chronic kidney disease stage 3 subtype: stage 3b (GFR 30-44) Qualified Code(s): N18.32 - Chronic kidney disease, stage 3b Status: Acute (4) Transaminitis: Status: Acute (5) Hyperbilirubinemia: Status: Acute 81-year-old male with multiple medical issues including chronic anemia with multiple admissions for the same reason presents to the hospital with findings of acute anemia # acute on chronic anemia - most likely multifactorial, secondary to history of radiation proctitis, he also was found to have polyps on colonoscopy, he also has a CKD as well as possible myelodysplasia on workup in the past - patient hemoglobin did drop from 9.1 on 05/02 6-7.2, found to have melena positive for occult stool - at this time will start him on PPI 40 IV b.i.d. - consult GI for possible EGD - patient received 1 unit of PRBC in the ED, will follow CBC # GI bleed - upper versus lower GI - chronic elevated BUN - no evidence of acute active - patient will be receiving 1 unit of PRBC, will follow H&H # transaminitis, hyperbilirubinemia - evaluated by GI and past admission on 04/29 felt to be secondary to hepatic congestion, splenic congestion, nutritional deficiency - patient was supposed to follow-up outpatient for liver biopsy but had not gotten a chest, he was scheduled for May 21 - will trend LFT - consult GI # diabetes - continue Tresiba, add low-dose sliding scale insulin, diabetic diet # history of CHF - no exacerbation - continue torsemide DVT prophylaxis: SCD Quality Stroke Does the patient have a stroke diagnosis?: No VTE Prior VTE?: No VTE Risk Level:: Medical - moderate - high VTE Device Contraindication: Treatment Not Indicated VTE Drug Contraindication: N/A - Med Ordered
--- NOTE | 2021-05-18 21:33 | PC.NURSE ---
Patient received 1 unit of blood. VSS. NSR on tele .A+ox4, tired. meds given per MAR. patient utilized bedpan and urinal. Patient med rec completed.
[2021-05-18 23:01] LABS: Hemoglobin 8.2 g/dl (14.0-18.0)
[2021-05-19] VITALS (9 sets, daily range): BP systolic 98–142; BP diastolic 43–58; PULSE 65–87; RESP 14–20; TEMP 36.1–36.6; O2SAT 95–98
--- NOTE | 2021-05-19 00:34 | PC.NURSE ---
pt a&o, no sob or chest pain. pt assisted to the bathroom. medicated per mar and provided a drink. pt back in bed . Call locke in reach. Safety lock in place.
[2021-05-19 06:04] LABS: Hemoglobin 7.8 g/dl (14.0-18.0); MANUAL DIFF FLAG SCAN; PLT CLUMP 1; SCAN SMEAR FLAG 1
[2021-05-19 06:06] LABS: Eosinophils Absolute Auto 0.1 X10*3/uL (0.0-0.4); Eosinophils Percent Auto 2.3 % (0-4); Hematocrit 23.4 % (42.0-52.0); Imm Gran Abs Auto 0.03 X10*3/uL (0.00-0.03); Imm Gran Pct Auto 0.6 % (0.0-0.4); Lymphocytes Absolute Auto 0.6 X10*3/uL (1.2-4.9); Lymphocytes Percent Auto 10.9 % (20-40); Mean Corpuscular HGB Conc 33.3 g/dl (31.0-36.0); Mean Corpuscular Hemoglobin 35.3 pg (27.0-33.0); Mean Corpuscular Volume 105.9 fL (80.0-98.0); Mean Platelet Volume 10.4 fL (9.4-12.4); Monocytes Absolute Auto 0.3 X10*3/uL (0.1-1.2); Neutrophils Absolute Auto 4.1 x10*3/uL (2.0-8.3); Neutrophils Percent Auto 80.2 % (45-73); Red Blood Count 2.21 X10*6/uL (4.60-5.80); White Blood Count 5.2 X10*3/uL (4.8-10.8)
--- NOTE | 2021-05-19 06:06 | PC.NURSE ---
PT INCONTINENT OF URINE. COMPLETE BED CHANGE AND CM CARE. URINAL PLACED AT THE BEDSIDE. EDUCATION ON THE URINAL
[2021-05-19 06:10] LABS: Platelet Count 94 X10*3/uL (160-400)
[2021-05-19] MEDS: 0.9 % Sodium Chloride Flush 3 ML SYRINGE IVFLUSH ×4 (06:12→20:06)
[2021-05-19 06:22] LABS: Anion Gap 14 (12-20); Blood Urea Nitrogen 32 mg/dL (9-16); Calcium 7.4 mg/dL (8.4-10.2); Carbon Dioxide 26 mmol/L (22-29); Chloride 102 mmol/L (96-108); Creatinine Clr Calc Pharmacy 26.9; Estimated Glomerular Filt Rate 31; Glucose Random 87 mg/dL (60-115); Potassium 2.9 mmol/L (3.3-5.1); Sodium 139 mmol/L (135-145)
[2021-05-19 06:26] LABS: SLIDE REVIEW VERIFIED
[2021-05-19] MEDS: Pantoprazole Sodium 40 MG/10 ML VIAL IVPUSH ×2 (06:37→16:59)
--- NOTE | 2021-05-19 06:38 | PC.NURSE ---
medicated per mar
--- NOTE | 2021-05-19 07:21 | PC.NURSE ---
Pt resting in bed with eyes closed. Appears comfortable. Report given to S3 RN.
[2021-05-19 07:55] LABS: Glucose, Whole Blood 93 mg/dL (60-115)
[2021-05-19] MEDS: Torsemide 20 MG TABLET PO ×2 (09:22→20:05)
[2021-05-19] MEDS: polyethylene glycoL 3350 17 GM POWD.PACK PO (09:22)
[2021-05-19] MEDS: Cholecalciferol (Vitamin D3) 25 MCG TABLET PO (09:22)
[2021-05-19] MEDS: Docusate Sodium 100 MG CAPSULE PO (09:22)
[2021-05-19] MEDS: Metoprolol Tartrate 12.5 MG HALFTAB PO ×2 (09:56→20:05)
--- NOTE | 2021-05-19 10:09 | MHC.CM.PN ---
PATIENT IS IN FROM [facility] [address] WHERE HE WAS DC TO FROM [facility] [place] PLAN IS FOR RETURN TO COMPLETE REHAB SERVICES. PATIENT HAS BEEN USING A WHEELED WALKER AT FACILITY AND STATES THAT HE IS AN ASSIST FOR AMBULATION IMM 11 IN CHART. HCP AND MOLST ON FILE AND VERIFIED. CM FOLLOWING FOR PATIENT'S RETURN TO FACILITY. IMM 11 IN CHART
--- NOTE | 2021-05-19 11:37 | HO.PM.IMPN ---
Subjective Subjective Date of Service: 05/19/21 Interval History: No acute events overnight. No evidence of rectal bleeding. Review of Systems Denies chest pain Denies shortness of breath Denies nausea vomiting diarrhea Physical Exam Vital Signs: Vital Signs: Last Vital Signs Temp 97 F 05/19/21 07:50 Pulse 84 05/19/21 09:56 Resp 20 05/19/21 07:50 BP 142/58 H 05/19/21 09:56 Pulse Ox 96 05/19/21 07:50 Body Mass Index 26.7 Const: Other: Awake alert oriented x3 no acute distress HENMT: Other: Membranes moist Resp: Other: Clear to auscultation bilaterally. No rales rhonchi or wheezes Cardio: Other: No S4; positive S1-S2; no S3 murmurs rubs gallops GI: Other: Soft nontender nondistended with normoactive bowel sounds. Extrem: Other: No edema bilaterally Objective Data Active Medications Acetaminophen (Acetaminophen 325 Mg Tablet) 650 mg PO Q6H PRN PRN Reason: Pain, Mild (Pain Scale 1-3) Dextrose (Dextrose 50 % 25 Gm/50 Ml Vial) 25 gm IVPUSH Q15M PRN; Protocol PRN Reason: per Hypoglycemia Standing Ord. Docusate Sodium (Docusate Sodium 100 Mg Capsule) 100 mg PO DAILY [facility] Last Admin: 05/19/21 09:22 Dose: 100 mg Documented by: COTEMA Glucose (Glucose Gel 15 Gm Gel..Gram.) 15 gm PO Q15M PRN; Protocol PRN Reason: per Hypoglycemia Standing Ord. Insulin Human Lispro (Insulin Lispro 100 Unit/Ml 3 Ml Vial) 0 unit SUBCUT QIDACHS [facility]; Protocol Last Admin: 05/19/21 07:15 Dose: Not Given Documented by: ALEIDA Non-Admin Reason: Pt NPO? Loratadine (Loratadine 10 Mg Tablet) 10 mg PO BEDTIME [facility] Metoprolol Tartrate (Metoprolol Tartrate 12.5 Mg Halftab) 12.5 mg PO BID [facility]; Protocol Last Admin: 05/19/21 09:56 Dose: 12.5 mg Documented by: KYLE Non-Formulary Medication (Insulin Degludec [Tresiba Flextouch U-100]) 30 unit SUBCUT DAILY@1700 [facility] Ondansetron HCl (Ondansetron Hcl 4 Mg/2 Ml Vial) 4 mg IVPUSH Q8H PRN PRN Reason: Nausea and Vomiting Pantoprazole Sodium (Pantoprazole Sodium 40 Mg/10 Ml Vial) 40 mg IVPUSH BID@0630,1630 [facility] Last Admin: 05/19/21 06:37 Dose: 40 mg Documented by: FRANCISCA Polyethylene Glycol (Polyethylene Glycol 3350 17 Gm Powd.Pack) 17 gm PO DAILY [facility] Last Admin: 05/19/21 09:22 Dose: 17 gm Documented by: KYLE Sodium Chloride (0.9 % Sodium Chloride Flush 3 Ml Syringe) 3 ml IVFLUSH QSHIFT [facility] Last Admin: 05/19/21 09:23 Dose: 3 ml Documented by: KYLE Torsemide (Torsemide 20 Mg Tablet) 20 mg PO BID [facility]; Protocol Last Admin: 05/19/21 09:22 Dose: 20 mg Documented by: KYLE Vitamin D (Cholecalciferol (Vitamin D3) 25 Mcg Tablet) 25 mcg PO DAILY [facility] Last Admin: 05/19/21 09:22 Dose: 25 mcg Documented by: KYLE Labs CBC & Chem 7: 05/19/21 05:32 05/19/21 05:31 Labs: Laboratory Results - last 24 hr 05/18/21 05/18/21 05/18/21 16:05 16:05 16:05 Hgb 7.2 L MCV 109.0 H MCH 36.0 H MCHC 33.0 RDW 18.0 H Plt Count 110 L MPV 10.3 Immature Gran % (Auto) 0.5 H Neut % (Auto) 79.7 H Lymph % (Auto) 10.2 L [place] % (Auto) 7.3 Eos % (Auto) 2.3 Baso % (Auto) 0.0 Lymph # (Auto) 0.6 L [place] # (Auto) 0.5 Eos # (Auto) 0.1 Baso # (Auto) 0.0 Abs Immat Gran (auto) 0.03 Absolute Neuts (auto) 4.9 Absolute Nucleated RBC 0.000 Nucleated RBC % (auto) 0.0 Smear Tech's Comments PT 14.6 H INR 1.3 H Anion Gap 15 Estim Creat Clear Calc 24.5 Estimated GFR 28 POC Glucose Random Glucose 76 Calcium 7.4 L D Total Bilirubin 6.7 H AST 69 H ALT 60 H Alkaline Phosphatase 126 H Total Protein 5.6 L Albumin 2.5 L Stool Occult Blood Blood Type Antibody Screen Crossmatch 05/18/21 05/18/21 05/18/21 16:18 20:02 22:49 Hgb 8.2 L MCV MCH MCHC RDW Plt Count MPV Immature Gran % (Auto) Neut % (Auto) Lymph % (Auto) [place] % (Auto) Eos % (Auto) Baso % (Auto) Lymph # (Auto) [place] # (Auto) Eos # (Auto) Baso # (Auto) Abs Immat Gran (auto) Absolute Neuts (auto) Absolute Nucleated RBC Nucleated RBC % (auto) Smear Tech's Comments PT INR Anion Gap Estim Creat Clear Calc Estimated GFR POC Glucose Random Glucose Calcium Total Bilirubin AST ALT Alkaline Phosphatase Total Protein Albumin Stool Occult Blood POSITIVE Blood Type O Negative Antibody Screen NEGATIVE Crossmatch See Detail 05/19/21 05/19/21 05/19/21 05:31 05:32 07:50 Hgb 7.8 L MCV 105.9 H MCH 35.3 H MCHC 33.3 RDW 21.0 H Plt Count 94 L MPV 10.4 Immature Gran % (Auto) 0.6 H Neut % (Auto) 80.2 H Lymph % (Auto) 10.9 L [place] % (Auto) 6.0 Eos % (Auto) 2.3 Baso % (Auto) 0.0 Lymph # (Auto) 0.6 L [place] # (Auto) 0.3 Eos # (Auto) 0.1 Baso # (Auto) 0.0 Abs Immat Gran (auto) 0.03 Absolute Neuts (auto) 4.1 Absolute Nucleated RBC 0.000 Nucleated RBC % (auto) 0.0 Smear Tech's Comments VERIFIED PT INR Anion Gap 14 Estim Creat Clear Calc 26.9 Estimated GFR 31 POC Glucose 93 Random Glucose 87 Calcium 7.4 L Total Bilirubin AST ALT Alkaline Phosphatase Total Protein Albumin Stool Occult Blood Blood Type Antibody Screen Crossmatch Assessment and Plan (1) Severe anemia: Status: Acute (2) Elevated liver enzymes: Status: Acute Assessment and Plan: 81-year-old male with extensive past medical history including AFib not on anticoagulation, history of AAA, CKD, CHF, CAD, CVA, prostate cancer status post prostatectomy, HTN, type 2 diabetes who presents to the hospital from shelter after labs show low hemoglobin.?... Recently [place] [facility] [place] for same? He was evaluated by GI; most likely multifactorial including , CKD, hematological disease, as well as radiation proctitis. Presents to ER with hemoglobin of 7.2 which is down from 9 on discharge 1. Acute on chronic anemia Multifactorial related to CKD radiation proctitis and bone marrow disease. Received 2 units of packed red cells overnight with stable HCT. Will observe for the next 24 hours and follow hemoglobin in a.m. transfusing for hemoglobin greater than 7. If hemoglobin greater than 7 in a.m. and medically stable likely discharge back to SNF to follow up with GI as outpatient 2. Transaminitis Liver biopsy from recent admissions demonstrates pathology consistent with amiodarone toxicity. Bilirubin is at baseline; will continue to trend. Conservative therapies at this point Patient remains asymptomatic... 3. Diabetes type 2 requiring insulin Pharmacy to convert tripped see but to Lantus and continue dosing at that conversion. Will add sliding scale coverage while in-house. Full code/misael farley [facility] Stroke Does the patient have a stroke diagnosis?: No VTE Prior VTE?: No VTE Risk Level:: Medical - moderate - high VTE Device Contraindication: Treatment Not Indicated VTE Drug Contraindication: N/A - Med Ordered
[2021-05-19 11:45] LABS: Glucose, Whole Blood 90 mg/dL (60-115)
[2021-05-19 16:45] LABS: Glucose, Whole Blood 111 mg/dL (60-115)
[2021-05-19] MEDS: Loratadine 10 MG TABLET PO (20:05)
[2021-05-19 20:52] LABS: Glucose, Whole Blood 119 mg/dL (60-115)
[2021-05-20] VITALS (7 sets, daily range): BP systolic 92–108; BP diastolic 42–54; PULSE 62–90; RESP 18–20; TEMP 36–36.6; O2SAT 95–98
[2021-05-20] MEDS: traZODone HCL 25 MG HALFTAB PO (05:54)
[2021-05-20] MEDS: Pantoprazole Sodium 40 MG/10 ML VIAL IVPUSH ×2 (06:20→15:46)
[2021-05-20 06:21] LABS: MANUAL DIFF FLAG NO
[2021-05-20 06:27] LABS: Eosinophils Absolute Auto 0.1 X10*3/uL (0.0-0.4); Eosinophils Percent Auto 1.3 % (0-4); Hematocrit 23.9 % (42.0-52.0); Imm Gran Abs Auto 0.05 X10*3/uL (0.00-0.03); Imm Gran Pct Auto 0.7 % (0.0-0.4); Lymphocytes Absolute Auto 0.7 X10*3/uL (1.2-4.9); Lymphocytes Percent Auto 10.3 % (20-40); Mean Corpuscular HGB Conc 33.5 g/dl (31.0-36.0); Mean Corpuscular Hemoglobin 35.7 pg (27.0-33.0); Mean Corpuscular Volume 106.7 fL (80.0-98.0); Mean Platelet Volume 9.9 fL (9.4-12.4); Monocytes Absolute Auto 0.6 X10*3/uL (0.1-1.2); Monocytes Percent Auto 8.3 % (2-11); Neutrophils Absolute Auto 5.6 x10*3/uL (2.0-8.3); Neutrophils Percent Auto 79.4 % (45-73); Platelet Count 103 X10*3/uL (160-400); Red Blood Count 2.24 X10*6/uL (4.60-5.80); Red Cell Distribution Width 19.9 % (11.0-16.0)
--- NOTE | 2021-05-20 06:50 | P.CNGI_ITS ---
History of Present Illness Data of Consult Service Date: 05/20/21 Requesting physician: Samuel Jarrell Primary Care Provider: [facility] Reason for consult: anemia 81-year-old man, w/ a-fib, DM, HTN, HLP, prostate ca, CVA, CKD, PVD, kidney stones and amiodarone induced liver injury and hepatitis who I am seeing for assessment for recurrent anemia. Patient had HGB checked at [facility] and was 7.2 g/dl so sent to ED> Patient denied any overt GI bleeding, no melena, rectal bleeding hematuria or gum bleeding. Also denied chest pain, some dizziness but no headache, no blurry vision, no shortness of breath, no abdominal pain nausea or vomiting, no diarrhea or constipation He has had bleeding from radiation proctitis which required steroid enemas and hemospray application 03/2021. 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 HE was given course of steroids to see if that would help his amiodarone induced liver injury but his LFT remain elevated but no worse than before. Nurse shared a picture of stool from the patient today and noted to be dark brown with out melena or fresh blood. Labs are significant for 7.2 the dropped from 9.1 on 05/08, PT of 14.6, INR of 1.3, BUN of 35, creatinine of 2.28 which is around his baseline, elevated LFTs around his baseline, Review of Systems Review of Systems: Denies chest pain Denies shortness of breath Denies nausea vomiting diarrhea Yes all other systems are reviewed and are negative [facility] Past Medical History Medical History AAA (abdominal aortic aneurysm) Abdominal aortic aneurysm Atrial fibrillation Chronic kidney disease (CKD) stage G4/A1, severely decreased glomerular filtration rate (GFR) between 15-29 mL/min/1.73 square meter and albuminuria creatinine ratio less than 30 mg/g Congestive heart failure Coronary artery disease History of CVA (cerebrovascular accident) History of prostate cancer Hypercholesterolemia Hypertension Insomnia Legally blind in right eye, as defined in [place] Obesity (BMI 30-39.9) Peripheral vascular disease Renal artery stenosis Retinal detachment Sick sinus syndrome Type 2 diabetes mellitus with hyperglycemia Venous bleed Family History Family History Father Heart problem Diabetes Prostate cancer Mother Acute leukemia Pertinent family history: Diabetes, heart problem Surgical History Surgical History H/O colonoscopy H/O esophagogastroduodenoscopy History of cataract surgery History of pacemaker History of prostatectomy History of thumb surgery History of tonsillectomy Hx of cystoscopy Renal calculi Social History Social History Household Members: Other Household Members Other:: SNF Housing: [facility] Do you presently have visiting nurse or other home services: Yes (fromSNF) Alcohol intake: never Patient Tobacco Use Status: Former Tobacco user Quit Date: 2004 Smoked: Cannot remember e-Cigarette/Vaping Use: Never Used Second Hand Smoke Exposure: No Advance Directives Date on File: 10/06/20 service: Yes (UNSURE ABOUT CONNECTION) Current occupational status: retired [employer] Allergies Allergy/AdvReac Type Severity Reaction Status Date / Time No Known Allergies Allergy Verified 03/17/21 17:45 [No Known Allergies*] Active Medications: Current Medications Acetaminophen (Acetaminophen 325 Mg Tablet) 650 mg PO Q6H PRN PRN Reason: Pain, Mild (Pain Scale 1-3) Dextrose (Dextrose 50 % 25 Gm/50 Ml Vial) 25 gm IVPUSH Q15M PRN; Protocol PRN Reason: per Hypoglycemia Standing Ord. Docusate Sodium (Docusate Sodium 100 Mg Capsule) 100 mg PO DAILY [facility] Last Admin: 05/19/21 09:22 Dose: 100 mg Documented by: Glucose (Glucose Gel 15 Gm Gel..Gram.) 15 gm PO Q15M PRN; Protocol PRN Reason: per Hypoglycemia Standing Ord. Insulin Glargine (Insulin Glargine,Hum.Rec.Anlog 100 Unit/Ml 10 Ml Vial) 21 unit SUBCUT DAILY@1700 [facility] Last Admin: 05/19/21 16:46 Dose: Not Given Documented by: Insulin Human Lispro (Insulin Lispro 100 Unit/Ml 3 Ml Vial) 0 unit SUBCUT QIDACHS [facility]; Protocol Last Admin: 05/19/21 20:09 Dose: Not Given Documented by: Loratadine (Loratadine 10 Mg Tablet) 10 mg PO BEDTIME [facility] Last Admin: 05/19/21 20:05 Dose: 10 mg Documented by: Metoprolol Tartrate (Metoprolol Tartrate 12.5 Mg Halftab) 12.5 mg PO BID [facility]; Protocol Last Admin: 05/19/21 20:05 Dose: 12.5 mg Documented by: Ondansetron HCl (Ondansetron Hcl 4 Mg/2 Ml Vial) 4 mg IVPUSH Q8H PRN PRN Reason: Nausea and Vomiting Pantoprazole Sodium (Pantoprazole Sodium 40 Mg/10 Ml Vial) 40 mg IVPUSH BID@0630,1630 [facility] Last Admin: 05/20/21 06:20 Dose: 40 mg Documented by: Polyethylene Glycol (Polyethylene Glycol 3350 17 Gm Powd.Pack) 17 gm PO DAILY [facility] Last Admin: 05/19/21 09:22 Dose: 17 gm Documented by: Sodium Chloride (0.9 % Sodium Chloride Flush 3 Ml Syringe) 3 ml IVFLUSH QSHIFT [facility] Last Admin: 05/19/21 20:06 Dose: 3 ml Documented by: Torsemide (Torsemide 20 Mg Tablet) 20 mg PO BID [facility]; Protocol Last Admin: 05/19/21 20:05 Dose: 20 mg Documented by: Vitamin D (Cholecalciferol (Vitamin D3) 25 Mcg Tablet) 25 mcg PO DAILY [facility] Last Admin: 05/19/21 09:22 Dose: 25 mcg Documented by: Home Medications Medication Instructions Recorded Confirmed Last Taken Type omega 6-yfj-xpo-fish oil 1,200 mg 1 cap PO DAILY cap 05/29/20 05/18/21 03/17/21 History (144 mg-216 mg) capsule (Fish Oil) torsemide 20 mg tablet 20 mg PO BID 10/03/20 05/18/21 03/17/21 History polyethylene glycol 3350 17 17 g PO DAILY 12/12/20 05/18/21 03/17/21 History gram/dose oral powder (Miralax) insulin degludec 100 unit/mL (3 30 unit SUBCUT DAILY@1700 01/08/21 05/18/21 03/17/21 History mL) subcutaneous pen (Tresiba FlexTouch U-100 insulin) acetaminophen 325 mg tablet 650 mg PO Q4H PRN 03/26/21 05/18/21 Unknown History cetirizine 5 mg tablet 5 mg PO BEDTIME 03/26/21 05/18/21 Unknown History cholecalciferol (vitamin D3) 25 25 mcg PO DAILY 03/26/21 05/18/21 Unknown History mcg (1,000 unit) tablet docusate sodium 100 mg capsule 100 mg PO DAILY 04/28/21 05/18/21 Unknown History (Colace) hydrocortisone 2.5 % topical cream 1 appl AR BID 04/28/21 05/19/21 Unknown History with perineal applicator (Procto-Med HC) omeprazole 20 mg capsule,delayed 40 mg PO DAILY 04/28/21 05/18/21 Unknown History release zinc sulfate 220 mg capsule 220 mg PO DAILY 04/28/21 05/19/21 Unknown History Physical Exam Vital Signs: Vital Signs: Last Vital Signs Temp 97.4 F 05/20/21 04:00 Pulse 74 05/20/21 04:00 Resp 18 05/20/21 04:00 BP 108/51 L 05/20/21 04:00 Pulse Ox 98 05/20/21 04:00 Body Mass Index 26.7 Const: Other: Awake alert oriented x3 no acute distress General: cooperative and no acute distress Orientation/consciousness: patient oriented x3 HENMT: Other: Membranes moist Eyes: General: appearance normal, both eyes and all related structures Resp: Other: Clear to auscultation bilaterally. No rales rhonchi or wheezes Effort & Inspection: normal respiratory effort Auscultation: clear to auscultation bilaterally and crackles (both bases) Cardio: Other: No S4; positive S1-S2; no S3 murmurs rubs gallops Rate: regular rate Rhythm: regular rhythm GI: Other: Soft nontender nondistended with normoactive bowel sounds. Palpation (GI): Soft to palpation Skin: Other: Jaundiced Neuro: General: patient oriented x3 Cognition (Neuro): normal cognition Extrem: Other: No edema bilaterally General: Yes normal to inspection Results Labs CBC & Chem 7: 05/20/21 06:10 05/20/21 06:10 Labs: Short CBC 05/20/21 Range/Units 06:10 WBC 7.0 (4.8-10.8) X10*3/uL Hgb 8.0 L (14.0-18.0) g/dl Hct 23.9 L (42.0-52.0) % Plt Count 103 L (160-400) X10*3/uL Assessment and Plan (1) Transaminitis: Status: Acute (2) Severe anemia: Status: Acute 1/ Recurrent Anemia, without overt GI blood losses, multifactorial from liver injury, splenomegaly, CKD and low plts, possible malnutrition as well, or occult GI losses from GAVE, radiation proctitis, skin bruising and mucosal losses 2/ AMiodarone liver injury, 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 May progress or gradually improve with time but could take months to determine. PLAN: 1/ Given absence of overt GI bleeding, would manage conservatively with prn PRBC, iron transfusions 2/ Multivitamins, add vit C supplement 1 g daily, zinc 220 mg daily 3/ If overt GI bleeding can consider rept endoscopy 4/ woudl giv trial of trental to see if helps liver--has anti oxidant effects Procedures Date of Service Date of Service: 05/20/21
[2021-05-20 06:53] LABS: Alanine Aminotransferase 44 U/L (0-40); Albumin Level 2.5 g/dL (3.5-5.0); Alkaline Phosphatase 114 U/L (39-117); Anion Gap 20 (12-20); Aspartate Amino Transferase 50 U/L (5-37); Bilirubin Total 10.1 mg/dL (0.0-1.0); Blood Urea Nitrogen 31 mg/dL (9-16); Calcium 7.5 mg/dL (8.4-10.2); Carbon Dioxide 21 mmol/L (22-29); Chloride 103 mmol/L (96-108); Creatinine Clr Calc Pharmacy 25.1; Estimated Glomerular Filt Rate 29; Glucose Fasting 114 mg/dL (60-99); Potassium 3.2 mmol/L (3.3-5.1); Sodium 141 mmol/L (135-145); Total Protein 5.8 g/dL (6.5-8.0)
[2021-05-20 07:18] LABS: Glucose, Whole Blood 121 mg/dL (60-115)
[2021-05-20] MEDS: Potassium Chloride Packet 20 MEQ PACKET 40 MEQ PO (10:35)
[2021-05-20] MEDS: 0.9 % Sodium Chloride Flush 3 ML SYRINGE IVFLUSH ×3 (10:36→22:03)
[2021-05-20] MEDS: Torsemide 20 MG TABLET PO (10:36)
[2021-05-20] MEDS: Cholecalciferol (Vitamin D3) 25 MCG TABLET PO (10:36)
[2021-05-20] MEDS: Metoprolol Tartrate 12.5 MG HALFTAB PO (10:36)
[2021-05-20 11:29] LABS: Glucose, Whole Blood 154 mg/dL (60-115)
--- NOTE | 2021-05-20 15:33 | HO.PM.IMPN ---
Subjective Subjective Date of Service: 05/20/21 Interval History: Will given trazodone at 05:00 this morning; ?rough day? per patient. No active bleeding normal bowel movement Review of Systems Denies chest pain Denies shortness of breath Denies nausea vomiting diarrhea Physical Exam Vital Signs: Vital Signs: Last Vital Signs Temp 97.8 F 05/20/21 15: Pulse 76 05/20/21 15:21 Resp 18 05/20/21 15:21 BP 100/52 L 05/20/21 15: Pulse Ox 95 05/20/21 15:21 Body Mass Index 26.7 Const: Other: Awake alert oriented x3 no acute distress HENMT: Other: Membranes moist Resp: Other: Clear to auscultation bilaterally. No rales rhonchi or wheezes Cardio: Other: No S4; positive S1-S2; no S3 murmurs rubs gallops GI: Other: Soft nontender nondistended with normoactive bowel sounds. Extrem: Other: No edema bilaterally Objective Data Active Medications Acetaminophen (Acetaminophen 325 Mg Tablet) 650 mg PO Q6H PRN PRN Reason: Pain, Mild (Pain Scale 1-3) Ascorbic Acid (Ascorbic Acid 500 Mg Tablet) 1,000 mg PO DAILY [facility] Dextrose (Dextrose 50 % 25 Gm/50 Ml Vial) 25 gm IVPUSH Q15M PRN; Protocol PRN Reason: per Hypoglycemia Standing Ord. Docusate Sodium (Docusate Sodium 100 Mg Capsule) 100 mg PO DAILY [facility] Last Admin: 05/20/21 10:31 Dose: Not Given Documented by: KYLE Non-Admin Reason: patient had loose stool Glucose (Glucose Gel 15 Gm Gel..Gram.) 15 gm PO Q15M PRN; Protocol PRN Reason: per Hypoglycemia Standing Ord. Insulin Glargine (Insulin Glargine,Hum.Rec.Anlog 100 Unit/Ml 10 Ml Vial) 21 unit SUBCUT DAILY@1700 [facility] Last Admin: 05/19/21 16:46 Dose: Not Given Documented by: KYLE Non-Admin Reason: low blood sugar Insulin Human Lispro (Insulin Lispro 100 Unit/Ml 3 Ml Vial) 0 unit SUBCUT QIDACHS [facility]; Protocol Last Admin: 05/20/21 11:31 Dose: Not Given Documented by: COTNOE Non-Admin Reason: patient not going to eat Loratadine (Loratadine 10 Mg Tablet) 10 mg PO BEDTIME [facility] Last Admin: 05/19/21 20:05 Dose: 10 mg Documented by: TRENTON Metoprolol Tartrate (Metoprolol Tartrate 12.5 Mg Halftab) 12.5 mg PO BID [facility]; Protocol Last Admin: 05/20/21 10:36 Dose: 12.5 mg Documented by: KYLE Ondansetron HCl (Ondansetron Hcl 4 Mg/2 Ml Vial) 4 mg IVPUSH Q8H PRN PRN Reason: Nausea and Vomiting Pantoprazole Sodium (Pantoprazole Sodium 40 Mg/10 Ml Vial) 40 mg IVPUSH BID@0630,1630 [facility] Last Admin: 05/20/21 06:20 Dose: 40 mg Documented by: TRENTON Pentoxifylline (Pentoxifylline Er 400 Mg Tablet.Er) 400 mg PO TID [facility] Polyethylene Glycol (Polyethylene Glycol 3350 17 Gm Powd.Pack) 17 gm PO DAILY [facility] Last Admin: 05/20/21 10:31 Dose: Not Given Documented by: KYLE Non-Admin Reason: patient had loose stool Sodium Chloride (0.9 % Sodium Chloride Flush 3 Ml Syringe) 3 ml IVFLUSH QSHIFT [facility] Last Admin: 05/20/21 10:36 Dose: 3 ml Documented by: KYLE Torsemide (Torsemide 20 Mg Tablet) 20 mg PO BID [facility]; Protocol Last Admin: 05/20/21 10:36 Dose: 20 mg Documented by: KYLE Vitamin D (Cholecalciferol (Vitamin D3) 25 Mcg Tablet) 25 mcg PO DAILY [facility] Last Admin: 05/20/21 10:36 Dose: 25 mcg Documented by: KYLE Zinc Sulfate (Zinc Sulfate 220 Mg Capsule) 220 mg PO DAILY [facility] Labs CBC & Chem 7: 05/20/21 06:10 05/20/21 06:10 Labs: Laboratory Results - last 24 hr 05/19/21 05/19/21 05/20/21 15:46 20:04 06:10 MCV 106.7 H MCH 35.7 H MCHC 33.5 RDW 19.9 H Plt Count 103 L MPV 9.9 Immature Gran % (Auto) 0.7 H Neut % (Auto) 79.4 H Lymph % (Auto) 10.3 L [place] % (Auto) 8.3 Eos % (Auto) 1.3 Baso % (Auto) 0.0 Lymph # (Auto) 0.7 L [place] # (Auto) 0.6 Eos # (Auto) 0.1 Baso # (Auto) 0.0 Abs Immat Gran (auto) 0.05 H Absolute Neuts (auto) 5.6 Absolute Nucleated RBC 0.000 Nucleated RBC % (auto) 0.0 Anion Gap Estim Creat Clear Calc Estimated GFR POC Glucose 111 119 H Fasting Glucose Calcium Total Bilirubin AST ALT Alkaline Phosphatase Total Protein Albumin 05/20/21 05/20/21 05/20/21 06:10 07:08 11:08 MCV MCH MCHC RDW Plt Count MPV Immature Gran % (Auto) Neut % (Auto) Lymph % (Auto) [place] % (Auto) Eos % (Auto) Baso % (Auto) Lymph # (Auto) [place] # (Auto) Eos # (Auto) Baso # (Auto) Abs Immat Gran (auto) Absolute Neuts (auto) Absolute Nucleated RBC Nucleated RBC % (auto) Anion Gap 20 Estim Creat Clear Calc 25.1 Estimated GFR 29 POC Glucose 121 H 154 H Fasting Glucose 114 H Calcium 7.5 L Total Bilirubin 10.1 H AST 50 H ALT 44 H Alkaline Phosphatase 114 Total Protein 5.8 L Albumin 2.5 L Assessment and Plan (1) Severe anemia: Status: Acute Assessment and Plan: 81-year-old male with extensive past medical history including AFib not on anticoagulation, history of AAA, CKD, CHF, CAD, CVA, prostate cancer status post prostatectomy, HTN, type 2 diabetes who [facility] after labs show low hemoglobin.?... [place] [facility] [place] for same? He was evaluated by GI; most likely multifactorial including , CKD, hematological disease, as well as radiation proctitis. Presents to ER with hemoglobin of 7.2 which is down from 9 on discharge 1. Acute on chronic anemia Multifactorial related to CKD radiation proctitis and bone marrow disease. Received 2 units of packed red cells overnight with stable HCT. Hemoglobin has remained stable without signs of active bleeding. Normal BM today. Mental status altered today secondary to trazodone Recheck hemoglobin in a.m..... Conservative therapies per GI. Steroid enemas, iron, vitamin-C, transfusions p.r.n. no endoscopy and less active bleeding 2. Transaminitis Liver biopsy from recent admissions demonstrates pathology consistent with amiodarone toxicity. Bilirubin is at baseline; will continue to trend. Conservative therapies at this point Trental added by GI 3. Diabetes type 2 requiring insulin Pharmacy to convert tripped see but to Lantus and continue dosing at that conversion. Will add sliding scale coverage while in-house. Full code/vena [facility] Quality Stroke Does the patient have a stroke diagnosis?: No VTE Prior VTE?: No VTE Risk Level:: Medical - moderate - high VTE Device Contraindication: Treatment Not Indicated VTE Drug Contraindication: N/A - Med Ordered
[2021-05-20] MEDS: Pentoxifylline ER 400 MG TABLET.ER PO (15:46)
[2021-05-20 16:37] LABS: Glucose, Whole Blood 144 mg/dL (60-115)
[2021-05-20] MEDS: hydrOXYzine HCL 25 MG TABLET PO (17:14)
[2021-05-20 19:53] LABS: Glucose, Whole Blood 152 mg/dL (60-115)
[2021-05-20] MEDS: ondansetron HCL 4 MG/2 ML VIAL IVPUSH (22:00)
[2021-05-21] VITALS (9 sets, daily range): BP systolic 86–96; BP diastolic 35–54; PULSE 87–91; RESP 18–22; TEMP 35–36.4; O2SAT 94–96
--- NOTE | 2021-05-21 | ECG_ITS ---
Test Reason : stat ekg Blood Pressure : / mmHG Vent. Rate : 081 BPM Atrial Rate : 081 BPM P-R Int : 262 ms QRS Dur : 102 ms QT Int : 418 ms P-R-T Axes : 108 035 164 degrees QTc Int : 485 ms Sinus rhythm with 1st degree A-V block Marked ST abnormality, possible lateral subendocardial injury Prolonged QT RSR' or QR pattern in V1 suggests right ventricular conduction delay Abnormal ECG ST more depressed Anterolateral leads Referred By: Rudi James Electronically Signed By:EMERY CEVALLOS MD
[2021-05-21 00:56] LABS: MANUAL DIFF FLAG SCAN; PLT CLUMP 1; Red Cell Distribution Width 19.7 % (11.0-16.0); SCAN SMEAR FLAG 1
[2021-05-21 00:58] LABS: Eosinophils Percent Auto 0.2 % (0-4); Hemoglobin 7.9 g/dl (14.0-18.0); Imm Gran Abs Auto 0.06 X10*3/uL (0.00-0.03); Imm Gran Pct Auto 0.5 % (0.0-0.4); Lymphocytes Absolute Auto 0.4 X10*3/uL (1.2-4.9); Mean Corpuscular HGB Conc 32.9 g/dl (31.0-36.0); Mean Corpuscular Hemoglobin 36.4 pg (27.0-33.0); Mean Corpuscular Volume 110.6 fL (80.0-98.0); Mean Platelet Volume 10.9 fL (9.4-12.4); Monocytes Absolute Auto 0.7 X10*3/uL (0.1-1.2); Monocytes Percent Auto 6.1 % (2-11); Neutrophils Absolute Auto 10.8 x10*3/uL (2.0-8.3); Neutrophils Percent Auto 90.2 % (45-73); Red Blood Count 2.17 X10*6/uL (4.60-5.80); White Blood Count 11.9 X10*3/uL (4.8-10.8)
[2021-05-21 01:17] LABS: Lactic Acid 12.3 mmol/L (0.5-2.0)
[2021-05-21 01:18] LABS: Platelet Count 119 X10*3/uL (160-400); SLIDE REVIEW VERIFIED
[2021-05-21 01:19] LABS: B Type Natriuretic Peptide 3931 pg/mL (<100)
[2021-05-21 02:53] LABS: Reflex Lactate? Lactic Acid Added
[2021-05-21] MEDS: vancomycin HCL 1,500 MG in 0.9 % Sodium Chloride 500 ML 333.33 MG IV (03:05)
[2021-05-21 03:10] LABS: VBG Base Excess -3.8 mmol/L; VBG HCO3 18 mmol/L (22-26); VBG pCO2 24 mmHg; VBG pH 7.48 (7.32-7.43); VBG pO2 37 mmHg
--- NOTE | 2021-05-21 03:10 | PC.NURSE ---
0027 pt c/o of sob,02 sats 86% on room air.02 at 3L applied sats 96%,B/P 89/48. notified.stat labs and pcxr ordered.lactic acid 12.3,bnp 3931,cxr showed pulmonary venous congestion.pt moved [facility] to [facility].
[2021-05-21 03:13] LABS: Venous Blood Gas Refer to POC result
[2021-05-21 03:16] LABS: MANUAL DIFF FLAG NO
[2021-05-21 03:17] LABS: Glucose, Whole Blood 169 mg/dL (60-115)
[2021-05-21 03:17] LABS: Eosinophils Percent Auto 0.2 % (0-4); Hematocrit 24.1 % (42.0-52.0); Imm Gran Abs Auto 0.06 X10*3/uL (0.00-0.03); Imm Gran Pct Auto 0.6 % (0.0-0.4); Lymphocytes Absolute Auto 0.4 X10*3/uL (1.2-4.9); Lymphocytes Percent Auto 3.6 % (20-40); Mean Corpuscular HGB Conc 33.2 g/dl (31.0-36.0); Mean Corpuscular Hemoglobin 36.2 pg (27.0-33.0); Monocytes Absolute Auto 0.7 X10*3/uL (0.1-1.2); Monocytes Percent Auto 6.3 % (2-11); Neutrophils Absolute Auto 9.7 x10*3/uL (2.0-8.3); Neutrophils Percent Auto 89.3 % (45-73); Platelet Count 112 X10*3/uL (160-400); Red Blood Count 2.21 X10*6/uL (4.60-5.80); Red Cell Distribution Width 19.8 % (11.0-16.0); White Blood Count 10.9 X10*3/uL (4.8-10.8)
[2021-05-21 03:31] LABS: Anion Gap 25 (12-20); Blood Urea Nitrogen 34 mg/dL (9-16); Calcium 7.8 mg/dL (8.4-10.2); Carbon Dioxide 16 mmol/L (22-29); Chloride 103 mmol/L (96-108); Creatinine Clr Calc Pharmacy 20.1; Estimated Glomerular Filt Rate 22; Glucose Random 173 mg/dL (60-115); Potassium 3.6 mmol/L (3.3-5.1); Sodium 140 mmol/L (135-145); ~Lactic Acid-LAB USE ONLY 10.8 mmol/L (0.5-2.0)
[2021-05-21 03:33] LABS: INTERNATIONAL NORM RATIO 1.5 (0.9-1.1); Prothrombin Time 17.7 SEC (9.9-13.0)
[2021-05-21 03:51] LABS: D Dimer 1810 NG/ML
--- NOTE | 2021-05-21 04:36 | PC.NURSE ---
Addendum entered by Kayla Ralph RN 05/21/21 06:56: [place] [facility] [place] given. Central line placed in L IJ. One amp bicarb and 250 ml NS bolus given per PA. 1 unit RBC running. Original Note: Pt to icu at 0230, pt alert to person and place only. Disoriented to time and situation, forgetful and anxious. Bp 88/35, vasopressin started, stopped per PA, bp now 94/42. SpO2 97% on 4L NC, LS fine crackles in bases. HR 80s afib on tele. 1+ pitting in BUE and BLE, pt appears jaundice with scattered bruising. Troponin 487. Ekg ? infarction, pt awaiting transfer to facility per TAZ Grijalva. 325 aspirin administered. Gamino placed. 10-20 ml urine output.
[2021-05-21] MEDS: Aspirin 81 MG TAB.CHEW 324 MG PO (04:50)
[2021-05-21 05:14] LABS: Reflex Lactate? 2 Y
--- NOTE | 2021-05-21 05:18 | PM.EVENT ---
Event Note Date of Service: 05/21/21 Event Note: Patient developed shortness of breath as well as hypotension around 1-2 in the morning. Chest x-ray shows pulmonary congestion, BNP elevated in the 3 thousands, patient also has leukocytosis, lactic acid of 12. Patient is satting in the 80s placed on 3 L of oxygen satting 94-95%. He appears short of breath, pale and generally unwell. patient started on Lasix IV, IV antibiotic and given 1 dose of midodrine and transferred to the ICU for further management of CHF as well as sepsis. Source unknown at this time. Spoke to the ICU PA and patient was transferred. No evidence of acute GI bleed
--- NOTE | 2021-05-21 05:28 | P.CONCC_ITS ---
History of Present Illness Data of Consult Service Date: 05/21/21 Requesting physician: Tomasz Sarmiento Primary Care Provider: [facility] HPI Reason for consult: ?SOB, acute hypotension and hypoxia Chief complaint: ?SOB, acute hypotension and hypoxia HPI: ?Patient with underlying history of atrial fibrillation not on anticoagulat ion due to acute on chronic GI bleed, history of AAA, CKD with baseline creatinine of 2.2-2.5, CHF with unknown ejection fraction, coronary disease post stenting years ago, CVA, prostate cancer status post prostatectomy, hypertension, type 2 diabetes [facility] with complaints of feeling weak and having low blood count as reported by his senior living staff.? At the time the patient has had some dizziness but was not aware of any melena or bright red blood per rectum, no other complaints were reported.? Is known that the patient has had prior transfusions in the past.? His anemia has been attributed to be multifactorial although in March of this year he was found to have active bleeding from radiation proctitis, hemorrhoids, polyps and diverticular disease.? During the initial workup he was noted to have a low hemoglobin of 7.2 from prior baseline of 9 and positive occult stool test.? He has received a unit of packed red blood cells. 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 ?Treated with Trental. Patient's blood pressure has been anywhere in the high 90s to 100 systolic, today we were called by the hospitalist as the patient developed acute shortness of breath and a feeling of unwellness, he had developed hypotension with blood pressure of 84/48, O2 sat of 80% on room air and having some difficulty breat queta, chest x-ray did reveal pulmonary congestion.? The concern was the patient also developed a mild leukocytosis and lactic acid of 12.? No of IV fluid administration had been given due to the concern of fluid overload.? They did place the patient on 3 L nasal cannula increasing his O2 sat 94-95%.? Patient overall feeling generally unwell, Lasix, antibiotics and midodrine had been order but the patient was then transferred to the ICU. Upon arrival to the ICU, the patient appeared to be satting 90% on room air lying semi flat, he appears pale and states he does not feel well but denies any chest pain, back pain, nausea, vomiting, abdominal pain, arm or jaw pain.? He does not recall having a blood clot ever, he does admit having a heart attack about 10 years ago for which he had a stent.? Currently denies any other symptoms. ROS:? Denies headache, no visual changes, lightheadedness or dizziness, no history of seizures, no history of eye or ear problems, no sore throat, cough or sputum production, denies shortness of breath, denies chest pain, palpitations, ?no hemoptysis, denies hematochezia, no dysuria, hematuria, no leg swelling, no history of DVT or PE.? She has no travel and has not been contact with anybody with? COVID.? His last COVID test was on the 08 of May of this year, no recent exposures reported. ?All other review of systems negative. Past Medical History:? As above Past Surgical History: CAD a stent about 10 years ago Family history: ?Unknown Social History:? Lives at home, history of tobacco consumption, unable to quantify, quit 10 years ago, social alcohol? CODE STATUS:? Full code Allergies: ?No known drug allergies? Home Medications:? Please see [facility] rec PHYSICAL EXAM:? Initial blood pressure 82/46, heart rate 90, respirations 16, O2 sat reported as 80% room air but this was transient. General:?Jaundiced, Alert oriented x3 no acute distress.? Speaking full sentences.? Speech is well articulated, thought process is coherent.? Following all commands. Skin: ?Bilateral leg edema 2+ up to mid tibia, multiple ecchymotic spots bilateral arms and shoulders. ?Intact, no lesions, edema, erythema, clubbing or cyanosis.? No ulcers. HEENT:? Head is normocephalic, atraumatic, pupils equal round reactive to light accommodation bilaterally.? Extraocular movements appear intact.? Buccal mucosa is moist, Neck is supple without lymphadenopathy. Cardiac:? Clear S1-S2, no murmurs rubs or gallops. Pulmonary:? Minimal crackles at the bases otherwise clear without wheezes, rales, rhonchi. Abdomen:? Protuberant, positive bowel sounds in all 4 quadrants.? Soft, nontender, no rebound or guarding.? Musculoskeletal:? Moving all 4 extremities upon request a major joints, there is no crepitus or tenderness.? The strength is 5/5 bilaterally and throughout all 4 extremities.? There is 2+ pitting edema up to mid tibia bilaterally, no calf tenderness , no leg asymmetry.? Gait not assessed at this point. Neurologic:? As above, cranial nerves 2-12 are grossly intact.? No focal deficits noted. Motor strength as above.? Vascular:? 2+ pulses upper and lower extremities distally. ?Less than 2nd capillary refill fingers and toes SIGNIFICANT LABORATORY DATA:? As above REVIEW OF IMAGES: IMPRESSION: 1. No significant change in the persistent retrocardiac opacification at the left lung base which may correspond to a combination of atelectasis, consolidation, and/or effusion. 2. Pulmonary venous congestion and borderline cardiomegaly. ? EKG REVIEW: ?EKG shows sinus rhythm versus accelerated junctional rhythm at 80 beats per minute.? There is no ST elevations, there is ST depressions throughout the septal and lateral leads.? This appears to be new in comparison to prior EKG from April of this year. ASSESSMENT AND PLAN: 1. Acute hypotension, transient hypoxia likely due to NSTEMI on patient with CAD with prior stent 2. Elevated troponin and proBNP likely due to NSTEMI but I cannot rule out pulmonary emboli 3. Acute on chronic anemia shows related to be multifactorial likely due to CKD, radiation proctitis, GAVE but without evidence of overt right bleed currently on PPI and transfusion p.r.n. 4. Transaminitis with recent liver biopsy consistent with amiodarone toxicity 5. Type 2 diabetes requiring insulin 6. Acute metabolic acidosis 7. Lactic acidosis NOS difficult to be specific due to liver disease 8. Anion gap acidosis 9. Hypoalbuminemia Initial workup was not to rule things out including sepsis, ACS, PE, electrolyte abnormalities, acute bleed among others.? Laboratories reveal an elevated troponin and proBNP, the patient does not appear to have chest pain a and does not complain shortness of breath might affect his Constantine down with an O2 sat 96% on room air.? He does acknowledge that he does not feel well. After repeating EKG and getting a more lateral and posterior view, it is eminent that he is having ischemic pattern as there is significant ST depressions throughout.? Given his GI bleed history full-dose aspirin will be given but we will await discussed with fuel cell test engineer prior to deciding upon anticoagulation.? At this point we will hold on any type of vasopressors to to further risk of basal constriction. ?He did get an amp of bicarbonate.Albumin salt 25%. I will await the discussion with fuel cell test engineer up [facility] is not accepting patients at this point. 0500 given the acuity, despite of the risks, we have decided to anticoagulate this patient, will give him a load of heparin 5000 units followed by the drip per protocol, the patient will be typed and crossed and will receive 1 unit packed red blood cells along with 250 cc of normal saline bolus x1 to help with his blood pressure given our inability to use vasopressors. 0515 I was able to discussed the case with Dr. Hathaway fuel cell test engineer at [facility] who accept that the patient for transfer to the CCU, at this point he does not recommend anticoagulation due to risk of bleeding, they will likely start these upon arrival to their facility.? He is aware that the patient received aspirin. GI PROPHYLAXIS:? On PPI DVT PROPHYLAXIS:? Pneumatic stockings only ? Critical care time used for critical evaluation of this patient, diagnosis, treatment and coordination of care, review her records and documentation TOTAL CRITICAL CARE TIME 120 MIN . Patient's care was discussed in detail with Dr. Hendricks? He is aware of all the above as well as the plan of care for this patient. [facility] Past Medical History Medical History AAA (abdominal aortic aneurysm) Abdominal aortic aneurysm Atrial fibrillation Chronic kidney disease (CKD) stage G4/A1, severely decreased glomerular filtration rate (GFR) between 15-29 mL/min/1.73 square meter and albuminuria creatinine ratio less than 30 mg/g Congestive heart failure Coronary artery disease History of CVA (cerebrovascular accident) History of prostate cancer Hypercholesterolemia Hypertension Insomnia Legally blind in right eye, as defined in [place] Obesity (BMI 30-39.9) Peripheral vascular disease Renal artery stenosis Retinal detachment Sick sinus syndrome Type 2 diabetes mellitus with hyperglycemia Venous bleed Family History Family History Father Heart problem Diabetes Prostate cancer Mother Acute leukemia Surgical History Surgical History H/O colonoscopy H/O esophagogastroduodenoscopy History of cataract surgery History of pacemaker History of prostatectomy History of thumb surgery History of tonsillectomy Hx of cystoscopy Renal calculi Social History Social History Household Members: Other Household Members Other:: SNF Housing: Intermediate Do you presently have visiting nurse or other home services: Yes (fromSNF) Alcohol intake: never Patient Tobacco Use Status: Former Tobacco user Quit Date: 2004 Smoked: Cannot remember e-Cigarette/Vaping Use: Never Used Second Hand Smoke Exposure: No Advance Directives Date on File: 10/06/20 service: Yes (UNSURE ABOUT CONNECTION) Current occupational status: retired [employer] Allergies Allergy/AdvReac Type Severity Reaction Status Date / Time No Known Allergies Allergy Verified 03/17/21 17:45 [No Known Allergies*] Active Medications: Current Medications Acetaminophen (Acetaminophen 325 Mg Tablet) 650 mg PO Q6H PRN PRN Reason: Pain, Mild (Pain Scale 1-3) Ascorbic Acid (Ascorbic Acid 500 Mg Tablet) 1,000 mg PO DAILY JEANETTE Dextrose (Dextrose 50 % 25 Gm/50 Ml Vial) 25 gm IVPUSH Q15M PRN; Protocol PRN Reason: per Hypoglycemia Standing Ord. Docusate Sodium (Docusate Sodium 100 Mg Capsule) 100 mg PO DAILY [facility] Last Admin: 05/20/21 10:31 Dose: Not Given Documented by: Furosemide (Furosemide 40 Mg/4 Ml Vial) 40 mg IVPUSH Q12H JEANETTE; Protocol Last Admin: 05/21/21 04:36 Dose: Not Given Documented by: Glucose (Glucose Gel 15 Gm Gel..Gram.) 15 gm PO Q15M PRN; Protocol PRN Reason: per Hypoglycemia Standing Ord. Hydroxyzine HCl (Hydroxyzine Hcl 25 Mg Tablet) 25 mg PO Q6H PRN PRN Reason: Anxiety Last Admin: 05/20/21 17:14 Dose: 25 mg Documented by: Vancomycin HCl 1,500 mg/ (Sodium Chloride) 500 mls @ 333.333 mls/hr IV Q12H JEANETTE Vasopressin 20 unit/ Sodium (Chloride) 101 mls @ 12.12 mls/hr IVCONT .Q8H20M JEANETTE Last Infusion: 05/21/21 04:11 Dose: 0 unit/min, 0 mls/hr Documented by: Piperacillin Sod/Tazobactam (Sod 2.25 gm/ Sodium Chloride) 50 mls @ 100 mls/hr IV Q8H [facility] Sodium Chloride (Ns) 500 mls @ 250 mls/hr IVCONT .Q2H ONE Stop: 05/21/21 07:08 Insulin Glargine (Insulin Glargine,Hum.Rec.Anlog 100 Unit/Ml 10 Ml Vial) 21 unit SUBCUT DAILY@1700 [facility] Last Admin: 05/20/21 16:43 Dose: Not Given Documented by: Insulin Human Lispro (Insulin Lispro 100 Unit/Ml 3 Ml Vial) 0 unit SUBCUT QIDACHS [facility]; Protocol Last Admin: 05/20/21 22:04 Dose: Not Given Documented by: Loratadine (Loratadine 10 Mg Tablet) 10 mg PO BEDTIME [facility] Last Admin: 05/20/21 22:05 Dose: Not Given Documented by: Ondansetron HCl (Ondansetron Hcl 4 Mg/2 Ml Vial) 4 mg IVPUSH Q8H PRN PRN Reason: Nausea and Vomiting Last Admin: 05/20/21 22:00 Dose: 4 mg Documented by: Pantoprazole Sodium (Pantoprazole Sodium 40 Mg/10 Ml Vial) 40 mg IVPUSH BID@06 30,1630 [facility] Last Admin: 05/20/21 15:46 Dose: 40 mg Documented by: Pentoxifylline (Pentoxifylline Er 400 Mg Tablet.Er) 400 mg PO TID [facility] Last Admin: 05/20/21 22:03 Dose: Not Given Documented by: Pharmacy Consult (Consult Rx Vancomycin Dosing) 1 each MISCELLANE DAILY PRN PRN Reason: Consult order Polyethylene Glycol (Polyethylene Glycol 3350 17 Gm Powd.Pack) 17 gm PO DAILY [facility] Last Admin: 05/20/21 10:31 Dose: Not Given Documented by: Sodium Chloride (0.9 % Sodium Chloride Flush 3 Ml Syringe) 3 ml IVFLUSH QSHIFT [facility] Last Admin: 05/20/21 22:03 Dose: 3 ml Documented by: Vitamin D (Cholecalciferol (Vitamin D3) 25 Mcg Tablet) 25 mcg PO DAILY [facility] Last Admin: 05/20/21 10:36 Dose: 25 mcg Documented by: Zinc Sulfate (Zinc Sulfate 220 Mg Capsule) 220 mg PO DAILY [facility] Home Medications Medication Instructions Recorded Confirmed Last Taken Type omega 5-ezp-bza-fish oil 1,200 mg 1 cap PO DAILY cap 05/29/20 05/18/21 03/17/21 History (144 mg-216 mg) capsule (Fish Oil) torsemide 20 mg tablet 20 mg PO BID 10/03/20 05/18/21 03/17/21 History polyethylene glycol 3350 17 17 g PO DAILY 12/12/20 05/18/21 03/17/21 History gram/dose oral powder (Miralax) insulin degludec 100 unit/mL (3 30 unit SUBCUT DAILY@1700 01/08/21 05/18/21 03/17/21 History mL) subcutaneous pen (Tresiba FlexTouch U-100 insulin) acetaminophen 325 mg tablet 650 mg PO Q4H PRN 03/26/21 05/18/21 Unknown History cetirizine 5 mg tablet 5 mg PO BEDTIME 03/26/21 05/18/21 Unknown History cholecalciferol (vitamin D3) 25 25 mcg PO DAILY 03/26/21 05/18/21 Unknown History mcg (1,000 unit) tablet docusate sodium 100 mg capsule 100 mg PO DAILY 04/28/21 05/18/21 Unknown History (Colace) hydrocortisone 2.5 % topical cream 1 appl NC BID 04/28/21 05/19/21 Unknown History with perineal applicator (Procto-Med HC) omeprazole 20 mg capsule,delayed 40 mg PO DAILY 04/28/21 05/18/21 Unknown History release zinc sulfate 220 mg capsule 220 mg PO DAILY 04/28/21 05/19/21 Unknown History Physical Exam Vital Signs: Vital Signs: Last Vital Signs Temp 96.4 F L 05/21/21 05:00 Pulse 89 05/21/21 05:00 Resp 19 05/21/21 05:00 BP 86/54 L 05/21/21 05:00 Pulse Ox 94 05/21/21 05:00 Body Mass Index 26.7 Results Labs CBC & Chem 7: 05/21/21 03:04 05/21/21 03:04 Labs: Short CBC 05/20/21 05/21/21 05/21/21 Range/Units 06:10 00:49 03:04 WBC 7.0 11.9 H 10.9 H (4.8-10.8) X10*3/uL Hgb 8.0 L 7.9 L 8.0 L (14.0-18.0) g/dl Hct 23.9 L 24.0 L 24.1 L (42.0-52.0) % Plt Count 103 L 119 L 112 L (160-400) X10*3/uL BMP 05/20/21 05/21/21 06:10 03:04 Sodium 141 140 Potassium 3.2 L 3.6 Chloride 103 103 Carbon Dioxide 21 L 16 L BUN 31 H 34 H Creatinine 2.23 H 2.78 H Calcium 7.5 L 7.8 L Liver Function 05/20/21 Range/Units 06:10 Total Bilirubin 10.1 H (0.0-1.0) mg/dL AST 50 H (5-37) U/L ALT 44 H (0-40) U/L Alkaline Phosphatase 114 (39-117) U/L Albumin 2.5 L (3.5-5.0) g/dL
--- NOTE | 2021-05-21 05:34 | PM.DS ---
DS: Providers Provider Date of Service: 05/21/21 Date of admission: 05/18/21 21:03 Primary care physician: [facility] Consults: 05/18/21 22:22 Consult to Gastroenterology Routine Consulting Provider: Xuan Sandhu Reason for consultation: melena, acute on chronic anemia Has provider been notified: No DS: Diagnosis Discharge Diagnosis (1) Severe anemia: Status: Acute DS: Summary Hospital Course Hospital Course: ? Disposition: ?Transferred to [facility] CCU, accepted by Condition: ?Fair but stable currently asymptomatic ADMISSION/DISCHARGE DIAGNOSIS 1. Acute hypotension, transient hypoxia likely due to NSTEMI on patient with CAD with prior stent 2. Elevated troponin and proBNP likely due to NSTEMI but I cannot rule out pulmonary emboli 3. Acute on chronic anemia shows related to be multifactorial likely due to CKD, radiation proctitis, GAVE but without evidence of overt right bleed currently on PPI and transfusion p.r.n. 4. Transaminitis with recent liver biopsy consistent with amiodarone toxicity 5. Type 2 diabetes requiring insulin 6. Acute metabolic acidosis 7. Lactic acidosis NOS difficult to be specific due to liver disease 8. Anion gap acidosis 9. Hypoalbuminemia HPI AND HOSPITAL COURSE: Patient with underlying history of atrial fibrillation not on anticoagulation due to acute on chronic GI bleed, history of AAA, CKD with baseline creatinine of 2.2-2.5, CHF with unknown ejection fraction, coronary disease post stenting years ago, CVA, prostate cancer status post prostatectomy, hypertension, type 2 diabetes was admitted to [facility] hospital on May 18, 2021 with complaints of feeling weak and having low blood count as reported by his correction staff.? At the time the patient has had some dizziness but was not aware of any melena or bright red blood per rectum, no other complaints were reported.? Is known that the patient has had prior transfusions in the past.? His anemia has been attributed to be multifactorial although in March of this year he was found to have active bleeding from radiation proctitis, hemorrhoids, polyps and diverticular disease.? During the initial workup he was noted to have a low hemoglobin of 7.2 from prior baseline of 9 and positive occult stool test.? He has received a unit of packed red blood cells. Patient was also noted to have transaminitis and hyper bilirubinemia which was attributed to hepatic congestion, splenic congestion, nutritional deficiency and now patient liver biopsy had been obtained which later on reveal amiodarone toxicity. ?Treated with Trental.? Patient's blood pressure has been anywhere in the high 90s to 100 systolic, today we were called by the hospitalist as the patient developed acute shortness of breath and a feeling of unwellness, he had developed hypotension with blood pressure of 84/48, O2 sat of 80% on room air and having some difficulty breathing, chest x-ray did reveal pulmonary congestion.? The concern was the patient also developed a mild leukocytosis and lactic acid of 12.? No of IV fluid administration had been given due to the concern of fluid overload.? They did place the patient on 3 L nasal cannula increasing his O2 sat 94-95%.? Patient overall feeling generally unwell, Lasix, antibiotics and midodrine had been order but the patient was then transferred to the ICU at 3am today. ? Initial workup was not to rule things out including sepsis, ACS, PE, electrolyte abnormalities, acute bleed among others.? Laboratories reveal an elevated troponin and proBNP, the patient does not appear to have chest pain a and does not complain shortness of breath might affect his [place] down with an O2 sat 96% on room air.? He does acknowledge that he does not feel well. After repeating EKG and getting a more lateral and posterior view, it is eminent that he is having ischemic pattern as there is significant ST depressions throughout.? Given his GI bleed history full-dose aspirin will be given but we will await discussed with apiarist prior to deciding upon anticoagulation.? At this point we will hold on any type of vasopressors to to further risk of basal constriction. ?He did get an amp of bicarbonate.Albumin salt 25%. I will await the discussion with apiarist up [facility] for [facility] is not accepting patients at this point. 0500 given the acuity, despite of the risks, we have decided to anticoagulate this patient, will give him a load of heparin 5000 units followed by the drip per protocol, the patient will be typed and crossed and will receive 1 unit packed red blood cells along with 250 cc of normal saline bolus x1 to help with his blood pressure given our inability to use vasopressors. 0515 I was able to discussed the case with Dr. Hathaway apiarist at [facility] who accept that the patient for transfer to the CCU, at this point he does not recommend anticoagulation due to risk of bleeding, they will likely start these upon arrival to their facility.? He is aware that the patient received aspirin. ? Physical exam: Blood pressure 93/46, heart rate 90, respirations 16, O2 sat 97% room air General:?Jaundiced, Alert oriented x3 no acute distress.? Speaking full sentences.? Speech is well articulated, thought process is coherent.? Following all commands. Skin: ?Bilateral leg edema 2+ up to mid tibia, multiple ecchymotic spots bilateral arms and shoulders. ?Intact, no lesions, edema, erythema, clubbing or cyanosis.? No ulcers. HEENT:? Head is normocephalic, atraumatic, pupils equal round reactive to light accommodation bilaterally.? Extraocular movements appear intact.? Buccal mucosa is moist, Neck is supple without lymphadenopathy. Cardiac:? Clear S1-S2, no murmurs rubs or gallops. Pulmonary:? Minimal crackles at the bases otherwise clear without wheezes, rales, rhonchi. Abdomen:? Protuberant, positive bowel sounds in all 4 quadrants.? Soft, nontender, no rebound or guarding.? Musculoskeletal:? Moving all 4 extremities upon request a major joints, there is no crepitus or tenderness.? The strength is 5/5 bilaterally and throughout all 4 extremities.? There is 2+ pitting edema up to mid tibia bilaterally, no calf tenderness , no leg asymmetry.? Gait not assessed at this point. Neurologic:? As above, cranial nerves 2-12 are grossly intact.? No focal deficits noted. Motor strength as above.? Vascular:? 2+ pulses upper and lower extremities distally. ?Less than 2nd capillary refill fingers and toes PMHx: AAA (abdominal aortic aneurysm) Abdominal aortic aneurysm Atrial fibrillation not on blood thinners Chronic kidney disease (CKD) stage G4/A1, severely decreased glomerular filtration rate (GFR) between 15-29 mL/min/1.73 square meter and albuminuria creatinine ratio less than 30 mg/g Congestive heart failure Coronary artery disease post stent 10 years ago. History of CVA (cerebrovascular accident) History of prostate cancer post resection Hypercholesterolemia Hypertension Insomnia Legally blind in right eye, as defined in [place] Obesity (BMI 30-39.9) Peripheral vascular disease Renal artery stenosis Retinal detachment Sick sinus syndrome Type 2 diabetes mellitus with hyperglycemia Venous bleed Surgical Hx : H/O colonoscopy H/O esophagogastroduodenoscopy History of cataract surgery History of pacemaker History of prostatectomy History of thumb surgery History of tonsillectomy Hx of cystoscopy Renal calculi Time Spent with Patient Time attestation: Total time spent providing and/or coordinating discharge services: Discharge coordination time: Greater than 30 minutes Quality: Stroke Does the patient have a stroke diagnosis?: No Physical Exam Vital Signs: Vital Signs: Last Vital Signs Temp 96.4 F L 05/21/21 05:00 Pulse 89 05/21/21 05:00 Resp 19 05/21/21 05:00 BP 86/54 L 05/21/21 05:00 Pulse Ox 94 05/21/21 05:00 Body Mass Index 26.7 DS: Data Data Completed and Pending Completed studies during hospitalization [Text1]: Procedures Excision of Cecum, Via Natural or Artificial Opening Endoscopic, Diagnostic (10/03/20) Excision of Rectum, Via Natural or Artificial Opening Endoscopic, Diagnostic (10/03/20) Excision of Right Lobe Liver, Percutaneous Approach, Diagnostic (04/28/21) Inspection of Upper Intestinal Tract, Via Natural or Artificial Opening Endoscopic (03/26/21) Introduction of Mineral-based Topical Hemostatic Agent into Lower GI, Via Natural or Artificial Opening Endoscopic, [employer] 6 (03/26/21) Transfusion of Autologous Red Blood Cells into Peripheral Vein, Percutaneous Approach (04/28/21) Transfusion of Nonautologous Red Blood Cells into Peripheral Vein, Percutaneous Approach (03/26/21) Labs on day of discharge: Laboratory Results - last 24 hr 05/18/21 05/20/21 05/20/21 16:18 06:10 06:10 WBC 7.0 RBC 2.24 L Hgb 8.0 L Hct 23.9 L MCV 106.7 H MCH 35.7 H MCHC 33.5 RDW 19.9 H Plt Count 103 L MPV 9.9 Immature Gran % (Auto) 0.7 H Neut % (Auto) 79.4 H Lymph % (Auto) 10.3 L [place] % (Auto) 8.3 Eos % (Auto) 1.3 Baso % (Auto) 0.0 Lymph # (Auto) 0.7 L [place] # (Auto) 0.6 Eos # (Auto) 0.1 Baso # (Auto) 0.0 Abs Immat Gran (auto) 0.05 H Absolute Neuts (auto) 5.6 Absolute Nucleated RBC 0.000 Nucleated RBC % (auto) 0.0 Smear Tech's Comments PT INR D-Dimer VBG pH VBG pCO2 VBG pO2 VBG HCO3 VBG O2 Saturation VBG Base Excess Sodium 141 Potassium 3.2 L Chloride 103 Carbon Dioxide 21 L Anion Gap 20 BUN 31 H Creatinine 2.23 H Estim Creat Clear Calc 25.1 Estimated GFR 29 POC Glucose Random Glucose Fasting Glucose 114 H Lactic Acid Lactic Acid Fup @ 2Hr Calcium 7.5 L Total Bilirubin 10.1 H AST 50 H ALT 44 H Alkaline Phosphatase 114 Troponin I High Sens B-Natriuretic Peptide Total Protein 5.8 L Albumin 2.5 L Blood Type O Negative Antibody Screen NEGATIVE Crossmatch See Detail 05/20/21 05/20/21 05/20/21 07:08 11:08 16:10 WBC RBC Hgb Hct MCV MCH MCHC RDW Plt Count MPV Immature Gran % (Auto) Neut % (Auto) Lymph % (Auto) [place] % (Auto) Eos % (Auto) Baso % (Auto) Lymph # (Auto) [place] # (Auto) Eos # (Auto) Baso # (Auto) Abs Immat Gran (auto) Absolute Neuts (auto) Absolute Nucleated RBC Nucleated RBC % (auto) Smear Tech's Comments PT INR D-Dimer VBG pH VBG pCO2 VBG pO2 VBG HCO3 VBG O2 Saturation VBG Base Excess Sodium Potassium Chloride Carbon Dioxide Anion Gap BUN Creatinine Estim Creat Clear Calc Estimated GFR POC Glucose 121 H 154 H 144 H Random Glucose Fasting Glucose Lactic Acid Lactic Acid Fup @ 2Hr Calcium Total Bilirubin AST ALT Alkaline Phosphatase Troponin I High Sens B-Natriuretic Peptide Total Protein Albumin Blood Type Antibody Screen Crossmatch 05/20/21 05/21/21 05/21/21 19:13 00:49 00:49 WBC 11.9 H RBC 2.17 L Hgb 7.9 L Hct 24.0 L MCV 110.6 H MCH 36.4 H MCHC 32.9 RDW 19.7 H Plt Count 119 L MPV 10.9 Immature Gran % (Auto) 0.5 H Neut % (Auto) 90.2 H Lymph % (Auto) 3.0 L [place] % (Auto) 6.1 Eos % (Auto) 0.2 Baso % (Auto) 0.0 Lymph # (Auto) 0.4 L [place] # (Auto) 0.7 Eos # (Auto) 0.0 Baso # (Auto) 0.0 Abs Immat Gran (auto) 0.06 H Absolute Neuts (auto) 10.8 H Absolute Nucleated RBC 0.000 Nucleated RBC % (auto) 0.0 Smear Tech's Comments VERIFIED PT INR D-Dimer VBG pH VBG pCO2 VBG pO2 VBG HCO3 VBG O2 Saturation VBG Base Excess Sodium Potassium Chloride Carbon Dioxide Anion Gap BUN Creatinine Estim Creat Clear Calc Estimated GFR POC Glucose 152 H Random Glucose Fasting Glucose Lactic Acid Lactic Acid Fup @ 2Hr Calcium Total Bilirubin AST ALT Alkaline Phosphatase Troponin I High Sens B-Natriuretic Peptide 3931 H Total Protein Albumin Blood Type Antibody Screen Crossmatch 05/21/21 05/21/21 05/21/21 00:49 03:04 03:04 WBC 10.9 H RBC 2.21 L Hgb 8.0 L Hct 24.1 L MCV 109.0 H MCH 36.2 H MCHC 33.2 RDW 19.8 H Plt Count 112 L MPV 10.0 Immature Gran % (Auto) 0.6 H Neut % (Auto) 89.3 H Lymph % (Auto) 3.6 L [place] % (Auto) 6.3 Eos % (Auto) 0.2 Baso % (Auto) 0.0 Lymph # (Auto) 0.4 L [place] # (Auto) 0.7 Eos # (Auto) 0.0 Baso # (Auto) 0.0 Abs Immat Gran (auto) 0.06 H Absolute Neuts (auto) 9.7 H Absolute Nucleated RBC 0.000 Nucleated RBC % (auto) 0.0 Smear Tech's Comments PT INR D-Dimer VBG pH VBG pCO2 VBG pO2 VBG HCO3 VBG O2 Saturation VBG Base Excess Sodium Potassium Chloride Carbon Dioxide Anion Gap BUN Creatinine Estim Creat Clear Calc Estimated GFR POC Glucose Random Glucose Fasting Glucose Lactic Acid 12.3 H* Lactic Acid Fup @ 2Hr 10.8 H* Calcium Total Bilirubin AST ALT Alkaline Phosphatase Troponin I High Sens B-Natriuretic Peptide Total Protein Albumin Blood Type Antibody Screen Crossmatch 05/21/21 05/21/21 05/21/21 03:04 03:04 03:05 WBC RBC Hgb Hct MCV MCH MCHC RDW Plt Count MPV Immature Gran % (Auto) Neut % (Auto) Lymph % (Auto) [place] % (Auto) Eos % (Auto) Baso % (Auto) Lymph # (Auto) [place] # (Auto) Eos # (Auto) Baso # (Auto) Abs Immat Gran (auto) Absolute Neuts (auto) Absolute Nucleated RBC Nucleated RBC % (auto) Smear Tech's Comments PT INR D-Dimer VBG pH 7.48 H VBG pCO2 24 VBG pO2 37 VBG HCO3 18 L VBG O2 Saturation 57.0 VBG Base Excess -3.8 Sodium 140 Potassium 3.6 Chloride 103 Carbon Dioxide 16 L Anion Gap 25 H BUN 34 H Creatinine 2.78 H Estim Creat Clear Calc 20.1 Estimated GFR 22 POC Glucose Random Glucose 173 H D Fasting Glucose Lactic Acid Lactic Acid Fup @ 2Hr Calcium 7.8 L Total Bilirubin AST ALT Alkaline Phosphatase Troponin I High Sens 487.0 H* D B-Natriuretic Peptide Total Protein Albumin Blood Type Antibody Screen Crossmatch 05/21/21 05/21/21 03:13 03:22 WBC RBC Hgb Hct MCV MCH MCHC RDW Plt Count MPV Immature Gran % (Auto) Neut % (Auto) Lymph % (Auto) [place] % (Auto) Eos % (Auto) Baso % (Auto) Lymph # (Auto) [place] # (Auto) Eos # (Auto) Baso # (Auto) Abs Immat Gran (auto) Absolute Neuts (auto) Absolute Nucleated RBC Nucleated RBC % (auto) Smear Tech's Comments PT 17.7 H INR 1.5 H D-Dimer 1810 VBG pH VBG pCO2 VBG pO2 VBG HCO3 VBG O2 Saturation VBG Base Excess Sodium Potassium Chloride Carbon Dioxide Anion Gap BUN Creatinine Estim Creat Clear Calc Estimated GFR POC Glucose 169 H Random Glucose Fasting Glucose Lactic Acid Lactic Acid Fup @ 2Hr Calcium Total Bilirubin AST ALT Alkaline Phosphatase Troponin I High Sens B-Natriuretic Peptide Total Protein Albumin Blood Type Antibody Screen Crossmatch Discharge Plan Discharge Patient Disposition: Xfer Acute Care Hospital Discharge Diagnosis: NON STEMI Referrals: [facility] [Primary Care Provider] - 1 Week Discharge Medications: No Action (DME) pen needle, diabetic [BD Ultra-Fine Mini Pen Needle] 31 gauge x 3/16 needle See Rx Instructions .ROUTE .MEDSUPPLY Qty: 100 RF: 0 (DME) lancets [OneTouch Delica Plus Lancet] 30 gauge misc See Rx Instructions .Route Qty: 300 RF: 0 (DME) OneTouch Verio test strips Strip See Rx Instructions .ROUTE .MEDSUPPLY Qty: 3 RF: 3 Tresiba FlexTouch U-100 100 unit/mL (3 mL) insulin pen 30 unit subcut DAILY@1700 RF: 0 acetaminophen 325 mg Tablet 650 mg PO Q4H PRN (Reason: Pain (Scale Score 1-3)) RF: 0 cetirizine 5 mg Tablet 5 mg PO BEDTIME RF: 0 cholecalciferol (vitamin D3) 25 mcg (1,000 unit) Tablet 25 mcg PO DAILY RF: 0 metoprolol tartrate 25 mg tablet 12.5 mg PO BID Qty: 60 RF: 0 hydrocortisone [Procto-Med HC] 2.5 % Cream With Perineal Applicator 1 appl IA BID RF: 0 docusate sodium [Colace] 100 mg Capsule 100 mg PO DAILY RF: 0 zinc sulfate 220 mg Capsule 220 mg PO DAILY RF: 0 omeprazole 20 mg capsule,delayed release(DR/EC) 40 mg PO DAILY RF: 0 prednisone 10 mg tablet See Rx Instructions .Route .COMPLEX Qty: 75 RF: 0 omega 5-rbb-kso-fish oil [Fish Oil] 1,200 (144-216) mg capsule 1 cap PO DAILY RF: 0 torsemide 20 mg tablet 20 mg PO BID RF: 0 polyethylene glycol 3350 [Miralax] 17 gram/dose powder 17 g PO DAILY RF: 0 Discharge Orders: Discharge Order (Routine); Ordered 05/21/21 Ordered By: Rudi James Stand Alone Forms: Patient Portal Discharge page Care Plan Goals: CCU Health Concerns: NSTEMI Plan of Treatment: ? 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
[2021-05-21 05:49] LABS: MANUAL DIFF FLAG NO
[2021-05-21 05:55] LABS: Basophils Percent Auto 0.1 % (0-2); Eosinophils Percent Auto 0.3 % (0-4); Hematocrit 24.1 % (42.0-52.0); Hemoglobin 7.7 g/dl (14.0-18.0); Imm Gran Abs Auto 0.04 X10*3/uL (0.00-0.03); Imm Gran Pct Auto 0.4 % (0.0-0.4); Lymphocytes Absolute Auto 0.5 X10*3/uL (1.2-4.9); Mean Corpuscular Hemoglobin 35.5 pg (27.0-33.0); Mean Corpuscular Volume 111.1 fL (80.0-98.0); Mean Platelet Volume 10.5 fL (9.4-12.4); Monocytes Absolute Auto 0.7 X10*3/uL (0.1-1.2); Monocytes Percent Auto 8.1 % (2-11); Neutrophils Absolute Auto 7.8 x10*3/uL (2.0-8.3); Neutrophils Percent Auto 86.1 % (45-73); Platelet Count 103 X10*3/uL (160-400); Red Blood Count 2.17 X10*6/uL (4.60-5.80); Red Cell Distribution Width 19.5 % (11.0-16.0); White Blood Count 9.1 X10*3/uL (4.8-10.8)
[2021-05-21 06:12] LABS: Alanine Aminotransferase 39 U/L (0-40); Albumin Level 2.4 g/dL (3.5-5.0); Alkaline Phosphatase 113 U/L (39-117); Anion Gap 24 (12-20); Aspartate Amino Transferase 42 U/L (5-37); Bilirubin Total 9.6 mg/dL (0.0-1.0); Blood Urea Nitrogen 34 mg/dL (9-16); Calcium 7.7 mg/dL (8.4-10.2); Carbon Dioxide 17 mmol/L (22-29); Chloride 104 mmol/L (96-108); Creatinine Clr Calc Pharmacy 19.9; Estimated Glomerular Filt Rate 22; Glucose Fasting 176 mg/dL (60-99); Potassium 3.6 mmol/L (3.3-5.1); Sodium 141 mmol/L (135-145); Total Protein 5.3 g/dL (6.5-8.0); ~Lactic Acid-LAB USE ONLY 8.3 mmol/L (0.5-2.0)
[2021-05-21] MEDS: Sodium Bicarbonate 8.4% 50 MEQ/50 ML VIAL IVPUSH (06:28)
[2021-05-21] MEDS: Pantoprazole Sodium 40 MG/10 ML VIAL IVPUSH (06:29)
[2021-05-21] MEDS: 0.9 % Sodium Chloride 500 ML 250 ML IVCONT (06:29)
[2021-05-21 07:24] LABS: Glucose, Whole Blood 160 mg/dL (60-115)
--- NOTE | 2021-05-21 07:55 | P.CDIR_ITS ---
Documented by User: Deb Carty RN 05/21/21 08:00 Retrospective Query PHYSICIAN'S DOCUMENTATION REQUEST Date of Query: 05/21/21 0756 Patient Name: Florencio Rosales Admit Date: 05/18/21 Dear Doctor, A review of the medical record indicates additional documentation may be needed. Please review below and update the documentation accordingly. Clinical Indicators: Risk Factors/Clinical Indicators/Treatments Per ED ntoe, recheck abnormal labs H/H: 7.2/21.8 transfusion 2 units PRBCs stool OB positive GI bleed, melena Per H&P: Acute/Chronic Anemia multifactoral related to CKD4, radiation proctitis, GAVE, bone marrow disease GI bleed Based on the above, could you clarify in the Progress Notes which of the following is the most likely type of anemia you are evaluating, treating, and/or monitoring? * Acute blood loss anemia * Acute blood loss anemia with baseline chronic anemia (specify type) * Anemia of chronic disease- indicate if neoplastic disease, CKD, or other * Other ? please specify * Unable to determine Use of terms such as suspected, likely, concern for, or probable (associated with a specific diagnosis that is being evaluated, monitored, or treated as if it exists) are acceptable and can be coded in the inpatient setting, when documented at the time of discharge. Thank you, Deb Carty RN Extension: [phone] Please use your independent medical judgment in providing your response. THIS QUERY IS PART OF THE PERMANENT MEDICAL RECORD Documented by User: Samuel Jarrell DO 06/26/21 10:24 Retrospective Query Provider Response: Other
== END 2021-05-21 07:30 | disposition short-term general hospital (02) | DRG 280 ==
LOC: HO.ED 20:18 → HO.EDOVER 21:14 → HO.S3 05-19 06:17 → HO.IMC 05-21 02:13 → HO.ICU 05-21 02:42
PROVIDERS: Physician Assistant Medical; Admitting Provider Internal Medicine; Emergency Provider Internal Medicine; PCP Nurse Practitioner Family; Visit Provider Hospitalist
DX: I21.4 Non-ST elevation (NSTEMI) myocardial infarction (principal); I26.99 Other pulmonary embolism without acute cor pulmonale; I13.0 Hypertensive heart and chronic kidney disease with heart failure and stage 1 through stage 4 chronic kidney disease, or unspecified chronic kidney disease; E87.2 Acidosis; N18.4 Chronic kidney disease, stage 4 (severe); H54.8 Legal blindness, as defined in USA; E11.22 Type 2 diabetes mellitus with diabetic chronic kidney disease; E78.5 Hyperlipidemia, unspecified; K62.7 Radiation proctitis; I25.10 Atherosclerotic heart disease of native coronary artery without angina pectoris; K71.8 Toxic liver disease with other disorders of liver; I50.9 Heart failure, unspecified; T46.2X5A Adverse effect of other antidysrhythmic drugs, initial encounter; Y92.9 Unspecified place or not applicable; Z95.0 Presence of cardiac pacemaker; I95.9 Hypotension, unspecified; K31.819 Angiodysplasia of stomach and duodenum without bleeding; D63.1 Anemia in chronic kidney disease; I71.4 Abdominal aortic aneurysm, without rupture; E88.09 Other disorders of plasma-protein metabolism, not elsewhere classified; Z87.891 Personal history of nicotine dependence; Z79.4 Long term (current) use of insulin; Z79.899 Other long term (current) drug therapy; Z86.73 Personal history of transient ischemic attack (TIA), and cerebral infarction without residual deficits; Z85.46 Personal history of malignant neoplasm of prostate; K63.5 Polyp of colon; K64.9 Unspecified hemorrhoids
CPT/HCPCS: 36415; 36430; 71045; 80048; 80053; 82272; 82803; 82947; 83605; 83880; 84484; 85014; 85018; 85025; 85379; 85610; 86850; 86900; 86901; 86923; 87040; 93005; 96374; 99285; C1758; J2405; J3370; P9016